=== PATIENT | male | born 1940 | race American Indian/Alaskan Native ===

== ENCOUNTER 2019-08-22 10:10 | Emergency (ER) | payer MEDICARE ==
[2019-08-22 11:03] LABS: Basophils % (Auto) 0.9 % (0.0-1.8); Eosinophils % (Auto) 0.7 % (0.0-4.3); Hematocrit 33.2 % (35.5-45.6); Hemoglobin 10.9 gm/dl (11.8-15.2); Lymphocytes # (Auto) 1.5 K/mm3 (1.2-5.4); Lymphocytes % (Auto) 39.7 % (13.4-35.0); Mean Corpuscular HGB Conc 33 % (32-34); Mean Corpuscular Volume 100 fl (84-94); Monocytes # (Auto) 0.3 K/mm3 (0.0-0.8); Monocytes % (Auto) 7.9 % (0.0-7.3); Platelet Count 137 K/mm3 (140-440); Red Blood Count 3.33 M/mm3 (3.65-5.03); Red Cell Distribution Width 15.2 % (13.2-15.2)
[2019-08-22 11:25] LABS: Albumin 3.9 g/dL (3.9-5); Calcium 9.2 mg/dL (8.4-10.2)
--- NOTE | 2019-08-22 12:39 | Emergency Department Report ---
HPI - General Chief Complaint: Fall Time Seen by Provider: 08/22/19 12:24 - HPI HPI: Room 7 The patient is an 79-year-old male presenting with a chief complaint of falls. Family brings the patient in stating that he has fallen twice in the past 6 days. Family states the patient first fell after becoming agitated 5 days ago. This morning at 06:00 she heard the patient fall and when she went in the bathroom she saw the patient lying on the floor on his right side with his head up against the toilet. Patient did not appear to have lost consciousness. The patient has a history of dementia and family states that he is behaving like his normal self as she is supposed to make sure there is no major damage done to his head from the fall. Patient denies complaints Location: [See above] Duration: [See above] Quality: [See above] Severity: [See above] Timing: [See above] Context: [See above] Modifying factors: [See above] Associated signs and symptoms: [see above] ED Past Medical Hx - Past Medical History Previous Medical History?: Yes Hx Hypertension: Yes Hx Renal Disease: Yes (stage 3) Hx Dementia: Yes Additional medical history: enlarged prostate - Surgical History Past Surgical History?: Yes Additional Surgical History: cataracts - Family History Family history: no significant - Social History Smoking Status: Never Smoker Substance Use Type: Alcohol (rarely) - Medications Home Medications: Home Medications Medication Instructions Recorded Confirmed Last Taken Type traMADoL [Ultram] 50 mg PO Q6HR PRN #10 tablet 08/22/19 Unknown Rx ED Review of Systems ROS: Stated complaint: FALL Other details as noted in HPI Constitutional: no symptoms reported Eyes: denies: eye pain ENT: denies: throat pain Respiratory: no symptoms reported Cardiovascular: denies: chest pain Endocrine: no symptoms reported Gastrointestinal: denies: abdominal pain Genitourinary: denies: dysuria Musculoskeletal: denies: back pain Neurological: denies: headache Physical Exam - Physical Exam Vital Signs: Vital Signs 08/22/19 10:27 Temperature 97.4 F L Pulse Rate 52 L Respiratory 17 Rate Blood Pressure 135/81 O2 Sat by Pulse 100 Oximetry Physical Exam: GENERAL: The patient is well-developed well-nourished male lying on stretcher not appearing to be in acute distress. [] HEENT: Normocephalic. Subacute healing abrasion to the forehead. Extraocular m otions are intact. Patient has moist mucous membranes. NECK: Supple. There is no anorexia. All CHEST/LUNGS: Clear to auscultation. There is no respiratory distress noted. HEART/CARDIOVASCULAR: Regular. There is no tachycardia. There is no gallop rub or murmur. ABDOMEN: Abdomen is soft, nontender. Patient has normal bowel sounds. There is no abdominal distention. SKIN: There is no rash. There is no edema. There is no diaphoresis. NEURO: The patient is awake, alert, and pleasantly demented. The patient is cooperative. The patient has no focal neurologic deficits. The patient has nor mal speech. Cranial nerves II through XII grossly intact MUSCULOSKELETAL: We'll get her salicylate level: There is no evidence of acute injury. ED Course Vital Signs 08/22/19 10:27 Temperature 97.4 F L Pulse Rate 52 L Respiratory 17 Rate Blood Pressure 135/81 O2 Sat by Pulse 100 Oximetry ED Medical Decision Making - Lab Data Result diagrams: 08/22/19 10:51 08/22/19 10:51 - Radiology Data Radiology results: report reviewed (CT cervical spine), image reviewed (CT head, CT cervical spine) [place] [address] Cat Scan Report Signed Patient: JOHNNIE NEGRON MR#: [id number] : 1940 Acct:[id number] Age/Sex: 79 / M ADM Date: 08/22/19 Loc: ED Attending Dr: Ordering Physician: DINO HENRIQUEZ MD Date of Service: 08/22/19 Procedure(s): CT cervical spine wo con Accession Number(s): [id number] cc: DINO HENRIQUEZ MD CT CERVICAL SPINE SPINE WITHOUT CONTRAST INDICATION: Injury after fall. TECHNIQUE: Axial imaging performed through the cervical spine without the use of contrast. Sagittal and coronal reconstructed images were also reviewed. All CT scans at this location are performed using CT dose reduction for ALARA by means of automated exposure control. COMPARISON: None FINDINGS: Alignment: Spinal alignment is normal. Bones: There is no acute osseous abnormality. Mild to moderate degenerative disc disease is identified at C5-6. The remaining levels are within normal limits. Soft tissues: No acute or significant incidental soft tissue abnormality. IMPRESSION: Degenerative changes at C5-6. No evidence for acute injury. Signer Name: Jonah Keith Jr, MD Signed: 08/22/2019 2:58 PM Workstation Name: [id number] Transcribed By: TTR Dictated By: JONAH KEITH JR, MD Electronically Authenticated By: JONAH KEITH JR, MD Signed Date/Time: 08/22/191457 DD/ 56 TD/TT: - Differential Diagnosis closed head injury, ICH, cervical strain, cervical fracture Critical care attestation.: If time is entered above; I have spent that time in minutes in the direct care of this critically ill patient, excluding procedure time. ED Disposition Clinical Impression: Closed head injury, Pancytopenia Disposition: - TO HOME OR SELFCARE Is pt being admited?: No Does the pt Need Aspirin: No Condition: Stable Instructions: Minor Head Injury (ED) Additional Instructions: Return to the emergency department should you develop worsening symptoms, inability to tolerate food or liquids, high fever or any other concerns Prescriptions: traMADoL [Ultram] 50 mg PO Q6HR PRN #10 tablet PRN Reason: Pain Referrals: PRIMARY CARE, [Primary Care Provider] - 3-5 Days
[2019-08-22 14:15] VITALS: BP 143/70
--- NOTE | 2019-08-22 15:03 | Cat Scan Report ---
CT CERVICAL SPINE SPINE WITHOUT CONTRAST INDICATION: Injury after fall. TECHNIQUE: Axial imaging performed through the cervical spine without the use of contrast. Sagittal and coronal reconstructed images were also reviewed. All CT scans at this location are performed us ing CT dose reduction for ALARA by means of automated exposure control. COMPARISON: None FINDINGS: Alignment: Spinal alignment is normal. Bones: There is no acute osseous abnormality. Mild to moderate degenerative disc disease is identif ied at C5-6. The remaining levels are within normal limits. Soft tissues: No acute or significant incidental soft tissue abnormality. IMPRESSION: Degenerative changes at C5-6. No evidence for acute injury. Signer Name: Jonah Keith Jr, MD Signed: 08/22/2019 2:58 PM Workstation Name: [id number]
[2019-08-22 15:41] LABS: Bilirubin,Urine NEG (Negative); Blood,Urine NEG (Negative); Color,Urine Yellow (Yellow); Protein,Urine <15 mg/dL mg/dL (Negative); RBC,Urine < 1.0 /HPF (0.0-6.0); Urobilinogen,Urine < 2.0 mg/dL (<2.0); WBC,Urine < 1.0 /HPF (0.0-6.0)
--- NOTE | 2019-08-25 19:07 | Cat Scan Report ---
CT HEAD WITHOUT CONTRAST INDICATION / CLINICAL INFORMATION: head injury after fall. TECHNIQUE: Axial imaging performed from the skull apex through the skull base without the use of cont rast. Sagittal and coronal reformatted images. All CT scans at this location are performed using CT dose reduction for ALARA by means of automated exposure control. COMPARISON: None available. 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 The remaining brain parenchyma demonstrates normal density for this patient's age. Mild volume loss and c hronic white matter changes are noted. HEMORRHAGE: None. EXTRA-AXIAL SPACES: Normal in size and morphology for the patient's age. VENTRICULAR SYSTEM: Normal in size and morphology for the patient's age. MIDLINE SHIFT OR HERNIATION: None. CEREBELLUM / BRAINSTEM: No significant abnormality. CALVARIUM: No significant abnormality. ORBITS: Normal as visualized. PARANASAL SINUSES / MASTOID AIR CELLS: There appear to be retained secretions or possibly a polyp in the right sphenoid sinus. The remaining sinuses are clear. SOFT TISSUES of HEAD: No significant abnormality. ADDITIONAL FINDINGS: None. IMPRESSION: No acute intracranial abnormality. Signer Name: Jonah Keith Jr, MD Signed: 08/22/2019 2:32 PM Workstation Name: [id number]
== END 2019-08-22 16:07 | disposition home or self-care (01) ==
LOC: ED 10:10
DX: S00.81XA Abrasion of other part of head, initial encounter (principal); R51 Headache; I12.9 Hypertensive chronic kidney disease with stage 1 through stage 4 chronic kidney disease, or unspecified chronic kidney disease; N18.3 Chronic kidney disease, stage 3 (moderate); Z79.899 Other long term (current) drug therapy; W18.12XA Fall from or off toilet with subsequent striking against object, initial encounter; Y93.89 Activity, other specified; Y92.091 Bathroom in other non-institutional residence as the place of occurrence of the external cause; Y99.8 Other external cause status
CPT/HCPCS: 36415; 70450; 72125; 80053; 81001; 85025; 99284

== ENCOUNTER 2019-11-04 08:45 | Inpatient (IN) | payer MEDICARE ==
[2019-11-04] MEDS ORDERED: SODIUM CHLORIDE 0.9% 1000 ML 1,000 ML ONE ×2 (09:19→20:04)
[2019-11-04] MEDS ORDERED: SODIUM CHLORIDE 0.9% 1000 ML 1,000 ML IV ONE (09:40)
[2019-11-04 09:42] LABS: Hematocrit 32.2 % (35.5-45.6); Hemoglobin 10.2 gm/dl (11.8-15.2); Mean Corpuscular HGB Conc 32 % (32-34); Mean Corpuscular Volume 100 fl (84-94); Platelet Count 187 K/mm3 (140-440); Red Blood Count 3.22 M/mm3 (3.65-5.03); Red Cell Distribution Width 17.5 % (13.2-15.2)
[2019-11-04 09:56] LABS: INR 1.25 (0.87-1.13); Partial Thromboplastin Time 27.7 Sec. (24.2-36.6)
[2019-11-04 09:59] LABS: Creatine Kinase MB 14.7 ng/mL (0.0-4.0)
[2019-11-04 10:01] LABS: Alanine Aminotransferase 71 units/L (7-56); Albumin 2.9 g/dL (3.9-5); BUN/Creatinine Ratio 26; Blood Urea Nitrogen 78 mg/dL (9-20); Calcium 9.7 mg/dL (8.4-10.2); Hemolysis Index 10
--- NOTE | 2019-11-04 10:02 | XRay Report ---
CHEST 1 VIEW 11/04/2019 9:36 AM INDICATION / CLINICAL INFORMATION: YANNA. COMPARISON: Chest x-ray 09/14/2019 FINDINGS: SUPPORT DEVICES: None. HEART / MEDIASTINUM: No significant abnormality. LUNGS / PLEURA: Mild right-sided parenchymal disease has improved characteristic for resolving pneumo andrew. Previously noted left-sided pneumonia has nearly resolved with minimal residual parenchymal dise ase left lower lobe. No pneumothorax. ADDITIONAL FINDINGS: No significant additional findings. IMPRESSION: 1. Resolving bilateral bronchopneumonia. Signer Name: Carlos Du MD Signed: 11/04/2019 9:58 AM Workstation Name: [id number]
[2019-11-04 10:03] LABS: Bilirubin,Direct < 0.2 mg/dL (0-0.2)
--- NOTE | 2019-11-04 10:06 | Emergency Department Report ---
ED General Adult HPI - General Chief complaint: Altered Mental Status Stated complaint: ALTERED MENTAL STATUS Time Seen by Provider: 11/04/19 09:21 Source: EMS Mode of arrival: Stretcher Limitations: Altered Mental Status, Physical Limitation - History of Present Illness Initial comments: This is 79-year-old gentleman from [facility]. Medics states that they were summoned for altered mental status. They state that they were not informed of the patient's low blood pressure or if he had any recent history of fever. He arrived at this facility with respiratory difficulty. He was not able to provide any historical information. His blood pressure was 60 systolic. He was given fluid resuscitation and a central line was immediately placed. He was able to protect his airway and his pulse oximetry was adequately preserved (95%). He is noted to have a G-tube. Severity scale (0 -10): 0 - Related Data Home Medications Medication Instructions Recorded Confirmed Last Taken AtorvaSTATin [Lipitor] 40 mg PO QHS 09/09/19 11/04/19 Unknown Cyanocobalamin [Vitamin B-12] 1,000 mcg IM QMONTH 09/09/19 11/04/19 Unknown Finasteride [Proscar] 5 mg PO QHS 09/09/19 11/04/19 Unknown Folic Acid 1 mg PO DAILY 09/09/19 11/04/19 Unknown Vit-Fe Fumar-FA [ 1 tab PO DAILY 09/09/19 11/04/19 Unknown Vitamin] allopurinoL [Zyloprim] 300 mg PO QDAY 09/09/19 11/04/19 Unknown Previous Rx's Medication Instructions Recorded Last Taken Type Lansoprazole Solutab [Prevacid 30 mg FEEDTUBE QDAY 30 Days 10/09/19 Unknown Rx Solutab] tab.rapdis Metoprolol Xl [Metoprolol 25 mg PO QDAY #30 tablet 10/09/19 Unknown Rx SUCCINATE ER TAB] Tamsulosin [Flomax] 0.4 mg PO QDAY #30 capsule 10/09/19 Unknown Rx Allergies Allergy/AdvReac Type Severity Reaction Status Date / Time No Known Allergies Allergy Unverified 07/23/13 13:35 ED Review of Systems ROS: Stated complaint: ALTERED MENTAL STATUS Other details as noted in HPI Comment: Unobtainable due to pts medical conditions ED Past Medical Hx - Past Medical History Hx Hypertension: Yes Hx Renal Disease: Yes (stage 3. ARF) Hx Dementia: Yes Additional medical history: enlarged prostate - Surgical History Additional Surgical History: cataracts - Social History Smoking Status: Unknown if ever smoked Other Social History: [facility] resident - Medications Home Medications: Home Medications Medication Instructions Recorded Confirmed Last Taken Type AtorvaSTATin [Lipitor] 40 mg PO QHS 09/09/19 11/04/19 Unknown History Cyanocobalamin [Vitamin B-12] 1,000 mcg IM QMONTH 09/09/19 11/04/19 Unknown History Finasteride [Proscar] 5 mg PO QHS 09/09/19 11/04/19 Unknown History Folic Acid 1 mg PO DAILY 09/09/19 11/04/19 Unknown History Vit-Fe Fumar-FA [ 1 tab PO DAILY 09/09/19 11/04/19 Unknown History Vitamin] allopurinoL [Zyloprim] 300 mg PO QDAY 09/09/19 11/04/19 Unknown History Lansoprazole Solutab [Prevacid 30 mg FEEDTUBE QDAY 30 Days 10/09/19 11/04/19 Unknown Rx Solutab] tab.rapdis Metoprolol Xl [Metoprolol 25 mg PO QDAY #30 tablet 10/09/19 11/04/19 Unknown Rx SUCCINATE ER TAB] Tamsulosin [Flomax] 0.4 mg PO QDAY #30 capsule 10/09/19 11/04/19 Unknown Rx ED Physical Exam - General Limitations: Altered Mental Status, Physical Limitation General appearance: lethargic - Head Head exam: Present: atraumatic - Eye Eye exam: Present: PERRL. Absent: scleral icterus - ENT ENT exam: Present: mucous membranes dry - Neck Neck exam: Present: normal inspection - Respiratory Respiratory exam: Present: rhonchi, accessory muscle use, decreased breath sounds - Cardiovascular Cardiovascular Exam: Present: regular rate, normal rhythm. Absent: systolic murmur, diastolic murmur, rubs, gallop - GI/Abdominal GI/Abdominal exam: Present: soft, other (G tube site is clean with good hygiene). Absent: distended, tenderness, guarding, rebound, rigid - Extremities Exam Extremities exam: Present: normal inspection - Neurological Exam Neurological exam: Present: CN II-XII intact (as testable). Absent: motor sensory deficit - Psychiatric Psychiatric exam: Present: flat affect - Skin Skin exam: Present: warm, dry, intact, normal color. Absent: rash ED Course Vital Signs 11/04/19 11/04/19 11/04/19 08:53 09:00 09:16 Temperature Pulse Rate Respiratory 51 H 46 H Rate Blood Pressure 145/94 156/137 169/151 Blood Pressure [Left] O2 Sat by Pulse Oximetry 11/04/19 11/04/19 11/04/19 09:30 09:35 09:37 Temperature 95.6 F L 95.6 F L Pulse Rate 104 H 104 H Respiratory 54 H 40 H Rate Blood Pressure 58/33 Blood Pressure 58/33 [Left] O2 Sat by Pulse 96 Oximetry 11/04/19 11/04/19 11/04/19 09:45 10:00 10:16 Temperature Pulse Rate 102 H 99 H 93 H Respiratory 35 H 42 H 22 Rate Blood Pressure 67/32 61/37 63/24 Blood Pressure [Left] O2 Sat by Pulse 95 97 78 L Oximetry 11/04/19 11/04/19 11/04/19 10:30 10:45 11:00 Temperature Pulse Rate 99 H 94 H 95 H Respiratory 37 H 38 H 52 H Rate Blood Pressure 91/47 65/37 60/30 Blood Pressure [Left] O2 Sat by Pulse 99 98 97 Oximetry 11/04/19 11/04/19 11:15 11:16 Temperature Pulse Rate 95 H Respiratory 38 H 30 H Rate Blood Pressure Blood Pressure 60/30 [Left] O2 Sat by Pulse 97 97 Oximetry - Reevaluation(s) Reevaluation #1: Patient was given IV fluids. He was cultured. He was given antibiotics. His chest x-ray to me was suggested an infiltrate. Thus far no other focus of in fection was noted. Sepsis is presumed. He was found to be severely hyponatremic and hyperchloremic. His first liter with normal saline. I followed that by lactated Ringer's. Further fluid resuscitation will be per Dr. Dunaway. 11/04/19 13:34 11/04/19 13:40 I discussed with the family the patient's resuscitation status and how aggressive they would like us to be with his care RE mechanical ventilation if necessary or CPR. The or daughter informed me that she wanted everything done. She did admit that the patient is aphasic with obviously poor quality of life in the [facility]. She states that he was septic here in September. I informed her that he was likely suffering from septic shock again and that his prognosis may be poor. Dr. Dunaway also discussed resuscitation status with the family and received the same request. The patient does not require mechanical ventilator at this time. His pulse oximetry is fine and he is maintaining his airway. He is admitted to the ICU. - Central Line Placement Right Femoral Consent Obtained: emergent situation Time Out Performed: Yes Patient Placed on Monitor/Pulse Ox: Yes MD Prep: mask, gown, gloves, other Central Line Prep: Chlorhexidine scrub Local Anesthesia Used: Lidocaine 1% Amount of Anesthesia Used (mls): 5 (cc) Ultrasound Used for Placement: No Central Line Lumen Inserted: triple Bloods Obtained for Lab: Yes Central Line Position: good blood return (venous, nonpulsatile), all ports aspirated, flus, sutured in place with nyl Dressing Applied: Tegaderm Patient Tolerated Procedure: well Complications: none ED Medical Decision Making - Lab Data Result diagrams: 11/04/19 09:10 11/04/19 09:10 Laboratory Results - last 24 hr 11/04/19 11/04/19 11/04/19 09:10 09:10 09:10 WBC 7.4 RBC 3.22 L Hgb 10.2 L Hct 32.2 L MCV 100 H MCH 32 MCHC 32 RDW 17.5 H Plt Count 187 PT 15.9 H INR 1.25 H APTT 27.7 Sodium Potassium Chloride Carbon Dioxide Anion Gap BUN Creatinine Estimated GFR BUN/Creatinine Ratio Glucose Lactic Acid Calcium Magnesium Total Bilirubin Direct Bilirubin Indirect Bilirubin AST ALT Alkaline Phosphatase Total Creatine Kinase CK-MB (CK-2) CK-MB (CK-2) Rel Index Troponin T 0.193 H* NT-Pro-B Natriuret Pep Total Protein Albumin Albumin/Globulin Ratio 11/04/19 11/04/19 09:10 09:10 WBC RBC Hgb Hct MCV MCH MCHC RDW Plt Count PT INR APTT Sodium 160 H Potassium 4.3 Chloride 116.1 H Carbon Dioxide 16 L Anion Gap 32 BUN 78 H Creatinine 3.0 H Estimated GFR 24 BUN/Creatinine Ratio 26 Glucose 127 H Lactic Acid 10.90 H* Calcium 9.7 Magnesium 2.30 Total Bilirubin 0.40 Direct Bilirubin < 0.2 Indirect Bilirubin 0.2 AST 67 H ALT 71 H Alkaline Phosphatase 90 Total Creatine Kinase 815 H CK-MB (CK-2) 14.7 H CK-MB (CK-2) Rel Index 1.8 Troponin T NT-Pro-B Natriuret Pep 554.4 Total Protein 7.6 Albumin 2.9 L Albumin/Globulin Ratio 0.6 Laboratory Results - last 24 hr 11/04/19 11/04/19 11/04/19 09:10 09:10 09:10 WBC 7.4 RBC 3.22 L Hgb 10.2 L Hct 32.2 L MCV 100 H MCH 32 MCHC 32 RDW 17.5 H Plt Count 187 Add Manual Diff Complete Total Counted 100 Seg Neuts % (Manual) 77.0 H Band Neutrophils % 9.0 Lymphocytes % (Manual) 8.0 L Reactive Lymphs % (Man) 0 Monocytes % (Manual) 3.0 Eosinophils % (Manual) 2.0 Basophils % (Manual) 0 Metamyelocytes % 1.0 Myelocytes % 0 Promyelocytes % 0 Blast Cells % 0 Nucleated RBC % Not Reportable Seg Neutrophils # Man 5.7 Band Neutrophils # 0.7 Lymphocytes # (Manual) 0.6 L Abs React Lymphs (Man) 0.0 Monocytes # (Manual) 0.2 Eosinophils # (Manual) 0.1 Basophils # (Manual) 0.0 Metamyelocytes # 0.1 Myelocytes # 0.0 Promyelocytes # 0.0 Blast Cells # 0.0 WBC Morphology Not Reportable Hypersegmented Neuts Not Reportable Hyposegmented Neuts Not Reportable Hypogranular Neuts Not Reportable Smudge Cells Not Reportable Toxic Granulation Not Reportable Toxic Vacuolation Not Reportable Dohle Bodies Not Reportable Pelger-Huet Anomaly Not Reportable Kp Rods Not Reportable Platelet Estimate Consistent w auto Clumped Platelets Not Reportable Plt Clumps, EDTA Not Reportable Large Platelets Not Reportable Giant Platelets Not Reportable Platelet Satelliting Not Reportable Plt Morphology Comment Not Reportable RBC Morphology Not Reportable Dimorphic RBCs Not Reportable Polychromasia Not Reportable Hypochromasia Not Reportable Poikilocytosis Not Reportable Anisocytosis Few Microcytosis Not Reportable Macrocytosis Not Reportable Spherocytes Not Reportable Pappenheimer Bodies Not Reportable Sickle Cells Not Reportable Target Cells Not Reportable Tear Drop Cells Not Reportable Ovalocytes Not Reportable Helmet Cells Not Reportable [employer] Bodies Not Reportable [place] Rings Not Reportable [place] Cells Not Reportable Bite Cells Not Reportable Crenated Cell Not Reportable Elliptocytes Not Reportable Acanthocytes (Spur) Not Reportable Rouleaux Not Reportable Hemoglobin C Crystals Not Reportable Schistocytes Not Reportable Malaria parasites Not Reportable Warren Bodies Not Reportable Hem Pathologist Commnt No PT 15.9 H INR 1.25 H APTT 27.7 ABG pH ABG pCO2 ABG pO2 ABG HCO3 ABG O2 Saturation ABG O2 Content ABG Base Excess ABG Hemoglobin ABG Carboxyhemoglobin ABG Methemoglobin Oxyhemoglobin FiO2 Sodium Potassium Chloride Carbon Dioxide Anion Gap BUN Creatinine Estimated GFR BUN/Creatinine Ratio Glucose Lactic Acid Calcium Magnesium Total Bilirubin Direct Bilirubin Indirect Bilirubin AST ALT Alkaline Phosphatase Total Creatine Kinase CK-MB (CK-2) CK-MB (CK-2) Rel Index Troponin T 0.193 H* NT-Pro-B Natriuret Pep Total Protein Albumin Albumin/Globulin Ratio Triglycerides 56 Cholesterol 96 LDL Cholesterol Direct 59 HDL Cholesterol 38 L Cholesterol/HDL Ratio 2.52 11/04/19 11/04/19 11/04/19 09:10 09:10 10:20 WBC RBC Hgb Hct MCV MCH MCHC RDW Plt Count Add Manual Diff Total Counted Seg Neuts % (Manual) Band Neutrophils % Lymphocytes % (Manual) Reactive Lymphs % (Man) Monocytes % (Manual) Eosinophils % (Manual) Basophils % (Manual) Metamyelocytes % Myelocytes % Promyelocytes % Blast Cells % Nucleated RBC % Seg Neutrophils # Man Band Neutrophils # Lymphocytes # (Manual) Abs React Lymphs (Man) Monocytes # (Manual) Eosinophils # (Manual) Basophils # (Manual) Metamyelocytes # Myelocytes # Promyelocytes # Blast Cells # WBC Morphology Hypersegmented Neuts Hyposegmented Neuts Hypogranular Neuts Smudge Cells Toxic Granulation Toxic Vacuolation Dohle Bodies Pelger-Huet Anomaly Kp Rods Platelet Estimate Clumped Platelets Plt Clumps, EDTA Large Platelets Giant Platelets Platelet Satelliting Plt Morphology Comment RBC Morphology Dimorphic RBCs Polychromasia Hypochromasia Poikilocytosis Anisocytosis Microcytosis Macrocytosis Spherocytes Pappenheimer Bodies Sickle Cells Target Cells Tear Drop Cells Ovalocytes Helmet Cells [employer] Bodies [place] Rings Saman Cells Bite Cells Crenated Cell Elliptocytes Acanthocytes (Spur) Rouleaux Hemoglobin C Crystals Schistocytes Malaria parasites Warren Bodies Hem Pathologist Commnt PT INR APTT ABG pH 7.351 ABG pCO2 31.4 ABG pO2 77.6 L ABG HCO3 17.0 L ABG O2 Saturation 95.1 ABG O2 Content 12.7 ABG Base Excess -7.6 L ABG Hemoglobin 9.7 L ABG Carboxyhemoglobin 1.7 ABG Methemoglobin 0.6 Oxyhemoglobin 92.9 L FiO2 10 Sodium 160 H Potassium 4.3 Chloride 116.1 H Carbon Dioxide 16 L Anion Gap 32 BUN 78 H Creatinine 3.0 H Estimated GFR 24 BUN/Creatinine Ratio 26 Glucose 127 H Lactic Acid 10.90 H* Calcium 9.7 Magnesium 2.30 Total Bilirubin 0.40 Direct Bilirubin < 0.2 Indirect Bilirubin 0.2 AST 67 H ALT 71 H Alkaline Phosphatase 90 Total Creatine Kinase 815 H CK-MB (CK-2) 14.7 H CK-MB (CK-2) Rel Index 1.8 Troponin T NT-Pro-B Natriuret Pep 554.4 Total Protein 7.6 Albumin 2.9 L Albumin/Globulin Ratio 0.6 Triglycerides Cholesterol LDL Cholesterol Direct HDL Cholesterol Cholesterol/HDL Ratio - EKG Data -: EKG Interpreted by Me EKG shows normal: sinus rhythm - EKG Data Interpretation: no acute changes, nonspecific ST-T wave xochitl - Radiology Data Radiology results: report reviewed (resolving bilateral pneumonia per the radiologist), image reviewed Critical Care Time: Yes Critical care time in (mins) excluding proc time.: 60 Critical care attestation.: If time is entered above; I have spent that time in minutes in the direct care of this critically ill patient, excluding procedure time. ED Disposition Clinical Impression: Septic shock Bilateral pneumonia Qualifiers: Pneumonia type: due to unspecified organism Lung location: unspecified part of lung Qualified Code(s): J18.9 - Pneumonia, unspecified organism Disposition: OP ADMIT IP TO THIS HOSP Is pt being admited?: Yes Does the pt Need Aspirin: Yes Condition: Stable Instructions: Bacterial Pneumonia (ED) Referrals: PRIMARY CARE, [Primary Care Provider] - 3-5 Days Time of Disposition: 13:45
[2019-11-04 10:16] LABS: Chol/HDL Ratio 2.52 %
[2019-11-04 10:29] LABS: ABG Base Excess -7.6 mmol/L (-2.0-3.0); ABG Methemoglobin 0.6 % (0.0-1.5); ABG Oxygen Saturation 95.1 % (95.0-99.0); ABG PCO2 31.4 mm Hg; ABG PH 7.351 pH Units (7.350-7.450); ABG PO2 77.6 mm Hg (80.0-90.0)
[2019-11-04] MEDS: NORepinephrine/NS 4 MG-250 ML 4 MG/250 ML BAG IV SCH ×2 (10:35→19:36)
[2019-11-04 10:36] LABS: Band Neutrophils # (Manual) 0.7 K/mm3; Basophils % (Manual) 0 % (0.0-1.8); Total Cells Counted 100
[2019-11-04 10:38] LABS: Anisocytosis Few; Platelet Estimate Consistent w Auto
[2019-11-04] MEDS ORDERED: LACTATED RINGERS 1,000 ML IV ONE (10:46)
[2019-11-04] MEDS ORDERED: ASPIRIN 300 MG RECT SUPP PR ONE (13:45)
--- NOTE | 2019-11-04 15:38 | Cat Scan Report ---
CT BRAIN: 11/04/2019 INDICATION / CLINICAL INFORMATION: altered mental status. COMPARISON: 09/09/2019 FINDINGS: BRAIN/INTRACRANIAL STRUCTURES: Unenhanced CT images of the brain were obtained and compared to the pr ior exam from 09/09/2019. There is been no change. Again seen is extensive encephalomalacia in the left hemisphere, consistent with prior ischemic injur y. Underlying diffuse cerebral atrophy is again noted. There is no evidence of acute superimposed ischemic injury, hemorrhage, or mass. There are no abnorma l extra-axial fluid collections. EXTRACRANIAL STRUCTURES: Unremarkable. IMPRESSION: No acute abnormality. Extensive chronic ischemic changes and cerebral atrophy. All CT scans at this location are performed using dose reduction to ALARA by means of automated expos ure control. Signer Name: Fam Diop MD Signed: 11/04/2019 3:33 PM Workstation Name: [id number]
--- NOTE | 2019-11-04 17:45 | History and Physical Report ---
History of Present Illness Date of examination: 11/04/19 Date of admission: 11/04/19 13:48 Chief complaint: AMS History of present illness: Patient is a 79 yo man from [facility] with a history of hypertension, CKD 3, Dementia, thrombocytopenia, hypernatremia, BPH, dyslipidemia, CVA with aphasia, who presented with acute onset of AMS They state that they were not informed of the patient's low blood pressure or if he had any recent history of fever. He arrived at this facility with respiratory difficulty. He was not able to provide any historical information. His blood pressure was 60 systolic. He was given fluid resuscitation and a central line was immediately placed. He was able to protect his airway and his pulse oximetry was adequately preserved (95%). He is noted to have a G-tube. He gives no history. Daughter Katharina gives history. PMH: as hpi PSH: unable to kearns due to AMS SH: unable to kearns due to AMS FH: unable to kearns due to AMS ROS: unable to kearns due to AMS Medications and Allergies Allergies Allergy/AdvReac Type Severity Reaction Status Date / Time No Known Allergies Allergy Unverified 07/23/13 13:35 Home Medications Medication Instructions Recorded Confirmed Last Taken Type AtorvaSTATin [Lipitor] 40 mg PO QHS 09/09/19 11/04/19 Unknown History Cyanocobalamin [Vitamin B-12] 1,000 mcg IM QMONTH 09/09/19 11/04/19 Unknown History Finasteride [Proscar] 5 mg PO QHS 09/09/19 11/04/19 Unknown History Folic Acid 1 mg PO DAILY 09/09/19 11/04/19 Unknown History Vit-Fe Fumar-FA [ 1 tab PO DAILY 09/09/19 11/04/19 Unknown History Vitamin] allopurinoL [Zyloprim] 300 mg PO QDAY 09/09/19 11/04/19 Unknown History Lansoprazole Solutab [Prevacid 30 mg FEEDTUBE QDAY 30 Days 10/09/19 11/04/19 Unknown Rx Solutab] tab.rapdis Metoprolol Xl [Metoprolol 25 mg PO QDAY #30 tablet 10/09/19 11/04/19 Unknown Rx SUCCINATE ER TAB] Tamsulosin [Flomax] 0.4 mg PO QDAY #30 capsule 10/09/19 11/04/19 Unknown Rx Active Meds: Active Medications Norepinephrine (Levophed Drip 4 Mg/Ns 250 Ml) 4 mg in 250 mls @ 7.5 mls/hr IV TITR [facility]; Protocol Last Titration: 11/04/19 12:35 Dose: 6 mcg/min, 22.5 mls/hr Documented by: Exam - Physical Exam Narrative exam: Gen: cachetic, chronic disable, moderate increase accessory muscles, moaning, NRB 100% o2 mask applied HEENT: muslim muscle wasting, NCAT,> resist eyes being examined, OP dry Neck: supple, no adenopathy, no thyromegaly, no JVD CVS/Heart: RRR, normal S1S2, pulses present bilaterally Chest/Lungs: diminished and coarse bs bilaterally, Symmetrical chest expansion, reduced air entry bilaterally GI/Abdomen: soft, NTND, good bowel sounds, no guarding or rebound /Bladder: no suprapubic tenderness, no CVA or paraspinal tenderness Extermity/Skin: atrophy tenar and hypotenar muscles, poor skin intergrity MSK: FROM x 3 Neuro: CN 2-12 grossly intact except speech, doesnt follow commands Psych: anxious - Constitutional Vitals: Temp Pulse Resp BP Pulse Ox 95.6 F L 102 H 29 H 94/58 96 11/04/19 09:37 11/04/19 17:16 11/04/19 17:16 11/04/19 17:16 11/04/19 17:16 Results - Labs CBC & Chem 7: 11/04/19 09:10 11/04/19 09:10 Labs: Laboratory Last Values WBC 7.4 K/mm3 (4.5-11.0) 11/04/19 09:10 RBC 3.22 M/mm3 (3.65-5.03) L 11/04/19 09:10 Hgb 10.2 gm/dl (11.8-15.2) L 11/04/19 09:10 Hct 32.2 % (35.5-45.6) L 11/04/19 09:10 MCV 100 fl (84-94) H 11/04/19 09:10 MCH 32 pg (28-32) 11/04/19 09:10 MCHC 32 % (32-34) 11/04/19 09:10 RDW 17.5 % (13.2-15.2) H 11/04/19 09:10 Plt Count 187 K/mm3 (140-440) 11/04/19 09:10 Add Manual Diff Complete 11/04/19 09:10 Total Counted 100 11/04/19 09:10 Seg Neuts % (Manual) 77.0 % (40.0-70.0) H 11/04/19 09:10 Band Neutrophils % 9.0 % 11/04/19 09:10 Lymphocytes % (Manual) 8.0 % (13.4-35.0) L 11/04/19 09:10 Reactive Lymphs % (Man) 0 % 11/04/19 09:10 Monocytes % (Manual) 3.0 % (0.0-7.3) 11/04/19 09:10 Eosinophils % (Manual) 2.0 % (0.0-4.3) 11/04/19 09:10 Basophils % (Manual) 0 % (0.0-1.8) 11/04/19 09:10 Metamyelocytes % 1.0 % 11/04/19 09:10 Myelocytes % 0 % 11/04/19 09:10 Promyelocytes % 0 % 11/04/19 09:10 Blast Cells % 0 % 11/04/19 09:10 Nucleated RBC % Not Reportable 11/04/19 09:10 Seg Neutrophils # Man 5.7 K/mm3 (1.8-7.7) 11/04/19 09:10 Band Neutrophils # 0.7 K/mm3 11/04/19 09:10 Lymphocytes # (Manual) 0.6 K/mm3 (1.2-5.4) L 11/04/19 09:10 Abs React Lymphs (Man) 0.0 K/mm3 11/04/19 09:10 Monocytes # (Manual) 0.2 K/mm3 (0.0-0.8) 11/04/19 09:10 Eosinophils # (Manual) 0.1 K/mm3 (0.0-0.4) 11/04/19 09:10 Basophils # (Manual) 0.0 K/mm3 (0.0-0.1) 11/04/19 09:10 Metamyelocytes # 0.1 K/mm3 11/04/19 09:10 Myelocytes # 0.0 K/mm3 11/04/19 09:10 Promyelocytes # 0.0 K/mm3 11/04/19 09:10 Blast Cells # 0.0 K/mm3 11/04/19 09:10 WBC Morphology Not Reportable 11/04/19 09:10 Hypersegmented Neuts Not Reportable 11/04/19 09:10 Hyposegmented Neuts Not Reportable 11/04/19 09:10 Hypogranular Neuts Not Reportable 11/04/19 09:10 Smudge Cells Not Reportable 11/04/19 09:10 Toxic Granulation Not Reportable 11/04/19 09:10 Toxic Vacuolation Not Reportable 11/04/19 09:10 Dohle Bodies Not Reportable 11/04/19 09:10 Pelger-Huet Anomaly Not Reportable 11/04/19 09:10 Kp Rods Not Reportable 11/04/19 09:10 Platelet Estimate Consistent w auto 11/04/19 09:10 Clumped Platelets Not Reportable 11/04/19 09:10 Plt Clumps, EDTA Not Reportable 11/04/19 09:10 Large Platelets Not Reportable 11/04/19 09:10 Giant Platelets Not Reportable 11/04/19 09:10 Platelet Satelliting Not Reportable 11/04/19 09:10 Plt Morphology Comment Not Reportable 11/04/19 09:10 RBC Morphology Not Reportable 11/04/19 09:10 Dimorphic RBCs Not Reportable 11/04/19 09:10 Polychromasia Not Reportable 11/04/19 09:10 Hypochromasia Not Reportable 11/04/19 09:10 Poikilocytosis Not Reportable 11/04/19 09:10 Anisocytosis Few 11/04/19 09:10 Microcytosis Not Reportable 11/04/19 09:10 Macrocytosis Not Reportable 11/04/19 09:10 Spherocytes Not Reportable 11/04/19 09:10 Pappenheimer Bodies Not Reportable 11/04/19 09:10 Sickle Cells Not Reportable 11/04/19 09:10 Target Cells Not Reportable 11/04/19 09:10 Tear Drop Cells Not Reportable 11/04/19 09:10 Ovalocytes Not Reportable 11/04/19 09:10 Helmet Cells Not Reportable 11/04/19 09:10 [place] Bodies Not Reportable 11/04/19 09:10 [place] Rings Not Reportable 11/04/19 09:10 Varney Cells Not Reportable 11/04/19 09:10 Bite Cells Not Reportable 11/04/19 09:10 Crenated Cell Not Reportable 11/04/19 09:10 Elliptocytes Not Reportable 11/04/19 09:10 Acanthocytes (Spur) Not Reportable 11/04/19 09:10 Rouleaux Not Reportable 11/04/19 09:10 Hemoglobin C Crystals Not Reportable 11/04/19 09:10 Schistocytes Not Reportable 11/04/19 09:10 Malaria parasites Not Reportable 11/04/19 09:10 Warren Bodies Not Reportable 11/04/19 09:10 Hem Pathologist Commnt No 11/04/19 09:10 PT 15.9 Sec. (12.2-14.9) H 11/04/19 09:10 INR 1.25 (0.87-1.13) H 11/04/19 09:10 APTT 27.7 Sec. (24.2-36.6) 11/04/19 09:10 ABG pH 7.351 pH Units (7.350-7.450) 11/04/19 10:20 ABG pCO2 31.4 mm Hg 11/04/19 10:20 ABG pO2 77.6 mm Hg (80.0-90.0) L 11/04/19 10:20 ABG HCO3 17.0 mmol/L (20.0-26.0) L 11/04/19 10:20 ABG O2 Saturation 95.1 % (95.0-99.0) 11/04/19 10:20 ABG O2 Content 12.7 (0.0-44) 11/04/19 10:20 ABG Base Excess -7.6 mmol/L (-2.0-3.0) L 11/04/19 10:20 ABG Hemoglobin 9.7 gm/dl (14.0-18.0) L 11/04/19 10:20 ABG Carboxyhemoglobin 1.7 % (0.0-5.0) 11/04/19 10:20 ABG Methemoglobin 0.6 % (0.0-1.5) 11/04/19 10:20 Oxyhemoglobin 92.9 % (95.0-99.0) L 11/04/19 10:20 FiO2 10 % 11/04/19 10:20 Sodium 160 mmol/L (137-145) H 11/04/19 09:10 Potassium 4.3 mmol/L (3.6-5.0) 11/04/19 09:10 Chloride 116.1 mmol/L (98-107) H 11/04/19 09:10 Carbon Dioxide 16 mmol/L (22-30) L 11/04/19 09:10 Anion Gap 32 mmol/L 11/04/19 09:10 BUN 78 mg/dL (9-20) H 11/04/19 09:10 Creatinine 3.0 mg/dL (0.8-1.5) H 11/04/19 09:10 Estimated GFR 24 ml/min 11/04/19 09:10 BUN/Creatinine Ratio 26 % 11/04/19 09:10 Glucose 127 mg/dL (75-100) H 11/04/19 09:10 Lactic Acid 9.20 mmol/L (0.7-2.0) H* 11/04/19 16:18 Calcium 9.7 mg/dL (8.4-10.2) 11/04/19 09:10 Magnesium 2.30 mg/dL (1.7-2.3) 11/04/19 09:10 Total Bilirubin 0.40 mg/dL (0.1-1.2) 11/04/19 09:10 Direct Bilirubin < 0.2 mg/dL (0-0.2) 11/04/19 09:10 Indirect Bilirubin 0.2 mg/dL 11/04/19 09:10 AST 67 units/L (5-40) H 11/04/19 09:10 ALT 71 units/L (7-56) H 11/04/19 09:10 Alkaline Phosphatase 90 units/L (35-129) 11/04/19 09:10 Total Creatine Kinase 815 units/L (55-170) H 11/04/19 09:10 CK-MB (CK-2) 14.7 ng/mL (0.0-4.0) H 11/04/19 09:10 CK-MB (CK-2) Rel Index 1.8 (0-4) 11/04/19 09:10 Troponin T 0.193 ng/mL (0.00-0.029) H* 11/04/19 09:10 NT-Pro-B Natriuret Pep 554.4 pg/mL (0-900) 11/04/19 09:10 Total Protein 7.6 g/dL (6.3-8.2) 11/04/19 09:10 Albumin 2.9 g/dL (3.9-5) L 11/04/19 09:10 Albumin/Globulin Ratio 0.6 % 11/04/19 09:10 Triglycerides 56 mg/dL (2-149) 11/04/19 09:10 Cholesterol 96 mg/dL (50-199) 11/04/19 09:10 LDL Cholesterol Direct 59 mg/dL (50-130) 11/04/19 09:10 HDL Cholesterol 38 mg/dL (40-59) L 11/04/19 09:10 Cholesterol/HDL Ratio 2.52 % 11/04/19 09:10 Assessment and Plan Assessment and plan: Patient is a 79 yo man from [facility] with a history of hype rtension, CKD 3, Dementia, thrombocytopenia, hypernatremia, BPH, dyslipidemia, CVA with aphasia, who presented with acute onset of AMS They state that they were not informed of the patient's low blood pressure or if he had any recent history of fever. He arrived at this facility with respiratory difficulty. His blood pressure was 60 systolic. He was given fluid resuscitation and a central line was immediately placed. He was able to protect his airway and his pulse oximetry was adequately preserved (95%). He is noted to have a G-tube. He gives no history. Daughter Lynn, who is stated POA gives a history of having history of CVA with aphasia but was able to walk up until 09/10/2019 when [place] [facility] [place] [facility] [place] this hospital from 09/10/19 until 10/09/2019 and was discharged to [facility]. During that hospitalization, he had PNA, GIB/coffee ground emesis s/p EGD that showed antral gastritis and moderate distal esophagitis, PEG placement on 10/03/19. * pCXR Impression: Resolving bilateral bronchopneumonia * CT head without contrast: No acute abnormality, extensive chronic ischemic changes and cerebral atrophy Acute Metabolic Encephalopathy with sodium level of 160, needing inpatient admission to address Severe hyponatremia: more free water needed, monitor bmp daily, consulted Nephro logy Hypovolemic shock s/p right TLC femoral line: Currently on Levophed 6 mcg, hold metoprolol and flomax, continue proscar ARF/CKD 3 due to ATN: consulted Renal, treated NSS but sodium level high. 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
[2019-11-04] MEDS ORDERED: cefTRIAXone/NS 1 GM/50 ML 1 GM/50 ML BAG IV ONE (18:15)
[2019-11-04] MEDS: cefTRIAXone/NS 1 GM/50 ML 1 GM/50 ML BAG IV SCH (18:30)
[2019-11-04] MEDS ORDERED: CYANOCOBALAMIN (VIT B-12) 1000 MCG/1 ML INJ IM SCH (19:00)
[2019-11-04] MEDS ORDERED: NORepinephrine/NS 4 MG-250 ML 4 MG/250 ML BAG IV ONE (19:35)
[2019-11-04] MEDS: AZITHROMYCIN 500 MG in SODIUM CHLORIDE 0.9% 250ML 250 ML IV SCH (19:36)
[2019-11-04] MEDS ORDERED: METOCLOPRAMIDE 10 MG/2 ML INJ IV PRN (19:58)
[2019-11-04] MEDS ORDERED: SODIUM CHLORIDE 0.9% 1000 ML 1,000 ML IV SCH (20:00)
[2019-11-04] MEDS ORDERED: ONDANSETRON 4 MG/2 ML INJ ONE (20:04)
[2019-11-04] MEDS: ONDANSETRON 4 MG/2 ML INJ IV PRN (20:09)
[2019-11-04] MEDS: FINASTERIDE 5 MG TAB PO SCH (22:44)
[2019-11-05] MEDS: NORepinephrine/NS 4 MG-250 ML 4 MG/250 ML BAG IV SCH ×2 (01:08→08:09)
[2019-11-05 05:00] LABS: Hematocrit 30.6 % (35.5-45.6); Hemoglobin 10.1 gm/dl (11.8-15.2); Mean Corpuscular HGB Conc 33 % (32-34); Mean Corpuscular Volume 99 fl (84-94); Platelet Count 150 K/mm3 (140-440); Red Cell Distribution Width 17.4 % (13.2-15.2)
[2019-11-05 05:18] LABS: Calcium 9.4 mg/dL (8.4-10.2)
[2019-11-05] MEDS: LANSOPRAZOLE 30 MG SOLUTAB FEEDTUBE SCH (10:23)
[2019-11-05] MEDS: FOLIC ACID 1 MG TAB PO SCH (10:23)
[2019-11-05] MEDS: cefTRIAXone/NS 1 GM/50 ML 1 GM/50 ML BAG IV SCH (10:23)
[2019-11-05] MEDS: allopurinoL 300 MG TAB PO SCH (10:23)
[2019-11-05] MEDS: AZITHROMYCIN 500 MG in SODIUM CHLORIDE 0.9% 250ML 250 ML IV SCH (10:23)
--- NOTE | 2019-11-05 10:42 | Consultation ---
History of Present Illness - Reason for Consult Consult date: 11/05/19 acute renal failure, chronic renal failure, hyperkalemia Requesting physician: YORDAN DOWNING - History of Present Illness This is 79-year-old gentleman from [facility]. Medics states that they were summoned for altered mental status. They state that they were not informed of the patient's low blood pressure or if he had any recent history of fever. He arrived at this facility with respiratory difficulty. He was not able to provide any historical information. His blood pressure was 60 systolic. He was given fluid resuscitation and a central line was immediately placed. He was able to protect his airway and his pulse oximetry was adequately preserved (95%). He is noted to have a G-tube. ROS: Stated complaint: ALTERED MENTAL STATUS Other details as noted in HPI Comment: Unobtainable due to pts medical conditions - Past Medical History Hx Hypertension: Yes Hx Renal Disease: Yes (stage 3. ARF) Hx Dementia: Yes Additional medical history: enlarged prostate - Surgical History Additional Surgical History: cataracts - Social History Smoking Status: Unknown if ever smoked Other Social History: prison resident Medications and Allergies Allergies Allergy/AdvReac Type Severity Reaction Status Date / Time No Known Allergies Allergy Unverified 07/23/13 13:35 Home Medications Medication Instructions Recorded Confirmed Last Taken Type AtorvaSTATin [Lipitor] 40 mg PO QHS 09/09/19 11/04/19 Unknown History Cyanocobalamin [Vitamin B-12] 1,000 mcg IM QMONTH 09/09/19 11/04/19 Unknown History Finasteride [Proscar] 5 mg PO QHS 09/09/19 11/04/19 Unknown History Folic Acid 1 mg PO DAILY 09/09/19 11/04/19 Unknown History Vit-Fe Fumar-FA [ 1 tab PO DAILY 09/09/19 11/04/19 Unknown History Vitamin] allopurinoL [Zyloprim] 300 mg PO QDAY 09/09/19 11/04/19 Unknown History Lansoprazole Solutab [Prevacid 30 mg FEEDTUBE QDAY 30 Days 10/09/19 11/04/19 Unknown Rx Solutab] tab.rapdis Metoprolol Xl [Metoprolol 25 mg PO QDAY #30 tablet 10/09/19 11/04/19 Unknown Rx SUCCINATE ER TAB] Tamsulosin [Flomax] 0.4 mg PO QDAY #30 capsule 10/09/19 11/04/19 Unknown Rx Active Meds: Active Medications Allopurinol (Zyloprim) 300 mg PO QDAY [facility] Last Admin: 11/05/19 10:23 Dose: 300 mg Documented by: Atorvastatin Calcium (Lipitor) 40 mg PO QHS [facility] Last Admin: 11/04/19 22:45 Dose: Not Given Documented by: Cyanocobalamin (Vitamin B-12) 1,000 mcg IM QMONTH [facility] Last Admin: 11/04/19 23:10 Dose: 1,000 mcg Documented by: Finasteride (Proscar) 5 mg PO QHS [facility] Last Admin: 11/04/19 22:44 Dose: Not Given Documented by: Folic Acid (Folvite) 1 mg PO DAILY [facility] Last Admin: 11/05/19 10:23 Dose: 1 mg Documented by: Norepinephrine (Levophed Drip 4 Mg/Ns 250 Ml) 4 mg in 250 mls @ 7.5 mls/hr IV TITR [facility]; Protocol Last Titration: 11/05/19 10:31 Dose: 0 mcg/min, 0 mls/hr Documented by: Azithromycin 500 mg/ Sodium (Chloride) 250 mls @ 250 mls/hr IV Q24HR [facility]; Protocol Last Admin: 11/05/19 10:23 Dose: 250 mls/hr Documented by: Ceftriaxone Sodium (Rocephin/Ns 1 Gm/50 Ml) 1 gm in 50 mls @ 100 mls/hr IV Q24HR [facility]; Protocol Last Admin: 11/05/19 10:23 Dose: 100 mls/hr Documented by: Sodium Chloride (Nacl 0.9% 1000 Ml) 1,000 mls @ 75 mls/hr IV DIRECT [facility] Last Admin: 11/04/19 20:09 Dose: 75 mls/hr Documented by: Lansoprazole (Prevacid Solutab) 30 mg FEEDTUBE QDAY [facility] Last Admin: 11/05/19 10:23 Dose: 30 mg Documented by: Metoclopramide HCl (Reglan) 10 mg IV Q6H PRN PRN Reason: Nausea And Vomiting Ondansetron HCl (Zofran) 4 mg IV Q3HR PRN PRN Reason: Nausea And Vomiting Last Admin: 11/04/19 20:09 Dose: 4 mg Documented by: Exam - Vital Signs Vital signs: Vital Signs BP 145/94 11/04/19 08:53 - Physical Exam Narrative exam: - General Limitations: Altered Mental Status, Physical Limitation General appearance: lethargic - Head Head exam: Present: atraumatic - Eye Eye exam: Present: PERRL. Absent: scleral icterus - ENT ENT exam: Present: mucous membranes dry - Neck Neck exam: Present: normal inspection - Respiratory Respiratory exam: Present: rhonchi, accessory muscle use, decreased breath sounds - Cardiovascular Cardiovascular Exam: Present: regular rate, normal rhythm. Absent: systolic murmur, diastolic murmur, rubs, gallop - GI/Abdominal GI/Abdominal exam: Present: soft, other (G tube site is clean with good hygiene). Absent: distended, tenderness, guarding, rebound, rigid - Extremities Exam Extremities exam: Present: normal inspection - Neurological Exam Neurological exam: Present: CN II-XII intact (as testable). Absent: motor sensory deficit - Psychiatric Psychiatric exam: Present: flat affect - Skin Skin exam: Present: warm, dry, intact, normal color. Absent: rash Results - Lab Results 11/05/19 04:30 11/05/19 04:30 Most recent lab results ABG pH 7.351 pH Units (7.350-7.450) 11/04/19 10:20 ABG pCO2 31.4 mm Hg 11/04/19 10:20 ABG pO2 77.6 mm Hg (80.0-90.0) L 11/04/19 10:20 ABG HCO3 17.0 mmol/L (20.0-26.0) L 11/04/19 10:20 ABG O2 Saturation 95.1 % (95.0-99.0) 11/04/19 10:20 Calcium 9.4 mg/dL (8.4-10.2) 11/05/19 04:30 Magnesium 2.30 mg/dL (1.7-2.3) 11/04/19 09:10 Assessment and Plan Impression: * Acute kidney injury secondary to prerenal azotemia due to dehydration on stage III CKD * hyperkalemia * sepsis * Hypernatremia, severe * Dehydration * Acute encephalopathy * Bacteruria r/o UTI Plan: * add D5W with 75meq on NaHCO3, will treat the hyperkalemia * Serial Na and daily lytes * 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
[2019-11-05] MEDS ORDERED: SODIUM BICARBONATE 150 MEQ in DEXTROSE 5% IN WATER 1,000 ML IV SCH (11:00)
[2019-11-05] MEDS ORDERED: LACTATED RINGERS 1,000 ML IV SCH (11:00)
--- NOTE | 2019-11-05 11:24 | Consultation ---
History of Present Illness - Reason for Consult Consult date: 11/05/19 Hypotension, concerned for sepsis Requesting physician: FROILAN MOHAN - History of Present Illness 79 y/o male, [facility] resident admitted with altered mental status. Patient has known dementia and old CVA with aphasia. 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 and cannot provide history. Past History Past Medical History: hypertension, other (dementia, CVA aphasia) Past Surgical History: No surgical history Social history: no significant social history Medications and Allergies Allergies Allergy/AdvReac Type Severity Reaction Status Date / Time No Known Allergies Allergy Unverified 07/23/13 13:35 Home Medications Medication Instructions Recorded Confirmed Last Taken Type AtorvaSTATin [Lipitor] 40 mg PO QHS 09/09/19 11/04/19 Unknown History Cyanocobalamin [Vitamin B-12] 1,000 mcg IM QMONTH 09/09/19 11/04/19 Unknown H istory Finasteride [Proscar] 5 mg PO QHS 09/09/19 11/04/19 Unknown History Folic Acid 1 mg PO DAILY 09/09/19 11/04/19 Unknown History Vit-Fe Fumar-FA [ 1 tab PO DAILY 09/09/19 11/04/19 Unknown History Vitamin] allopurinoL [Zyloprim] 300 mg PO QDAY 09/09/19 11/04/19 Unknown History Lansoprazole Solutab [Prevacid 30 mg FEEDTUBE QDAY 30 Days 10/09/19 11/04/19 Unknown Rx Solutab] tab.rapdis Metoprolol Xl [Metoprolol 25 mg PO QDAY #30 tablet 10/09/19 11/04/19 Unknown Rx SUCCINATE ER TAB] Tamsulosin [Flomax] 0.4 mg PO QDAY #30 capsule 10/09/19 11/04/19 Unknown Rx Active Meds: Active Medications Allopurinol (Zyloprim) 300 mg PO QDAY [facility] Last Admin: 11/05/19 10:23 Dose: 300 mg Documented by: Atorvastatin Calcium (Lipitor) 40 mg PO QHS [facility] Last Admin: 11/04/19 22:45 Dose: Not Given Documented by: Cyanocobalamin (Vitamin B-12) 1,000 mcg IM QMONTH [facility] Last Admin: 11/04/19 23:10 Dose: 1,000 mcg Documented by: Finasteride (Proscar) 5 mg PO QHS [facility] Last Admin: 11/04/19 22:44 Dose: Not Given Documented by: Folic Acid (Folvite) 1 mg PO DAILY [facility] Last Admin: 11/05/19 10:23 Dose: 1 mg Documented by: Norepinephrine (Levophed Drip 4 Mg/Ns 250 Ml) 4 mg in 250 mls @ 7.5 mls/hr IV TITR [facility]; Protocol Last Titration: 11/05/19 10:31 Dose: 0 mcg/min, 0 mls/hr Documented by: Azithromycin 500 mg/ Sodium (Chloride) 250 mls @ 250 mls/hr IV Q24HR [facility]; Protocol Last Admin: 11/05/19 10:23 Dose: 250 mls/hr Documented by: Ceftriaxone Sodium (Rocephin/Ns 1 Gm/50 Ml) 1 gm in 50 mls @ 100 mls/hr IV Q 24HR [facility]; Protocol Last Admin: 11/05/19 10:23 Dose: 100 mls/hr Documented by: Lactated Ringer's (Lactated Ringers) 1,000 mls @ 999 mls/hr IV DIRECT [facility] Stop: 11/05/19 12:01 Last Admin: 11/05/19 10:55 Dose: 999 mls/hr Documented by: Sodium Bicarbonate 75 meq/ (Dextrose) 1,075 mls @ 125 mls/hr IV DIRECT [facility] Lansoprazole (Prevacid Solutab) 30 mg FEEDTUBE QDAY [facility] Last Admin: 11/05/19 10:23 Dose: 30 mg Documented by: Metoclopramide HCl (Reglan) 10 mg IV Q6H PRN PRN Reason: Nausea And Vomiting Ondansetron HCl (Zofran) 4 mg IV Q3HR PRN PRN Reason: Nausea And Vomiting Last Admin: 11/04/19 20:09 Dose: 4 mg Documented by: Review of Systems All systems: negative Exam - Constitutional Vitals: Temp Pulse Resp BP Pulse Ox 98.0 F 105 H 18 119/61 98 11/05/19 04:00 11/05/19 10:00 11/05/19 10:00 11/05/19 10:00 11/05/19 10:00 General appearance: Present: no acute distress - EENT Eyes: Present: PERRL, EOM intact - Neck Neck: Present: supple, normal ROM - Respiratory Respiratory effort: normal Respiratory: bilateral: CTA Results - Labs CBC & Chem 7: 11/05/19 04:30 11/05/19 04:30 Labs: Abnormal lab results 11/04/19 11/04/19 11/04/19 Range/Units 10:22 12:33 14:21 RBC (3.65-5.03) M/mm3 Hgb (11.8-15.2) gm/dl Hct (35.5-45.6) % MCV (84-94) fl RDW (13.2-15.2) % Sodium (137-145) mmol/L Potassium (3.6-5.0) mmol/L Chloride (98-107) mmol/L BUN (9-20) mg/dL Creatinine (0.8-1.5) mg/dL Glucose (75-100) mg/dL Lactic Acid 10.60 H* 10.00 H* 8.30 H* (0.7-2.0) mmol/L 11/04/19 11/04/19 11/04/19 Range/Units 16:18 19:44 21:21 RBC (3.65-5.03) M/mm3 Hgb (11.8-15.2) gm/dl Hct (35.5-45.6) % MCV (84-94) fl RDW (13.2-15.2) % Sodium (137-145) mmol/L Potassium (3.6-5.0) mmol/L Chloride (98-107) mmol/L BUN (9-20) mg/dL Creatinine (0.8-1.5) mg/dL Glucose (75-100) mg/dL Lactic Acid 9.20 H* 6.40 H* 6.80 H* (0.7-2.0) mmol/L 11/05/19 11/05/19 11/05/19 Range/Units 04:30 04:30 04:30 RBC 3.10 L (3.65-5.03) M/mm3 Hgb 10.1 L (11.8-15.2) gm/dl Hct 30.6 L (35.5-45.6) % MCV 99 H (84-94) fl RDW 17.4 H (13.2-15.2) % Sodium 156 H (137-145) mmol/L Potassium 5.7 H D (3.6-5.0) mmol/L Chloride 118.6 H (98-107) mmol/L BUN 95 H (9-20) mg/dL Creatinine 3.2 H (0.8-1.5) mg/dL Glucose 67 L (75-100) mg/dL Lactic Acid 3.60 H* (0.7-2.0) mmol/L 11/05/19 Range/Units 07:45 RBC (3.65-5.03) M/mm3 Hgb (11.8-15.2) gm/dl Hct (35.5-45.6) % MCV (84-94) fl RDW (13.2-15.2) % Sodium (137-145) mmol/L Potassium (3.6-5.0) mmol/L Chloride (98-107) mmol/L BUN (9-20) mg/dL Creatinine (0.8-1.5) mg/dL Glucose (75-100) mg/dL Lactic Acid 2.70 H* (0.7-2.0) mmol/L Assessment and Plan 79 y/o male with hypotension, likely related to volume depletion given elevated sodium and other comorbid diseases 1. Will given an additional fluid boluses now 2. Renal has started bicarb drip 3. Wean FiO2 to off 4. Levophed off now, if able to stay off for the next 3-4 hours, can move to floor, likely tele. CCT 31 minutes.
[2019-11-05] MEDS ORDERED: SODIUM BICARBONATE 325 MG TAB FEEDTUBE PRN (12:00)
[2019-11-05] MEDS ORDERED: LIPASE 10,500/PROTEASE 25,000/AMYLASE 43,750 (UNITS) DR CAP FEEDTUBE PRN (12:00)
[2019-11-05] MEDS ORDERED: SIMPLE SYRUP 15 ML FEEDTUBE PRN ×2 (12:00)
[2019-11-05] MEDS ORDERED: ALBUTEROL 2.5 MG/3 ML NEBU IH PRN (12:08)
[2019-11-05] MEDS ORDERED: ALBUTEROL 2.5 MG/3 ML NEBU IH ONE (12:20)
[2019-11-05] MEDS: SODIUM BICARBONATE 75 MEQ in DEXTROSE 5% IN WATER 1,000 ML IV SCH ×2 (12:39→22:36)
[2019-11-05] MEDS ORDERED: DEXTROSE 50% IN WATER (25GM) 50 ML SYRINGE IV ONE (12:56)
[2019-11-05 12:58] LABS: Bacteria,Urine 1+ /HPF (Negative); Bilirubin,Urine NEG (Negative); Blood,Urine LG (Negative); Color,Urine Yellow (Yellow); Protein,Urine <15 mg/dL mg/dL (Negative); RBC,Urine < 1.0 /HPF (0.0-6.0); Urobilinogen,Urine < 2.0 mg/dL (<2.0)
--- NOTE | 2019-11-05 13:44 | Consultation ---
History of Present Illness Consult date: 11/05/19 Requesting physician: FROILAN MOHAN Consult reason: elevated troponin History of present illness: The patient is an 79-year-old male from [facility] with a past medical history of HTN, CVA, CKD, dementia, PEG tube in situ. Pt is nonverbal due to advanced dementia and thus HPI is obtained per the chart. Per the chart, pt's daughter Lynn reported that pt has h/o history of CVA with aphasia but was able to walk up until 09/10/2019 when he fell at [facility] assisted living [facility]. Patient stayed in this hospital from 09/10/19 until 10/09/2019 and was discharged to [facility]. During that hospitalization, he had PNA, GIB/coffee ground emesis s/p EGD that showed antral gastritis and moderate dist al esophagitis, PEG placement on 10/03/19. Medics state that they were summoned to care home yesterday for altered mental status. Pt arrived to ED with respiratory difficulty. His blood pressure was 60 systolic. He was given fluid resuscitation and a central line was immediately placed and he was initiated on vasopressors which have since been weaned off. Since admission, pt found to have encephalopathy, hypernatremia, hyperkalemia, dehydration, suspected shock, A/CKD, suspected sepsis secondary to recent pneumonia, severe malnutrition. Pt was noted to have elevated troponin and thus cardiology has been consulted. Past History Past Medical History: hypertension, other (dementia, CVA aphasia) Past Surgical History: No surgical history Social history: no significant social history Medications and Allergies Allergies Allergy/AdvReac Type Severity Reaction Status Date / Time No Known Allergies Allergy Unverified 07/23/13 13:35 Home Medications Medication Instructions Recorded Confirmed Last Taken Type AtorvaSTATin [Lipitor] 40 mg PO QHS 09/09/19 11/04/19 Unknown History Cyanocobalamin [Vitamin B-12] 1,000 mcg IM QMONTH 09/09/19 11/04/19 Unknown History Finasteride [Proscar] 5 mg PO QHS 09/09/19 11/04/19 Unknown History Folic Acid 1 mg PO DAILY 09/09/19 11/04/19 Unknown History Vit-Fe Fumar-FA [ 1 tab PO DAILY 09/09/19 11/04/19 Unknown History Vitamin] allopurinoL [Zyloprim] 300 mg PO QDAY 09/09/19 11/04/19 Unknown History Lansoprazole Solutab [Prevacid 30 mg FEEDTUBE QDAY 30 Days 10/09/19 11/04/19 Unknown Rx Solutab] tab.rapdis Metoprolol Xl [Metoprolol 25 mg PO QDAY #30 tablet 10/09/19 11/04/19 Unknown Rx SUCCINATE ER TAB] Tamsulosin [Flomax] 0.4 mg PO QDAY #30 capsule 10/09/19 11/04/19 Unknown Rx Active Meds: Active Medications Albuterol (Proventil) 2.5 mg IH Q4HRT PRN PRN Reason: Shortness Of Breath Last Admin: 11/05/19 12:21 Dose: 2.5 mg Documented by: Allopurinol (Zyloprim) 300 mg PO QDAY [facility] Last Admin: 11/05/19 10:23 Dose: 300 mg Documented by: Lipase/Protease/Amylase (Pancrejenn Dr 10,500 Unit) 1 each FEEDTUBE PRN PRN PRN Reason: For Clogged Feeding Tube Atorvastatin Calcium (Lipitor) 40 mg PO QHS [facility] Last Admin: 11/04/19 22:45 Dose: Not Given Documented by: Cyanocobalamin (Vitamin B-12) 1,000 mcg IM QMONTH [facility] Last Admin: 11/04/19 23:10 Dose: 1,000 mcg Documented by: Finasteride (Proscar) 5 mg PO QHS [facility] Last Admin: 11/04/19 22:44 Dose: Not Given Documented by: Folic Acid (Folvite) 1 mg PO DAILY [facility] Last Admin: 11/05/19 10:23 Dose: 1 mg Documented by: Norepinephrine (Levophed Drip 4 Mg/Ns 250 Ml) 4 mg in 250 mls @ 7.5 mls/hr IV TITR AYUSH; Protocol Last Titration: 11/05/19 10:31 Dose: 0 mcg/min, 0 mls/hr Documented by: Azithromycin 500 mg/ Sodium (Chloride) 250 mls @ 250 mls/hr IV Q24HR [facility]; Protocol Last Admin: 11/05/19 10:23 Dose: 250 mls/hr Documented by: Ceftriaxone Sodium (Rocephin/Ns 1 Gm/50 Ml) 1 gm in 50 mls @ 100 mls/hr IV Q24HR AYUSH; Protocol Last Admin: 11/05/19 10:23 Dose: 100 mls/hr Documented by: Sodium Bicarbonate 75 meq/ (Dextrose) 1,075 mls @ 125 mls/hr IV DIRECT AYUSH Last Admin: 11/05/19 12:39 Dose: 125 mls/hr Documented by: Lansoprazole (Prevacid Solutab) 30 mg FEEDTUBE QDAY AYUSH Last Admin: 11/05/19 10:23 Dose: 30 mg Documented by: Metoclopramide HCl (Reglan) 10 mg IV Q6H PRN PRN Reason: Nausea And Vomiting Ondansetron HCl (Zofran) 4 mg IV Q3HR PRN PRN Reason: Nausea And Vomiting Last Admin: 11/04/19 20:09 Dose: 4 mg Documented by: Simple Syrup (Simple Syrup) 15 ml FEEDTUBE PRN PRN PRN Reason: Hypoglycemia Simple Syrup (Simple Syrup) 30 ml FEEDTUBE PRN PRN PRN Reason: Hypoglycemia Sodium Bicarbonate (Sodium Bicarbonate) 325 mg FEEDTUBE PRN PRN PRN Reason: For Clogged Feeding Tube Review of Systems ROS unobtainable: due to mental status Physical Examination Vital Signs BP 145/94 11/04/19 08:53 General appearance: no acute distress, cachectic HEENT: Positive: PERRL Cardiac: Positive: Reg Rate and Rhythm, S1/S2 Lungs: Positive: Decreased Breath Sounds Neuro: Positive: Other (nonverbal, moves all extremities and withdraws from pain) Skin: Negative: Rash Extremities: Absent: edema Results 11/05/19 04:30 11/05/19 04:30 CBC 11/05/19 Range/Units 04:30 WBC 5.9 (4.5-11.0) K/mm3 RBC 3.10 L (3.65-5.03) M/mm3 Hgb 10.1 L (11.8-15.2) gm/dl Hct 30.6 L (35.5-45.6) % Plt Count 150 (140-440) K/mm3 Comprehensive Metabolic Panel 11/05/19 Range/Units 04:30 Sodium 156 H (137-145) mmol/L Potassium 5.7 H D (3.6-5.0) mmol/L Chloride 118.6 H (98-107) mmol/L Carbon Dioxide 23 D (22-30) mmol/L BUN 95 H (9-20) mg/dL Creatinine 3.2 H (0.8-1.5) mg/dL Glucose 67 L (75-100) mg/dL Calcium 9.4 (8.4-10.2) mg/dL - Imaging and Cardiology Echo: pending EKG: report reviewed, image reviewed EKG interpretations - Telemetry EKG Rhythm: Sinus Rhythm - EKG Sinus rhythms and dysrhythmias: sinus rhythm Assessment and Plan AMS Acute Metabolic Encephalopathy per primary. Head CT with NAF. Recent PNA / ? sepsis with septic shock / lactic acidosis Blood cultures negative to date. Pt afebrile. WBC WNL. Currently weaned off vasopressors. IVF per primary and critical care. Abx per primary. Acute on chronic renal insufficiency Nephrology following. Hypernatremia Improving. IVF and free water per primary. Hyperkalemia Bicarb gtt initiated per nephrology. NSTEMI Suspect type II. ECG with no acute ischemic changes. Cont to trend Alo and f/u ECG in AM. Obtain echo. H/o CVA Dementia Malnutrition PEG tube in situ. The patient has been seen in conjunction with Dr. Serrano who agrees with the assessment and plan of care.
[2019-11-05] MEDS: FINASTERIDE 5 MG TAB PO SCH (22:39)
[2019-11-06] MEDS: ONDANSETRON 4 MG/2 ML INJ IV PRN (01:10)
[2019-11-06 05:27] LABS: Hematocrit 22.6 % (35.5-45.6); Hemoglobin 7.4 gm/dl (11.8-15.2); Mean Corpuscular HGB Conc 33 % (32-34); Mean Corpuscular Volume 98 fl (84-94); Platelet Count 105 K/mm3 (140-440); Red Blood Count 2.32 M/mm3 (3.65-5.03); Red Cell Distribution Width 17.1 % (13.2-15.2)
[2019-11-06] MEDS: SODIUM BICARBONATE 75 MEQ in DEXTROSE 5% IN WATER 1,000 ML IV SCH (08:24)
--- NOTE | 2019-11-06 08:44 | Progress Note ---
Assessment and Plan Assessment and plan: Patient is a 79 yo man from [facility] with a history of hypertension, CKD 3, Dementia, thrombocytopenia, hypernatremia, BPH, dyslipidemia, CVA with aphasia, who presented with acute onset of AMS They state that they were not informed of the patient's low blood pressure or if he had any recent history of fever. He arrived at this facility with respiratory difficulty. His blood pressure was 60 systolic. He was given fluid resuscitation and a central line was immediately placed. He was able to protect his airway and his pulse oximetry was adequately preserved (95%). He is noted to have a G-tube. He gives no history. Daughter Lynn, who is stated POA gives a history of having history of CVA with aphasia but was able to walk up until 09/10/2019 when he fell at [facility] assisted living [facility]. Patient stayed in this hospital from 09/10/19 until 10/09/2019 and was discharged to [facility]. During that hospitalization, he had PNA, GIB/coffee ground emesis s/p EGD that showed antral gastritis and moderate distal esophagitis, PEG placement on 10/03/19. * pCXR Impression: Resolving bilateral bronchopneumonia * CT head without contrast: No acute abnormality, extensive chronic ischemic changes and cerebral atrophy Acute Metabolic Encephalopathy with sodium level of 160, needing inpatient admission to address Severe hyponatremia: more free water needed, monitor bmp daily, consulted Nephrology Hypovolemic shock s/p right TLC femoral line: off Vasopressor, continue IVF, shock resolved ARF/CKD 3 due to ATN: consulted Renal, treated NSS but sodium level high. Acute hypoxic respiratory failure from prior pneumonia: continue iv abx Sepsis pneumonia bilateral: additional abx Daughter Katharina adamant about full code per patient's advance directive Suspected Malnutrition, severe: consulted Pet Sitting Hypoglycemia: treat with dextrose poor prognosis, transfer out of ICU Disposition: continue inpatient care, still with severe electrolyte imbalance, Nephrology is following, treat the hypoglycemia also. History Interval history: Patient seen and examained, follow up hypotenison, off vasopressor. 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 Physical - Physical exam Narrative exam: Gen: cachetic, chronic disable, moderate increase accessory muscles, moaning, NRB 100% o2 mask applied HEENT: pentecostal muscle wasting, NCAT,> resist eyes being examined, OP dry Neck: supple, no adenopathy, no thyromegaly, no JVD CVS/Heart: RRR, normal S1S2, pulses present bilaterally Chest/Lungs: diminished and coarse bs bilaterally, Symmetrical chest expansion, reduced air entry bilaterally GI/Abdomen: soft, NTND, good bowel sounds, no guarding or rebound /Bladder: no suprapubic tenderness, no CVA or paraspinal tenderness Extermity/Skin: atrophy tenar and hypotenar muscles, poor skin intergrity MSK: FROM x 3 Neuro: CN 2-12 grossly intact except speech, doesnt follow commands Psych: anxious - Constitutional Vitals: Temp Pulse Resp BP Pulse Ox 98.0 F 117 H 18 109/54 89 11/06/19 04:55 11/06/19 04:30 11/06/19 04:55 11/06/19 04:55 11/06/19 00:29 General appearance: Present: no acute distress, cachectic Results - Labs CBC & Chem 7: 11/06/19 04:55 11/06/19 04:55 Labs: Laboratory Last Values WBC 5.3 K/mm3 (4.5-11.0) 11/06/19 04:55 RBC 2.32 M/mm3 (3.65-5.03) L 11/06/19 04:55 Hgb 7.4 gm/dl (11.8-15.2) L 11/06/19 04:55 Hct 22.6 % (35.5-45.6) L D 11/06/19 04:55 MCV 98 fl (84-94) H 11/06/19 04:55 MCH 32 pg (28-32) 11/06/19 04:55 MCHC 33 % (32-34) 11/06/19 04:55 RDW 17.1 % (13.2-15.2) H 11/06/19 04:55 Plt Count 105 K/mm3 (140-440) L 11/06/19 04:55 Add Manual Diff Complete 11/04/19 09:10 Total Counted 100 11/04/19 09:10 Seg Neuts % (Manual) 77.0 % (40.0-70.0) H 11/04/19 09:10 Band Neutrophils % 9.0 % 11/04/19 09:10 Lymphocytes % (Manual) 8.0 % (13.4-35.0) L 11/04/19 09:10 Reactive Lymphs % (Man) 0 % 11/04/19 09:10 Monocytes % (Manual) 3.0 % (0.0-7.3) 11/04/19 09:10 Eosinophils % (Manual) 2.0 % (0.0-4.3) 11/04/19 09:10 Basophils % (Manual) 0 % (0.0-1.8) 11/04/19 09:10 Metamyelocytes % 1.0 % 11/04/19 09:10 Myelocytes % 0 % 11/04/19 09:10 Promyelocytes % 0 % 11/04/19 09:10 Blast Cells % 0 % 11/04/19 09:10 Nucleated RBC % Not Reportable 11/04/19 09:10 Seg Neutrophils # Man 5.7 K/mm3 (1.8-7.7) 11/04/19 09:10 Band Neutrophils # 0.7 K/mm3 11/04/19 09:10 Lymphocytes # (Manual) 0.6 K/mm3 (1.2-5.4) L 11/04/19 09:10 Abs React Lymphs (Man) 0.0 K/mm3 11/04/19 09:10 Monocytes # (Manual) 0.2 K/mm3 (0.0-0.8) 11/04/19 09:10 Eosinophils # (Manual) 0.1 K/mm3 (0.0-0.4) 11/04/19 09:10 Basophils # (Manual) 0.0 K/mm3 (0.0-0.1) 11/04/19 09:10 Metamyelocytes # 0.1 K/mm3 11/04/19 09:10 Myelocytes # 0.0 K/mm3 11/04/19 09:10 Promyelocytes # 0.0 K/mm3 11/04/19 09:10 Blast Cells # 0.0 K/mm3 11/04/19 09:10 WBC Morphology Not Reportable 11/04/19 09:10 Hypersegmented Neuts Not Reportable 11/04/19 09:10 Hyposegmented Neuts Not Reportable 11/04/19 09:10 Hypogranular Neuts Not Reportable 11/04/19 09:10 Smudge Cells Not Reportable 11/04/19 09:10 Toxic Granulation Not Reportable 11/04/19 09:10 Toxic Vacuolation Not Reportable 11/04/19 09:10 Dohle Bodies Not Reportable 11/04/19 09:10 Pelger-Huet Anomaly Not Reportable 11/04/19 09:10 Kp Rods Not Reportable 11/04/19 09:10 Platelet Estimate Consistent w auto 11/04/19 09:10 Clumped Platelets Not Reportable 11/04/19 09:10 Plt Clumps, EDTA Not Reportable 11/04/19 09:10 Large Platelets Not Reportable 11/04/19 09:10 Giant Platelets Not Reportable 11/04/19 09:10 Platelet Satelliting Not Reportable 11/04/19 09:10 Plt Morphology Comment Not Reportable 11/04/19 09:10 RBC Morphology Not Reportable 11/04/19 09:10 Dimorphic RBCs Not Reportable 11/04/19 09:10 Polychromasia Not Reportable 11/04/19 09:10 Hypochromasia Not Reportable 11/04/19 09:10 Poikilocytosis Not Reportable 11/04/19 09:10 Anisocytosis Few 11/04/19 09:10 Microcytosis Not Reportable 11/04/19 09:10 Macrocytosis Not Reportable 11/04/19 09:10 Spherocytes Not Reportable 11/04/19 09:10 Pappenheimer Bodies Not Reportable 11/04/19 09:10 Sickle Cells Not Reportable 11/04/19 09:10 Target Cells Not Reportable 11/04/19 09:10 Tear Drop Cells Not Reportable 11/04/19 09:10 Ovalocytes Not Reportable 11/04/19 09:10 Helmet Cells Not Reportable 11/04/19 09:10 [place] Bodies Not Reportable 11/04/19 09:10 [place] Rings Not Reportable 11/04/19 09:10 [place] Cells Not Reportable 11/04/19 09:10 Bite Cells Not Reportable 11/04/19 09:10 Crenated Cell Not Reportable 11/04/19 09:10 Elliptocytes Not Reportable 11/04/19 09:10 Acanthocytes (Spur) Not Reportable 11/04/19 09:10 Rouleaux Not Reportable 11/04/19 09:10 Hemoglobin C Crystals Not Reportable 11/04/19 09:10 Schistocytes Not Reportable 11/04/19 09:10 Malaria parasites Not Reportable 11/04/19 09:10 Warren Bodies Not Reportable 11/04/19 09:10 Hem Pathologist Commnt No 11/04/19 09:10 PT 15.9 Sec. (12.2-14.9) H 11/04/19 09:10 INR 1.25 (0.87-1.13) H 11/04/19 09:10 APTT 27.7 Sec. (24.2-36.6) 11/04/19 09:10 ABG pH 7.351 pH Units (7.350-7.450) 11/04/19 10:20 ABG pCO2 31.4 mm Hg 11/04/19 10:20 ABG pO2 77.6 mm Hg (80.0-90.0) L 11/04/19 10:20 ABG HCO3 17.0 mmol/L (20.0-26.0) L 11/04/19 10:20 ABG O2 Saturation 95.1 % (95.0-99.0) 11/04/19 10:20 ABG O2 Content 12.7 (0.0-44) 11/04/19 10:20 ABG Base Excess -7.6 mmol/L (-2.0-3.0) L 11/04/19 10:20 ABG Hemoglobin 9.7 gm/dl (14.0-18.0) L 11/04/19 10:20 ABG Carboxyhemoglobin 1.7 % (0.0-5.0) 11/04/19 10:20 ABG Methemoglobin 0.6 % (0.0-1.5) 11/04/19 10:20 Oxyhemoglobin 92.9 % (95.0-99.0) L 11/04/19 10:20 FiO2 10 % 11/04/19 10:20 Sodium 153 mmol/L (137-145) H 11/06/19 04:55 Potassium 4.0 mmol/L (3.6-5.0) D 11/06/19 04:55 Chloride 114.5 mmol/L (98-107) H 11/06/19 04:55 Carbon Dioxide 25 mmol/L (22-30) 11/06/19 04:55 Anion Gap 18 mmol/L 11/06/19 04:55 BUN 82 mg/dL (9-20) H 11/06/19 04:55 Creatinine 2.8 mg/dL (0.8-1.5) H 11/06/19 04:55 Estimated GFR 27 ml/min 11/06/19 04:55 BUN/Creatinine Ratio 29 % 11/06/19 04:55 Glucose 126 mg/dL (75-100) H 11/06/19 04:55 Lactic Acid 2.70 mmol/L (0.7-2.0) H* 11/05/19 07:45 Calcium 9.0 mg/dL (8.4-10.2) 11/06/19 04:55 Magnesium 2.30 mg/dL (1.7-2.3) 11/04/19 09:10 Total Bilirubin 0.40 mg/dL (0.1-1.2) 11/04/19 09:10 Direct Bilirubin < 0.2 mg/dL (0-0.2) 11/04/19 09:10 Indirect Bilirubin 0.2 mg/dL 11/04/19 09:10 AST 67 units/L (5-40) H 11/04/19 09:10 ALT 71 units/L (7-56) H 11/04/19 09:10 Alkaline Phosphatase 90 units/L (35-129) 11/04/19 09:10 Total Creatine Kinase 815 units/L (55-170) H 11/04/19 09:10 CK-MB (CK-2) 14.7 ng/mL (0.0-4.0) H 11/04/19 09:10 CK-MB (CK-2) Rel Index 1.8 (0-4) 11/04/19 09:10 Troponin T 0.198 ng/mL (0.00-0.029) H* 11/06/19 00:52 NT-Pro-B Natriuret Pep 554.4 pg/mL (0-900) 11/04/19 09:10 Total Protein 7.6 g/dL (6.3-8.2) 11/04/19 09:10 Albumin 2.9 g/dL (3.9-5) L 11/04/19 09:10 Albumin/Globulin Ratio 0.6 % 11/04/19 09:10 Triglycerides 56 mg/dL (2-149) 11/04/19 09:10 Cholesterol 96 mg/dL (50-199) 11/04/19 09:10 LDL Cholesterol Direct 59 mg/dL (50-130) 11/04/19 09:10 HDL Cholesterol 38 mg/dL (40-59) L 11/04/19 09:10 Cholesterol/HDL Ratio 2.52 % 11/04/19 09:10 Urine Color Yellow (Yellow) 11/05/19 09:26 Urine Turbidity Clear (Clear) 11/05/19 09:26 Urine pH 8.0 (5.0-7.0) H 11/05/19 09:26 Ur Specific Mcbee 1.011 (1.003-1.030) 11/05/19 09:26 Urine Protein <15 mg/dl mg/dL (Negative) 11/05/19 09:26 Urine Glucose (UA) Neg mg/dL (Negative) 11/05/19 09:26 Urine Ketones Neg mg/dL (Negative) 11/05/19 09:26 Urine Blood Lg (Negative) 11/05/19 09:26 Urine Nitrite Neg (Negative) 11/05/19 09:26 Urine Bilirubin Neg (Negative) 11/05/19 09:26 Urine Urobilinogen < 2.0 mg/dL (<2.0) 11/05/19 09:26 Ur Leukocyte Esterase Neg (Negative) 11/05/19 09:26 Urine WBC (Auto) 1.0 /HPF (0.0-6.0) 11/05/19 09:26 Urine RBC (Auto) < 1.0 /HPF (0.0-6.0) 11/05/19 09:26 U Epithel Cells (Auto) < 1.0 /HPF (0-13.0) 11/05/19 09:26 Urine Bacteria (Auto) 1+ /HPF (Negative) 11/05/19 09:26 Active Medications - Current Medications Current Medications: Generic Name Dose Route Start Last Admin Trade Name Freq PRN Reason Stop Dose Admin Albuterol 2.5 mg 11/05/19 12:08 11/05/19 12:21 Proventil IH 2.5 mg Q4HRT PRN Administration Shortness Of Breath Allopurinol 300 mg 11/05/19 10:00 11/05/19 10:23 Zyloprim PO 300 mg QDAY AYUSH Administration Lipase/Protease/Amylase 1 each 11/05/19 12:[address] 10,500 Unit FEEDTUBE PRN PRN For Clogged Feeding Tube Atorvastatin Calcium 40 mg 11/04/19 22:00 11/05/19 22:39 Lipitor PO 40 mg QHS AYUSH Administration Cyanocobalamin 1,000 mcg 11/04/19 19:00 11/04/19 23:10 Vitamin B-12 IM 1,000 mcg QMONTH AYUSH Administration Finasteride 5 mg 11/04/19 22:00 11/05/19 22:39 Proscar PO 5 mg QHS AYUSH Administration Folic Acid 1 mg 11/05/19 10:00 11/05/19 10:23 Folvite PO 1 mg DAILY AYUSH Administration Norepinephrine 4 mg in 250 mls @ 7.5 mls/hr 11/04/19 11:00 11/05/19 10:31 Levophed Drip 4 Mg/Ns 250 Ml IV 0 mcg/min TITR AYUSH 0 mls/hr Titration Protocol 2 MCG/MIN Azithromycin 500 mg/ Sodium 250 mls @ 250 mls/hr 11/04/19 19:00 11/05/19 10:23 Chloride IV 250 mls/hr Q24HR AYUSH Administration Protocol Ceftriaxone Sodium 1 gm in 50 mls @ 100 mls/hr 11/04/19 19:00 11/05/19 10:23 Rocephin/Ns 1 Gm/50 Ml IV 100 mls/hr Q24HR AYUSH Administration Protocol Sodium Bicarbonate 75 meq/ 1,075 mls @ 125 mls/hr 11/05/19 11:00 11/06/19 08:24 Dextrose IV 125 mls/hr DIRECT AYUSH Administration Lansoprazole 30 mg 11/05/19 10:00 11/05/19 10:23 Prevacid Solutab FEEDTUBE 30 mg QDAY AYUSH Administration Metoclopramide HCl 10 mg 11/04/19 19:58 Reglan IV Q6H PRN Nausea And Vomiting Ondansetron HCl 4 mg 11/04/19 19:59 11/06/19 01:10 Zofran IV 4 mg Q3HR PRN Administration Nausea And Vomiting Simple Syrup 15 ml 11/05/19 12:00 Simple Syrup FEEDTUBE PRN PRN Hypoglycemia Simple Syrup 30 ml 11/05/19 12:00 Simple Syrup FEEDTUBE PRN PRN Hypoglycemia Sodium Bicarbonate 325 mg 11/05/19 12:00 Sodium Bicarbonate FEEDTUBE PRN PRN For Clogged Feeding Tube Nutrition/Malnutrition Assess - Dietary Evaluation Nutrition/Malnutrition Findings: Nutrition Notes Start: 11/05/19 08:23 Freq: Status: Active Protocol: Document 11/05/19 08:23 (Rec: 11/05/19 09:02 [id number]) Co-Sign 11/05/19 08:23 LP Nutrition Notes Need for Assessment generated from: MD Order Initial or Follow up Assessment Current Diagnosis CKD(stage I-IV),Hypertension, Stroke Other Pertinent Diagnosis AMS, pneu, acute encephalopathy, dyslipidemia, septic shock, hypernatremia Current Diet No diet Labs/Tests Na 156 K 5.7 BUN 95 Cr 3.2 BG 67 Pertinent Medications Pressors Nacl at 75 ml/hr Height 5 ft 7 in Weight 96.434 kg Athena Body Weight (kg) 67.27 BMI 33.3 Weight Status Obese Subjective/Other Information MD consult for TF and malnutrition. RN reports pt has not vomited since ED. Pt has PEG placed. TF order placed. Initiate Nepro 1.8 at 35 ml/hr. Burn Absent Trauma Absent GI Symptoms None Difficulty In Swallowing Current % PO Negligible Minimum of two criteria No Reduced Family Practitioner Strength Measurably Reduced (severe) #1 Nutrition Diagnosis Inadequate oral intake Etiology Stroke, chronic disease As Evidenced by Signs and Symptoms Failed swallow eval Is patient on ventilator? No Is Patient Ambulatory and/or Out of Bed No REE-([facility]-confined to bed) 1966.080 Kcal/Kg value to use for calculation 15 Approximate Energy Requirements Using 1447 kcal/Kg Calculation Used for Recommendations Kcal/kg Additional Notes Pro: 49-65 g (0.6-0.8 g/kg AdjBW 82 kg) Fluid 1ml/kcal or per MD Nutrition Intervention Change Diet Order: TF Nutrition Support: Nepro 1.8 at 35 ml/hr with 250 ml water flush q4h until hypernatremia resolves. Once hypernatremia resolved 150 ml water flush q4h. Kcal 1,512 Protein (gm) 68 Fluid (mL) 610 Goal #1 Initiate TF Goal #2 Meet 75% of protein and energy needs via TF Anticipated Discharge Needs: cannot determine at this time Follow-Up By: 11/07/19 Additional Comments FU for TF initiation and TF tolerance
--- NOTE | 2019-11-06 10:36 | Progress Note ---
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 Absent: scleral icterus - ENT ENT exam: Present: mucous membranes dry - Neck Neck exam: Present: normal inspection - Respiratory Respiratory exam: Present: rhonchi, accessory muscle use, decreased breath sounds - Cardiovascular Cardiovascular Exam: Present: regular rate, normal rhythm. Absent: systolic murmur, diastolic murmur, rubs, gallop - GI/Abdominal GI/Abdominal exam: Present: soft, other (G tube site is clean with good hygiene). Absent: distended, tenderness, guarding, rebound, rigid - Extremities Exam Extremities exam: Present: normal inspection - Neurological Exam Neurological exam: Present: CN II-XII intact (as testable). Absent: motor sensory deficit - Psychiatric Psychiatric exam: Present: flat affect - Skin Skin exam: Present: warm, dry, intact, normal color. Absent: rash - Vital Signs Vital signs: Vital Signs - 12hr 11/05/19 11/06/19 11/06/19 23:52 00:29 04:30 Temperature 98.4 F Pulse Rate 123 H 120 H 117 H Respiratory 18 Rate Blood Pressure 132/70 O2 Sat by Pulse 89 Oximetry 11/06/19 11/06/19 04:55 08:55 Temperature 98.0 F 99.4 F Pulse Rate 112 H Respiratory 18 18 Rate Blood Pressure 109/54 97/53 O2 Sat by Pulse 99 Oximetry - Lab 11/06/19 04:55 11/06/19 04:55 Most recent lab results ABG pH 7.351 pH Units (7.350-7.450) 11/04/19 10:20 ABG pCO2 31.4 mm Hg 11/04/19 10:20 ABG pO2 77.6 mm Hg (80.0-90.0) L 11/04/19 10:20 ABG HCO3 17.0 mmol/L (20.0-26.0) L 11/04/19 10:20 ABG O2 Saturation 95.1 % (95.0-99.0) 11/04/19 10:20 Calcium 9.0 mg/dL (8.4-10.2) 11/06/19 04:55 Magnesium 2.30 mg/dL (1.7-2.3) 11/04/19 09:10 Medications & Allergies - Medications Allergies/Adverse Reactions: Allergies No Known Allergies Allergy (Unverified 07/23/13 13:35) Home Medications: Home Medications Medication Instructions Recorded Confirmed Last Taken Type AtorvaSTATin [Lipitor] 40 mg PO QHS 09/09/19 11/04/19 Unknown History Cyanocobalamin [Vitamin B-12] 1,000 mcg IM QMONTH 09/09/19 11/04/19 Unknown History Finasteride [Proscar] 5 mg PO QHS 09/09/19 11/04/19 Unknown History Folic Acid 1 mg PO DAILY 09/09/19 11/04/19 Unknown History Vit-Fe Fumar-FA [ 1 tab PO DAILY 09/09/19 11/04/19 Unknown History Vitamin] allopurinoL [Zyloprim] 300 mg PO QDAY 09/09/19 11/04/19 Unknown History Lansoprazole Solutab [Prevacid 30 mg FEEDTUBE QDAY 30 Days 10/09/19 11/04/19 Unknown Rx Solutab] tab.rapdis Metoprolol Xl [Metoprolol 25 mg PO QDAY #30 tablet 10/09/19 11/04/19 Unknown Rx SUCCINATE ER TAB] Tamsulosin [Flomax] 0.4 mg PO QDAY #30 capsule 10/09/19 11/04/19 Unknown Rx Active Medications: Generic Name Dose Route Start Last Admin Trade Name Freq PRN Reason Stop Dose Admin Albuterol 2.5 mg 11/05/19 12:08 11/05/19 12:21 Proventil IH 2.5 mg Q4HRT PRN Administration Shortness Of Breath Allopurinol 300 mg 11/05/19 10:00 11/05/19 10:23 Zyloprim PO 300 mg QDAY AYUSH Administration Lipase/Protease/Amylase 1 each 11/05/19 12:[address] 10,500 Unit FEEDTUBE PRN PRN For Clogged Feeding Tube Atorvastatin Calcium 40 mg 11/04/19 22:00 11/05/19 22:39 Lipitor PO 40 mg QHS AYUSH Administration Cyanocobalamin 1,000 mcg 11/04/19 19:00 11/04/19 23:10 Vitamin B-12 IM 1,000 mcg QMONTH AYUSH Administration Finasteride 5 mg 11/04/19 22:00 11/05/19 22:39 Proscar PO 5 mg QHS AYUSH Administration Folic Acid 1 mg 11/05/19 10:00 11/05/19 10:23 Folvite PO 1 mg DAILY AYUSH Administration Norepinephrine 4 mg in 250 mls @ 7.5 mls/hr 11/04/19 11:00 11/05/19 10:31 Levophed Drip 4 Mg/Ns 250 Ml IV 0 mcg/min TITR AYUSH 0 mls/hr Titration Protocol 2 MCG/MIN Azithromycin 500 mg/ Sodium 250 mls @ 250 mls/hr 11/04/19 19:00 11/05/19 10:23 Chloride IV 250 mls/hr Q24HR AYUSH Administration Protocol Ceftriaxone Sodium 1 gm in 50 mls @ 100 mls/hr 11/04/19 19:00 11/05/19 10:23 Rocephin/Ns 1 Gm/50 Ml IV 100 mls/hr Q24HR AYUSH Administration Protocol Sodium Bicarbonate 75 meq/ 1,075 mls @ 125 mls/hr 11/05/19 11:00 11/06/19 08:24 Dextrose IV 125 mls/hr DIRECT AYUSH Administration Lansoprazole 30 mg 11/05/19 10:00 11/05/19 10:23 Prevacid Solutab FEEDTUBE 30 mg QDAY AYUSH Administration Metoclopramide HCl 10 mg 11/04/19 19:58 Reglan IV Q6H PRN Nausea And Vomiting Ondansetron HCl 4 mg 11/04/19 19:59 11/06/19 01:10 Zofran IV 4 mg Q3HR PRN Administration Nausea And Vomiting Simple Syrup 15 ml 11/05/19 12:00 Simple Syrup FEEDTUBE PRN PRN Hypoglycemia Simple Syrup 30 ml 11/05/19 12:00 Simple Syrup FEEDTUBE PRN PRN Hypoglycemia Sodium Bicarbonate 325 mg 11/05/19 12:00 Sodium Bicarbonate FEEDTUBE PRN PRN For Clogged Feeding Tube
[2019-11-06] MEDS: cefTRIAXone/NS 1 GM/50 ML 1 GM/50 ML BAG IV SCH (10:42)
[2019-11-06] MEDS: allopurinoL 300 MG TAB PO SCH (10:42)
[2019-11-06] MEDS: FOLIC ACID 1 MG TAB PO SCH (10:42)
[2019-11-06] MEDS: AZITHROMYCIN 500 MG in SODIUM CHLORIDE 0.9% 250ML 250 ML IV SCH (10:42)
[2019-11-06] MEDS: LANSOPRAZOLE 30 MG SOLUTAB FEEDTUBE SCH (10:42)
[2019-11-06] MEDS ORDERED: D5W/0.45% NACL 1,000 ML IV SCH (11:00)
[2019-11-06] MEDS ORDERED: DEXTROSE 5% IN WATER 1,000 ML IV SCH (11:00)
--- NOTE | 2019-11-06 11:37 | Event Note ---
Date: 11/06/19 Successful transfer out of the unit with no pulmonary complications. BP is stable. At this time from a critical care standpoint, stable, will sign off.
--- NOTE | 2019-11-06 11:54 | Progress Note ---
Assessment and Plan AMS Acute Metabolic Encephalopathy per primary. Head CT with NAF. Recent PNA / ? sepsis with septic shock / lactic acidosis Blood cultures negative to date. Pt afebrile. WBC WNL. Currently weaned off vasopressors. IVF per primary and critical care. Abx per primary. Acute on chronic renal insufficiency Nephrology following. Hypernatremia Improving. IVF and free water per primary. Hyperkalemia Bicarb gtt initiated per nephrology. NSTEMI Suspect type II. ECG with no acute ischemic changes. Await echo. H/o CVA Dementia Malnutrition PEG tube in situ. The patient has been seen in conjunction with Dr. Serrano who agrees with the assessment and plan of care. Subjective Date of service: 11/06/19 Principal diagnosis: chris on ckd Interval history: pt resting in bed, nonverbal, no apparent distress. daughter at bedside. in ST on tele HR 110s - 115. Objective Last Vital Signs Temp 99.4 F 11/06/19 08:55 Pulse 112 H 11/06/19 08:55 Resp 18 11/06/19 08:55 BP 97/53 11/06/19 08:55 Pulse Ox 99 11/06/19 08:55 - Physical Examination General: No Apparent Distress, Other (withdrawn, nonverbal) HEENT: Positive: PERRL Cardiac: Positive: Regular Rhythm, S1/S2 Lungs: Positive: Decreased Breath Sounds Neuro: Positive: Other (nonverbal, moves all extremities and withdraws from pain) Skin: Negative: Rash Extremities: Absent: edema - Labs and Meds CBC 11/06/19 Range/Units 04:55 WBC 5.3 (4.5-11.0) K/mm3 RBC 2.32 L (3.65-5.03) M/mm3 Hgb 7.4 L (11.8-15.2) gm/dl Hct 22.6 L D (35.5-45.6) % Plt Count 105 L (140-440) K/mm3 Comprehensive Metabolic Panel 11/06/19 Range/Units 04:55 Sodium 153 H (137-145) mmol/L Potassium 4.0 D (3.6-5.0) mmol/L Chloride 114.5 H (98-107) mmol/L Carbon Dioxide 25 (22-30) mmol/L BUN 82 H (9-20) mg/dL Creatinine 2.8 H (0.8-1.5) mg/dL Glucose 126 H (75-100) mg/dL Calcium 9.0 (8.4-10.2) mg/dL - Imaging and Cardiology EKG: report reviewed, image reviewed Echo: pending - Telemetry EKG Rhythm: Sinus Rhythm - EKG Sinus rhythms and dysrhythmias: sinus rhythm
[2019-11-06 14:21] LABS: Hematocrit 21.2 % (35.5-45.6); Hemoglobin 7.1 gm/dl (11.8-15.2); Mean Corpuscular HGB Conc 33 % (32-34); Mean Corpuscular Volume 97 fl (84-94); Red Blood Count 2.18 M/mm3 (3.65-5.03); Red Cell Distribution Width 17.2 % (13.2-15.2)
[2019-11-06 14:22] LABS: Platelet Count 93 K/mm3 (140-440)
[2019-11-06] MEDS ORDERED: SODIUM CHLORIDE 0.9% 500 ML 500 ML IV ONE (20:31)
--- NOTE | 2019-11-06 20:37 | Progress Note ---
Assessment and Plan Assessment and plan: Patient is a 79 yo man from [facility] with a history of hypertension, CKD 3, Dementia, thrombocytopenia, hypernatremia, BPH, dyslipidemia, CVA with aphasia, who presented with acute onset of AMS They state that they were not informed of the patient's low blood pressure or if he had any recent history of fever. He arrived at this facility with respiratory difficulty. His blood pressure was 60 systolic. He was given fluid resuscitation and a central line was immediately placed. He was able to protect his airway and his pulse oximetry was adequately preserved (95%). He is noted to have a G-tube. He gives no history. Daughter Lynn, who is stated POA gives a history of having history of CVA with aphasia but was able to walk up until 09/10/2019 when [facility]. Patient stayed in this hospital from 09/10/19 until 10/09/2019 and was discharged to [facility]. During that hospitalization, he had PNA, GIB/coffee ground emesis s/p EGD that showed antral gastritis and moderate distal esophagitis, PEG placement on 10/03/19. * pCXR Impression: Resolving bilateral bronchopneumonia * CT head without contrast: No acute abnormality, extensive chronic ischemic changes and cerebral atrophy Acute anemia with precipitous drop in H/H, tachycardia and borderline hypotension throughout day: get FOBT, hu CT abd/pelvis/chest, consult GI, transfuse 1 unit Acute Metabolic Encephalopathy with sodium level of 160, needing inpatient admission to address Severe hyponatremia: more free water needed, monitor bmp daily, consulted Nephrology Hypovolemic shock s/p right TLC femoral line: off Vasopressor, continue IVF, shock resolved ARF/CKD 3 due to ATN: consulted Renal, treated NSS but sodium level high. Acute hypoxic respiratory failure from prior pneumonia: continue iv abx Sepsis pneumonia bilateral: additional abx Daughter Katharina adamant about full code per patient's advance directive Suspected Malnutrition, severe: consulted Planting Supervisor Hypoglycemia: treated with dextrose, now resolved poor prognosis, transferred out of ICU 11/05/19 Disposition: continue inpatient care, now borderline hypotensive with precipitous drop in H/H will transfuse and get CT scan, FOBT transfuse 1 unit of PRBC, then remove right TLC femoral line in AM CT abd/pelvis/chest without contrast due to ARF CCT 34 min History Interval history: Patient seen and examained, follow up hypotenison, off vasopressor. 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 Physical - Physical exam Narrative exam: Gen: cachetic, chronic disable, moderate increase accessory muscles, moaning, NRB 100% o2 mask applied HEENT: sabianism muscle wasting, NCAT,> resist eyes being examined, OP dry Neck: supple, no adenopathy, no thyromegaly, no JVD CVS/Heart: RRR, normal S1S2, pulses present bilaterally Chest/Lungs: diminished and coarse bs bilaterally, Symmetrical chest expansion, reduced air entry bilaterally GI/Abdomen: soft, NTND, good bowel sounds, no guarding or rebound /Bladder: no suprapubic tenderness, no CVA or paraspinal tenderness Extermity/Skin: atrophy tenar and hypotenar muscles, poor skin intergrity MSK: FROM x 3 Neuro: CN 2-12 grossly intact except speech, doesnt follow commands Psych: anxious - Constitutional Vitals: Temp Pulse Resp BP Pulse Ox 98.2 F 78 94 H 100/68 97 11/06/19 20:27 11/06/19 20:27 11/06/19 20:27 11/06/19 20:27 11/06/19 17:59 General appearance: Present: no acute distress, cachectic Results - Labs CBC & Chem 7: 11/06/19 13:32 11/06/19 04:55 Labs: Laboratory Last Values WBC 6.2 K/mm3 (4.5-11.0) 11/06/19 13:32 RBC 2.18 M/mm3 (3.65-5.03) L 11/06/19 13:32 Hgb 7.1 gm/dl (11.8-15.2) L 11/06/19 13:32 Hct 21.2 % (35.5-45.6) L 11/06/19 13:32 MCV 97 fl (84-94) H 11/06/19 13:32 MCH 32 pg (28-32) 11/06/19 13:32 MCHC 33 % (32-34) 11/06/19 13:32 RDW 17.2 % (13.2-15.2) H 11/06/19 13:32 Plt Count 93 K/mm3 (140-440) L 11/06/19 13:32 Add Manual Diff Complete 11/04/19 09:10 Total Counted 100 11/04/19 09:10 Seg Neuts % (Manual) 77.0 % (40.0-70.0) H 11/04/19 09:10 Band Neutrophils % 9.0 % 11/04/19 09:10 Lymphocytes % (Manual) 8.0 % (13.4-35.0) L 11/04/19 09:10 Reactive Lymphs % (Man) 0 % 11/04/19 09:10 Monocytes % (Manual) 3.0 % (0.0-7.3) 11/04/19 09:10 Eosinophils % (Manual) 2.0 % (0.0-4.3) 11/04/19 09:10 Basophils % (Manual) 0 % (0.0-1.8) 11/04/19 09:10 Metamyelocytes % 1.0 % 11/04/19 09:10 Myelocytes % 0 % 11/04/19 09:10 Promyelocytes % 0 % 11/04/19 09:10 Blast Cells % 0 % 11/04/19 09:10 Nucleated RBC % Not Reportable 11/04/19 09:10 Seg Neutrophils # Man 5.7 K/mm3 (1.8-7.7) 11/04/19 09:10 Band Neutrophils # 0.7 K/mm3 11/04/19 09:10 Lymphocytes # (Manual) 0.6 K/mm3 (1.2-5.4) L 11/04/19 09:10 Abs React Lymphs (Man) 0.0 K/mm3 11/04/19 09:10 Monocytes # (Manual) 0.2 K/mm3 (0.0-0.8) 11/04/19 09:10 Eosinophils # (Manual) 0.1 K/mm3 (0.0-0.4) 11/04/19 09:10 Basophils # (Manual) 0.0 K/mm3 (0.0-0.1) 11/04/19 09:10 Metamyelocytes # 0.1 K/mm3 11/04/19 09:10 Myelocytes # 0.0 K/mm3 11/04/19 09:10 Promyelocytes # 0.0 K/mm3 11/04/19 09:10 Blast Cells # 0.0 K/mm3 11/04/19 09:10 WBC Morphology Not Reportable 11/04/19 09:10 Hypersegmented Neuts Not Reportable 11/04/19 09:10 Hyposegmented Neuts Not Reportable 11/04/19 09:10 Hypogranular Neuts Not Reportable 11/04/19 09:10 Smudge Cells Not Reportable 11/04/19 09:10 Toxic Granulation Not Reportable 11/04/19 09:10 Toxic Vacuolation Not Reportable 11/04/19 09:10 Dohle Bodies Not Reportable 11/04/19 09:10 Pelger-Huet Anomaly Not Reportable 11/04/19 09:10 Kp Rods Not Reportable 11/04/19 09:10 Platelet Estimate Consistent w auto 11/04/19 09:10 Clumped Platelets Not Reportable 11/04/19 09:10 Plt Clumps, EDTA Not Reportable 11/04/19 09:10 Large Platelets Not Reportable 11/04/19 09:10 Giant Platelets Not Reportable 11/04/19 09:10 Platelet Satelliting Not Reportable 11/04/19 09:10 Plt Morphology Comment Not Reportable 11/04/19 09:10 RBC Morphology Not Reportable 11/04/19 09:10 Dimorphic RBCs Not Reportable 11/04/19 09:10 Polychromasia Not Reportable 11/04/19 09:10 Hypochromasia Not Reportable 11/04/19 09:10 Poikilocytosis Not Reportable 11/04/19 09:10 Anisocytosis Few 11/04/19 09:10 Microcytosis Not Reportable 11/04/19 09:10 Macrocytosis Not Reportable 11/04/19 09:10 Spherocytes Not Reportable 11/04/19 09:10 Pappenheimer Bodies Not Reportable 11/04/19 09:10 Sickle Cells Not Reportable 11/04/19 09:10 Target Cells Not Reportable 11/04/19 09:10 Tear Drop Cells Not Reportable 11/04/19 09:10 Ovalocytes Not Reportable 11/04/19 09:10 Helmet Cells Not Reportable 11/04/19 09:10 [place] Bodies Not Reportable 11/04/19 09:10 [place] Rings Not Reportable 11/04/19 09:10 Saman Cells Not Reportable 11/04/19 09:10 Bite Cells Not Reportable 11/04/19 09:10 Crenated Cell Not Reportable 11/04/19 09:10 Elliptocytes Not Reportable 11/04/19 09:10 Acanthocytes (Spur) Not Reportable 11/04/19 09:10 Rouleaux Not Reportable 11/04/19 09:10 Hemoglobin C Crystals Not Reportable 11/04/19 09:10 Schistocytes Not Reportable 11/04/19 09:10 Malaria parasites Not Reportable 11/04/19 09:10 [place] Bodies Not Reportable 11/04/19 09:10 Hem Pathologist Commnt No 11/04/19 09:10 PT 15.9 Sec. (12.2-14.9) H 11/04/19 09:10 INR 1.25 (0.87-1.13) H 11/04/19 09:10 APTT 27.7 Sec. (24.2-36.6) 11/04/19 09:10 ABG pH 7.351 pH Units (7.350-7.450) 11/04/19 10:20 ABG pCO2 31.4 mm Hg 11/04/19 10:20 ABG pO2 77.6 mm Hg (80.0-90.0) L 11/04/19 10:20 ABG HCO3 17.0 mmol/L (20.0-26.0) L 11/04/19 10:20 ABG O2 Saturation 95.1 % (95.0-99.0) 11/04/19 10:20 ABG O2 Content 12.7 (0.0-44) 11/04/19 10:20 ABG Base Excess -7.6 mmol/L (-2.0-3.0) L 11/04/19 10:20 ABG Hemoglobin 9.7 gm/dl (14.0-18.0) L 11/04/19 10:20 ABG Carboxyhemoglobin 1.7 % (0.0-5.0) 11/04/19 10:20 ABG Methemoglobin 0.6 % (0.0-1.5) 11/04/19 10:20 Oxyhemoglobin 92.9 % (95.0-99.0) L 11/04/19 10:20 FiO2 10 % 11/04/19 10:20 Sodium 153 mmol/L (137-145) H 11/06/19 04:55 Potassium 4.0 mmol/L (3.6-5.0) D 11/06/19 04:55 Chloride 114.5 mmol/L (98-107) H 11/06/19 04:55 Carbon Dioxide 25 mmol/L (22-30) 11/06/19 04:55 Anion Gap 18 mmol/L 11/06/19 04:55 BUN 82 mg/dL (9-20) H 11/06/19 04:55 Creatinine 2.8 mg/dL (0.8-1.5) H 11/06/19 04:55 Estimated GFR 27 ml/min 11/06/19 04:55 BUN/Creatinine Ratio 29 % 11/06/19 04:55 Glucose 126 mg/dL (75-100) H 11/06/19 04:55 Lactic Acid 2.70 mmol/L (0.7-2.0) H* 11/05/19 07:45 Calcium 9.0 mg/dL (8.4-10.2) 11/06/19 04:55 Magnesium 2.30 mg/dL (1.7-2.3) 11/04/19 09:10 Total Bilirubin 0.40 mg/dL (0.1-1.2) 11/04/19 09:10 Direct Bilirubin < 0.2 mg/dL (0-0.2) 11/04/19 09:10 Indirect Bilirubin 0.2 mg/dL 11/04/19 09:10 AST 67 units/L (5-40) H 11/04/19 09:10 ALT 71 units/L (7-56) H 11/04/19 09:10 Alkaline Phosphatase 90 units/L (35-129) 11/04/19 09:10 Total Creatine Kinase 815 units/L (55-170) H 11/04/19 09:10 CK-MB (CK-2) 14.7 ng/mL (0.0-4.0) H 11/04/19 09:10 CK-MB (CK-2) Rel Index 1.8 (0-4) 11/04/19 09:10 Troponin T 0.198 ng/mL (0.00-0.029) H* 11/06/19 00:52 NT-Pro-B Natriuret Pep 554.4 pg/mL (0-900) 11/04/19 09:10 Total Protein 7.6 g/dL (6.3-8.2) 11/04/19 09:10 Albumin 2.9 g/dL (3.9-5) L 11/04/19 09:10 Albumin/Globulin Ratio 0.6 % 11/04/19 09:10 Triglycerides 56 mg/dL (2-149) 11/04/19 09:10 Cholesterol 96 mg/dL (50-199) 11/04/19 09:10 LDL Cholesterol Direct 59 mg/dL (50-130) 11/04/19 09:10 HDL Cholesterol 38 mg/dL (40-59) L 11/04/19 09:10 Cholesterol/HDL Ratio 2.52 % 11/04/19 09:10 Urine Color Yellow (Yellow) 11/05/19 09:26 Urine Turbidity Clear (Clear) 11/05/19 09:26 Urine pH 8.0 (5.0-7.0) H 11/05/19 09:26 Ur Specific Baker 1.011 (1.003-1.030) 11/05/19 09:26 Urine Protein <15 mg/dl mg/dL (Negative) 11/05/19 09:26 Urine Glucose (UA) Neg mg/dL (Negative) 11/05/19 09:26 Urine Ketones Neg mg/dL (Negative) 11/05/19 09:26 Urine Blood Lg (Negative) 11/05/19 09:26 Urine Nitrite Neg (Negative) 11/05/19 09:26 Urine Bilirubin Neg (Negative) 11/05/19 09:26 Urine Urobilinogen < 2.0 mg/dL (<2.0) 11/05/19 09:26 Ur Leukocyte Esterase Neg (Negative) 11/05/19 09:26 Urine WBC (Auto) 1.0 /HPF (0.0-6.0) 11/05/19 09:26 Urine RBC (Auto) < 1.0 /HPF (0.0-6.0) 11/05/19 09:26 U Epithel Cells (Auto) < 1.0 /HPF (0-13.0) 11/05/19 09:26 Urine Bacteria (Auto) 1+ /HPF (Negative) 11/05/19 09:26 Active Medications - Current Medications Current Medications: Generic Name Dose Route Start Last Admin Trade Name Freq PRN Reason Stop Dose Admin Albuterol 2.5 mg 11/05/19 12:08 11/05/19 12:21 Proventil IH 2.5 mg Q4HRT PRN Administration Shortness Of Breath Allopurinol 300 mg 11/05/19 10:00 11/06/19 10:42 Zyloprim PO 300 mg QDAY AYUSH Administration Lipase/Protease/Amylase 1 each 11/05/19 12:[address] 10,500 Unit FEEDTUBE PRN PRN For Clogged Feeding Tube Atorvastatin Calcium 40 mg 11/04/19 22:00 11/05/19 22:39 Lipitor PO 40 mg QHS AYUSH Administration Cyanocobalamin 1,000 mcg 11/04/19 19:00 11/04/19 23:10 Vitamin B-12 IM 1,000 mcg QMONTH AYUSH Administration Finasteride 5 mg 11/04/19 22:00 11/05/19 22:39 Proscar PO 5 mg QHS AYUSH Administration Folic Acid 1 mg 11/05/19 10:00 11/06/19 10:42 Folvite PO 1 mg DAILY AYUSH Administration Azithromycin 500 mg/ Sodium 250 mls @ 250 mls/hr 11/04/19 19:00 11/06/19 10:42 Chloride IV 250 mls/hr Q24HR AYUSH Administration Protocol Ceftriaxone Sodium 1 gm in 50 mls @ 100 mls/hr 11/04/19 19:00 11/06/19 10:42 Rocephin/Ns 1 Gm/50 Ml IV 100 mls/hr Q24HR AYUSH Administration Protocol Dextrose/Sodium Chloride 1,000 mls @ 125 mls/hr 11/06/19 11:00 D5/0.45ns IV DIRECT AYUSH Sodium Chloride 500 mls @ 0 mls/hr 11/06/19 20:31 Nacl 0.9% 500 Ml IV 11/06/19 20:32 ONCE ONE As Directed Lansoprazole 30 mg 11/05/19 10:00 11/06/19 10:42 Prevacid Solutab FEEDTUBE 30 mg QDAY AYUSH Administration Metoclopramide HCl 10 mg 11/04/19 19:58 Reglan IV Q6H PRN Nausea And Vomiting Ondansetron HCl 4 mg 11/04/19 19:59 11/06/19 01:10 Zofran IV 4 mg Q3HR PRN Administration Nausea And Vomiting Simple Syrup 15 ml 11/05/19 12:00 Simple Syrup FEEDTUBE PRN PRN Hypoglycemia Simple Syrup 30 ml 11/05/19 12:00 Simple Syrup FEEDTUBE PRN PRN Hypoglycemia Sodium Bicarbonate 325 mg 11/05/19 12:00 Sodium Bicarbonate FEEDTUBE PRN PRN For Clogged Feeding Tube Nutrition/Malnutrition Assess - Dietary Evaluation Nutrition/Malnutrition Findings: Nutrition Notes Start: 11/05/19 08:23 Freq: Status: Active Protocol: Document 11/05/19 08:23 (Rec: 11/05/19 09:02 [id number]) Co-Sign 11/05/19 08:23 LP Nutrition Notes Need for Assessment generated from: MD Order Initial or Follow up Assessment Current Diagnosis CKD(stage I-IV),Hypertension, Stroke Other Pertinent Diagnosis AMS, pneu, acute encephalopathy, dyslipidemia, septic shock, hypernatremia Current Diet No diet Labs/Tests Na 156 K 5.7 BUN 95 Cr 3.2 BG 67 Pertinent Medications Pressors Nacl at 75 ml/hr Height 5 ft 7 in Weight 96.434 kg [place] Body Weight (kg) 67.27 BMI 33.3 Weight Status Obese Subjective/Other Information MD consult for TF and malnutrition. RN reports pt has not vomited since ED. Pt has PEG placed. TF order placed. Initiate Nepro 1.8 at 35 ml/hr. Burn Absent Trauma Absent GI Symptoms None Difficulty In Swallowing Current % PO Negligible Minimum of two criteria No Reduced Elevator Examiner Strength Measurably Reduced (severe) #1 Nutrition Diagnosis Inadequate oral intake Etiology Stroke, chronic disease As Evidenced by Signs and Symptoms Failed swallow eval Is patient on ventilator? No Is Patient Ambulatory and/or Out of Bed No REE-([facility]-confined to bed) 1966.080 Kcal/Kg value to use for calculation 15 Approximate Energy Requirements Using 1447 kcal/Kg Calculation Used for Recommendations Kcal/kg Additional Notes Pro: 49-65 g (0.6-0.8 g/kg AdjBW 82 kg) Fluid 1ml/kcal or per MD Nutrition Intervention Change Diet Order: TF Nutrition Support: Nepro 1.8 at 35 ml/hr with 250 ml water flush q4h until hypernatremia resolves. Once hypernatremia resolved 150 ml water flush q4h. Kcal 1,512 Protein (gm) 68 Fluid (mL) 610 Goal #1 Initiate TF Goal #2 Meet 75% of protein and energy needs via TF Anticipated Discharge Needs: cannot determine at this time Follow-Up By: 11/07/19 Additional Comments FU for TF initiation and TF tolerance
--- NOTE | 2019-11-06 23:43 | Cat Scan Report ---
CT scan of the chest, abdomen, and pelvis. No contrast is administered. INDICATION: abd pains, chest pains. TECHNIQUE: All CT scans at this location are performed using the following dose modulation technique: Automated exposure control. Helical slices were obtained through the chest, abdomen, and pelvis. No contrast is administered. COMPARISON: CT scan dated 09/07/2016 FINDINGS: Chest: There are bilateral airspace opacities in the lungs airspace opacities in the right upper and right lower lobe with consolidation posteriorly dependently on the right. There is some consolidation with air bronchograms high density material in the left lower lobe patchy airspace opacity in the le ft upper lobe. The appearance is most characteristic of pneumonia. Possibility of aspiration is inclu ded in the differential diagnosis. There are small mediastinal nodes. These are not pathologically en larged. Thoracic aorta is ectatic. ABDOMEN: There is a PEG tube in the stomach. The liver, spleen, pancreas, adrenal glands, and small b owel show no acute abnormality. There is severe right hydronephrosis versus multiple cysts occupying the entire right kidney. This is unchanged from 2016. There is a small cyst in the upper pole the left kidney appears unchanged. There is no obstruction. T here is no free air. Pelvis: Multiple phleboliths are noted. The venous catheter enters from the right groin. There is no adenopathy. There is no inflammatory change. On review of bone windows, no acute osseous abnormalities are seen. IMPRESSION: 1. There is relatively extensive airspace disease in the lungs for pneumonia. Possibility of aspirati on is included in the differential. Signer Name: Trevor Alberto MD Signed: 11/06/2019 11:39 PM Workstation Name: [id number]
[2019-11-06] MEDS: FINASTERIDE 5 MG TAB PO SCH (23:46)
[2019-11-07 05:34] LABS: Hematocrit 27.3 % (35.5-45.6); Hemoglobin 9.2 gm/dl (11.8-15.2); Mean Corpuscular HGB Conc 34 % (32-34); Mean Corpuscular Volume 94 fl (84-94); Red Blood Count 2.89 M/mm3 (3.65-5.03); Red Cell Distribution Width 17.3 % (13.2-15.2)
[2019-11-07 05:44] LABS: Platelet Count 99 K/mm3 (140-440)
[2019-11-07 06:00] LABS: Calcium 9.4 mg/dL (8.4-10.2)
[2019-11-07] MEDS: allopurinoL 300 MG TAB PO SCH (10:26)
[2019-11-07] MEDS: cefTRIAXone/NS 1 GM/50 ML 1 GM/50 ML BAG IV SCH (10:26)
[2019-11-07] MEDS: FOLIC ACID 1 MG TAB PO SCH (10:26)
[2019-11-07] MEDS: LANSOPRAZOLE 30 MG SOLUTAB FEEDTUBE SCH (10:26)
[2019-11-07] MEDS: AZITHROMYCIN 500 MG in SODIUM CHLORIDE 0.9% 250ML 250 ML IV SCH (10:26)
--- NOTE | 2019-11-07 11:08 | Progress Note ---
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 Absent: scleral icterus - ENT ENT exam: Present: mucous membranes dry - Neck Neck exam: Present: normal inspection - Respiratory Respiratory exam: Present: rhonchi, accessory muscle use, decreased breath sounds - Cardiovascular Cardiovascular Exam: Present: regular rate, normal rhythm. Absent: systolic murmur, diastolic murmur, rubs, gallop - GI/Abdominal GI/Abdominal exam: Present: soft, other (G tube site is clean with good hygiene). Absent: distended, tenderness, guarding, rebound, rigid - Extremities Exam Extremities exam: Present: normal inspection - Neurological Exam Neurological exam: Present: CN II-XII intact (as testable). Absent: motor sensory deficit - Psychiatric Psychiatric exam: Present: flat affect - Skin Skin exam: Present: warm, dry, intact, normal color. Absent: rash - Vital Signs Vital signs: Vital Signs - 12hr 11/06/19 11/07/19 11/07/19 23:11 00:00 00:59 Temperature 98.0 F 98.8 F Pulse Rate 116 H Respiratory 18 20 Rate Blood Pressure 144/84 135/80 O2 Sat by Pulse Oximetry 11/07/19 11/07/19 11/07/19 01:35 01:50 02:20 Temperature 98.8 F 98.9 F 99.4 F Pulse Rate 128 H 128 H 121 H Respiratory 20 20 20 Rate Blood Pressure 135/80 105/53 123/72 O2 Sat by Pulse Oximetry 11/07/19 11/07/19 11/07/19 02:50 03:20 03:36 Temperature 99.6 F 99.9 F H 99.9 F H Pulse Rate 116 H 118 H 116 H Respiratory 20 20 20 Rate Blood Pressure 129/64 152/86 153/85 O2 Sat by Pulse Oximetry 11/07/19 11/07/19 11/07/19 04:00 04:33 08:58 Temperature 98.0 F 99.4 F Pulse Rate 116 H 126 H Respiratory 18 18 Rate Blood Pressure 136/82 115/56 O2 Sat by Pulse 95 Oximetry - Lab 11/07/19 04:53 11/07/19 04:53 Most recent lab results ABG pH 7.351 pH Units (7.350-7.450) 11/04/19 10:20 ABG pCO2 31.4 mm Hg 11/04/19 10:20 ABG pO2 77.6 mm Hg (80.0-90.0) L 11/04/19 10:20 ABG HCO3 17.0 mmol/L (20.0-26.0) L 11/04/19 10:20 ABG O2 Saturation 95.1 % (95.0-99.0) 11/04/19 10:20 Calcium 9.4 mg/dL (8.4-10.2) 11/07/19 04:53 Magnesium 2.30 mg/dL (1.7-2.3) 11/04/19 09:10 Medications & Allergies - Medications Allergies/Adverse Reactions: Allergies No Known Allergies Allergy (Unverified 07/23/13 13:35) Home Medications: Home Medications Medication Instructions Recorded Confirmed Last Taken Type AtorvaSTATin [Lipitor] 40 mg PO QHS 09/09/19 11/04/19 Unknown History Cyanocobalamin [Vitamin B-12] 1,000 mcg IM QMONTH 09/09/19 11/04/19 Unknown History Finasteride [Proscar] 5 mg PO QHS 09/09/19 11/04/19 Unknown History Folic Acid 1 mg PO DAILY 09/09/19 11/04/19 Unknown History Vit-Fe Fumar-FA [ 1 tab PO DAILY 09/09/19 11/04/19 Unknown History Vitamin] allopurinoL [Zyloprim] 300 mg PO QDAY 09/09/19 11/04/19 Unknown History Lansoprazole Solutab [Prevacid 30 mg FEEDTUBE QDAY 30 Days 10/09/19 11/04/19 Unknown Rx Solutab] tab.rapdis Metoprolol Xl [Metoprolol 25 mg PO QDAY #30 tablet 10/09/19 11/04/19 Unknown Rx SUCCINATE ER TAB] Tamsulosin [Flomax] 0.4 mg PO QDAY #30 capsule 10/09/19 11/04/19 Unknown Rx Active Medications: Generic Name Dose Route Start Last Admin Trade Name Freq PRN Reason Stop Dose Admin Albuterol 2.5 mg 11/05/19 12:08 11/05/19 12:21 Proventil IH 2.5 mg Q4HRT PRN Administration Shortness Of Breath Allopurinol 300 mg 11/05/19 10:00 11/07/19 10:26 Zyloprim PO 300 mg QDAY AYUSH Administration Lipase/Protease/Amylase 1 each 11/05/19 12:00 Pancreaze 10,500 Unit FEEDTUBE PRN PRN For Clogged Feeding Tube Atorvastatin Calcium 40 mg 11/04/19 22:00 11/06/19 23:46 Lipitor PO 40 mg QHS AYUSH Administration Cyanocobalamin 1,000 mcg 11/04/19 19:00 11/04/19 23:10 Vitamin B-12 IM 1,000 mcg QMONTH AYUSH Administration Finasteride 5 mg 11/04/19 22:00 11/06/19 23:46 Proscar PO 5 mg QHS AYUSH Administration Folic Acid 1 mg 11/05/19 10:00 11/07/19 10:26 Folvite PO 1 mg DAILY AYUSH Administration Azithromycin 500 mg/ Sodium 250 mls @ 250 mls/hr 11/04/19 19:00 11/07/19 10:26 Chloride IV 250 mls/hr Q24HR AYUSH Administration Protocol Ceftriaxone Sodium 1 gm in 50 mls @ 100 mls/hr 11/04/19 19:00 11/07/19 10:26 Rocephin/Ns 1 Gm/50 Ml IV 100 mls/hr Q24HR AYUSH Administration Protocol Dextrose/Sodium Chloride 1,000 mls @ 125 mls/hr 11/06/19 11:00 D5/0.45ns IV DIRECT AYUSH Lansoprazole 30 mg 11/05/19 10:00 11/07/19 10:26 Prevacid Solutab FEEDTUBE 30 mg QDAY AYUSH Administration Metoclopramide HCl 10 mg 11/04/19 19:58 Reglan IV Q6H PRN Nausea And Vomiting Ondansetron HCl 4 mg 11/04/19 19:59 11/06/19 01:10 Zofran IV 4 mg Q3HR PRN Administration Nausea And Vomiting Simple Syrup 15 ml 11/05/19 12:00 Simple Syrup FEEDTUBE PRN PRN Hypoglycemia Simple Syrup 30 ml 11/05/19 12:00 Simple Syrup FEEDTUBE PRN PRN Hypoglycemia Sodium Bicarbonate 325 mg 11/05/19 12:00 Sodium Bicarbonate FEEDTUBE PRN PRN For Clogged Feeding Tube
--- NOTE | 2019-11-07 11:11 | Progress Note ---
Assessment and Plan AMS Acute Metabolic Encephalopathy per primary. Head CT with NAF. Recent PNA / ? sepsis with septic shock / lactic acidosis Blood cultures negative to date. Pt afebrile. WBC WNL. Currently weaned off vasopressors. IVF per primary and critical care. Abx per primary. Acute on chronic renal insufficiency Nephrology following. Hypernatremia Improving. Hyperkalemia Improving. NSTEMI Echo reviewed - EF 45-50%, cannot r/o bicuspid aortic valve. Suspect type II. ECG with no acute ischemic changes. No plans for ischemic evaluation at this time. H/o CVA Dementia Malnutrition PEG tube in situ. Currently stable cardiac status. No plans for additional cardiac w/u at this time. Will sign off. Recommend pt follow up in our office with Dr. Serrano with in 1-2 weeks of discharge ([phone]). The patient has been seen in conjunction with Dr. Andrade who agrees with the assessment and plan of care. Subjective Date of service: 11/07/19 Principal diagnosis: chris on ckd Interval history: pt resting in bed, nonverbal, no apparent distress. in SR on tele. Objective Last Vital Signs Temp 99.4 F 11/07/19 08:58 Pulse 126 H 11/07/19 08:58 Resp 18 11/07/19 08:58 BP 115/56 11/07/19 08:58 Pulse Ox 95 11/07/19 08:58 - Physical Examination General: No Apparent Distress, Other (withdrawn, nonverbal) HEENT: Positive: PERRL Cardiac: Positive: Reg Rate and Rhythm, S1/S2 Lungs: Positive: Decreased Breath Sounds Neuro: Positive: Other (nonverbal, moves all extremities and withdraws from pain) Skin: Negative: Rash Extremities: Absent: edema - Labs and Meds CBC 11/06/19 11/07/19 Range/Units 13:32 04:53 WBC 6.2 6.4 (4.5-11.0) K/mm3 RBC 2.18 L 2.89 L (3.65-5.03) M/mm3 Hgb 7.1 L 9.2 L (11.8-15.2) gm/dl Hct 21.2 L 27.3 L D (35.5-45.6) % Plt Count 93 L 99 L (140-440) K/mm3 Comprehensive Metabolic Panel 11/07/19 Range/Units 04:53 Sodium 155 H (137-145) mmol/L Potassium 3.9 (3.6-5.0) mmol/L Chloride 114.2 H (98-107) mmol/L Carbon Dioxide 25 (22-30) mmol/L BUN 74 H (9-20) mg/dL Creatinine 2.5 H (0.8-1.5) mg/dL Glucose 112 H (75-100) mg/dL Calcium 9.4 (8.4-10.2) mg/dL - Imaging and Cardiology EKG: report reviewed, image reviewed Echo: report reviewed - Telemetry EKG Rhythm: Sinus Rhythm - EKG Sinus rhythms and dysrhythmias: sinus rhythm
--- NOTE | 2019-11-07 20:02 | Progress Note ---
Assessment and Plan Assessment and plan: Patient is a 79 yo man from [facility] with a history of hypertension, CKD 3, Dementia, thrombocytopenia, hypernatremia, BPH, dyslipidemia, CVA with aphasia, who presented with acute onset of AMS They state that they were not informed of the patient's low blood pressure or if he had any recent history of fever. He arrived at this facility with respiratory difficulty. His blood pressure was 60 systolic. He was given fluid resuscitation and a central line was immediately placed. He was able to protect his airway and his pulse oximetry was adequately preserved (95%). He is noted to have a G-tube. He gives no history. Daughter Lynn, who is stated POA gives a history of having history of CVA with aphasia but was able to walk up until 09/10/2019 when he fell at [facility] assisted [facility]. Patient stayed in this hospital from 09/10/19 until 10/09/2019 and was discharged to [facility]. During that hospitalization, he had PNA, GIB/coffee ground emesis s/p EGD that showed antral gastritis and moderate distal esophagitis, PEG placement on 10/03/19. * pCXR Impression: Resolving bilateral bronchopneumonia * CT head without contrast: No acute abnormality, extensive chronic ischemic changes and cerebral atrophy Acute anemia with precipitous drop in H/H, tachycardia and borderline hypotension throughout day: get FOBT, hu CT abd/pelvis/chest, consult GI, transfuse 1 unit Acute Metabolic Encephalopathy with sodium level of 160, needing inpatient admission to address Severe hyponatremia: more free water needed, monitor bmp daily, consulted Nephrology Hypovolemic shock s/p right TLC femoral line: off Vasopressor, continue IVF, shock resolved ARF/CKD 3 due to ATN: consulted Renal, treated NSS but sodium level high. 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 Physical - Physical exam Narrative exam: Gen: cachetic, chronic disable, moderate increase accessory muscles, moaning, NRB 100% o2 mask applied HEENT: baptism muscle wasting, NCAT,> resist eyes being examined, OP dry Neck: supple, no adenopathy, no thyromegaly, no JVD CVS/Heart: RRR, normal S1S2, pulses present bilaterally Chest/Lungs: diminished and coarse bs bilaterally, Symmetrical chest expansion, reduced air entry bilaterally GI/Abdomen: soft, NTND, good bowel sounds, no guarding or rebound /Bladder: no suprapubic tenderness, no CVA or paraspinal tenderness Extermity/Skin: atrophy tenar and hypotenar muscles, poor skin intergrity MSK: FROM x 3 Neuro: CN 2-12 grossly intact except speech, doesnt follow commands Psych: anxious - Constitutional Vitals: Temp Pulse Resp BP Pulse Ox 98.2 F 104 H 18 138/79 100 11/07/19 17:19 11/07/19 17:19 11/07/19 17:19 11/07/19 17:19 11/07/19 17:19 General appearance: Present: no acute distress, cachectic Results - Labs CBC & Chem 7: 11/07/19 04:53 11/07/19 04:53 Labs: Laboratory Last Values WBC 6.4 K/mm3 (4.5-11.0) 11/07/19 04:53 RBC 2.89 M/mm3 (3.65-5.03) L 11/07/19 04:53 Hgb 9.2 gm/dl (11.8-15.2) L 11/07/19 04:53 Hct 27.3 % (35.5-45.6) L D 11/07/19 04:53 MCV 94 fl (84-94) 11/07/19 04:53 MCH 32 pg (28-32) 11/07/19 04:53 MCHC 34 % (32-34) 11/07/19 04:53 RDW 17.3 % (13.2-15.2) H 11/07/19 04:53 Plt Count 99 K/mm3 (140-440) L 11/07/19 04:53 Add Manual Diff Complete 11/04/19 09:10 Total Counted 100 11/04/19 09:10 Seg Neuts % (Manual) 77.0 % (40.0-70.0) H 11/04/19 09:10 Band Neutrophils % 9.0 % 11/04/19 09:10 Lymphocytes % (Manual) 8.0 % (13.4-35.0) L 11/04/19 09:10 Reactive Lymphs % (Man) 0 % 11/04/19 09:10 Monocytes % (Manual) 3.0 % (0.0-7.3) 11/04/19 09:10 Eosinophils % (Manual) 2.0 % (0.0-4.3) 11/04/19 09:10 Basophils % (Manual) 0 % (0.0-1.8) 11/04/19 09:10 Metamyelocytes % 1.0 % 11/04/19 09:10 Myelocytes % 0 % 11/04/19 09:10 Promyelocytes % 0 % 11/04/19 09:10 Blast Cells % 0 % 11/04/19 09:10 Nucleated RBC % Not Reportable 11/04/19 09:10 Seg Neutrophils # Man 5.7 K/mm3 (1.8-7.7) 11/04/19 09:10 Band Neutrophils # 0.7 K/mm3 11/04/19 09:10 Lymphocytes # (Manual) 0.6 K/mm3 (1.2-5.4) L 11/04/19 09:10 Abs React Lymphs (Man) 0.0 K/mm3 11/04/19 09:10 Monocytes # (Manual) 0.2 K/mm3 (0.0-0.8) 11/04/19 09:10 Eosinophils # (Manual) 0.1 K/mm3 (0.0-0.4) 11/04/19 09:10 Basophils # (Manual) 0.0 K/mm3 (0.0-0.1) 11/04/19 09:10 Metamyelocytes # 0.1 K/mm3 11/04/19 09:10 Myelocytes # 0.0 K/mm3 11/04/19 09:10 Promyelocytes # 0.0 K/mm3 11/04/19 09:10 Blast Cells # 0.0 K/mm3 11/04/19 09:10 WBC Morphology Not Reportable 11/04/19 09:10 Hypersegmented Neuts Not Reportable 11/04/19 09:10 Hyposegmented Neuts Not Reportable 11/04/19 09:10 Hypogranular Neuts Not Reportable 11/04/19 09:10 Smudge Cells Not Reportable 11/04/19 09:10 Toxic Granulation Not Reportable 11/04/19 09:10 Toxic Vacuolation Not Reportable 11/04/19 09:10 Dohle Bodies Not Reportable 11/04/19 09:10 Pelger-Huet Anomaly Not Reportable 11/04/19 09:10 Kp Rods Not Reportable 11/04/19 09:10 Platelet Estimate Consistent w auto 11/04/19 09:10 Clumped Platelets Not Reportable 11/04/19 09:10 Plt Clumps, EDTA Not Reportable 11/04/19 09:10 Large Platelets Not Reportable 11/04/19 09:10 Giant Platelets Not Reportable 11/04/19 09:10 Platelet Satelliting Not Reportable 11/04/19 09:10 Plt Morphology Comment Not Reportable 11/04/19 09:10 RBC Morphology Not Reportable 11/04/19 09:10 Dimorphic RBCs Not Reportable 11/04/19 09:10 Polychromasia Not Reportable 11/04/19 09:10 Hypochromasia Not Reportable 11/04/19 09:10 Poikilocytosis Not Reportable 11/04/19 09:10 Anisocytosis Few 11/04/19 09:10 Microcytosis Not Reportable 11/04/19 09:10 Macrocytosis Not Reportable 11/04/19 09:10 Spherocytes Not Reportable 11/04/19 09:10 Pappenheimer Bodies Not Reportable 11/04/19 09:10 Sickle Cells Not Reportable 11/04/19 09:10 Target Cells Not Reportable 11/04/19 09:10 Tear Drop Cells Not Reportable 11/04/19 09:10 Ovalocytes Not Reportable 11/04/19 09:10 Helmet Cells Not Reportable 11/04/19 09:10 [place] Bodies Not Reportable 11/04/19 09:10 [place] Rings Not Reportable 11/04/19 09:10 Gaston Cells Not Reportable 11/04/19 09:10 Bite Cells Not Reportable 11/04/19 09:10 Crenated Cell Not Reportable 11/04/19 09:10 Elliptocytes Not Reportable 11/04/19 09:10 Acanthocytes (Spur) Not Reportable 11/04/19 09:10 Rouleaux Not Reportable 11/04/19 09:10 Hemoglobin C Crystals Not Reportable 11/04/19 09:10 Schistocytes Not Reportable 11/04/19 09:10 Malaria parasites Not Reportable 11/04/19 09:10 Warren Bodies Not Reportable 11/04/19 09:10 Hem Pathologist Commnt No 11/04/19 09:10 PT 15.9 Sec. (12.2-14.9) H 11/04/19 09:10 INR 1.25 (0.87-1.13) H 11/04/19 09:10 APTT 27.7 Sec. (24.2-36.6) 11/04/19 09:10 ABG pH 7.351 pH Units (7.350-7.450) 11/04/19 10:20 ABG pCO2 31.4 mm Hg 11/04/19 10:20 ABG pO2 77.6 mm Hg (80.0-90.0) L 11/04/19 10:20 ABG HCO3 17.0 mmol/L (20.0-26.0) L 11/04/19 10:20 ABG O2 Saturation 95.1 % (95.0-99.0) 11/04/19 10:20 ABG O2 Content 12.7 (0.0-44) 11/04/19 10:20 ABG Base Excess -7.6 mmol/L (-2.0-3.0) L 11/04/19 10:20 ABG Hemoglobin 9.7 gm/dl (14.0-18.0) L 11/04/19 10:20 ABG Carboxyhemoglobin 1.7 % (0.0-5.0) 11/04/19 10:20 ABG Methemoglobin 0.6 % (0.0-1.5) 11/04/19 10:20 Oxyhemoglobin 92.9 % (95.0-99.0) L 11/04/19 10:20 FiO2 10 % 11/04/19 10:20 Sodium 155 mmol/L (137-145) H 11/07/19 04:53 Potassium 3.9 mmol/L (3.6-5.0) 11/07/19 04:53 Chloride 114.2 mmol/L (98-107) H 11/07/19 04:53 Carbon Dioxide 25 mmol/L (22-30) 11/07/19 04:53 Anion Gap 20 mmol/L 11/07/19 04:53 BUN 74 mg/dL (9-20) H 11/07/19 04:53 Creatinine 2.5 mg/dL (0.8-1.5) H 11/07/19 04:53 Estimated GFR 30 ml/min 11/07/19 04:53 BUN/Creatinine Ratio 30 % 11/07/19 04:53 Glucose 112 mg/dL (75-100) H 11/07/19 04:53 POC Glucose 121 (70-105) H 11/07/19 12:14 Lactic Acid 2.70 mmol/L (0.7-2.0) H* 11/05/19 07:45 Calcium 9.4 mg/dL (8.4-10.2) 11/07/19 04:53 Magnesium 2.30 mg/dL (1.7-2.3) 11/04/19 09:10 Total Bilirubin 0.40 mg/dL (0.1-1.2) 11/04/19 09:10 Direct Bilirubin < 0.2 mg/dL (0-0.2) 11/04/19 09:10 Indirect Bilirubin 0.2 mg/dL 11/04/19 09:10 AST 67 units/L (5-40) H 11/04/19 09:10 ALT 71 units/L (7-56) H 11/04/19 09:10 Alkaline Phosphatase 90 units/L (35-129) 11/04/19 09:10 Total Creatine Kinase 815 units/L (55-170) H 11/04/19 09:10 CK-MB (CK-2) 14.7 ng/mL (0.0-4.0) H 11/04/19 09:10 CK-MB (CK-2) Rel Index 1.8 (0-4) 11/04/19 09:10 Troponin T 0.198 ng/mL (0.00-0.029) H* 11/06/19 00:52 NT-Pro-B Natriuret Pep 554.4 pg/mL (0-900) 11/04/19 09:10 Total Protein 7.6 g/dL (6.3-8.2) 11/04/19 09:10 Albumin 2.9 g/dL (3.9-5) L 11/04/19 09:10 Albumin/Globulin Ratio 0.6 % 11/04/19 09:10 Triglycerides 56 mg/dL (2-149) 11/04/19 09:10 Cholesterol 96 mg/dL (50-199) 11/04/19 09:10 LDL Cholesterol Direct 59 mg/dL (50-130) 11/04/19 09:10 HDL Cholesterol 38 mg/dL (40-59) L 11/04/19 09:10 Cholesterol/HDL Ratio 2.52 % 11/04/19 09:10 Urine Color Yellow (Yellow) 11/05/19 09:26 Urine Turbidity Clear (Clear) 11/05/19 09:26 Urine pH 8.0 (5.0-7.0) H 11/05/19 09:26 Ur Specific [place] 1.011 (1.003-1.030) 11/05/19 09:26 Urine Protein <15 mg/dl mg/dL (Negative) 11/05/19 09:26 Urine Glucose (UA) Neg mg/dL (Negative) 11/05/19 09:26 Urine Ketones Neg mg/dL (Negative) 11/05/19 09:26 Urine Blood Lg (Negative) 11/05/19 09:26 Urine Nitrite Neg (Negative) 11/05/19 09:26 Urine Bilirubin Neg (Negative) 11/05/19 09:26 Urine Urobilinogen < 2.0 mg/dL (<2.0) 11/05/19 09:26 Ur Leukocyte Esterase Neg (Negative) 11/05/19 09:26 Urine WBC (Auto) 1.0 /HPF (0.0-6.0) 11/05/19 09:26 Urine RBC (Auto) < 1.0 /HPF (0.0-6.0) 11/05/19 09:26 U Epithel Cells (Auto) < 1.0 /HPF (0-13.0) 11/05/19 09:26 Urine Bacteria (Auto) 1+ /HPF (Negative) 11/05/19 09:26 Blood Type A POSITIVE 11/06/19 20:34 Antibody Screen Negative 11/06/19 20:34 Crossmatch See Detail 11/06/19 20:34 Active Medications - Current Medications Current Medications: Generic Name Dose Route Start Last Admin Trade Name Freq PRN Reason Stop Dose Admin Albuterol 2.5 mg 11/05/19 12:08 11/05/19 12:21 Proventil IH 2.5 mg Q4HRT PRN Administration Shortness Of Breath Allopurinol 300 mg 11/05/19 10:00 11/07/19 10:26 Zyloprim PO 300 mg QDAY AYUSH Administration Lipase/Protease/Amylase 1 each 11/05/19 12:00 Pancreazmar Stacy 10,500 Unit FEEDTUBE PRN PRN For Clogged Feeding Tube Aspirin 81 mg 11/08/19 10:00 Baby Aspirin PO QDAY AYUSH Atorvastatin Calcium 40 mg 11/04/19 22:00 11/06/19 23:46 Lipitor PO 40 mg QHS AYUSH Administration Cyanocobalamin 1,000 mcg 11/04/19 19:00 11/04/19 23:10 Vitamin B-12 IM 1,000 mcg QMONTH AYUSH Administration Finasteride 5 mg 11/04/19 22:00 11/06/19 23:46 Proscar PO 5 mg QHS AYUSH Administration Folic Acid 1 mg 11/05/19 10:00 11/07/19 10:26 Folvite PO 1 mg DAILY AYUSH Administration Azithromycin 500 mg/ Sodium 250 mls @ 250 mls/hr 11/04/19 19:00 11/07/19 10:26 Chloride IV 250 mls/hr Q24HR AYUSH Administration Protocol Ceftriaxone Sodium 1 gm in 50 mls @ 100 mls/hr 11/04/19 19:00 11/07/19 10:26 Rocephin/Ns 1 Gm/50 Ml IV 100 mls/hr Q24HR AYUSH Administration Protocol Dextrose 1,000 mls @ 100 mls/hr 11/07/19 12:00 D5w IV DIRECT AYUSH Lansoprazole 30 mg 11/05/19 10:00 11/07/19 10:26 Prevacid Solutab FEEDTUBE 30 mg QDAY AYUSH Administration Metoclopramide HCl 10 mg 11/04/19 19:58 Reglan IV Q6H PRN Nausea And Vomiting Ondansetron HCl 4 mg 11/04/19 19:59 11/06/19 01:10 Zofran IV 4 mg Q3HR PRN Administration Nausea And Vomiting Simple Syrup 15 ml 11/05/19 12:00 Simple Syrup FEEDTUBE PRN PRN Hypoglycemia Simple Syrup 30 ml 11/05/19 12:00 Simple Syrup FEEDTUBE PRN PRN Hypoglycemia Sodium Bicarbonate 325 mg 11/05/19 12:00 Sodium Bicarbonate FEEDTUBE PRN PRN For Clogged Feeding Tube Nutrition/Malnutrition Assess - Dietary Evaluation Nutrition/Malnutrition Findings: Nutrition Notes Start: 11/05/19 08:23 Freq: Status: Active Protocol: Document 11/07/19 10:57 AP (Rec: 11/07/19 11:05 AP [id number]) Co-Sign 11/07/19 10:57 LP Nutrition Notes Initial or Follow up Reassessment Other Pertinent Diagnosis AMS, pneu, acute encephalopathy, dyslipidemia, septic shock, hypernatremia Current Diet Nepro 1.8 at 35ml/hr Labs/Tests BG 112 Cr 2.5 Na 155 BUN 74 Pertinent Medications Reviewed Height 5 ft 7 in Weight 96.434 kg [place] Body Weight (kg) 67.27 BMI 33.3 Subjective/Other Information F/U for TF intiation. Pt RNMary stated Nepro is running at goal (35ml/hr) with no residuals, pt tolerating. Continuing free flush at 250ml q 4 until hypernatremia is resolved. Percent of energy/protein needs met: 110%/105% Burn Absent Trauma Absent GI Symptoms None Difficulty In Swallowing Current % PO Fair (50-74%) Minimum of two criteria No Reduced Solution Advisor Strength Measurably Reduced (severe) #1 Nutrition Diagnosis Inadequate oral intake Diagnosis Progress(for reassessment Continues documentation) Is patient on ventilator? No Is Patient Ambulatory and/or Out of Bed No REE-([facility]-confined to bed) 1966.080 Kcal/Kg value to use for calculation 15 Approximate Energy Requirements Using 1447 kcal/Kg Calculation Used for Recommendations Kcal/kg Additional Notes Pro: 49-65 g (0.6-0.8 g/kg AdjBW 82 kg) Fluid 1ml/kcal or per MD Nutrition Intervention Change Diet Order: Continue Nepro 1.8 at 35ml/hr Nutrition Support: Nepro 1.8 at 35 ml/hr with 250 ml water flush q4h until hypernatremia resolves. Once hypernatremia resolved 150 ml water flush q4h. Kcal 1,512 Protein (gm) 68 Fluid (mL) 610 Goal #1 Pt continue to meet >80% kcal/ PRO needs via TF. Anticipated Discharge Needs: cannot determine at this time Follow-Up By: 11/13/19 Additional Comments FU for TF tolerance
[2019-11-07] MEDS: FINASTERIDE 5 MG TAB PO SCH (22:17)
[2019-11-07] MEDS: DEXTROSE 5% IN WATER 1,000 ML IV SCH (22:18)
[2019-11-08 06:01] LABS: Hematocrit 25.2 % (35.5-45.6); Hemoglobin 8.5 gm/dl (11.8-15.2); Mean Corpuscular HGB Conc 34 % (32-34); Mean Corpuscular Volume 95 fl (84-94); Red Blood Count 2.66 M/mm3 (3.65-5.03); Red Cell Distribution Width 17.3 % (13.2-15.2)
[2019-11-08 06:12] LABS: Platelet Count 78 K/mm3 (140-440)
[2019-11-08 06:51] LABS: Calcium 9.2 mg/dL (8.4-10.2)
[2019-11-08] MEDS: DEXTROSE 5% IN WATER 1,000 ML IV SCH (09:27)
[2019-11-08] MEDS: AZITHROMYCIN 500 MG in SODIUM CHLORIDE 0.9% 250ML 250 ML IV SCH (09:28)
[2019-11-08] MEDS: allopurinoL 300 MG TAB PO SCH (09:29)
[2019-11-08] MEDS: ASPIRIN 81 MG TAB CHEW PO SCH (09:29)
[2019-11-08] MEDS: FOLIC ACID 1 MG TAB PO SCH (09:29)
[2019-11-08] MEDS: LANSOPRAZOLE 30 MG SOLUTAB FEEDTUBE SCH (09:29)
[2019-11-08] MEDS: cefTRIAXone/NS 1 GM/50 ML 1 GM/50 ML BAG IV SCH (10:37)
--- NOTE | 2019-11-08 12:59 | Progress Note ---
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 Absent: scleral icterus - ENT ENT exam: Present: mucous membranes dry - Neck Neck exam: Present: normal inspection - Respiratory Respiratory exam: Present: rhonchi, accessory muscle use, decreased breath sounds - Cardiovascular Cardiovascular Exam: Present: regular rate, normal rhythm. Absent: systolic murmur, diastolic murmur, rubs, gallop - GI/Abdominal GI/Abdominal exam: Present: soft, other (G tube site is clean with good hygiene). Absent: distended, tenderness, guarding, rebound, rigid - Extremities Exam Extremities exam: Present: normal inspection - Neurological Exam Neurological exam: Present: CN II-XII intact (as testable). Absent: motor sensory deficit - Psychiatric Psychiatric exam: Present: flat affect - Skin Skin exam: Present: warm, dry, intact, normal color. Absent: rash - Vital Signs Vital signs: Vital Signs - 12hr 11/08/19 11/08/19 11/08/19 05:09 07:54 08:01 Temperature 98.0 F 98.1 F Pulse Rate 110 H 74 Respiratory 18 18 Rate Blood Pressure 134/76 138/85 O2 Sat by Pulse 98 Oximetry - Lab 11/08/19 05:45 11/08/19 05:45 Most recent lab results ABG pH 7.351 pH Units (7.350-7.450) 11/04/19 10:20 ABG pCO2 31.4 mm Hg 11/04/19 10:20 ABG pO2 77.6 mm Hg (80.0-90.0) L 11/04/19 10:20 ABG HCO3 17.0 mmol/L (20.0-26.0) L 11/04/19 10:20 ABG O2 Saturation 95.1 % (95.0-99.0) 11/04/19 10:20 Calcium 9.2 mg/dL (8.4-10.2) 11/08/19 05:45 Magnesium 2.30 mg/dL (1.7-2.3) 11/04/19 09:10 Medications & Allergies - Medications Allergies/Adverse Reactions: Allergies No Known Allergies Allergy (Unverified 07/23/13 13:35) Home Medications: Home Medications Medication Instructions Recorded Confirmed Last Taken Type AtorvaSTATin [Lipitor] 40 mg PO QHS 09/09/19 11/04/19 Unknown History Cyanocobalamin [Vitamin B-12] 1,000 mcg IM QMONTH 09/09/19 11/04/19 Unknown History Finasteride [Proscar] 5 mg PO QHS 09/09/19 11/04/19 Unknown History Folic Acid 1 mg PO DAILY 09/09/19 11/04/19 Unknown History Vit-Fe Fumar-FA [ 1 tab PO DAILY 09/09/19 11/04/19 Unknown History Vitamin] allopurinoL [Zyloprim] 300 mg PO QDAY 09/09/19 11/04/19 Unknown History Lansoprazole Solutab [Prevacid 30 mg FEEDTUBE QDAY 30 Days 10/09/19 11/04/19 Unknown Rx Solutab] tab.rapdis Metoprolol Xl [Metoprolol 25 mg PO QDAY #30 tablet 10/09/19 11/04/19 Unknown Rx SUCCINATE ER TAB] Tamsulosin [Flomax] 0.4 mg PO QDAY #30 capsule 10/09/19 11/04/19 Unknown Rx Active Medications: Generic Name Dose Route Start Last Admin Trade Name Freq PRN Reason Stop Dose Admin Albuterol 2.5 mg 11/05/19 12:08 11/05/19 12:21 Proventil IH 2.5 mg Q4HRT PRN Administration Shortness Of Breath Allopurinol 300 mg 11/05/19 10:00 11/08/19 09:29 Zyloprim PO 300 mg QDAY AYUSH Administration Lipase/Protease/Amylase 1 each 11/05/19 12:00 Mayra Stacy 10,500 Unit FEEDTUBE PRN PRN For Clogged Feeding Tube Aspirin 81 mg 11/08/19 10:00 11/08/19 09:29 Baby Aspirin PO 81 mg QDAY AYUSH Administration Atorvastatin Calcium 40 mg 11/04/19 22:00 11/07/19 22:17 Lipitor PO 40 mg QHS AYUSH Administration Cyanocobalamin 1,000 mcg 11/04/19 19:00 11/04/19 23:10 Vitamin B-12 IM 1,000 mcg QMONTH AYUSH Administration Finasteride 5 mg 11/04/19 22:00 11/07/19 22:17 Proscar PO Not Given QHS [facility] Folic Acid 1 mg 11/05/19 10:00 11/08/19 09:29 Folvite PO 1 mg DAILY AYUSH Administration Azithromycin 500 mg/ Sodium 250 mls @ 250 mls/hr 11/04/19 19:00 11/08/19 09:28 Chloride IV 250 mls/hr Q24HR AYUSH Administration Protocol Ceftriaxone Sodium 1 gm in 50 mls @ 100 mls/hr 11/04/19 19:00 11/08/19 10:37 Rocephin/Ns 1 Gm/50 Ml IV 100 mls/hr Q24HR AYUSH Administration Protocol Potassium Chloride 20 meq/ 1,010 mls @ 100 mls/hr 11/08/19 12:58 Dextrose IV DIRECT AYUSH Lansoprazole 30 mg 11/05/19 10:00 11/08/19 09:29 Prevacid Solutab FEEDTUBE 30 mg QDAY AYUSH Administration Metoclopramide HCl 10 mg 11/04/19 19:58 Reglan IV Q6H PRN Nausea And Vomiting Ondansetron HCl 4 mg 11/04/19 19:59 11/06/19 01:10 Zofran IV 4 mg Q3HR PRN Administration Nausea And Vomiting Simple Syrup 15 ml 11/05/19 12:00 Simple Syrup FEEDTUBE PRN PRN Hypoglycemia Simple Syrup 30 ml 11/05/19 12:00 Simple Syrup FEEDTUBE PRN PRN Hypoglycemia Sodium Bicarbonate 325 mg 11/05/19 12:00 Sodium Bicarbonate FEEDTUBE PRN PRN For Clogged Feeding Tube
[2019-11-08] MEDS: DEXTROSE 5% IN WATER 1,000 ML with POTASSIUM CHLORIDE 20 MEQ IV SCH (15:54)
--- NOTE | 2019-11-08 17:51 | Progress Note ---
Assessment and Plan Assessment and plan: Patient is a 79 yo man from [facility] with a history of hypertension, CKD 3, Dementia, thrombocytopenia, hypernatremia, BPH, dyslipidemia, CVA with aphasia, who presented with acute onset of AMS They state that they were not informed of the patient's low blood pressure or if he had any recent history of fever. He arrived at this facility with respiratory difficulty. His blood pressure was 60 systolic. He was given fluid resuscitation and a central line was immediately placed. He was able to protect his airway and his pulse oximetry was adequately preserved (95%). He is noted to have a G-tube. He gives no history. Daughter Lynn, who is stated POA gives a history of having history of CVA with aphasia but was able to walk up until 09/10/2019 when he fell at [facility] assisted [facility]. Patient stayed in this hospital from 09/10/19 until 10/09/2019 and was discharged to [facility]. During that hospitalization, he had PNA, GIB/coffee ground emesis s/p EGD that showed antral gastritis and moderate distal esophagitis, PEG placement on 10/03/19. * pCXR Impression: Resolving bilateral bronchopneumonia * CT head without contrast: No acute abnormality, extensive chronic ischemic changes and cerebral atrophy Acute anemia with precipitous drop in H/H, tachycardia and borderline hypotension throughout day: get FOBT, hu CT abd/pelvis/chest, consult GI, transfuse 1 unit Acute Metabolic Encephalopathy with sodium level of 160, needing inpatient admission to address Severe hyponatremia: more free water needed, monitor bmp daily, consulted Nephrology Hypovolemic shock s/p right TLC femoral line: off Vasopressor, continue IVF, shock resolved ARF/CKD 3 due to ATN: consulted Renal, treated NSS but sodium level high. 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 Physical - Physical exam Narrative exam: Gen: cachetic, chronic disable, moderate increase accessory muscles, moaning, NRB 100% o2 mask applied HEENT: orthodoxy muscle wasting, NCAT,> resist eyes being examined, OP dry Neck: supple, no adenopathy, no thyromegaly, no JVD CVS/Heart: RRR, normal S1S2, pulses present bilaterally Chest/Lungs: diminished and coarse bs bilaterally, Symmetrical chest expansion, reduced air entry bilaterally GI/Abdomen: soft, NTND, good bowel sounds, no guarding or rebound /Bladder: no suprapubic tenderness, no CVA or paraspinal tenderness Extermity/Skin: atrophy tenar and hypotenar muscles, poor skin intergrity MSK: FROM x 3 Neuro: CN 2-12 grossly intact except speech, doesnt follow commands Psych: anxious - Constitutional Vitals: Temp Pulse Resp BP Pulse Ox 98.2 F 74 18 141/80 98 11/08/19 12:16 11/08/19 08:01 11/08/19 12:16 11/08/19 12:16 11/08/19 08:01 General appearance: Present: no acute distress, cachectic Results - Labs CBC & Chem 7: 11/08/19 05:45 11/08/19 05:45 Labs: Laboratory Last Values WBC 6.7 K/mm3 (4.5-11.0) 11/08/19 05:45 RBC 2.66 M/mm3 (3.65-5.03) L 11/08/19 05:45 Hgb 8.5 gm/dl (11.8-15.2) L 11/08/19 05:45 Hct 25.2 % (35.5-45.6) L 11/08/19 05:45 MCV 95 fl (84-94) H 11/08/19 05:45 MCH 32 pg (28-32) 11/08/19 05:45 MCHC 34 % (32-34) 11/08/19 05:45 RDW 17.3 % (13.2-15.2) H 11/08/19 05:45 Plt Count 78 K/mm3 (140-440) L 11/08/19 05:45 Add Manual Diff Complete 11/04/19 09:10 Total Counted 100 11/04/19 09:10 Seg Neuts % (Manual) 77.0 % (40.0-70.0) H 11/04/19 09:10 Band Neutrophils % 9.0 % 11/04/19 09:10 Lymphocytes % (Manual) 8.0 % (13.4-35.0) L 11/04/19 09:10 Reactive Lymphs % (Man) 0 % 11/04/19 09:10 Monocytes % (Manual) 3.0 % (0.0-7.3) 11/04/19 09:10 Eosinophils % (Manual) 2.0 % (0.0-4.3) 11/04/19 09:10 Basophils % (Manual) 0 % (0.0-1.8) 11/04/19 09:10 Metamyelocytes % 1.0 % 11/04/19 09:10 Myelocytes % 0 % 11/04/19 09:10 Promyelocytes % 0 % 11/04/19 09:10 Blast Cells % 0 % 11/04/19 09:10 Nucleated RBC % Not Reportable 11/04/19 09:10 Seg Neutrophils # Man 5.7 K/mm3 (1.8-7.7) 11/04/19 09:10 Band Neutrophils # 0.7 K/mm3 11/04/19 09:10 Lymphocytes # (Manual) 0.6 K/mm3 (1.2-5.4) L 11/04/19 09:10 Abs React Lymphs (Man) 0.0 K/mm3 11/04/19 09:10 Monocytes # (Manual) 0.2 K/mm3 (0.0-0.8) 11/04/19 09:10 Eosinophils # (Manual) 0.1 K/mm3 (0.0-0.4) 11/04/19 09:10 Basophils # (Manual) 0.0 K/mm3 (0.0-0.1) 11/04/19 09:10 Metamyelocytes # 0.1 K/mm3 11/04/19 09:10 Myelocytes # 0.0 K/mm3 11/04/19 09:10 Promyelocytes # 0.0 K/mm3 11/04/19 09:10 Blast Cells # 0.0 K/mm3 11/04/19 09:10 WBC Morphology Not Reportable 11/04/19 09:10 Hypersegmented Neuts Not Reportable 11/04/19 09:10 Hyposegmented Neuts Not Reportable 11/04/19 09:10 Hypogranular Neuts Not Reportable 11/04/19 09:10 Smudge Cells Not Reportable 11/04/19 09:10 Toxic Granulation Not Reportable 11/04/19 09:10 Toxic Vacuolation Not Reportable 11/04/19 09:10 Dohle Bodies Not Reportable 11/04/19 09:10 Pelger-Huet Anomaly Not Reportable 11/04/19 09:10 Kp Rods Not Reportable 11/04/19 09:10 Platelet Estimate Consistent w auto 11/04/19 09:10 Clumped Platelets Not Reportable 11/04/19 09:10 Plt Clumps, EDTA Not Reportable 11/04/19 09:10 Large Platelets Not Reportable 11/04/19 09:10 Giant Platelets Not Reportable 11/04/19 09:10 Platelet Satelliting Not Reportable 11/04/19 09:10 Plt Morphology Comment Not Reportable 11/04/19 09:10 RBC Morphology Not Reportable 11/04/19 09:10 Dimorphic RBCs Not Reportable 11/04/19 09:10 Polychromasia Not Reportable 11/04/19 09:10 Hypochromasia Not Reportable 11/04/19 09:10 Poikilocytosis Not Reportable 11/04/19 09:10 Anisocytosis Few 11/04/19 09:10 Microcytosis Not Reportable 11/04/19 09:10 Macrocytosis Not Reportable 11/04/19 09:10 Spherocytes Not Reportable 11/04/19 09:10 Pappenheimer Bodies Not Reportable 11/04/19 09:10 Sickle Cells Not Reportable 11/04/19 09:10 Target Cells Not Reportable 11/04/19 09:10 Tear Drop Cells Not Reportable 11/04/19 09:10 Ovalocytes Not Reportable 11/04/19 09:10 Helmet Cells Not Reportable 11/04/19 09:10 [place] Bodies Not Reportable 11/04/19 09:10 [place] Rings Not Reportable 11/04/19 09:10 [place] Cells Not Reportable 11/04/19 09:10 Bite Cells Not Reportable 11/04/19 09:10 Crenated Cell Not Reportable 11/04/19 09:10 Elliptocytes Not Reportable 11/04/19 09:10 Acanthocytes (Spur) Not Reportable 11/04/19 09:10 Rouleaux Not Reportable 11/04/19 09:10 Hemoglobin C Crystals Not Reportable 11/04/19 09:10 Schistocytes Not Reportable 11/04/19 09:10 Malaria parasites Not Reportable 11/04/19 09:10 [place] Bodies Not Reportable 11/04/19 09:10 Hem Pathologist Commnt No 11/04/19 09:10 PT 15.9 Sec. (12.2-14.9) H 11/04/19 09:10 INR 1.25 (0.87-1.13) H 11/04/19 09:10 APTT 27.7 Sec. (24.2-36.6) 11/04/19 09:10 ABG pH 7.351 pH Units (7.350-7.450) 11/04/19 10:20 ABG pCO2 31.4 mm Hg 11/04/19 10:20 ABG pO2 77.6 mm Hg (80.0-90.0) L 11/04/19 10:20 ABG HCO3 17.0 mmol/L (20.0-26.0) L 11/04/19 10:20 ABG O2 Saturation 95.1 % (95.0-99.0) 11/04/19 10:20 ABG O2 Content 12.7 (0.0-44) 11/04/19 10:20 ABG Base Excess -7.6 mmol/L (-2.0-3.0) L 11/04/19 10:20 ABG Hemoglobin 9.7 gm/dl (14.0-18.0) L 11/04/19 10:20 ABG Carboxyhemoglobin 1.7 % (0.0-5.0) 11/04/19 10:20 ABG Methemoglobin 0.6 % (0.0-1.5) 11/04/19 10:20 Oxyhemoglobin 92.9 % (95.0-99.0) L 11/04/19 10:20 FiO2 10 % 11/04/19 10:20 Sodium 147 mmol/L (137-145) H D 11/08/19 05:45 Potassium 3.5 mmol/L (3.6-5.0) L 11/08/19 05:45 Chloride 110.9 mmol/L (98-107) H 11/08/19 05:45 Carbon Dioxide 23 mmol/L (22-30) 11/08/19 05:45 Anion Gap 17 mmol/L 11/08/19 05:45 BUN 73 mg/dL (9-20) H 11/08/19 05:45 Creatinine 2.3 mg/dL (0.8-1.5) H 11/08/19 05:45 Estimated GFR 33 ml/min 11/08/19 05:45 BUN/Creatinine Ratio 32 % 11/08/19 05:45 Glucose 149 mg/dL (75-100) H 11/08/19 05:45 POC Glucose 121 (70-105) H 11/07/19 12:14 Lactic Acid 2.70 mmol/L (0.7-2.0) H* 11/05/19 07:45 Calcium 9.2 mg/dL (8.4-10.2) 11/08/19 05:45 Magnesium 2.30 mg/dL (1.7-2.3) 11/04/19 09:10 Total Bilirubin 0.40 mg/dL (0.1-1.2) 11/04/19 09:10 Direct Bilirubin < 0.2 mg/dL (0-0.2) 11/04/19 09:10 Indirect Bilirubin 0.2 mg/dL 11/04/19 09:10 AST 67 units/L (5-40) H 11/04/19 09:10 ALT 71 units/L (7-56) H 11/04/19 09:10 Alkaline Phosphatase 90 units/L (35-129) 11/04/19 09:10 Total Creatine Kinase 815 units/L (55-170) H 11/04/19 09:10 CK-MB (CK-2) 14.7 ng/mL (0.0-4.0) H 11/04/19 09:10 CK-MB (CK-2) Rel Index 1.8 (0-4) 11/04/19 09:10 Troponin T 0.198 ng/mL (0.00-0.029) H* 11/06/19 00:52 NT-Pro-B Natriuret Pep 554.4 pg/mL (0-900) 11/04/19 09:10 Total Protein 7.6 g/dL (6.3-8.2) 11/04/19 09:10 Albumin 2.9 g/dL (3.9-5) L 11/04/19 09:10 Albumin/Globulin Ratio 0.6 % 11/04/19 09:10 Triglycerides 56 mg/dL (2-149) 11/04/19 09:10 Cholesterol 96 mg/dL (50-199) 11/04/19 09:10 LDL Cholesterol Direct 59 mg/dL (50-130) 11/04/19 09:10 HDL Cholesterol 38 mg/dL (40-59) L 11/04/19 09:10 Cholesterol/HDL Ratio 2.52 % 11/04/19 09:10 Urine Color Yellow (Yellow) 11/05/19 09:26 Urine Turbidity Clear (Clear) 11/05/19 09:26 Urine pH 8.0 (5.0-7.0) H 11/05/19 09:26 Ur Specific [place] 1.011 (1.003-1.030) 11/05/19 09:26 Urine Protein <15 mg/dl mg/dL (Negative) 11/05/19 09:26 Urine Glucose (UA) Neg mg/dL (Negative) 11/05/19 09:26 Urine Ketones Neg mg/dL (Negative) 11/05/19 09:26 Urine Blood Lg (Negative) 11/05/19 09:26 Urine Nitrite Neg (Negative) 11/05/19 09:26 Urine Bilirubin Neg (Negative) 11/05/19 09:26 Urine Urobilinogen < 2.0 mg/dL (<2.0) 11/05/19 09:26 Ur Leukocyte Esterase Neg (Negative) 11/05/19 09:26 Urine WBC (Auto) 1.0 /HPF (0.0-6.0) 11/05/19 09:26 Urine RBC (Auto) < 1.0 /HPF (0.0-6.0) 11/05/19 09:26 U Epithel Cells (Auto) < 1.0 /HPF (0-13.0) 11/05/19 09:26 Urine Bacteria (Auto) 1+ /HPF (Negative) 11/05/19 09:26 Blood Type A POSITIVE 11/06/19 20:34 Antibody Screen Negative 11/06/19 20:34 Crossmatch See Detail 11/06/19 20:34 Active Medications - Current Medications Current Medications: Generic Name Dose Route Start Last Admin Trade Name Freq PRN Reason Stop Dose Admin Albuterol 2.5 mg 11/05/19 12:08 11/05/19 12:21 Proventil IH 2.5 mg Q4HRT PRN Administration Shortness Of Breath Allopurinol 300 mg 11/05/19 10:00 11/08/19 09:29 Zyloprim PO 300 mg QDAY AYUSH Administration Lipase/Protease/Amylase 1 each 11/05/19 12:00 Pancreaze 10,500 Unit FEEDTUBE PRN PRN For Clogged Feeding Tube Aspirin 81 mg 11/08/19 10:00 11/08/19 09:29 Baby Aspirin PO 81 mg QDAY AYUSH Administration Atorvastatin Calcium 40 mg 11/04/19 22:00 11/07/19 22:17 Lipitor PO 40 mg QHS AYUSH Administration Cyanocobalamin 1,000 mcg 11/04/19 19:00 11/04/19 23:10 Vitamin B-12 IM 1,000 mcg QMONTH AYUSH Administration Finasteride 5 mg 11/04/19 22:00 11/07/19 22:17 Proscar PO Not Given QHS AYUSH Folic Acid 1 mg 11/05/19 10:00 11/08/19 09:29 Folvite PO 1 mg DAILY AYUSH Administration Azithromycin 500 mg/ Sodium 250 mls @ 250 mls/hr 11/04/19 19:00 11/08/19 09:28 Chloride IV 250 mls/hr Q24HR AYUSH Administration Protocol Ceftriaxone Sodium 1 gm in 50 mls @ 100 mls/hr 11/04/19 19:00 11/08/19 10:37 Rocephin/Ns 1 Gm/50 Ml IV 100 mls/hr Q24HR AYUSH Administration Protocol Potassium Chloride 20 meq/ 1,010 mls @ 100 mls/hr 11/08/19 12:58 11/08/19 15:54 Dextrose IV 100 mls/hr DIRECT AYUSH Administration Lansoprazole 30 mg 11/05/19 10:00 11/08/19 09:29 Prevacid Solutab FEEDTUBE 30 mg QDAY AYUSH Administration Metoclopramide HCl 10 mg 11/04/19 19:58 Reglan IV Q6H PRN Nausea And Vomiting Ondansetron HCl 4 mg 11/04/19 19:59 11/06/19 01:10 Zofran IV 4 mg Q3HR PRN Administration Nausea And Vomiting Simple Syrup 15 ml 11/05/19 12:00 Simple Syrup FEEDTUBE PRN PRN Hypoglycemia Simple Syrup 30 ml 11/05/19 12:00 Simple Syrup FEEDTUBE PRN PRN Hypoglycemia Sodium Bicarbonate 325 mg 11/05/19 12:00 Sodium Bicarbonate FEEDTUBE PRN PRN For Clogged Feeding Tube Nutrition/Malnutrition Assess - Dietary Evaluation Nutrition/Malnutrition Findings: Nutrition Notes Start: 11/05/19 08:23 Freq: Status: Active Protocol: Document 11/07/19 10:57 AP (Rec: 11/07/19 11:05 AP [id number]) Co-Sign 11/07/19 10:57 LP Nutrition Notes Initial or Follow up Reassessment Other Pertinent Diagnosis AMS, pneu, acute encephalopathy, dyslipidemia, septic shock, hypernatremia Current Diet Nepro 1.8 at 35ml/hr Labs/Tests BG 112 Cr 2.5 Na 155 BUN 74 Pertinent Medications Reviewed Height 5 ft 7 in Weight 96.434 kg [place] Body Weight (kg) 67.27 BMI 33.3 Subjective/Other Information F/U for TF intiation. Pt RNMary stated Nepro is running at goal (35ml/hr) with no residuals, pt tolerating. Continuing free flush at 250ml q 4 until hypernatremia is resolved. 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 No Is Patient Ambulatory and/or Out of Bed No REE-([facility]-confined to bed) 1966.080 Kcal/Kg value to use for calculation 15 Approximate Energy Requirements Using 1447 kcal/Kg Calculation Used for Recommendations Kcal/kg Additional Notes Pro: 49-65 g (0.6-0.8 g/kg AdjBW 82 kg) Fluid 1ml/kcal or per MD Nutrition Intervention Change Diet Order: Continue Nepro 1.8 at 35ml/hr Nutrition Support: Nepro 1.8 at 35 ml/hr with 250 ml water flush q4h until hypernatremia resolves. Once hypernatremia resolved 150 ml water flush q4h. Kcal 1,512 Protein (gm) 68 Fluid (mL) 610 Goal #1 Pt continue to meet >80% kcal/ PRO needs via TF. Anticipated Discharge Needs: cannot determine at this time Follow-Up By: 11/13/19 Additional Comments FU for TF tolerance
[2019-11-08] MEDS: FINASTERIDE 5 MG TAB PO SCH (21:25)
[2019-11-09] MEDS: DEXTROSE 5% IN WATER 1,000 ML with POTASSIUM CHLORIDE 20 MEQ IV SCH (04:01)
[2019-11-09] MEDS: LANSOPRAZOLE 30 MG SOLUTAB FEEDTUBE SCH (10:02)
[2019-11-09] MEDS: FOLIC ACID 1 MG TAB PO SCH (10:02)
[2019-11-09] MEDS: cefTRIAXone/NS 1 GM/50 ML 1 GM/50 ML BAG IV SCH (10:02)
[2019-11-09] MEDS: ASPIRIN 81 MG TAB CHEW PO SCH (10:02)
[2019-11-09] MEDS: allopurinoL 300 MG TAB PO SCH (10:02)
--- NOTE | 2019-11-09 10:53 | Progress Note ---
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 Absent: scleral icterus - ENT ENT exam: Present: mucous membranes dry - Neck Neck exam: Present: normal inspection - Respiratory Respiratory exam: Present: rhonchi, accessory muscle use, decreased breath sounds - Cardiovascular Cardiovascular Exam: Present: regular rate, normal rhythm. Absent: systolic murmur, diastolic murmur, rubs, gallop - GI/Abdominal GI/Abdominal exam: Present: soft, other (G tube site is clean with good hygiene). Absent: distended, tenderness, guarding, rebound, rigid - Extremities Exam Extremities exam: Present: normal inspection - Neurological Exam Neurological exam: Present: CN II-XII intact (as testable). Absent: motor sensory deficit - Psychiatric Psychiatric exam: Present: flat affect - Skin Skin exam: Present: warm, dry, intact, normal color. Absent: rash - Vital Signs Vital signs: Vital Signs - 12hr 11/09/19 11/09/19 11/09/19 00:00 00:09 04:34 Temperature 98.4 F 98.4 F Pulse Rate 102 H Respiratory 24 20 Rate Blood Pressure 159/86 140/76 11/09/19 08:53 Temperature Pulse Rate 96 H Respiratory Rate Blood Pressure - Lab 11/08/19 05:45 11/08/19 05:45 Most recent lab results ABG pH 7.351 pH Units (7.350-7.450) 11/04/19 10:20 ABG pCO2 31.4 mm Hg 11/04/19 10:20 ABG pO2 77.6 mm Hg (80.0-90.0) L 11/04/19 10:20 ABG HCO3 17.0 mmol/L (20.0-26.0) L 11/04/19 10:20 ABG O2 Saturation 95.1 % (95.0-99.0) 11/04/19 10:20 Calcium 9.2 mg/dL (8.4-10.2) 11/08/19 05:45 Magnesium 2.30 mg/dL (1.7-2.3) 11/04/19 09:10 Medications & Allergies - Medications Allergies/Adverse Reactions: Allergies No Known Allergies Allergy (Unverified 07/23/13 13:35) Home Medications: Home Medications Medication Instructions Recorded Confirmed Last Taken Type AtorvaSTATin [Lipitor] 40 mg PO QHS 09/09/19 11/04/19 Unknown History Cyanocobalamin [Vitamin B-12] 1,000 mcg IM QMONTH 09/09/19 11/04/19 Unknown History Finasteride [Proscar] 5 mg PO QHS 09/09/19 11/04/19 Unknown History Folic Acid 1 mg PO DAILY 09/09/19 11/04/19 Unknown History Vit-Fe Fumar-FA [ 1 tab PO DAILY 09/09/19 11/04/19 Unknown History Vitamin] allopurinoL [Zyloprim] 300 mg PO QDAY 09/09/19 11/04/19 Unknown History Lansoprazole Solutab [Prevacid 30 mg FEEDTUBE QDAY 30 Days 10/09/19 11/04/19 Unknown Rx Solutab] tab.rapdis Metoprolol Xl [Metoprolol 25 mg PO QDAY #30 tablet 10/09/19 11/04/19 Unknown Rx SUCCINATE ER TAB] Tamsulosin [Flomax] 0.4 mg PO QDAY #30 capsule 10/09/19 11/04/19 Unknown Rx Active Medications: Generic Name Dose Route Start Last Admin Trade Name Freq PRN Reason Stop Dose Admin Albuterol 2.5 mg 11/05/19 12:08 11/05/19 12:21 Proventil IH 2.5 mg Q4HRT PRN Administration Shortness Of Breath Allopurinol 300 mg 11/05/19 10:00 11/09/19 10:02 Zyloprim PO 300 mg QDAY AYUSH Administration Lipase/Protease/Amylase 1 each 11/05/19 12:00 Mayra Stacy 10,500 Unit FEEDTUBE PRN PRN For Clogged Feeding Tube Aspirin 81 mg 11/08/19 10:00 11/09/19 10:02 Baby Aspirin PO 81 mg QDAY AYUSH Administration Atorvastatin Calcium 40 mg 11/04/19 22:00 11/08/19 21:25 Lipitor PO 40 mg QHS AYUSH Administration Cyanocobalamin 1,000 mcg 11/04/19 19:00 11/04/19 23:10 Vitamin B-12 IM 1,000 mcg QMONTH AYUSH Administration Finasteride 5 mg 11/04/19 22:00 11/08/19 21:25 Proscar PO Not Given QHS AYUSH Folic Acid 1 mg 11/05/19 10:00 11/09/19 10:02 Folvite PO 1 mg DAILY AYUSH Administration Azithromycin 500 mg/ Sodium 250 mls @ 250 mls/hr 11/04/19 19:00 11/08/19 09:28 Chloride IV 11/10/19 10:59 250 mls/hr Q24HR AYUSH Administration Protocol Ceftriaxone Sodium 1 gm in 50 mls @ 100 mls/hr 11/04/19 19:00 11/09/19 10:02 Rocephin/Ns 1 Gm/50 Ml IV 11/10/19 10:29 100 mls/hr Q24HR AYUSH Administration Protocol Potassium Chloride 20 meq/ 1,010 mls @ 100 mls/hr 11/08/19 12:58 11/09/19 04:01 Dextrose IV 100 mls/hr DIRECT AYUSH Administration Lansoprazole 30 mg 11/05/19 10:00 11/09/19 10:02 Prevacid Solutab FEEDTUBE 30 mg QDAY AYUSH Administration Metoclopramide HCl 10 mg 11/04/19 19:58 Reglan IV Q6H PRN Nausea And Vomiting Ondansetron HCl 4 mg 11/04/19 19:59 11/06/19 01:10 Zofran IV 4 mg Q3HR PRN Administration Nausea And Vomiting Simple Syrup 15 ml 11/05/19 12:00 Simple Syrup FEEDTUBE PRN PRN Hypoglycemia Simple Syrup 30 ml 11/05/19 12:00 Simple Syrup FEEDTUBE PRN PRN Hypoglycemia Sodium Bicarbonate 325 mg 11/05/19 12:00 Sodium Bicarbonate FEEDTUBE PRN PRN For Clogged Feeding Tube
[2019-11-09] MEDS: AZITHROMYCIN 500 MG in SODIUM CHLORIDE 0.9% 250ML 250 ML IV SCH (11:01)
[2019-11-09 11:34] LABS: Calcium 9.6 mg/dL (8.4-10.2)
[2019-11-09] MEDS ORDERED: POTASSIUM CHLORIDE 20 MEQ PACKET FEEDTUBE ONE (14:02)
--- NOTE | 2019-11-09 14:10 | Progress Note ---
Assessment and Plan Assessment and plan: Patient is a 79 yo man from [facility] with a history of hypertension, CKD 3, Dementia, thrombocytopenia, hypernatremia, BPH, dyslipidemia, CVA with aphasia, who presented with acute onset of AMS They state that they were not informed of the patient's low blood pressure or if he had any recent history of fever. He arrived at this facility with respiratory difficulty. His blood pressure was 60 systolic. He was given fluid resuscitation and a central line was immediately placed. He was able to protect his airway and his pulse oximetry was adequate. He is noted to have a G-tube. He gives no history. He was transferred out of ICU 11/05/19. He was transfused 1 unit of PRBC on 10/10/19, then right TLC femoral line removed. Daughter Lynn, who is stated POA gives a history of having history of CVA with aphasia but was able to walk up until 09/10/2019 when he fell at [facility]. Patient stayed in this hospital from 09/10/19 until 10/09/2019 and was discharged to [facility]. During that hospitalization, he had PNA, GIB/coffee ground emesis s/p EGD that showed antral gastritis and moderate distal esophagitis, PEG placement on 10/03/19. * pCXR Impression: Resolving bilateral bronchopneumonia * CT head without contrast: No acute abnormality, extensive chronic ischemic changes and cerebral atrophy * CT abd/pelvis/chest without contrast due to ARF: pneumonia RUL/RLL/WIL/LLL Acute anemia with precipitous drop in H/H, tachycardia and borderline hypotension throughout day: get FOBT, hu CT abd/pelvis/chest, consult GI, transfuse 1 unit Acute Metabolic Encephalopathy with sodium level of 160, needing inpatient admission to address Severe hyponatremia: more free water needed, monitor bmp daily, consulted Nephrology Hypovolemic shock s/p right TLC femoral line: off Vasopressor, continue IVF, shock resolved ARF/CKD 3 due to ATN: consulted Renal, treated NSS but sodium level high. Acute hypoxic respiratory failure from prior pneumonia: continue iv abx Sepsis Multilobar pneumonia bilateral: additional abx Daughter Katharina adamant about full code per patient's advance directive Suspected Malnutrition, severe: consulted Health Plan Advisor Hypoglycemia: treated with dextrose, now resolved poor prognosis full code Disposition: d/c back to [place], but may need prior authorization to return to [place]. I called daughters Katharina [phone] with [place] speakerphone. They would like [facility] placement instead of returning to [facility] History Interval history: Patient seen and examained, follow up hypotenison, off vasopressor. 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 Physical - Physical exam Narrative exam: Gen: cachetic, chronic disable, moderate increase accessory muscles, moaning, NRB 100% o2 mask applied HEENT: anglican muscle wasting, NCAT,> resist eyes being examined, OP dry Neck: supple, no adenopathy, no thyromegaly, no JVD CVS/Heart: RRR, normal S1S2, pulses present bilaterally Chest/Lungs: diminished and coarse bs bilaterally, Symmetrical chest expansion, reduced air entry bilaterally GI/Abdomen: soft, NTND, good bowel sounds, no guarding or rebound /Bladder: no suprapubic tenderness, no CVA or paraspinal tenderness Extermity/Skin: atrophy tenar and hypotenar muscles, poor skin intergrity MSK: FROM x 3 Neuro: CN 2-12 grossly intact except speech, doesnt follow commands Psych: anxious - Constitutional Vitals: Temp Pulse Resp BP Pulse Ox 98.4 F 96 H 20 140/76 66 L 11/09/19 04:34 11/09/19 08:53 11/09/19 04:34 11/09/19 04:34 11/08/19 17:12 General appearance: Present: no acute distress, cachectic Results - Labs CBC & Chem 7: 11/08/19 05:45 11/09/19 10:55 Labs: Laboratory Last Values WBC 6.7 K/mm3 (4.5-11.0) 11/08/19 05:45 RBC 2.66 M/mm3 (3.65-5.03) L 11/08/19 05:45 Hgb 8.5 gm/dl (11.8-15.2) L 11/08/19 05:45 Hct 25.2 % (35.5-45.6) L 11/08/19 05:45 MCV 95 fl (84-94) H 11/08/19 05:45 MCH 32 pg (28-32) 11/08/19 05:45 MCHC 34 % (32-34) 11/08/19 05:45 RDW 17.3 % (13.2-15.2) H 11/08/19 05:45 Plt Count 78 K/mm3 (140-440) L 11/08/19 05:45 Add Manual Diff Complete 11/04/19 09:10 Total Counted 100 11/04/19 09:10 Seg Neuts % (Manual) 77.0 % (40.0-70.0) H 11/04/19 09:10 Band Neutrophils % 9.0 % 11/04/19 09:10 Lymphocytes % (Manual) 8.0 % (13.4-35.0) L 11/04/19 09:10 Reactive Lymphs % (Man) 0 % 11/04/19 09:10 Monocytes % (Manual) 3.0 % (0.0-7.3) 11/04/19 09:10 Eosinophils % (Manual) 2.0 % (0.0-4.3) 11/04/19 09:10 Basophils % (Manual) 0 % (0.0-1.8) 11/04/19 09:10 Metamyelocytes % 1.0 % 11/04/19 09:10 Myelocytes % 0 % 11/04/19 09:10 Promyelocytes % 0 % 11/04/19 09:10 Blast Cells % 0 % 11/04/19 09:10 Nucleated RBC % Not Reportable 11/04/19 09:10 Seg Neutrophils # Man 5.7 K/mm3 (1.8-7.7) 11/04/19 09:10 Band Neutrophils # 0.7 K/mm3 11/04/19 09:10 Lymphocytes # (Manual) 0.6 K/mm3 (1.2-5.4) L 11/04/19 09:10 Abs React Lymphs (Man) 0.0 K/mm3 11/04/19 09:10 Monocytes # (Manual) 0.2 K/mm3 (0.0-0.8) 11/04/19 09:10 Eosinophils # (Manual) 0.1 K/mm3 (0.0-0.4) 11/04/19 09:10 Basophils # (Manual) 0.0 K/mm3 (0.0-0.1) 11/04/19 09:10 Metamyelocytes # 0.1 K/mm3 11/04/19 09:10 Myelocytes # 0.0 K/mm3 11/04/19 09:10 Promyelocytes # 0.0 K/mm3 11/04/19 09:10 Blast Cells # 0.0 K/mm3 11/04/19 09:10 WBC Morphology Not Reportable 11/04/19 09:10 Hypersegmented Neuts Not Reportable 11/04/19 09:10 Hyposegmented Neuts Not Reportable 11/04/19 09:10 Hypogranular Neuts Not Reportable 11/04/19 09:10 Smudge Cells Not Reportable 11/04/19 09:10 Toxic Granulation Not Reportable 11/04/19 09:10 Toxic Vacuolation Not Reportable 11/04/19 09:10 Dohle Bodies Not Reportable 11/04/19 09:10 Pelger-Huet Anomaly Not Reportable 11/04/19 09:10 Kp Rods Not Reportable 11/04/19 09:10 Platelet Estimate Consistent w auto 11/04/19 09:10 Clumped Platelets Not Reportable 11/04/19 09:10 Plt Clumps, EDTA Not Reportable 11/04/19 09:10 Large Platelets Not Reportable 11/04/19 09:10 Giant Platelets Not Reportable 11/04/19 09:10 Platelet Satelliting Not Reportable 11/04/19 09:10 Plt Morphology Comment Not Reportable 11/04/19 09:10 RBC Morphology Not Reportable 11/04/19 09:10 Dimorphic RBCs Not Reportable 11/04/19 09:10 Polychromasia Not Reportable 11/04/19 09:10 Hypochromasia Not Reportable 11/04/19 09:10 Poikilocytosis Not Reportable 11/04/19 09:10 Anisocytosis Few 11/04/19 09:10 Microcytosis Not Reportable 11/04/19 09:10 Macrocytosis Not Reportable 11/04/19 09:10 Spherocytes Not Reportable 11/04/19 09:10 Pappenheimer Bodies Not Reportable 11/04/19 09:10 Sickle Cells Not Reportable 11/04/19 09:10 Target Cells Not Reportable 11/04/19 09:10 Tear Drop Cells Not Reportable 11/04/19 09:10 Ovalocytes Not Reportable 11/04/19 09:10 Helmet Cells Not Reportable 11/04/19 09:10 [place] Bodies Not Reportable 11/04/19 09:10 [place] Rings Not Reportable 11/04/19 09:10 Saman Cells Not Reportable 11/04/19 09:10 Bite Cells Not Reportable 11/04/19 09:10 Crenated Cell Not Reportable 11/04/19 09:10 Elliptocytes Not Reportable 11/04/19 09:10 Acanthocytes (Spur) Not Reportable 11/04/19 09:10 Rouleaux Not Reportable 11/04/19 09:10 Hemoglobin C Crystals Not Reportable 11/04/19 09:10 Schistocytes Not Reportable 11/04/19 09:10 Malaria parasites Not Reportable 11/04/19 09:10 Warren Bodies Not Reportable 11/04/19 09:10 Hem Pathologist Commnt No 11/04/19 09:10 PT 15.9 Sec. (12.2-14.9) H 11/04/19 09:10 INR 1.25 (0.87-1.13) H 11/04/19 09:10 APTT 27.7 Sec. (24.2-36.6) 11/04/19 09:10 ABG pH 7.351 pH Units (7.350-7.450) 11/04/19 10:20 ABG pCO2 31.4 mm Hg 11/04/19 10:20 ABG pO2 77.6 mm Hg (80.0-90.0) L 11/04/19 10:20 ABG HCO3 17.0 mmol/L (20.0-26.0) L 11/04/19 10:20 ABG O2 Saturation 95.1 % (95.0-99.0) 11/04/19 10:20 ABG O2 Content 12.7 (0.0-44) 11/04/19 10:20 ABG Base Excess -7.6 mmol/L (-2.0-3.0) L 11/04/19 10:20 ABG Hemoglobin 9.7 gm/dl (14.0-18.0) L 11/04/19 10:20 ABG Carboxyhemoglobin 1.7 % (0.0-5.0) 11/04/19 10:20 ABG Methemoglobin 0.6 % (0.0-1.5) 11/04/19 10:20 Oxyhemoglobin 92.9 % (95.0-99.0) L 11/04/19 10:20 FiO2 10 % 11/04/19 10:20 Sodium 145 mmol/L (137-145) 11/09/19 10:55 Potassium 3.5 mmol/L (3.6-5.0) L 11/09/19 10:55 Chloride 106.7 mmol/L (98-107) 11/09/19 10:55 Carbon Dioxide 23 mmol/L (22-30) 11/09/19 10:55 Anion Gap 19 mmol/L 11/09/19 10:55 BUN 54 mg/dL (9-20) H 11/09/19 10:55 Creatinine 1.7 mg/dL (0.8-1.5) H 11/09/19 10:55 Estimated GFR 47 ml/min 11/09/19 10:55 BUN/Creatinine Ratio 32 % 11/09/19 10:55 Glucose 144 mg/dL (75-100) H 11/09/19 10:55 POC Glucose 121 (70-105) H 11/07/19 12:14 Lactic Acid 2.70 mmol/L (0.7-2.0) H* 11/05/19 07:45 Calcium 9.6 mg/dL (8.4-10.2) 11/09/19 10:55 Magnesium 2.30 mg/dL (1.7-2.3) 11/04/19 09:10 Total Bilirubin 0.40 mg/dL (0.1-1.2) 11/04/19 09:10 Direct Bilirubin < 0.2 mg/dL (0-0.2) 11/04/19 09:10 Indirect Bilirubin 0.2 mg/dL 11/04/19 09:10 AST 67 units/L (5-40) H 11/04/19 09:10 ALT 71 units/L (7-56) H 11/04/19 09:10 Alkaline Phosphatase 90 units/L (35-129) 11/04/19 09:10 Total Creatine Kinase 815 units/L (55-170) H 11/04/19 09:10 CK-MB (CK-2) 14.7 ng/mL (0.0-4.0) H 11/04/19 09:10 CK-MB (CK-2) Rel Index 1.8 (0-4) 11/04/19 09:10 Troponin T 0.198 ng/mL (0.00-0.029) H* 11/06/19 00:52 NT-Pro-B Natriuret Pep 554.4 pg/mL (0-900) 11/04/19 09:10 Total Protein 7.6 g/dL (6.3-8.2) 11/04/19 09:10 Albumin 2.9 g/dL (3.9-5) L 11/04/19 09:10 Albumin/Globulin Ratio 0.6 % 11/04/19 09:10 Triglycerides 56 mg/dL (2-149) 11/04/19 09:10 Cholesterol 96 mg/dL (50-199) 11/04/19 09:10 LDL Cholesterol Direct 59 mg/dL (50-130) 11/04/19 09:10 HDL Cholesterol 38 mg/dL (40-59) L 11/04/19 09:10 Cholesterol/HDL Ratio 2.52 % 11/04/19 09:10 Urine Color Yellow (Yellow) 11/05/19 09:26 Urine Turbidity Clear (Clear) 11/05/19 09:26 Urine pH 8.0 (5.0-7.0) H 11/05/19 09:26 Ur Specific [place] 1.011 (1.003-1.030) 11/05/19 09:26 Urine Protein <15 mg/dl mg/dL (Negative) 11/05/19 09:26 Urine Glucose (UA) Neg mg/dL (Negative) 11/05/19 09:26 Urine Ketones Neg mg/dL (Negative) 11/05/19 09:26 Urine Blood Lg (Negative) 11/05/19 09:26 Urine Nitrite Neg (Negative) 11/05/19 09:26 Urine Bilirubin Neg (Negative) 11/05/19 09:26 Urine Urobilinogen < 2.0 mg/dL (<2.0) 11/05/19 09:26 Ur Leukocyte Esterase Neg (Negative) 11/05/19 09:26 Urine WBC (Auto) 1.0 /HPF (0.0-6.0) 11/05/19 09:26 Urine RBC (Auto) < 1.0 /HPF (0.0-6.0) 11/05/19 09:26 U Epithel Cells (Auto) < 1.0 /HPF (0-13.0) 11/05/19 09:26 Urine Bacteria (Auto) 1+ /HPF (Negative) 11/05/19 09:26 Blood Type A POSITIVE 11/06/19 20:34 Antibody Screen Negative 11/06/19 20:34 Crossmatch See Detail 11/06/19 20:34 Active Medications - Current Medications Current Medications: Generic Name Dose Route Start Last Admin Trade Name Freq PRN Reason Stop Dose Admin Albuterol 2.5 mg 11/05/19 12:08 11/05/19 12:21 Proventil IH 2.5 mg Q4HRT PRN Administration Shortness Of Breath Allopurinol 300 mg 11/05/19 10:00 11/09/19 10:02 Zyloprim PO 300 mg QDAY AYUSH Administration Lipase/Protease/Amylase 1 each 11/05/19 12:00 Pancreaze 10,500 Unit FEEDTUBE PRN PRN For Clogged Feeding Tube Aspirin 81 mg 11/08/19 10:00 11/09/19 10:02 Baby Aspirin PO 81 mg QDAY AYUSH Administration Atorvastatin Calcium 40 mg 11/04/19 22:00 11/08/19 21:25 Lipitor PO 40 mg QHS AYUSH Administration Cyanocobalamin 1,000 mcg 11/04/19 19:00 11/04/19 23:10 Vitamin B-12 IM 1,000 mcg QMONTH AYUSH Administration Finasteride 5 mg 11/04/19 22:00 11/08/19 21:25 Proscar PO Not Given QHS AYUSH Folic Acid 1 mg 11/05/19 10:00 11/09/19 10:02 Folvite PO 1 mg DAILY AYUSH Administration Azithromycin 500 mg/ Sodium 250 mls @ 250 mls/hr 11/04/19 19:00 11/09/19 11:01 Chloride IV 11/10/19 10:59 250 mls/hr Q24HR AYUSH Administration Protocol Ceftriaxone Sodium 1 gm in 50 mls @ 100 mls/hr 11/04/19 19:00 11/09/19 10:02 Rocephin/Ns 1 Gm/50 Ml IV 11/10/19 10:29 100 mls/hr Q24HR AYUSH Administration Protocol Potassium Chloride 20 meq/ 1,010 mls @ 100 mls/hr 11/08/19 12:58 11/09/19 04:01 Dextrose IV 100 mls/hr DIRECT AYUSH Administration Lansoprazole 30 mg 11/05/19 10:00 11/09/19 10:02 Prevacid Solutab FEEDTUBE 30 mg QDAY AYUSH Administration Metoclopramide HCl 10 mg 11/04/19 19:58 Reglan IV Q6H PRN Nausea And Vomiting Ondansetron HCl 4 mg 11/04/19 19:59 11/06/19 01:10 Zofran IV 4 mg Q3HR PRN Administration Nausea And Vomiting Simple Syrup 15 ml 11/05/19 12:00 Simple Syrup FEEDTUBE PRN PRN Hypoglycemia Simple Syrup 30 ml 11/05/19 12:00 Simple Syrup FEEDTUBE PRN PRN Hypoglycemia Sodium Bicarbonate 325 mg 11/05/19 12:00 Sodium Bicarbonate FEEDTUBE PRN PRN For Clogged Feeding Tube Nutrition/Malnutrition Assess - Dietary Evaluation Nutrition/Malnutrition Findings: Nutrition Notes Start: 11/05/19 08:23 Freq: Status: Active Protocol: Document 11/07/19 10:57 AP (Rec: 11/07/19 11:05 AP [id number]) Co-Sign 11/07/19 10:57 LP Nutrition Notes Initial or Follow up Reassessment Other Pertinent Diagnosis AMS, pneu, acute encephalopathy, dyslipidemia, septic shock, hypernatremia Current Diet Nepro 1.8 at 35ml/hr Labs/Tests BG 112 Cr 2.5 Na 155 BUN 74 Pertinent Medications Reviewed Height 5 ft 7 in Weight 96.434 kg [place] Body Weight (kg) 67.27 BMI 33.3 Subjective/Other Information F/U for TF intiation. Pt RNMary stated Nepro is running at goal (35ml/hr) with no residuals, pt tolerating. Continuing free flush at 250ml q 4 until hypernatremia is resolved. Percent of energy/protein needs met: 110%/105% Burn Absent Trauma Absent GI Symptoms None Difficulty In Swallowing Current % PO Fair (50-74%) Minimum of two criteria No Reduced [place]ger Strength Measurably Reduced (severe) #1 Nutrition Diagnosis Inadequate oral intake Diagnosis Progress(for reassessment Continues documentation) Is patient on ventilator? No Is Patient Ambulatory and/or Out of Bed No REE-([place]-St. Jeor-confined to bed) 1966.080 Kcal/Kg value to use for calculation 15 Approximate Energy Requirements Using 1447 kcal/Kg Calculation Used for Recommendations Kcal/kg Additional Notes Pro: 49-65 g (0.6-0.8 g/kg AdjBW 82 kg) Fluid 1ml/kcal or per MD Nutrition Intervention Change Diet Order: Continue Nepro 1.8 at 35ml/hr Nutrition Support: Nepro 1.8 at 35 ml/hr with 250 ml water flush q4h until hypernatremia resolves. Once hypernatremia resolved 150 ml water flush q4h. Kcal 1,512 Protein (gm) 68 Fluid (mL) 610 Goal #1 Pt continue to meet >80% kcal/ PRO needs via TF. Anticipated Discharge Needs: cannot determine at this time Follow-Up By: 11/13/19 Additional Comments FU for TF tolerance
[2019-11-09] MEDS: FINASTERIDE 5 MG TAB PO SCH (22:34)
[2019-11-10 06:57] LABS: Calcium 9.4 mg/dL (8.4-10.2)
[2019-11-10] MEDS: SODIUM CHLORIDE 0.45% 1000 ML 1,000 ML IV SCH ×2 (09:35→19:35)
[2019-11-10] MEDS: allopurinoL 300 MG TAB PO SCH (09:42)
[2019-11-10] MEDS: ASPIRIN 81 MG TAB CHEW PO SCH (09:42)
[2019-11-10] MEDS: FOLIC ACID 1 MG TAB PO SCH (09:42)
[2019-11-10] MEDS: LANSOPRAZOLE 30 MG SOLUTAB FEEDTUBE SCH (09:42)
[2019-11-10] MEDS: cefTRIAXone/NS 1 GM/50 ML 1 GM/50 ML BAG IV SCH (09:43)
[2019-11-10] MEDS: AZITHROMYCIN 500 MG in SODIUM CHLORIDE 0.9% 250ML 250 ML IV SCH (10:40)
--- NOTE | 2019-11-10 14:29 | Progress Note ---
Assessment and Plan Assessment and plan: Patient is a 79 yo man from [facility] with a history of hypertension, CKD 3, Dementia, thrombocytopenia, hypernatremia, BPH, dyslipidemia, CVA with aphasia, who presented with acute onset of AMS They state that they were not informed of the patient's low blood pressure or if he had any recent history of fever. He arrived at this facility with respiratory difficulty. His blood pressure was 60 systolic. He was given fluid resuscitation and a central line was immediately placed. He was able to protect his airway and his pulse oximetry was adequate. He is noted to have a G-tube. He gives no history. He was transferred out of ICU 11/05/19. He was transfused 1 unit of PRBC on 10/10/19, then right TLC femoral line removed. Daughter Lynn, who is stated POA gives a history of having history of CVA with aphasia but was able to walk up until 09/10/2019 when he fell at [facility]. Patient stayed in this hospital from 09/10/19 until 10/09/2019 and was discharged to [facility]. During that hospitalization, he had PNA, GIB/coffee ground emesis s/p EGD that showed antral gastritis and moderate distal esophagitis, PEG placement on 10/03/19. * pCXR Impression: Resolving bilateral bronchopneumonia * CT head without contrast: No acute abnormality, extensive chronic ischemic changes and cerebral atrophy * CT abd/pelvis/chest without contrast due to ARF: pneumonia RUL/RLL/WIL/LLL Acute anemia with precipitous drop in H/H, transfused 1 unit PRBC on resolvd: FOBT Acute Metabolic Encephalopathy with sodium level of 160, needing inpatient admission to address Severe hyponatremia: more free water needed, monitor bmp daily, consulted Nephrology Hypovolemic shock s/p right TLC femoral line: off Vasopressor, continue IVF, shock resolved ARF/CKD 3 due to ATN: consulted Renal, treated NSS but sodium level high. Acute hypoxic respiratory failure from prior pneumonia: continue iv abx Sepsis Multilobar pneumonia bilateral: additional abx Daughter Katharina adamant about full code per patient's advance directive Suspected Malnutrition, severe: consulted Bun Icer Hypoglycemia: treated with dextrose, now resolved poor prognosis full code Disposition: d/c back to [place], either [facility] (?pre-auth needed) vs [facility] (even better). Case management will let me know what family decides History Interval history: Patient seen and examained, follow up hypotenison, off vasopressor. 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 Physical - Physical exam Narrative exam: Gen: cachetic, chronic disable, moderate increase accessory muscles, moaning, NRB 100% o2 mask applied HEENT: lutheran muscle wasting, NCAT,> resist eyes being examined, OP dry Neck: supple, no adenopathy, no thyromegaly, no JVD CVS/Heart: RRR, normal S1S2, pulses present bilaterally Chest/Lungs: diminished and coarse bs bilaterally, Symmetrical chest expansion, reduced air entry bilaterally GI/Abdomen: soft, NTND, good bowel sounds, no guarding or rebound /Bladder: no suprapubic tenderness, no CVA or paraspinal tenderness Extermity/Skin: atrophy tenar and hypotenar muscles, poor skin intergrity MSK: FROM x 3 Neuro: CN 2-12 grossly intact except speech, doesnt follow commands Psych: anxious - Constitutional Vitals: Temp Pulse Resp BP Pulse Ox 98.6 F 109 H 18 128/73 97 11/10/19 12:41 11/10/19 12:41 11/10/19 12:41 11/10/19 12:41 11/10/19 12:41 General appearance: Present: no acute distress, cachectic Results - Labs CBC & Chem 7: 11/08/19 05:45 11/10/19 05:47 Labs: Laboratory Last Values WBC 6.7 K/mm3 (4.5-11.0) 11/08/19 05:45 RBC 2.66 M/mm3 (3.65-5.03) L 11/08/19 05:45 Hgb 8.5 gm/dl (11.8-15.2) L 11/08/19 05:45 Hct 25.2 % (35.5-45.6) L 11/08/19 05:45 MCV 95 fl (84-94) H 11/08/19 05:45 MCH 32 pg (28-32) 11/08/19 05:45 MCHC 34 % (32-34) 11/08/19 05:45 RDW 17.3 % (13.2-15.2) H 11/08/19 05:45 Plt Count 78 K/mm3 (140-440) L 11/08/19 05:45 Add Manual Diff Complete 11/04/19 09:10 Total Counted 100 11/04/19 09:10 Seg Neuts % (Manual) 77.0 % (40.0-70.0) H 11/04/19 09:10 Band Neutrophils % 9.0 % 11/04/19 09:10 Lymphocytes % (Manual) 8.0 % (13.4-35.0) L 11/04/19 09:10 Reactive Lymphs % (Man) 0 % 11/04/19 09:10 Monocytes % (Manual) 3.0 % (0.0-7.3) 11/04/19 09:10 Eosinophils % (Manual) 2.0 % (0.0-4.3) 11/04/19 09:10 Basophils % (Manual) 0 % (0.0-1.8) 11/04/19 09:10 Metamyelocytes % 1.0 % 11/04/19 09:10 Myelocytes % 0 % 11/04/19 09:10 Promyelocytes % 0 % 11/04/19 09:10 Blast Cells % 0 % 11/04/19 09:10 Nucleated RBC % Not Reportable 11/04/19 09:10 Seg Neutrophils # Man 5.7 K/mm3 (1.8-7.7) 11/04/19 09:10 Band Neutrophils # 0.7 K/mm3 11/04/19 09:10 Lymphocytes # (Manual) 0.6 K/mm3 (1.2-5.4) L 11/04/19 09:10 Abs React Lymphs (Man) 0.0 K/mm3 11/04/19 09:10 Monocytes # (Manual) 0.2 K/mm3 (0.0-0.8) 11/04/19 09:10 Eosinophils # (Manual) 0.1 K/mm3 (0.0-0.4) 11/04/19 09:10 Basophils # (Manual) 0.0 K/mm3 (0.0-0.1) 11/04/19 09:10 Metamyelocytes # 0.1 K/mm3 11/04/19 09:10 Myelocytes # 0.0 K/mm3 11/04/19 09:10 Promyelocytes # 0.0 K/mm3 11/04/19 09:10 Blast Cells # 0.0 K/mm3 11/04/19 09:10 WBC Morphology Not Reportable 11/04/19 09:10 Hypersegmented Neuts Not Reportable 11/04/19 09:10 Hyposegmented Neuts Not Reportable 11/04/19 09:10 Hypogranular Neuts Not Reportable 11/04/19 09:10 Smudge Cells Not Reportable 11/04/19 09:10 Toxic Granulation Not Reportable 11/04/19 09:10 Toxic Vacuolation Not Reportable 11/04/19 09:10 Dohle Bodies Not Reportable 11/04/19 09:10 Pelger-Huet Anomaly Not Reportable 11/04/19 09:10 Kp Rods Not Reportable 11/04/19 09:10 Platelet Estimate Consistent w auto 11/04/19 09:10 Clumped Platelets Not Reportable 11/04/19 09:10 Plt Clumps, EDTA Not Reportable 11/04/19 09:10 Large Platelets Not Reportable 11/04/19 09:10 Giant Platelets Not Reportable 11/04/19 09:10 Platelet Satelliting Not Reportable 11/04/19 09:10 Plt Morphology Comment Not Reportable 11/04/19 09:10 RBC Morphology Not Reportable 11/04/19 09:10 Dimorphic RBCs Not Reportable 11/04/19 09:10 Polychromasia Not Reportable 11/04/19 09:10 Hypochromasia Not Reportable 11/04/19 09:10 Poikilocytosis Not Reportable 11/04/19 09:10 Anisocytosis Few 11/04/19 09:10 Microcytosis Not Reportable 11/04/19 09:10 Macrocytosis Not Reportable 11/04/19 09:10 Spherocytes Not Reportable 11/04/19 09:10 Pappenheimer Bodies Not Reportable 11/04/19 09:10 Sickle Cells Not Reportable 11/04/19 09:10 Target Cells Not Reportable 11/04/19 09:10 Tear Drop Cells Not Reportable 11/04/19 09:10 Ovalocytes Not Reportable 11/04/19 09:10 Helmet Cells Not Reportable 11/04/19 09:10 [place] Bodies Not Reportable 11/04/19 09:10 Nelson Rings Not Reportable 11/04/19 09:10 Saman Cells Not Reportable 11/04/19 09:10 Bite Cells Not Reportable 11/04/19 09:10 Crenated Cell Not Reportable 11/04/19 09:10 Elliptocytes Not Reportable 11/04/19 09:10 Acanthocytes (Spur) Not Reportable 11/04/19 09:10 Rouleaux Not Reportable 11/04/19 09:10 Hemoglobin C Crystals Not Reportable 11/04/19 09:10 Schistocytes Not Reportable 11/04/19 09:10 Malaria parasites Not Reportable 11/04/19 09:10 Warren Bodies Not Reportable 11/04/19 09:10 Hem Pathologist Commnt No 11/04/19 09:10 PT 15.9 Sec. (12.2-14.9) H 11/04/19 09:10 INR 1.25 (0.87-1.13) H 11/04/19 09:10 APTT 27.7 Sec. (24.2-36.6) 11/04/19 09:10 ABG pH 7.351 pH Units (7.350-7.450) 11/04/19 10:20 ABG pCO2 31.4 mm Hg 11/04/19 10:20 ABG pO2 77.6 mm Hg (80.0-90.0) L 11/04/19 10:20 ABG HCO3 17.0 mmol/L (20.0-26.0) L 11/04/19 10:20 ABG O2 Saturation 95.1 % (95.0-99.0) 11/04/19 10:20 ABG O2 Content 12.7 (0.0-44) 11/04/19 10:20 ABG Base Excess -7.6 mmol/L (-2.0-3.0) L 11/04/19 10:20 ABG Hemoglobin 9.7 gm/dl (14.0-18.0) L 11/04/19 10:20 ABG Carboxyhemoglobin 1.7 % (0.0-5.0) 11/04/19 10:20 ABG Methemoglobin 0.6 % (0.0-1.5) 11/04/19 10:20 Oxyhemoglobin 92.9 % (95.0-99.0) L 11/04/19 10:20 FiO2 10 % 11/04/19 10:20 Sodium 146 mmol/L (137-145) H 11/10/19 05:47 Potassium 3.7 mmol/L (3.6-5.0) 11/10/19 05:47 Chloride 107.5 mmol/L (98-107) H 11/10/19 05:47 Carbon Dioxide 24 mmol/L (22-30) 11/10/19 05:47 Anion Gap 18 mmol/L 11/10/19 05:47 BUN 48 mg/dL (9-20) H 11/10/19 05:47 Creatinine 1.8 mg/dL (0.8-1.5) H 11/10/19 05:47 Estimated GFR 44 ml/min 11/10/19 05:47 BUN/Creatinine Ratio 27 % 11/10/19 05:47 Glucose 139 mg/dL (75-100) H 11/10/19 05:47 POC Glucose 121 (70-105) H 11/07/19 12:14 Lactic Acid 2.70 mmol/L (0.7-2.0) H* 11/05/19 07:45 Calcium 9.4 mg/dL (8.4-10.2) 11/10/19 05:47 Magnesium 2.30 mg/dL (1.7-2.3) 11/04/19 09:10 Total Bilirubin 0.40 mg/dL (0.1-1.2) 11/04/19 09:10 Direct Bilirubin < 0.2 mg/dL (0-0.2) 11/04/19 09:10 Indirect Bilirubin 0.2 mg/dL 11/04/19 09:10 AST 67 units/L (5-40) H 11/04/19 09:10 ALT 71 units/L (7-56) H 11/04/19 09:10 Alkaline Phosphatase 90 units/L (35-129) 11/04/19 09:10 Total Creatine Kinase 815 units/L (55-170) H 11/04/19 09:10 CK-MB (CK-2) 14.7 ng/mL (0.0-4.0) H 11/04/19 09:10 CK-MB (CK-2) Rel Index 1.8 (0-4) 11/04/19 09:10 Troponin T 0.198 ng/mL (0.00-0.029) H* 11/06/19 00:52 NT-Pro-B Natriuret Pep 554.4 pg/mL (0-900) 11/04/19 09:10 Total Protein 7.6 g/dL (6.3-8.2) 11/04/19 09:10 Albumin 2.9 g/dL (3.9-5) L 11/04/19 09:10 Albumin/Globulin Ratio 0.6 % 11/04/19 09:10 Triglycerides 56 mg/dL (2-149) 11/04/19 09:10 Cholesterol 96 mg/dL (50-199) 11/04/19 09:10 LDL Cholesterol Direct 59 mg/dL (50-130) 11/04/19 09:10 HDL Cholesterol 38 mg/dL (40-59) L 11/04/19 09:10 Cholesterol/HDL Ratio 2.52 % 11/04/19 09:10 Urine Color Yellow (Yellow) 11/05/19 09:26 Urine Turbidity Clear (Clear) 11/05/19 09:26 Urine pH 8.0 (5.0-7.0) H 11/05/19 09:26 Ur Specific [place] 1.011 (1.003-1.030) 11/05/19 09:26 Urine Protein <15 mg/dl mg/dL (Negative) 11/05/19 09:26 Urine Glucose (UA) Neg mg/dL (Negative) 11/05/19 09:26 Urine Ketones Neg mg/dL (Negative) 11/05/19 09:26 Urine Blood Lg (Negative) 11/05/19 09:26 Urine Nitrite Neg (Negative) 11/05/19 09:26 Urine Bilirubin Neg (Negative) 11/05/19 09:26 Urine Urobilinogen < 2.0 mg/dL (<2.0) 11/05/19 09:26 Ur Leukocyte Esterase Neg (Negative) 11/05/19 09:26 Urine WBC (Auto) 1.0 /HPF (0.0-6.0) 11/05/19 09:26 Urine RBC (Auto) < 1.0 /HPF (0.0-6.0) 11/05/19 09:26 U Epithel Cells (Auto) < 1.0 /HPF (0-13.0) 11/05/19 09:26 Urine Bacteria (Auto) 1+ /HPF (Negative) 11/05/19 09:26 Blood Type A POSITIVE 11/06/19 20:34 Antibody Screen Negative 11/06/19 20:34 Crossmatch See Detail 11/06/19 20:34 Active Medications - Current Medications Current Medications: Generic Name Dose Route Start Last Admin Trade Name Freq PRN Reason Stop Dose Admin Albuterol 2.5 mg 11/05/19 12:08 11/05/19 12:21 Proventil IH 2.5 mg Q4HRT PRN Administration Shortness Of Breath Allopurinol 300 mg 11/05/19 10:00 11/10/19 09:42 Zyloprim PO 300 mg QDAY AYUSH Administration Lipase/Protease/Amylase 1 each 11/05/19 12:00 Pancrejenn Stacy 10,500 Unit FEEDTUBE PRN PRN For Clogged Feeding Tube Aspirin 81 mg 11/08/19 10:00 11/10/19 09:42 Baby Aspirin PO 81 mg QDAY AYUSH Administration Atorvastatin Calcium 40 mg 11/04/19 22:00 11/09/19 22:34 Lipitor PO 40 mg QHS AYUSH Administration Cyanocobalamin 1,000 mcg 11/04/19 19:00 11/04/19 23:10 Vitamin B-12 IM 1,000 mcg QMONTH AYUSH Administration Finasteride 5 mg 11/04/19 22:00 11/09/19 22:34 Proscar PO 5 mg QHS AYUSH Administration Folic Acid 1 mg 11/05/19 10:00 11/10/19 09:42 Folvite PO 1 mg DAILY AYUSH Administration Sodium Chloride 1,000 mls @ 150 mls/hr 11/10/19 09:00 11/10/19 09:35 Nacl 0.45% 1000 Ml IV 150 mls/hr DIRECT AYUSH Administration Lansoprazole 30 mg 11/05/19 10:00 11/10/19 09:42 Prevacid Solutab FEEDTUBE 30 mg QDAY AYUSH Administration Metoclopramide HCl 10 mg 11/04/19 19:58 Reglan IV Q6H PRN Nausea And Vomiting Ondansetron HCl 4 mg 11/04/19 19:59 11/06/19 01:10 Zofran IV 4 mg Q3HR PRN Administration Nausea And Vomiting Simple Syrup 15 ml 11/05/19 12:00 Simple Syrup FEEDTUBE PRN PRN Hypoglycemia Simple Syrup 30 ml 11/05/19 12:00 Simple Syrup FEEDTUBE PRN PRN Hypoglycemia Sodium Bicarbonate 325 mg 11/05/19 12:00 Sodium Bicarbonate FEEDTUBE PRN PRN For Clogged Feeding Tube Nutrition/Malnutrition Assess - Dietary Evaluation Nutrition/Malnutrition Findings: Nutrition Notes Start: 11/05/19 08:23 Freq: Status: Active Protocol: Document 11/07/19 10:57 AP (Rec: 11/07/19 11:05 AP [id number]) Co-Sign 11/07/19 10:57 LP Nutrition Notes Initial or Follow up Reassessment Other Pertinent Diagnosis AMS, pneu, acute encephalopathy, dyslipidemia, septic shock, hypernatremia Current Diet Nepro 1.8 at 35ml/hr Labs/Tests BG 112 Cr 2.5 Na 155 BUN 74 Pertinent Medications Reviewed Height 5 ft 7 in Weight 96.434 kg [place] Body Weight (kg) 67.27 BMI 33.3 Subjective/Other Information F/U for TF intiation. Pt RNMary stated Nepro is running at goal (35ml/hr) with no residuals, pt tolerating. Continuing free flush at 250ml q 4 until hypernatremia is resolved. Percent of energy/protein needs met: 110%/105% Burn Absent Trauma Absent GI Symptoms None Difficulty In Swallowing Current % PO Fair (50-74%) Minimum of two criteria No Reduced Renewable Energy Engineer Strength Measurably Reduced (severe) #1 Nutrition Diagnosis Inadequate oral intake Diagnosis Progress(for reassessment Continues documentation) Is patient on ventilator? No Is Patient Ambulatory and/or Out of Bed No REE-([facility]-confined to bed) 1966.080 Kcal/Kg value to use for calculation 15 Approximate Energy Requirements Using 1447 kcal/Kg Calculation Used for Recommendations Kcal/kg Additional Notes Pro: 49-65 g (0.6-0.8 g/kg AdjBW 82 kg) Fluid 1ml/kcal or per MD Nutrition Intervention Change Diet Order: Continue Nepro 1.8 at 35ml/hr Nutrition Support: Nepro 1.8 at 35 ml/hr with 250 ml water flush q4h until hypernatremia resolves. Once hypernatremia resolved 150 ml water flush q4h. Kcal 1,512 Protein (gm) 68 Fluid (mL) 610 Goal #1 Pt continue to meet >80% kcal/ PRO needs via TF. Anticipated Discharge Needs: cannot determine at this time Follow-Up By: 11/13/19 Additional Comments FU for TF tolerance
--- NOTE | 2019-11-10 20:02 | Progress Note ---
Assessment and Plan - Patient Problems (1) JULIA (acute kidney injury) Current Visit: No Status: Acute Plan to address problem: acute kidney injury current creatinine 1.8mg/dl baseline 1.3 etiology 2/2 volume depletion continue IVf. (2) Dementia Current Visit: No Status: Acute Plan to address problem: Dementia -continue fall precautions. (3) Hypernatremia Current Visit: No Status: Acute Plan to address problem: Hypernatremia Change to 0.45% saline improve access to free water. (4) HTN (hypertension) Current Visit: Yes Status: Acute Qualifiers: Hypertension type: essential hypertension Qualified Code(s): I10 - Essential (primary) hypertension Plan to address problem: Htn : controlled. continue current medicatons. Subjective Principal diagnosis: julia on ckd Interval history: 79 year old with medical history signficant for Dementia , AMS admitted with JULIA Patient seen today has impaired access to free water no shortness of breath. Objective - Vital Signs Vital signs: Vital Signs - 12hr 11/10/19 11/10/19 11/10/19 08:46 10:00 12:41 Temperature 98.8 F 98.6 F Pulse Rate 107 H 104 H 109 H Pulse Rate [ 104 H From Monitor] Respiratory 18 18 18 Rate Blood Pressure Blood Pressure 138/73 128/73 [Left] O2 Sat by Pulse 98 97 Oximetry 11/10/19 17:03 Temperature 97.9 F Pulse Rate 106 H Pulse Rate [ From Monitor] Respiratory 18 Rate Blood Pressure 142/74 Blood Pressure [Left] O2 Sat by Pulse 100 Oximetry - General Appearance General appearance: chronically ill, frail EENT: ATNC, PERRL Neck: no JVD Respiratory: Present: Clear to Ascultation Cardiology: regular, S1S2 Gastrointestinal: normal, normoactive bowel sounds Integumentary: no rash Neurologic: disoriented, CN 3-12 intact Psychiatric: mood/affect appropriate - Lab 11/08/19 05:45 11/10/19 05:47 Most recent lab results ABG pH 7.351 pH Units (7.350-7.450) 11/04/19 10:20 ABG pCO2 31.4 mm Hg 11/04/19 10:20 ABG pO2 77.6 mm Hg (80.0-90.0) L 11/04/19 10:20 ABG HCO3 17.0 mmol/L (20.0-26.0) L 11/04/19 10:20 ABG O2 Saturation 95.1 % (95.0-99.0) 11/04/19 10:20 Calcium 9.4 mg/dL (8.4-10.2) 11/10/19 05:47 Magnesium 2.30 mg/dL (1.7-2.3) 11/04/19 09:10 - Imaging Chest x-ray: image reviewed (cxr reviewed no edema) Medications & Allergies - Medications Allergies/Adverse Reactions: Allergies No Known Allergies Allergy (Unverified 07/23/13 13:35) Home Medications: Home Medications Medication Instructions Recorded Confirmed Last Taken Type AtorvaSTATin [Lipitor] 40 mg PO QHS 09/09/19 11/04/19 Unknown History Cyanocobalamin [Vitamin B-12] 1,000 mcg IM QMONTH 09/09/19 11/04/19 Unknown History Finasteride [Proscar] 5 mg PO QHS 09/09/19 11/04/19 Unknown History Folic Acid 1 mg PO DAILY 09/09/19 11/04/19 Unknown History Vit-Fe Fumar-FA [ 1 tab PO DAILY 09/09/19 11/04/19 Unknown History Vitamin] allopurinoL [Zyloprim] 300 mg PO QDAY 09/09/19 11/04/19 Unknown History Lansoprazole Solutab [Prevacid 30 mg FEEDTUBE QDAY 30 Days 10/09/19 11/04/19 Unknown Rx Solutab] tab.rapdis Metoprolol Xl [Metoprolol 25 mg PO QDAY #30 tablet 10/09/19 11/04/19 Unknown Rx SUCCINATE ER TAB] Tamsulosin [Flomax] 0.4 mg PO QDAY #30 capsule 10/09/19 11/04/19 Unknown Rx Active Medications: Generic Name Dose Route Start Last Admin Trade Name Freq PRN Reason Stop Dose Admin Albuterol 2.5 mg 11/05/19 12:08 11/05/19 12:21 Proventil IH 2.5 mg Q4HRT PRN Administration Shortness Of Breath Allopurinol 300 mg 11/05/19 10:00 11/10/19 09:42 Zyloprim PO 300 mg QDAY AYUSH Administration Lipase/Protease/Amylase 1 each 11/05/19 12:00 Mayra Stacy 10,500 Unit FEEDTUBE PRN PRN For Clogged Feeding Tube Aspirin 81 mg 11/08/19 10:00 11/10/19 09:42 Baby Aspirin PO 81 mg QDAY AYUSH Administration Atorvastatin Calcium 40 mg 11/04/19 22:00 11/09/19 22:34 Lipitor PO 40 mg QHS AYUSH Administration Bisacodyl 10 mg 11/10/19 14:24 Dulcolax AL QDAY PRN Constipation Cyanocobalamin 1,000 mcg 11/04/19 19:00 11/04/19 23:10 Vitamin B-12 IM 1,000 mcg QMONTH AYUSH Administration Finasteride 5 mg 11/04/19 22:00 11/09/19 22:34 Proscar PO 5 mg QHS AYUSH Administration Folic Acid 1 mg 11/05/19 10:00 11/10/19 09:42 Folvite PO 1 mg DAILY AYUSH Administration Sodium Chloride 1,000 mls @ 150 mls/hr 11/10/19 09:00 11/10/19 19:35 Nacl 0.45% 1000 Ml IV 150 mls/hr DIRECT AYUSH Administration Lansoprazole 30 mg 11/05/19 10:00 11/10/19 09:42 Prevacid Solutab FEEDTUBE 30 mg QDAY AYUSH Administration Metoclopramide HCl 10 mg 11/04/19 19:58 Reglan IV Q6H PRN Nausea And Vomiting Ondansetron HCl 4 mg 11/04/19 19:59 11/06/19 01:10 Zofran IV 4 mg Q3HR PRN Administration Nausea And Vomiting Simple Syrup 15 ml 11/05/19 12:00 Simple Syrup FEEDTUBE PRN PRN Hypoglycemia Simple Syrup 30 ml 11/05/19 12:00 Simple Syrup FEEDTUBE PRN PRN Hypoglycemia Sodium Bicarbonate 325 mg 11/05/19 12:00 Sodium Bicarbonate FEEDTUBE PRN PRN For Clogged Feeding Tube
[2019-11-10] MEDS: FINASTERIDE 5 MG TAB PO SCH (22:38)
[2019-11-11] MEDS: SODIUM CHLORIDE 0.45% 1000 ML 1,000 ML IV SCH ×2 (02:02→10:10)
[2019-11-11 06:34] LABS: Calcium 9.2 mg/dL (8.4-10.2)
[2019-11-11 09:52] VITALS: BP 155/80
[2019-11-11] MEDS: LANSOPRAZOLE 30 MG SOLUTAB FEEDTUBE SCH (09:56)
[2019-11-11] MEDS: allopurinoL 300 MG TAB PO SCH (09:56)
[2019-11-11] MEDS: ASPIRIN 81 MG TAB CHEW PO SCH (09:56)
[2019-11-11] MEDS: FOLIC ACID 1 MG TAB PO SCH (09:56)
--- NOTE | 2019-11-11 11:57 | Discharge Summary ---
Providers - Providers Date of Admission: 11/04/19 13:48 Attending physician: ITZ MCKEON MD 11/04/19 17:57 Consult to Physician [CONS] Routine Comment: Consulting Provider: LALITA ROSENTHAL Physician Instructions: Reason For Exam: hypernatremia, ARF 11/04/19 18:05 Consult to Dietitian/Nutrition [CONS] Routine Physician Instructions: and malnutrition Reason For Exam: Reason for Consult: Write/Manage Tube Feeding 11/07/19 10:19 Occupational Therapy Evaluate and Treat [CONS] Routine Comment: Reason For Exam: Eval/treat, pt. from subacute Physical Therapy Evaluation and Treat [CONS] Routine Comment: Reason For Exam: Eval/treat, patient from subacute Primary care physician: PROCESS LABORATORY SPECIALIST Hospitalization Condition: Stable Hospital course: 79 yo man from [facility] with a history of hypertension, CKD 3, Dementia, thrombocytopenia, hypernatremia, BPH, dyslipidemia, CVA with aphasia, who presented with acute onset of AMS They state that they were not informed of the patient's low blood pressure or if he had any recent history of fever. He arrived at this facility with respiratory difficulty. His blood pressure was 60 systolic. He was given fluid resuscitation and a central line was immediately placed. He was able to protect his airway and his pulse oximetry was adequate. He is noted to have a G-tube. He gives no history. He was transferred out of ICU 11/05/19. He was transfused 1 unit of PRBC on 10/10/19, then right TLC femoral line removed. Daughter Lynn, who is stated POA gives a history of having history of CVA with aphasia but was able to walk up until 09/10/2019 when he fell [facility]. Patient stayed in this hospital from 09/10/19 until 10/09/2019 and [facility]. During that hospitalization, he had PNA, GIB/coffee ground emesis s/p EGD that showed antral gastritis and moderate distal esophagitis, PEG placement on 10/03/19. * pCXR Impression: Resolving bilateral bronchopneumonia * CT head without contrast: No acute abnormality, extensive chronic ischemic changes and cerebral atrophy * CT abd/pelvis/chest without contrast due to ARF: pneumonia RUL/RLL/WIL/LLL Acute anemia with precipitous drop in H/H, transfused 1 unit PRBC on resolvd: Outpatient follow-up Acute Metabolic Encephalopathy Severe hypernatremia: Received hypotonic IV fluid and free water replacement Hypovolemic shock s/p right TLC femoral line: off Vasopressor, continue IVF, shock resolved ARF/CKD 3 due to ATN: consulted Renal, improved with IV fluids Acute hypoxic respiratory failure from prior pneumonia: Received antibiotics Sepsis Multilobar pneumonia bilateral: Status post antibiotics Daughter Katharina expressed that patient is full code per the patient's wishes when he was able to make his own decisions Suspected Malnutrition, severe: Zigzag Stitcher consulted on pt Hypoglycemia: treated with dextrose, now resolved poor prognosis full code Disposition: [id number]/[place]-[id number] SNF [facility] Time spent for discharge: 33 mins Core Measure Documentation - Palliative Care Palliative Care/ Comfort Measures: Not Applicable - Core Measures Any of the following diagnoses?: none Exam - Constitutional Vitals: Temp Pulse Resp BP Pulse Ox 97.3 F L 107 H 18 155/80 94 11/11/19 08:04 11/11/19 05:37 11/11/19 08:04 11/11/19 08:04 11/11/19 03:44 General appearance: Present: no acute distress, well-nourished - EENT Eyes: Present: PERRL ENT: hearing intact, clear oral mucosa - Neck Neck: Present: supple, normal ROM - Respiratory Respiratory effort: normal Respiratory: bilateral: CTA - Cardiovascular Heart Sounds: Present: S1 & S2. Absent: rub, click - Extremities Extremities: pulses symmetrical, No edema Peripheral Pulses: within normal limits - Abdominal General gastrointestinal: Present: soft, non-tender, non-distended, normal bowel sounds Male genitourinary: Present: normal - Integumentary Integumentary: Present: clear, warm, dry - Musculoskeletal Musculoskeletal: gait normal, strength equal bilaterally - Psychiatric Psychiatric: no intact judgment & insight, no agitated - Neurologic Neurologic: CNII-XII intact, moves all extremities Plan Follow up with: PRIMARY CARE, [Primary Care Provider] - 3-5 Days
--- NOTE | 2019-11-11 18:01 | Progress Note ---
Assessment and Plan - Patient Problems (1) JULIA (acute kidney injury) Current Visit: No Status: Acute Plan to address problem: acute kidney injury :improving. current creatinine 1.6mg/dl baseline 1.3 etiology 2/2 volume depletion continue IVf. (2) Dementia Current Visit: No Status: Acute Plan to address problem: Dementia -continue fall precautions. (3) Hypernatremia Current Visit: No Status: Acute Plan to address problem: Hypernatremia Change to 0.45% saline improve access to free water. (4) HTN (hypertension) Current Visit: Yes Status: Acute Qualifiers: Hypertension type: essential hypertension Qualified Code(s): I10 - Essential (primary) hypertension Plan to address problem: Htn : controlled. continue current medicatons. Subjective Principal diagnosis: julia on ckd Interval history: 79 year old with medical history signficant for Dementia , AMS admitted with JULIA Patient seen today has impaired access to free water no shortness of breath. remains confused has hiccups. Objective - Vital Signs Vital signs: Vital Signs - 12hr 11/11/19 11/11/19 08:04 10:00 Temperature 97.3 F L Pulse Rate 97 H Respiratory 18 18 Rate Blood Pressure 155/80 - General Appearance General appearance: chronically ill, frail EENT: ATNC, PERRL Neck: no JVD Respiratory: Present: Clear to Ascultation Cardiology: regular, S1S2 Gastrointestinal: normal, normoactive bowel sounds Integumentary: no rash Neurologic: confused, CN 3-12 intact Musculoskeletal: other (no edema. ) Psychiatric: mood/affect appropriate, depressed - Lab 11/08/19 05:45 11/11/19 05:38 Most recent lab results ABG pH 7.351 pH Units (7.350-7.450) 11/04/19 10:20 ABG pCO2 31.4 mm Hg 11/04/19 10:20 ABG pO2 77.6 mm Hg (80.0-90.0) L 11/04/19 10:20 ABG HCO3 17.0 mmol/L (20.0-26.0) L 11/04/19 10:20 ABG O2 Saturation 95.1 % (95.0-99.0) 11/04/19 10:20 Calcium 9.2 mg/dL (8.4-10.2) 11/11/19 05:38 Magnesium 2.30 mg/dL (1.7-2.3) 11/04/19 09:10 - Imaging Chest x-ray: image reviewed (cxr reviewed no edema. ) Medications & Allergies - Medications Allergies/Adverse Reactions: Allergies No Known Allergies Allergy (Unverified 07/23/13 13:35) Home Medications: Home Medications Medication Instructions Recorded Confirmed Last Taken Type AtorvaSTATin [Lipitor] 40 mg PO QHS 09/09/19 11/04/19 Unknown History Cyanocobalamin [Vitamin B-12] 1,000 mcg IM QMONTH 09/09/19 11/04/19 Unknown History Finasteride [Proscar] 5 mg PO QHS 09/09/19 11/04/19 Unknown History Folic Acid 1 mg PO DAILY 09/09/19 11/04/19 Unknown History Vit-Fe Fumar-FA [ 1 tab PO DAILY 09/09/19 11/04/19 Unknown History Vitamin] allopurinoL [Zyloprim] 300 mg PO QDAY 09/09/19 11/04/19 Unknown History Lansoprazole Solutab [Prevacid 30 mg FEEDTUBE QDAY 30 Days 10/09/19 11/04/19 Unknown Rx Solutab] tab.rapdis Metoprolol Xl [Metoprolol 25 mg PO QDAY #30 tablet 10/09/19 11/04/19 Unknown Rx SUCCINATE ER TAB] Tamsulosin [Flomax] 0.4 mg PO QDAY #30 capsule 10/09/19 11/04/19 Unknown Rx Active Medications: Generic Name Dose Route Start Last Admin Trade Name Freq PRN Reason Stop Dose Admin Albuterol 2.5 mg 11/05/19 12:08 11/05/19 12:21 Proventil IH 2.5 mg Q4HRT PRN Administration Shortness Of Breath Allopurinol 300 mg 11/05/19 10:00 11/11/19 09:56 Zyloprim PO 300 mg QDAY AYUSH Administration Lipase/Protease/Amylase 1 each 11/05/19 12:00 Mayra Stacy 10,500 Unit FEEDTUBE PRN PRN For Clogged Feeding Tube Aspirin 81 mg 11/08/19 10:00 11/11/19 09:56 Baby Aspirin PO 81 mg QDAY AYUSH Administration Atorvastatin Calcium 40 mg 11/04/19 22:00 11/10/19 22:38 Lipitor PO 40 mg QHS AYUSH Administration Bisacodyl 10 mg 11/10/19 14:[address] QDAY PRN Constipation Cyanocobalamin 1,000 mcg 11/04/19 19:00 11/04/19 23:10 Vitamin B-12 IM 1,000 mcg QMONTH AYUSH Administration Finasteride 5 mg 11/04/19 22:00 11/10/19 22:38 Proscar PO 5 mg QHS AYUSH Administration Folic Acid 1 mg 11/05/19 10:00 11/11/19 09:56 Folvite PO 1 mg DAILY AYUSH Administration Sodium Chloride 1,000 mls @ 150 mls/hr 11/10/19 09:00 11/11/19 10:10 Nacl 0.45% 1000 Ml IV 150 mls/hr DIRECT AYUSH Administration Lansoprazole 30 mg 11/05/19 10:00 11/11/19 09:56 Prevacid Solutab FEEDTUBE 30 mg QDAY AYUSH Administration Metoclopramide HCl 10 mg 11/04/19 19:58 Reglan IV Q6H PRN Nausea And Vomiting Ondansetron HCl 4 mg 11/04/19 19:59 11/06/19 01:10 Zofran IV 4 mg Q3HR PRN Administration Nausea And Vomiting Simple Syrup 15 ml 11/05/19 12:00 Simple Syrup FEEDTUBE PRN PRN Hypoglycemia Simple Syrup 30 ml 11/05/19 12:00 Simple Syrup FEEDTUBE PRN PRN Hypoglycemia Sodium Bicarbonate 325 mg 11/05/19 12:00 Sodium Bicarbonate FEEDTUBE PRN PRN For Clogged Feeding Tube
== END 2019-11-11 18:21 | DRG 871 ==
LOC: ED 08:45 → CC1 13:48 → 4A 11-05 16:25
PROVIDERS: ADMIT Internal Medicine; ATTEND Internal Medicine
PROC: 4A033R1 Measurement of Arterial Saturation, Peripheral, Percutaneous Approach (ICD-10-PCS; 2019-11-04)
PROC: 06HY33Z Insertion of Infusion Device into Lower Vein, Percutaneous Approach (ICD-10-PCS; 2019-11-04)
PROC: 30233N1 Transfusion of Nonautologous Red Blood Cells into Peripheral Vein, Percutaneous Approach (ICD-10-PCS; principal; 2019-11-07)
DX: A41.9 Sepsis, unspecified organism (principal); R65.21 Severe sepsis with septic shock; G93.41 Metabolic encephalopathy; R57.1 Hypovolemic shock; N17.0 Acute kidney failure with tubular necrosis; J96.01 Acute respiratory failure with hypoxia; E43 Unspecified severe protein-calorie malnutrition; J18.1 Lobar pneumonia, unspecified organism; I21.4 Non-ST elevation (NSTEMI) myocardial infarction; E87.0 Hyperosmolality and hypernatremia; F03.90 Unspecified dementia, unspecified severity, without behavioral disturbance, psychotic disturbance, mood disturbance, and anxiety; I12.9 Hypertensive chronic kidney disease with stage 1 through stage 4 chronic kidney disease, or unspecified chronic kidney disease; N18.3 Chronic kidney disease, stage 3 (moderate); N40.0 Benign prostatic hyperplasia without lower urinary tract symptoms; E78.5 Hyperlipidemia, unspecified; D64.9 Anemia, unspecified; E16.2 Hypoglycemia, unspecified; E87.5 Hyperkalemia; Z68.22 Body mass index [BMI] 22.0-22.9, adult; Z71.3 Dietary counseling and surveillance; Z79.899 Other long term (current) drug therapy; I69.320 Aphasia following cerebral infarction; Z93.1 Gastrostomy status
CPT/HCPCS: 36415; 70450; 71045; 71250; 74176; 80048; 80061; 80076; 81001; 82140; 82550; 82553; 82803; 82962; 83735; 83880; 84484; 85007; 85025; 85027; 85610; 85730; 86850; 86900; 86901; 86920; 87040; 93005; 93010; 93306; 94640; G0378; A9270-GY; J0456; J0696; J2405; J3420; J3480; J7030; J7040; J7050; J7070; J7120; P9016

== ENCOUNTER 2019-12-12 04:17 | Inpatient (IN) | payer MEDICARE ==
[2019-12-12] MEDS ORDERED: SODIUM CHLORIDE 0.9% 1000 ML 1,000 ML IV ONE ×3 (04:25→05:29)
[2019-12-12] MEDS ORDERED: LIP THERAPY VASELINE TP PRN (05:18)
[2019-12-12] MEDS ORDERED: MINERAL OIL/PETROLATUM, WHITE OPHTH OINT 3.5 GM OU PRN (05:18)
[2019-12-12 05:24] LABS: Basophils % (Auto) 0.2 % (0.0-1.8); Eosinophils % (Auto) 0.1 % (0.0-4.3); Hematocrit 23.1 % (35.5-45.6); Hemoglobin 7.7 gm/dl (11.8-15.2); Lymphocytes # (Auto) 0.5 K/mm3 (1.2-5.4); Lymphocytes % (Auto) 9.9 % (13.4-35.0); Mean Corpuscular HGB Conc 34 % (32-34); Mean Corpuscular Volume 97 fl (84-94); Monocytes # (Auto) 0.2 K/mm3 (0.0-0.8); Monocytes % (Auto) 3.3 % (0.0-7.3); Platelet Count 174 K/mm3 (140-440); Red Blood Count 2.39 M/mm3 (3.65-5.03); Red Cell Distribution Width 18.8 % (13.2-15.2)
[2019-12-12] MEDS ORDERED: VANCOMYCIN 1,500 MG in SODIUM CHLORIDE 0.9% 500 ML 500 ML IV ONE (05:27)
[2019-12-12 05:32] LABS: ABG Methemoglobin 0.6 % (0.0-1.5); ABG Oxygen Saturation 99.5 % (95.0-99.0)
[2019-12-12 05:35] LABS: INR 1.17 (0.87-1.13)
[2019-12-12 05:36] LABS: ABG Base Excess -7.2 mmol/L (-2.0-3.0); ABG HCO3 18.2 mmol/L (20.0-26.0); ABG PCO2 36.1 mm Hg; ABG PH 7.32 pH Units (7.350-7.450); ABG PO2 95.6 mm Hg (80.0-90.0); VEN PH 7.32 (7.320-7.420)
--- NOTE | 2019-12-12 05:37 | XRay Report ---
CHEST 1 VIEW INDICATION / CLINICAL INFORMATION: sob. COMPARISON: 11/04/2019 FINDINGS: SUPPORT DEVICES: Endotracheal tube is now in place as well as right central line. HEART / MEDIASTINUM: No significant abnormality. LUNGS / PLEURA: Bilateral lung consolidation shows slight worsening with patchy areas of density now present with underlying interstitial consolidation seen as well.. No pneumothorax. ADDITIONAL FINDINGS: No significant additional findings. IMPRESSION: 1 Endotracheal tube and central line placements. Signer Name: Pool Nicole MD Signed: 12/12/2019 5:33 AM Workstation Name: [employer]
[2019-12-12 05:43] LABS: Albumin 2.2 g/dL (3.9-5); Calcium 9.4 mg/dL (8.4-10.2)
--- NOTE | 2019-12-12 05:50 | Emergency Department Report ---
ED Altered Mental Status HPI - General Chief Complaint: Altered Mental Status Stated Complaint: SEPSIS Time Seen by Provider: 12/12/19 04:22 Source: patient Mode of arrival: Stretcher Limitations: Altered Mental Status - History of Present Illness Initial Comments: 79-year-old male with a past medical history of hypertension, dementia, chronic kidney disease, thrombocytopenia, dyslipidemia, CVA with aphasia and PEG placement, and recent admission here for bilateral pneumonia presents from [facility] with alteration in mental status, respiratory distress, and hypoxia. As per EMS at his baseline patient is responsive but confused however, now he is having respiratory distress and responding only to painful stimuli. Patient is tachypneic with a saturation of 89 to 90% on nonrebreather. Initial systolic pressure in the 60s. Patient also having intermittent coughing with accessory muscle use. Decision made to intubate and place a central line for resuscitation and stabilization. correction paperwork was not provided. Previous medical record reviewed and patient had a similar presentation and was admitted here November 04 until November 11 with a diagnosis of bilateral pneumonia and sepsis. He also required blood transfusion and central line placement however, he was not intubated at that time. As per medical record patient's power of commercial attorney is his daughter Katharina and patient is last documented to be full code during previous admission - Related Data Home Medications Medication Instructions Recorded Confirmed Last Taken AtorvaSTATin [Lipitor] 40 mg PO QHS 09/09/19 12/12/19 Unknown Cyanocobalamin [Vitamin B-12] 1,000 mcg IM QMONTH 09/09/19 12/12/19 Unknown Finasteride [Proscar] 5 mg PO QHS 09/09/19 12/12/19 Unknown Folic Acid 1 mg PO DAILY 09/09/19 12/12/19 Unknown Vit-Fe Fumar-FA [ 1 tab PO DAILY 09/09/19 12/12/19 Unknown Vitamin] allopurinoL [Zyloprim] 300 mg PO QDAY 09/09/19 12/12/19 Unknown Previous Rx's Medication Instructions Recorded Last Taken Type Lansoprazole Solutab [Prevacid 30 mg FEEDTUBE QDAY 30 Days 10/09/19 Unknown Rx Solutab] tab.rapdis Metoprolol Xl [Metoprolol 25 mg PO QDAY #30 tablet 10/09/19 Unknown Rx SUCCINATE ER TAB] Tamsulosin [Flomax] 0.4 mg PO QDAY #30 capsule 10/09/19 Unknown Rx Allergies Allergy/AdvReac Type Severity Reaction Status Date / Time No Known Allergies Allergy Unverified 07/23/13 13:35 ED Review of Systems ROS: Stated complaint: SEPSIS Other details as noted in HPI Comment: Unobtainable due to pts medical conditions ED Past Medical Hx - Past Medical History Previous Medical History?: Yes Hx Hypertension: Yes Hx Renal Disease: Yes (stage 3. ARF) Hx Dementia: Yes Additional medical history: enlarged prostate, aspiration Pnemonia, Sepsis(December 2019) - Surgical History Additional Surgical History: cataracts - Social History Smoking Status: Unknown if ever smoked - Medications Home Medications: Home Medications Medication Instructions Recorded Confirmed Last Taken Type AtorvaSTATin [Lipitor] 40 mg PO QHS 09/09/19 12/12/19 Unknown History Cyanocobalamin [Vitamin B-12] 1,000 mcg IM QMONTH 09/09/19 12/12/19 Unknown History Finasteride [Proscar] 5 mg PO QHS 09/09/19 12/12/19 Unknown History Folic Acid 1 mg PO DAILY 09/09/19 12/12/19 Unknown History Vit-Fe Fumar-FA [ 1 tab PO DAILY 09/09/19 12/12/19 Unknown History Vitamin] allopurinoL [Zyloprim] 300 mg PO QDAY 09/09/19 12/12/19 Unknown History Lansoprazole Solutab [Prevacid 30 mg FEEDTUBE QDAY 30 Days 10/09/19 12/12/19 Unknown Rx Solutab] tab.rapdis Metoprolol Xl [Metoprolol 25 mg PO QDAY #30 tablet 10/09/19 12/12/19 Unknown Rx SUCCINATE ER TAB] Tamsulosin [Flomax] 0.4 mg PO QDAY #30 capsule 10/09/19 12/12/19 Unknown Rx ED Physical Exam - General Limitations: Altered Mental Status - Other Other exam information: General: Acute distress Head: Atraumatic Eyes: normal appearance ENT: Dry mucous membrane Neck: Normal appearance, no midline tenderness Chest: Bilateral rhonchi and crackle CV: R tachycardic regular Abdomen: Soft, nondistended positive PEG Back: Normal inspection Extremity: Normal inspection, right upper extremity stitch likely an area of previous central line placement 1 month ago. Nurse informed to remove stitch Neuro: Altered oriented x0, will not speak or follow command commands, some spontaneous movement of extremities Skin: No rash ED Course Vital Signs 12/12/19 12/12/19 12/12/19 04:21 04:51 06:30 Temperature 95.5 F L Pulse Rate 128 H 106 H 103 H Respiratory 16 24 Rate Blood Pressure 65/39 52/28 120/65 Blood Pressure [Left] O2 Sat by Pulse 89 100 100 Oximetry 12/12/19 12/12/19 12/12/19 06:45 07:00 07:15 Temperature Pulse Rate 108 H 111 H 107 H Respiratory 17 20 25 H Rate Blood Pressure 117/75 122/104 123/67 Blood Pressure [Left] O2 Sat by Pulse 100 100 100 Oximetry 12/12/19 12/12/19 12/12/19 08:16 08:48 08:52 Temperature 93.6 F L Pulse Rate 77 96 H 95 H Respiratory 16 20 Rate Blood Pressure 97/60 Blood Pressure 75/42 95/57 [Left] O2 Sat by Pulse 100 100 100 Oximetry 12/12/19 10:00 Temperature 97.7 F Pulse Rate 101 H Respiratory Rate Blood Pressure Blood Pressure [Left] O2 Sat by Pulse Oximetry - Central Line Placement Right IJ Consent Obtained: emergent situation Time Out Performed: Yes Patient Placed on Monitor/Pulse Ox: Yes Prep: mask, gown, gloves Central Line Prep: Chlorhexidine scrub Local Anesthesia Used: Lidocaine 1% Amount of Anesthesia Used (mls): 5 Ultrasound Used for Placement: Yes Bloods Obtained for Lab: Yes Central Line Position: good blood return, all ports aspirated, flus, sutured in place with 3-0 Dressing Applied: Tegaderm Post Procedure X-Ray: tip of catheter in good p Patient Tolerated Procedure: well Complications: none - Intubation Time Out Performed: Yes Sedative: Etomidate Mg Given: 20 Paralytic: Succinylcholine Mg Given: 100 Laryngoscope: Zaid ET Tube Size: 7.5 Tube Secured Depth (cm): 22 Tube Secured Location: lips Tube Placement Confirmation: visualized tube passing t, equal breath sounds bilat, no breath sounds over epi, confirmation by capnometr Patient Tolerated Procedure: well Intubation Complications: none - Lab Data Result diagrams: 12/15/19 05:30 12/15/19 05:30 Lab Results 0312/12/19 12/12/19 Range/Units 04:35 05:00 05:00 WBC 5.2 (4.5-11.0) K/mm3 RBC 2.39 L (3.65-5.03) M/mm3 Hgb 7.7 L (11.8-15.2) gm/dl Hct 23.1 L (35.5-45.6) % MCV 97 H (84-94) fl MCH 32 (28-32) pg MCHC 34 (32-34) % RDW 18.8 H (13.2-15.2) % Plt Count 174 (140-440) K/mm3 Lymph % (Auto) 9.9 L (13.4-35.0) % [place] % (Auto) 3.3 (0.0-7.3) % Eos % (Auto) 0.1 (0.0-4.3) % Baso % (Auto) 0.2 (0.0-1.8) % Lymph # 0.5 L (1.2-5.4) K/mm3 [place] # 0.2 (0.0-0.8) K/mm3 Eos # 0.0 (0.0-0.4) K/mm3 Baso # 0.0 (0.0-0.1) K/mm3 Seg Neutrophils % 86.5 H (40.0-70.0) % Seg Neutrophils # 4.5 (1.8-7.7) K/mm3 PT (12.2-14.9) Sec. INR (0.87-1.13) APTT (24.2-36.6) Sec. ABG pH (7.350-7.450) pH Units ABG pCO2 mm Hg ABG pO2 (80.0-90.0) mm Hg ABG HCO3 (20.0-26.0) mmol/L ABG O2 Saturation (95.0-99.0) % ABG O2 Content (0.0-44) ABG Base Excess (-2.0-3.0) mmol/L ABG Hemoglobin (14.0-18.0) gm/dl ABG Carboxyhemoglobin (0.0-5.0) % ABG Methemoglobin (0.0-1.5) % VBG pH (7.320-7.420) Oxyhemoglobin (95.0-99.0) % FiO2 % Sodium 139 (137-145) mmol/L Potassium 4.2 (3.6-5.0) mmol/L Chloride 100.3 (98-107) mmol/L Carbon Dioxide 19 L (22-30) mmol/L Anion Gap 24 mmol/L BUN 51 H (9-20) mg/dL Creatinine 1.9 H (0.8-1.5) mg/dL Estimated GFR 41 ml/min BUN/Creatinine Ratio 27 % Glucose 117 H (75-100) mg/dL POC Glucose 129 H (70-105) Lactic Acid (0.7-2.0) mmol/L Calcium 9.4 (8.4-10.2) mg/dL Total Bilirubin 0.30 (0.1-1.2) mg/dL AST 46 H (5-40) units/L ALT 72 H (7-56) units/L Alkaline Phosphatase 84 (35-129) units/L Troponin T 0.080 H (0.00-0.029) ng/mL Total Protein 6.4 (6.3-8.2) g/dL Albumin 2.2 L (3.9-5) g/dL Albumin/Globulin Ratio 0.5 % Triglycerides 30 (2-149) mg/dL Cholesterol 82 (50-199) mg/dL LDL Cholesterol Direct 38 L (50-130) mg/dL HDL Cholesterol 45 (40-59) mg/dL Cholesterol/HDL Ratio 1.82 % Blood Type Antibody Screen Crossmatch 12/12/19 12/12/19 12/12/19 Range/Units 05:00 05:00 05:00 WBC (4.5-11.0) K/mm3 RBC (3.65-5.03) M/mm3 Hgb (11.8-15.2) gm/dl Hct (35.5-45.6) % MCV (84-94) fl MCH (28-32) pg MCHC (32-34) % RDW (13.2-15.2) % Plt Count (140-440) K/mm3 Lymph % (Auto) (13.4-35.0) % [place] % (Auto) (0.0-7.3) % Eos % (Auto) (0.0-4.3) % Baso % (Auto) (0.0-1.8) % Lymph # (1.2-5.4) K/mm3 [place] # (0.0-0.8) K/mm3 Eos # (0.0-0.4) K/mm3 Baso # (0.0-0.1) K/mm3 Seg Neutrophils % (40.0-70.0) % Seg Neutrophils # (1.8-7.7) K/mm3 PT 15.1 H (12.2-14.9) Sec. INR 1.17 H (0.87-1.13) APTT 28.0 (24.2-36.6) Sec. ABG pH 7.320 L (7.350-7.450) pH Units ABG pCO2 36.1 mm Hg ABG pO2 95.6 H (80.0-90.0) mm Hg ABG HCO3 18.2 L (20.0-26.0) mmol/L ABG O2 Saturation 99.5 H (95.0-99.0) % ABG O2 Content 9.9 (0.0-44) ABG Base Excess -7.2 L (-2.0-3.0) mmol/L ABG Hemoglobin 7.3 L (14.0-18.0) gm/dl ABG Carboxyhemoglobin 4.1 (0.0-5.0) % ABG Methemoglobin 0.6 (0.0-1.5) % VBG pH 7.320 (7.320-7.420) Oxyhemoglobin 94.9 L (95.0-99.0) % FiO2 21 % Sodium (137-145) mmol/L Potassium (3.6-5.0) mmol/L Chloride (98-107) mmol/L Carbon Dioxide (22-30) mmol/L Anion Gap mmol/L BUN (9-20) mg/dL Creatinine (0.8-1.5) mg/dL Estimated GFR ml/min BUN/Creatinine Ratio % Glucose (75-100) mg/dL POC Glucose (70-105) Lactic Acid 7.90 H* (0.7-2.0) mmol/L Calcium (8.4-10.2) mg/dL Total Bilirubin (0.1-1.2) mg/dL AST (5-40) units/L ALT (7-56) units/L Alkaline Phosphatase (35-129) units/L Troponin T (0.00-0.029) ng/mL Total Protein (6.3-8.2) g/dL Albumin (3.9-5) g/dL Albumin/Globulin Ratio % Triglycerides (2-149) mg/dL Cholesterol (50-199) mg/dL LDL Cholesterol Direct (50-130) mg/dL HDL Cholesterol (40-59) mg/dL Cholesterol/HDL Ratio % Blood Type Antibody Screen Crossmatch 12/12/19 12/12/19 Range/Units 05:00 07:04 WBC (4.5-11.0) K/mm3 RBC (3.65-5.03) M/mm3 Hgb (11.8-15.2) gm/dl Hct (35.5-45.6) % MCV (84-94) fl MCH (28-32) pg MCHC (32-34) % RDW (13.2-15.2) % Plt Count (140-440) K/mm3 Lymph % (Auto) (13.4-35.0) % [place] % (Auto) (0.0-7.3) % Eos % (Auto) (0.0-4.3) % Baso % (Auto) (0.0-1.8) % Lymph # (1.2-5.4) K/mm3 [place] # (0.0-0.8) K/mm3 Eos # (0.0-0.4) K/mm3 Baso # (0.0-0.1) K/mm3 Seg Neutrophils % (40.0-70.0) % Seg Neutrophils # (1.8-7.7) K/mm3 PT (12.2-14.9) Sec. INR (0.87-1.13) APTT (24.2-36.6) Sec. ABG pH (7.350-7.450) pH Units ABG pCO2 mm Hg ABG pO2 (80.0-90.0) mm Hg ABG HCO3 (20.0-26.0) mmol/L ABG O2 Saturation (95.0-99.0) % ABG O2 Content (0.0-44) ABG Base Excess (-2.0-3.0) mmol/L ABG Hemoglobin (14.0-18.0) gm/dl ABG Carboxyhemoglobin (0.0-5.0) % ABG Methemoglobin (0.0-1.5) % VBG pH (7.320-7.420) Oxyhemoglobin (95.0-99.0) % FiO2 % Sodium (137-145) mmol/L Potassium (3.6-5.0) mmol/L Chloride (98-107) mmol/L Carbon Dioxide (22-30) mmol/L Anion Gap mmol/L BUN (9-20) mg/dL Creatinine (0.8-1.5) mg/dL Estimated GFR ml/min BUN/Creatinine Ratio % Glucose (75-100) mg/dL POC Glucose (70-105) Lactic Acid 7.30 H* (0.7-2.0) mmol/L Calcium (8.4-10.2) mg/dL Total Bilirubin (0.1-1.2) mg/dL AST (5-40) units/L ALT (7-56) units/L Alkaline Phosphatase (35-129) units/L Troponin T (0.00-0.029) ng/mL Total Protein (6.3-8.2) g/dL Albumin (3.9-5) g/dL Albumin/Globulin Ratio % Triglycerides (2-149) mg/dL Cholesterol (50-199) mg/dL LDL Cholesterol Direct (50-130) mg/dL HDL Cholesterol (40-59) mg/dL Cholesterol/HDL Ratio % Blood Type A POSITIVE Antibody Screen Negative Crossmatch See Detail - EKG Data -: EKG Interpreted by [place] EKG shows normal: sinus rhythm, ST-T waves (no stemi) Rate: tachycardia (110) - Radiology Data Radiology results: report reviewed CHEST 1 VIEW INDICATION / CLINICAL INFORMATION: sob. COMPARISON: 11/04/2019 FINDINGS: SUPPORT DEVICES: Endotracheal tube is now in place as well as right central line. HEART / MEDIASTINUM: No significant abnormality. LUNGS / PLEURA: Bilateral lung consolidation shows slight worsening with patchy areas of density now present with underlying interstitial consolidation seen as well.. No pneumothorax. ADDITIONAL FINDINGS: No significant additional findings. IMPRESSION: 1 Endotracheal tube and central line placements. - Medical Decision Making Patient was intubated and received central line upon arrival due to respiratory distress and hypotension. Volume resuscitation initiated with normal saline greater. Patient received greater than 30 mL/kg normal saline bolus as indicated by sepsis protocol. Patient treated with cefepime and vancomycin for healthcare associated pneumonia given recent admissions and [facility] placement. Patient required Levophed drip due to persistent hypotension despite fluid boluses to maintain map greater than 65. Anemia noted. Patient's ABG revealed a mild metabolic acidosis. Disposition urine collection pending. Patient has has chronic troponin elevation and is improved compared to previous. - Differential Diagnosis Sepsis, pneumonia, UTI, anemia, encephalopathy Critical Care Time: Yes Critical care time in (mins) excluding proc time.: 35 Critical care attestation.: If time is entered above; I have spent that time in minutes in the direct care of this critically ill patient, excluding procedure time. ED Disposition Clinical Impression: Septic shock, Acute encephalopathy, Dementia, Bilateral pneumonia, Anemia, Acute respiratory failure, CRI (chronic renal insufficiency) Disposition: OP ADMIT IP TO THIS HOSP Is pt being admited?: Yes Condition: Stable Time of Disposition: 05:59 (Dr Wu/hosp)
[2019-12-12] MEDS ORDERED: CEFEPIME/NS 2 GM/100 ML 2 GM/100 ML BAG IV SCH ×2 (06:00→14:00)
[2019-12-12] MEDS: NORepinephrine/NS 4 MG-250 ML 4 MG/250 ML BAG IV SCH ×6 (06:00→21:59)
[2019-12-12] MEDS ORDERED: VANCOMYCIN PHARMACY TO DOSE IV SCH (06:00)
[2019-12-12 06:39] LABS: Chol/HDL Ratio 1.82 %
[2019-12-12] MEDS ORDERED: LORazepam 2 MG/ML VIAL IV ONE (07:03)
[2019-12-12] MEDS: LORazepam 2 MG/ML VIAL IV PRN (07:36)
--- NOTE | 2019-12-12 07:47 | History and Physical Report ---
History of Present Illness Date of examination: 12/12/19 Date of admission: 12/12/19 Chief complaint: AMS with SOB History of present illness: 79-year-old male with a past medical history of hypertension, dementia, chronic kidney disease, thrombocytopenia, dyslipidemia, CVA with aphasia s/p PEG placement, and recent admission here for bilateral pneumonia presents from residential with alteration in mental status, respiratory distress, and hypoxia. In the ER Patient was tachypneic with a saturation of 89 to 90% on nonrebreather, systolic pressure 160s. Patient also having intermittent coughing with accessory muscle use. He was intubate in the ER and place a central line for resuscitation and stabilization. He is being admitted to ICU for further evaluation and Mx. Past History Past Medical History: hypertension, other (dementia, CVA aphasia) Past Surgical History: No surgical history Social history: no significant social history ROS: unable to get due to AMS Medications and Allergies Allergies Allergy/AdvReac Type Severity Reaction Status Date / Time No Known Allergies Allergy Unverified 07/23/13 13:35 Home Medications Medication Instructions Recorded Confirmed Last Taken Type AtorvaSTATin [Lipitor] 40 mg PO QHS 09/09/19 12/12/19 Unknown History Cyanocobalamin [Vitamin B-12] 1,000 mcg IM QMONTH 09/09/19 12/12/19 Unknown History Finasteride [Proscar] 5 mg PO QHS 09/09/19 12/12/19 Unknown History Folic Acid 1 mg PO DAILY 09/09/19 12/12/19 Unknown History Vit-Fe Fumar-FA [ 1 tab PO DAILY 09/09/19 12/12/19 Unknown History Vitamin] allopurinoL [Zyloprim] 300 mg PO QDAY 09/09/19 12/12/19 Unknown History Lansoprazole Solutab [Prevacid 30 mg FEEDTUBE QDAY 30 Days 10/09/19 12/12/19 Unknown Rx Solutab] tab.rapdis Metoprolol Xl [Metoprolol 25 mg PO QDAY #30 tablet 10/09/19 12/12/19 Unknown Rx SUCCINATE ER TAB] Tamsulosin [Flomax] 0.4 mg PO QDAY #30 capsule 10/09/19 12/12/19 Unknown Rx Active Meds: Active Medications Hydrophilic Ointment (Vaseline Lip Therapy) 1 applic TP Q2HR PRN PRN Reason: Dry Lips Norepinephrine (Levophed Drip 4 Mg/Ns 250 Ml) 4 mg in 250 mls @ 7.5 mls/hr IV TITR AYUSH; Protocol Last Titration: 12/12/19 06:47 Dose: 8 mcg/min, 30 mls/hr Documented by: Vancomycin HCl 1,250 mg/ (Sodium Chloride) 275 mls @ 166.667 mls/hr IV Q24H [facility] Cefepime HCl (Cefepime/Ns 2 Gm/100 Ml) 2 gm in 100 mls @ 200 mls/hr IV Q12H [facility]; Protocol Lorazepam 100 mg/ Sodium Chloride/ Miscellaneous Information 100 mls @ 1 mls/hr IV TITR AYUSH; Protocol Last Admin: 12/12/19 07:36 Dose: 1 mg/hr, 1 mls/hr Documented by: Lorazepam (Ativan) 2 mg IV Q10MIN PRN PRN Reason: Agitation Last Admin: 12/12/19 07:36 Dose: 2 mg Documented by: Multi-Ingred Cream/Lotion/Oil/Oint (Artificial Tears Ophth Oint) 1 applic OU Q4HR PRN PRN Reason: Dry Eye(s) Exam - Constitutional Vitals: Temp Pulse Resp BP Pulse Ox 95.5 F L 107 H 25 H 123/67 100 12/12/19 04:21 12/12/19 07:15 12/12/19 07:15 12/12/19 07:15 12/12/19 07:15 General appearance: Present: other (intubated and sedated) - EENT Eyes: Absent: scleral icterus, conjunctival injection ENT: other (ET tube in place) - Neck Neck: Present: supple - Respiratory Respiratory: bilateral: rales (on mechanical ventilation) - Cardiovascular Heart Sounds: Present: S1 & S2. Absent: rub, click - Extremities Extremities: pulses symmetrical, No edema Peripheral Pulses: within normal limits - Abdominal General gastrointestinal: Present: soft, non-tender, non-distended, normal bowel sounds, other (PEG tube in place) - Integumentary Integumentary: Present: clear, warm, dry - Musculoskeletal Musculoskeletal: other (no joint swelling or pain ) - Psychiatric Psychiatric: other (unable to assess) - Neurologic Neurologic: other (unable to assess) Results - Labs CBC & Chem 7: 12/12/19 05:00 12/12/19 05:00 Labs: Abnormal lab results 12/12/19 12/12/19 12/12/19 Range/Units 04:35 05:00 05:00 RBC 2.39 L (3.65-5.03) M/mm3 Hgb 7.7 L (11.8-15.2) gm/dl Hct 23.1 L (35.5-45.6) % MCV 97 H (84-94) fl RDW 18.8 H (13.2-15.2) % Lymph % (Auto) 9.9 L (13.4-35.0) % Lymph # 0.5 L (1.2-5.4) K/mm3 Seg Neutrophils % 86.5 H (40.0-70.0) % PT (12.2-14.9) Sec. INR (0.87-1.13) ABG pH (7.350-7.450) pH Units ABG pO2 (80.0-90.0) mm Hg ABG HCO3 (20.0-26.0) mmol/L ABG O2 Saturation (95.0-99.0) % ABG Base Excess (-2.0-3.0) mmol/L ABG Hemoglobin (14.0-18.0) gm/dl Oxyhemoglobin (95.0-99.0) % Carbon Dioxide 19 L (22-30) mmol/L BUN 51 H (9-20) mg/dL Creatinine 1.9 H (0.8-1.5) mg/dL Glucose 117 H (75-100) mg/dL POC Glucose 129 H (70-105) Lactic Acid (0.7-2.0) mmol/L AST 46 H (5-40) units/L ALT 72 H (7-56) units/L Troponin T 0.080 H (0.00-0.029) ng/mL Albumin 2.2 L (3.9-5) g/dL LDL Cholesterol Direct 38 L (50-130) mg/dL 12/12/19 12/12/19 12/12/19 Range/Units 05:00 05:00 05:00 RBC (3.65-5.03) M/mm3 Hgb (11.8-15.2) gm/dl Hct (35.5-45.6) % MCV (84-94) fl RDW (13.2-15.2) % Lymph % (Auto) (13.4-35.0) % Lymph # (1.2-5.4) K/mm3 Seg Neutrophils % (40.0-70.0) % PT 15.1 H (12.2-14.9) Sec. INR 1.17 H (0.87-1.13) ABG pH 7.320 L (7.350-7.450) pH Units ABG pO2 95.6 H (80.0-90.0) mm Hg ABG HCO3 18.2 L (20.0-26.0) mmol/L ABG O2 Saturation 99.5 H (95.0-99.0) % ABG Base Excess -7.2 L (-2.0-3.0) mmol/L ABG Hemoglobin 7.3 L (14.0-18.0) gm/dl Oxyhemoglobin 94.9 L (95.0-99.0) % Carbon Dioxide (22-30) mmol/L BUN (9-20) mg/dL Creatinine (0.8-1.5) mg/dL Glucose (75-100) mg/dL POC Glucose (70-105) Lactic Acid 7.90 H* (0.7-2.0) mmol/L AST (5-40) units/L ALT (7-56) units/L Troponin T (0.00-0.029) ng/mL Albumin (3.9-5) g/dL LDL Cholesterol Direct (50-130) mg/dL Assessment and Plan Sepsis with b/l PNA (HCAP) - Sepsis with PNA, tachycardia, tachypnea, and lactic acidosis - start on iv abx, follow cx Acute hypoxic respiratory failure - intubated, consulted pulmonary - placed on scheduled nebs Septic shock, - on levophed, also cont iv fluid dementia, h/o chronic kidney disease, - Cr at his baseline, cont to monitor, iv fluid thrombocytopenia with anemia - monitor CBC dyslipidemia, cont statin NSTEMI type 2 -chronically elevated, monitor for now - EF 45-50% on 10/27 CVA with aphasia s/p PEG placement - cont asp, statin, supportive care - start TF DVT, heparin The high probability of a clinically significant, sudden or life threatening deterioration of the [multiple] system(s) required my full and direct attention, intervention and personal management. The aggregate critical care time was [42] minutes. This time is in addition to time spent performing reported procedures but includes the following: [x] Data Review and interpretation [x] Patient assessment and monitoring of vital signs [x] Documentation [x] Medication orders and management
[2019-12-12] MEDS ORDERED: MORPHINE 2 MG/1 ML INJ IV PRN (07:52)
[2019-12-12] MEDS ORDERED: ACETAMINOPHEN 325 MG TAB PO PRN (07:52)
[2019-12-12] MEDS ORDERED: ONDANSETRON 4 MG/2 ML INJ IV PRN (07:52)
[2019-12-12] MEDS ORDERED: LORazepam 100 MG in SODIUM CHLORIDE 0.9% 50 ML, EMPTY BAG 0 ML IV SCH (08:00)
[2019-12-12 08:25] LABS: Bacteria,Urine 1+ /HPF (Negative); Bilirubin,Urine NEG (Negative); Blood,Urine NEG (Negative); Color,Urine Yellow (Yellow); Hyaline Casts,Urine 1 /LPF; Mucus,Urine FEW /HPF; Protein,Urine <15 mg/dL mg/dL (Negative); Urobilinogen,Urine < 2.0 mg/dL (<2.0)
[2019-12-12] MEDS ORDERED: SODIUM CHLORIDE 0.9% 1000 ML 1,000 ML ONE (08:52)
[2019-12-12] MEDS ORDERED: D5W/0.9% NACL 1,000 ML IV SCH (09:00)
--- NOTE | 2019-12-12 09:43 | Consultation ---
History of Present Illness Consult date: 12/12/19 Requesting physician: OG CISNEROS History of present illness: 79-year-old male with a past medical history of hypertension, dementia, chronic kidney disease, thrombocytopenia, dyslipidemia, CVA with aphasia S/P PEG and recent admission here for bilateral pneumonia presents from long-term with alteration in mental status, respiratory distress, and hypoxia. As per EMS at his baseline patient is responsive but confused however, now he is having respiratory distress and responding only to painful stimuli. Patient is tachypnic with a saturation of 89 to 90% on non-rebreather. Initial systolic pressure 160s. Patient also having intermittent coughing with accessory muscle use. Decision made to intubate and place a central line for resuscitation and stabilization. [facility] paperwork was not provided. Previous medical record reviewed and patient had a similar presentation and was admitted here November 04 until November 11 with a diagnosis of bilateral pneumonia and sepsis. He also required blood transfusion and central line placement however, he was not intubated at that time. As per medical record patient's power of commercial litigation attorney is his daughter Katharina and patient is last documented to be full code during previous admission I have been consulted for critical care management. History and documentation per medical records. Unable to obtain any information from the patient who is orally intubated at this time ROS: Stated complaint: SEPSIS Other details as noted in HPI Comment: Unobtainable due to patient's medical conditions - Past Medical History Previous Medical History?: Yes Hx Hypertension: Yes Hx Renal Disease: Yes (stage 3. ARF) Hx Dementia: Yes Additional medical history: enlarged prostate, aspiration Pneumonia, Sepsis(December 2019) - Surgical History Additional Surgical History: cataracts - Social History Smoking Status: Unknown if ever smoked Medications and Allergies Allergies Allergy/AdvReac Type Severity Reaction Status Date / Time No Known Allergies Allergy Unverified 07/23/13 13:35 Home Medications Medication Instructions Recorded Confirmed Last Taken Type AtorvaSTATin [Lipitor] 40 mg PO QHS 09/09/19 12/12/19 Unknown History Cyanocobalamin [Vitamin B-12] 1,000 mcg IM QMONTH 09/09/19 12/12/19 Unknown History Finasteride [Proscar] 5 mg PO QHS 09/09/19 12/12/19 Unknown History Folic Acid 1 mg PO DAILY 09/09/19 12/12/19 Unknown History Vit-Fe Fumar-FA [ 1 tab PO DAILY 09/09/19 12/12/19 Unknown History Vitamin] allopurinoL [Zyloprim] 300 mg PO QDAY 09/09/19 12/12/19 Unknown History Lansoprazole Solutab [Prevacid 30 mg FEEDTUBE QDAY 30 Days 10/09/19 12/12/19 Unknown Rx Solutab] tab.rapdis Metoprolol Xl [Metoprolol 25 mg PO QDAY #30 tablet 10/09/19 12/12/19 Unknown Rx SUCCINATE ER TAB] Tamsulosin [Flomax] 0.4 mg PO QDAY #30 capsule 10/09/19 12/12/19 Unknown Rx Active Meds: Active Medications Acetaminophen (Tylenol) 650 mg PO Q4H PRN PRN Reason: Pain MILD(1-3)/Fever >100.5/BRUSH Albuterol/Ipratropium (Duoneb *Not For Prn Use*) 1 ampul IH Q6HRT [facility] Allopurinol (Zyloprim) 300 mg PO QDAY [facility] Atorvastatin Calcium (Lipitor) 40 mg PO QHS [facility] Cyanocobalamin (Vitamin B-12) 1,000 mcg IM QMONTH [facility] Famotidine (Pepcid) 20 mg IV DAILY [facility] Folic Acid (Folvite) 1 mg PO DAILY [facility] Heparin Sodium (Porcine) (Heparin) 5,000 unit SUB-Q Q8HR [facility] Hydrophilic Ointment (Vaseline Lip Therapy) 1 applic TP Q2HR PRN PRN Reason: Dry Lips Norepinephrine (Levophed Drip 4 Mg/Ns 250 Ml) 4 mg in 250 mls @ 7.5 mls/hr IV TITR [facility]; Protocol Last Titration: 12/12/19 08:46 Dose: 22 mcg/min, 82.5 mls/hr Documented by: Vancomycin HCl 1,250 mg/ (Sodium Chloride) 275 mls @ 166.667 mls/hr IV Q24H [facility] Cefepime HCl (Cefepime/Ns 2 Gm/100 Ml) 2 gm in 100 mls @ 200 mls/hr IV Q12H [facility]; Protocol Lorazepam 100 mg/ Sodium Chloride/ Miscellaneous Information 100 mls @ 1 mls/hr IV TITR [facility]; Protocol Last Admin: 12/12/19 07:36 Dose: 1 mg/hr, 1 mls/hr Documented by: Dextrose/Sodium Chloride (D5ns) 1,000 mls @ 75 mls/hr IV DIRECT [facility] Lorazepam (Ativan) 2 mg IV Q10MIN PRN PRN Reason: Agitation Last Admin: 12/12/19 07:36 Dose: 2 mg Documented by: Morphine Sulfate (Morphine) 2 mg IV Q4H PRN PRN Reason: Pain, Moderate (4-6) Multi-Ingred Cream/Lotion/Oil/Oint (Artificial Tears Ophth Oint) 1 applic OU Q4HR PRN PRN Reason: Dry Eye(s) Ondansetron HCl (Zofran) 4 mg IV Q8H PRN PRN Reason: Nausea And Vomiting Sodium Chloride (Sodium Chloride Flush Syringe 10 Ml) 10 ml IV BID AY[facility] Sodium Chloride (Sodium Chloride Flush Syringe 10 Ml) 10 ml IV PRN PRN PRN Reason: LINE FLUSH Review of Systems ROS unobtainable: due to endotracheal tube, due to mental status Physical Examination Vital signs: Vital Signs Temp Pulse Resp BP Pulse Ox 95.5 F L 128 H 16 65/39 89 12/12/19 04:21 12/12/19 04:21 12/12/19 04:21 12/12/19 04:21 12/12/19 04:21 Reviewed General appearance: no acute distress, other (chronically ill looking, atraumatic, normocephalic) Eyes: other (orally intubated ETT at 23cm, no patient-ventilator dys-synchrony) ENT: oropharynx moist Neck: supple, no JVD Effort: normal Ascultation: Bilateral: diminished breath sounds, rhonchi Cardiovascular: regular rate and rhythm, other (S1,S2, no murmurs) Gastrointestinal: normoactive bowel sounds, soft, non-tender, other (PEG in place) Integumentary: normal Extremities: no cyanosis, no edema unable to assess other (unable to assess) Results - Laboratory Findings CBC and BMP: 12/15/19 05:30 12/15/19 05:30 ABG ABG pH 7.320 pH Units (7.350-7.450) L 12/12/19 05:00 ABG pCO2 36.1 mm Hg 12/12/19 05:00 ABG pO2 95.6 mm Hg (80.0-90.0) H 12/12/19 05:00 ABG O2 Saturation 99.5 % (95.0-99.0) H 12/12/19 05:00 PT/INR, D-dimer PT 15.1 Sec. (12.2-14.9) H 12/12/19 05:00 INR 1.17 (0.87-1.13) H 12/12/19 05:00 Abnormal lab findings: Abnormal Labs 12/12/19 12/12/19 12/12/19 04:35 05:00 05:00 RBC 2.39 L Hgb 7.7 L Hct 23.1 L MCV 97 H RDW 18.8 H Lymph % (Auto) 9.9 L Lymph # 0.5 L Seg Neutrophils % 86.5 H PT INR ABG pH ABG pO2 ABG HCO3 ABG O2 Saturation ABG Base Excess ABG Hemoglobin Oxyhemoglobin Carbon Dioxide 19 L BUN 51 H Creatinine 1.9 H Glucose 117 H POC Glucose 129 H Lactic Acid AST 46 H ALT 72 H Troponin T 0.080 H Albumin 2.2 L LDL Cholesterol Direct 38 L 12/12/19 12/12/19 12/12/19 05:00 05:00 05:00 RBC Hgb Hct MCV RDW Lymph % (Auto) Lymph # Seg Neutrophils % PT 15.1 H INR 1.17 H ABG pH 7.320 L ABG pO2 95.6 H ABG HCO3 18.2 L ABG O2 Saturation 99.5 H ABG Base Excess -7.2 L ABG Hemoglobin 7.3 L Oxyhemoglobin 94.9 L Carbon Dioxide BUN Creatinine Glucose POC Glucose Lactic Acid 7.90 H* AST ALT Troponin T Albumin LDL Cholesterol Direct 12/12/19 12/12/19 07:04 08:10 RBC Hgb Hct MCV RDW Lymph % (Auto) Lymph # Seg Neutrophils % PT INR ABG pH ABG pO2 ABG HCO3 ABG O2 Saturation ABG Base Excess ABG Hemoglobin Oxyhemoglobin Carbon Dioxide BUN Creatinine Glucose POC Glucose Lactic Acid 7.30 H* 6.40 H* AST ALT Troponin T Albumin LDL Cholesterol Direct - Diagnostic Findings Chest x-ray: image reviewed Assessment and Plan Severe Sepsis with b/l PNA (HCAP)-septic shock - Sepsis with PNA, tachycardia, tachypnea, and lactic acidosis Acute hypoxic respiratory failure on MVS Chronic kidney disease Anemia Thrombocytopenia - EF 45-50% on 10/2019 CVA with aphasia on background of dementia Oropharyngeal dysphagia s/p PEG -Wean vasopressor support for MAP>65 -Continue with MVS, Lung protective strategies, monitor airway pressures -VAP bundle addressed -Aspiration precautions, HOB>40 -Daily assessment for readiness for SBT -Titrate sedation for RAAS -1 to -2 -VTE prophylaxis -Stress ulcer prophylaxis - Initiate enteric nutrition Monitor glycemic control, with target blood glucose 140-180 mg/dL while critically ill. Avoid hypoglycemia -RD consult placed - Wean supplemental oxygen for target O2 sat's > 90% -Adjust minute ventilation for better gas exchange -ABG and CXR in am -Follow cultures and adjust antibiotic therapy for SAMMIE and culture results -Avoid nephrotoxins, adjust all medications for GFR and CrCL - continue bronchodilators with pulmonary hygiene per RT - continue to avoid benzodiazepines to reduce the possibility of delirium - prn analgesia per CPOT score - Maintenance of sleep-wake cycle, avoid delirium - PT/OT/ROM exercises - continue mobility protocol and skin assessment per protocol for pressure ulcer prevention - Monitor hemodynamics closely - continue other care per attending / other consultants CONDITION: CRITICAL PROGNOSIS: GUARDED CODE STATUS: FULL CODE The high probability of a clinically significant, sudden or life-threatening deterioration of the [respiratory, cardiovascular] system(s) required my full and direct attention, intervention and personal management. The aggregate critical care time was [35] minutes without overlap. Time includes spent on; [x] Data Review and interpretation [x] Patient assessment and monitoring of vital signs [x] Documentation [x] Medication orders and management
[2019-12-12] MEDS: allopurinoL 300 MG TAB PO SCH (10:00)
[2019-12-12] MEDS: FAMOTIDINE 20 MG/2 ML INJ IV SCH (10:00)
[2019-12-12] MEDS: FOLIC ACID 1 MG TAB PO SCH (10:00)
[2019-12-12] MEDS ORDERED: CYANOCOBALAMIN (VIT B-12) 1000 MCG/1 ML INJ IM SCH (10:00)
[2019-12-12] MEDS ORDERED: SODIUM CHLORIDE 0.9% 1000 ML 1,000 ML IV SCH (10:30)
[2019-12-12] MEDS ORDERED: SODIUM BICARBONATE 325 MG TAB FEEDTUBE PRN (12:32)
[2019-12-12] MEDS ORDERED: SIMPLE SYRUP 15 ML FEEDTUBE PRN (12:32)
[2019-12-12] MEDS ORDERED: LIPASE 10,500/PROTEASE 25,000/AMYLASE 43,750 (UNITS) DR CAP FEEDTUBE PRN (12:32)
[2019-12-12] MEDS: SODIUM CHLORIDE 0.9% 1000 ML 1,000 ML IV SCH (12:40)
[2019-12-12] MEDS: IPRATROPIUM/ALBUTEROL SULFATE 3 ML AMPUL.NEB IH SCH ×3 (12:44→21:26)
[2019-12-12] MEDS: HEPARIN 5,000 UNIT/1 ML VIAL SUB-Q SCH ×2 (13:23→21:38)
[2019-12-12] MEDS: SIMPLE SYRUP 15 ML FEEDTUBE PRN (18:40)
[2019-12-12] MEDS: CEFEPIME/NS 2 GM/100 ML 2 GM/100 ML BAG IV SCH (18:40)
[2019-12-12] MEDS: VASOPRESSIN 20 UNIT in SODIUM CHLORIDE 0.9% 100 ML IV SCH (19:20)
[2019-12-13] MEDS: SODIUM CHLORIDE 0.9% 1000 ML 1,000 ML IV SCH ×2 (02:28→17:36)
[2019-12-13] MEDS: NORepinephrine/NS 4 MG-250 ML 4 MG/250 ML BAG IV SCH (02:46)
[2019-12-13] MEDS: VASOPRESSIN 20 UNIT in SODIUM CHLORIDE 0.9% 100 ML IV SCH ×2 (03:08→18:24)
--- NOTE | 2019-12-13 03:21 | XRay Report ---
CHEST 1 VIEW INDICATION / CLINICAL INFORMATION: follow up respiratory failure. COMPARISON: 12/12/2019 FINDINGS: SUPPORT DEVICES: Stable, satisfactory device positioning. HEART / MEDIASTINUM: No significant abnormality. LUNGS / PLEURA: Previously noted diffuse bilateral pulmonary opacities persist but do appear to be mi nimally improved. Trace bilateral pleural effusions persist. No pneumothorax. ADDITIONAL FINDINGS: No significant additional findings. IMPRESSION: 1. Persistent diffuse bilateral pulmonary opacities, minimally improved. Signer Name: Meaghan Hernandes MD Signed: 12/13/2019 3:17 AM Workstation Name: [id number]
[2019-12-13 05:07] LABS: Basophils # (Auto) 0.1 K/mm3 (0.0-0.1); Basophils % (Auto) 0.5 % (0.0-1.8); Eosinophils # (Auto) 0.3 K/mm3 (0.0-0.4); Eosinophils % (Auto) 3.2 % (0.0-4.3); Hematocrit 21.6 % (35.5-45.6); Hemoglobin 7.1 gm/dl (11.8-15.2); Lymphocytes # (Auto) 1.1 K/mm3 (1.2-5.4); Lymphocytes % (Auto) 11.6 % (13.4-35.0); Mean Corpuscular HGB Conc 33 % (32-34); Mean Corpuscular Volume 96 fl (84-94); Monocytes # (Auto) 0.5 K/mm3 (0.0-0.8); Monocytes % (Auto) 5.5 % (0.0-7.3); Platelet Count 135 K/mm3 (140-440); Red Blood Count 2.24 M/mm3 (3.65-5.03); Red Cell Distribution Width 19.9 % (13.2-15.2)
[2019-12-13] MEDS: VANCOMYCIN 1,250 MG in SODIUM CHLORIDE 0.9% 250ML 250 ML IV SCH (05:22)
[2019-12-13] MEDS: CEFEPIME/NS 2 GM/100 ML 2 GM/100 ML BAG IV SCH ×2 (05:22→18:44)
[2019-12-13] MEDS: HEPARIN 5,000 UNIT/1 ML VIAL SUB-Q SCH ×3 (06:16→22:03)
[2019-12-13 06:21] LABS: ABG Base Excess -7.2 mmol/L (-2.0-3.0); ABG HCO3 17.3 mmol/L (20.0-26.0); ABG Methemoglobin 0.6 % (0.0-1.5); ABG Oxygen Saturation 97.1 % (95.0-99.0); ABG PCO2 30.6 mm Hg; ABG PH 7.37 pH Units (7.350-7.450); ABG PO2 88.1 mm Hg (80.0-90.0)
[2019-12-13] MEDS: IPRATROPIUM/ALBUTEROL SULFATE 3 ML AMPUL.NEB IH SCH ×4 (06:26→21:02)
[2019-12-13] MEDS: allopurinoL 300 MG TAB PO SCH (10:18)
[2019-12-13] MEDS: FAMOTIDINE 20 MG/2 ML INJ IV SCH (10:18)
[2019-12-13] MEDS: FOLIC ACID 1 MG TAB PO SCH (10:18)
[2019-12-13] MEDS: ASPIRIN 81 MG TAB CHEW PO SCH (10:19)
--- NOTE | 2019-12-13 12:59 | Progress Note ---
Subjective Date of service: 12/13/19 Objective Vital Signs - 12hr 12/13/19 12/13/19 12/13/19 01:00 01:11 01:21 Temperature Pulse Rate 119 H 115 H 114 H Pulse Rate [ Bilateral] Pulse Rate [ From Monitor] Respiratory 32 H 32 H 30 H Rate Respiratory Rate [Bilateral ] Blood Pressure 104/62 104/62 102/52 O2 Sat by Pulse 94 94 93 Oximetry 12/13/19 12/13/19 12/13/19 01:30 01:41 01:51 Temperature Pulse Rate 115 H 113 H 114 H Pulse Rate [ Bilateral] Pulse Rate [ From Monitor] Respiratory 32 H 29 H 32 H Rate Respiratory Rate [Bilateral ] Blood Pressure 93/52 93/52 98/51 O2 Sat by Pulse 95 95 Oximetry 12/13/19 12/13/19 12/13/19 02:00 02:11 02:21 Temperature Pulse Rate 109 H 108 H 108 H Pulse Rate [ Bilateral] Pulse Rate [ 108 H From Monitor] Respiratory 30 H 26 H 25 H Rate Respiratory Rate [Bilateral ] Blood Pressure 89/49 92/49 92/53 O2 Sat by Pulse 96 96 97 Oximetry 12/13/19 12/13/19 12/13/19 02:30 02:41 02:51 Temperature Pulse Rate 108 H 107 H 110 H Pulse Rate [ Bilateral] Pulse Rate [ From Monitor] Respiratory 29 H 29 H 29 H Rate Respiratory Rate [Bilateral ] Blood Pressure 94/53 94/53 92/49 O2 Sat by Pulse 97 97 Oximetry 12/13/19 12/13/19 12/13/19 03:00 03:11 03:21 Temperature Pulse Rate 108 H 105 H 105 H Pulse Rate [ Bilateral] Pulse Rate [ From Monitor] Respiratory 32 H 29 H 25 H Rate Respiratory Rate [Bilateral ] Blood Pressure 100/61 100/61 103/59 O2 Sat by Pulse 97 97 98 Oximetry 12/13/19 12/13/19 12/13/19 03:30 03:41 03:51 Temperature Pulse Rate 106 H 107 H 104 H Pulse Rate [ Bilateral] Pulse Rate [ From Monitor] Respiratory 22 24 28 H Rate Respiratory Rate [Bilateral ] Blood Pressure 112/68 112/68 114/69 O2 Sat by Pulse 99 98 99 Oximetry 12/13/19 12/13/19 12/13/19 04:00 04:11 04:21 Temperature 98.4 F Pulse Rate 102 H 108 H 106 H Pulse Rate [ Bilateral] Pulse Rate [ 104 H From Monitor] Respiratory 26 H 32 H 24 Rate Respiratory Rate [Bilateral ] Blood Pressure 108/60 108/60 108/60 O2 Sat by Pulse 98 99 99 Oximetry 12/13/19 12/13/19 12/13/19 04:30 04:41 04:51 Temperature Pulse Rate 107 H 114 H 110 H Pulse Rate [ Bilateral] Pulse Rate [ From Monitor] Respiratory 34 H 23 26 H Rate Respiratory Rate [Bilateral ] Blood Pressure 121/69 121/69 131/66 O2 Sat by Pulse 98 98 98 Oximetry 12/13/19 12/13/19 12/13/19 05:00 05:11 05:21 Temperature Pulse Rate 106 H 106 H 104 H Pulse Rate [ Bilateral] Pulse Rate [ From Monitor] Respiratory 28 H 32 H 32 H Rate Respiratory Rate [Bilateral ] Blood Pressure 107/53 115/60 131/66 O2 Sat by Pulse 98 97 98 Oximetry 12/13/19 12/13/19 12/13/19 05:30 05:41 05:50 Temperature Pulse Rate 104 H 103 H 104 H Pulse Rate [ Bilateral] Pulse Rate [ From Monitor] Respiratory 25 H 22 29 H Rate Respiratory Rate [Bilateral ] Blood Pressure 119/79 114/59 118/69 O2 Sat by Pulse 99 98 97 Oximetry 12/13/19 12/13/19 12/13/19 06:00 06:11 06:21 Temperature Pulse Rate 106 H 108 H 107 H Pulse Rate [ Bilateral] Pulse Rate [ 107 H From Monitor] Respiratory 31 H 31 H 28 H Rate Respiratory Rate [Bilateral ] Blood Pressure 106/54 107/51 109/54 O2 Sat by Pulse 98 97 97 Oximetry 12/13/19 12/13/19 12/13/19 06:30 06:41 06:51 Temperature Pulse Rate 106 H 104 H 101 H Pulse Rate [ Bilateral] Pulse Rate [ From Monitor] Respiratory 31 H 29 H 25 H Rate Respiratory Rate [Bilateral ] Blood Pressure 116/63 116/63 113/68 O2 Sat by Pulse 97 98 99 Oximetry 12/13/19 12/13/19 12/13/19 07:00 07:11 07:21 Temperature Pulse Rate 99 H 101 H 103 H Pulse Rate [ Bilateral] Pulse Rate [ From Monitor] Respiratory 24 25 H 27 H Rate Respiratory Rate [Bilateral ] Blood Pressure 123/63 123/63 114/67 O2 Sat by Pulse 98 99 99 Oximetry 12/13/19 12/13/19 12/13/19 07:30 07:41 07:51 Temperature Pulse Rate 103 H 103 H 102 H Pulse Rate [ Bilateral] Pulse Rate [ From Monitor] Respiratory 18 25 H 26 H Rate Respiratory Rate [Bilateral ] Blood Pressure 128/65 128/65 118/66 O2 Sat by Pulse 97 98 98 Oximetry 12/13/19 12/13/19 12/13/19 08:00 08:11 08:21 Temperature 97.5 F L Pulse Rate 102 H 105 H 106 H Pulse Rate [ Bilateral] Pulse Rate [ From Monitor] Respiratory 26 H 24 29 H Rate Respiratory Rate [Bilateral ] Blood Pressure 104/52 104/52 90/51 O2 Sat by Pulse 98 98 97 Oximetry 12/13/19 12/13/19 12/13/19 08:30 08:41 08:42 Temperature Pulse Rate 105 H 106 H 102 H Pulse Rate [ Bilateral] Pulse Rate [ From Monitor] Respiratory 29 H 22 Rate Respiratory Rate [Bilateral ] Blood Pressure 90/55 90/55 88/61 O2 Sat by Pulse 98 100 Oximetry 12/13/19 12/13/19 12/13/19 08:51 09:00 09:02 Temperature Pulse Rate 102 H 103 H Pulse Rate [ 104 H Bilateral] Pulse Rate [ From Monitor] Respiratory 18 26 H Rate Respiratory 24 Rate [Bilateral ] Blood Pressure 88/61 99/57 O2 Sat by Pulse 99 98 Oximetry 12/13/19 12/13/19 12/13/19 09:11 09:21 09:30 Temperature Pulse Rate 103 H 102 H 102 H Pulse Rate [ Bilateral] Pulse Rate [ From Monitor] Respiratory 18 25 H 20 Rate Respiratory Rate [Bilateral ] Blood Pressure 99/57 90/57 92/62 O2 Sat by Pulse 99 99 Oximetry 12/13/19 12/13/19 12/13/19 09:41 10:00 10:30 Temperature Pulse Rate 96 H 93 H 91 H Pulse Rate [ Bilateral] Pulse Rate [ From Monitor] Respiratory 25 H 27 H 22 Rate Respiratory Rate [Bilateral ] Blood Pressure 92/62 95/58 105/64 O2 Sat by Pulse 99 Oximetry 12/13/19 12/13/19 11:00 12:11 Temperature Pulse Rate 90 87 Pulse Rate [ Bilateral] Pulse Rate [ From Monitor] Respiratory 21 Rate Respiratory Rate [Bilateral ] Blood Pressure 114/74 103/71 O2 Sat by Pulse 99 100 Oximetry CBC and BMP: 12/13/19 04:56 12/13/19 04:56 ABG, PT/INR, D-dimer: ABG ABG pH 7.370 pH Units (7.350-7.450) 12/13/19 05:40 ABG pCO2 30.6 mm Hg 12/13/19 05:40 ABG pO2 88.1 mm Hg (80.0-90.0) 12/13/19 05:40 ABG O2 Saturation 97.1 % (95.0-99.0) 12/13/19 05:40 PT/INR, D-dimer PT 15.1 Sec. (12.2-14.9) H 12/12/19 05:00 INR 1.17 (0.87-1.13) H 12/12/19 05:00 Abnormal lab findings: Abnormal Labs 12/12/19 12/12/19 12/12/19 04:35 05:00 05:00 RBC 2.39 L Hgb 7.7 L Hct 23.1 L MCV 97 H RDW 18.8 H Plt Count Lymph % (Auto) 9.9 L Lymph # 0.5 L Seg Neutrophils % 86.5 H Seg Neutrophils # PT INR ABG pH ABG pO2 ABG HCO3 ABG O2 Saturation ABG Base Excess ABG Hemoglobin Oxyhemoglobin Chloride Carbon Dioxide 19 L BUN 51 H Creatinine 1.9 H Glucose 117 H POC Glucose 129 H Lactic Acid AST 46 H ALT 72 H Troponin T 0.080 H Albumin 2.2 L LDL Cholesterol Direct 38 L 12/12/19 12/12/19 12/12/19 05:00 05:00 05:00 RBC Hgb Hct MCV RDW Plt Count Lymph % (Auto) Lymph # Seg Neutrophils % Seg Neutrophils # PT 15.1 H INR 1.17 H ABG pH 7.320 L ABG pO2 95.6 H ABG HCO3 18.2 L ABG O2 Saturation 99.5 H ABG Base Excess -7.2 L ABG Hemoglobin 7.3 L Oxyhemoglobin 94.9 L Chloride Carbon Dioxide BUN Creatinine Glucose POC Glucose Lactic Acid 7.90 H* AST ALT Troponin T Albumin LDL Cholesterol Direct 12/12/19 12/12/19 12/12/19 07:04 08:10 15:01 RBC Hgb Hct MCV RDW Plt Count Lymph % (Auto) Lymph # Seg Neutrophils % Seg Neutrophils # PT INR ABG pH ABG pO2 ABG HCO3 ABG O2 Saturation ABG Base Excess ABG Hemoglobin Oxyhemoglobin Chloride Carbon Dioxide BUN Creatinine Glucose POC Glucose Lactic Acid 7.30 H* 6.40 H* 2.90 H* AST ALT Troponin T Albumin LDL Cholesterol Direct 12/12/19 12/12/19 12/13/19 18:48 Unknown 04:56 RBC 2.24 L Hgb 7.1 L Hct 21.6 L MCV 96 H RDW 19.9 H Plt Count 135 L Lymph % (Auto) 11.6 L Lymph # 1.1 L Seg Neutrophils % 79.2 H Seg Neutrophils # 7.8 H PT INR ABG pH ABG pO2 ABG HCO3 ABG O2 Saturation ABG Base Excess ABG Hemoglobin Oxyhemoglobin Chloride Carbon Dioxide BUN Creatinine Glucose POC Glucose 62 L Lactic Acid 4.30 H* AST ALT Troponin T Albumin LDL Cholesterol Direct 12/13/19 12/13/19 04:56 05:40 RBC Hgb Hct MCV RDW Plt Count Lymph % (Auto) Lymph # Seg Neutrophils % Seg Neutrophils # PT INR ABG pH ABG pO2 ABG HCO3 17.3 L ABG O2 Saturation ABG Base Excess -7.2 L ABG Hemoglobin 7.8 L Oxyhemoglobin Chloride 111.8 H Carbon Dioxide 16 L BUN 39 H Creatinine 1.6 H Glucose 101 H POC Glucose Lactic Acid AST ALT Troponin T Albumin LDL Cholesterol Direct
--- NOTE | 2019-12-13 13:15 | Progress Note ---
Assessment and Plan Assessment and plan: Sepsis with b/l PNA (HCAP) - Sepsis with PNA, tachycardia, tachypnea, and lactic acidosis - start on iv abx -Blood cultures are negative so far Acute hypoxic respiratory failure - intubated, consulted pulmonary - placed on scheduled nebs Septic shock, - on levophed, also cont iv fluid dementia, h/o chronic kidney disease, - Cr at his baseline, cont to monitor, iv fluid thrombocytopenia with anemia - monitor CBC -We will do fecal occult blood test -His daughter said he has history of gastritis -If fecal occult blood test is positive will consult GI dyslipidemia, cont statin NSTEMI type 2 -chronically elevated, monitor for now - EF 45-50% on 10/27 CVA with aphasia s/p PEG placement - cont asp, statin, supportive care - start TF DVT, heparin The high probability of a clinically significant, sudden or life threatening deterioration of the [cardiovascular, respiratory] system(s) required my full and direct attention, intervention and personal management. The aggregate critical care time was [32] minutes. This time is in addition to time spent performing reported procedures but includes the following: [x] Data Review and interpretation [x] Patient assessment and monitoring of vital signs [x] Documentation [x] Medication orders and management History Interval history: Patient was seen and evaluated this morning, patient is intubated and on mechanical ventilation. Patient is still on pressors. Hospitalist Physical - Physical exam Narrative exam: Patient is intubated and on mechanical ventilation. The patient appeared well nourished and normally developed. Vital signs as documented. Head exam is unremarkable. No scleral icterus . Neck is without jugular venous distension, thyromegaly, or carotid bruits. Lungs are clear to auscultation. Cardiac exam reveals regular rate and Rhythm. Abdominal exam reveals normal bowel sounds, nontender, no organomegaly. Extremities are nonedematous and both femoral and pedal pulses are normal. 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 - Constitutional Vitals: Temp Pulse Resp BP Pulse Ox 97.5 F L 87 21 103/71 100 12/13/19 08:00 12/13/19 12:11 12/13/19 11:00 12/13/19 12:11 12/13/19 12:11 General appearance: Present: other (intubated and sedated) Results - Labs CBC & Chem 7: 12/13/19 04:56 12/13/19 04:56 Labs: Laboratory Last Values WBC 9.9 K/mm3 (4.5-11.0) 12/13/19 04:56 RBC 2.24 M/mm3 (3.65-5.03) L 12/13/19 04:56 Hgb 7.1 gm/dl (11.8-15.2) L 12/13/19 04:56 Hct 21.6 % (35.5-45.6) L 12/13/19 04:56 MCV 96 fl (84-94) H 12/13/19 04:56 MCH 32 pg (28-32) 12/13/19 04:56 MCHC 33 % (32-34) 12/13/19 04:56 RDW 19.9 % (13.2-15.2) H 12/13/19 04:56 Plt Count 135 K/mm3 (140-440) L 12/13/19 04:56 Lymph % (Auto) 11.6 % (13.4-35.0) L 12/13/19 04:56 [place] % (Auto) 5.5 % (0.0-7.3) 12/13/19 04:56 Eos % (Auto) 3.2 % (0.0-4.3) 12/13/19 04:56 Baso % (Auto) 0.5 % (0.0-1.8) 12/13/19 04:56 Lymph # 1.1 K/mm3 (1.2-5.4) L 12/13/19 04:56 [place] # 0.5 K/mm3 (0.0-0.8) 12/13/19 04:56 Eos # 0.3 K/mm3 (0.0-0.4) 12/13/19 04:56 Baso # 0.1 K/mm3 (0.0-0.1) 12/13/19 04:56 Seg Neutrophils % 79.2 % (40.0-70.0) H 12/13/19 04:56 Seg Neutrophils # 7.8 K/mm3 (1.8-7.7) H 12/13/19 04:56 PT 15.1 Sec. (12.2-14.9) H 12/12/19 05:00 INR 1.17 (0.87-1.13) H 12/12/19 05:00 APTT 28.0 Sec. (24.2-36.6) 12/12/19 05:00 ABG pH 7.370 pH Units (7.350-7.450) 12/13/19 05:40 ABG pCO2 30.6 mm Hg 12/13/19 05:40 ABG pO2 88.1 mm Hg (80.0-90.0) 12/13/19 05:40 ABG HCO3 17.3 mmol/L (20.0-26.0) L 12/13/19 05:40 ABG O2 Saturation 97.1 % (95.0-99.0) 12/13/19 05:40 ABG O2 Content 10.6 (0.0-44) 12/13/19 05:40 ABG Base Excess -7.2 mmol/L (-2.0-3.0) L 12/13/19 05:40 ABG Hemoglobin 7.8 gm/dl (14.0-18.0) L 12/13/19 05:40 ABG Carboxyhemoglobin 1.5 % (0.0-5.0) 12/13/19 05:40 ABG Methemoglobin 0.6 % (0.0-1.5) 12/13/19 05:40 VBG pH 7.320 (7.320-7.420) 12/12/19 05:00 Oxyhemoglobin 95.1 % (95.0-99.0) 12/13/19 05:40 FiO2 30 % 12/13/19 05:40 Sodium 140 mmol/L (137-145) 12/13/19 04:56 Potassium 4.4 mmol/L (3.6-5.0) 12/13/19 04:56 Chloride 111.8 mmol/L (98-107) H 12/13/19 04:56 Carbon Dioxide 16 mmol/L (22-30) L 12/13/19 04:56 Anion Gap 17 mmol/L 12/13/19 04:56 BUN 39 mg/dL (9-20) H 12/13/19 04:56 Creatinine 1.6 mg/dL (0.8-1.5) H 12/13/19 04:56 Estimated GFR 51 ml/min 12/13/19 04:56 BUN/Creatinine Ratio 24 % 12/13/19 04:56 Glucose 101 mg/dL (75-100) H 12/13/19 04:56 POC Glucose 94 (70-105) 12/13/19 06:04 Lactic Acid 1.60 mmol/L (0.7-2.0) 12/13/19 04:56 Calcium 9.0 mg/dL (8.4-10.2) 12/13/19 04:56 Total Bilirubin 0.30 mg/dL (0.1-1.2) 12/12/19 05:00 AST 46 units/L (5-40) H 12/12/19 05:00 ALT 72 units/L (7-56) H 12/12/19 05:00 Alkaline Phosphatase 84 units/L (35-129) 12/12/19 05:00 Troponin T 0.080 ng/mL (0.00-0.029) H 12/12/19 05:00 Total Protein 6.4 g/dL (6.3-8.2) 12/12/19 05:00 Albumin 2.2 g/dL (3.9-5) L 12/12/19 05:00 Albumin/Globulin Ratio 0.5 % 12/12/19 05:00 Triglycerides 30 mg/dL (2-149) 12/12/19 05:00 Cholesterol 82 mg/dL (50-199) 12/12/19 05:00 LDL Cholesterol Direct 38 mg/dL (50-130) L 12/12/19 05:00 HDL Cholesterol 45 mg/dL (40-59) 12/12/19 05:00 Cholesterol/HDL Ratio 1.82 % 12/12/19 05:00 Urine Color Yellow (Yellow) 12/12/19 Unknown Urine Turbidity Cloudy (Clear) 12/12/19 Unknown Urine pH 5.0 (5.0-7.0) 12/12/19 Unknown Ur Specific [place] 1.014 (1.003-1.030) 12/12/19 Unknown Urine Protein <15 mg/dl mg/dL (Negative) 12/12/19 Unknown Urine Glucose (UA) Neg mg/dL (Negative) 12/12/19 Unknown Urine Ketones Neg mg/dL (Negative) 12/12/19 Unknown Urine Blood Neg (Negative) 12/12/19 Unknown Urine Nitrite Neg (Negative) 12/12/19 Unknown Urine Bilirubin Neg (Negative) 12/12/19 Unknown Urine Urobilinogen < 2.0 mg/dL (<2.0) 12/12/19 Unknown Ur Leukocyte Esterase Neg (Negative) 12/12/19 Unknown Urine WBC (Auto) 2.0 /HPF (0.0-6.0) 12/12/19 Unknown Urine RBC (Auto) 3.0 /HPF (0.0-6.0) 12/12/19 Unknown U Epithel Cells (Auto) 1.0 /HPF (0-13.0) 12/12/19 Unknown Urine Bacteria (Auto) 1+ /HPF (Negative) 12/12/19 Unknown Hyaline Casts 1 /LPF 12/12/19 Unknown Urine Mucus Few /HPF 12/12/19 Unknown Blood Type A POSITIVE 12/12/19 05:00 Antibody Screen Negative 12/12/19 05:00 Active Medications - Current Medications Current Medications: Generic Name Dose Route Start Last Admin Trade Name Freq PRN Reason Stop Dose Admin Acetaminophen 650 mg 12/12/19 07:52 Tylenol PO Q4H PRN Pain MILD(1-3)/Fever >100.5/BRUSH Albuterol/Ipratropium 1 ampul 12/12/19 08:00 12/13/19 08:47 Duoneb *Not For Prn Use* IH 1 ampul Q6HRT AYUSH Administration Allopurinol 300 mg 12/12/19 10:00 12/13/19 10:18 Zyloprim PO 300 mg QDAY AYUSH Administration Lipase/Protease/Amylase 1 each 12/12/19 12:32 Pancreaze 10,500 Unit FEEDTUBE PRN PRN For Clogged Feeding Tube Aspirin 81 mg 12/13/19 10:00 12/13/19 10:19 Baby Aspirin PO 81 mg QDAY AYUSH Administration Atorvastatin Calcium 40 mg 12/12/19 22:00 12/12/19 21:37 Lipitor PO 40 mg QHS AYUSH Administration Cyanocobalamin 1,000 mcg 12/12/19 10:00 12/12/19 10:00 Vitamin B-12 IM 1,000 mcg QMONTH AYUSH Administration Famotidine 20 mg 12/12/19 10:00 12/13/19 10:18 Pepcid IV 20 mg DAILY AYUSH Administration Folic Acid 1 mg 12/12/19 10:00 12/13/19 10:18 Folvite PO 1 mg DAILY AYUSH Administration Heparin Sodium (Porcine) 5,000 unit 12/12/19 14:00 12/13/19 06:16 Heparin SUB-Q 5,000 unit Q8HR AYUSH Administration Hydrophilic Ointment 1 applic 12/12/19 05:18 Vaseline Lip Therapy TP Q2HR PRN Dry Lips Norepinephrine 4 mg in 250 mls @ 7.5 mls/hr 12/12/19 06:00 12/13/19 12:20 Levophed Drip 4 Mg/Ns 250 Ml IV 0 mcg/min TITR AYUSH 0 mls/hr Titration Protocol 2 MCG/MIN Vancomycin HCl 1,250 mg/ 275 mls @ 166.667 mls/hr 12/13/19 06:00 12/13/19 05:22 Sodium Chloride IV 166.667 mls/hr Q24H AYUSH Administration Cefepime HCl 2 gm in 100 mls @ 200 mls/hr 12/12/19 18:00 12/13/19 06:44 Cefepime/Ns 2 Gm/100 Ml IV Infused Q12H AYUSH Infusion Protocol Sodium Chloride 1,000 mls @ 75 mls/hr 12/12/19 10:30 12/13/19 02:28 Nacl 0.9% 1000 Ml IV 75 mls/hr DIRECT AYUSH Administration Vasopressin 20 unit/ Sodium 101 mls @ 9.09 mls/hr 12/12/19 19:00 12/13/19 03:08 Chloride IV 0.03 units/min TITR AYUSH 9.09 mls/hr Administration Protocol 0.03 UNITS/MIN Lorazepam 2 mg 12/12/19 07:03 12/12/19 07:36 Ativan IV 2 mg Q10MIN PRN Administration Agitation Morphine Sulfate 2 mg 12/12/19 07:52 Morphine IV Q4H PRN Pain, Moderate (4-6) Multi-Ingred Cream/Lotion/Oil/Oint 1 applic 12/12/19 05:18 Artificial Tears Ophth Oint OU Q4HR PRN Dry Eye(s) Ondansetron HCl 4 mg 12/12/19 07:52 Zofran IV Q8H PRN Nausea And Vomiting Simple Syrup 15 ml 12/12/19 12:32 12/12/19 18:40 Simple Syrup FEEDTUBE 15 ml PRN PRN Administration Hypoglycemia Simple Syrup 30 ml 12/12/19 12:32 Simple Syrup FEEDTUBE PRN PRN Hypoglycemia Sodium Bicarbonate 325 mg 12/12/19 12:32 Sodium Bicarbonate FEEDTUBE PRN PRN For Clogged Feeding Tube Sodium Chloride 10 ml 12/12/19 10:00 12/13/19 10:20 Sodium Chloride Flush Syringe 10 Ml IV 10 ml BID AYUSH Administration Sodium Chloride 10 ml 12/12/19 07:52 12/12/19 21:38 Sodium Chloride Flush Syringe 10 Ml IV 10 ml PRN PRN Administration LINE FLUSH Nutrition/Malnutrition Assess - Dietary Evaluation Nutrition/Malnutrition Findings: Nutrition Notes Start: 12/12/19 12:10 Freq: Status: Active Protocol: Document 12/13/19 10:48 (Rec: 12/13/19 10:51 [id number]) Co-Sign 12/13/19 10:48 Nutrition Notes Initial or Follow up Brief Note Current Diagnosis Acute Kidney Injury,CKD(stage I-IV),Sepsis,Hypertension, Respiratory Failure Other Pertinent Diagnosis hx CVA with dysphasia, PEG, dementia Current Diet Osmolite 1.5 at 50 ml/hr Subjective/Other Information MD consult to evaluate nutritional intake. TF initated 12/11. Nutrition Intervention Follow-Up By: 12/15/19 Additional Comments F/U for TF tolerance
[2019-12-13] MEDS: LORazepam 2 MG/ML VIAL IV PRN (22:03)
[2019-12-13] MEDS ORDERED: fentaNYL DRIP Premix 2,000 MCG/100 ML BAG IV SCH (23:45)
[2019-12-14] MEDS ORDERED: fentaNYL 100 MCG/2 ML INJ IV PRN (00:10)
[2019-12-14 05:10] LABS: ABG Base Excess -7.6 mmol/L (-2.0-3.0); ABG HCO3 17.3 mmol/L (20.0-26.0); ABG Methemoglobin 0.6 % (0.0-1.5); ABG Oxygen Saturation 98.9 % (95.0-99.0); ABG PCO2 31.8 mm Hg; ABG PH 7.353 pH Units (7.350-7.450); ABG PO2 156.5 mm Hg (80.0-90.0)
[2019-12-14] MEDS: HEPARIN 5,000 UNIT/1 ML VIAL SUB-Q SCH ×3 (05:36→21:32)
[2019-12-14] MEDS: CEFEPIME/NS 2 GM/100 ML 2 GM/100 ML BAG IV SCH (05:36)
[2019-12-14] MEDS: IPRATROPIUM/ALBUTEROL SULFATE 3 ML AMPUL.NEB IH SCH ×4 (05:38→20:26)
[2019-12-14] MEDS: VANCOMYCIN 1,250 MG in SODIUM CHLORIDE 0.9% 250ML 250 ML IV SCH (06:25)
[2019-12-14] MEDS: VASOPRESSIN 20 UNIT in SODIUM CHLORIDE 0.9% 100 ML IV SCH (06:25)
--- NOTE | 2019-12-14 06:33 | XRay Report ---
CHEST 1 VIEW INDICATION / CLINICAL INFORMATION: follow up respiratory failure. COMPARISON: 12/13/2019 FINDINGS: SUPPORT DEVICES: Stable, satisfactory device positioning. HEART / MEDIASTINUM: No significant abnormality. LUNGS / PLEURA: There continues to be bilateral pulmonary opacities. Pulmonary opacities appear sligh tly worse in the left lung base, but appear slightly improved throughout the right lung. I suspect th ere are very small bilateral pleural effusions. No pneumothorax. ADDITIONAL FINDINGS: No significant additional findings. IMPRESSION: 1. Persistent bilateral pulmonary opacities-right lung appears slightly improved with left lung base appearing slightly worse.. Signer Name: Meaghan Hernaneds MD Signed: 12/14/2019 6:29 AM Workstation Name: [id number]
[2019-12-14 07:04] LABS: Basophils % (Auto) 0.4 % (0.0-1.8); Eosinophils # (Auto) 0.2 K/mm3 (0.0-0.4); Eosinophils % (Auto) 2.1 % (0.0-4.3); Hemoglobin 6.3 gm/dl (11.8-15.2); Lymphocytes # (Auto) 0.9 K/mm3 (1.2-5.4); Lymphocytes % (Auto) 9.7 % (13.4-35.0); Mean Corpuscular HGB Conc 33 % (32-34); Mean Corpuscular Volume 98 fl (84-94); Monocytes # (Auto) 0.6 K/mm3 (0.0-0.8); Monocytes % (Auto) 6.4 % (0.0-7.3); Platelet Count 103 K/mm3 (140-440); Red Blood Count 1.98 M/mm3 (3.65-5.03)
[2019-12-14 07:19] LABS: Calcium 9.6 mg/dL (8.4-10.2)
[2019-12-14 07:20] LABS: Red Cell Distribution Width 20.3 % (13.2-15.2)
[2019-12-14 07:22] LABS: Hematocrit 19.4 % (35.5-45.6)
[2019-12-14] MEDS ORDERED: SODIUM CHLORIDE 0.9% 500 ML 500 ML IV ONE (08:00)
[2019-12-14] MEDS: NORepinephrine/NS 4 MG-250 ML 4 MG/250 ML BAG IV SCH (09:07)
[2019-12-14] MEDS: SODIUM CHLORIDE 0.9% 1000 ML 1,000 ML IV SCH (09:07)
[2019-12-14] MEDS: FOLIC ACID 1 MG TAB PO SCH (09:09)
[2019-12-14] MEDS: ASPIRIN 81 MG TAB CHEW PO SCH ×2 (09:09→10:42)
[2019-12-14] MEDS: FAMOTIDINE 20 MG/2 ML INJ IV SCH (09:09)
[2019-12-14] MEDS: allopurinoL 300 MG TAB PO SCH (09:10)
--- NOTE | 2019-12-14 12:03 | Consultation ---
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 He was sent to the emergency room from the [place] on 12/12/2019 with worsening mental status, respiratory distress and hypoxia. Patient was intubated, had a central line placed and was started on empiric antibiotics. Due to sepsis and fevers, infectious diseases was consulted. Patient is currently on pressors. Last fever was yesterday night, 101.1 F. CXR with bilateral pneumonia. Review of Systems: Unable to obtain due to mechanical ventilation, sedation Medications and Allergies Allergies Allergy/AdvReac Type Severity Reaction Status Date / Time No Known Allergies Allergy Unverified 07/23/13 13:35 Home Medications Medication Instructions Recorded Confirmed Last Taken Type AtorvaSTATin [Lipitor] 40 mg PO QHS 09/09/19 12/12/19 Unknown History Cyanocobalamin [Vitamin B-12] 1,000 mcg IM QMONTH 09/09/19 12/12/19 Unknown History Finasteride [Proscar] 5 mg PO QHS 09/09/19 12/12/19 Unknown History Folic Acid 1 mg PO DAILY 09/09/19 12/12/19 Unknown History Vit-Fe Fumar-FA [ 1 tab PO DAILY 09/09/19 12/12/19 Unknown History Vitamin] allopurinoL [Zyloprim] 300 mg PO QDAY 09/09/19 12/12/19 Unknown History Lansoprazole Solutab [Prevacid 30 mg FEEDTUBE QDAY 30 Days 10/09/19 12/12/19 Unknown Rx Solutab] tab.rapdis Metoprolol Xl [Metoprolol 25 mg PO QDAY #30 tablet 10/09/19 12/12/19 Unknown Rx SUCCINATE ER TAB] Tamsulosin [Flomax] 0.4 mg PO QDAY #30 capsule 10/09/19 12/12/19 Unknown Rx Active Meds: Active Medications Acetaminophen (Tylenol) 650 mg PO Q4H PRN PRN Reason: Pain MILD(1-3)/Fever >100.5/BRUSH Albuterol/Ipratropium (Duoneb *Not For Prn Use*) 1 ampul IH Q6HRT [facility] Last Admin: 12/14/19 08:12 Dose: 1 ampul Documented by: Allopurinol (Zyloprim) 300 mg PO QDAY [facility] Last Admin: 12/14/19 09:10 Dose: 300 mg Documented by: Lipase/Protease/Amylase (Pancrejenn Stacy 10,500 Unit) 1 each FEEDTUBE PRN PRN PRN Reason: For Clogged Feeding Tube Aspirin (Baby Aspirin) 81 mg PO QDAY [facility] Last Admin: 12/13/19 10:19 Dose: 81 mg Documented by: Atorvastatin Calcium (Lipitor) 40 mg PO QHS [facility] Last Admin: 12/13/19 22:03 Dose: 40 mg Documented by: Cyanocobalamin (Vitamin B-12) 1,000 mcg IM QMONTH [facility] Last Admin: 12/12/19 10:00 Dose: 1,000 mcg Documented by: Famotidine (Pepcid) 20 mg IV DAILY [facility] Last Admin: 12/14/19 09:09 Dose: 20 mg Documented by: Fentanyl (Sublimaze) 50 mcg IV Q10M PRN PRN Reason: Pain, Mild (1-3) Folic Acid (Folvite) 1 mg PO DAILY [facility] Last Admin: 12/14/19 09:09 Dose: 1 mg Documented by: Heparin Sodium (Porcine) (Heparin) 5,000 unit SUB-Q Q8HR [facility] Last Admin: 12/14/19 05:36 Dose: 5,000 unit Documented by: Hydrophilic Ointment (Vaseline Lip Therapy) 1 applic TP Q2HR PRN PRN Reason: Dry Lips Norepinephrine (Levophed Drip 4 Mg/Ns 250 Ml) 4 mg in 250 mls @ 7.5 mls/hr IV TITR [facility]; Protocol Last Admin: 12/14/19 09:07 Dose: 2 mcg/min, 7.5 mls/hr Documented by: Vancomycin HCl 1,250 mg/ (Sodium Chloride) 275 mls @ 166.667 mls/hr IV Q24H [facility] Last Admin: 12/14/19 06:25 Dose: 166.667 mls/hr Documented by: Cefepime HCl (Cefepime/Ns 2 Gm/100 Ml) 2 gm in 100 mls @ 200 mls/hr IV Q12H [facility]; Protocol Last Admin: 12/14/19 05:36 Dose: 200 mls/hr Documented by: Sodium Chloride (Nacl 0.9% 1000 Ml) 1,000 mls @ 75 mls/hr IV DIRECT [facility] Last Admin: 12/14/19 09:07 Dose: 75 mls/hr Documented by: Vasopressin 20 unit/ Sodium (Chloride) 101 mls @ 9.09 mls/hr IV TITR [facility]; Protocol Last Admin: 12/14/19 06:25 Dose: 0.03 units/min, 9.09 mls/hr Documented by: Fentanyl Citrate (Fentanyl Drip Premix) 2,000 mcg in 100 mls @ 7.62 mls/hr IV TITR [facility]; Protocol Last Titration: 12/14/19 01:37 Dose: 1 mcg/kg/hr, 3.81 mls/hr Documented by: Propofol (Diprivan 10 Mg/Ml) 1,000 mg in 100 mls @ 9.144 mls/hr IV TITR [facility]; Protocol Last Titration: 12/14/19 03:01 Dose: 5 mcg/kg/min, 2.286 mls/hr Documented by: Lorazepam (Ativan) 2 mg IV Q10MIN PRN PRN Reason: Agitation Last Admin: 12/13/19 22:03 Dose: 2 mg Documented by: Morphine Sulfate (Morphine) 2 mg IV Q4H PRN PRN Reason: Pain, Moderate (4-6) Multi-Ingred Cream/Lotion/Oil/Oint (Artificial Tears Ophth Oint) 1 applic OU Q4HR PRN PRN Reason: Dry Eye(s) Ondansetron HCl (Zofran) 4 mg IV Q8H PRN PRN Reason: Nausea And Vomiting Simple Syrup (Simple Syrup) 15 ml FEEDTUBE PRN PRN PRN Reason: Hypoglycemia Last Admin: 12/12/19 18:40 Dose: 15 ml Documented by: Simple Syrup (Simple Syrup) 30 ml FEEDTUBE PRN PRN PRN Reason: Hypoglycemia Sodium Bicarbonate (Sodium Bicarbonate) 325 mg FEEDTUBE PRN PRN PRN Reason: For Clogged Feeding Tube Sodium Chloride (Sodium Chloride Flush Syringe 10 Ml) 10 ml IV BID [facility] Last Admin: 03/08/20 09:10 Dose: 10 ml Documented by: Sodium Chloride (Sodium Chloride Flush Syringe 10 Ml) 10 ml IV PRN PRN PRN Reason: LINE FLUSH Last Admin: 12/12/19 21:38 Dose: 10 ml Documented by: Physical Examination - Physical Exam Narrative exam: Physical Exam: Constitutional: sedated, intubated Head, Ears, Nose: Normocephalic, atraumatic. External ears, nose normal Eyes: Conjunctivae/corneas clear. No icterus. No ptosis. Neck: Intubated Oral: intubated Cardiovascular: S1, S2 normal. Respiratory: few rhonchi b/l GI: Soft, non-tender; bowel sounds +, PEG tube present Musculoskeletal: No pedal edema, no cyanosis. Skin: No rash or abscess Hem/Lymphatic: No palpable cervical or supraclavicular nodes. No lymphangitis Psych: no agitation Neurological: sedated, intubated, on vent - Constitutional Vitals: Vital Signs Temp Pulse Resp BP Pulse Ox 97.2 F L 67 18 105/71 98 12/14/19 11:47 12/14/19 11:45 12/14/19 11:45 12/14/19 11:45 12/14/19 11:45 Temperature -Last 24 Hours Temperature 97.2 F Temperature 97.6 F Temperature 97.9 F Temperature 98.7 F Temperature 101.1 F Temperature 98 F Temperature 96.4 F Results - Labs CBC & Chem 7: 12/14/19 06:45 12/14/19 06:45 Labs: Abnormal lab results 12/12/19 12/13/19 12/13/19 Range/Units 05:00 18:05 23:24 RBC (3.65-5.03) M/mm3 Hgb (11.8-15.2) gm/dl Hct (35.5-45.6) % MCV (84-94) fl RDW (13.2-15.2) % Plt Count (140-440) K/mm3 Lymph % (Auto) (13.4-35.0) % Lymph # (1.2-5.4) K/mm3 Seg Neutrophils % (40.0-70.0) % Seg Neutrophils # (1.8-7.7) K/mm3 ABG pO2 (80.0-90.0) mm Hg ABG HCO3 (20.0-26.0) mmol/L ABG Base Excess (-2.0-3.0) mmol/L ABG Hemoglobin (14.0-18.0) gm/dl Chloride (98-107) mmol/L Carbon Dioxide (22-30) mmol/L BUN (9-20) mg/dL Creatinine (0.8-1.5) mg/dL Glucose (75-100) mg/dL POC Glucose 165 H 110 H (70-105) Crossmatch See Detail 12/14/19 12/14/19 12/14/19 Range/Units 04:22 06:18 06:45 RBC 1.98 L (3.65-5.03) M/mm3 Hgb 6.3 L (11.8-15.2) gm/dl Hct 19.4 L* (35.5-45.6) % MCV 98 H (84-94) fl RDW 20.3 H (13.2-15.2) % Plt Count 103 L (140-440) K/mm3 Lymph % (Auto) 9.7 L (13.4-35.0) % Lymph # 0.9 L (1.2-5.4) K/mm3 Seg Neutrophils % 81.4 H (40.0-70.0) % Seg Neutrophils # 7.8 H (1.8-7.7) K/mm3 ABG pO2 156.5 H (80.0-90.0) mm Hg ABG HCO3 17.3 L (20.0-26.0) mmol/L ABG Base Excess -7.6 L (-2.0-3.0) mmol/L ABG Hemoglobin 5.5 L (14.0-18.0) gm/dl Chloride (98-107) mmol/L Carbon Dioxide (22-30) mmol/L BUN (9-20) mg/dL Creatinine (0.8-1.5) mg/dL Glucose (75-100) mg/dL POC Glucose 138 H (70-105) Crossmatch 12/14/19 Range/Units 06:45 RBC (3.65-5.03) M/mm3 Hgb (11.8-15.2) gm/dl Hct (35.5-45.6) % MCV (84-94) fl RDW (13.2-15.2) % Plt Count (140-440) K/mm3 Lymph % (Auto) (13.4-35.0) % Lymph # (1.2-5.4) K/mm3 Seg Neutrophils % (40.0-70.0) % Seg Neutrophils # (1.8-7.7) K/mm3 ABG pO2 (80.0-90.0) mm Hg ABG HCO3 (20.0-26.0) mmol/L ABG Base Excess (-2.0-3.0) mmol/L ABG Hemoglobin (14.0-18.0) gm/dl Chloride 115.3 H (98-107) mmol/L Carbon Dioxide 17 L (22-30) mmol/L BUN 38 H (9-20) mg/dL Creatinine 1.7 H (0.8-1.5) mg/dL Glucose 117 H (75-100) mg/dL POC Glucose (70-105) Crossmatch - Imaging and Cardiology Chest x-ray: report reviewed, image reviewed (Chest x-ray shows diffuse bilateral opacities) Assessment and Plan Cultures: 12/12/2019 sputum culture: MRSA 12/12/2019 blood culture: No growth in 48 hours A/P: 79-year-old male with hypertension, dementia, CKD, 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 He was sent to the emergency room from the [place] [facility] on 12/12/2019 with worsening mental status, respiratory distress and hypoxia: #Septic shock, likely secondary to bilateral pneumonia: Sputum culture growing MRSA, vancomycin SAMMIE of 2.0. Patient with multiple recent hospitalizations and [facility] resident and multiple exposures to vancomycin. UA not suggestive of infection #Acute respiratory failure: Secondary to above. On mechanical ventilation. #JULIA on CKD: renally dose abx. #Acute anemia: Receiving blood transfusions. #Mild transaminitis: Likely secondary to septic shock. #Mild thrombocytopenia: Could be related to sepsis. Monitor. Recs: Vancomycin switched to linezolid. Monitor platelets closely. Continue cefepime, dose decreased to 1 g every 12 hours Monitor CBC Overall prognosis appears guarded Chana Mandujano MD, FACP [facility] ([facility] C: [phone] O: [phone] F: [phone]
--- NOTE | 2019-12-14 12:06 | Progress Note ---
Assessment and Plan Assessment and plan: Sepsis with b/l PNA (HCAP) - Sepsis with PNA, tachycardia, tachypnea, and lactic acidosis -Patient is on IV Vanco and cefepime, ID is following the patient -Blood cultures are negative so far -Sputum culture grew MRSA Acute hypoxic respiratory failure - intubated, consulted pulmonary - placed on scheduled nebs Septic shock, - on levophed, also cont iv fluid dementia, h/o chronic kidney disease, - Cr at his baseline, cont to monitor, iv fluid thrombocytopenia with anemia -Hemoglobin this morning dropped below 7 and 2 units of PRBC ordered -FOBT pending -GI consulted dyslipidemia, cont statin NSTEMI type 2 -chronically elevated, monitor for now - EF 45-50% on 10/27 CVA with aphasia s/p PEG placement - cont asp, statin, supportive care - start TF DVT; SCD. DC heparin for severe anemia and thrombocytopenia The high probability of a clinically significant, sudden or life threatening deterioration of the [cardiovascular, respiratory] system(s) required my full and direct attention, intervention and personal management. The aggregate critical care time was [32] minutes. This time is in addition to time spent performing reported procedures but includes the following: [x] Data Review and interpretation [x] Patient assessment and monitoring of vital signs [x] Documentation [x] Medication orders and management History Interval history: Patient was seen and evaluated this morning, patient is intubated and on mechanical ventilation. Patient is still on pressors. patient had episodes of fever. Hospitalist Physical - Physical exam Narrative exam: Patient is intubated and on mechanical ventilation. The patient appeared well nourished and normally developed. Vital signs as documented. Head exam is unremarkable. No scleral icterus . Neck is without jugular venous distension, thyromegaly, or carotid bruits. Lungs are clear to auscultation. Cardiac exam reveals regular rate and Rhythm. Abdominal exam reveals normal bowel sounds, nontender, no organomegaly. Extremities are nonedematous and both femoral and pedal pulses are normal. DIRECTOR VOICE: Sedated. - Constitutional Vitals: Temp Pulse Resp BP Pulse Ox 97.2 F L 67 18 105/71 98 12/14/19 11:47 12/14/19 11:45 12/14/19 11:45 12/14/19 11:45 12/14/19 11:45 General appearance: Present: other (intubated and sedated) Results - Labs CBC & Chem 7: 12/14/19 06:45 12/14/19 06:45 Labs: Laboratory Last Values WBC 9.6 K/mm3 (4.5-11.0) 12/14/19 06:45 RBC 1.98 M/mm3 (3.65-5.03) L 12/14/19 06:45 Hgb 6.3 gm/dl (11.8-15.2) L 12/14/19 06:45 Hct 19.4 % (35.5-45.6) L* 12/14/19 06:45 MCV 98 fl (84-94) H 12/14/19 06:45 MCH 32 pg (28-32) 12/14/19 06:45 MCHC 33 % (32-34) 12/14/19 06:45 RDW 20.3 % (13.2-15.2) H 12/14/19 06:45 Plt Count 103 K/mm3 (140-440) L 12/14/19 06:45 Lymph % (Auto) 9.7 % (13.4-35.0) L 12/14/19 06:45 [place] % (Auto) 6.4 % (0.0-7.3) 12/14/19 06:45 Eos % (Auto) 2.1 % (0.0-4.3) 12/14/19 06:45 Baso % (Auto) 0.4 % (0.0-1.8) 12/14/19 06:45 Lymph # 0.9 K/mm3 (1.2-5.4) L 12/14/19 06:45 [place] # 0.6 K/mm3 (0.0-0.8) 12/14/19 06:45 Eos # 0.2 K/mm3 (0.0-0.4) 12/14/19 06:45 Baso # 0.0 K/mm3 (0.0-0.1) 12/14/19 06:45 Seg Neutrophils % 81.4 % (40.0-70.0) H 12/14/19 06:45 Seg Neutrophils # 7.8 K/mm3 (1.8-7.7) H 12/14/19 06:45 PT 15.1 Sec. (12.2-14.9) H 12/12/19 05:00 INR 1.17 (0.87-1.13) H 12/12/19 05:00 APTT 28.0 Sec. (24.2-36.6) 12/12/19 05:00 ABG pH 7.353 pH Units (7.350-7.450) 12/14/19 04:22 ABG pCO2 31.8 mm Hg 12/14/19 04:22 ABG pO2 156.5 mm Hg (80.0-90.0) H 12/14/19 04:22 ABG HCO3 17.3 mmol/L (20.0-26.0) L 12/14/19 04:22 ABG O2 Saturation 98.9 % (95.0-99.0) 12/14/19 04:22 ABG O2 Content 7.9 (0.0-44) 12/14/19 04:22 ABG Base Excess -7.6 mmol/L (-2.0-3.0) L 12/14/19 04:22 ABG Hemoglobin 5.5 gm/dl (14.0-18.0) L 12/14/19 04:22 ABG Carboxyhemoglobin 1.6 % (0.0-5.0) 12/14/19 04:22 ABG Methemoglobin 0.6 % (0.0-1.5) 12/14/19 04:22 VBG pH 7.320 (7.320-7.420) 12/12/19 05:00 Oxyhemoglobin 96.7 % (95.0-99.0) 12/14/19 04:22 FiO2 25 % 12/14/19 04:22 Sodium 143 mmol/L (137-145) 12/14/19 06:45 Potassium 4.0 mmol/L (3.6-5.0) 12/14/19 06:45 Chloride 115.3 mmol/L (98-107) H 12/14/19 06:45 Carbon Dioxide 17 mmol/L (22-30) L 12/14/19 06:45 Anion Gap 15 mmol/L 12/14/19 06:45 BUN 38 mg/dL (9-20) H 12/14/19 06:45 Creatinine 1.7 mg/dL (0.8-1.5) H 12/14/19 06:45 Estimated GFR 47 ml/min 12/14/19 06:45 BUN/Creatinine Ratio 22 % 12/14/19 06:45 Glucose 117 mg/dL (75-100) H 12/14/19 06:45 POC Glucose 138 (70-105) H 12/14/19 06:18 Lactic Acid 1.60 mmol/L (0.7-2.0) 12/13/19 04:56 Calcium 9.6 mg/dL (8.4-10.2) 12/14/19 06:45 Total Bilirubin 0.30 mg/dL (0.1-1.2) 12/12/19 05:00 AST 46 units/L (5-40) H 12/12/19 05:00 ALT 72 units/L (7-56) H 12/12/19 05:00 Alkaline Phosphatase 84 units/L (35-129) 12/12/19 05:00 Troponin T 0.080 ng/mL (0.00-0.029) H 12/12/19 05:00 Total Protein 6.4 g/dL (6.3-8.2) 12/12/19 05:00 Albumin 2.2 g/dL (3.9-5) L 12/12/19 05:00 Albumin/Globulin Ratio 0.5 % 12/12/19 05:00 Triglycerides 30 mg/dL (2-149) 12/12/19 05:00 Cholesterol 82 mg/dL (50-199) 12/12/19 05:00 LDL Cholesterol Direct 38 mg/dL (50-130) L 12/12/19 05:00 HDL Cholesterol 45 mg/dL (40-59) 12/12/19 05:00 Cholesterol/HDL Ratio 1.82 % 12/12/19 05:00 Urine Color Yellow (Yellow) 12/12/19 Unknown Urine Turbidity Cloudy (Clear) 12/12/19 Unknown Urine pH 5.0 (5.0-7.0) 12/12/19 Unknown Ur Specific [place] 1.014 (1.003-1.030) 12/12/19 Unknown Urine Protein <15 mg/dl mg/dL (Negative) 12/12/19 Unknown Urine Glucose (UA) Neg mg/dL (Negative) 12/12/19 Unknown Urine Ketones Neg mg/dL (Negative) 12/12/19 Unknown Urine Blood Neg (Negative) 12/12/19 Unknown Urine Nitrite Neg (Negative) 12/12/19 Unknown Urine Bilirubin Neg (Negative) 12/12/19 Unknown Urine Urobilinogen < 2.0 mg/dL (<2.0) 12/12/19 Unknown Ur Leukocyte Esterase Neg (Negative) 12/12/19 Unknown Urine WBC (Auto) 2.0 /HPF (0.0-6.0) 12/12/19 Unknown Urine RBC (Auto) 3.0 /HPF (0.0-6.0) 12/12/19 Unknown U Epithel Cells (Auto) 1.0 /HPF (0-13.0) 12/12/19 Unknown Urine Bacteria (Auto) 1+ /HPF (Negative) 12/12/19 Unknown Hyaline Casts 1 /LPF 12/12/19 Unknown Urine Mucus Few /HPF 12/12/19 Unknown Blood Type A POSITIVE 12/12/19 05:00 Antibody Screen Negative 12/12/19 05:00 Crossmatch See Detail 12/12/19 05:00 Active Medications - Current Medications Current Medications: Generic Name Dose Route Start Last Admin Trade Name Freq PRN Reason Stop Dose Admin Acetaminophen 650 mg 12/12/19 07:52 Tylenol PO Q4H PRN Pain MILD(1-3)/Fever >100.5/BRUSH Albuterol/Ipratropium 1 ampul 12/12/19 08:00 12/14/19 08:12 Duoneb *Not For Prn Use* IH 1 ampul Q6HRT [facility] Administration Allopurinol 300 mg 12/12/19 10:00 12/14/19 09:10 Zyloprim PO 300 mg QDAY [facility] Administration Lipase/Protease/Amylase 1 each 12/12/19 12:[address] 10,500 Unit FEEDTUBE PRN PRN For Clogged Feeding Tube Aspirin 81 mg 12/13/19 10:00 12/13/19 10:19 Baby Aspirin PO 81 mg QDAY [facility] Administration Atorvastatin Calcium 40 mg 12/12/19 22:00 12/13/19 22:03 Lipitor PO 40 mg QHS [facility] Administration Cyanocobalamin 1,000 mcg 12/12/19 10:00 12/12/19 10:00 Vitamin B-12 IM 1,000 mcg QMONTH [facility] Administration Famotidine 20 mg 12/12/19 10:00 12/14/19 09:09 Pepcid IV 20 mg DAILY [facility] Administration Fentanyl 50 mcg 12/14/19 00:10 Sublimaze IV Q10M PRN Pain, Mild (1-3) Folic Acid 1 mg 12/12/19 10:00 12/14/19 09:09 Folvite PO 1 mg DAILY [facility] Administration Heparin Sodium (Porcine) 5,000 unit 12/12/19 14:00 12/14/19 05:36 Heparin SUB-Q 5,000 unit Q8HR [facility] Administration Hydrophilic Ointment 1 applic 12/12/19 05:18 Vaseline Lip Therapy TP Q2HR PRN Dry Lips Norepinephrine 4 mg in 250 mls @ 7.5 mls/hr 12/12/19 06:00 12/14/19 09:07 Levophed Drip 4 Mg/Ns 250 Ml IV 2 mcg/min TITR [facility] 7.5 mls/hr Administration Protocol 2 MCG/MIN Vancomycin HCl 1,250 mg/ 275 mls @ 166.667 mls/hr 12/13/19 06:00 12/14/19 06:25 Sodium Chloride IV 166.667 mls/hr Q24H [facility] Administration Cefepime HCl 2 gm in 100 mls @ 200 mls/hr 12/12/19 18:00 12/14/19 05:36 Cefepime/Ns 2 Gm/100 Ml IV 200 mls/hr Q12H [facility] Administration Protocol Sodium Chloride 1,000 mls @ 75 mls/hr 12/12/19 10:30 12/14/19 09:07 Nacl 0.9% 1000 Ml IV 75 mls/hr DIRECT [facility] Administration Vasopressin 20 unit/ Sodium 101 mls @ 9.09 mls/hr 12/12/19 19:00 12/14/19 06:25 Chloride IV 0.03 units/min TITR [facility] 9.09 mls/hr Administration Protocol 0.03 UNITS/MIN Fentanyl Citrate 2,000 mcg in 100 mls @ 7.62 mls/hr 12/13/19 23:45 12/14/19 01:37 Fentanyl Drip Premix IV 1 mcg/kg/hr TITR [facility] 3.81 mls/hr Titration Protocol 2 MCG/KG/HR Propofol 1,000 mg in 100 mls @ 9.144 mls/hr 12/13/19 23:45 12/14/19 03:01 Diprivan 10 Mg/Ml IV 5 mcg/kg/min TITR [facility] 2.286 mls/hr Titration Protocol 20 MCG/KG/MIN Lorazepam 2 mg 12/12/19 07:03 12/13/19 22:03 Ativan IV 2 mg Q10MIN PRN Administration Agitation Morphine Sulfate 2 mg 12/12/19 07:52 Morphine IV Q4H PRN Pain, Moderate (4-6) Multi-Ingred Cream/Lotion/Oil/Oint 1 applic 12/12/19 05:18 Artificial Tears Ophth Oint OU Q4HR PRN Dry Eye(s) Ondansetron HCl 4 mg 12/12/19 07:52 Zofran IV Q8H PRN Nausea And Vomiting Simple Syrup 15 ml 12/12/19 12:32 12/12/19 18:40 Simple Syrup FEEDTUBE 15 ml PRN PRN Administration Hypoglycemia Simple Syrup 30 ml 12/12/19 12:32 Simple Syrup FEEDTUBE PRN PRN Hypoglycemia Sodium Bicarbonate 325 mg 12/12/19 12:32 Sodium Bicarbonate FEEDTUBE PRN PRN For Clogged Feeding Tube Sodium Chloride 10 ml 12/12/19 10:00 12/14/19 09:10 Sodium Chloride Flush Syringe 10 Ml IV 10 ml BID [facility] Administration Sodium Chloride 10 ml 12/12/19 07:52 12/12/19 21:38 Sodium Chloride Flush Syringe 10 Ml IV 10 ml PRN PRN Administration LINE FLUSH Nutrition/Malnutrition Assess - Dietary Evaluation Nutrition/Malnutrition Findings: Nutrition Notes Start: 12/12/19 12:10 Freq: Status: Active Protocol: Document 12/13/19 10:48 (Rec: 12/13/19 10:51 [id number]) Co-Sign 12/13/19 10:48 Nutrition Notes Initial or Follow up Brief Note Current Diagnosis Acute Kidney Injury,CKD(stage I-IV),Sepsis,Hypertension, Respiratory Failure Other Pertinent Diagnosis hx CVA with dysphasia, PEG, dementia Current Diet Osmolite 1.5 at 50 ml/hr Subjective/Other Information MD consult to evaluate nutritional intake. TF initated 12/11. Nutrition Intervention Follow-Up By: 12/15/19 Additional Comments F/U for TF tolerance
[2019-12-14] MEDS ORDERED: ACETAMINOPHEN 325 MG TAB PO PRN (14:25)
--- NOTE | 2019-12-14 14:27 | Gastroenterology Consultation ---
History of Present Illness - Reason for Consult Consult date: 12/14/19 Symptomatic Anemia Past History Past Medical History: hypertension, hyperlipidemia, stroke, other (CKD, rojelio ia) Past Surgical History: Other (PEG) Social history: other (Lives in [place]). denies: smoking, prescription drug abuse Family history: no significant family history Medications and Allergies Allergies Allergy/AdvReac Type Severity Reaction Status Date / Time No Known Allergies Allergy Unverified 07/23/13 13:35 Home Medications Medication Instructions Recorded Confirmed Last Taken Type AtorvaSTATin [Lipitor] 40 mg PO QHS 09/09/19 12/12/19 Unknown History Cyanocobalamin [Vitamin B-12] 1,000 mcg IM QMONTH 09/09/19 12/12/19 Unknown Hi story Finasteride [Proscar] 5 mg PO QHS 09/09/19 12/12/19 Unknown History Folic Acid 1 mg PO DAILY 09/09/19 12/12/19 Unknown History Vit-Fe Fumar-FA [ 1 tab PO DAILY 09/09/19 12/12/19 Unknown History Vitamin] allopurinoL [Zyloprim] 300 mg PO QDAY 09/09/19 12/12/19 Unknown History Lansoprazole Solutab [Prevacid 30 mg FEEDTUBE QDAY 30 Days 10/09/19 12/12/19 Unknown Rx Solutab] tab.rapdis Metoprolol Xl [Metoprolol 25 mg PO QDAY #30 tablet 10/09/19 12/12/19 Unknown Rx SUCCINATE ER TAB] Tamsulosin [Flomax] 0.4 mg PO QDAY #30 capsule 10/09/19 12/12/19 Unknown Rx Active Meds: Active Medications Acetaminophen (Tylenol) 650 mg PO Q6H PRN PRN Reason: Pain MILD(1-3)/Fever >100.5/BRUSH Albuterol/Ipratropium (Duoneb *Not For Prn Use*) 1 ampul IH Q6HRT [facility] Last Admin: 12/14/19 08:12 Dose: 1 ampul Documented by: Allopurinol (Zyloprim) 300 mg PO QDAY [facility] Last Admin: 12/14/19 09:10 Dose: 300 mg Documented by: Lipase/Protease/Amylase (Mayra Stacy 10,500 Unit) 1 each FEEDTUBE PRN PRN PRN Reason: For Clogged Feeding Tube Aspirin (Baby Aspirin) 81 mg PO QDAY [facility] Last Admin: 12/13/19 10:19 Dose: 81 mg Documented by: Atorvastatin Calcium (Lipitor) 40 mg PO QHS [facility] Last Admin: 12/13/19 22:03 Dose: 40 mg Documented by: Cyanocobalamin (Vitamin B-12) 1,000 mcg IM QMONTH [facility] Last Admin: 12/12/19 10:00 Dose: 1,000 mcg Documented by: Fentanyl (Sublimaze) 50 mcg IV Q10M PRN PRN Reason: Pain, Mild (1-3) Folic Acid (Folvite) 1 mg PO DAILY [facility] Last Admin: 12/14/19 09:09 Dose: 1 mg Documented by: Heparin Sodium (Porcine) (Heparin) 5,000 unit SUB-Q Q8HR [facility] Last Admin: 12/14/19 14:01 Dose: Not Given Documented by: Hydrophilic Ointment (Vaseline Lip Therapy) 1 applic TP Q2HR PRN PRN Reason: Dry Lips Norepinephrine (Levophed Drip 4 Mg/Ns 250 Ml) 4 mg in 250 mls @ 7.5 mls/hr IV TITR [facility]; Protocol Last Admin: 12/14/19 09:07 Dose: 2 mcg/min, 7.5 mls/hr Documented by: Sodium Chloride (Nacl 0.9% 1000 Ml) 1,000 mls @ 75 mls/hr IV DIRECT [facility] Last Admin: 12/14/19 09:07 Dose: 75 mls/hr Documented by: Vasopressin 20 unit/ Sodium (Chloride) 101 mls @ 9.09 mls/hr IV TITR [facility]; Prot ocol Last Admin: 12/14/19 06:25 Dose: 0.03 units/min, 9.09 mls/hr Documented by: Fentanyl Citrate (Fentanyl Drip Premix) 2,000 mcg in 100 mls @ 7.62 mls/hr IV TITR [facility]; Protocol Last Titration: 12/14/19 01:37 Dose: 1 mcg/kg/hr, 3.81 mls/hr Documented by: Propofol (Diprivan 10 Mg/Ml) 1,000 mg in 100 mls @ 9.144 mls/hr IV TITR [facility]; Protocol Last Titration: 12/14/19 03:01 Dose: 5 mcg/kg/min, 2.286 mls/hr Documented by: Linezolid (Zyvox 600mg/300ml) 600 mg in 300 mls @ 300 mls/hr IV Q12H [facility]; Protocol Cefepime HCl (Cefepime/Ns 1 Gm/100 Ml) 1 gm in 100 mls @ 200 mls/hr IV Q12H [facility]; Protocol Lansoprazole (Prevacid Solutab) 30 mg FEEDTUBE QDAY [facility] Lorazepam (Ativan) 2 mg IV Q10MIN PRN PRN Reason: Agitation Last Admin: 12/13/19 22:03 Dose: 2 mg Documented by: Morphine Sulfate (Morphine) 2 mg IV Q4H PRN PRN Reason: Pain, Moderate (4-6) Multi-Ingred Cream/Lotion/Oil/Oint (Artificial Tears Ophth Oint) 1 applic OU Q4HR PRN PRN Reason: Dry Eye(s) Multivitamins (Centrum Liq) 5 ml PO QDAY [facility] Ondansetron HCl (Zofran) 4 mg IV Q8H PRN PRN Reason: Nausea And Vomiting Simple Syrup (Simple Syrup) 15 ml FEEDTUBE PRN PRN PRN Reason: Hypoglycemia Last Admin: 12/12/19 18:40 Dose: 15 ml Documented by: Simple Syrup (Simple Syrup) 30 ml FEEDTUBE PRN PRN PRN Reason: Hypoglycemia Sodium Bicarbonate (Sodium Bicarbonate) 325 mg FEEDTUBE PRN PRN PRN Reason: For Clogged Feeding Tube Sodium Chloride (Sodium Chloride Flush Syringe 10 Ml) 10 ml IV BID [facility] Last Admin: 12/14/19 09:10 Dose: 10 ml Documented by: Sodium Chloride (Sodium Chloride Flush Syringe 10 Ml) 10 ml IV PRN PRN PRN Reason: LINE FLUSH Last Admin: 12/12/19 21:38 Dose: 10 ml Documented by: I HAVE REVIEWED AND RECONCILED MEDICATIONS Review of Systems - Review of Systems ROS unobtainable: due to endotracheal tube, due to mental status Exam - Constitutional Vital Signs: Temp Pulse Resp BP Pulse Ox 96.5 F L 69 17 132/80 99 12/14/19 14:08 12/14/19 14:00 12/14/19 14:00 12/14/19 14:00 12/14/19 14:00 General appearance: no acute distress, other (On Vent) - EENT Eyes: PERRL, EOM intact ENT: poor dentition, no thrush, other (ET tube present) - Neck Neck: supple, normal ROM - Respiratory Respiratory effort: normal Respiratory: bilateral: CTA (Vent) - Cardiovascular Rhythm: regular Heart Sounds: Present: S1 & S2 Extremities: no ischemia, No edema - Gastrointestinal General gastrointestinal: Present: soft, non-tender, non-distended, other (PEG at 4.5cm, loosened to 5; not tight; no blood aspirated) Rectal Exam: stool brown - Integumentary Integumentary: Present: clear, warm - Neurologic Neurological: other (Unable to assess; sedated on vent; some voluntary movement) - Labs CBC & Chem 7: 12/14/19 06:45 12/14/19 06:45 Lab Results: Laboratory Results - last 24 hr 12/12/19 12/13/19 12/13/19 05:00 18:05 23:24 WBC RBC Hgb Hct MCV MCH MCHC RDW Plt Count Lymph % (Auto) [place] % (Auto) Eos % (Auto) Baso % (Auto) Lymph # [place] # Eos # Baso # Seg Neutrophils % Seg Neutrophils # ABG pH ABG pCO2 ABG pO2 ABG HCO3 ABG O2 Saturation ABG O2 Content ABG Base Excess ABG Hemoglobin ABG Carboxyhemoglobin ABG Methemoglobin Oxyhemoglobin FiO2 Sodium Potassium Chloride Carbon Dioxide Anion Gap BUN Creatinine Estimated GFR BUN/Creatinine Ratio Glucose POC Glucose 165 H 110 H Calcium Blood Type A POSITIVE Antibody Screen Negative Crossmatch See Detail 12/14/19 12/14/19 12/14/19 04:22 06:18 06:45 WBC 9.6 RBC 1.98 L Hgb 6.3 L Hct 19.4 L* MCV 98 H MCH 32 MCHC 33 RDW 20.3 H Plt Count 103 L Lymph % (Auto) 9.7 L [place] % (Auto) 6.4 Eos % (Auto) 2.1 Baso % (Auto) 0.4 Lymph # 0.9 L [place] # 0.6 Eos # 0.2 Baso # 0.0 Seg Neutrophils % 81.4 H Seg Neutrophils # 7.8 H ABG pH 7.353 ABG pCO2 31.8 ABG pO2 156.5 H ABG HCO3 17.3 L ABG O2 Saturation 98.9 ABG O2 Content 7.9 ABG Base Excess -7.6 L ABG Hemoglobin 5.5 L ABG Carboxyhemoglobin 1.6 ABG Methemoglobin 0.6 Oxyhemoglobin 96.7 FiO2 25 Sodium Potassium Chloride Carbon Dioxide Anion Gap BUN Creatinine Estimated GFR BUN/Creatinine Ratio Glucose POC Glucose 138 H Calcium Blood Type Antibody Screen Crossmatch 12/14/19 12/14/19 06:45 12:54 WBC RBC Hgb Hct MCV MCH MCHC RDW Plt Count Lymph % (Auto) [place] % (Auto) Eos % (Auto) Baso % (Auto) Lymph # [place] # Eos # Baso # Seg Neutrophils % Seg Neutrophils # ABG pH ABG pCO2 ABG pO2 ABG HCO3 ABG O2 Saturation ABG O2 Content ABG Base Excess ABG Hemoglobin ABG Carboxyhemoglobin ABG Methemoglobin Oxyhemoglobin FiO2 Sodium 143 Potassium 4.0 Chloride 115.3 H Carbon Dioxide 17 L Anion Gap 15 BUN 38 H Creatinine 1.7 H Estimated GFR 47 BUN/Creatinine Ratio 22 Glucose 117 H POC Glucose 127 H Calcium 9.6 Blood Type Antibody Screen Crossmatch Assessment and Plan - Patient Problems (1) Symptomatic anemia Current Visit: Yes Status: Acute Plan to address problem: - Brown stool without melena, and no blood in stomach. - Will place on protonix. - Patient has had anemia > 1 year (on labs) as well as thrombocytopenia (in the absence of known liver disease). Suggest Heme W/U. - Will follow and monitor response to transfusion. - OK to continue tube feeds.
[2019-12-14] MEDS: CEFEPIME/NS 1 GM/100 ML 1 GM/100 ML BAG IV SCH (14:28)
[2019-12-14] MEDS: LINEZOLID 600 MG/300 ML BAG IV SCH (14:29)
--- NOTE | 2019-12-14 15:28 | Progress Note ---
Subjective Date of service: 12/14/19 Objective Vital Signs - 12hr 12/14/19 12/14/19 12/14/19 03:30 03:45 04:00 Temperature 98.7 F Pulse Rate 99 H 96 H 95 H Pulse Rate [ Bilateral] Pulse Rate [ From Monitor] Respiratory 24 23 22 Rate Respiratory Rate [Bilateral ] Blood Pressure 100/54 104/57 107/60 O2 Sat by Pulse Oximetry 12/14/19 12/14/19 12/14/19 04:15 04:23 04:30 Temperature Pulse Rate 95 H 86 92 H Pulse Rate [ Bilateral] Pulse Rate [ From Monitor] Respiratory 26 H 26 H Rate Respiratory Rate [Bilateral ] Blood Pressure 109/64 123/75 110/66 O2 Sat by Pulse 97 Oximetry 12/14/19 12/14/19 12/14/19 04:45 05:00 05:15 Temperature Pulse Rate 90 90 87 Pulse Rate [ Bilateral] Pulse Rate [ From Monitor] Respiratory 22 23 23 Rate Respiratory Rate [Bilateral ] Blood Pressure 114/66 117/71 112/66 O2 Sat by Pulse Oximetry 12/14/19 12/14/19 12/14/19 05:30 05:45 06:00 Temperature Pulse Rate 88 84 82 Pulse Rate [ Bilateral] Pulse Rate [ From Monitor] Respiratory 21 23 21 Rate Respiratory Rate [Bilateral ] Blood Pressure 123/75 114/66 108/66 O2 Sat by Pulse 97 98 Oximetry 12/14/19 12/14/19 12/14/19 06:15 06:30 06:45 Temperature Pulse Rate 82 79 77 Pulse Rate [ Bilateral] Pulse Rate [ From Monitor] Respiratory 21 21 19 Rate Respiratory Rate [Bilateral ] Blood Pressure 112/70 114/70 111/69 O2 Sat by Pulse 97 Oximetry 12/14/19 12/14/19 12/14/19 07:00 07:15 07:30 Temperature Pulse Rate 77 76 75 Pulse Rate [ Bilateral] Pulse Rate [ 74 From Monitor] Respiratory 20 19 20 Rate Respiratory Rate [Bilateral ] Blood Pressure 117/73 121/72 126/76 O2 Sat by Pulse 100 97 97 Oximetry 12/14/19 12/14/19 12/14/19 07:45 08:00 08:15 Temperature 97.9 F Pulse Rate 79 77 73 Pulse Rate [ 74 Bilateral] Pulse Rate [ From Monitor] Respiratory 18 Rate Respiratory 18 Rate [Bilateral ] Blood Pressure 131/75 102/54 98/60 O2 Sat by Pulse 98 96 Oximetry 12/14/19 12/14/19 12/14/19 08:30 08:45 09:00 Temperature Pulse Rate 77 78 82 Pulse Rate [ Bilateral] Pulse Rate [ 70 From Monitor] Respiratory 25 H Rate Respiratory Rate [Bilateral ] Blood Pressure 96/58 93/54 78/46 O2 Sat by Pulse 99 100 Oximetry 12/14/19 12/14/19 12/14/19 09:15 09:30 09:45 Temperature Pulse Rate 71 69 69 Pulse Rate [ Bilateral] Pulse Rate [ From Monitor] Respiratory 18 18 18 Rate Respiratory Rate [Bilateral ] Blood Pressure 100/63 109/70 117/74 O2 Sat by Pulse 98 98 98 Oximetry 12/14/19 12/14/19 12/14/19 10:00 10:15 10:30 Temperature Pulse Rate 65 63 65 Pulse Rate [ Bilateral] Pulse Rate [ From Monitor] Respiratory 18 18 18 Rate Respiratory Rate [Bilateral ] Blood Pressure 119/70 131/75 129/73 O2 Sat by Pulse 100 99 99 Oximetry 12/14/19 12/14/19 12/14/19 10:32 10:45 11:00 Temperature 97.6 F Pulse Rate 65 71 Pulse Rate [ Bilateral] Pulse Rate [ 64 From Monitor] Respiratory 18 18 Rate Respiratory Rate [Bilateral ] Blood Pressure 119/69 99/59 O2 Sat by Pulse 99 100 Oximetry 12/14/19 12/14/19 12/14/19 11:15 11:30 11:45 Temperature Pulse Rate 67 65 67 Pulse Rate [ Bilateral] Pulse Rate [ From Monitor] Respiratory 18 18 18 Rate Respiratory Rate [Bilateral ] Blood Pressure 93/57 98/65 105/71 O2 Sat by Pulse 98 98 Oximetry 12/14/19 12/14/19 12/14/19 11:47 12:00 12:15 Temperature 97.2 F L 96.4 F L Pulse Rate 66 67 Pulse Rate [ Bilateral] Pulse Rate [ From Monitor] Respiratory 18 18 Rate Respiratory Rate [Bilateral ] Blood Pressure 106/70 107/72 O2 Sat by Pulse 99 98 Oximetry 12/14/19 12/14/19 12/14/19 12:17 12:23 12:30 Temperature 97.4 F L 94.6 F L Pulse Rate 65 Pulse Rate [ Bilateral] Pulse Rate [ From Monitor] Respiratory 18 Rate Respiratory Rate [Bilateral ] Blood Pressure 99/65 O2 Sat by Pulse 98 Oximetry 12/14/19 12/14/19 12/14/19 12:45 13:00 13:15 Temperature Pulse Rate 68 65 64 Pulse Rate [ Bilateral] Pulse Rate [ 70 From Monitor] Respiratory 18 18 18 Rate Respiratory Rate [Bilateral ] Blood Pressure 92/59 85/55 94/56 O2 Sat by Pulse 100 Oximetry 12/14/19 12/14/19 12/14/19 13:30 13:45 14:00 Temperature Pulse Rate 69 68 69 Pulse Rate [ Bilateral] Pulse Rate [ From Monitor] Respiratory 18 18 17 Rate Respiratory Rate [Bilateral ] Blood Pressure 124/75 123/74 132/80 O2 Sat by Pulse 98 97 99 Oximetry 12/14/19 12/14/19 12/14/19 14:08 14:15 14:30 Temperature 96.5 F L Pulse Rate 69 70 Pulse Rate [ Bilateral] Pulse Rate [ From Monitor] Respiratory 18 17 Rate Respiratory Rate [Bilateral ] Blood Pressure 101/62 108/66 O2 Sat by Pulse 97 97 Oximetry 12/14/19 12/14/19 14:31 14:45 Temperature 96.4 F L Pulse Rate 71 Pulse Rate [ Bilateral] Pulse Rate [ From Monitor] Respiratory 22 Rate Respiratory Rate [Bilateral ] Blood Pressure 90/56 O2 Sat by Pulse 97 Oximetry CBC and BMP: 12/14/19 06:45 12/14/19 06:45 ABG, PT/INR, D-dimer: ABG ABG pH 7.353 pH Units (7.350-7.450) 12/14/19 04:22 ABG pCO2 31.8 mm Hg 12/14/19 04:22 ABG pO2 156.5 mm Hg (80.0-90.0) H 12/14/19 04:22 ABG O2 Saturation 98.9 % (95.0-99.0) 12/14/19 04:22 PT/INR, D-dimer PT 15.1 Sec. (12.2-14.9) H 12/12/19 05:00 INR 1.17 (0.87-1.13) H 12/12/19 05:00 Abnormal lab findings: Abnormal Labs 12/12/19 12/12/19 12/12/19 04:35 05:00 05:00 RBC 2.39 L Hgb 7.7 L Hct 23.1 L MCV 97 H RDW 18.8 H Plt Count Lymph % (Auto) 9.9 L Lymph # 0.5 L Seg Neutrophils % 86.5 H Seg Neutrophils # PT INR ABG pH ABG pO2 ABG HCO3 ABG O2 Saturation ABG Base Excess ABG Hemoglobin Oxyhemoglobin Chloride Carbon Dioxide 19 L BUN 51 H Creatinine 1.9 H Glucose 117 H POC Glucose 129 H Lactic Acid AST 46 H ALT 72 H Troponin T 0.080 H Albumin 2.2 L LDL Cholesterol Direct 38 L Crossmatch 12/12/19 12/12/19 12/12/19 05:00 05:00 05:00 RBC Hgb Hct MCV RDW Plt Count Lymph % (Auto) Lymph # Seg Neutrophils % Seg Neutrophils # PT 15.1 H INR 1.17 H ABG pH 7.320 L ABG pO2 95.6 H ABG HCO3 18.2 L ABG O2 Saturation 99.5 H ABG Base Excess -7.2 L ABG Hemoglobin 7.3 L Oxyhemoglobin 94.9 L Chloride Carbon Dioxide BUN Creatinine Glucose POC Glucose Lactic Acid 7.90 H* AST ALT Troponin T Albumin LDL Cholesterol Direct Crossmatch 12/12/19 12/12/19 12/12/19 05:00 07:04 08:10 RBC Hgb Hct MCV RDW Plt Count Lymph % (Auto) Lymph # Seg Neutrophils % Seg Neutrophils # PT INR ABG pH ABG pO2 ABG HCO3 ABG O2 Saturation ABG Base Excess ABG Hemoglobin Oxyhemoglobin Chloride Carbon Dioxide BUN Creatinine Glucose POC Glucose Lactic Acid 7.30 H* 6.40 H* AST ALT Troponin T Albumin LDL Cholesterol Direct Crossmatch See Detail 12/12/19 12/12/19 12/12/19 15:01 18:48 Unknown RBC Hgb Hct MCV RDW Plt Count Lymph % (Auto) Lymph # Seg Neutrophils % Seg Neutrophils # PT INR ABG pH ABG pO2 ABG HCO3 ABG O2 Saturation ABG Base Excess ABG Hemoglobin Oxyhemoglobin Chloride Carbon Dioxide BUN Creatinine Glucose POC Glucose 62 L Lactic Acid 2.90 H* 4.30 H* AST ALT Troponin T Albumin LDL Cholesterol Direct Crossmatch 12/13/19 12/13/19 12/13/19 04:56 04:56 05:40 RBC 2.24 L Hgb 7.1 L Hct 21.6 L MCV 96 H RDW 19.9 H Plt Count 135 L Lymph % (Auto) 11.6 L Lymph # 1.1 L Seg Neutrophils % 79.2 H Seg Neutrophils # 7.8 H PT INR ABG pH ABG pO2 ABG HCO3 17.3 L ABG O2 Saturation ABG Base Excess -7.2 L ABG Hemoglobin 7.8 L Oxyhemoglobin Chloride 111.8 H Carbon Dioxide 16 L BUN 39 H Creatinine 1.6 H Glucose 101 H POC Glucose Lactic Acid AST ALT Troponin T Albumin LDL Cholesterol Direct Crossmatch 12/13/19 12/13/19 12/14/19 18:05 23:24 04:22 RBC Hgb Hct MCV RDW Plt Count Lymph % (Auto) Lymph # Seg Neutrophils % Seg Neutrophils # PT INR ABG pH ABG pO2 156.5 H ABG HCO3 17.3 L ABG O2 Saturation ABG Base Excess -7.6 L ABG Hemoglobin 5.5 L Oxyhemoglobin Chloride Carbon Dioxide BUN Creatinine Glucose POC Glucose 165 H 110 H Lactic Acid AST ALT Troponin T Albumin LDL Cholesterol Direct Crossmatch 12/14/19 12/14/19 12/14/19 06:18 06:45 06:45 RBC 1.98 L Hgb 6.3 L Hct 19.4 L* MCV 98 H RDW 20.3 H Plt Count 103 L Lymph % (Auto) 9.7 L Lymph # 0.9 L Seg Neutrophils % 81.4 H Seg Neutrophils # 7.8 H PT INR ABG pH ABG pO2 ABG HCO3 ABG O2 Saturation ABG Base Excess ABG Hemoglobin Oxyhemoglobin Chloride 115.3 H Carbon Dioxide 17 L BUN 38 H Creatinine 1.7 H Glucose 117 H POC Glucose 138 H Lactic Acid AST ALT Troponin T Albumin LDL Cholesterol Direct Crossmatch 12/14/19 12:54 RBC Hgb Hct MCV RDW Plt Count Lymph % (Auto) Lymph # Seg Neutrophils % Seg Neutrophils # PT INR ABG pH ABG pO2 ABG HCO3 ABG O2 Saturation ABG Base Excess ABG Hemoglobin Oxyhemoglobin Chloride Carbon Dioxide BUN Creatinine Glucose POC Glucose 127 H Lactic Acid AST ALT Troponin T Albumin LDL Cholesterol Direct Crossmatch
[2019-12-14] MEDS: LANSOPRAZOLE 30 MG SOLUTAB FEEDTUBE SCH (15:37)
[2019-12-15] MEDS: CEFEPIME/NS 1 GM/100 ML 1 GM/100 ML BAG IV SCH (01:04)
[2019-12-15] MEDS: IPRATROPIUM/ALBUTEROL SULFATE 3 ML AMPUL.NEB IH SCH ×4 (01:36→20:44)
[2019-12-15] MEDS: LINEZOLID 600 MG/300 ML BAG IV SCH ×2 (02:02→13:44)
[2019-12-15 04:19] LABS: ABG Base Excess -7.9 mmol/L (-2.0-3.0); ABG HCO3 16.5 mmol/L (20.0-26.0); ABG Methemoglobin 0.7 % (0.0-1.5); ABG Oxygen Saturation 95.6 % (95.0-99.0); ABG PCO2 30.5 mm Hg; ABG PH 7.352 pH Units (7.350-7.450); ABG PO2 71.3 mm Hg (80.0-90.0)
[2019-12-15] MEDS: SODIUM CHLORIDE 0.9% 1000 ML 1,000 ML IV SCH (04:36)
[2019-12-15] MEDS: HEPARIN 5,000 UNIT/1 ML VIAL SUB-Q SCH ×3 (05:41→21:31)
[2019-12-15 05:48] LABS: Basophils % (Auto) 0.2 % (0.0-1.8); Eosinophils # (Auto) 0.2 K/mm3 (0.0-0.4); Eosinophils % (Auto) 2.4 % (0.0-4.3); Hematocrit 28.3 % (35.5-45.6); Hemoglobin 9.4 gm/dl (11.8-15.2); Lymphocytes # (Auto) 0.5 K/mm3 (1.2-5.4); Lymphocytes % (Auto) 5.2 % (13.4-35.0); Mean Corpuscular HGB Conc 33 % (32-34); Mean Corpuscular Volume 95 fl (84-94); Monocytes # (Auto) 0.4 K/mm3 (0.0-0.8); Monocytes % (Auto) 4.7 % (0.0-7.3); Platelet Count 101 K/mm3 (140-440); Red Blood Count 2.97 M/mm3 (3.65-5.03); Red Cell Distribution Width 17.8 % (13.2-15.2)
--- NOTE | 2019-12-15 06:00 | XRay Report ---
CHEST 1 VIEW INDICATION / CLINICAL INFORMATION: follow up respiratory failure. COMPARISON: 12/14/2019 FINDINGS: SUPPORT DEVICES: Stable, satisfactory device positioning. HEART / MEDIASTINUM: No significant abnormality. LUNGS / PLEURA: Continued interval worsening of pleural-parenchymal disease in the left lung base. Pa tchy pulmonary opacities throughout the remainder of both lungs remain stable. No pneumothorax. ADDITIONAL FINDINGS: No significant additional findings. IMPRESSION: 1. Interval worsening of left basilar pleural-parenchymal disease. Signer Name: Meaghan Hernandes MD Signed: 12/15/2019 5:56 AM Workstation Name: [id number]
[2019-12-15 06:31] LABS: BUN/Creatinine Ratio 27; Blood Urea Nitrogen 35 mg/dL (9-20); Calcium 10.3 mg/dL (8.4-10.2); Hemolysis Index 7
[2019-12-15] MEDS: allopurinoL 300 MG TAB PO SCH (10:03)
[2019-12-15] MEDS: LANSOPRAZOLE 30 MG SOLUTAB FEEDTUBE SCH (10:03)
[2019-12-15] MEDS: ASPIRIN 81 MG TAB CHEW PO SCH (10:03)
[2019-12-15] MEDS: MULTIVITAMINS 5 ML ORAL LIQUID PO SCH (10:03)
[2019-12-15] MEDS: FOLIC ACID 1 MG TAB PO SCH (10:03)
--- NOTE | 2019-12-15 10:46 | Progress Note ---
Assessment and Plan Cultures: 12/12/2019 sputum culture: MRSA 12/12/2019 blood culture: No growth in 72 hours A/P: 79-year-old male with hypertension, dementia, CKD, CVA with a aphasia and status post PEG tube placement, resident of [facility], multiple recent hospitalizations, most recently in November 2019 with bilateral pneumonia, acute anemia requiring antibiotics as well as blood transfusion. He was sent to the emergency room from the [facility] on 12/12/2019 with worsening mental status, respiratory distress and hypoxia: #Septic shock, likely secondary to bilateral pneumonia: Sputum culture growing MRSA, vancomycin SAMMIE of 2.0. Patient with multiple recent hospitalizations and [facility]f resident and multiple exposures to vancomycin. UA not suggestive of infection #Acute respiratory failure: Secondary to above. On mechanical ventilation. #JULIA on CKD: renally dose abx. #Acute anemia: Receiving blood transfusions. #Mild transaminitis: Likely secondary to septic shock. #Mild thrombocytopenia: Could be related to sepsis. Monitor. Recs: Doing better, continue IV linezolid. Monitor platelets closely. Cefepime discontinued Monitor CBC Chana Mandujano MD, FACP [facility] C: [phone] O: [phone] F: [phone] Subjective Date of service: 12/15/19 Interval history: Hypothermic. Remains intubated on the vent. Pressors weaned off. Objective - Exam Narrative Exam: Physical Exam: Constitutional: sedated, intubated Head, Ears, Nose: Normocephalic, atraumatic. External ears, nose normal Eyes: Conjunctivae/corneas clear. No icterus. No ptosis. Neck: Intubated Oral: intubated Cardiovascular: S1, S2 normal. Respiratory: clear b/l GI: Soft, non-tender; bowel sounds +, PEG tube present Musculoskeletal: No pedal edema, no cyanosis. Skin: No rash or abscess Hem/Lymphatic: No palpable cervical or supraclavicular nodes. No lymphangitis Psych: no agitation Neurological: sedated, intubated, on vent - Constitutional Vitals: Vital Signs Temp Pulse Resp BP Pulse Ox 100.0 F H 124 H 34 H 113/50 94 12/15/19 08:00 12/15/19 09:00 12/15/19 09:00 12/15/19 09:00 12/15/19 09:00 Temperature -Last 24 Hours Temperature 100.0 F Temperature 97.7 F Temperature 97.7 F Temperature 97.3 F Temperature 97.3 F Temperature 91.5 F Temperature 96.4 F Temperature 96.5 F Temperature 94.6 F Temperature 97.4 F Temperature 96.4 F Temperature 97.2 F - Labs CBC & Chem 7: 12/15/19 05:30 12/15/19 05:30 Labs: Abnormal lab results 12/12/19 12/14/19 12/14/19 Range/Units 05:00 12:54 17:35 RBC (3.65-5.03) M/mm3 Hgb (11.8-15.2) gm/dl Hct (35.5-45.6) % MCV (84-94) fl RDW (13.2-15.2) % Plt Count (140-440) K/mm3 Lymph % (Auto) (13.4-35.0) % Lymph # (1.2-5.4) K/mm3 Seg Neutrophils % (40.0-70.0) % Seg Neutrophils # (1.8-7.7) K/mm3 ABG pO2 (80.0-90.0) mm Hg ABG HCO3 (20.0-26.0) mmol/L ABG Base Excess (-2.0-3.0) mmol/L ABG Hemoglobin (14.0-18.0) gm/dl Oxyhemoglobin (95.0-99.0) % Chloride (98-107) mmol/L Carbon Dioxide (22-30) mmol/L BUN (9-20) mg/dL POC Glucose 127 H 163 H (70-105) Calcium (8.4-10.2) mg/dL Vancomycin Trough (5.0-20.0) ug/mL Crossmatch See Detail 12/14/19 12/15/19 12/15/19 Range/Units 23:35 04:10 05:30 RBC (3.65-5.03) M/mm3 Hgb (11.8-15.2) gm/dl Hct (35.5-45.6) % MCV (84-94) fl RDW (13.2-15.2) % Plt Count (140-440) K/mm3 Lymph % (Auto) (13.4-35.0) % Lymph # (1.2-5.4) K/mm3 Seg Neutrophils % (40.0-70.0) % Seg Neutrophils # (1.8-7.7) K/mm3 ABG pO2 71.3 L (80.0-90.0) mm Hg ABG HCO3 16.5 L (20.0-26.0) mmol/L ABG Base Excess -7.9 L (-2.0-3.0) mmol/L ABG Hemoglobin 10.9 L (14.0-18.0) gm/dl Oxyhemoglobin 93.4 L (95.0-99.0) % Chloride (98-107) mmol/L Carbon Dioxide (22-30) mmol/L BUN (9-20) mg/dL POC Glucose 116 H (70-105) Calcium (8.4-10.2) mg/dL Vancomycin Trough 23.6 H (5.0-20.0) ug/mL Crossmatch 12/15/19 12/15/19 Range/Units 05:30 05:30 RBC 2.97 L (3.65-5.03) M/mm3 Hgb 9.4 L D (11.8-15.2) gm/dl Hct 28.3 L D (35.5-45.6) % MCV 95 H (84-94) fl RDW 17.8 H (13.2-15.2) % Plt Count 101 L (140-440) K/mm3 Lymph % (Auto) 5.2 L (13.4-35.0) % Lymph # 0.5 L (1.2-5.4) K/mm3 Seg Neutrophils % 87.5 H (40.0-70.0) % Seg Neutrophils # 8.2 H (1.8-7.7) K/mm3 ABG pO2 (80.0-90.0) mm Hg ABG HCO3 (20.0-26.0) mmol/L ABG Base Excess (-2.0-3.0) mmol/L ABG Hemoglobin (14.0-18.0) gm/dl Oxyhemoglobin (95.0-99.0) % Chloride 117.0 H (98-107) mmol/L Carbon Dioxide 14 L (22-30) mmol/L BUN 35 H (9-20) mg/dL POC Glucose (70-105) Calcium 10.3 H (8.4-10.2) mg/dL Vancomycin Trough (5.0-20.0) ug/mL Crossmatch - Imaging and cardiology Chest x-ray: report reviewed, image reviewed (diffuse bilateral infiltrates)
--- NOTE | 2019-12-15 11:10 | Progress Note ---
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 Avoid hypoglycemia -RD consult placed - Wean supplemental oxygen for target O2 sat's > 90% -Adjust minute ventilation for better gas exchange -ABG and CXR in am -Follow cultures and adjust antibiotic therapy for SAMMIE and culture results -Avoid nephrotoxins, adjust all medications for GFR and CrCL - continue bronchodilators with pulmonary hygiene per RT - continue to avoid benzodiazepines to reduce the possibility of delirium - prn analgesia per CPOT score - Maintenance of sleep-wake cycle, avoid delirium - PT/OT/ROM exercises - continue mobility protocol and skin assessment per protocol for pressure ulcer prevention - Monitor hemodynamics closely - continue other care per attending / other consultants CONDITION: CRITICAL PROGNOSIS: GUARDED CODE STATUS: FULL CODE The high probability of a clinically significant, sudden or life-threatening deterioration of the [respiratory, cardiovascular] system(s) required my full and direct attention, intervention and personal management. The aggregate critical care time was [35] minutes without overlap. Time includes spent on; [x] Data Review and interpretation [x] Patient assessment and monitoring of vital signs [x] Documentation [x] Medication orders and management Subjective Date of service: 12/15/19 Objective Vital Signs - 12hr 12/14/19 12/14/19 12/14/19 23:15 23:30 23:45 Temperature Pulse Rate 74 81 80 Pulse Rate [ Anterior Bilateral Throughout] Pulse Rate [ Bilateral] Pulse Rate [ From Monitor] Respiratory 30 H 16 28 H Rate Respiratory Rate [Anterior Bilateral Throughout] Respiratory Rate [Bilateral ] Blood Pressure 130/79 130/79 108/63 O2 Sat by Pulse 97 100 97 Oximetry 12/15/19 12/15/19 12/15/19 00:00 00:15 00:20 Temperature Pulse Rate 81 83 81 Pulse Rate [ Anterior Bilateral Throughout] Pulse Rate [ Bilateral] Pulse Rate [ From Monitor] Respiratory 25 H 30 H Rate Respiratory Rate [Anterior Bilateral Throughout] Respiratory Rate [Bilateral ] Blood Pressure 110/68 120/73 110/68 O2 Sat by Pulse 99 Oximetry 12/15/19 12/15/19 12/15/19 00:30 00:45 01:00 Temperature Pulse Rate 82 84 81 Pulse Rate [ Anterior Bilateral Throughout] Pulse Rate [ Bilateral] Pulse Rate [ From Monitor] Respiratory 31 H 35 H 31 H Rate Respiratory Rate [Anterior Bilateral Throughout] Respiratory Rate [Bilateral ] Blood Pressure 114/67 123/77 123/72 O2 Sat by Pulse Oximetry 12/15/19 12/15/19 12/15/19 01:15 01:30 01:37 Temperature Pulse Rate 86 88 Pulse Rate [ Anterior Bilateral Throughout] Pulse Rate [ 89 Bilateral] Pulse Rate [ From Monitor] Respiratory 32 H 35 H Rate Respiratory Rate [Anterior Bilateral Throughout] Respiratory 36 H Rate [Bilateral ] Blood Pressure 107/60 108/62 O2 Sat by Pulse 96 Oximetry 12/15/19 12/15/19 12/15/19 01:45 02:00 02:15 Temperature Pulse Rate 90 87 93 H Pulse Rate [ Anterior Bilateral Throughout] Pulse Rate [ Bilateral] Pulse Rate [ From Monitor] Respiratory 22 26 H 36 H Rate Respiratory Rate [Anterior Bilateral Throughout] Respiratory Rate [Bilateral ] Blood Pressure 121/66 109/59 127/71 O2 Sat by Pulse 96 96 95 Oximetry 12/15/19 12/15/19 12/15/19 02:30 02:45 03:00 Temperature Pulse Rate 90 91 H 93 H Pulse Rate [ Anterior Bilateral Throughout] Pulse Rate [ Bilateral] Pulse Rate [ From Monitor] Respiratory 32 H 34 H 34 H Rate Respiratory Rate [Anterior Bilateral Throughout] Respiratory Rate [Bilateral ] Blood Pressure 107/61 109/64 118/65 O2 Sat by Pulse 96 Oximetry 12/15/19 12/15/19 12/15/19 03:15 03:30 03:45 Temperature Pulse Rate 94 H 96 H 99 H Pulse Rate [ Anterior Bilateral Throughout] Pulse Rate [ Bilateral] Pulse Rate [ From Monitor] Respiratory 35 H 36 H 36 H Rate Respiratory Rate [Anterior Bilateral Throughout] Respiratory Rate [Bilateral ] Blood Pressure 119/67 119/65 117/64 O2 Sat by Pulse Oximetry 12/15/19 12/15/19 12/15/19 04:00 04:15 04:30 Temperature 97.7 F Pulse Rate 102 H 105 H 108 H Pulse Rate [ Anterior Bilateral Throughout] Pulse Rate [ Bilateral] Pulse Rate [ From Monitor] Respiratory 38 H 37 H 21 Rate Respiratory Rate [Anterior Bilateral Throughout] Respiratory Rate [Bilateral ] Blood Pressure 117/66 129/66 120/69 O2 Sat by Pulse 97 Oximetry 12/15/19 12/15/19 12/15/19 04:45 05:00 05:15 Temperature Pulse Rate 113 H 107 H 107 H Pulse Rate [ Anterior Bilateral Throughout] Pulse Rate [ Bilateral] Pulse Rate [ From Monitor] Respiratory 32 H 34 H 34 H Rate Respiratory Rate [Anterior Bilateral Throughout] Respiratory Rate [Bilateral ] Blood Pressure 131/62 115/55 107/57 O2 Sat by Pulse 95 95 Oximetry 12/15/19 12/15/19 12/15/19 05:20 05:30 05:45 Temperature Pulse Rate 109 H 109 H 108 H Pulse Rate [ Anterior Bilateral Throughout] Pulse Rate [ Bilateral] Pulse Rate [ From Monitor] Respiratory 38 H 33 H Rate Respiratory Rate [Anterior Bilateral Throughout] Respiratory Rate [Bilateral ] Blood Pressure 109/57 112/60 113/58 O2 Sat by Pulse 97 Oximetry 12/15/19 12/15/19 12/15/19 06:00 06:15 06:30 Temperature Pulse Rate 110 H 110 H 111 H Pulse Rate [ Anterior Bilateral Throughout] Pulse Rate [ Bilateral] Pulse Rate [ From Monitor] Respiratory 33 H 33 H 31 H Rate Respiratory Rate [Anterior Bilateral Throughout] Respiratory Rate [Bilateral ] Blood Pressure 118/58 119/58 117/56 O2 Sat by Pulse Oximetry 12/15/19 12/15/19 12/15/19 06:45 07:00 07:15 Temperature Pulse Rate 114 H 114 H 114 H Pulse Rate [ Anterior Bilateral Throughout] Pulse Rate [ Bilateral] Pulse Rate [ From Monitor] Respiratory 33 H 33 H 33 H Rate Respiratory Rate [Anterior Bilateral Throughout] Respiratory Rate [Bilateral ] Blood Pressure 115/57 116/56 113/56 O2 Sat by Pulse Oximetry 12/15/19 12/15/19 12/15/19 07:30 07:45 07:53 Temperature Pulse Rate 117 H 116 H 119 H Pulse Rate [ 117 H Anterior Bilateral Throughout] Pulse Rate [ Bilateral] Pulse Rate [ From Monitor] Respiratory 33 H 33 H Rate Respiratory 33 H Rate [Anterior Bilateral Throughout] Respiratory Rate [Bilateral ] Blood Pressure 123/56 112/54 114/56 O2 Sat by Pulse 96 Oximetry 12/15/19 12/15/19 12/15/19 08:00 08:15 08:30 Temperature 100.0 F H Pulse Rate 117 H 119 H 123 H Pulse Rate [ Anterior Bilateral Throughout] Pulse Rate [ Bilateral] Pulse Rate [ 126 H From Monitor] Respiratory 34 H 25 H 24 Rate Respiratory Rate [Anterior Bilateral Throughout] Respiratory Rate [Bilateral ] Blood Pressure 114/56 113/49 120/56 O2 Sat by Pulse 95 93 Oximetry 12/15/19 12/15/19 08:45 09:00 Temperature Pulse Rate 126 H 124 H Pulse Rate [ Anterior Bilateral Throughout] Pulse Rate [ Bilateral] Pulse Rate [ From Monitor] Respiratory 34 H 34 H Rate Respiratory Rate [Anterior Bilateral Throughout] Respiratory Rate [Bilateral ] Blood Pressure 112/51 113/50 O2 Sat by Pulse 93 94 Oximetry CBC and BMP: 12/15/19 05:30 12/15/19 05:30 ABG, PT/INR, D-dimer: ABG ABG pH 7.352 pH Units (7.350-7.450) 12/15/19 04:10 ABG pCO2 30.5 mm Hg 12/15/19 04:10 ABG pO2 71.3 mm Hg (80.0-90.0) L 12/15/19 04:10 ABG O2 Saturation 95.6 % (95.0-99.0) 12/15/19 04:10 PT/INR, D-dimer PT 15.1 Sec. (12.2-14.9) H 12/12/19 05:00 INR 1.17 (0.87-1.13) H 12/12/19 05:00 Abnormal lab findings: Abnormal Labs 12/12/19 12/12/19 12/12/19 04:35 05:00 05:00 RBC 2.39 L Hgb 7.7 L Hct 23.1 L MCV 97 H RDW 18.8 H Plt Count Lymph % (Auto) 9.9 L Lymph # 0.5 L Seg Neutrophils % 86.5 H Seg Neutrophils # PT INR ABG pH ABG pO2 ABG HCO3 ABG O2 Saturation ABG Base Excess ABG Hemoglobin Oxyhemoglobin Chloride Carbon Dioxide 19 L BUN 51 H Creatinine 1.9 H Glucose 117 H POC Glucose 129 H Lactic Acid Calcium AST 46 H ALT 72 H Troponin T 0.080 H Albumin 2.2 L LDL Cholesterol Direct 38 L Vancomycin Trough Crossmatch 12/12/19 12/12/19 12/12/19 05:00 05:00 05:00 RBC Hgb Hct MCV RDW Plt Count Lymph % (Auto) Lymph # Seg Neutrophils % Seg Neutrophils # PT 15.1 H INR 1.17 H ABG pH 7.320 L ABG pO2 95.6 H ABG HCO3 18.2 L ABG O2 Saturation 99.5 H ABG Base Excess -7.2 L ABG Hemoglobin 7.3 L Oxyhemoglobin 94.9 L Chloride Carbon Dioxide BUN Creatinine Glucose POC Glucose Lactic Acid 7.90 H* Calcium AST ALT Troponin T Albumin LDL Cholesterol Direct Vancomycin Trough Crossmatch 12/12/19 12/12/19 12/12/19 05:00 07:04 08:10 RBC Hgb Hct MCV RDW Plt Count Lymph % (Auto) Lymph # Seg Neutrophils % Seg Neutrophils # PT INR ABG pH ABG pO2 ABG HCO3 ABG O2 Saturation ABG Base Excess ABG Hemoglobin Oxyhemoglobin Chloride Carbon Dioxide BUN Creatinine Glucose POC Glucose Lactic Acid 7.30 H* 6.40 H* Calcium AST ALT Troponin T Albumin LDL Cholesterol Direct Vancomycin Trough Crossmatch See Detail 12/12/19 12/12/19 12/12/19 15:01 18:48 Unknown RBC Hgb Hct MCV RDW Plt Count Lymph % (Auto) Lymph # Seg Neutrophils % Seg Neutrophils # PT INR ABG pH ABG pO2 ABG HCO3 ABG O2 Saturation ABG Base Excess ABG Hemoglobin Oxyhemoglobin Chloride Carbon Dioxide BUN Creatinine Glucose POC Glucose 62 L Lactic Acid 2.90 H* 4.30 H* Calcium AST ALT Troponin T Albumin LDL Cholesterol Direct Vancomycin Trough Crossmatch 12/13/19 12/13/19 12/13/19 04:56 04:56 05:40 RBC 2.24 L Hgb 7.1 L Hct 21.6 L MCV 96 H RDW 19.9 H Plt Count 135 L Lymph % (Auto) 11.6 L Lymph # 1.1 L Seg Neutrophils % 79.2 H Seg Neutrophils # 7.8 H PT INR ABG pH ABG pO2 ABG HCO3 17.3 L ABG O2 Saturation ABG Base Excess -7.2 L ABG Hemoglobin 7.8 L Oxyhemoglobin Chloride 111.8 H Carbon Dioxide 16 L BUN 39 H Creatinine 1.6 H Glucose 101 H POC Glucose Lactic Acid Calcium AST ALT Troponin T Albumin LDL Cholesterol Direct Vancomycin Trough Crossmatch 12/13/19 12/13/19 12/14/19 18:05 23:24 04:22 RBC Hgb Hct MCV RDW Plt Count Lymph % (Auto) Lymph # Seg Neutrophils % Seg Neutrophils # PT INR ABG pH ABG pO2 156.5 H ABG HCO3 17.3 L ABG O2 Saturation ABG Base Excess -7.6 L ABG Hemoglobin 5.5 L Oxyhemoglobin Chloride Carbon Dioxide BUN Creatinine Glucose POC Glucose 165 H 110 H Lactic Acid Calcium AST ALT Troponin T Albumin LDL Cholesterol Direct Vancomycin Trough Crossmatch 12/14/19 12/14/19 12/14/19 06:18 06:45 06:45 RBC 1.98 L Hgb 6.3 L Hct 19.4 L* MCV 98 H RDW 20.3 H Plt Count 103 L Lymph % (Auto) 9.7 L Lymph # 0.9 L Seg Neutrophils % 81.4 H Seg Neutrophils # 7.8 H PT INR ABG pH ABG pO2 ABG HCO3 ABG O2 Saturation ABG Base Excess ABG Hemoglobin Oxyhemoglobin Chloride 115.3 H Carbon Dioxide 17 L BUN 38 H Creatinine 1.7 H Glucose 117 H POC Glucose 138 H Lactic Acid Calcium AST ALT Troponin T Albumin LDL Cholesterol Direct Vancomycin Trough Crossmatch 12/14/19 12/14/19 12/14/19 12:54 17:35 23:35 RBC Hgb Hct MCV RDW Plt Count Lymph % (Auto) Lymph # Seg Neutrophils % Seg Neutrophils # PT INR ABG pH ABG pO2 ABG HCO3 ABG O2 Saturation ABG Base Excess ABG Hemoglobin Oxyhemoglobin Chloride Carbon Dioxide BUN Creatinine Glucose POC Glucose 127 H 163 H 116 H Lactic Acid Calcium AST ALT Troponin T Albumin LDL Cholesterol Direct Vancomycin Trough Crossmatch 12/15/19 12/15/19 12/15/19 04:10 05:30 05:30 RBC 2.97 L Hgb 9.4 L D Hct 28.3 L D MCV 95 H RDW 17.8 H Plt Count 101 L Lymph % (Auto) 5.2 L Lymph # 0.5 L Seg Neutrophils % 87.5 H Seg Neutrophils # 8.2 H PT INR ABG pH ABG pO2 71.3 L ABG HCO3 16.5 L ABG O2 Saturation ABG Base Excess -7.9 L ABG Hemoglobin 10.9 L Oxyhemoglobin 93.4 L Chloride Carbon Dioxide BUN Creatinine Glucose POC Glucose Lactic Acid Calcium AST ALT Troponin T Albumin LDL Cholesterol Direct Vancomycin Trough 23.6 H Crossmatch 12/15/19 05:30 RBC Hgb Hct MCV RDW Plt Count Lymph % (Auto) Lymph # Seg Neutrophils % Seg Neutrophils # PT INR ABG pH ABG pO2 ABG HCO3 ABG O2 Saturation ABG Base Excess ABG Hemoglobin Oxyhemoglobin Chloride 117.0 H Carbon Dioxide 14 L BUN 35 H Creatinine Glucose POC Glucose Lactic Acid Calcium 10.3 H AST ALT Troponin T Albumin LDL Cholesterol Direct Vancomycin Trough Crossmatch
--- NOTE | 2019-12-15 12:03 | Gastroenterology Progress Note ---
Assessment and Plan (1) Symptomatic anemia Current Visit: Yes Status: Acute Plan to address problem: - H/H 9.4/28.3-s/p blood transfusion - continue to monitor H/H and transfuse as needed - s/p EGD 09/17/19 for CGE that showed antral gastritis and moderate distal e sophagitis - s/p EGD/PEG 10/03/19 that showed minimal atrophic gastritis and 2cm hiatal hernia - no active signs of bleeding (stool brown) - no plan for scope at this time, unless overt bleeding develops (patient currently critically ill on vent and pressor support) - continue protonix - consider heme consult - OK to continue tube feeds - continue supportive care - no further GI recommendations at this time, will sign off. Please call back if needed 2.severe sepsis 2/2 bilaternal pneumonia 3.acute respiratory failure 4.JULIA on CKD 5.CVA with asphasia on background of dementia 6.oropharyngeal dysphagia s/p PEG Subjective Date of service: 12/15/19 Principal diagnosis: anemia Interval history: Patient remains in critical condition in ICU on vent and pressor supportive. No active signs of bleeding overnight or this am per nursing. Objective - Constitutional Vitals: Temp Pulse Resp BP Pulse Ox 100.0 F H 109 H 34 H 111/50 96 12/15/19 08:00 12/15/19 11:42 12/15/19 09:00 12/15/19 11:42 12/15/19 11:42 General appearance: other (in ICU on vent and pressor support) - Respiratory Respiratory effort: other (vent) Respiratory: bilateral: diminished - Cardiovascular Rhythm: other (tachycardia) - Gastrointestinal General gastrointestinal: Present: soft, non-distended - Neurologic Neurological: other (unable to assess) - Labs CBC & Chem 7: 12/15/19 05:30 12/15/19 05:30 Labs: Laboratory Results - last 24 hr 12/12/19 12/14/19 12/14/19 05:00 12:54 17:35 WBC RBC Hgb Hct MCV MCH MCHC RDW Plt Count Lymph % (Auto) Sharp % (Auto) Eos % (Auto) Baso % (Auto) Lymph # Sharp # Eos # Baso # Seg Neutrophils % Seg Neutrophils # ABG pH ABG pCO2 ABG pO2 ABG HCO3 ABG O2 Saturation ABG O2 Content ABG Base Excess ABG Hemoglobin ABG Carboxyhemoglobin ABG Methemoglobin Oxyhemoglobin FiO2 Sodium Potassium Chloride Carbon Dioxide Anion Gap BUN Creatinine Estimated GFR BUN/Creatinine Ratio Glucose POC Glucose 127 H 163 H Calcium Vancomycin Trough Blood Type A POSITIVE Antibody Screen Negative Crossmatch See Detail 12/14/19 12/15/19 12/15/19 23:35 04:10 05:30 WBC RBC Hgb Hct MCV MCH MCHC RDW Plt Count Lymph % (Auto) Sharp % (Auto) Eos % (Auto) Baso % (Auto) Lymph # Sharp # Eos # Baso # Seg Neutrophils % Seg Neutrophils # ABG pH 7.352 ABG pCO2 30.5 ABG pO2 71.3 L ABG HCO3 16.5 L ABG O2 Saturation 95.6 ABG O2 Content 14.4 ABG Base Excess -7.9 L ABG Hemoglobin 10.9 L ABG Carboxyhemoglobin 1.6 ABG Methemoglobin 0.7 Oxyhemoglobin 93.4 L FiO2 25 Sodium Potassium Chloride Carbon Dioxide Anion Gap BUN Creatinine Estimated GFR BUN/Creatinine Ratio Glucose POC Glucose 116 H Calcium Vancomycin Trough 23.6 H Blood Type Antibody Screen Crossmatch 12/15/19 12/15/19 12/15/19 05:30 05:30 05:51 WBC 9.4 RBC 2.97 L Hgb 9.4 L D Hct 28.3 L D MCV 95 H MCH 32 MCHC 33 RDW 17.8 H Plt Count 101 L Lymph % (Auto) 5.2 L Sharp % (Auto) 4.7 Eos % (Auto) 2.4 Baso % (Auto) 0.2 Lymph # 0.5 L Sharp # 0.4 Eos # 0.2 Baso # 0.0 Seg Neutrophils % 87.5 H Seg Neutrophils # 8.2 H ABG pH ABG pCO2 ABG pO2 ABG HCO3 ABG O2 Saturation ABG O2 Content ABG Base Excess ABG Hemoglobin ABG Carboxyhemoglobin ABG Methemoglobin Oxyhemoglobin FiO2 Sodium 144 Potassium 3.8 Chloride 117.0 H Carbon Dioxide 14 L Anion Gap 17 BUN 35 H Creatinine 1.3 Estimated GFR > 60 BUN/Creatinine Ratio 27 Glucose 92 POC Glucose 85 Calcium 10.3 H Vancomycin Trough Blood Type Antibody Screen Crossmatch
--- NOTE | 2019-12-15 15:47 | Progress Note ---
Assessment and Plan Sepsis with b/l PNA (HCAP) - Sepsis with PNA, tachycardia, tachypnea, and lactic acidosis -Patient is on IV Vanco and cefepime, ID is following the patient -Blood cultures are negative so far -Sputum culture grew MRSA Acute hypoxic respiratory failure - intubated, consulted pulmonary - placed on scheduled nebs Septic shock, - on levophed, also cont iv fluid dementia, h/o - now intubated, family wants full code Dash chronic kidney disease, due to sepsis - cont to monitor, iv fluid thrombocytopenia with anemia -Hemoglobin dropped below 7 and s/p 2 units of PRBC transfused -GI consulted - no plan for endoscopy dyslipidemia, cont statin NSTEMI type 2 -chronically elevated, monitor for now - EF 45-50% on 10/27 CVA with aphasia s/p PEG placement - cont asp, statin, supportive care - started TF DVT; SCD. off heparin for severe anemia and thrombocytopenia Poor prognosis. The high probability of a clinically significant, sudden or life threatening deterioration of the [cardiovascular, respiratory] system(s) required my full and direct attention, intervention and personal management. The aggregate critical care time was [32] minutes. This time is in addition to time spent performing reported procedures but includes the following: [x] Data Review and interpretation [x] Patient assessment and monitoring of vital signs [x] Documentation [x] Medication orders and management Subjective Date of service: 12/15/19 Principal diagnosis: anemia Interval history: Patient was seen and evaluated this morning, patient is intubated and on mechanical ventilation. No family at bedside, discussed with RN Objective - Exam Narrative Exam: General appearance: Present: other (intubated and sedated) - EENT Eyes: Absent: scleral icterus, conjunctival injection ENT: other (ET tube in place) - Neck Neck: Present: supple - Respiratory Respiratory: bilateral: rales (on mechanical ventilation) - Cardiovascular Heart Sounds: Present: S1 & S2. Absent: rub, click - Extremities Extremities: pulses symmetrical, No edema Peripheral Pulses: within normal limits - Abdominal General gastrointestinal: Present: soft, non-tender, non-distended, normal bowel sounds, other (PEG tube in place) - Integumentary Integumentary: Present: clear, warm, dry - Musculoskeletal Musculoskeletal: other (no joint swelling or pain ) - Psychiatric Psychiatric: other (unable to assess) - Neurologic Neurologic: other (unable to assess) - Constitutional Vitals: Vital Signs - 12hr 12/15/19 12/15/19 12/15/19 04:00 04:15 04:30 Temperature 97.7 F Pulse Rate 102 H 105 H 108 H Pulse Rate [ Anterior Bilateral Throughout] Pulse Rate [ From Monitor] Respiratory 38 H 37 H 21 Rate Respiratory Rate [Anterior Bilateral Throughout] Blood Pressure 117/66 129/66 120/69 O2 Sat by Pulse 97 Oximetry 12/15/19 12/15/19 12/15/19 04:45 05:00 05:15 Temperature Pulse Rate 113 H 107 H 107 H Pulse Rate [ Anterior Bilateral Throughout] Pulse Rate [ From Monitor] Respiratory 32 H 34 H 34 H Rate Respiratory Rate [Anterior Bilateral Throughout] Blood Pressure 131/62 115/55 107/57 O2 Sat by Pulse 95 95 Oximetry 12/15/19 12/15/19 12/15/19 05:20 05:30 05:45 Temperature Pulse Rate 109 H 109 H 108 H Pulse Rate [ Anterior Bilateral Throughout] Pulse Rate [ From Monitor] Respiratory 38 H 33 H Rate Respiratory Rate [Anterior Bilateral Throughout] Blood Pressure 109/57 112/60 113/58 O2 Sat by Pulse 97 Oximetry 12/15/19 12/15/19 12/15/19 06:00 06:15 06:30 Temperature Pulse Rate 110 H 110 H 111 H Pulse Rate [ Anterior Bilateral Throughout] Pulse Rate [ From Monitor] Respiratory 33 H 33 H 31 H Rate Respiratory Rate [Anterior Bilateral Throughout] Blood Pressure 118/58 119/58 117/56 O2 Sat by Pulse Oximetry 12/15/19 12/15/19 12/15/19 06:45 07:00 07:15 Temperature Pulse Rate 114 H 114 H 114 H Pulse Rate [ Anterior Bilateral Throughout] Pulse Rate [ From Monitor] Respiratory 33 H 33 H 33 H Rate Respiratory Rate [Anterior Bilateral Throughout] Blood Pressure 115/57 116/56 113/56 O2 Sat by Pulse Oximetry 12/15/19 12/15/19 12/15/19 07:30 07:45 07:53 Temperature Pulse Rate 117 H 116 H 119 H Pulse Rate [ 117 H Anterior Bilateral Throughout] Pulse Rate [ From Monitor] Respiratory 33 H 33 H Rate Respiratory 33 H Rate [Anterior Bilateral Throughout] Blood Pressure 123/56 112/54 114/56 O2 Sat by Pulse 96 Oximetry 12/15/19 12/15/19 12/15/19 08:00 08:15 08:30 Temperature 100.0 F H Pulse Rate 117 H 119 H 123 H Pulse Rate [ Anterior Bilateral Throughout] Pulse Rate [ 126 H From Monitor] Respiratory 34 H 25 H 24 Rate Respiratory Rate [Anterior Bilateral Throughout] Blood Pressure 114/56 113/49 120/56 O2 Sat by Pulse 95 93 Oximetry 12/15/19 12/15/19 12/15/19 08:45 09:00 09:15 Temperature Pulse Rate 126 H 124 H 122 H Pulse Rate [ Anterior Bilateral Throughout] Pulse Rate [ From Monitor] Respiratory 34 H 34 H 32 H Rate Respiratory Rate [Anterior Bilateral Throughout] Blood Pressure 112/51 113/50 111/52 O2 Sat by Pulse 93 94 95 Oximetry 12/15/19 12/15/19 12/15/19 09:30 09:45 10:00 Temperature Pulse Rate 120 H 117 H 116 H Pulse Rate [ Anterior Bilateral Throughout] Pulse Rate [ From Monitor] Respiratory 34 H 31 H 31 H Rate Respiratory Rate [Anterior Bilateral Throughout] Blood Pressure 113/50 110/52 109/50 O2 Sat by Pulse Oximetry 12/15/19 12/15/19 12/15/19 10:15 10:30 10:45 Temperature Pulse Rate 115 H 113 H 112 H Pulse Rate [ Anterior Bilateral Throughout] Pulse Rate [ From Monitor] Respiratory 33 H 30 H 30 H Rate Respiratory Rate [Anterior Bilateral Throughout] Blood Pressure 115/54 120/52 109/52 O2 Sat by Pulse 95 96 Oximetry 12/15/19 12/15/19 12/15/19 11:00 11:15 11:30 Temperature Pulse Rate 113 H 113 H 112 H Pulse Rate [ Anterior Bilateral Throughout] Pulse Rate [ From Monitor] Respiratory 30 H 32 H 32 H Rate Respiratory Rate [Anterior Bilateral Throughout] Blood Pressure 113/51 109/50 112/48 O2 Sat by Pulse 94 Oximetry 12/15/19 12/15/19 12/15/19 11:42 11:45 12:00 Temperature 99.5 F Pulse Rate 109 H 109 H 108 H Pulse Rate [ Anterior Bilateral Throughout] Pulse Rate [ 108 H From Monitor] Respiratory 27 H 28 H Rate Respiratory Rate [Anterior Bilateral Throughout] Blood Pressure 111/50 111/50 104/49 O2 Sat by Pulse 96 97 Oximetry 12/15/19 12/15/19 12/15/19 12:15 12:30 12:45 Temperature Pulse Rate 107 H 110 H 108 H Pulse Rate [ Anterior Bilateral Throughout] Pulse Rate [ From Monitor] Respiratory 30 H 32 H 31 H Rate Respiratory Rate [Anterior Bilateral Throughout] Blood Pressure 111/53 109/51 110/52 O2 Sat by Pulse 95 95 Oximetry 12/15/19 12/15/19 12/15/19 13:00 13:15 13:30 Temperature Pulse Rate 108 H 106 H 106 H Pulse Rate [ Anterior Bilateral Throughout] Pulse Rate [ From Monitor] Respiratory 31 H 30 H 29 H Rate Respiratory Rate [Anterior Bilateral Throughout] Blood Pressure 112/56 112/52 111/58 O2 Sat by Pulse Oximetry 12/15/19 12/15/19 12/15/19 13:45 14:00 14:18 Temperature Pulse Rate 105 H 109 H Pulse Rate [ 106 H Anterior Bilateral Throughout] Pulse Rate [ From Monitor] Respiratory 31 H 34 H Rate Respiratory 30 H Rate [Anterior Bilateral Throughout] Blood Pressure 112/55 125/60 O2 Sat by Pulse 96 Oximetry - Labs CBC & Chem 7: 12/18/19 04:23 12/15/19 05:30 Labs: Abnormal lab results 12/14/19 12/14/19 12/15/19 Range/Units 17:35 23:35 04:10 RBC (3.65-5.03) M/mm3 Hgb (11.8-15.2) gm/dl Hct (35.5-45.6) % MCV (84-94) fl RDW (13.2-15.2) % Plt Count (140-440) K/mm3 Lymph % (Auto) (13.4-35.0) % Lymph # (1.2-5.4) K/mm3 Seg Neutrophils % (40.0-70.0) % Seg Neutrophils # (1.8-7.7) K/mm3 ABG pO2 71.3 L (80.0-90.0) mm Hg ABG HCO3 16.5 L (20.0-26.0) mmol/L ABG Base Excess -7.9 L (-2.0-3.0) mmol/L ABG Hemoglobin 10.9 L (14.0-18.0) gm/dl Oxyhemoglobin 93.4 L (95.0-99.0) % Chloride (98-107) mmol/L Carbon Dioxide (22-30) mmol/L BUN (9-20) mg/dL POC Glucose 163 H 116 H (70-105) Calcium (8.4-10.2) mg/dL Vancomycin Trough (5.0-20.0) ug/mL 12/15/19 12/15/19 12/15/19 Range/Units 05:30 05:30 05:30 RBC 2.97 L (3.65-5.03) M/mm3 Hgb 9.4 L D (11.8-15.2) gm/dl Hct 28.3 L D (35.5-45.6) % MCV 95 H (84-94) fl RDW 17.8 H (13.2-15.2) % Plt Count 101 L (140-440) K/mm3 Lymph % (Auto) 5.2 L (13.4-35.0) % Lymph # 0.5 L (1.2-5.4) K/mm3 Seg Neutrophils % 87.5 H (40.0-70.0) % Seg Neutrophils # 8.2 H (1.8-7.7) K/mm3 ABG pO2 (80.0-90.0) mm Hg ABG HCO3 (20.0-26.0) mmol/L ABG Base Excess (-2.0-3.0) mmol/L ABG Hemoglobin (14.0-18.0) gm/dl Oxyhemoglobin (95.0-99.0) % Chloride 117.0 H (98-107) mmol/L Carbon Dioxide 14 L (22-30) mmol/L BUN 35 H (9-20) mg/dL POC Glucose (70-105) Calcium 10.3 H (8.4-10.2) mg/dL Vancomycin Trough 23.6 H (5.0-20.0) ug/mL
[2019-12-15] MEDS: fentaNYL 100 MCG/2 ML INJ IV PRN (21:30)
[2019-12-15] MEDS: SENNOSIDES ORAL LIQD 8.8 MG/5 ML ORAL LIQD FEEDTUBE SCH (21:31)
[2019-12-16] MEDS: IPRATROPIUM/ALBUTEROL SULFATE 3 ML AMPUL.NEB IH SCH ×4 (02:18→20:44)
--- NOTE | 2019-12-16 02:26 | XRay Report ---
CHEST 1 VIEW INDICATION / CLINICAL INFORMATION: follow up respiratory failure. COMPARISON: 12/15/2019 FINDINGS: SUPPORT DEVICES: Stable, satisfactory device positioning. HEART / MEDIASTINUM: No significant abnormality. LUNGS / PLEURA: Diffuse bilateral patchy parenchymal disease is noted unchanged. Very small bilateral pleural effusions are stable. No pneumothorax. ADDITIONAL FINDINGS: No significant additional findings. IMPRESSION: 1. Stable appearance of bilateral patchy parenchymal disease. Signer Name: Meaghan Hernandes MD Signed: 12/16/2019 2:21 AM Workstation Name: [id number]
[2019-12-16] MEDS: LINEZOLID 600 MG/300 ML BAG IV SCH ×2 (04:14→14:10)
[2019-12-16 04:51] LABS: ABG Base Excess -6.5 mmol/L (-2.0-3.0); ABG Methemoglobin 0.6 % (0.0-1.5); ABG Oxygen Saturation 98.8 % (95.0-99.0); ABG PCO2 31.9 mm Hg; ABG PH 7.369 pH Units (7.350-7.450); ABG PO2 146.9 mm Hg (80.0-90.0)
[2019-12-16 06:52] LABS: Hematocrit 29.1 % (35.5-45.6); Hemoglobin 9.6 gm/dl (11.8-15.2); Mean Corpuscular HGB Conc 33 % (32-34); Mean Corpuscular Volume 96 fl (84-94); Platelet Count 105 K/mm3 (140-440); Red Blood Count 3.04 M/mm3 (3.65-5.03); Red Cell Distribution Width 17.5 % (13.2-15.2)
--- NOTE | 2019-12-16 08:55 | Progress Note ---
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 Avoid hypoglycemia -RD consult placed - Wean supplemental oxygen for target O2 sat's > 90% -Adjust minute ventilation for better gas exchange -ABG and CXR in am -Follow cultures and adjust antibiotic therapy for SAMMIE and culture results -Avoid nephrotoxins, adjust all medications for GFR and CrCL - continue bronchodilators with pulmonary hygiene per RT - continue to avoid benzodiazepines to reduce the possibility of delirium - prn analgesia per CPOT score - Maintenance of sleep-wake cycle, avoid delirium - PT/OT/ROM exercises - continue mobility protocol and skin assessment per protocol for pressure ulcer prevention - Monitor hemodynamics closely - continue other care per attending / other consultants CONDITION: CRITICAL PROGNOSIS: GUARDED CODE STATUS: FULL CODE The high probability of a clinically significant, sudden or life-threatening deterioration of the [respiratory, cardiovascular] system(s) required my full and direct attention, intervention and personal management. The aggregate critical care time was [35] minutes without overlap. Time includes spent on; [x] Data Review and interpretation [x] Patient assessment and monitoring of vital signs [x] Documentation [x] Medication orders and management Subjective Date of service: 12/16/19 Principal diagnosis: anemia Objective Vital Signs - 12hr 12/15/19 12/15/19 12/15/19 21:00 21:15 21:30 Temperature Pulse Rate 115 H 117 H 114 H Pulse Rate [ Anterior Bilateral Throughout] Respiratory 27 H 26 H 35 H Rate Respiratory Rate [Anterior Bilateral Throughout] Blood Pressure 108/55 117/58 120/63 O2 Sat by Pulse 95 96 96 Oximetry 12/15/19 12/15/19 12/15/19 21:45 22:00 22:04 Temperature Pulse Rate 110 H 111 H 115 H Pulse Rate [ Anterior Bilateral Throughout] Respiratory 29 H 30 H 29 H Rate Respiratory Rate [Anterior Bilateral Throughout] Blood Pressure 115/60 117/56 117/56 O2 Sat by Pulse 98 Oximetry 12/15/19 12/15/19 12/15/19 22:15 22:30 22:45 Temperature Pulse Rate 111 H 106 H 112 H Pulse Rate [ Anterior Bilateral Throughout] Respiratory 30 H 29 H 33 H Rate Respiratory Rate [Anterior Bilateral Throughout] Blood Pressure 119/61 116/57 125/66 O2 Sat by Pulse 98 Oximetry 12/15/19 12/15/19 12/15/19 23:00 23:15 23:30 Temperature Pulse Rate 110 H 110 H 110 H Pulse Rate [ Anterior Bilateral Throughout] Respiratory 31 H 29 H 33 H Rate Respiratory Rate [Anterior Bilateral Throughout] Blood Pressure 125/62 118/63 126/64 O2 Sat by Pulse 100 Oximetry 12/15/19 12/15/19 12/16/19 23:35 23:45 00:00 Temperature 99.4 F Pulse Rate 110 H 113 H Pulse Rate [ Anterior Bilateral Throughout] Respiratory 31 H 33 H Rate Respiratory Rate [Anterior Bilateral Throughout] Blood Pressure 128/64 132/74 O2 Sat by Pulse Oximetry 12/16/19 12/16/19 12/16/19 00:15 00:27 00:30 Temperature Pulse Rate 110 H 109 H 109 H Pulse Rate [ Anterior Bilateral Throughout] Respiratory 33 H 33 H Rate Respiratory Rate [Anterior Bilateral Throughout] Blood Pressure 130/73 130/73 130/73 O2 Sat by Pulse 98 Oximetry 12/16/19 12/16/19 12/16/19 00:45 01:00 01:15 Temperature Pulse Rate 107 H 103 H 106 H Pulse Rate [ Anterior Bilateral Throughout] Respiratory 31 H 30 H 30 H Rate Respiratory Rate [Anterior Bilateral Throughout] Blood Pressure 126/70 122/64 129/68 O2 Sat by Pulse Oximetry 12/16/19 12/16/19 12/16/19 01:30 01:45 02:00 Temperature Pulse Rate 106 H 105 H 109 H Pulse Rate [ Anterior Bilateral Throughout] Respiratory 31 H 30 H 30 H Rate Respiratory Rate [Anterior Bilateral Throughout] Blood Pressure 133/69 123/66 131/67 O2 Sat by Pulse 97 Oximetry 12/16/19 12/16/19 12/16/19 02:15 02:18 02:30 Temperature Pulse Rate 111 H 106 H Pulse Rate [ 110 H Anterior Bilateral Throughout] Respiratory 30 H 19 Rate Respiratory 25 H Rate [Anterior Bilateral Throughout] Blood Pressure 136/69 129/68 O2 Sat by Pulse 95 95 Oximetry 12/16/19 12/16/19 12/16/19 02:45 03:00 03:15 Temperature Pulse Rate 114 H 113 H 111 H Pulse Rate [ Anterior Bilateral Throughout] Respiratory 31 H 33 H 33 H Rate Respiratory Rate [Anterior Bilateral Throughout] Blood Pressure 142/76 142/76 140/75 O2 Sat by Pulse 96 96 96 Oximetry 12/16/19 12/16/19 12/16/19 03:30 03:31 03:45 Temperature 99.2 F Pulse Rate 113 H 112 H Pulse Rate [ Anterior Bilateral Throughout] Respiratory 20 33 H Rate Respiratory Rate [Anterior Bilateral Throughout] Blood Pressure 143/71 138/71 O2 Sat by Pulse 95 96 Oximetry 12/16/19 12/16/19 12/16/19 03:50 04:00 04:15 Temperature Pulse Rate 112 H 111 H 114 H Pulse Rate [ Anterior Bilateral Throughout] Respiratory 30 H 33 H Rate Respiratory Rate [Anterior Bilateral Throughout] Blood Pressure 138/71 141/76 140/77 O2 Sat by Pulse 98 97 94 Oximetry 12/16/19 12/16/19 12/16/19 04:30 04:45 05:00 Temperature Pulse Rate 114 H 111 H 110 H Pulse Rate [ Anterior Bilateral Throughout] Respiratory 33 H 26 H 20 Rate Respiratory Rate [Anterior Bilateral Throughout] Blood Pressure 142/72 134/73 136/75 O2 Sat by Pulse 95 Oximetry 12/16/19 12/16/19 12/16/19 05:15 05:30 05:45 Temperature Pulse Rate 109 H 110 H 111 H Pulse Rate [ Anterior Bilateral Throughout] Respiratory 26 H 29 H 31 H Rate Respiratory Rate [Anterior Bilateral Throughout] Blood Pressure 140/77 130/79 147/80 O2 Sat by Pulse Oximetry 12/16/19 12/16/19 12/16/19 06:00 06:15 06:30 Temperature Pulse Rate 107 H 111 H 108 H Pulse Rate [ Anterior Bilateral Throughout] Respiratory 18 24 25 H Rate Respiratory Rate [Anterior Bilateral Throughout] Blood Pressure 138/80 150/83 141/78 O2 Sat by Pulse Oximetry 12/16/19 12/16/19 12/16/19 06:45 07:00 07:15 Temperature Pulse Rate 103 H 103 H 113 H Pulse Rate [ Anterior Bilateral Throughout] Respiratory 38 H 25 H 37 H Rate Respiratory Rate [Anterior Bilateral Throughout] Blood Pressure 136/74 132/75 136/88 O2 Sat by Pulse 100 100 Oximetry 12/16/19 12/16/19 12/16/19 07:30 07:45 08:00 Temperature Pulse Rate 101 H 99 H 100 H Pulse Rate [ Anterior Bilateral Throughout] Respiratory 20 26 H 24 Rate Respiratory Rate [Anterior Bilateral Throughout] Blood Pressure 132/74 134/76 140/81 O2 Sat by Pulse Oximetry 12/16/19 12/16/19 12/16/19 08:15 08:30 08:45 Temperature Pulse Rate 98 H 98 H 95 H Pulse Rate [ Anterior Bilateral Throughout] Respiratory 24 30 H 22 Rate Respiratory Rate [Anterior Bilateral Throughout] Blood Pressure 136/78 133/82 138/79 O2 Sat by Pulse Oximetry 12/16/19 08:51 Temperature Pulse Rate Pulse Rate [ 96 H Anterior Bilateral Throughout] Respiratory Rate Respiratory 20 Rate [Anterior Bilateral Throughout] Blood Pressure O2 Sat by Pulse Oximetry Constitutional: no acute distress, other (chronically ill looking, atraumatic, normocephalic) Eyes: other (orally intubated ETT at 23cm, no patient-ventilator dys-synchrony) ENT: oropharynx moist Neck: supple, no JVD Effort: normal Ascultation: Bilateral: diminished breath sounds, rhonchi Cardiovascular: regular rate and rhythm, other (S1,S2, no murmurs) Gastrointestinal: normoactive bowel sounds, soft, non-tender, other (PEG in pl radha) Integumentary: normal Extremities: no cyanosis, no edema Neurologic: unable to assess Psychiatric: other (unable to assess) CBC and BMP: 12/16/19 06:30 12/15/19 05:30 ABG, PT/INR, D-dimer: ABG ABG pH 7.369 pH Units (7.350-7.450) 12/16/19 04:30 ABG pCO2 31.9 mm Hg 12/16/19 04:30 ABG pO2 146.9 mm Hg (80.0-90.0) H 12/16/19 04:30 ABG O2 Saturation 98.8 % (95.0-99.0) 12/16/19 04:30 PT/INR, D-dimer PT 15.1 Sec. (12.2-14.9) H 12/12/19 05:00 INR 1.17 (0.87-1.13) H 12/12/19 05:00 Abnormal lab findings: Abnormal Labs 12/12/19 12/12/19 12/12/19 04:35 05:00 05:00 RBC 2.39 L Hgb 7.7 L Hct 23.1 L MCV 97 H RDW 18.8 H Plt Count Lymph % (Auto) 9.9 L Lymph # 0.5 L Seg Neutrophils % 86.5 H Seg Neutrophils # PT INR ABG pH ABG pO2 ABG HCO3 ABG O2 Saturation ABG Base Excess ABG Hemoglobin Oxyhemoglobin Chloride Carbon Dioxide 19 L BUN 51 H Creatinine 1.9 H Glucose 117 H POC Glucose 129 H Lactic Acid Calcium AST 46 H ALT 72 H Troponin T 0.080 H Albumin 2.2 L LDL Cholesterol Direct 38 L Vancomycin Trough Crossmatch 12/12/19 12/12/19 12/12/19 05:00 05:00 05:00 RBC Hgb Hct MCV RDW Plt Count Lymph % (Auto) Lymph # Seg Neutrophils % Seg Neutrophils # PT 15.1 H INR 1.17 H ABG pH 7.320 L ABG pO2 95.6 H ABG HCO3 18.2 L ABG O2 Saturation 99.5 H ABG Base Excess -7.2 L ABG Hemoglobin 7.3 L Oxyhemoglobin 94.9 L Chloride Carbon Dioxide BUN Creatinine Glucose POC Glucose Lactic Acid 7.90 H* Calcium AST ALT Troponin T Albumin LDL Cholesterol Direct Vancomycin Trough Crossmatch 12/12/19 12/12/19 12/12/19 05:00 07:04 08:10 RBC Hgb Hct MCV RDW Plt Count Lymph % (Auto) Lymph # Seg Neutrophils % Seg Neutrophils # PT INR ABG pH ABG pO2 ABG HCO3 ABG O2 Saturation ABG Base Excess ABG Hemoglobin Oxyhemoglobin Chloride Carbon Dioxide BUN Creatinine Glucose POC Glucose Lactic Acid 7.30 H* 6.40 H* Calcium AST ALT Troponin T Albumin LDL Cholesterol Direct Vancomycin Trough Crossmatch See Detail 12/12/19 12/12/19 12/12/19 15:01 18:48 Unknown RBC Hgb Hct MCV RDW Plt Count Lymph % (Auto) Lymph # Seg Neutrophils % Seg Neutrophils # PT INR ABG pH ABG pO2 ABG HCO3 ABG O2 Saturation ABG Base Excess ABG Hemoglobin Oxyhemoglobin Chloride Carbon Dioxide BUN Creatinine Glucose POC Glucose 62 L Lactic Acid 2.90 H* 4.30 H* Calcium AST ALT Troponin T Albumin LDL Cholesterol Direct Vancomycin Trough Crossmatch 12/13/19 12/13/19 12/13/19 04:56 04:56 05:40 RBC 2.24 L Hgb 7.1 L Hct 21.6 L MCV 96 H RDW 19.9 H Plt Count 135 L Lymph % (Auto) 11.6 L Lymph # 1.1 L Seg Neutrophils % 79.2 H Seg Neutrophils # 7.8 H PT INR ABG pH ABG pO2 ABG HCO3 17.3 L ABG O2 Saturation ABG Base Excess -7.2 L ABG Hemoglobin 7.8 L Oxyhemoglobin Chloride 111.8 H Carbon Dioxide 16 L BUN 39 H Creatinine 1.6 H Glucose 101 H POC Glucose Lactic Acid Calcium AST ALT Troponin T Albumin LDL Cholesterol Direct Vancomycin Trough Crossmatch 12/13/19 12/13/19 12/14/19 18:05 23:24 04:22 RBC Hgb Hct MCV RDW Plt Count Lymph % (Auto) Lymph # Seg Neutrophils % Seg Neutrophils # PT INR ABG pH ABG pO2 156.5 H ABG HCO3 17.3 L ABG O2 Saturation ABG Base Excess -7.6 L ABG Hemoglobin 5.5 L Oxyhemoglobin Chloride Carbon Dioxide BUN Creatinine Glucose POC Glucose 165 H 110 H Lactic Acid Calcium AST ALT Troponin T Albumin LDL Cholesterol Direct Vancomycin Trough Crossmatch 12/14/19 12/14/19 12/14/19 06:18 06:45 06:45 RBC 1.98 L Hgb 6.3 L Hct 19.4 L* MCV 98 H RDW 20.3 H Plt Count 103 L Lymph % (Auto) 9.7 L Lymph # 0.9 L Seg Neutrophils % 81.4 H Seg Neutrophils # 7.8 H PT INR ABG pH ABG pO2 ABG HCO3 ABG O2 Saturation ABG Base Excess ABG Hemoglobin Oxyhemoglobin Chloride 115.3 H Carbon Dioxide 17 L BUN 38 H Creatinine 1.7 H Glucose 117 H POC Glucose 138 H Lactic Acid Calcium AST ALT Troponin T Albumin LDL Cholesterol Direct Vancomycin Trough Crossmatch 12/14/19 12/14/19 12/14/19 12:54 17:35 23:35 RBC Hgb Hct MCV RDW Plt Count Lymph % (Auto) Lymph # Seg Neutrophils % Seg Neutrophils # PT INR ABG pH ABG pO2 ABG HCO3 ABG O2 Saturation ABG Base Excess ABG Hemoglobin Oxyhemoglobin Chloride Carbon Dioxide BUN Creatinine Glucose POC Glucose 127 H 163 H 116 H Lactic Acid Calcium AST ALT Troponin T Albumin LDL Cholesterol Direct Vancomycin Trough Crossmatch 12/15/19 12/15/19 12/15/19 04:10 05:30 05:30 RBC 2.97 L Hgb 9.4 L D Hct 28.3 L D MCV 95 H RDW 17.8 H Plt Count 101 L Lymph % (Auto) 5.2 L Lymph # 0.5 L Seg Neutrophils % 87.5 H Seg Neutrophils # 8.2 H PT INR ABG pH ABG pO2 71.3 L ABG HCO3 16.5 L ABG O2 Saturation ABG Base Excess -7.9 L ABG Hemoglobin 10.9 L Oxyhemoglobin 93.4 L Chloride Carbon Dioxide BUN Creatinine Glucose POC Glucose Lactic Acid Calcium AST ALT Troponin T Albumin LDL Cholesterol Direct Vancomycin Trough 23.6 H Crossmatch 12/15/19 12/15/19 12/15/19 05:30 12:35 17:24 RBC Hgb Hct MCV RDW Plt Count Lymph % (Auto) Lymph # Seg Neutrophils % Seg Neutrophils # PT INR ABG pH ABG pO2 ABG HCO3 ABG O2 Saturation ABG Base Excess ABG Hemoglobin Oxyhemoglobin Chloride 117.0 H Carbon Dioxide 14 L BUN 35 H Creatinine Glucose POC Glucose 120 H 155 H Lactic Acid Calcium 10.3 H AST ALT Troponin T Albumin LDL Cholesterol Direct Vancomycin Trough Crossmatch 12/16/19 12/16/19 12/16/19 04:30 05:38 06:30 RBC 3.04 L Hgb 9.6 L Hct 29.1 L MCV 96 H RDW 17.5 H Plt Count 105 L Lymph % (Auto) Lymph # Seg Neutrophils % Seg Neutrophils # PT INR ABG pH ABG pO2 146.9 H ABG HCO3 18.0 L ABG O2 Saturation ABG Base Excess -6.5 L ABG Hemoglobin 8.9 L Oxyhemoglobin Chloride Carbon Dioxide BUN Creatinine Glucose POC Glucose 128 H Lactic Acid Calcium AST ALT Troponin T Albumin LDL Cholesterol Direct Vancomycin Trough Crossmatch
[2019-12-16] MEDS ORDERED: MAGNESIUM CITRATE 300 ML ORAL LIQD PO ONE (10:00)
--- NOTE | 2019-12-16 10:54 | XRay Report ---
ABDOMEN 1 VIEW INDICATION: distention, vomiting. COMPARISON: 10/01/2019 FINDINGS: Moderate air distention of the stomach with a gastrostomy tube. Gas in the splenic flexure of the col on and minimal additional gas in the abdomen. No free air. IMPRESSION: 1. No evidence of bowel obstruction or perforation.. Signer Name: Jay Rubin MD Signed: 12/16/2019 10:50 AM Workstation Name: [id number]
[2019-12-16] MEDS: allopurinoL 300 MG TAB PO SCH (12:02)
[2019-12-16] MEDS: FOLIC ACID 1 MG TAB PO SCH (12:02)
[2019-12-16] MEDS: SENNOSIDES ORAL LIQD 8.8 MG/5 ML ORAL LIQD FEEDTUBE SCH ×2 (12:02→22:09)
[2019-12-16] MEDS: LANSOPRAZOLE 30 MG SOLUTAB FEEDTUBE SCH (12:02)
[2019-12-16] MEDS: ASPIRIN 81 MG TAB CHEW PO SCH (12:02)
[2019-12-16] MEDS: MULTIVITAMINS 5 ML ORAL LIQUID PO SCH (12:03)
--- NOTE | 2019-12-16 13:55 | Progress Note ---
Assessment and Plan Acute hypoxic respiratory failure - due to b/l PNA - intubated, consulted pulmonary - placed on scheduled nebs, unable to wean off - cont to monitor Sepsis with b/l PNA (HCAP) - Sepsis with PNA, tachycardia, tachypnea, and lactic acidosis -Patient is on IV linezolid, ID is following the patient -Blood cultures are negative so far -Sputum culture grew MRSA Septic shock, - on levophed, also cont iv fluid - wean off pressor dementia, h/o - now intubated, family wants full code Dash chronic kidney disease, due to sepsis - cont to monitor, iv fluid - resolved thrombocytopenia with anemia -Hemoglobin dropped below 7 and s/p 2 units of PRBC transfused -GI consulted - no plan for endoscopy dyslipidemia, cont statin NSTEMI type 2 -chronically elevated, monitor for now - EF 45-50% on 10/27 CVA with aphasia s/p PEG placement - cont asp, statin, supportive care - started TF DVT; SCD. off heparin for severe anemia and thrombocytopenia Poor prognosis. offered hospice to daughter but she declined The high probability of a clinically significant, sudden or life threatening deterioration of the [cardiovascular, respiratory] system(s) required my full and direct attention, intervention and personal management. The aggregate critical care time was [32] minutes. This time is in addition to time spent performing reported procedures but includes the following: [x] Data Review and interpretation [x] Patient assessment and monitoring of vital signs [x] Documentation [x] Medication orders and management Brief History: 79-year-old male with hypertension, dementia, CKD, 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 He was sent to the emergency room from the [facility] on 12/12/2019 with worsening mental status, respiratory distress and hypoxia: Now being treated for b/l PNA, respiratory failure. Subjective Date of service: 12/16/19 Principal diagnosis: anemia Interval history: Patient was seen and evaluated this morning, patient is intubated and on mechanical ventilation. discussed with Daughter at bedside, discussed with RN Objective - Exam Narrative Exam: General appearance: Present: other (intubated and sedated) - EENT Eyes: Absent: scleral icterus, conjunctival injection ENT: other (ET tube in place) - Neck Neck: Present: supple - Respiratory Respiratory: bilateral: rales (on mechanical ventilation) - Cardiovascular Heart Sounds: Present: S1 & S2. Absent: rub, click - Extremities Extremities: pulses symmetrical, No edema Peripheral Pulses: within normal limits - Abdominal General gastrointestinal: Present: soft, non-tender, non-distended, normal bowel sounds, other (PEG tube in place) - Integumentary Integumentary: Present: clear, warm, dry - Musculoskeletal Musculoskeletal: other (no joint swelling or pain ) - Psychiatric Psychiatric: other (unable to assess) - Neurologic Neurologic: other (unable to assess) - Constitutional Vitals: Vital Signs - 12hr 12/16/19 12/16/19 12/16/19 02:00 02:15 02:18 Temperature Pulse Rate 109 H 111 H Pulse Rate [ 110 H Anterior Bilateral Throughout] Respiratory 30 H 30 H Rate Respiratory 25 H Rate [Anterior Bilateral Throughout] Blood Pressure 131/67 136/69 O2 Sat by Pulse 97 95 Oximetry 12/16/19 12/16/19 12/16/19 02:30 02:45 03:00 Temperature Pulse Rate 106 H 114 H 113 H Pulse Rate [ Anterior Bilateral Throughout] Respiratory 19 31 H 33 H Rate Respiratory Rate [Anterior Bilateral Throughout] Blood Pressure 129/68 142/76 142/76 O2 Sat by Pulse 95 96 96 Oximetry 12/16/19 12/16/19 12/16/19 03:15 03:30 03:31 Temperature 99.2 F Pulse Rate 111 H 113 H Pulse Rate [ Anterior Bilateral Throughout] Respiratory 33 H 20 Rate Respiratory Rate [Anterior Bilateral Throughout] Blood Pressure 140/75 143/71 O2 Sat by Pulse 96 95 Oximetry 12/16/19 12/16/19 12/16/19 03:45 03:50 04:00 Temperature Pulse Rate 112 H 112 H 111 H Pulse Rate [ Anterior Bilateral Throughout] Respiratory 33 H 30 H Rate Respiratory Rate [Anterior Bilateral Throughout] Blood Pressure 138/71 138/71 141/76 O2 Sat by Pulse 96 98 97 Oximetry 12/16/19 12/16/19 12/16/19 04:15 04:30 04:45 Temperature Pulse Rate 114 H 114 H 111 H Pulse Rate [ Anterior Bilateral Throughout] Respiratory 33 H 33 H 26 H Rate Respiratory Rate [Anterior Bilateral Throughout] Blood Pressure 140/77 142/72 134/73 O2 Sat by Pulse 94 95 Oximetry 12/16/19 12/16/19 12/16/19 05:00 05:15 05:30 Temperature Pulse Rate 110 H 109 H 110 H Pulse Rate [ Anterior Bilateral Throughout] Respiratory 20 26 H 29 H Rate Respiratory Rate [Anterior Bilateral Throughout] Blood Pressure 136/75 140/77 130/79 O2 Sat by Pulse Oximetry 12/16/19 12/16/19 12/16/19 05:45 06:00 06:15 Temperature Pulse Rate 111 H 107 H 111 H Pulse Rate [ Anterior Bilateral Throughout] Respiratory 31 H 18 24 Rate Respiratory Rate [Anterior Bilateral Throughout] Blood Pressure 147/80 138/80 150/83 O2 Sat by Pulse Oximetry 12/16/19 12/16/19 12/16/19 06:30 06:45 07:00 Temperature Pulse Rate 108 H 103 H 103 H Pulse Rate [ Anterior Bilateral Throughout] Respiratory 25 H 38 H 25 H Rate Respiratory Rate [Anterior Bilateral Throughout] Blood Pressure 141/78 136/74 132/75 O2 Sat by Pulse 100 Oximetry 12/16/19 12/16/19 12/16/19 07:15 07:30 07:45 Temperature Pulse Rate 113 H 101 H 99 H Pulse Rate [ Anterior Bilateral Throughout] Respiratory 37 H 20 26 H Rate Respiratory Rate [Anterior Bilateral Throughout] Blood Pressure 136/88 132/74 134/76 O2 Sat by Pulse 100 Oximetry 12/16/19 12/16/19 12/16/19 08:00 08:15 08:30 Temperature 98.9 F Pulse Rate 100 H 98 H 98 H Pulse Rate [ Anterior Bilateral Throughout] Respiratory 24 24 30 H Rate Respiratory Rate [Anterior Bilateral Throughout] Blood Pressure 140/81 136/78 133/82 O2 Sat by Pulse Oximetry 12/16/19 12/16/19 12/16/19 08:45 08:51 08:53 Temperature Pulse Rate 95 H 95 H Pulse Rate [ 96 H Anterior Bilateral Throughout] Respiratory 22 Rate Respiratory 20 Rate [Anterior Bilateral Throughout] Blood Pressure 138/79 138/79 O2 Sat by Pulse 97 Oximetry 12/16/19 12/16/19 12/16/19 09:00 09:15 09:30 Temperature Pulse Rate 99 H 112 H 113 H Pulse Rate [ Anterior Bilateral Throughout] Respiratory 33 H 34 H 33 H Rate Respiratory Rate [Anterior Bilateral Throughout] Blood Pressure 145/79 139/79 148/78 O2 Sat by Pulse Oximetry 12/16/19 12/16/19 12/16/19 09:45 10:00 10:15 Temperature Pulse Rate 116 H 121 H 117 H Pulse Rate [ Anterior Bilateral Throughout] Respiratory 32 H 29 H 18 Rate Respiratory Rate [Anterior Bilateral Throughout] Blood Pressure 142/75 149/81 136/84 O2 Sat by Pulse 100 100 Oximetry 12/16/19 12/16/19 12/16/19 10:30 10:46 11:00 Temperature Pulse Rate 109 H 98 H Pulse Rate [ Anterior Bilateral Throughout] Respiratory 32 H 26 H Rate Respiratory Rate [Anterior Bilateral Throughout] Blood Pressure 125/64 125/64 142/78 O2 Sat by Pulse 100 100 100 Oximetry 12/16/19 12/16/19 12/16/19 11:16 11:30 11:46 Temperature Pulse Rate 100 H 94 H Pulse Rate [ Anterior Bilateral Throughout] Respiratory 25 H 24 Rate Respiratory Rate [Anterior Bilateral Throughout] Blood Pressure 142/78 142/78 142/78 O2 Sat by Pulse 100 100 100 Oximetry 12/16/19 12/16/19 12/16/19 12:00 12:16 12:30 Temperature 98.7 F Pulse Rate 95 H 91 H 91 H Pulse Rate [ Anterior Bilateral Throughout] Respiratory 26 H 24 24 Rate Respiratory Rate [Anterior Bilateral Throughout] Blood Pressure 134/78 142/78 142/78 O2 Sat by Pulse 100 100 100 Oximetry 12/16/19 12/16/19 12/16/19 12:46 13:00 13:21 Temperature Pulse Rate 92 H 89 Pulse Rate [ 89 Anterior Bilateral Throughout] Respiratory 22 23 Rate Respiratory 20 Rate [Anterior Bilateral Throughout] Blood Pressure 142/78 134/76 O2 Sat by Pulse 100 100 Oximetry 12/16/19 13:22 Temperature Pulse Rate 86 Pulse Rate [ Anterior Bilateral Throughout] Respiratory Rate Respiratory Rate [Anterior Bilateral Throughout] Blood Pressure 134/76 O2 Sat by Pulse 100 Oximetry - Labs CBC & Chem 7: 12/18/19 04:23 12/15/19 05:30 Labs: Abnormal lab results 12/15/19 12/15/19 12/16/19 Range/Units 12:35 17:24 04:30 RBC (3.65-5.03) M/mm3 Hgb (11.8-15.2) gm/dl Hct (35.5-45.6) % MCV (84-94) fl RDW (13.2-15.2) % Plt Count (140-440) K/mm3 ABG pO2 146.9 H (80.0-90.0) mm Hg ABG HCO3 18.0 L (20.0-26.0) mmol/L ABG Base Excess -6.5 L (-2.0-3.0) mmol/L ABG Hemoglobin 8.9 L (14.0-18.0) gm/dl POC Glucose 120 H 155 H (70-105) 12/16/19 12/16/19 12/16/19 Range/Units 05:38 06:30 12:10 RBC 3.04 L (3.65-5.03) M/mm3 Hgb 9.6 L (11.8-15.2) gm/dl Hct 29.1 L (35.5-45.6) % MCV 96 H (84-94) fl RDW 17.5 H (13.2-15.2) % Plt Count 105 L (140-440) K/mm3 ABG pO2 (80.0-90.0) mm Hg ABG HCO3 (20.0-26.0) mmol/L ABG Base Excess (-2.0-3.0) mmol/L ABG Hemoglobin (14.0-18.0) gm/dl POC Glucose 128 H 124 H (70-105)
--- NOTE | 2019-12-16 14:02 | Progress Note ---
Assessment and Plan Cultures: 12/12/2019 sputum culture: MRSA 12/12/2019 blood culture: No growth in 72 hours A/P: 79-year-old male with hypertension, dementia, CKD, CVA with a aphasia and status post PEG tube placement, resident of group home, multiple recent hospitalizations, most recently in November 2019 with bilateral pneumonia, acute anemia requiring antibiotics as well as blood transfusion. He was sent to the emergency room from the group home on 12/12/2019 with worsening mental status, respiratory distress and hypoxia: #Septic shock, likely secondary to bilateral pneumonia: Sputum culture growing MRSA, vancomycin SAMMIE of 2.0. Patient with multiple recent hospitalizations and group home resident and multiple exposures to vancomycin. UA not suggestive of infection. #Acute respiratory failure: Secondary to above. On mechanical ventilation. #JULIA on CKD: renally dose abx. #Acute anemia: Receiving blood transfusions. #Mild transaminitis: Likely secondary to septic shock. #Mild thrombocytopenia: Could be related to sepsis. Monitor. Recs: Doing better, continue IV linezolid. Monitor platelets closely. Monitor CBC Chana Mandujano MD, FACP [facility] ([facility] C: [phone] O: [phone] F: [phone] Subjective Date of service: 12/16/19 Principal diagnosis: anemia Interval history: Afebrile. Remains off pressors. Intubated, on the vent. No concerns per RN. Objective - Exam Narrative Exam: Physical Exam: Constitutional: opening eyes, intubated Head, Ears, Nose: Normocephalic, atraumatic. External ears, nose normal Eyes: Conjunctivae/corneas clear. No icterus. No ptosis. Neck: Intubated Oral: Intubated Cardiovascular: S1, S2 normal Respiratory: clear b/l GI: Soft, non-tender; bowel sounds +, PEG tube present Musculoskeletal: No pedal edema, no cyanosis. Skin: No rash or abscess Hem/Lymphatic: No palpable cervical or supraclavicular nodes. No lymphangitis Psych: no agitation Neurological: opening eyes, intubated, on vent - Constitutional Vitals: Vital Signs Temp Pulse Resp BP Pulse Ox 98.7 F 86 20 134/76 100 12/16/19 12:00 12/16/19 13:22 12/16/19 13:21 12/16/19 13:22 12/16/19 13:22 Temperature -Last 24 Hours Temperature 98.7 F Temperature 98.9 F Temperature 99.2 F Temperature 99.4 F Temperature 98.4 F Temperature 97.5 F Temperature 97.5 F - Labs CBC & Chem 7: 12/16/19 06:30 12/15/19 05:30 Labs: Abnormal lab results 12/15/19 12/15/19 12/16/19 Range/Units 12:35 17:24 04:30 RBC (3.65-5.03) M/mm3 Hgb (11.8-15.2) gm/dl Hct (35.5-45.6) % MCV (84-94) fl RDW (13.2-15.2) % Plt Count (140-440) K/mm3 ABG pO2 146.9 H (80.0-90.0) mm Hg ABG HCO3 18.0 L (20.0-26.0) mmol/L ABG Base Excess -6.5 L (-2.0-3.0) mmol/L ABG Hemoglobin 8.9 L (14.0-18.0) gm/dl POC Glucose 120 H 155 H (70-105) 12/16/19 12/16/19 12/16/19 Range/Units 05:38 06:30 12:10 RBC 3.04 L (3.65-5.03) M/mm3 Hgb 9.6 L (11.8-15.2) gm/dl Hct 29.1 L (35.5-45.6) % MCV 96 H (84-94) fl RDW 17.5 H (13.2-15.2) % Plt Count 105 L (140-440) K/mm3 ABG pO2 (80.0-90.0) mm Hg ABG HCO3 (20.0-26.0) mmol/L ABG Base Excess (-2.0-3.0) mmol/L ABG Hemoglobin (14.0-18.0) gm/dl POC Glucose 128 H 124 H (70-105)
[2019-12-16] MEDS: HEPARIN 5,000 UNIT/1 ML VIAL SUB-Q SCH ×2 (14:12→22:10)
[2019-12-17] MEDS: IPRATROPIUM/ALBUTEROL SULFATE 3 ML AMPUL.NEB IH SCH ×4 (01:22→20:53)
[2019-12-17] MEDS: LINEZOLID 600 MG/300 ML BAG IV SCH ×2 (03:03→15:22)
--- NOTE | 2019-12-17 03:52 | XRay Report ---
CHEST 1 VIEW INDICATION / CLINICAL INFORMATION: follow up respiratory failure. COMPARISON: 12/16/2019 FINDINGS: SUPPORT DEVICES: Stable, satisfactory device positioning. HEART / MEDIASTINUM: No significant abnormality. LUNGS / PLEURA: Patchy pulmonary opacities bilaterally appear minimally improved. No pneumothorax. ADDITIONAL FINDINGS: No significant additional findings. IMPRESSION: 1. Minimal improvement in previously described bilateral patchy parenchymal disease. Signer Name: Meaghan Hernandes MD Signed: 12/17/2019 3:47 AM Workstation Name: [id number]
[2019-12-17 05:08] LABS: ABG Base Excess -4.6 mmol/L (-2.0-3.0); ABG HCO3 20.3 mmol/L (20.0-26.0); ABG Methemoglobin 0.7 % (0.0-1.5); ABG Oxygen Saturation 97.9 % (95.0-99.0); ABG PCO2 36.9 mm Hg; ABG PH 7.359 pH Units (7.350-7.450); ABG PO2 109.1 mm Hg (80.0-90.0)
[2019-12-17] MEDS: HEPARIN 5,000 UNIT/1 ML VIAL SUB-Q SCH ×3 (05:51→22:00)
[2019-12-17] MEDS: fentaNYL 100 MCG/2 ML INJ IV PRN (05:51)
--- NOTE | 2019-12-17 09:21 | Progress Note ---
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 Avoid hypoglycemia -RD consult placed - Wean supplemental oxygen for target O2 sat's > 90% -Adjust minute ventilation for better gas exchange -ABG and CXR in am -Follow cultures and adjust antibiotic therapy for SAMMIE and culture results -Avoid nephrotoxins, adjust all medications for GFR and CrCL - continue bronchodilators with pulmonary hygiene per RT - continue to avoid benzodiazepines to reduce the possibility of delirium - prn analgesia per CPOT score - Maintenance of sleep-wake cycle, avoid delirium - PT/OT/ROM exercises - continue mobility protocol and skin assessment per protocol for pressure ulcer prevention - Monitor hemodynamics closely - continue other care per attending / other consultants CONDITION: CRITICAL PROGNOSIS: GUARDED CODE STATUS: FULL CODE The high probability of a clinically significant, sudden or life-threatening deterioration of the [respiratory, cardiovascular] system(s) required my full and direct attention, intervention and personal management. The aggregate critical care time was [35] minutes without overlap. Time includes spent on; [x] Data Review and interpretation [x] Patient assessment and monitoring of vital signs [x] Documentation [x] Medication orders and management Subjective Date of service: 12/17/19 Principal diagnosis: anemia Objective Vital Signs - 12hr 12/16/19 12/16/19 12/16/19 21:30 21:46 22:00 Temperature Pulse Rate 88 85 85 Pulse Rate [ Anterior Bilateral Throughout] Respiratory 28 H 27 H 24 Rate Respiratory Rate [Anterior Bilateral Throughout] Blood Pressure 163/88 163/88 147/85 O2 Sat by Pulse 100 100 100 Oximetry 12/16/19 12/16/19 12/16/19 22:16 22:30 22:46 Temperature Pulse Rate 89 92 H 86 Pulse Rate [ Anterior Bilateral Throughout] Respiratory 28 H 32 H 28 H Rate Respiratory Rate [Anterior Bilateral Throughout] Blood Pressure 147/85 147/85 147/85 O2 Sat by Pulse 99 100 100 Oximetry 12/16/19 12/16/19 12/16/19 23:00 23:16 23:28 Temperature Pulse Rate 90 94 H 93 H Pulse Rate [ Anterior Bilateral Throughout] Respiratory 21 14 31 H Rate Respiratory Rate [Anterior Bilateral Throughout] Blood Pressure 161/93 161/93 161/93 O2 Sat by Pulse 100 100 99 Oximetry 12/16/19 12/16/19 12/17/19 23:30 23:46 00:00 Temperature 98.1 F Pulse Rate 89 88 86 Pulse Rate [ Anterior Bilateral Throughout] Respiratory 28 H 30 H 28 H Rate Respiratory Rate [Anterior Bilateral Throughout] Blood Pressure 161/93 161/93 159/87 O2 Sat by Pulse 99 99 100 Oximetry 12/17/19 12/17/19 12/17/19 00:15 00:30 00:46 Temperature Pulse Rate 91 H 95 H 90 Pulse Rate [ Anterior Bilateral Throughout] Respiratory 30 H 32 H 25 H Rate Respiratory Rate [Anterior Bilateral Throughout] Blood Pressure 159/87 159/87 159/87 O2 Sat by Pulse 99 99 100 Oximetry 12/17/19 12/17/19 12/17/19 00:58 01:00 01:16 Temperature Pulse Rate 89 89 85 Pulse Rate [ Anterior Bilateral Throughout] Respiratory 23 20 Rate Respiratory Rate [Anterior Bilateral Throughout] Blood Pressure 159/87 159/87 143/82 O2 Sat by Pulse 99 100 100 Oximetry 12/17/19 12/17/19 12/17/19 01:30 01:46 01:53 Temperature Pulse Rate 88 85 Pulse Rate [ 83 Anterior Bilateral Throughout] Respiratory 19 28 H Rate Respiratory 20 Rate [Anterior Bilateral Throughout] Blood Pressure 143/82 143/82 O2 Sat by Pulse 98 99 Oximetry 12/17/19 12/17/19 12/17/19 02:00 02:16 02:30 Temperature Pulse Rate 82 89 81 Pulse Rate [ Anterior Bilateral Throughout] Respiratory 27 H 22 29 H Rate Respiratory Rate [Anterior Bilateral Throughout] Blood Pressure 152/80 152/80 152/80 O2 Sat by Pulse 99 99 100 Oximetry 12/17/19 12/17/19 12/17/19 02:46 03:00 03:16 Temperature Pulse Rate 106 H 98 H 86 Pulse Rate [ Anterior Bilateral Throughout] Respiratory 20 27 H Rate Respiratory Rate [Anterior Bilateral Throughout] Blood Pressure 152/80 162/87 162/87 O2 Sat by Pulse 99 99 98 Oximetry 12/17/19 12/17/19 12/17/19 03:30 03:42 03:46 Temperature 98.7 F Pulse Rate 81 83 Pulse Rate [ Anterior Bilateral Throughout] Respiratory 20 24 Rate Respiratory Rate [Anterior Bilateral Throughout] Blood Pressure 162/87 162/87 O2 Sat by Pulse 98 99 Oximetry 12/17/19 12/17/19 12/17/19 03:56 04:00 04:16 Temperature Pulse Rate 79 77 79 Pulse Rate [ Anterior Bilateral Throughout] Respiratory 17 17 Rate Respiratory Rate [Anterior Bilateral Throughout] Blood Pressure 162/87 162/87 162/87 O2 Sat by Pulse 99 100 100 Oximetry 12/17/19 12/17/19 12/17/19 04:30 04:46 05:00 Temperature Pulse Rate 85 76 83 Pulse Rate [ Anterior Bilateral Throughout] Respiratory 29 H 26 H 14 Rate Respiratory Rate [Anterior Bilateral Throughout] Blood Pressure 162/87 162/87 153/79 O2 Sat by Pulse 99 100 99 Oximetry 12/17/19 12/17/19 12/17/19 05:16 05:30 05:46 Temperature Pulse Rate 71 79 71 Pulse Rate [ Anterior Bilateral Throughout] Respiratory 9 L 20 23 Rate Respiratory Rate [Anterior Bilateral Throughout] Blood Pressure 153/79 153/79 153/79 O2 Sat by Pulse 99 99 99 Oximetry 12/17/19 12/17/19 12/17/19 06:00 06:16 06:30 Temperature Pulse Rate 71 74 74 Pulse Rate [ Anterior Bilateral Throughout] Respiratory 24 21 21 Rate Respiratory Rate [Anterior Bilateral Throughout] Blood Pressure 148/80 148/80 148/80 O2 Sat by Pulse 99 98 99 Oximetry 12/17/19 12/17/19 12/17/19 06:46 07:00 07:16 Temperature Pulse Rate 72 86 83 Pulse Rate [ Anterior Bilateral Throughout] Respiratory 20 22 20 Rate Respiratory Rate [Anterior Bilateral Throughout] Blood Pressure 148/80 142/113 142/113 O2 Sat by Pulse 99 98 99 Oximetry 12/17/19 12/17/19 07:46 08:00 Temperature 97.9 F Pulse Rate 79 Pulse Rate [ 79 Anterior Bilateral Throughout] Respiratory Rate Respiratory 18 Rate [Anterior Bilateral Throughout] Blood Pressure 157/84 O2 Sat by Pulse 98 Oximetry Constitutional: no acute distress, other (chronically ill looking, atraumatic, normocephalic) Eyes: other (orally intubated ETT at 23cm, no patient-ventilator dys-synchrony) ENT: oropharynx moist Neck: supple, no JVD Effort: normal Ascultation: Bilateral: diminished breath sounds, rhonchi Cardiovascular: regular rate and rhythm, other (S1,S2, no murmurs) Gastrointestinal: normoactive bowel sounds, soft, non-tender, other (PEG in place) Integumentary: normal Extremities: no cyanosis, no edema Neurologic: unable to assess Psychiatric: other (unable to assess) CBC and BMP: 12/16/19 06:30 12/15/19 05:30 ABG, PT/INR, D-dimer: ABG ABG pH 7.359 pH Units (7.350-7.450) 12/17/19 04:40 ABG pCO2 36.9 mm Hg 12/17/19 04:40 ABG pO2 109.1 mm Hg (80.0-90.0) H 12/17/19 04:40 ABG O2 Saturation 97.9 % (95.0-99.0) 12/17/19 04:40 PT/INR, D-dimer PT 15.1 Sec. (12.2-14.9) H 12/12/19 05:00 INR 1.17 (0.87-1.13) H 12/12/19 05:00 Abnormal lab findings: Abnormal Labs 12/12/19 12/12/19 12/12/19 04:35 05:00 05:00 RBC 2.39 L Hgb 7.7 L Hct 23.1 L MCV 97 H RDW 18.8 H Plt Count Lymph % (Auto) 9.9 L Lymph # 0.5 L Seg Neutrophils % 86.5 H Seg Neutrophils # PT INR ABG pH ABG pO2 ABG HCO3 ABG O2 Saturation ABG Base Excess ABG Hemoglobin Oxyhemoglobin Chloride Carbon Dioxide 19 L BUN 51 H Creatinine 1.9 H Glucose 117 H POC Glucose 129 H Lactic Acid Calcium AST 46 H ALT 72 H Troponin T 0.080 H Albumin 2.2 L LDL Cholesterol Direct 38 L Vancomycin Trough Crossmatch 12/12/19 12/12/19 12/12/19 05:00 05:00 05:00 RBC Hgb Hct MCV RDW Plt Count Lymph % (Auto) Lymph # Seg Neutrophils % Seg Neutrophils # PT 15.1 H INR 1.17 H ABG pH 7.320 L ABG pO2 95.6 H ABG HCO3 18.2 L ABG O2 Saturation 99.5 H ABG Base Excess -7.2 L ABG Hemoglobin 7.3 L Oxyhemoglobin 94.9 L Chloride Carbon Dioxide BUN Creatinine Glucose POC Glucose Lactic Acid 7.90 H* Calcium AST ALT Troponin T Albumin LDL Cholesterol Direct Vancomycin Trough Crossmatch 12/12/19 12/12/19 12/12/19 05:00 07:04 08:10 RBC Hgb Hct MCV RDW Plt Count Lymph % (Auto) Lymph # Seg Neutrophils % Seg Neutrophils # PT INR ABG pH ABG pO2 ABG HCO3 ABG O2 Saturation ABG Base Excess ABG Hemoglobin Oxyhemoglobin Chloride Carbon Dioxide BUN Creatinine Glucose POC Glucose Lactic Acid 7.30 H* 6.40 H* Calcium AST ALT Troponin T Albumin LDL Cholesterol Direct Vancomycin Trough Crossmatch See Detail 12/12/19 12/12/19 12/12/19 15:01 18:48 Unknown RBC Hgb Hct MCV RDW Plt Count Lymph % (Auto) Lymph # Seg Neutrophils % Seg Neutrophils # PT INR ABG pH ABG pO2 ABG HCO3 ABG O2 Saturation ABG Base Excess ABG Hemoglobin Oxyhemoglobin Chloride Carbon Dioxide BUN Creatinine Glucose POC Glucose 62 L Lactic Acid 2.90 H* 4.30 H* Calcium AST ALT Troponin T Albumin LDL Cholesterol Direct Vancomycin Trough Crossmatch 12/13/19 12/13/19 12/13/19 04:56 04:56 05:40 RBC 2.24 L Hgb 7.1 L Hct 21.6 L MCV 96 H RDW 19.9 H Plt Count 135 L Lymph % (Auto) 11.6 L Lymph # 1.1 L Seg Neutrophils % 79.2 H Seg Neutrophils # 7.8 H PT INR ABG pH ABG pO2 ABG HCO3 17.3 L ABG O2 Saturation ABG Base Excess -7.2 L ABG Hemoglobin 7.8 L Oxyhemoglobin Chloride 111.8 H Carbon Dioxide 16 L BUN 39 H Creatinine 1.6 H Glucose 101 H POC Glucose Lactic Acid Calcium AST ALT Troponin T Albumin LDL Cholesterol Direct Vancomycin Trough Crossmatch 12/13/19 12/13/19 12/14/19 18:05 23:24 04:22 RBC Hgb Hct MCV RDW Plt Count Lymph % (Auto) Lymph # Seg Neutrophils % Seg Neutrophils # PT INR ABG pH ABG pO2 156.5 H ABG HCO3 17.3 L ABG O2 Saturation ABG Base Excess -7.6 L ABG Hemoglobin 5.5 L Oxyhemoglobin Chloride Carbon Dioxide BUN Creatinine Glucose POC Glucose 165 H 110 H Lactic Acid Calcium AST ALT Troponin T Albumin LDL Cholesterol Direct Vancomycin Trough Crossmatch 12/14/19 12/14/19 12/14/19 06:18 06:45 06:45 RBC 1.98 L Hgb 6.3 L Hct 19.4 L* MCV 98 H RDW 20.3 H Plt Count 103 L Lymph % (Auto) 9.7 L Lymph # 0.9 L Seg Neutrophils % 81.4 H Seg Neutrophils # 7.8 H PT INR ABG pH ABG pO2 ABG HCO3 ABG O2 Saturation ABG Base Excess ABG Hemoglobin Oxyhemoglobin Chloride 115.3 H Carbon Dioxide 17 L BUN 38 H Creatinine 1.7 H Glucose 117 H POC Glucose 138 H Lactic Acid Calcium AST ALT Troponin T Albumin LDL Cholesterol Direct Vancomycin Trough Crossmatch 12/14/19 12/14/19 12/14/19 12:54 17:35 23:35 RBC Hgb Hct MCV RDW Plt Count Lymph % (Auto) Lymph # Seg Neutrophils % Seg Neutrophils # PT INR ABG pH ABG pO2 ABG HCO3 ABG O2 Saturation ABG Base Excess ABG Hemoglobin Oxyhemoglobin Chloride Carbon Dioxide BUN Creatinine Glucose POC Glucose 127 H 163 H 116 H Lactic Acid Calcium AST ALT Troponin T Albumin LDL Cholesterol Direct Vancomycin Trough Crossmatch 12/15/19 12/15/19 12/15/19 04:10 05:30 05:30 RBC 2.97 L Hgb 9.4 L D Hct 28.3 L D MCV 95 H RDW 17.8 H Plt Count 101 L Lymph % (Auto) 5.2 L Lymph # 0.5 L Seg Neutrophils % 87.5 H Seg Neutrophils # 8.2 H PT INR ABG pH ABG pO2 71.3 L ABG HCO3 16.5 L ABG O2 Saturation ABG Base Excess -7.9 L ABG Hemoglobin 10.9 L Oxyhemoglobin 93.4 L Chloride Carbon Dioxide BUN Creatinine Glucose POC Glucose Lactic Acid Calcium AST ALT Troponin T Albumin LDL Cholesterol Direct Vancomycin Trough 23.6 H Crossmatch 12/15/19 12/15/19 12/15/19 05:30 12:35 17:24 RBC Hgb Hct MCV RDW Plt Count Lymph % (Auto) Lymph # Seg Neutrophils % Seg Neutrophils # PT INR ABG pH ABG pO2 ABG HCO3 ABG O2 Saturation ABG Base Excess ABG Hemoglobin Oxyhemoglobin Chloride 117.0 H Carbon Dioxide 14 L BUN 35 H Creatinine Glucose POC Glucose 120 H 155 H Lactic Acid Calcium 10.3 H AST ALT Troponin T Albumin LDL Cholesterol Direct Vancomycin Trough Crossmatch 12/16/19 12/16/19 12/16/19 04:30 05:38 06:30 RBC 3.04 L Hgb 9.6 L Hct 29.1 L MCV 96 H RDW 17.5 H Plt Count 105 L Lymph % (Auto) Lymph # Seg Neutrophils % Seg Neutrophils # PT INR ABG pH ABG pO2 146.9 H ABG HCO3 18.0 L ABG O2 Saturation ABG Base Excess -6.5 L ABG Hemoglobin 8.9 L Oxyhemoglobin Chloride Carbon Dioxide BUN Creatinine Glucose POC Glucose 128 H Lactic Acid Calcium AST ALT Troponin T Albumin LDL Cholesterol Direct Vancomycin Trough Crossmatch 12/16/19 12/16/19 12/17/19 12:10 17:52 04:40 RBC Hgb Hct MCV RDW Plt Count Lymph % (Auto) Lymph # Seg Neutrophils % Seg Neutrophils # PT INR ABG pH ABG pO2 109.1 H ABG HCO3 ABG O2 Saturation ABG Base Excess -4.6 L ABG Hemoglobin 10.9 L Oxyhemoglobin Chloride Carbon Dioxide BUN Creatinine Glucose POC Glucose 124 H 136 H Lactic Acid Calcium AST ALT Troponin T Albumin LDL Cholesterol Direct Vancomycin Trough Crossmatch 12/17/19 05:18 RBC Hgb Hct MCV RDW Plt Count Lymph % (Auto) Lymph # Seg Neutrophils % Seg Neutrophils # PT INR ABG pH ABG pO2 ABG HCO3 ABG O2 Saturation ABG Base Excess ABG Hemoglobin Oxyhemoglobin Chloride Carbon Dioxide BUN Creatinine Glucose POC Glucose 140 H Lactic Acid Calcium AST ALT Troponin T Albumin LDL Cholesterol Direct Vancomycin Trough Crossmatch
[2019-12-17] MEDS: allopurinoL 300 MG TAB PO SCH (09:46)
[2019-12-17] MEDS: MULTIVITAMINS 5 ML ORAL LIQUID PO SCH (09:46)
[2019-12-17] MEDS: LANSOPRAZOLE 30 MG SOLUTAB FEEDTUBE SCH (09:46)
[2019-12-17] MEDS: ASPIRIN 81 MG TAB CHEW PO SCH (09:46)
[2019-12-17] MEDS: FOLIC ACID 1 MG TAB PO SCH (09:46)
[2019-12-17] MEDS: SENNOSIDES ORAL LIQD 8.8 MG/5 ML ORAL LIQD FEEDTUBE SCH ×2 (09:46→21:10)
--- NOTE | 2019-12-17 11:54 | Progress Note ---
Assessment and Plan Cultures: 12/12/2019 sputum culture: MRSA 12/12/2019 blood culture: No growth A/P: 79-year-old male with hypertension, dementia, CKD, CVA with a aphasia and status post PEG tube placement, resident of detention, multiple recent hospitalizations, most recently in November 2019 with bilateral pneumonia, acute anemia requiring antibiotics as well as blood transfusion. He was sent to the emergency room from the detention on 12/12/2019 with worsening mental status, respiratory distress and hypoxia: #Septic shock, likely secondary to bilateral pneumonia: Sputum culture growing MRSA, vancomycin SAMMIE of 2.0. Patient with multiple recent hospitalizations and detention resident and multiple exposures to vancomycin. UA not suggestive of infection. #Acute respiratory failure: Secondary to above. On mechanical ventilation. #JULIA on CKD: renally dose abx. #Acute anemia: Receiving blood transfusions. #Mild transaminitis: Likely secondary to septic shock. #Mild thrombocytopenia: Could be related to sepsis. Monitor. Recs: Continue IV linezolid 600 mg q12 hrs, plan for 7-10 days depending on clinical course CBC in AM Chana Mandujano MD, FACP [facility] C: [phone] O: [phone] F: [phone] Subjective Date of service: 12/17/19 Principal diagnosis: anemia Interval history: Afebrile. No hemodynamic instability. Intubated, on the vent. Objective - Exam Narrative Exam: Physical Exam: Constitutional: opening eyes, intubated Head, Ears, Nose: Normocephalic, atraumatic. External ears, nose normal Eyes: Conjunctivae/corneas clear. No icterus. No ptosis. Neck: Intubated Oral: Intubated Cardiovascular: S1, S2 normal Respiratory: clear b/l GI: Soft, non-tender; bowel sounds +, PEG tube present Musculoskeletal: No pedal edema, no cyanosis. Skin: No rash or abscess Hem/Lymphatic: No palpable cervical or supraclavicular nodes. No lymphangitis Psych: no agitation Neurological: opening eyes, intubated, on vent - Constitutional Vitals: Vital Signs Temp Pulse Resp BP Pulse Ox 97.9 F 78 32 H 169/88 95 12/17/19 07:46 12/17/19 11:43 12/17/19 11:43 12/17/19 11:43 12/17/19 11:43 Temperature -Last 24 Hours Temperature 97.9 F Temperature 98.7 F Temperature 98.1 F Temperature 97.7 F Temperature 97.3 F Temperature 98.7 F - Labs CBC & Chem 7: 12/16/19 06:30 12/15/19 05:30 Labs: Abnormal lab results 12/16/19 12/16/19 12/17/19 Range/Units 12:10 17:52 04:40 ABG pO2 109.1 H (80.0-90.0) mm Hg ABG Base Excess -4.6 L (-2.0-3.0) mmol/L ABG Hemoglobin 10.9 L (14.0-18.0) gm/dl POC Glucose 124 H 136 H (70-105) 12/17/19 12/17/19 Range/Units 05:18 11:45 ABG pO2 (80.0-90.0) mm Hg ABG Base Excess (-2.0-3.0) mmol/L ABG Hemoglobin (14.0-18.0) gm/dl POC Glucose 140 H 116 H (70-105) - Imaging and cardiology Chest x-ray: report reviewed, image reviewed (improving bilateral infiltrates)
--- NOTE | 2019-12-17 13:46 | Progress Note ---
Assessment and Plan Sepsis with b/l PNA (HCAP) - Sepsis with PNA, tachycardia, tachypnea, and lactic acidosis -Patient is on IV linezolid, ID is following the patient -Blood cultures are negative so far -Sputum culture grew MRSA Acute hypoxic respiratory failure - due to b/l PNA - intubated, consulted pulmonary - placed on scheduled nebs, unable to wean off - cont to monitor Septic shock, - on levophed, also cont iv fluid - wean off pressor dementia, h/o - now intubated, family wants full code Dash chronic kidney disease, due to sepsis - cont to monitor, iv fluid - resolved thrombocytopenia with anemia -Hemoglobin dropped below 7 and s/p 2 units of PRBC transfused -GI consulted - no plan for endoscopy dyslipidemia, cont statin NSTEMI type 2 -chronically elevated, monitor for now - EF 45-50% on 10/27 CVA with aphasia s/p PEG placement - cont asp, statin, supportive care - started TF DVT; SCD. off heparin for severe anemia and thrombocytopenia Poor prognosis. offered hospice to daughter but she declined The high probability of a clinically significant, sudden or life threatening deterioration of the [cardiovascular, respiratory] system(s) required my full and direct attention, intervention and personal management. The aggregate critical care time was [32] minutes. This time is in addition to time spent performing reported procedures but includes the following: [x] Data Review and interpretation [x] Patient assessment and monitoring of vital signs [x] Documentation [x] Medication orders and management Brief History: 79-year-old male with hypertension, dementia, CKD, CVA with a aphasia and status post PEG tube placement, resident of senior care, multiple recent hospitalizations, most recently in November 2019 with bilateral pneumonia, acute anemia requiring antibiotics as well as blood transfusion. He was sent to the emergency room from the senior care on 12/12/2019 with worsening mental status, respiratory distress and hypoxia: Now being treated for b/l PNA, respiratory failure. Subjective Date of service: 12/17/19 Principal diagnosis: anemia Interval history: Patient was seen and evaluated this morning, patient is intubated and on mechanical ventilation. discussed with RN Objective - Exam Narrative Exam: General appearance: Present: other (intubated and sedated) - EENT Eyes: Absent: scleral icterus, conjunctival injection ENT: other (ET tube in place) - Neck Neck: Present: supple - Respiratory Respiratory: bilateral: rales (on mechanical ventilation) - Cardiovascular Heart Sounds: Present: S1 & S2. Absent: rub, click - Extremities Extremities: pulses symmetrical, No edema Peripheral Pulses: within normal limits - Abdominal General gastrointestinal: Present: soft, non-tender, non-distended, normal bowel sounds, other (PEG tube in place) - Integumentary Integumentary: Present: clear, warm, dry - Musculoskeletal Musculoskeletal: other (no joint swelling or pain ) - Psychiatric Psychiatric: other (unable to assess) - Neurologic Neurologic: other (unable to assess) - Constitutional Vitals: Vital Signs - 12hr 12/17/19 12/17/19 12/17/19 01:53 02:00 02:16 Temperature Pulse Rate 82 89 Pulse Rate [ 83 Anterior Bilateral Throughout] Respiratory 27 H 22 Rate Respiratory 20 Rate [Anterior Bilateral Throughout] Blood Pressure 152/80 152/80 O2 Sat by Pulse 99 99 Oximetry 12/17/19 12/17/19 12/17/19 02:30 02:46 03:00 Temperature Pulse Rate 81 106 H 98 H Pulse Rate [ Anterior Bilateral Throughout] Respiratory 29 H 20 Rate Respiratory Rate [Anterior Bilateral Throughout] Blood Pressure 152/80 152/80 162/87 O2 Sat by Pulse 100 99 99 Oximetry 12/17/19 12/17/19 12/17/19 03:16 03:30 03:42 Temperature 98.7 F Pulse Rate 86 81 Pulse Rate [ Anterior Bilateral Throughout] Respiratory 27 H 20 Rate Respiratory Rate [Anterior Bilateral Throughout] Blood Pressure 162/87 162/87 O2 Sat by Pulse 98 98 Oximetry 12/17/19 12/17/19 12/17/19 03:46 03:56 04:00 Temperature Pulse Rate 83 79 77 Pulse Rate [ Anterior Bilateral Throughout] Respiratory 24 17 Rate Respiratory Rate [Anterior Bilateral Throughout] Blood Pressure 162/87 162/87 162/87 O2 Sat by Pulse 99 99 100 Oximetry 12/17/19 12/17/19 12/17/19 04:16 04:30 04:46 Temperature Pulse Rate 79 85 76 Pulse Rate [ Anterior Bilateral Throughout] Respiratory 17 29 H 26 H Rate Respiratory Rate [Anterior Bilateral Throughout] Blood Pressure 162/87 162/87 162/87 O2 Sat by Pulse 100 99 100 Oximetry 12/17/19 12/17/19 12/17/19 05:00 05:16 05:30 Temperature Pulse Rate 83 71 79 Pulse Rate [ Anterior Bilateral Throughout] Respiratory 14 9 L 20 Rate Respiratory Rate [Anterior Bilateral Throughout] Blood Pressure 153/79 153/79 153/79 O2 Sat by Pulse 99 99 99 Oximetry 12/17/19 12/17/19 12/17/19 05:46 06:00 06:16 Temperature Pulse Rate 71 71 74 Pulse Rate [ Anterior Bilateral Throughout] Respiratory 23 24 21 Rate Respiratory Rate [Anterior Bilateral Throughout] Blood Pressure 153/79 148/80 148/80 O2 Sat by Pulse 99 99 98 Oximetry 12/17/19 12/17/19 12/17/19 06:30 06:46 07:00 Temperature Pulse Rate 74 72 86 Pulse Rate [ Anterior Bilateral Throughout] Respiratory 21 20 22 Rate Respiratory Rate [Anterior Bilateral Throughout] Blood Pressure 148/80 148/80 142/113 O2 Sat by Pulse 99 99 98 Oximetry 12/17/19 12/17/19 12/17/19 07:16 07:30 07:46 Temperature 97.9 F Pulse Rate 83 78 70 Pulse Rate [ Anterior Bilateral Throughout] Respiratory 20 24 22 Rate Respiratory Rate [Anterior Bilateral Throughout] Blood Pressure 142/113 146/82 146/82 O2 Sat by Pulse 99 99 98 Oximetry 12/17/19 12/17/19 12/17/19 08:00 08:16 08:30 Temperature Pulse Rate 76 68 76 Pulse Rate [ 79 Anterior Bilateral Throughout] Respiratory 17 21 27 H Rate Respiratory 18 Rate [Anterior Bilateral Throughout] Blood Pressure 157/84 157/84 157/84 O2 Sat by Pulse 98 99 98 Oximetry 12/17/19 12/17/19 12/17/19 08:46 09:00 09:16 Temperature Pulse Rate 72 82 70 Pulse Rate [ Anterior Bilateral Throughout] Respiratory 18 15 15 Rate Respiratory Rate [Anterior Bilateral Throughout] Blood Pressure 157/84 157/84 157/84 O2 Sat by Pulse 98 98 100 Oximetry 12/17/19 12/17/19 12/17/19 09:30 09:46 10:00 Temperature Pulse Rate 85 81 79 Pulse Rate [ Anterior Bilateral Throughout] Respiratory 26 H 26 H 27 H Rate Respiratory Rate [Anterior Bilateral Throughout] Blood Pressure 157/84 157/84 157/83 O2 Sat by Pulse 99 98 98 Oximetry 12/17/19 12/17/19 11:43 12:00 Temperature 97.6 F Pulse Rate 78 Pulse Rate [ Anterior Bilateral Throughout] Respiratory 32 H Rate Respiratory Rate [Anterior Bilateral Throughout] Blood Pressure 169/88 O2 Sat by Pulse 95 Oximetry - Labs CBC & Chem 7: 12/18/19 04:23 12/15/19 05:30 Labs: Abnormal lab results 12/16/19 12/17/19 12/17/19 Range/Units 17:52 04:40 05:18 ABG pO2 109.1 H (80.0-90.0) mm Hg ABG Base Excess -4.6 L (-2.0-3.0) mmol/L ABG Hemoglobin 10.9 L (14.0-18.0) gm/dl POC Glucose 136 H 140 H (70-105) 12/17/19 Range/Units 11:45 ABG pO2 (80.0-90.0) mm Hg ABG Base Excess (-2.0-3.0) mmol/L ABG Hemoglobin (14.0-18.0) gm/dl POC Glucose 116 H (70-105)
[2019-12-17] MEDS: hydrALAZINE 20 MG/1 ML INJ IV PRN ×2 (17:42→19:50)
[2019-12-17] MEDS: carvediloL 3.125 MG TAB PO SCH (21:09)
[2019-12-18] MEDS: hydrALAZINE 20 MG/1 ML INJ IV PRN ×2 (00:07→16:42)
[2019-12-18] MEDS: LINEZOLID 600 MG/300 ML BAG IV SCH (01:32)
[2019-12-18] MEDS: IPRATROPIUM/ALBUTEROL SULFATE 3 ML AMPUL.NEB IH SCH ×4 (03:08→20:02)
--- NOTE | 2019-12-18 04:39 | XRay Report ---
CHEST 1 VIEW INDICATION / CLINICAL INFORMATION: follow up respiratory failure. COMPARISON: 12/17/2019 FINDINGS: SUPPORT DEVICES: Stable, satisfactory device positioning. Interval removal of right IJ central venous line. HEART / MEDIASTINUM: No significant abnormality. LUNGS / PLEURA: Bilateral pulmonary opacities are stable in appearance. No new finding. No pneumothor ax. ADDITIONAL FINDINGS: No significant additional findings. IMPRESSION: 1. Stable appearance of the chest radiograph. Signer Name: Meaghan Hernandes MD Signed: 12/18/2019 4:35 AM Workstation Name: [id number]
[2019-12-18 04:49] LABS: ABG Base Excess -1.6 mmol/L (-2.0-3.0); ABG HCO3 22.5 mmol/L (20.0-26.0); ABG Methemoglobin 0.7 % (0.0-1.5); ABG Oxygen Saturation 97.3 % (95.0-99.0); ABG PCO2 35.4 mm Hg; ABG PH 7.421 pH Units (7.350-7.450); ABG PO2 89.7 mm Hg (80.0-90.0)
[2019-12-18 05:01] LABS: Basophils % (Auto) 0.2 % (0.0-1.8); Eosinophils # (Auto) 0.4 K/mm3 (0.0-0.4); Eosinophils % (Auto) 4.8 % (0.0-4.3); Hematocrit 32.8 % (35.5-45.6); Hemoglobin 10.8 gm/dl (11.8-15.2); Lymphocytes % (Auto) 13.6 % (13.4-35.0); Mean Corpuscular HGB Conc 33 % (32-34); Mean Corpuscular Volume 94 fl (84-94); Monocytes # (Auto) 0.6 K/mm3 (0.0-0.8); Monocytes % (Auto) 8.4 % (0.0-7.3); Platelet Count 103 K/mm3 (140-440); Red Blood Count 3.49 M/mm3 (3.65-5.03); Red Cell Distribution Width 17.9 % (13.2-15.2)
[2019-12-18] MEDS: HEPARIN 5,000 UNIT/1 ML VIAL SUB-Q SCH ×4 (05:11→22:21)
[2019-12-18] MEDS: LINEZOLID 600 MG TAB PO SCH ×2 (06:00→22:00)
[2019-12-18] MEDS: FOLIC ACID 1 MG TAB PO SCH (09:29)
[2019-12-18] MEDS: ASPIRIN 81 MG TAB CHEW PO SCH (09:29)
[2019-12-18] MEDS: LANSOPRAZOLE 30 MG SOLUTAB FEEDTUBE SCH (09:29)
[2019-12-18] MEDS: allopurinoL 300 MG TAB PO SCH (09:29)
[2019-12-18] MEDS: MULTIVITAMINS 5 ML ORAL LIQUID PO SCH (09:30)
[2019-12-18] MEDS: carvediloL 3.125 MG TAB PO SCH ×2 (09:30→22:22)
[2019-12-18] MEDS: SENNOSIDES ORAL LIQD 8.8 MG/5 ML ORAL LIQD FEEDTUBE SCH ×2 (09:31→22:21)
--- NOTE | 2019-12-18 11:35 | Progress Note ---
Assessment and Plan Severe Sepsis with Shock Pneumonia Acute hypoxic respiratory failure on MVS Chronic kidney disease Anemia Thrombocytopenia CHF (EF 45-50% on 10/2019) CVA with aphasia Dementia Oropharyngeal dysphagia s/p PEG - reduce set rate to 12/min - replace potassium (KCL 40 meq po X 3 doses - get Magnesium level in am - prn vasopressor support for target MAP > 65 mmHg - Continue with MVS, Lung protective strategies, monitor airway pressures - VAP bundle addressed (continue aspiration precautions, HOB>40) - Daily SAT's and assessment for readiness for SBT - Titrate sedation for RAAS 0 to -1 - VTE prophylaxis - Stress ulcer prophylaxis - continue enteric nutrition - continue glycemic control, with target blood glucose 140-180 mg/dL while critically ill. Avoid hypoglycemia - Wean supplemental oxygen for target O2 sat's > 90% - Adjust minute ventilation for better gas exchange - ABG and CXR prn - Follow cultures and adjust antibiotic therapy for SAMMIE and culture results - Avoid nephrotoxins, adjust all medications for GFR and CrCL - continue bronchodilators with pulmonary hygiene per RT - continue to avoid benzodiazepines to reduce the possibility of delirium - prn analgesia per CPOT score - Maintenance of sleep-wake cycle, avoid delirium - PT/OT/ROM exercises - continue mobility protocol and skin assessment per protocol for pressure ulcer prevention - Monitor hemodynamics closely - continue other care per attending / other consultants CONDITION: CRITICAL PROGNOSIS: GUARDED CODE STATUS: FULL CODE The high probability of a clinically significant, sudden or life-threatening deterioration of the [respiratory, cardiovascular] system(s) required my full and direct attention, intervention and personal management. The aggregate critical care time was [35] minutes without overlap. Time includes spent on; [x] Data Review and interpretation [x] Patient assessment and monitoring of vital signs [x] Documentation [x] Medication orders and management Subjective Date of service: 12/18/19 Principal diagnosis: Severe Sepsis with Shock; Pneumonia; Ac hypoxemic respfailure; CKD Interval history: Patient is seen today for: Severe Sepsis with Shock; Pneumonia; Acute hypoxic respiratory failure on MVS; Chronic kidney disease; Anemia; Thrombocytopenia; CHF (EF 45-50% on 10/2019); CVA with aphasia; Dementia; Oropharyngeal dysphagia s/p PEG Seen and examined at bedside; 24hour events reviewed; nursing and respiratory care staff consulted; no adverse overnight events reported to me; resting peacefully in bed; remains on MVS; responds appropriately; denies acute chest pains; No N/V/F/C Objective Vital Signs - 12hr 12/17/19 12/17/19 12/18/19 23:45 23:52 00:00 Temperature 94 F L Pulse Rate 114 H 112 H 110 H Pulse Rate [ Anterior Bilateral Throughout] Pulse Rate [ 125 H From Monitor] Respiratory 30 H 28 H Rate Respiratory Rate [Anterior Bilateral Throughout] Blood Pressure 158/85 158/82 166/90 O2 Sat by Pulse 98 98 98 Oximetry 12/18/19 12/18/19 12/18/19 00:07 00:16 00:20 Temperature 99.1 F Pulse Rate 98 H 115 H Pulse Rate [ Anterior Bilateral Throughout] Pulse Rate [ From Monitor] Respiratory 16 Rate Respiratory Rate [Anterior Bilateral Throughout] Blood Pressure 180/90 145/78 O2 Sat by Pulse 96 Oximetry 12/18/19 12/18/19 12/18/19 00:21 00:30 00:45 Temperature 99.1 F Pulse Rate 116 H 122 H Pulse Rate [ Anterior Bilateral Throughout] Pulse Rate [ From Monitor] Respiratory 26 H 35 H Rate Respiratory Rate [Anterior Bilateral Throughout] Blood Pressure 148/75 146/78 O2 Sat by Pulse 96 96 Oximetry 12/18/19 12/18/19 12/18/19 01:00 01:15 01:30 Temperature Pulse Rate 122 H 123 H 117 H Pulse Rate [ Anterior Bilateral Throughout] Pulse Rate [ From Monitor] Respiratory 35 H 35 H 32 H Rate Respiratory Rate [Anterior Bilateral Throughout] Blood Pressure 156/88 156/83 169/99 O2 Sat by Pulse 96 96 98 Oximetry 12/18/19 12/18/19 12/18/19 01:45 02:00 02:15 Temperature Pulse Rate 120 H 116 H 113 H Pulse Rate [ 97 H Anterior Bilateral Throughout] Pulse Rate [ From Monitor] Respiratory 35 H 33 H 32 H Rate Respiratory 30 H Rate [Anterior Bilateral Throughout] Blood Pressure 163/91 166/90 167/100 O2 Sat by Pulse 98 97 97 Oximetry 12/18/19 12/18/19 12/18/19 02:30 02:45 03:00 Temperature Pulse Rate 110 H 110 H 102 H Pulse Rate [ Anterior Bilateral Throughout] Pulse Rate [ From Monitor] Respiratory 29 H 31 H 24 Rate Respiratory Rate [Anterior Bilateral Throughout] Blood Pressure 156/91 168/93 167/100 O2 Sat by Pulse 97 98 98 Oximetry 12/18/19 12/18/19 12/18/19 03:05 03:16 03:30 Temperature Pulse Rate 108 H 109 H 106 H Pulse Rate [ Anterior Bilateral Throughout] Pulse Rate [ From Monitor] Respiratory 23 18 Rate Respiratory Rate [Anterior Bilateral Throughout] Blood Pressure 164/97 157/90 151/92 O2 Sat by Pulse 97 97 98 Oximetry 12/18/19 12/18/19 12/18/19 03:46 04:00 04:15 Temperature 98.3 F Pulse Rate 101 H 98 H 102 H Pulse Rate [ Anterior Bilateral Throughout] Pulse Rate [ 100 H From Monitor] Respiratory 17 17 17 Rate Respiratory Rate [Anterior Bilateral Throughout] Blood Pressure 157/95 158/92 156/91 O2 Sat by Pulse 97 97 96 Oximetry 12/18/19 12/18/19 12/18/19 04:30 04:45 05:00 Temperature Pulse Rate 101 H 107 H 109 H Pulse Rate [ Anterior Bilateral Throughout] Pulse Rate [ From Monitor] Respiratory 22 28 H 18 Rate Respiratory Rate [Anterior Bilateral Throughout] Blood Pressure 161/99 163/107 163/107 O2 Sat by Pulse 96 98 100 Oximetry 12/18/19 12/18/19 12/18/19 05:15 05:30 05:45 Temperature Pulse Rate 102 H 104 H 102 H Pulse Rate [ Anterior Bilateral Throughout] Pulse Rate [ From Monitor] Respiratory 31 H 30 H 31 H Rate Respiratory Rate [Anterior Bilateral Throughout] Blood Pressure 172/96 162/90 162/90 O2 Sat by Pulse 98 97 98 Oximetry 12/18/19 12/18/19 12/18/19 06:00 06:15 06:30 Temperature Pulse Rate 101 H 104 H 99 H Pulse Rate [ Anterior Bilateral Throughout] Pulse Rate [ From Monitor] Respiratory 28 H 31 H 28 H Rate Respiratory Rate [Anterior Bilateral Throughout] Blood Pressure 155/84 155/88 151/85 O2 Sat by Pulse 98 98 98 Oximetry 12/18/19 12/18/19 12/18/19 06:45 07:00 07:15 Temperature Pulse Rate 100 H 101 H 97 H Pulse Rate [ Anterior Bilateral Throughout] Pulse Rate [ From Monitor] Respiratory 27 H 30 H 29 H Rate Respiratory Rate [Anterior Bilateral Throughout] Blood Pressure 157/85 156/88 156/86 O2 Sat by Pulse 97 98 98 Oximetry 12/18/19 12/18/19 12/18/19 07:30 07:45 08:00 Temperature 97.9 F Pulse Rate 99 H 99 H 100 H Pulse Rate [ Anterior Bilateral Throughout] Pulse Rate [ 100 H From Monitor] Respiratory 26 H 29 H 27 H Rate Respiratory Rate [Anterior Bilateral Throughout] Blood Pressure 161/88 151/85 154/87 O2 Sat by Pulse 98 99 98 Oximetry 12/18/19 12/18/19 12/18/19 08:15 08:29 08:30 Temperature Pulse Rate 97 H 97 H Pulse Rate [ 96 H Anterior Bilateral Throughout] Pulse Rate [ From Monitor] Respiratory 27 H 28 H Rate Respiratory 24 Rate [Anterior Bilateral Throughout] Blood Pressure 153/91 151/91 O2 Sat by Pulse 98 99 Oximetry 12/18/19 12/18/19 12/18/19 08:45 09:00 09:15 Temperature Pulse Rate 104 H 98 H 96 H Pulse Rate [ Anterior Bilateral Throughout] Pulse Rate [ From Monitor] Respiratory 35 H 27 H 23 Rate Respiratory Rate [Anterior Bilateral Throughout] Blood Pressure 168/88 188/92 171/90 O2 Sat by Pulse 96 97 98 Oximetry 12/18/19 12/18/19 09:30 09:45 Temperature Pulse Rate 98 H 95 H Pulse Rate [ Anterior Bilateral Throughout] Pulse Rate [ From Monitor] Respiratory 29 H 27 H Rate Respiratory Rate [Anterior Bilateral Throughout] Blood Pressure 158/95 163/94 O2 Sat by Pulse 99 98 Oximetry Constitutional: no acute distress, other (elderly and chronically ill looking, atraumatic, normocephalic) Eyes: non-icteric, other (orally intubated ETT at 23cm, no patient-ventilator dys-synchrony) ENT: oropharynx moist, other (ETT 23 cm ELISEO) Neck: supple, no JVD Effort: mildly labored Ascultation: Bilateral: diminished breath sounds, rhonchi Percussion: Bilateral: not dull Cardiovascular: regular rate and rhythm, other (S1,S2, no murmurs) Gastrointestinal: normoactive bowel sounds, soft, non-tender, non-distended, other (PEG in place) Integumentary: normal Extremities: no cyanosis, no edema, pulses normal, no ischemia or petechiae Neurologic: non-focal exam (grossly), pupils equal and round, unable to assess Psychiatric: other (unable to assess) CBC and BMP: 12/18/19 04:23 12/19/19 05:51 ABG, PT/INR, D-dimer: ABG ABG pH 7.421 pH Units (7.350-7.450) 12/18/19 04:30 ABG pCO2 35.4 mm Hg 12/18/19 04:30 ABG pO2 89.7 mm Hg (80.0-90.0) 12/18/19 04:30 ABG O2 Saturation 97.3 % (95.0-99.0) 12/18/19 04:30 PT/INR, D-dimer PT 15.1 Sec. (12.2-14.9) H 12/12/19 05:00 INR 1.17 (0.87-1.13) H 12/12/19 05:00 Abnormal lab findings: Abnormal Labs 12/12/19 12/12/19 12/12/19 04:35 05:00 05:00 RBC 2.39 L Hgb 7.7 L Hct 23.1 L MCV 97 H RDW 18.8 H Plt Count Lymph % (Auto) 9.9 L [place] % (Auto) Eos % (Auto) Lymph # 0.5 L Seg Neutrophils % 86.5 H Seg Neutrophils # PT INR ABG pH ABG pO2 ABG HCO3 ABG O2 Saturation ABG Base Excess ABG Hemoglobin Oxyhemoglobin Chloride Carbon Dioxide 19 L BUN 51 H Creatinine 1.9 H Glucose 117 H POC Glucose 129 H Lactic Acid Calcium AST 46 H ALT 72 H Troponin T 0.080 H Albumin 2.2 L LDL Cholesterol Direct 38 L Vancomycin Trough Crossmatch 12/12/19 12/12/19 12/12/19 05:00 05:00 05:00 RBC Hgb Hct MCV RDW Plt Count Lymph % (Auto) [place] % (Auto) Eos % (Auto) Lymph # Seg Neutrophils % Seg Neutrophils # PT 15.1 H INR 1.17 H ABG pH 7.320 L ABG pO2 95.6 H ABG HCO3 18.2 L ABG O2 Saturation 99.5 H ABG Base Excess -7.2 L ABG Hemoglobin 7.3 L Oxyhemoglobin 94.9 L Chloride Carbon Dioxide BUN Creatinine Glucose POC Glucose Lactic Acid 7.90 H* Calcium AST ALT Troponin T Albumin LDL Cholesterol Direct Vancomycin Trough Crossmatch 12/12/19 12/12/19 12/12/19 05:00 07:04 08:10 RBC Hgb Hct MCV RDW Plt Count Lymph % (Auto) [place] % (Auto) Eos % (Auto) Lymph # Seg Neutrophils % Seg Neutrophils # PT INR ABG pH ABG pO2 ABG HCO3 ABG O2 Saturation ABG Base Excess ABG Hemoglobin Oxyhemoglobin Chloride Carbon Dioxide BUN Creatinine Glucose POC Glucose Lactic Acid 7.30 H* 6.40 H* Calcium AST ALT Troponin T Albumin LDL Cholesterol Direct Vancomycin Trough Crossmatch See Detail 12/12/19 12/12/19 12/12/19 15:01 18:48 Unknown RBC Hgb Hct MCV RDW Plt Count Lymph % (Auto) [place] % (Auto) Eos % (Auto) Lymph # Seg Neutrophils % Seg Neutrophils # PT INR ABG pH ABG pO2 ABG HCO3 ABG O2 Saturation ABG Base Excess ABG Hemoglobin Oxyhemoglobin Chloride Carbon Dioxide BUN Creatinine Glucose POC Glucose 62 L Lactic Acid 2.90 H* 4.30 H* Calcium AST ALT Troponin T Albumin LDL Cholesterol Direct Vancomycin Trough Crossmatch 12/13/19 12/13/19 12/13/19 04:56 04:56 05:40 RBC 2.24 L Hgb 7.1 L Hct 21.6 L MCV 96 H RDW 19.9 H Plt Count 135 L Lymph % (Auto) 11.6 L [place] % (Auto) Eos % (Auto) Lymph # 1.1 L Seg Neutrophils % 79.2 H Seg Neutrophils # 7.8 H PT INR ABG pH ABG pO2 ABG HCO3 17.3 L ABG O2 Saturation ABG Base Excess -7.2 L ABG Hemoglobin 7.8 L Oxyhemoglobin Chloride 111.8 H Carbon Dioxide 16 L BUN 39 H Creatinine 1.6 H Glucose 101 H POC Glucose Lactic Acid Calcium AST ALT Troponin T Albumin LDL Cholesterol Direct Vancomycin Trough Crossmatch 12/13/19 12/13/19 12/14/19 18:05 23:24 04:22 RBC Hgb Hct MCV RDW Plt Count Lymph % (Auto) [place] % (Auto) Eos % (Auto) Lymph # Seg Neutrophils % Seg Neutrophils # PT INR ABG pH ABG pO2 156.5 H ABG HCO3 17.3 L ABG O2 Saturation ABG Base Excess -7.6 L ABG Hemoglobin 5.5 L Oxyhemoglobin Chloride Carbon Dioxide BUN Creatinine Glucose POC Glucose 165 H 110 H Lactic Acid Calcium AST ALT Troponin T Albumin LDL Cholesterol Direct Vancomycin Trough Crossmatch 12/14/19 12/14/19 12/14/19 06:18 06:45 06:45 RBC 1.98 L Hgb 6.3 L Hct 19.4 L* MCV 98 H RDW 20.3 H Plt Count 103 L Lymph % (Auto) 9.7 L [place] % (Auto) Eos % (Auto) Lymph # 0.9 L Seg Neutrophils % 81.4 H Seg Neutrophils # 7.8 H PT INR ABG pH ABG pO2 ABG HCO3 ABG O2 Saturation ABG Base Excess ABG Hemoglobin Oxyhemoglobin Chloride 115.3 H Carbon Dioxide 17 L BUN 38 H Creatinine 1.7 H Glucose 117 H POC Glucose 138 H Lactic Acid Calcium AST ALT Troponin T Albumin LDL Cholesterol Direct Vancomycin Trough Crossmatch 12/14/19 12/14/19 12/14/19 12:54 17:35 23:35 RBC Hgb Hct MCV RDW Plt Count Lymph % (Auto) [place] % (Auto) Eos % (Auto) Lymph # Seg Neutrophils % Seg Neutrophils # PT INR ABG pH ABG pO2 ABG HCO3 ABG O2 Saturation ABG Base Excess ABG Hemoglobin Oxyhemoglobin Chloride Carbon Dioxide BUN Creatinine Glucose POC Glucose 127 H 163 H 116 H Lactic Acid Calcium AST ALT Troponin T Albumin LDL Cholesterol Direct Vancomycin Trough Crossmatch 12/15/19 12/15/19 12/15/19 04:10 05:30 05:30 RBC 2.97 L Hgb 9.4 L D Hct 28.3 L D MCV 95 H RDW 17.8 H Plt Count 101 L Lymph % (Auto) 5.2 L [place] % (Auto) Eos % (Auto) Lymph # 0.5 L Seg Neutrophils % 87.5 H Seg Neutrophils # 8.2 H PT INR ABG pH ABG pO2 71.3 L ABG HCO3 16.5 L ABG O2 Saturation ABG Base Excess -7.9 L ABG Hemoglobin 10.9 L Oxyhemoglobin 93.4 L Chloride Carbon Dioxide BUN Creatinine Glucose POC Glucose Lactic Acid Calcium AST ALT Troponin T Albumin LDL Cholesterol Direct Vancomycin Trough 23.6 H Crossmatch 12/15/19 12/15/19 12/15/19 05:30 12:35 17:24 RBC Hgb Hct MCV RDW Plt Count Lymph % (Auto) [place] % (Auto) Eos % (Auto) Lymph # Seg Neutrophils % Seg Neutrophils # PT INR ABG pH ABG pO2 ABG HCO3 ABG O2 Saturation ABG Base Excess ABG Hemoglobin Oxyhemoglobin Chloride 117.0 H Carbon Dioxide 14 L BUN 35 H Creatinine Glucose POC Glucose 120 H 155 H Lactic Acid Calcium 10.3 H AST ALT Troponin T Albumin LDL Cholesterol Direct Vancomycin Trough Crossmatch 12/16/19 12/16/19 12/16/19 04:30 05:38 06:30 RBC 3.04 L Hgb 9.6 L Hct 29.1 L MCV 96 H RDW 17.5 H Plt Count 105 L Lymph % (Auto) [place] % (Auto) Eos % (Auto) Lymph # Seg Neutrophils % Seg Neutrophils # PT INR ABG pH ABG pO2 146.9 H ABG HCO3 18.0 L ABG O2 Saturation ABG Base Excess -6.5 L ABG Hemoglobin 8.9 L Oxyhemoglobin Chloride Carbon Dioxide BUN Creatinine Glucose POC Glucose 128 H Lactic Acid Calcium AST ALT Troponin T Albumin LDL Cholesterol Direct Vancomycin Trough Crossmatch 12/16/19 12/16/19 12/17/19 12:10 17:52 04:40 RBC Hgb Hct MCV RDW Plt Count Lymph % (Auto) [place] % (Auto) Eos % (Auto) Lymph # Seg Neutrophils % Seg Neutrophils # PT INR ABG pH ABG pO2 109.1 H ABG HCO3 ABG O2 Saturation ABG Base Excess -4.6 L ABG Hemoglobin 10.9 L Oxyhemoglobin Chloride Carbon Dioxide BUN Creatinine Glucose POC Glucose 124 H 136 H Lactic Acid Calcium AST ALT Troponin T Albumin LDL Cholesterol Direct Vancomycin Trough Crossmatch 12/17/19 12/17/19 12/17/19 05:18 11:45 17:27 RBC Hgb Hct MCV RDW Plt Count Lymph % (Auto) [place] % (Auto) Eos % (Auto) Lymph # Seg Neutrophils % Seg Neutrophils # PT INR ABG pH ABG pO2 ABG HCO3 ABG O2 Saturation ABG Base Excess ABG Hemoglobin Oxyhemoglobin Chloride Carbon Dioxide BUN Creatinine Glucose POC Glucose 140 H 116 H 110 H Lactic Acid Calcium AST ALT Troponin T Albumin LDL Cholesterol Direct Vancomycin Trough Crossmatch 12/18/19 12/18/19 12/18/19 00:48 04:23 04:30 RBC 3.49 L Hgb 10.8 L Hct 32.8 L MCV RDW 17.9 H Plt Count 103 L Lymph % (Auto) [place] % (Auto) 8.4 H Eos % (Auto) 4.8 H Lymph # 1.0 L Seg Neutrophils % 73.0 H Seg Neutrophils # PT INR ABG pH ABG pO2 ABG HCO3 ABG O2 Saturation ABG Base Excess ABG Hemoglobin 10.0 L Oxyhemoglobin Chloride Carbon Dioxide BUN Creatinine Glucose POC Glucose 128 H Lactic Acid Calcium AST ALT Troponin T Albumin LDL Cholesterol Direct Vancomycin Trough Crossmatch 12/18/19 06:37 RBC Hgb Hct MCV RDW Plt Count Lymph % (Auto) [place] % (Auto) Eos % (Auto) Lymph # Seg Neutrophils % Seg Neutrophils # PT INR ABG pH ABG pO2 ABG HCO3 ABG O2 Saturation ABG Base Excess ABG Hemoglobin Oxyhemoglobin Chloride Carbon Dioxide BUN Creatinine Glucose POC Glucose 132 H Lactic Acid Calcium AST ALT Troponin T Albumin LDL Cholesterol Direct Vancomycin Trough Crossmatch Chest x-ray: image reviewed (ETT in good position)
--- NOTE | 2019-12-18 12:35 | Progress Note ---
Assessment and Plan Cultures: 12/12/2019 sputum culture: MRSA 12/12/2019 blood culture: No growth A/P: 79-year-old male with hypertension, dementia, CKD, CVA with a aphasia and status post PEG tube placement, resident of long term, multiple recent hospitalizations, most recently in November 2019 with bilateral pneumonia, acute anemia requiring antibiotics as well as blood transfusion. He was sent to the emergency room from the long term on 12/12/2019 with worsening mental status, respiratory distress and hypoxia: #Septic shock, likely secondary to bilateral pneumonia: Sputum culture growing MRSA, vancomycin SAMMIE of 2.0. Patient with multiple recent hospitalizations and long term resident and multiple exposures to vancomycin and JULIA on admission. UA not suggestive of infection. #Acute respiratory failure: Secondary to above. On mechanical ventilation. #JULIA on CKD: renally dose abx. #Acute anemia: Receiving blood transfusions. #Mild transaminitis: Likely secondary to septic shock. #Mild thrombocytopenia: Could be related to sepsis. Monitor. Recs: Switched linezolid to PO 600 mg q12 hrs, today is overall day 6 of 10 day course Low platelets have remained stable Chana Mandujano MD, FACP [facility] ([facility] C: [phone] O: [phone] F: [phone] Subjective Date of service: 12/18/19 Principal diagnosis: anemia Interval history: Patient remains afebrile. No hemodynamic instability. Intubated, on the vent. No new issues per RN. Objective - Exam Narrative Exam: Physical Exam: Constitutional: opening eyes, intubated Head, Ears, Nose: Normocephalic, atraumatic. External ears, nose normal Eyes: Conjunctivae/corneas clear. No icterus. No ptosis. Neck: Intubated Oral: Intubated Cardiovascular: S1, S2 normal Respiratory: clear b/l GI: Soft, non-tender; bowel sounds +, PEG tube present Musculoskeletal: No pedal edema, no cyanosis. Skin: No rash or abscess Hem/Lymphatic: No palpable cervical or supraclavicular nodes. No lymphangitis Psych: no agitation Neurological: opening eyes, but not following commands, intubated, on vent - Constitutional Vitals: Vital Signs Temp Pulse Resp BP Pulse Ox 97.9 F 95 H 27 H 163/94 98 12/18/19 08:00 12/18/19 09:45 12/18/19 09:45 12/18/19 09:45 12/18/19 09:45 Temperature -Last 24 Hours Temperature 97.9 F Temperature 98.3 F Temperature 99.1 F Temperature 99.1 F Temperature 94 F Temperature 98.4 F Temperature 97.9 F - Labs CBC & Chem 7: 12/18/19 04:23 12/15/19 05:30 Labs: Abnormal lab results 12/17/19 12/18/19 12/18/19 Range/Units 17:27 00:48 04:23 RBC 3.49 L (3.65-5.03) M/mm3 Hgb 10.8 L (11.8-15.2) gm/dl Hct 32.8 L (35.5-45.6) % RDW 17.9 H (13.2-15.2) % Plt Count 103 L (140-440) K/mm3 [place] % (Auto) 8.4 H (0.0-7.3) % Eos % (Auto) 4.8 H (0.0-4.3) % Lymph # 1.0 L (1.2-5.4) K/mm3 Seg Neutrophils % 73.0 H (40.0-70.0) % ABG Hemoglobin (14.0-18.0) gm/dl POC Glucose 110 H 128 H (70-105) 12/18/19 12/18/19 Range/Units 04:30 06:37 RBC (3.65-5.03) M/mm3 Hgb (11.8-15.2) gm/dl Hct (35.5-45.6) % RDW (13.2-15.2) % Plt Count (140-440) K/mm3 [place] % (Auto) (0.0-7.3) % Eos % (Auto) (0.0-4.3) % Lymph # (1.2-5.4) K/mm3 Seg Neutrophils % (40.0-70.0) % ABG Hemoglobin 10.0 L (14.0-18.0) gm/dl POC Glucose 132 H (70-105) - Imaging and cardiology Chest x-ray: report reviewed, image reviewed (diffuse bilateral airspace opacities)
--- NOTE | 2019-12-18 13:50 | Progress Note ---
Assessment and Plan Sepsis with b/l PNA (HCAP) also cannot r/o aspiration - Sputum culture grew MRSA, Had recurrent PNA recently related to aspiration - Sepsis with PNA, tachycardia, tachypnea, and lactic acidosis -Patient is on IV linezolid, ID is following the patient, today is overall day 6 of 10 day course -Blood cultures are negative so far Acute hypoxic respiratory failure - due to b/l PNA - intubated, consulted pulmonary - placed on scheduled nebs, unable to wean off - cont to monitor Septic shock, resolved - s/p levophed, also cont iv fluid dementia, h/o - now intubated, family wants full code Dash chronic kidney disease, due to sepsis - cont to monitor, iv fluid - resolved thrombocytopenia with anemia -Hemoglobin dropped below 7 and s/p 2 units of PRBC transfused -GI consulted - no plan for endoscopy dyslipidemia, cont statin NSTEMI type 2 -chronically elevated, monitor for now - EF 45-50% on 10/27 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 off heparin for severe anemia and thrombocytopenia Poor prognosis. offered hospice to daughter due to underlying dementia, recurrent boots of PNA recently related aspiration and now with MRSA. Daughter taking time to decide. The high probability of a clinically significant, sudden or life threatening deterioration of the [cardiovascular, respiratory] system(s) required my full and direct attention, intervention and personal management. The aggregate critical care time was [32] minutes. This time is in addition to time spent performing reported procedures but includes the following: [x] Data Review and interpretation [x] Patient assessment and monitoring of vital signs [x] Documentation [x] Medication orders and management Brief History: 79-year-old male with hypertension, dementia, CKD, 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 He was sent to the emergency room from the [facility] on 12/12/2019 with worsening mental status, respiratory distress and hypoxia: Now being treated for b/l PNA, respiratory f ailure. Subjective Date of service: 12/18/19 Principal diagnosis: anemia Interval history: Patient was seen and evaluated this morning, patient is intubated and on mechanical ventilation. discussed with RN and updated daughter by phone Objective - Exam Narrative Exam: General appearance: Present: other (intubated and sedated) - EENT Eyes: Absent: scleral icterus, conjunctival injection ENT: other (ET tube in place) - Neck Neck: Present: supple - Respiratory Respiratory: bilateral: rales (on mechanical ventilation) - Cardiovascular Heart Sounds: Present: S1 & S2. Absent: rub, click - Extremities Extremities: pulses symmetrical, No edema Peripheral Pulses: within normal limits - Abdominal General gastrointestinal: Present: soft, non-tender, non-distended, normal bowel sounds, other (PEG tube in place) - Integumentary Integumentary: Present: clear, warm, dry - Musculoskeletal Musculoskeletal: other (no joint swelling or pain ) - Psychiatric Psychiatric: other (unable to assess) - Neurologic Neurologic: other (unable to assess) - Constitutional Vitals: Vital Signs - 12hr 12/18/19 12/18/19 12/18/19 02:00 02:15 02:30 Temperature Pulse Rate 116 H 113 H 110 H Pulse Rate [ 97 H Anterior Bilateral Throughout] Pulse Rate [ From Monitor] Respiratory 33 H 32 H 29 H Rate Respiratory 30 H Rate [Anterior Bilateral Throughout] Blood Pressure 166/90 167/100 156/91 O2 Sat by Pulse 97 97 97 Oximetry 12/18/19 12/18/19 12/18/19 02:45 03:00 03:05 Temperature Pulse Rate 110 H 102 H 108 H Pulse Rate [ Anterior Bilateral Throughout] Pulse Rate [ From Monitor] Respiratory 31 H 24 Rate Respiratory Rate [Anterior Bilateral Throughout] Blood Pressure 168/93 167/100 164/97 O2 Sat by Pulse 98 98 97 Oximetry 12/18/19 12/18/19 12/18/19 03:16 03:30 03:46 Temperature Pulse Rate 109 H 106 H 101 H Pulse Rate [ Anterior Bilateral Throughout] Pulse Rate [ From Monitor] Respiratory 23 18 17 Rate Respiratory Rate [Anterior Bilateral Throughout] Blood Pressure 157/90 151/92 157/95 O2 Sat by Pulse 97 98 97 Oximetry 12/18/19 12/18/19 12/18/19 04:00 04:15 04:30 Temperature 98.3 F Pulse Rate 98 H 102 H 101 H Pulse Rate [ Anterior Bilateral Throughout] Pulse Rate [ 100 H From Monitor] Respiratory 17 17 22 Rate Respiratory Rate [Anterior Bilateral Throughout] Blood Pressure 158/92 156/91 161/99 O2 Sat by Pulse 97 96 96 Oximetry 12/18/19 12/18/19 12/18/19 04:45 05:00 05:15 Temperature Pulse Rate 107 H 109 H 102 H Pulse Rate [ Anterior Bilateral Throughout] Pulse Rate [ From Monitor] Respiratory 28 H 18 31 H Rate Respiratory Rate [Anterior Bilateral Throughout] Blood Pressure 163/107 163/107 172/96 O2 Sat by Pulse 98 100 98 Oximetry 12/18/19 12/18/19 12/18/19 05:30 05:45 06:00 Temperature Pulse Rate 104 H 102 H 101 H Pulse Rate [ Anterior Bilateral Throughout] Pulse Rate [ From Monitor] Respiratory 30 H 31 H 28 H Rate Respiratory Rate [Anterior Bilateral Throughout] Blood Pressure 162/90 162/90 155/84 O2 Sat by Pulse 97 98 98 Oximetry 12/18/19 12/18/19 12/18/19 06:15 06:30 06:45 Temperature Pulse Rate 104 H 99 H 100 H Pulse Rate [ Anterior Bilateral Throughout] Pulse Rate [ From Monitor] Respiratory 31 H 28 H 27 H Rate Respiratory Rate [Anterior Bilateral Throughout] Blood Pressure 155/88 151/85 157/85 O2 Sat by Pulse 98 98 97 Oximetry 12/18/19 12/18/19 12/18/19 07:00 07:15 07:30 Temperature Pulse Rate 101 H 97 H 99 H Pulse Rate [ Anterior Bilateral Throughout] Pulse Rate [ From Monitor] Respiratory 30 H 29 H 26 H Rate Respiratory Rate [Anterior Bilateral Throughout] Blood Pressure 156/88 156/86 161/88 O2 Sat by Pulse 98 98 98 Oximetry 12/18/19 12/18/19 12/18/19 07:45 08:00 08:15 Temperature 97.9 F Pulse Rate 99 H 100 H 97 H Pulse Rate [ Anterior Bilateral Throughout] Pulse Rate [ 100 H From Monitor] Respiratory 29 H 27 H 27 H Rate Respiratory Rate [Anterior Bilateral Throughout] Blood Pressure 151/85 154/87 153/91 O2 Sat by Pulse 99 98 98 Oximetry 12/18/19 12/18/19 12/18/19 08:29 08:30 08:45 Temperature Pulse Rate 97 H 104 H Pulse Rate [ 96 H Anterior Bilateral Throughout] Pulse Rate [ From Monitor] Respiratory 28 H 35 H Rate Respiratory 24 Rate [Anterior Bilateral Throughout] Blood Pressure 151/91 168/88 O2 Sat by Pulse 99 96 Oximetry 12/18/19 12/18/19 12/18/19 09:00 09:15 09:30 Temperature Pulse Rate 98 H 96 H 98 H Pulse Rate [ Anterior Bilateral Throughout] Pulse Rate [ From Monitor] Respiratory 27 H 23 29 H Rate Respiratory Rate [Anterior Bilateral Throughout] Blood Pressure 188/92 171/90 158/95 O2 Sat by Pulse 97 98 99 Oximetry 12/18/19 12/18/19 12/18/19 09:45 10:00 10:15 Temperature Pulse Rate 95 H 96 H 100 H Pulse Rate [ Anterior Bilateral Throughout] Pulse Rate [ 96 H From Monitor] Respiratory 27 H 30 H 28 H Rate Respiratory Rate [Anterior Bilateral Throughout] Blood Pressure 163/94 167/89 148/98 O2 Sat by Pulse 98 99 98 Oximetry 12/18/19 12/18/19 12/18/19 10:30 10:45 11:00 Temperature Pulse Rate 94 H 92 H 90 Pulse Rate [ Anterior Bilateral Throughout] Pulse Rate [ From Monitor] Respiratory 25 H 25 H 26 H Rate Respiratory Rate [Anterior Bilateral Throughout] Blood Pressure 158/97 169/88 178/85 O2 Sat by Pulse 99 98 99 Oximetry 12/18/19 12/18/19 12/18/19 11:15 11:30 11:45 Temperature Pulse Rate 91 H 91 H 91 H Pulse Rate [ Anterior Bilateral Throughout] Pulse Rate [ From Monitor] Respiratory 27 H 27 H 29 H Rate Respiratory Rate [Anterior Bilateral Throughout] Blood Pressure 158/91 162/95 161/90 O2 Sat by Pulse 99 99 98 Oximetry 12/18/19 12/18/19 12/18/19 12:00 12:15 12:30 Temperature 97.6 F Pulse Rate 91 H 90 87 Pulse Rate [ Anterior Bilateral Throughout] Pulse Rate [ 91 H From Monitor] Respiratory 27 H 27 H 24 Rate Respiratory Rate [Anterior Bilateral Throughout] Blood Pressure 164/90 149/89 151/88 O2 Sat by Pulse 99 100 99 Oximetry - Labs CBC & Chem 7: 12/18/19 04:23 12/15/19 05:30 Labs: Abnormal lab results 12/17/19 12/18/19 12/18/19 Range/Units 17:27 00:48 04:23 RBC 3.49 L (3.65-5.03) M/mm3 Hgb 10.8 L (11.8-15.2) gm/dl Hct 32.8 L (35.5-45.6) % RDW 17.9 H (13.2-15.2) % Plt Count 103 L (140-440) K/mm3 Patrick % (Auto) 8.4 H (0.0-7.3) % Eos % (Auto) 4.8 H (0.0-4.3) % Lymph # 1.0 L (1.2-5.4) K/mm3 Seg Neutrophils % 73.0 H (40.0-70.0) % ABG Hemoglobin (14.0-18.0) gm/dl POC Glucose 110 H 128 H (70-105) 12/18/19 12/18/19 12/18/19 Range/Units 04:30 06:37 12:30 RBC (3.65-5.03) M/mm3 Hgb (11.8-15.2) gm/dl Hct (35.5-45.6) % RDW (13.2-15.2) % Plt Count (140-440) K/mm3 Patrick % (Auto) (0.0-7.3) % Eos % (Auto) (0.0-4.3) % Lymph # (1.2-5.4) K/mm3 Seg Neutrophils % (40.0-70.0) % ABG Hemoglobin 10.0 L (14.0-18.0) gm/dl POC Glucose 132 H 127 H (70-105)
[2019-12-19] MEDS: IPRATROPIUM/ALBUTEROL SULFATE 3 ML AMPUL.NEB IH SCH ×4 (01:02→21:07)
[2019-12-19] MEDS: HEPARIN 5,000 UNIT/1 ML VIAL SUB-Q SCH ×3 (05:51→22:31)
[2019-12-19 06:33] LABS: BUN/Creatinine Ratio 28; Blood Urea Nitrogen 37 mg/dL (9-20); Calcium 11.8 mg/dL (8.4-10.2); Hemolysis Index 1
--- NOTE | 2019-12-19 09:08 | XRay Report ---
CHEST - 1 VIEW 0819 hours INDICATION: follow up respiratory failure COMPARISON: Yesterday FINDINGS: Support devices: Stable and adequate positioning of the endotracheal tube. Heart: Stable cardiomediastinal silhouette. Lungs/pleura: Given differences in the level of inspiration, no significant change is appreciated in the bilateral pulmonary opacities. No large pleural effusion or pneumothorax has developed. Additional findings: None. IMPRESSION: Unchanged exam. Signer Name: Jonah Keith Jr, MD Signed: 12/19/2019 9:03 AM Workstation Name: [id number]
[2019-12-19] MEDS: MULTIVITAMINS 5 ML ORAL LIQUID PO SCH (10:05)
[2019-12-19] MEDS: LINEZOLID 600 MG TAB PO SCH ×2 (10:05→22:32)
[2019-12-19] MEDS: carvediloL 3.125 MG TAB PO SCH (10:06)
[2019-12-19] MEDS: allopurinoL 300 MG TAB PO SCH (10:06)
[2019-12-19] MEDS: ASPIRIN 81 MG TAB CHEW PO SCH (10:06)
[2019-12-19] MEDS: FOLIC ACID 1 MG TAB PO SCH (10:06)
[2019-12-19] MEDS: LANSOPRAZOLE 30 MG SOLUTAB FEEDTUBE SCH (10:06)
[2019-12-19] MEDS: SENNOSIDES ORAL LIQD 8.8 MG/5 ML ORAL LIQD FEEDTUBE SCH ×2 (10:08→22:30)
--- NOTE | 2019-12-19 11:31 | Progress Note ---
Assessment and Plan Severe Sepsis with Shock Pneumonia Acute hypoxic respiratory failure on MVS Chronic kidney disease Anemia Thrombocytopenia CHF (EF 45-50% on 10/2019) CVA with aphasia Dementia Oropharyngeal dysphagia s/p PEG - Percocet pren for moderate to severe pain - increased Coreg to 6.25 mg bid re: HTN - get ABG on SBT and address - Kcl 40 meq p.o. X 1 dose for hypokalemia - continue to rest on set rate of 12/min - follow Magnesium level - prn vasopressor support for target MAP > 65 mmHg - Continue with MVS, Lung protective strategies, monitor airway pressures - VAP bundle addressed (continue aspiration precautions, HOB>40) - Daily SAT's and assessment for readiness for SBT - Titrate sedation for RAAS 0 to -1 - VTE prophylaxis - Stress ulcer prophylaxis - continue enteric nutrition - continue glycemic control, with target blood glucose 140-180 mg/dL while critically ill. Avoid hypoglycemia - Wean supplemental oxygen for target O2 sat's > 90% - Adjust minute ventilation for better gas exchange - ABG and CXR prn - Follow cultures and adjust antibiotic therapy for SAMMIE and culture results - Avoid nephrotoxins, adjust all medications for GFR and CrCL - continue bronchodilators with pulmonary hygiene per RT - continue to avoid benzodiazepines to reduce the possibility of delirium - prn analgesia per CPOT score - Maintenance of sleep-wake cycle, avoid delirium - PT/OT/ROM exercises - continue mobility protocol and skin assessment per protocol for pressure ulcer prevention - Monitor hemodynamics closely - continue other care per attending / other consultants .... care plan discussed at length with daughter in room. CONDITION: CRITICAL PROGNOSIS: GUARDED CODE STATUS: FULL CODE The high probability of a clinically significant, sudden or life-threatening deterioration of the [respiratory, cardiovascular] system(s) required my full and direct attention, intervention and personal management. The aggregate critical care time was [32] minutes without overlap. Time includes spent on; [x] Data Review and interpretation [x] Patient assessment and monitoring of vital signs [x] Documentation [x] Medication orders and management Subjective Date of service: 12/19/19 Principal diagnosis: Severe Sepsis with Shock; Pneumonia; Ac hypoxemic respfailure; CKD Interval history: Patient is seen today for: Severe Sepsis with Shock; Pneumonia; Acute hypoxic respiratory failure on MVS; Chronic kidney disease; Anemia; Thrombocytopenia; CHF (EF 45-50% on 10/2019); CVA with aphasia; Dementia; Oropharyngeal dysphagia s/p PEG Seen and examined at bedside; 24hour events reviewed; nursing and respiratory care staff consulted; no adverse overnight events reported to me; resting peacefully in bed; his daughter is visiting; on PSV trial now but Psupp at 14; no N/V/F/C Objective Vital Signs - 12hr 12/18/19 12/18/19 12/18/19 23:31 23:33 23:45 Temperature Pulse Rate 101 H 102 H 101 H Pulse Rate [ Anterior Bilateral Throughout] Pulse Rate [ From Monitor] Pulse Rate [ Left Dorsalis Pedis] Respiratory 32 H 32 H 30 H Rate Respiratory Rate [Anterior Bilateral Throughout] Blood Pressure 179/102 179/102 179/102 O2 Sat by Pulse 97 96 97 Oximetry 12/18/19 12/19/19 12/19/19 23:46 00:00 00:07 Temperature Pulse Rate 101 H 101 H 102 H Pulse Rate [ Anterior Bilateral Throughout] Pulse Rate [ 103 H From Monitor] Pulse Rate [ 103 H Left Dorsalis Pedis] Respiratory 31 H 31 H 32 H Rate Respiratory Rate [Anterior Bilateral Throughout] Blood Pressure 179/102 179/98 179/98 O2 Sat by Pulse 97 98 97 Oximetry 12/19/19 12/19/19 12/19/19 00:15 00:31 00:45 Temperature Pulse Rate 100 H 101 H 106 H Pulse Rate [ Anterior Bilateral Throughout] Pulse Rate [ From Monitor] Pulse Rate [ Left Dorsalis Pedis] Respiratory 30 H 31 H 33 H Rate Respiratory Rate [Anterior Bilateral Throughout] Blood Pressure 179/102 179/102 179/98 O2 Sat by Pulse 97 97 98 Oximetry 12/19/19 12/19/19 12/19/19 00:55 01:00 01:05 Temperature Pulse Rate 103 H 104 H Pulse Rate [ 107 H Anterior Bilateral Throughout] Pulse Rate [ From Monitor] Pulse Rate [ Left Dorsalis Pedis] Respiratory 28 H Rate Respiratory 19 Rate [Anterior Bilateral Throughout] Blood Pressure 179/98 182/95 O2 Sat by Pulse 97 97 Oximetry 12/19/19 12/19/19 12/19/19 01:15 01:31 01:45 Temperature Pulse Rate 105 H 105 H 107 H Pulse Rate [ Anterior Bilateral Throughout] Pulse Rate [ From Monitor] Pulse Rate [ Left Dorsalis Pedis] Respiratory 26 H 30 H 28 H Rate Respiratory Rate [Anterior Bilateral Throughout] Blood Pressure 182/95 182/95 182/95 O2 Sat by Pulse 97 97 97 Oximetry 12/19/19 12/19/19 12/19/19 02:00 02:15 02:31 Temperature Pulse Rate 102 H 101 H 103 H Pulse Rate [ Anterior Bilateral Throughout] Pulse Rate [ From Monitor] Pulse Rate [ Left Dorsalis Pedis] Respiratory 24 28 H 24 Rate Respiratory Rate [Anterior Bilateral Throughout] Blood Pressure 182/94 182/94 182/94 O2 Sat by Pulse 97 97 97 Oximetry 12/19/19 12/19/19 12/19/19 02:45 03:00 03:15 Temperature Pulse Rate 104 H 103 H 102 H Pulse Rate [ Anterior Bilateral Throughout] Pulse Rate [ From Monitor] Pulse Rate [ Left Dorsalis Pedis] Respiratory 31 H 30 H 29 H Rate Respiratory Rate [Anterior Bilateral Throughout] Blood Pressure 182/94 163/89 163/89 O2 Sat by Pulse 97 96 97 Oximetry 12/19/19 12/19/19 12/19/19 03:29 03:31 03:45 Temperature 98.7 F Pulse Rate 108 H 102 H Pulse Rate [ Anterior Bilateral Throughout] Pulse Rate [ From Monitor] Pulse Rate [ Left Dorsalis Pedis] Respiratory 23 31 H Rate Respiratory Rate [Anterior Bilateral Throughout] Blood Pressure 163/89 163/89 O2 Sat by Pulse 99 99 Oximetry 12/19/19 12/19/19 12/19/19 04:00 04:15 04:31 Temperature Pulse Rate 103 H 99 H 99 H Pulse Rate [ Anterior Bilateral Throughout] Pulse Rate [ 93 H From Monitor] Pulse Rate [ 93 H Left Dorsalis Pedis] Respiratory 28 H 29 H 27 H Rate Respiratory Rate [Anterior Bilateral Throughout] Blood Pressure 170/92 170/92 170/92 O2 Sat by Pulse 98 99 99 Oximetry 12/19/19 12/19/19 12/19/19 04:45 05:00 05:11 Temperature Pulse Rate 99 H 99 H 97 H Pulse Rate [ Anterior Bilateral Throughout] Pulse Rate [ From Monitor] Pulse Rate [ Left Dorsalis Pedis] Respiratory 28 H 29 H Rate Respiratory Rate [Anterior Bilateral Throughout] Blood Pressure 170/92 171/91 171/91 O2 Sat by Pulse 99 98 99 Oximetry 12/19/19 12/19/19 12/19/19 05:15 05:31 05:45 Temperature Pulse Rate 96 H 100 H 98 H Pulse Rate [ Anterior Bilateral Throughout] Pulse Rate [ From Monitor] Pulse Rate [ Left Dorsalis Pedis] Respiratory 31 H 31 H 25 H Rate Respiratory Rate [Anterior Bilateral Throughout] Blood Pressure 171/91 171/91 171/91 O2 Sat by Pulse 99 99 99 Oximetry 12/19/19 12/19/19 12/19/19 06:00 06:15 06:31 Temperature Pulse Rate 95 H 95 H 93 H Pulse Rate [ Anterior Bilateral Throughout] Pulse Rate [ From Monitor] Pulse Rate [ Left Dorsalis Pedis] Respiratory 26 H 28 H 24 Rate Respiratory Rate [Anterior Bilateral Throughout] Blood Pressure 173/91 173/91 173/91 O2 Sat by Pulse 99 99 99 Oximetry 12/19/19 12/19/19 12/19/19 06:45 07:00 07:15 Temperature Pulse Rate 94 H 95 H 95 H Pulse Rate [ Anterior Bilateral Throughout] Pulse Rate [ From Monitor] Pulse Rate [ Left Dorsalis Pedis] Respiratory 21 21 30 H Rate Respiratory Rate [Anterior Bilateral Throughout] Blood Pressure 173/91 160/86 160/86 O2 Sat by Pulse 98 99 99 Oximetry 12/19/19 12/19/19 12/19/19 07:31 07:45 08:00 Temperature 97.5 F L Pulse Rate 95 H 96 H 99 H Pulse Rate [ Anterior Bilateral Throughout] Pulse Rate [ 95 H From Monitor] Pulse Rate [ Left Dorsalis Pedis] Respiratory 26 H 29 H 19 Rate Respiratory Rate [Anterior Bilateral Throughout] Blood Pressure 160/86 160/86 162/89 O2 Sat by Pulse 99 99 99 Oximetry 12/19/19 12/19/19 12/19/19 08:05 08:15 08:31 Temperature Pulse Rate 97 H 100 H 99 H Pulse Rate [ Anterior Bilateral Throughout] Pulse Rate [ From Monitor] Pulse Rate [ Left Dorsalis Pedis] Respiratory 33 H 34 H 36 H Rate Respiratory Rate [Anterior Bilateral Throughout] Blood Pressure 162/89 162/89 162/89 O2 Sat by Pulse 100 99 97 Oximetry 12/19/19 12/19/19 12/19/19 08:43 08:45 09:00 Temperature Pulse Rate 99 H 95 H Pulse Rate [ 99 H Anterior Bilateral Throughout] Pulse Rate [ From Monitor] Pulse Rate [ Left Dorsalis Pedis] Respiratory 29 H 35 H Rate Respiratory 25 H Rate [Anterior Bilateral Throughout] Blood Pressure 162/89 146/92 O2 Sat by Pulse 98 98 Oximetry 12/19/19 12/19/19 12/19/19 09:15 09:31 09:45 Temperature Pulse Rate 93 H 96 H 97 H Pulse Rate [ Anterior Bilateral Throughout] Pulse Rate [ From Monitor] Pulse Rate [ Left Dorsalis Pedis] Respiratory 36 H 32 H 21 Rate Respiratory Rate [Anterior Bilateral Throughout] Blood Pressure 146/92 146/92 146/92 O2 Sat by Pulse 98 98 98 Oximetry 12/19/19 12/19/19 12/19/19 10:00 10:06 10:15 Temperature Pulse Rate 97 H 95 H 96 H Pulse Rate [ Anterior Bilateral Throughout] Pulse Rate [ From Monitor] Pulse Rate [ Left Dorsalis Pedis] Respiratory 36 H 32 H Rate Respiratory Rate [Anterior Bilateral Throughout] Blood Pressure 156/99 156/99 156/99 O2 Sat by Pulse 98 98 Oximetry 12/19/19 12/19/19 12/19/19 10:31 10:45 11:00 Temperature Pulse Rate 95 H 95 H 95 H Pulse Rate [ Anterior Bilateral Throughout] Pulse Rate [ From Monitor] Pulse Rate [ Left Dorsalis Pedis] Respiratory 33 H 35 H 33 H Rate Respiratory Rate [Anterior Bilateral Throughout] Blood Pressure 156/99 156/99 164/88 O2 Sat by Pulse 100 99 98 Oximetry Constitutional: no acute distress, other (elderly and chronically ill looking, atraumatic, normocephalic) Eyes: non-icteric, other (orally intubated ETT at 23cm, no patient-ventilator dys-synchrony) ENT: oropharynx moist, other (ETT 23 cm ELISEO) Neck: supple, no JVD Effort: mildly labored Ascultation: Bilateral: diminished breath sounds, rhonchi Percussion: Bilateral: not dull Cardiovascular: regular rate and rhythm, other (S1,S2, no murmurs) Gastrointestinal: normoactive bowel sounds, soft, non-tender, non-distended, other (PEG in place) Integumentary: normal Extremities: no cyanosis, no edema, pulses normal, no ischemia or petechiae Neurologic: non-focal exam (grossly), pupils equal and round, other (somnolent; weak) Psychiatric: mood appropriate, affect normal CBC and BMP: 12/18/19 04:23 12/19/19 05:51 ABG, PT/INR, D-dimer: ABG ABG pH 7.421 pH Units (7.350-7.450) 12/18/19 04:30 ABG pCO2 35.4 mm Hg 12/18/19 04:30 ABG pO2 89.7 mm Hg (80.0-90.0) 12/18/19 04:30 ABG O2 Saturation 97.3 % (95.0-99.0) 12/18/19 04:30 PT/INR, D-dimer PT 15.1 Sec. (12.2-14.9) H 12/12/19 05:00 INR 1.17 (0.87-1.13) H 12/12/19 05:00 Abnormal lab findings: Abnormal Labs 12/12/19 12/12/19 12/12/19 04:35 05:00 05:00 RBC 2.39 L Hgb 7.7 L Hct 23.1 L MCV 97 H RDW 18.8 H Plt Count Lymph % (Auto) 9.9 L [place] % (Auto) Eos % (Auto) Lymph # 0.5 L Seg Neutrophils % 86.5 H Seg Neutrophils # PT INR ABG pH ABG pO2 ABG HCO3 ABG O2 Saturation ABG Base Excess ABG Hemoglobin Oxyhemoglobin Sodium Potassium Chloride Carbon Dioxide 19 L BUN 51 H Creatinine 1.9 H Glucose 117 H POC Glucose 129 H Lactic Acid Calcium AST 46 H ALT 72 H Troponin T 0.080 H Albumin 2.2 L LDL Cholesterol Direct 38 L Vancomycin Trough Crossmatch 12/12/19 12/12/19 12/12/19 05:00 05:00 05:00 RBC Hgb Hct MCV RDW Plt Count Lymph % (Auto) [place] % (Auto) Eos % (Auto) Lymph # Seg Neutrophils % Seg Neutrophils # PT 15.1 H INR 1.17 H ABG pH 7.320 L ABG pO2 95.6 H ABG HCO3 18.2 L ABG O2 Saturation 99.5 H ABG Base Excess -7.2 L ABG Hemoglobin 7.3 L Oxyhemoglobin 94.9 L Sodium Potassium Chloride Carbon Dioxide BUN Creatinine Glucose POC Glucose Lactic Acid 7.90 H* Calcium AST ALT Troponin T Albumin LDL Cholesterol Direct Vancomycin Trough Crossmatch 12/12/19 12/12/19 12/12/19 05:00 07:04 08:10 RBC Hgb Hct MCV RDW Plt Count Lymph % (Auto) [place] % (Auto) Eos % (Auto) Lymph # Seg Neutrophils % Seg Neutrophils # PT INR ABG pH ABG pO2 ABG HCO3 ABG O2 Saturation ABG Base Excess ABG Hemoglobin Oxyhemoglobin Sodium Potassium Chloride Carbon Dioxide BUN Creatinine Glucose POC Glucose Lactic Acid 7.30 H* 6.40 H* Calcium AST ALT Troponin T Albumin LDL Cholesterol Direct Vancomycin Trough Crossmatch See Detail 12/12/19 12/12/19 12/12/19 15:01 18:48 Unknown RBC Hgb Hct MCV RDW Plt Count Lymph % (Auto) [place] % (Auto) Eos % (Auto) Lymph # Seg Neutrophils % Seg Neutrophils # PT INR ABG pH ABG pO2 ABG HCO3 ABG O2 Saturation ABG Base Excess ABG Hemoglobin Oxyhemoglobin Sodium Potassium Chloride Carbon Dioxide BUN Creatinine Glucose POC Glucose 62 L Lactic Acid 2.90 H* 4.30 H* Calcium AST ALT Troponin T Albumin LDL Cholesterol Direct Vancomycin Trough Crossmatch 12/13/19 12/13/19 12/13/19 04:56 04:56 05:40 RBC 2.24 L Hgb 7.1 L Hct 21.6 L MCV 96 H RDW 19.9 H Plt Count 135 L Lymph % (Auto) 11.6 L [place] % (Auto) Eos % (Auto) Lymph # 1.1 L Seg Neutrophils % 79.2 H Seg Neutrophils # 7.8 H PT INR ABG pH ABG pO2 ABG HCO3 17.3 L ABG O2 Saturation ABG Base Excess -7.2 L ABG Hemoglobin 7.8 L Oxyhemoglobin Sodium Potassium Chloride 111.8 H Carbon Dioxide 16 L BUN 39 H Creatinine 1.6 H Glucose 101 H POC Glucose Lactic Acid Calcium AST ALT Troponin T Albumin LDL Cholesterol Direct Vancomycin Trough Crossmatch 12/13/19 12/13/19 12/14/19 18:05 23:24 04:22 RBC Hgb Hct MCV RDW Plt Count Lymph % (Auto) [place] % (Auto) Eos % (Auto) Lymph # Seg Neutrophils % Seg Neutrophils # PT INR ABG pH ABG pO2 156.5 H ABG HCO3 17.3 L ABG O2 Saturation ABG Base Excess -7.6 L ABG Hemoglobin 5.5 L Oxyhemoglobin Sodium Potassium Chloride Carbon Dioxide BUN Creatinine Glucose POC Glucose 165 H 110 H Lactic Acid Calcium AST ALT Troponin T Albumin LDL Cholesterol Direct Vancomycin Trough Crossmatch 12/14/19 12/14/19 12/14/19 06:18 06:45 06:45 RBC 1.98 L Hgb 6.3 L Hct 19.4 L* MCV 98 H RDW 20.3 H Plt Count 103 L Lymph % (Auto) 9.7 L [place] % (Auto) Eos % (Auto) Lymph # 0.9 L Seg Neutrophils % 81.4 H Seg Neutrophils # 7.8 H PT INR ABG pH ABG pO2 ABG HCO3 ABG O2 Saturation ABG Base Excess ABG Hemoglobin Oxyhemoglobin Sodium Potassium Chloride 115.3 H Carbon Dioxide 17 L BUN 38 H Creatinine 1.7 H Glucose 117 H POC Glucose 138 H Lactic Acid Calcium AST ALT Troponin T Albumin LDL Cholesterol Direct Vancomycin Trough Crossmatch 12/14/19 12/14/19 12/14/19 12:54 17:35 23:35 RBC Hgb Hct MCV RDW Plt Count Lymph % (Auto) [place] % (Auto) Eos % (Auto) Lymph # Seg Neutrophils % Seg Neutrophils # PT INR ABG pH ABG pO2 ABG HCO3 ABG O2 Saturation ABG Base Excess ABG Hemoglobin Oxyhemoglobin Sodium Potassium Chloride Carbon Dioxide BUN Creatinine Glucose POC Glucose 127 H 163 H 116 H Lactic Acid Calcium AST ALT Troponin T Albumin LDL Cholesterol Direct Vancomycin Trough Crossmatch 12/15/19 12/15/19 12/15/19 04:10 05:30 05:30 RBC 2.97 L Hgb 9.4 L D Hct 28.3 L D MCV 95 H RDW 17.8 H Plt Count 101 L Lymph % (Auto) 5.2 L [place] % (Auto) Eos % (Auto) Lymph # 0.5 L Seg Neutrophils % 87.5 H Seg Neutrophils # 8.2 H PT INR ABG pH ABG pO2 71.3 L ABG HCO3 16.5 L ABG O2 Saturation ABG Base Excess -7.9 L ABG Hemoglobin 10.9 L Oxyhemoglobin 93.4 L Sodium Potassium Chloride Carbon Dioxide BUN Creatinine Glucose POC Glucose Lactic Acid Calcium AST ALT Troponin T Albumin LDL Cholesterol Direct Vancomycin Trough 23.6 H Crossmatch 12/15/19 12/15/19 12/15/19 05:30 12:35 17:24 RBC Hgb Hct MCV RDW Plt Count Lymph % (Auto) [place] % (Auto) Eos % (Auto) Lymph # Seg Neutrophils % Seg Neutrophils # PT INR ABG pH ABG pO2 ABG HCO3 ABG O2 Saturation ABG Base Excess ABG Hemoglobin Oxyhemoglobin Sodium Potassium Chloride 117.0 H Carbon Dioxide 14 L BUN 35 H Creatinine Glucose POC Glucose 120 H 155 H Lactic Acid Calcium 10.3 H AST ALT Troponin T Albumin LDL Cholesterol Direct Vancomycin Trough Crossmatch 12/16/19 12/16/19 12/16/19 04:30 05:38 06:30 RBC 3.04 L Hgb 9.6 L Hct 29.1 L MCV 96 H RDW 17.5 H Plt Count 105 L Lymph % (Auto) [place] % (Auto) Eos % (Auto) Lymph # Seg Neutrophils % Seg Neutrophils # PT INR ABG pH ABG pO2 146.9 H ABG HCO3 18.0 L ABG O2 Saturation ABG Base Excess -6.5 L ABG Hemoglobin 8.9 L Oxyhemoglobin Sodium Potassium Chloride Carbon Dioxide BUN Creatinine Glucose POC Glucose 128 H Lactic Acid Calcium AST ALT Troponin T Albumin LDL Cholesterol Direct Vancomycin Trough Crossmatch 12/16/19 12/16/19 12/17/19 12:10 17:52 04:40 RBC Hgb Hct MCV RDW Plt Count Lymph % (Auto) [place] % (Auto) Eos % (Auto) Lymph # Seg Neutrophils % Seg Neutrophils # PT INR ABG pH ABG pO2 109.1 H ABG HCO3 ABG O2 Saturation ABG Base Excess -4.6 L ABG Hemoglobin 10.9 L Oxyhemoglobin Sodium Potassium Chloride Carbon Dioxide BUN Creatinine Glucose POC Glucose 124 H 136 H Lactic Acid Calcium AST ALT Troponin T Albumin LDL Cholesterol Direct Vancomycin Trough Crossmatch 12/17/19 12/17/19 12/17/19 05:18 11:45 17:27 RBC Hgb Hct MCV RDW Plt Count Lymph % (Auto) [place] % (Auto) Eos % (Auto) Lymph # Seg Neutrophils % Seg Neutrophils # PT INR ABG pH ABG pO2 ABG HCO3 ABG O2 Saturation ABG Base Excess ABG Hemoglobin Oxyhemoglobin Sodium Potassium Chloride Carbon Dioxide BUN Creatinine Glucose POC Glucose 140 H 116 H 110 H Lactic Acid Calcium AST ALT Troponin T Albumin LDL Cholesterol Direct Vancomycin Trough Crossmatch 12/18/19 12/18/19 12/18/19 00:48 04:23 04:30 RBC 3.49 L Hgb 10.8 L Hct 32.8 L MCV RDW 17.9 H Plt Count 103 L Lymph % (Auto) [place] % (Auto) 8.4 H Eos % (Auto) 4.8 H Lymph # 1.0 L Seg Neutrophils % 73.0 H Seg Neutrophils # PT INR ABG pH ABG pO2 ABG HCO3 ABG O2 Saturation ABG Base Excess ABG Hemoglobin 10.0 L Oxyhemoglobin Sodium Potassium Chloride Carbon Dioxide BUN Creatinine Glucose POC Glucose 128 H Lactic Acid Calcium AST ALT Troponin T Albumin LDL Cholesterol Direct Vancomycin Trough Crossmatch 12/18/19 12/18/19 12/18/19 06:37 12:30 19:00 RBC Hgb Hct MCV RDW Plt Count Lymph % (Auto) [place] % (Auto) Eos % (Auto) Lymph # Seg Neutrophils % Seg Neutrophils # PT INR ABG pH ABG pO2 ABG HCO3 ABG O2 Saturation ABG Base Excess ABG Hemoglobin Oxyhemoglobin Sodium Potassium Chloride Carbon Dioxide BUN Creatinine Glucose POC Glucose 132 H 127 H 130 H Lactic Acid Calcium AST ALT Troponin T Albumin LDL Cholesterol Direct Vancomycin Trough Crossmatch 12/19/19 05:51 RBC Hgb Hct MCV RDW Plt Count Lymph % (Auto) [place] % (Auto) Eos % (Auto) Lymph # Seg Neutrophils % Seg Neutrophils # PT INR ABG pH ABG pO2 ABG HCO3 ABG O2 Saturation ABG Base Excess ABG Hemoglobin Oxyhemoglobin Sodium 147 H Potassium 3.5 L Chloride 114.3 H Carbon Dioxide 21 L D BUN 37 H Creatinine Glucose 119 H POC Glucose Lactic Acid Calcium 11.8 H AST ALT Troponin T Albumin LDL Cholesterol Direct Vancomycin Trough Crossmatch Chest x-ray: image reviewed (persisitent bilateral patchy infiltrates) Allied health notes reviewed: nursing
--- NOTE | 2019-12-19 13:07 | Progress Note ---
Assessment and Plan Cultures: 12/12/2019 sputum culture: MRSA 12/12/2019 blood culture: No growth A/P: 79-year-old male with hypertension, dementia, CKD, CVA with a aphasia and status post PEG tube placement, resident of group home, multiple recent hospitalizations, most recently in November 2019 with bilateral pneumonia, acute anemia requiring antibiotics as well as blood transfusion. He was sent to the emergency room from the group home on 12/12/2019 with worsening mental status, respiratory distress and hypoxia: #Septic shock, likely secondary to bilateral pneumonia: Sputum culture growing MRSA, vancomycin SAMMIE of 2.0. Patient with multiple recent hospitalizations and group home resident and multiple exposures to vancomycin and JULIA on admission. UA not suggestive of infection. #Acute respiratory failure: Secondary to above. On mechanical ventilation. #JULIA on CKD: renally dose abx. #Acute anemia: Receiving blood transfusions. #Mild transaminitis: Likely secondary to septic shock. #Mild thrombocytopenia: Could be related to sepsis. Monitor. Recs: Continue linezolid PO 600 mg q12 hrs, today is overall day 7 of 10 day course Low platelets have remained stable Will sign off. Please call with questions or changes in status. Chana Mandujano MD, FACP [facility] C: [phone] O: [phone] F: [phone] Subjective Date of service: 12/19/19 Principal diagnosis: Severe Sepsis with Shock; Pneumonia; Ac hypoxemic respfailure; CKD Interval history: Patient afebrile. No hemodynamic instability. Intubated, on the vent. Objective - Exam Narrative Exam: Physical Exam: Constitutional: opening eyes, intubated Head, Ears, Nose: Normocephalic, atraumatic. External ears, nose normal Eyes: Conjunctivae/corneas clear. No icterus. No ptosis. Neck: Intubated Oral: Intubated Cardiovascular: S1, S2 normal Respiratory: clear b/l GI: Soft, non-tender; bowel sounds +, PEG tube present Musculoskeletal: No pedal edema, no cyanosis. Skin: No rash or abscess Hem/Lymphatic: No palpable cervical or supraclavicular nodes. No lymphangitis Psych: no agitation Neurological: opening eyes, but not following commands, intubated, on vent - Constitutional Vitals: Vital Signs Temp Pulse Resp BP Pulse Ox 97.5 F L 86 32 H 155/89 99 12/19/19 08:00 12/19/19 12:18 12/19/19 12:18 12/19/19 12:18 12/19/19 12:18 Temperature -Last 24 Hours Temperature 97.5 F Temperature 98.7 F Temperature 97.5 F Temperature 98.3 F Temperature 98.0 F - Labs CBC & Chem 7: 12/18/19 04:23 12/19/19 05:51 Labs: Abnormal lab results 12/18/19 12/19/19 12/19/19 Range/Units 19:00 05:51 12:41 Sodium 147 H (137-145) mmol/L Potassium 3.5 L (3.6-5.0) mmol/L Chloride 114.3 H (98-107) mmol/L Carbon Dioxide 21 L D (22-30) mmol/L BUN 37 H (9-20) mg/dL Glucose 119 H (75-100) mg/dL POC Glucose 130 H 123 H (70-105) Calcium 11.8 H (8.4-10.2) mg/dL
[2019-12-19] MEDS ORDERED: POTASSIUM CHLORIDE 20 MEQ PACKET FEEDTUBE ONE (14:00)
[2019-12-19 14:53] LABS: ABG Base Excess 1.7 mmol/L (-2.0-3.0); ABG HCO3 26.1 mmol/L (20.0-26.0); ABG Methemoglobin 0.6 % (0.0-1.5); ABG Oxygen Saturation 97.4 % (95.0-99.0); ABG PCO2 40.2 mm Hg; ABG PH 7.43 pH Units (7.350-7.450); ABG PO2 93.5 mm Hg (80.0-90.0)
--- NOTE | 2019-12-19 18:52 | Progress Note ---
Assessment and Plan Assessment and plan: The high probability of a clinically significant, sudden or life threatening deterioration of the [] system(s) required my full and direct attention, intervention and personal management. The aggregate critical care time was [] minutes. This time is in addition to time spent performing reported procedures but includes the following: [x]x Data Review and interpretation [x] Patient assessment and monitoring of vital signs [x] Documentation [x] Medication orders and management Total Time Spent with Patient (Minutes): 30 - Patient Problems (1) Acute encephalopathy Current Visit: Yes Status: Acute Plan to address problem: Multifactorial secondary to sepsis on underlying dementia. Attempt to treat underlying etiology. Overall prognosis poor. Dementia most likely has progressed significantly. (2) Acute respiratory failure Current Visit: Yes Status: Acute Plan to address problem: Patient at present remains intubated unable to wean. Recurrent aspiration guille ateral pneumonia. Will be very difficult to get patient off the vent. Becomes hypoxic with weaning. Will attempt to treat bilateral pneumonia which at this point has most likely come from aspiration. Would be difficult to stop all aspiration in this patient. Patient on day 7 out of 10 of [place] (3) Bilateral pneumonia Current Visit: Yes Status: Acute Plan to address problem: Most likely secondary to recurrent aspiration pneumonia. Will be difficult. Patient has had recurrent pneumonia multiple hospitalizations. Clearly hospice appropriate. Especially with advancing dementia. (4) Dementia Current Visit: Yes Status: Acute Plan to address problem: Patient with advanced dementia. Medications unlikely to prove any benefit at this particular time. Extremely poor functional status. Overall prognosis poor with attempt to treat underlying etiology and see how patient responds. (5) Septic shock Current Visit: Yes Status: Acute Plan to address problem: Resolving. Continue current antibiotics. Fever curve downtrending. (6) JULIA (acute kidney injury) Current Visit: No Status: Acute Plan to address problem: Patient with acute on most likely chronic renal insufficiency secondary to prerenal azotemia. (7) Aspiration pneumonia Current Visit: No Status: Acute Plan to address problem: Status post PEG tube placement was happening before and now after. Spoke with family about options. (8) Debility Current Visit: No Status: Acute History Interval history: Patient 79-year-old with a history of hypertension dementia chronic kidney disease status post PEG tube. Multiple episodes of aspiration pneumonia. Presented today with bilateral pneumonia hospital-acquired pneumonia patient [facility] resident. Sputum culture showed MRSA. Patient encephalopathic. At present remains unable to wean. Hospitalist Physical - Constitutional Vitals: Temp Pulse Resp BP Pulse Ox 97.0 F L 87 31 H 146/79 99 12/19/19 12:00 12/19/19 16:30 12/19/19 16:30 12/19/19 16:30 12/19/19 16:30 General appearance: Present: no acute distress, other (intubated and sedated) - Neck Neck: Present: supple. Absent: enlarged thyroid, masses or JVD - Respiratory Respiratory: bilateral: diminished - Cardiovascular Rhythm: regular - Extremities Extremities: pulses intact, pulses symmetrical, normal color Peripheral Pulses: abnormal - Abdominal General gastrointestinal: soft, non-tender, hypoactive bowel sounds - Integumentary Integumentary: Present: clear, warm, dry - Neurologic Neurologic: focal deficits Results - Labs CBC & Chem 7: 12/18/19 04:23 12/19/19 05:51 Labs: Laboratory Last Values WBC 7.3 K/mm3 (4.5-11.0) 12/18/19 04:23 RBC 3.49 M/mm3 (3.65-5.03) L 12/18/19 04:23 Hgb 10.8 gm/dl (11.8-15.2) L 12/18/19 04:23 Hct 32.8 % (35.5-45.6) L 12/18/19 04:23 MCV 94 fl (84-94) 12/18/19 04:23 MCH 31 pg (28-32) 12/18/19 04:23 MCHC 33 % (32-34) 12/18/19 04:23 RDW 17.9 % (13.2-15.2) H 12/18/19 04:23 Plt Count 103 K/mm3 (140-440) L 12/18/19 04:23 Lymph % (Auto) 13.6 % (13.4-35.0) 12/18/19 04:23 [place] % (Auto) 8.4 % (0.0-7.3) H 12/18/19 04:23 Eos % (Auto) 4.8 % (0.0-4.3) H 12/18/19 04:23 Baso % (Auto) 0.2 % (0.0-1.8) 12/18/19 04:23 Lymph # 1.0 K/mm3 (1.2-5.4) L 12/18/19 04:23 [place] # 0.6 K/mm3 (0.0-0.8) 12/18/19 04:23 Eos # 0.4 K/mm3 (0.0-0.4) 12/18/19 04:23 Baso # 0.0 K/mm3 (0.0-0.1) 12/18/19 04:23 Seg Neutrophils % 73.0 % (40.0-70.0) H 12/18/19 04:23 Seg Neutrophils # 5.3 K/mm3 (1.8-7.7) 12/18/19 04:23 PT 15.1 Sec. (12.2-14.9) H 12/12/19 05:00 INR 1.17 (0.87-1.13) H 12/12/19 05:00 APTT 28.0 Sec. (24.2-36.6) 12/12/19 05:00 ABG pH 7.430 pH Units (7.350-7.450) 12/19/19 14:43 ABG pCO2 40.2 mm Hg 12/19/19 14:43 ABG pO2 93.5 mm Hg (80.0-90.0) H 12/19/19 14:43 ABG HCO3 26.1 mmol/L (20.0-26.0) H 12/19/19 14:43 ABG O2 Saturation 97.4 % (95.0-99.0) 12/19/19 14:43 ABG O2 Content 13.4 (0.0-44) 12/19/19 14:43 ABG Base Excess 1.7 mmol/L (-2.0-3.0) 12/19/19 14:43 ABG Hemoglobin 9.9 gm/dl (14.0-18.0) L 12/19/19 14:43 ABG Carboxyhemoglobin 1.7 % (0.0-5.0) 12/19/19 14:43 ABG Methemoglobin 0.6 % (0.0-1.5) 12/19/19 14:43 VBG pH 7.320 (7.320-7.420) 12/12/19 05:00 Oxyhemoglobin 95.1 % (95.0-99.0) 12/19/19 14:43 FiO2 25 % 12/19/19 14:43 Sodium 147 mmol/L (137-145) H 12/19/19 05:51 Potassium 3.5 mmol/L (3.6-5.0) L 12/19/19 05:51 Chloride 114.3 mmol/L (98-107) H 12/19/19 05:51 Carbon Dioxide 21 mmol/L (22-30) L D 12/19/19 05:51 Anion Gap 15 mmol/L 12/19/19 05:51 BUN 37 mg/dL (9-20) H 12/19/19 05:51 Creatinine 1.3 mg/dL (0.8-1.5) 12/19/19 05:51 Estimated GFR > 60 ml/min 12/19/19 05:51 BUN/Creatinine Ratio 28 % 12/19/19 05:51 Glucose 119 mg/dL (75-100) H 12/19/19 05:51 POC Glucose 123 (70-105) H 12/19/19 12:41 Lactic Acid 1.60 mmol/L (0.7-2.0) 12/13/19 04:56 Calcium 11.8 mg/dL (8.4-10.2) H 12/19/19 05:51 Total Bilirubin 0.30 mg/dL (0.1-1.2) 12/12/19 05:00 AST 46 units/L (5-40) H 12/12/19 05:00 ALT 72 units/L (7-56) H 12/12/19 05:00 Alkaline Phosphatase 84 units/L (35-129) 12/12/19 05:00 Troponin T 0.080 ng/mL (0.00-0.029) H 12/12/19 05:00 Total Protein 6.4 g/dL (6.3-8.2) 12/12/19 05:00 Albumin 2.2 g/dL (3.9-5) L 12/12/19 05:00 Albumin/Globulin Ratio 0.5 % 12/12/19 05:00 Triglycerides 30 mg/dL (2-149) 12/12/19 05:00 Cholesterol 82 mg/dL (50-199) 12/12/19 05:00 LDL Cholesterol Direct 38 mg/dL (50-130) L 12/12/19 05:00 HDL Cholesterol 45 mg/dL (40-59) 12/12/19 05:00 Cholesterol/HDL Ratio 1.82 % 12/12/19 05:00 Urine Color Yellow (Yellow) 12/12/19 Unknown Urine Turbidity Cloudy (Clear) 12/12/19 Unknown Urine pH 5.0 (5.0-7.0) 12/12/19 Unknown Ur Specific Hope 1.014 (1.003-1.030) 12/12/19 Unknown Urine Protein <15 mg/dl mg/dL (Negative) 12/12/19 Unknown Urine Glucose (UA) Neg mg/dL (Negative) 12/12/19 Unknown Urine Ketones Neg mg/dL (Negative) 12/12/19 Unknown Urine Blood Neg (Negative) 12/12/19 Unknown Urine Nitrite Neg (Negative) 12/12/19 Unknown Urine Bilirubin Neg (Negative) 12/12/19 Unknown Urine Urobilinogen < 2.0 mg/dL (<2.0) 12/12/19 Unknown Ur Leukocyte Esterase Neg (Negative) 12/12/19 Unknown Urine WBC (Auto) 2.0 /HPF (0.0-6.0) 12/12/19 Unknown Urine RBC (Auto) 3.0 /HPF (0.0-6.0) 12/12/19 Unknown U Epithel Cells (Auto) 1.0 /HPF (0-13.0) 12/12/19 Unknown Urine Bacteria (Auto) 1+ /HPF (Negative) 12/12/19 Unknown Hyaline Casts 1 /LPF 12/12/19 Unknown Urine Mucus Few /HPF 12/12/19 Unknown Vancomycin Trough 23.6 ug/mL (5.0-20.0) H 12/15/19 05:30 Blood Type A POSITIVE 12/12/19 05:00 Antibody Screen Negative 12/12/19 05:00 Crossmatch See Detail 12/12/19 05:00 Power/IV: Voiding Method Condom Catheter IV Catheter Type [Right Hand] INT / Saline Lock IV Catheter Type [Right Chest] Triple Lumen Cath IV Catheter Type [Right Peripheral IV Antecubital] Active Medications - Current Medications Current Medications: Generic Name Dose Route Start Last Admin Trade Name Freq PRN Reason Stop Dose Admin Acetaminophen 650 mg 12/14/19 14:25 Tylenol PO Q6H PRN Pain MILD(1-3)/Fever >100.5/BRUSH Albuterol/Ipratropium 1 ampul 12/12/19 08:00 12/19/19 14:38 Duoneb *Not For Prn Use* IH 1 ampul Q6HRT AYUSH Administration Allopurinol 300 mg 12/12/19 10:00 12/19/19 10:06 Zyloprim PO 300 mg QDAY AYUSH Administration Lipase/Protease/Amylase 1 each 12/12/19 12:[address] 10,500 Unit FEEDTUBE PRN PRN For Clogged Feeding Tube Aspirin 81 mg 12/13/19 10:00 12/19/19 10:06 Baby Aspirin PO 81 mg QDAY AYUSH Administration Atorvastatin Calcium 40 mg 12/12/19 22:00 12/18/19 22:22 Lipitor PO 40 mg QHS AYUSH Administration Carvedilol 6.25 mg 12/19/19 22:00 Coreg PO BID [facility] Cyanocobalamin 1,000 mcg 12/12/19 10:00 12/12/19 10:00 Vitamin B-12 IM 1,000 mcg QMONTH AYUSH Administration Folic Acid 1 mg 12/12/19 10:00 12/19/19 10:06 Folvite PO 1 mg DAILY AYUSH Administration Heparin Sodium (Porcine) 5,000 unit 12/12/19 14:00 12/19/19 14:05 Heparin SUB-Q 5,000 unit Q8HR AYUSH Administration Hydralazine HCl 5 mg 12/17/19 17:06 12/18/19 16:42 Apresoline IV 5 mg Q30MIN PRN Administration Hypertension Hydrophilic Ointment 1 applic 12/12/19 05:18 Vaseline Lip Therapy TP Q2HR PRN Dry Lips Norepinephrine 4 mg in 250 mls @ 7.5 mls/hr 12/12/19 06:00 12/15/19 01:00 Levophed Drip 4 Mg/Ns 250 Ml IV 0 mcg/min TITR AYUSH 0 mls/hr Titration Protocol 2 MCG/MIN Vasopressin 20 unit/ Sodium 101 mls @ 9.09 mls/hr 12/12/19 19:00 12/14/19 14:42 Chloride IV 0 units/min TITR AYUSH 0 mls/hr Titration Protocol 0.03 UNITS/MIN Lansoprazole 30 mg 12/14/19 15:00 12/19/19 10:06 Prevacid Solutab FEEDTUBE 30 mg QDAY AYUSH Administration Linezolid 600 mg 12/18/19 13:00 12/19/19 10:05 Zyvox PO 12/22/19 12:59 600 mg Q12HR AYUSH Administration Protocol Multi-Ingred Cream/Lotion/Oil/Oint 1 applic 12/12/19 05:18 Artificial Tears Ophth Oint OU Q4HR PRN Dry Eye(s) Multivitamins 5 ml 12/15/19 10:00 12/19/19 10:05 Centrum Liq PO 5 ml QDAY AYUSH Administration Ondansetron HCl 4 mg 12/12/19 07:52 Zofran IV Q8H PRN Nausea And Vomiting Oxycodone/Acetaminophen 1 tab 12/19/19 13:45 Percocet 5/325 PO Q4H PRN Pain, Moderate (4-6) Senna 8.8 mg 12/15/19 22:00 12/19/19 10:08 Senokot FEEDTUBE 8.8 mg BID AYUSH Administration Simple Syrup 15 ml 12/12/19 12:32 12/12/19 18:40 Simple Syrup FEEDTUBE 15 ml PRN PRN Administration Hypoglycemia Simple Syrup 30 ml 12/12/19 12:32 Simple Syrup FEEDTUBE PRN PRN Hypoglycemia Sodium Bicarbonate 325 mg 12/12/19 12:32 Sodium Bicarbonate FEEDTUBE PRN PRN For Clogged Feeding Tube Sodium Chloride 10 ml 12/12/19 10:00 12/19/19 10:09 Sodium Chloride Flush Syringe 10 Ml IV 10 ml BID AYUSH Administration Sodium Chloride 10 ml 12/12/19 07:52 12/12/19 21:38 Sodium Chloride Flush Syringe 10 Ml IV 10 ml PRN PRN Administration LINE FLUSH Nutrition/Malnutrition Assess - Dietary Evaluation Nutrition/Malnutrition Findings: Nutrition Notes Start: 12/12/19 12:10 Freq: Status: Active Protocol: Document 12/19/19 15:26 LM (Rec: 12/19/19 15:28 LM [email or web address]) Nutrition Notes Initial or Follow up Reassessment Current Diagnosis Acute Kidney Injury,CKD(stage I-IV),Sepsis,Hypertension, Respiratory Failure Other Pertinent Diagnosis hx CVA with dysphasia, PEG, dementia Current Diet Osmolite 1.5 at 50 ml/hr Labs/Tests Na 147 K 3.5 BUN 37 Pertinent Medications Reviewed Height 5 ft 8 in Weight 76.204 kg [place] Body Weight (kg) 70.00 BMI 25.5 Subjective/Other Information Per RN pt is tolerating TF at 50 ml/hr. Increased flush for hypernatremia. Percent of energy/protein needs met: 100%/100% Burn Absent Trauma Absent GI Symptoms None Current % PO Negligible Minimum of two criteria No Muscle Mass Mild Depletion (non-severe) #1 Nutrition Diagnosis Inadequate oral intake Diagnosis Progress(for reassessment Continues documentation) Is patient on ventilator? Yes Is Patient Ambulatory and/or Out of Bed No REE-([facility]-confined to bed) [phone] Calculation Used for Recommendations [facility] Additional Notes Protein:61-152g (0.8-2g/kg) CKD, JULIA, and vent needs Fluid: 1 ml/kcal or per MD Nutrition Intervention Change Diet Order: TF Nutrition Support: Osmolite 1.5 at 50ml/hr Flush 250 ml q4h for hypernatremia Flush 170 ml q4h once hypernatremia resolves Kcal 1,800 Protein (gm) 75 Fluid (mL) 914 Goal #1 TF tolerance Goal #2 Meet at least 75% of energy and protein needs vi TF Anticipated Discharge Needs: TF Follow-Up By: 12/23/19 Additional Comments F/U for TF tolerance, Na
[2019-12-19] MEDS: carvediloL 6.25 MG TAB PO SCH (22:31)
--- NOTE | 2019-12-20 03:16 | XRay Report ---
CHEST 1 VIEW INDICATION: follow up respiratory failure COMPARISON: One day prior. FINDINGS: Support devices: Endotracheal tube position unchanged Heart: Normal and unchanged Lungs/Pleura: Interstitial lung disease has been present for at least 2 months and is mostly unchange d. However, more focal bibasilar disease has increased over the past several weeks, and is worrisome for superimposed pneumonia. IMPRESSION: 1. Persistent diffuse interstitial disease. More focal disease in the lung bases was not present brant ral weeks ago and is worrisome for pneumonia. Signer Name: Gigi Fuentes MD Signed: 12/20/2019 3:12 AM Workstation Name: [id number]
[2019-12-20] MEDS: IPRATROPIUM/ALBUTEROL SULFATE 3 ML AMPUL.NEB IH SCH ×4 (04:31→21:42)
[2019-12-20] MEDS: HEPARIN 5,000 UNIT/1 ML VIAL SUB-Q SCH ×3 (05:58→22:11)
[2019-12-20 05:59] LABS: ABG Base Excess 1.8 mmol/L (-2.0-3.0); ABG Methemoglobin 0.6 % (0.0-1.5); ABG Oxygen Saturation 96.4 % (95.0-99.0); ABG PCO2 43.6 mm Hg; ABG PO2 85.7 mm Hg (80.0-90.0)
[2019-12-20] MEDS: LANSOPRAZOLE 30 MG SOLUTAB FEEDTUBE SCH (10:13)
[2019-12-20] MEDS: carvediloL 6.25 MG TAB PO SCH ×2 (10:13→22:13)
[2019-12-20] MEDS: allopurinoL 300 MG TAB PO SCH (10:13)
[2019-12-20] MEDS: ASPIRIN 81 MG TAB CHEW PO SCH (10:13)
[2019-12-20] MEDS: hydrALAZINE 20 MG/1 ML INJ IV PRN (10:13)
[2019-12-20] MEDS: LINEZOLID 600 MG TAB PO SCH ×2 (10:14→22:12)
[2019-12-20] MEDS: MULTIVITAMINS 5 ML ORAL LIQUID PO SCH (10:14)
[2019-12-20] MEDS: FOLIC ACID 1 MG TAB PO SCH (10:14)
[2019-12-20] MEDS: SENNOSIDES ORAL LIQD 8.8 MG/5 ML ORAL LIQD FEEDTUBE SCH ×3 (10:14→22:12)
--- NOTE | 2019-12-20 16:48 | Progress Note ---
Assessment and Plan Severe Sepsis with Shock Pneumonia Acute hypoxic respiratory failure on MVS Chronic kidney disease Anemia Thrombocytopenia CHF (EF 45-50% on 10/2019) CVA with aphasia Dementia Oropharyngeal dysphagia s/p PEG - continue daytime SBT's - Percocet prn for moderate to severe pain - continue Coreg at 6.25 mg bid re: HTN - continue to rest on set rate of 12/min - Magnesium level WNL - prn vasopressor support for target MAP > 65 mmHg - Continue with MVS, Lung protective strategies, monitor airway pressures - VAP bundle addressed (continue aspiration precautions, HOB>40) - Daily SAT's and assessment for readiness for SBT - Titrate sedation for RAAS 0 to -1 - VTE prophylaxis - Stress ulcer prophylaxis - continue enteric nutrition - continue glycemic control, with target blood glucose 140-180 mg/dL while criti gabo ill. Avoid hypoglycemia - Wean supplemental oxygen for target O2 sat's > 90% - Adjust minute ventilation for better gas exchange - ABG and CXR prn - Follow cultures and adjust antibiotic therapy for SAMMIE and culture results - Avoid nephrotoxins, adjust all medications for GFR and CrCL - continue bronchodilators with pulmonary hygiene per RT - continue to avoid benzodiazepines to reduce the possibility of delirium - prn analgesia per CPOT score - Maintenance of sleep-wake cycle, avoid delirium - PT/OT/ROM exercises - continue mobility protocol and skin assessment per protocol for pressure ulcer prevention - Monitor hemodynamics closely - continue other care per attending / other consultants .... care plan discussed at length with daughter in room. CONDITION: CRITICAL PROGNOSIS: GUARDED CODE STATUS: FULL CODE The high probability of a clinically significant, sudden or life-threatening deterioration of the [respiratory, cardiovascular] system(s) required my full and direct attention, intervention and personal management. The aggregate critical care time was [33] minutes without overlap. Time includes spent on; [x] Data Review and interpretation [x] Patient assessment and monitoring of vital signs [x] Documentation [x] Medication orders and management Subjective Date of service: 12/20/19 Principal diagnosis: Severe Sepsis with Shock; Pneumonia; Ac hypoxemic respfailure; CKD Interval history: Patient is seen today for: Severe Sepsis with Shock; Pneumonia; Acute hypoxic respiratory failure on MVS; Chronic kidney disease; Anemia; Thrombocytopenia; CHF (EF 45-50% on 10/2019); CVA with aphasia; Dementia; Oropharyngeal dysphagia s/p PEG Seen and examined at bedside; 24hour events reviewed; nursing and respiratory care staff consulted; no adverse overnight events reported to me; resting peacefully in bed; tolerating SBT today but P-supp at 15 cm H2O; responds appropriately; no chest pains; No N/V/F/C Objective Vital Signs - 12hr 12/20/19 12/20/19 12/20/19 05:00 06:00 07:00 Temperature Pulse Rate 88 87 87 Pulse Rate [ Anterior Bilateral Throughout] Pulse Rate [ From Monitor] Respiratory 20 28 H 26 H Rate Respiratory Rate [Anterior Bilateral Throughout] Blood Pressure 160/91 169/93 178/99 O2 Sat by Pulse 99 97 99 Oximetry 12/20/19 12/20/19 12/20/19 07:23 07:51 08:00 Temperature 96.9 F L Pulse Rate 87 97 H Pulse Rate [ 89 Anterior Bilateral Throughout] Pulse Rate [ 97 H From Monitor] Respiratory 26 H 19 Rate Respiratory 33 H Rate [Anterior Bilateral Throughout] Blood Pressure 178/99 O2 Sat by Pulse 99 99 Oximetry 12/20/19 12/20/19 12/20/19 08:01 09:00 10:00 Temperature Pulse Rate 95 H 98 H 99 H Pulse Rate [ Anterior Bilateral Throughout] Pulse Rate [ From Monitor] Respiratory 26 H 31 H 31 H Rate Respiratory Rate [Anterior Bilateral Throughout] Blood Pressure 169/91 168/99 186/108 O2 Sat by Pulse 98 99 97 Oximetry 12/20/19 12/20/19 12/20/19 10:13 11:00 12:00 Temperature 98.4 F Pulse Rate 96 H 106 H 97 H Pulse Rate [ Anterior Bilateral Throughout] Pulse Rate [ 97 H From Monitor] Respiratory 35 H 35 H Rate Respiratory Rate [Anterior Bilateral Throughout] Blood Pressure 186/108 146/78 152/84 O2 Sat by Pulse 96 97 Oximetry 12/20/19 12/20/19 12/20/19 12:26 13:00 13:40 Temperature Pulse Rate 106 H 99 H Pulse Rate [ 102 H Anterior Bilateral Throughout] Pulse Rate [ From Monitor] Respiratory 34 H 34 H Rate Respiratory 30 H Rate [Anterior Bilateral Throughout] Blood Pressure 146/78 147/78 O2 Sat by Pulse 96 97 Oximetry 12/20/19 12/20/19 12/20/19 14:00 15:00 15:22 Temperature Pulse Rate 97 H 97 H 97 H Pulse Rate [ Anterior Bilateral Throughout] Pulse Rate [ From Monitor] Respiratory 37 H 35 H Rate Respiratory Rate [Anterior Bilateral Throughout] Blood Pressure 146/79 139/73 146/79 O2 Sat by Pulse 97 97 97 Oximetry 12/20/19 16:00 Temperature Pulse Rate 99 H Pulse Rate [ Anterior Bilateral Throughout] Pulse Rate [ 96 H From Monitor] Respiratory 32 H Rate Respiratory Rate [Anterior Bilateral Throughout] Blood Pressure 139/73 O2 Sat by Pulse 97 Oximetry Constitutional: no acute distress, other (elderly and chronically ill looking, atraumatic, normocephalic) Eyes: non-icteric, other (orally intubated ETT at 23cm, no patient-ventilator dys-synchrony) ENT: oropharynx moist, other (ETT 23 cm ELISEO) Neck: supple, no JVD Effort: mildly labored Ascultation: Bilateral: diminished breath sounds, rhonchi Percussion: Bilateral: not dull Cardiovascular: regular rate and rhythm, other (S1,S2, no murmurs) Gastrointestinal: normoactive bowel sounds, soft, non-tender, non-distended, other (PEG in place) Integumentary: normal Extremities: no cyanosis, no edema, pulses normal, no ischemia or petechiae Neurologic: non-focal exam (grossly), pupils equal and round, other (somnolent; weak) Psychiatric: mood appropriate, affect normal CBC and BMP: 12/18/19 04:23 12/19/19 05:51 ABG, PT/INR, D-dimer: ABG ABG pH 7.410 pH Units (7.350-7.450) 12/20/19 04:19 ABG pCO2 43.6 mm Hg 12/20/19 04:19 ABG pO2 85.7 mm Hg (80.0-90.0) 12/20/19 04:19 ABG O2 Saturation 96.4 % (95.0-99.0) 12/20/19 04:19 PT/INR, D-dimer PT 15.1 Sec. (12.2-14.9) H 12/12/19 05:00 INR 1.17 (0.87-1.13) H 12/12/19 05:00 Abnormal lab findings: Abnormal Labs 12/12/19 12/12/19 12/12/19 04:35 05:00 05:00 RBC 2.39 L Hgb 7.7 L Hct 23.1 L MCV 97 H RDW 18.8 H Plt Count Lymph % (Auto) 9.9 L [place] % (Auto) Eos % (Auto) Lymph # 0.5 L Seg Neutrophils % 86.5 H Seg Neutrophils # PT INR ABG pH ABG pO2 ABG HCO3 ABG O2 Saturation ABG Base Excess ABG Hemoglobin Oxyhemoglobin Sodium Potassium Chloride Carbon Dioxide 19 L BUN 51 H Creatinine 1.9 H Glucose 117 H POC Glucose 129 H Lactic Acid Calcium AST 46 H ALT 72 H Troponin T 0.080 H Albumin 2.2 L LDL Cholesterol Direct 38 L Vancomycin Trough Crossmatch 12/12/19 12/12/19 12/12/19 05:00 05:00 05:00 RBC Hgb Hct MCV RDW Plt Count Lymph % (Auto) [place] % (Auto) Eos % (Auto) Lymph # Seg Neutrophils % Seg Neutrophils # PT 15.1 H INR 1.17 H ABG pH 7.320 L ABG pO2 95.6 H ABG HCO3 18.2 L ABG O2 Saturation 99.5 H ABG Base Excess -7.2 L ABG Hemoglobin 7.3 L Oxyhemoglobin 94.9 L Sodium Potassium Chloride Carbon Dioxide BUN Creatinine Glucose POC Glucose Lactic Acid 7.90 H* Calcium AST ALT Troponin T Albumin LDL Cholesterol Direct Vancomycin Trough Crossmatch 12/12/19 12/12/19 12/12/19 05:00 07:04 08:10 RBC Hgb Hct MCV RDW Plt Count Lymph % (Auto) [place] % (Auto) Eos % (Auto) Lymph # Seg Neutrophils % Seg Neutrophils # PT INR ABG pH ABG pO2 ABG HCO3 ABG O2 Saturation ABG Base Excess ABG Hemoglobin Oxyhemoglobin Sodium Potassium Chloride Carbon Dioxide BUN Creatinine Glucose POC Glucose Lactic Acid 7.30 H* 6.40 H* Calcium AST ALT Troponin T Albumin LDL Cholesterol Direct Vancomycin Trough Crossmatch See Detail 12/12/19 12/12/19 12/12/19 15:01 18:48 Unknown RBC Hgb Hct MCV RDW Plt Count Lymph % (Auto) [place] % (Auto) Eos % (Auto) Lymph # Seg Neutrophils % Seg Neutrophils # PT INR ABG pH ABG pO2 ABG HCO3 ABG O2 Saturation ABG Base Excess ABG Hemoglobin Oxyhemoglobin Sodium Potassium Chloride Carbon Dioxide BUN Creatinine Glucose POC Glucose 62 L Lactic Acid 2.90 H* 4.30 H* Calcium AST ALT Troponin T Albumin LDL Cholesterol Direct Vancomycin Trough Crossmatch 12/13/19 12/13/19 12/13/19 04:56 04:56 05:40 RBC 2.24 L Hgb 7.1 L Hct 21.6 L MCV 96 H RDW 19.9 H Plt Count 135 L Lymph % (Auto) 11.6 L [place] % (Auto) Eos % (Auto) Lymph # 1.1 L Seg Neutrophils % 79.2 H Seg Neutrophils # 7.8 H PT INR ABG pH ABG pO2 ABG HCO3 17.3 L ABG O2 Saturation ABG Base Excess -7.2 L ABG Hemoglobin 7.8 L Oxyhemoglobin Sodium Potassium Chloride 111.8 H Carbon Dioxide 16 L BUN 39 H Creatinine 1.6 H Glucose 101 H POC Glucose Lactic Acid Calcium AST ALT Troponin T Albumin LDL Cholesterol Direct Vancomycin Trough Crossmatch 12/13/19 12/13/19 12/14/19 18:05 23:24 04:22 RBC Hgb Hct MCV RDW Plt Count Lymph % (Auto) [place] % (Auto) Eos % (Auto) Lymph # Seg Neutrophils % Seg Neutrophils # PT INR ABG pH ABG pO2 156.5 H ABG HCO3 17.3 L ABG O2 Saturation ABG Base Excess -7.6 L ABG Hemoglobin 5.5 L Oxyhemoglobin Sodium Potassium Chloride Carbon Dioxide BUN Creatinine Glucose POC Glucose 165 H 110 H Lactic Acid Calcium AST ALT Troponin T Albumin LDL Cholesterol Direct Vancomycin Trough Crossmatch 12/14/19 12/14/19 12/14/19 06:18 06:45 06:45 RBC 1.98 L Hgb 6.3 L Hct 19.4 L* MCV 98 H RDW 20.3 H Plt Count 103 L Lymph % (Auto) 9.7 L [place] % (Auto) Eos % (Auto) Lymph # 0.9 L Seg Neutrophils % 81.4 H Seg Neutrophils # 7.8 H PT INR ABG pH ABG pO2 ABG HCO3 ABG O2 Saturation ABG Base Excess ABG Hemoglobin Oxyhemoglobin Sodium Potassium Chloride 115.3 H Carbon Dioxide 17 L BUN 38 H Creatinine 1.7 H Glucose 117 H POC Glucose 138 H Lactic Acid Calcium AST ALT Troponin T Albumin LDL Cholesterol Direct Vancomycin Trough Crossmatch 12/14/19 12/14/19 12/14/19 12:54 17:35 23:35 RBC Hgb Hct MCV RDW Plt Count Lymph % (Auto) [place] % (Auto) Eos % (Auto) Lymph # Seg Neutrophils % Seg Neutrophils # PT INR ABG pH ABG pO2 ABG HCO3 ABG O2 Saturation ABG Base Excess ABG Hemoglobin Oxyhemoglobin Sodium Potassium Chloride Carbon Dioxide BUN Creatinine Glucose POC Glucose 127 H 163 H 116 H Lactic Acid Calcium AST ALT Troponin T Albumin LDL Cholesterol Direct Vancomycin Trough Crossmatch 12/15/19 12/15/19 12/15/19 04:10 05:30 05:30 RBC 2.97 L Hgb 9.4 L D Hct 28.3 L D MCV 95 H RDW 17.8 H Plt Count 101 L Lymph % (Auto) 5.2 L [place] % (Auto) Eos % (Auto) Lymph # 0.5 L Seg Neutrophils % 87.5 H Seg Neutrophils # 8.2 H PT INR ABG pH ABG pO2 71.3 L ABG HCO3 16.5 L ABG O2 Saturation ABG Base Excess -7.9 L ABG Hemoglobin 10.9 L Oxyhemoglobin 93.4 L Sodium Potassium Chloride Carbon Dioxide BUN Creatinine Glucose POC Glucose Lactic Acid Calcium AST ALT Troponin T Albumin LDL Cholesterol Direct Vancomycin Trough 23.6 H Crossmatch 12/15/19 12/15/19 12/15/19 05:30 12:35 17:24 RBC Hgb Hct MCV RDW Plt Count Lymph % (Auto) [place] % (Auto) Eos % (Auto) Lymph # Seg Neutrophils % Seg Neutrophils # PT INR ABG pH ABG pO2 ABG HCO3 ABG O2 Saturation ABG Base Excess ABG Hemoglobin Oxyhemoglobin Sodium Potassium Chloride 117.0 H Carbon Dioxide 14 L BUN 35 H Creatinine Glucose POC Glucose 120 H 155 H Lactic Acid Calcium 10.3 H AST ALT Troponin T Albumin LDL Cholesterol Direct Vancomycin Trough Crossmatch 12/16/19 12/16/19 12/16/19 04:30 05:38 06:30 RBC 3.04 L Hgb 9.6 L Hct 29.1 L MCV 96 H RDW 17.5 H Plt Count 105 L Lymph % (Auto) [place] % (Auto) Eos % (Auto) Lymph # Seg Neutrophils % Seg Neutrophils # PT INR ABG pH ABG pO2 146.9 H ABG HCO3 18.0 L ABG O2 Saturation ABG Base Excess -6.5 L ABG Hemoglobin 8.9 L Oxyhemoglobin Sodium Potassium Chloride Carbon Dioxide BUN Creatinine Glucose POC Glucose 128 H Lactic Acid Calcium AST ALT Troponin T Albumin LDL Cholesterol Direct Vancomycin Trough Crossmatch 12/16/19 12/16/19 12/17/19 12:10 17:52 04:40 RBC Hgb Hct MCV RDW Plt Count Lymph % (Auto) [place] % (Auto) Eos % (Auto) Lymph # Seg Neutrophils % Seg Neutrophils # PT INR ABG pH ABG pO2 109.1 H ABG HCO3 ABG O2 Saturation ABG Base Excess -4.6 L ABG Hemoglobin 10.9 L Oxyhemoglobin Sodium Potassium Chloride Carbon Dioxide BUN Creatinine Glucose POC Glucose 124 H 136 H Lactic Acid Calcium AST ALT Troponin T Albumin LDL Cholesterol Direct Vancomycin Trough Crossmatch 12/17/19 12/17/19 12/17/19 05:18 11:45 17:27 RBC Hgb Hct MCV RDW Plt Count Lymph % (Auto) [place] % (Auto) Eos % (Auto) Lymph # Seg Neutrophils % Seg Neutrophils # PT INR ABG pH ABG pO2 ABG HCO3 ABG O2 Saturation ABG Base Excess ABG Hemoglobin Oxyhemoglobin Sodium Potassium Chloride Carbon Dioxide BUN Creatinine Glucose POC Glucose 140 H 116 H 110 H Lactic Acid Calcium AST ALT Troponin T Albumin LDL Cholesterol Direct Vancomycin Trough Crossmatch 12/18/19 12/18/19 12/18/19 00:48 04:23 04:30 RBC 3.49 L Hgb 10.8 L Hct 32.8 L MCV RDW 17.9 H Plt Count 103 L Lymph % (Auto) [place] % (Auto) 8.4 H Eos % (Auto) 4.8 H Lymph # 1.0 L Seg Neutrophils % 73.0 H Seg Neutrophils # PT INR ABG pH ABG pO2 ABG HCO3 ABG O2 Saturation ABG Base Excess ABG Hemoglobin 10.0 L Oxyhemoglobin Sodium Potassium Chloride Carbon Dioxide BUN Creatinine Glucose POC Glucose 128 H Lactic Acid Calcium AST ALT Troponin T Albumin LDL Cholesterol Direct Vancomycin Trough Crossmatch 12/18/19 12/18/19 12/18/19 06:37 12:30 19:00 RBC Hgb Hct MCV RDW Plt Count Lymph % (Auto) [place] % (Auto) Eos % (Auto) Lymph # Seg Neutrophils % Seg Neutrophils # PT INR ABG pH ABG pO2 ABG HCO3 ABG O2 Saturation ABG Base Excess ABG Hemoglobin Oxyhemoglobin Sodium Potassium Chloride Carbon Dioxide BUN Creatinine Glucose POC Glucose 132 H 127 H 130 H Lactic Acid Calcium AST ALT Troponin T Albumin LDL Cholesterol Direct Vancomycin Trough Crossmatch 12/19/19 12/19/19 12/19/19 05:51 12:41 14:43 RBC Hgb Hct MCV RDW Plt Count Lymph % (Auto) [place] % (Auto) Eos % (Auto) Lymph # Seg Neutrophils % Seg Neutrophils # PT INR ABG pH ABG pO2 93.5 H ABG HCO3 26.1 H ABG O2 Saturation ABG Base Excess ABG Hemoglobin 9.9 L Oxyhemoglobin Sodium 147 H Potassium 3.5 L Chloride 114.3 H Carbon Dioxide 21 L D BUN 37 H Creatinine Glucose 119 H POC Glucose 123 H Lactic Acid Calcium 11.8 H AST ALT Troponin T Albumin LDL Cholesterol Direct Vancomycin Trough Crossmatch 12/20/19 12/20/19 04:19 12:58 RBC Hgb Hct MCV RDW Plt Count Lymph % (Auto) [place] % (Auto) Eos % (Auto) Lymph # Seg Neutrophils % Seg Neutrophils # PT INR ABG pH ABG pO2 ABG HCO3 27.0 H ABG O2 Saturation ABG Base Excess ABG Hemoglobin Oxyhemoglobin 94.2 L Sodium Potassium Chloride Carbon Dioxide BUN Creatinine Glucose POC Glucose 118 H Lactic Acid Calcium AST ALT Troponin T Albumin LDL Cholesterol Direct Vancomycin Trough Crossmatch Chest x-ray: image reviewed (stable to slightly improved bilateral infiltrates) Allied health notes reviewed: nursing
--- NOTE | 2019-12-20 17:35 | Progress Note ---
Assessment and Plan Assessment and plan: The high probability of a clinically significant, sudden or life threatening deterioration of the [] system(s) required my full and direct attention, intervention and personal management. The aggregate critical care time was [] minutes. This time is in addition to time spent performing reported procedures but includes the following: [x]x Data Review and interpretation [x] Patient assessment and monitoring of vital signs [x] Documentation [x] Medication orders and management - Patient Problems (1) Acute encephalopathy Current Visit: Yes Status: Acute Plan to address problem: Multifactorial secondary to sepsis on underlying dementia. Attempt to treat underlying etiology. Overall prognosis poor. Dementia has progressed. Overall global cognition unchanged. Remains poor poor global functioning remains intubated comfortable. (2) Acute respiratory failure Current Visit: Yes Status: Acute Plan to address problem: Patient at present remains intubated unable to wean. Recurrent aspiration bilateral pneumonia. Has been very difficult weaning process. Will attempt to treat bilateral pneumonia which at this point has most likely come from aspiration. Would be difficult to stop all aspiration in this patient. Patient on day 7 out of 10 of [place] (3) Bilateral pneumonia Current Visit: Yes Status: Acute Plan to address problem: Continue present antibiotic coverage. Follow-up culture and future culture data. Attempt to wean as tolerated. (4) Dementia Current Visit: Yes Status: Acute Plan to address problem: Patient with advanced dementia. Medications unlikely to prove any benefit at this particular time. Extremely poor functional status. Overall prognosis poor with attempt to treat underlying etiology and see how patient responds. (5) Septic shock Current Visit: Yes Status: Acute Plan to address problem: Resolving. Continue current antibiotics. Fever curve downtrending. (6) JULIA (acute kidney injury) Current Visit: No Status: Acute Plan to address problem: Patient with acute on most likely chronic renal insufficiency secondary to prerenal azotemia. (7) Aspiration pneumonia Current Visit: No Status: Acute Plan to address problem: Status post PEG tube placement was happening before and now after. Spoke with family about options. (8) Debility Current Visit: No Status: Acute Plan to address problem: Multifactorial sepsis bilateral pneumonia. History Interval history: No new events over p.m. severe sepsis. Patient intubated. Hospital course unremarkable over last night. No fever. Remains sedated comfortable. Hospitalist Physical - Constitutional Vitals: Temp Pulse Resp BP Pulse Ox 98.4 F 93 H 31 H 141/76 97 12/20/19 12:00 12/20/19 17:00 12/20/19 17:00 12/20/19 17:00 12/20/19 17:00 General appearance: Present: no acute distress, other (intubated and sedated) - Respiratory Respiratory: right: diminished - Cardiovascular Rhythm: regular - Extremities Extremities: no ischemia, pulses intact, pulses symmetrical Extremity abnormal: edema Peripheral Pulses: within normal limits - Abdominal General gastrointestinal: soft, distended, normal bowel sounds - Integumentary Integumentary: Present: clear, warm, dry Results - Labs CBC & Chem 7: 12/18/19 04:23 12/19/19 05:51 Labs: Laboratory Last Values WBC 7.3 K/mm3 (4.5-11.0) 12/18/19 04:23 RBC 3.49 M/mm3 (3.65-5.03) L 12/18/19 04:23 Hgb 10.8 gm/dl (11.8-15.2) L 12/18/19 04:23 Hct 32.8 % (35.5-45.6) L 12/18/19 04:23 MCV 94 fl (84-94) 12/18/19 04:23 MCH 31 pg (28-32) 12/18/19 04:23 MCHC 33 % (32-34) 12/18/19 04:23 RDW 17.9 % (13.2-15.2) H 12/18/19 04:23 Plt Count 103 K/mm3 (140-440) L 12/18/19 04:23 Lymph % (Auto) 13.6 % (13.4-35.0) 12/18/19 04:23 [place] % (Auto) 8.4 % (0.0-7.3) H 12/18/19 04:23 Eos % (Auto) 4.8 % (0.0-4.3) H 12/18/19 04:23 Baso % (Auto) 0.2 % (0.0-1.8) 12/18/19 04:23 Lymph # 1.0 K/mm3 (1.2-5.4) L 12/18/19 04:23 [place] # 0.6 K/mm3 (0.0-0.8) 12/18/19 04:23 Eos # 0.4 K/mm3 (0.0-0.4) 12/18/19 04:23 Baso # 0.0 K/mm3 (0.0-0.1) 12/18/19 04:23 Seg Neutrophils % 73.0 % (40.0-70.0) H 12/18/19 04:23 Seg Neutrophils # 5.3 K/mm3 (1.8-7.7) 12/18/19 04:23 PT 15.1 Sec. (12.2-14.9) H 12/12/19 05:00 INR 1.17 (0.87-1.13) H 12/12/19 05:00 APTT 28.0 Sec. (24.2-36.6) 12/12/19 05:00 ABG pH 7.410 pH Units (7.350-7.450) 12/20/19 04:19 ABG pCO2 43.6 mm Hg 12/20/19 04:19 ABG pO2 85.7 mm Hg (80.0-90.0) 12/20/19 04:19 ABG HCO3 27.0 mmol/L (20.0-26.0) H 12/20/19 04:19 ABG O2 Saturation 96.4 % (95.0-99.0) 12/20/19 04:19 ABG O2 Content 28.1 (0.0-44) 12/20/19 04:19 ABG Base Excess 1.8 mmol/L (-2.0-3.0) 12/20/19 04:19 ABG Hemoglobin TNR 12/20/19 04:19 ABG Carboxyhemoglobin 1.7 % (0.0-5.0) 12/20/19 04:19 ABG Methemoglobin 0.6 % (0.0-1.5) 12/20/19 04:19 VBG pH 7.320 (7.320-7.420) 12/12/19 05:00 Oxyhemoglobin 94.2 % (95.0-99.0) L 12/20/19 04:19 FiO2 25 % 12/20/19 04:19 Sodium 147 mmol/L (137-145) H 12/19/19 05:51 Potassium 3.5 mmol/L (3.6-5.0) L 12/19/19 05:51 Chloride 114.3 mmol/L (98-107) H 12/19/19 05:51 Carbon Dioxide 21 mmol/L (22-30) L D 12/19/19 05:51 Anion Gap 15 mmol/L 12/19/19 05:51 BUN 37 mg/dL (9-20) H 12/19/19 05:51 Creatinine 1.3 mg/dL (0.8-1.5) 12/19/19 05:51 Estimated GFR > 60 ml/min 12/19/19 05:51 BUN/Creatinine Ratio 28 % 12/19/19 05:51 Glucose 119 mg/dL (75-100) H 12/19/19 05:51 POC Glucose 118 (70-105) H 12/20/19 12:58 Lactic Acid 1.60 mmol/L (0.7-2.0) 12/13/19 04:56 Calcium 11.8 mg/dL (8.4-10.2) H 12/19/19 05:51 Magnesium 1.70 mg/dL (1.7-2.3) 12/20/19 16:54 Total Bilirubin 0.30 mg/dL (0.1-1.2) 12/12/19 05:00 AST 46 units/L (5-40) H 12/12/19 05:00 ALT 72 units/L (7-56) H 12/12/19 05:00 Alkaline Phosphatase 84 units/L (35-129) 12/12/19 05:00 Troponin T 0.080 ng/mL (0.00-0.029) H 12/12/19 05:00 Total Protein 6.4 g/dL (6.3-8.2) 12/12/19 05:00 Albumin 2.2 g/dL (3.9-5) L 12/12/19 05:00 Albumin/Globulin Ratio 0.5 % 12/12/19 05:00 Triglycerides 30 mg/dL (2-149) 12/12/19 05:00 Cholesterol 82 mg/dL (50-199) 12/12/19 05:00 LDL Cholesterol Direct 38 mg/dL (50-130) L 12/12/19 05:00 HDL Cholesterol 45 mg/dL (40-59) 12/12/19 05:00 Cholesterol/HDL Ratio 1.82 % 12/12/19 05:00 Urine Color Yellow (Yellow) 12/12/19 Unknown Urine Turbidity Cloudy (Clear) 12/12/19 Unknown Urine pH 5.0 (5.0-7.0) 12/12/19 Unknown Ur Specific [place] 1.014 (1.003-1.030) 12/12/19 Unknown Urine Protein <15 mg/dl mg/dL (Negative) 12/12/19 Unknown Urine Glucose (UA) Neg mg/dL (Negative) 12/12/19 Unknown Urine Ketones Neg mg/dL (Negative) 12/12/19 Unknown Urine Blood Neg (Negative) 12/12/19 Unknown Urine Nitrite Neg (Negative) 12/12/19 Unknown Urine Bilirubin Neg (Negative) 12/12/19 Unknown Urine Urobilinogen < 2.0 mg/dL (<2.0) 12/12/19 Unknown Ur Leukocyte Esterase Neg (Negative) 12/12/19 Unknown Urine WBC (Auto) 2.0 /HPF (0.0-6.0) 12/12/19 Unknown Urine RBC (Auto) 3.0 /HPF (0.0-6.0) 12/12/19 Unknown U Epithel Cells (Auto) 1.0 /HPF (0-13.0) 12/12/19 Unknown Urine Bacteria (Auto) 1+ /HPF (Negative) 12/12/19 Unknown Hyaline Casts 1 /LPF 12/12/19 Unknown Urine Mucus Few /HPF 12/12/19 Unknown Vancomycin Trough 23.6 ug/mL (5.0-20.0) H 12/15/19 05:30 Blood Type A POSITIVE 12/12/19 05:00 Antibody Screen Negative 12/12/19 05:00 Crossmatch See Detail 12/12/19 05:00 Power/IV: Voiding Method Condom Catheter IV Catheter Type [Left Upper Mid-line arm] IV Catheter Type [Right Hand] INT / Saline Lock IV Catheter Type [Right Chest] Triple Lumen Cath IV Catheter Type [Right Peripheral IV Antecubital] Active Medications - Current Medications Current Medications: Generic Name Dose Route Start Last Admin Trade Name Freq PRN Reason Stop Dose Admin Acetaminophen 650 mg 12/14/19 14:25 Tylenol PO Q6H PRN Pain MILD(1-3)/Fever >100.5/BRUSH Albuterol/Ipratropium 1 ampul 12/12/19 08:00 12/20/19 13:39 Duoneb *Not For Prn Use* IH 1 ampul Q6HRT AYUSH Administration Allopurinol 300 mg 12/12/19 10:00 12/20/19 10:13 Zyloprim PO 300 mg QDAY AYUSH Administration Lipase/Protease/Amylase 1 each 12/12/19 12:[address] 10,500 Unit FEEDTUBE PRN PRN For Clogged Feeding Tube Aspirin 81 mg 12/13/19 10:00 12/20/19 10:13 Baby Aspirin PO 81 mg QDAY AYUSH Administration Atorvastatin Calcium 40 mg 12/12/19 22:00 12/19/19 22:31 Lipitor PO 40 mg QHS AYUSH Administration Carvedilol 6.25 mg 12/19/19 22:00 12/20/19 10:13 Coreg PO 6.25 mg BID AYUSH Administration Cyanocobalamin 1,000 mcg 12/12/19 10:00 12/12/19 10:00 Vitamin B-12 IM 1,000 mcg QMONTH AYUSH Administration Folic Acid 1 mg 12/12/19 10:00 12/20/19 10:14 Folvite PO 1 mg DAILY AYUSH Administration Heparin Sodium (Porcine) 5,000 unit 12/12/19 14:00 12/20/19 13:34 Heparin SUB-Q 5,000 unit Q8HR AYUSH Administration Hydralazine HCl 5 mg 12/17/19 17:06 12/20/19 10:13 Apresoline IV 5 mg Q30MIN PRN Administration Hypertension Hydrophilic Ointment 1 applic 12/12/19 05:18 Vaseline Lip Therapy TP Q2HR PRN Dry Lips Norepinephrine 4 mg in 250 mls @ 7.5 mls/hr 12/12/19 06:00 12/15/19 01:00 Levophed Drip 4 Mg/Ns 250 Ml IV 0 mcg/min TITR AYUSH 0 mls/hr Titration Protocol 2 MCG/MIN Vasopressin 20 unit/ Sodium 101 mls @ 9.09 mls/hr 12/12/19 19:00 12/14/19 14:42 Chloride IV 0 units/min TITR AYUSH 0 mls/hr Titration Protocol 0.03 UNITS/MIN Lansoprazole 30 mg 12/14/19 15:00 12/20/19 10:13 Prevacid Solutab FEEDTUBE 30 mg QDAY AYUSH Administration Linezolid 600 mg 12/18/19 13:00 12/20/19 10:14 Zyvox PO 12/22/19 12:59 600 mg Q12HR AYUSH Administration Protocol Multi-Ingred Cream/Lotion/Oil/Oint 1 applic 12/12/19 05:18 Artificial Tears Ophth Oint OU Q4HR PRN Dry Eye(s) Multivitamins 5 ml 12/15/19 10:00 12/20/19 10:14 Centrum Liq PO 5 ml QDAY AYUSH Administration Ondansetron HCl 4 mg 12/12/19 07:52 Zofran IV Q8H PRN Nausea And Vomiting Oxycodone/Acetaminophen 1 tab 12/19/19 13:45 Percocet 5/325 PO Q4H PRN Pain, Moderate (4-6) Senna 8.8 mg 12/15/19 22:00 12/20/19 10:22 Senokot FEEDTUBE Not Given BID AYUSH Simple Syrup 15 ml 12/12/19 12:32 12/12/19 18:40 Simple Syrup FEEDTUBE 15 ml PRN PRN Administration Hypoglycemia Simple Syrup 30 ml 12/12/19 12:32 Simple Syrup FEEDTUBE PRN PRN Hypoglycemia Sodium Bicarbonate 325 mg 12/12/19 12:32 Sodium Bicarbonate FEEDTUBE PRN PRN For Clogged Feeding Tube Sodium Chloride 10 ml 12/12/19 10:00 12/20/19 10:15 Sodium Chloride Flush Syringe 10 Ml IV 10 ml BID AYUSH Administration Sodium Chloride 10 ml 12/12/19 07:52 12/12/19 21:38 Sodium Chloride Flush Syringe 10 Ml IV 10 ml PRN PRN Administration LINE FLUSH Nutrition/Malnutrition Assess - Dietary Evaluation Nutrition/Malnutrition Findings: Nutrition Notes Start: 12/12/19 12:10 Freq: Status: Active Protocol: Document 12/19/19 15:26 LM (Rec: 12/19/19 15:28 LM [email or web address]) Nutrition Notes Initial or Follow up Reassessment Current Diagnosis Acute Kidney Injury,CKD(stage I-IV),Sepsis,Hypertension, Respiratory Failure Other Pertinent Diagnosis hx CVA with dysphasia, PEG, dementia Current Diet Osmolite 1.5 at 50 ml/hr Labs/Tests Na 147 K 3.5 BUN 37 Pertinent Medications Reviewed Height 5 ft 8 in Weight 76.204 kg [place] Body Weight (kg) 70.00 BMI 25.5 Subjective/Other Information Per RN pt is tolerating TF at 50 ml/hr. Increased flush for hypernatremia. Percent of energy/protein needs met: 100%/100% Burn Absent Trauma Absent GI Symptoms None Current % PO Negligible Minimum of two criteria No Muscle Mass Mild Depletion (non-severe) #1 Nutrition Diagnosis Inadequate oral intake Diagnosis Progress(for reassessment Continues documentation) Is patient on ventilator? Yes Is Patient Ambulatory and/or Out of Bed No REE-([place]-confined to bed) 4471.653 Calculation Used for Recommendations [facility] Additional Notes Protein:61-152g (0.8-2g/kg) CKD, JULIA, and vent needs Fluid: 1 ml/kcal or per MD Nutrition Intervention Change Diet Order: TF Nutrition Support: Osmolite 1.5 at 50ml/hr Flush 250 ml q4h for hypernatremia Flush 170 ml q4h once hypernatremia resolves Kcal 1,800 Protein (gm) 75 Fluid (mL) 914 Goal #1 TF tolerance Goal #2 Meet at least 75% of energy and protein needs vi TF Anticipated Discharge Needs: TF Follow-Up By: 12/23/19 Additional Comments F/U for TF tolerance, Na
[2019-12-20] MEDS: SIMPLE SYRUP 15 ML FEEDTUBE PRN (18:36)
[2019-12-21] MEDS: oxyCODONE /ACETAMINOPHEN 5-325MG TAB PO PRN (01:08)
[2019-12-21] MEDS: IPRATROPIUM/ALBUTEROL SULFATE 3 ML AMPUL.NEB IH SCH ×4 (01:10→21:00)
--- NOTE | 2019-12-21 04:33 | XRay Report ---
CHEST 1 VIEW INDICATION: follow up respiratory failure. COMPARISON: 12/20/2019 FINDINGS: SUPPORT DEVICES: Endotracheal tube remains in good position HEART / MEDIASTINUM: No significant abnormality. LUNGS / PLEURA: Persistent diffuse interstitial pulmonary process with a small left pleural effusion No pneumothorax. ADDITIONAL FINDINGS: IMPRESSION: 1. Persistent diffuse pulmonary process with slight improvement aeration right midlung Signer Name: Hair Randall MD Signed: 12/21/2019 4:29 AM Workstation Name: [email or web address]
[2019-12-21] MEDS: HEPARIN 5,000 UNIT/1 ML VIAL SUB-Q SCH ×3 (06:44→22:04)
[2019-12-21] MEDS: LANSOPRAZOLE 30 MG SOLUTAB FEEDTUBE SCH (12:17)
[2019-12-21] MEDS: MULTIVITAMINS 5 ML ORAL LIQUID PO SCH (12:17)
[2019-12-21] MEDS: ASPIRIN 81 MG TAB CHEW PO SCH (12:17)
[2019-12-21] MEDS: FOLIC ACID 1 MG TAB PO SCH (12:17)
[2019-12-21] MEDS: carvediloL 6.25 MG TAB PO SCH ×2 (12:17→22:03)
[2019-12-21] MEDS: allopurinoL 300 MG TAB PO SCH (12:17)
[2019-12-21] MEDS: LINEZOLID 600 MG TAB PO SCH ×2 (12:18→22:03)
[2019-12-21] MEDS: SENNOSIDES ORAL LIQD 8.8 MG/5 ML ORAL LIQD FEEDTUBE SCH ×2 (12:18→22:04)
--- NOTE | 2019-12-21 13:30 | Progress Note ---
Assessment and Plan Assessment and plan: The high probability of a clinically significant, sudden or life threatening deterioration of the [] system(s) required my full and direct attention, intervention and personal management. The aggregate critical care time was [] minutes. This time is in addition to time spent performing reported procedures but includes the following: [x]x Data Review and interpretation [x] Patient assessment and monitoring of vital signs [x] Documentation [x] Medication orders and management - Patient Problems (1) Acute encephalopathy Current Visit: Yes Status: Acute Plan to address problem: Multifactorial secondary to sepsis on underlying dementia. Prognosis remains guarded. Dementia has progressed. Overall global cognition unchanged. Remains poor poor global functioning remains intubated comfortable. (2) Acute respiratory failure Current Visit: Yes Status: Acute Plan to address problem: Patient at present remains intubated unable to wean. Recurrent aspiration bilateral pneumonia. Has been very difficult weaning process. Very high risk for aspiration.. Would be difficult to stop all aspiration in this patient. Patient on day 8 out of 10 of Line[place] (3) Bilateral pneumonia Current Visit: Yes Status: Acute Plan to address problem: Continue present antibiotic coverage. Follow-up culture and future culture data. Attempt to wean as tolerated. No fever Zyvox. (4) Dementia Current Visit: Yes Status: Acute Plan to address problem: Most likely worsening advanced dementia. Prognosis remains guarded. (5) Septic shock Current Visit: Yes Status: Acute Plan to address problem: Resolving. Continue current antibiotics. Fever curve downtrending. (6) JULIA (acute kidney injury) Current Visit: No Status: Acute Plan to address problem: Patient with acute on most likely chronic renal insufficiency secondary to prerenal azotemia. (7) Aspiration pneumonia Current Visit: No Status: Acute Plan to address problem: Status post PEG tube placement was happening before and now after. Spoke with family about options. (8) Debility Current Visit: No Status: Acute Plan to address problem: Multifactorial sepsis bilateral pneumonia. History Interval history: Patient no changes over p.m. remains intubated nonverbal. No new concerns over p.m. Hospitalist Physical - Constitutional Vitals: Temp Pulse Resp BP Pulse Ox 97.8 F 82 27 H 161/86 96 12/21/19 03:59 12/21/19 12:17 12/21/19 12:00 12/21/19 12:17 12/21/19 12:00 General appearance: Present: no acute distress, other (intubated and sedated) - Respiratory Respiratory effort: normal Respiratory: bilateral: CTA - Cardiovascular Rhythm: regular - Extremities Extremities: no ischemia, pulses intact, pulses symmetrical, No edema, normal temperature, normal color Peripheral Pulses: within normal limits - Abdominal General gastrointestinal: soft, non-tender, non-distended, hypoactive bowel s ounds, no hepatomegaly, no splenomegaly, no mass - Integumentary Integumentary: Present: clear, warm, dry Results - Labs CBC & Chem 7: 12/18/19 04:23 12/19/19 05:51 Labs: Laboratory Last Values WBC 7.3 K/mm3 (4.5-11.0) 12/18/19 04:23 RBC 3.49 M/mm3 (3.65-5.03) L 12/18/19 04:23 Hgb 10.8 gm/dl (11.8-15.2) L 12/18/19 04:23 Hct 32.8 % (35.5-45.6) L 12/18/19 04:23 MCV 94 fl (84-94) 12/18/19 04:23 MCH 31 pg (28-32) 12/18/19 04:23 MCHC 33 % (32-34) 12/18/19 04:23 RDW 17.9 % (13.2-15.2) H 12/18/19 04:23 Plt Count 103 K/mm3 (140-440) L 12/18/19 04:23 Lymph % (Auto) 13.6 % (13.4-35.0) 12/18/19 04:23 [place] % (Auto) 8.4 % (0.0-7.3) H 12/18/19 04:23 Eos % (Auto) 4.8 % (0.0-4.3) H 12/18/19 04:23 Baso % (Auto) 0.2 % (0.0-1.8) 12/18/19 04:23 Lymph # 1.0 K/mm3 (1.2-5.4) L 12/18/19 04:23 [place] # 0.6 K/mm3 (0.0-0.8) 12/18/19 04:23 Eos # 0.4 K/mm3 (0.0-0.4) 12/18/19 04:23 Baso # 0.0 K/mm3 (0.0-0.1) 12/18/19 04:23 Seg Neutrophils % 73.0 % (40.0-70.0) H 12/18/19 04:23 Seg Neutrophils # 5.3 K/mm3 (1.8-7.7) 12/18/19 04:23 PT 15.1 Sec. (12.2-14.9) H 12/12/19 05:00 INR 1.17 (0.87-1.13) H 12/12/19 05:00 APTT 28.0 Sec. (24.2-36.6) 12/12/19 05:00 ABG pH 7.410 pH Units (7.350-7.450) 12/20/19 04:19 ABG pCO2 43.6 mm Hg 12/20/19 04:19 ABG pO2 85.7 mm Hg (80.0-90.0) 12/20/19 04:19 ABG HCO3 27.0 mmol/L (20.0-26.0) H 12/20/19 04:19 ABG O2 Saturation 96.4 % (95.0-99.0) 12/20/19 04:19 ABG O2 Content 28.1 (0.0-44) 12/20/19 04:19 ABG Base Excess 1.8 mmol/L (-2.0-3.0) 12/20/19 04:19 ABG Hemoglobin TNR 12/20/19 04:19 ABG Carboxyhemoglobin 1.7 % (0.0-5.0) 12/20/19 04:19 ABG Methemoglobin 0.6 % (0.0-1.5) 12/20/19 04:19 VBG pH 7.320 (7.320-7.420) 12/12/19 05:00 Oxyhemoglobin 94.2 % (95.0-99.0) L 12/20/19 04:19 FiO2 25 % 12/20/19 04:19 Sodium 147 mmol/L (137-145) H 12/19/19 05:51 Potassium 3.5 mmol/L (3.6-5.0) L 12/19/19 05:51 Chloride 114.3 mmol/L (98-107) H 12/19/19 05:51 Carbon Dioxide 21 mmol/L (22-30) L D 12/19/19 05:51 Anion Gap 15 mmol/L 12/19/19 05:51 BUN 37 mg/dL (9-20) H 12/19/19 05:51 Creatinine 1.3 mg/dL (0.8-1.5) 12/19/19 05:51 Estimated GFR > 60 ml/min 12/19/19 05:51 BUN/Creatinine Ratio 28 % 12/19/19 05:51 Glucose 119 mg/dL (75-100) H 12/19/19 05:51 POC Glucose 120 (70-105) H 12/21/19 05:22 Lactic Acid 1.60 mmol/L (0.7-2.0) 12/13/19 04:56 Calcium 11.8 mg/dL (8.4-10.2) H 12/19/19 05:51 Magnesium 1.70 mg/dL (1.7-2.3) 12/20/19 16:54 Total Bilirubin 0.30 mg/dL (0.1-1.2) 12/12/19 05:00 AST 46 units/L (5-40) H 12/12/19 05:00 ALT 72 units/L (7-56) H 12/12/19 05:00 Alkaline Phosphatase 84 units/L (35-129) 12/12/19 05:00 Troponin T 0.080 ng/mL (0.00-0.029) H 12/12/19 05:00 Total Protein 6.4 g/dL (6.3-8.2) 12/12/19 05:00 Albumin 2.2 g/dL (3.9-5) L 12/12/19 05:00 Albumin/Globulin Ratio 0.5 % 12/12/19 05:00 Triglycerides 30 mg/dL (2-149) 12/12/19 05:00 Cholesterol 82 mg/dL (50-199) 12/12/19 05:00 LDL Cholesterol Direct 38 mg/dL (50-130) L 12/12/19 05:00 HDL Cholesterol 45 mg/dL (40-59) 12/12/19 05:00 Cholesterol/HDL Ratio 1.82 % 12/12/19 05:00 Urine Color Yellow (Yellow) 12/12/19 Unknown Urine Turbidity Cloudy (Clear) 12/12/19 Unknown Urine pH 5.0 (5.0-7.0) 12/12/19 Unknown Ur Specific [place] 1.014 (1.003-1.030) 12/12/19 Unknown Urine Protein <15 mg/dl mg/dL (Negative) 12/12/19 Unknown Urine Glucose (UA) Neg mg/dL (Negative) 12/12/19 Unknown Urine Ketones Neg mg/dL (Negative) 12/12/19 Unknown Urine Blood Neg (Negative) 12/12/19 Unknown Urine Nitrite Neg (Negative) 12/12/19 Unknown Urine Bilirubin Neg (Negative) 12/12/19 Unknown Urine Urobilinogen < 2.0 mg/dL (<2.0) 12/12/19 Unknown Ur Leukocyte Esterase Neg (Negative) 12/12/19 Unknown Urine WBC (Auto) 2.0 /HPF (0.0-6.0) 12/12/19 Unknown Urine RBC (Auto) 3.0 /HPF (0.0-6.0) 12/12/19 Unknown U Epithel Cells (Auto) 1.0 /HPF (0-13.0) 12/12/19 Unknown Urine Bacteria (Auto) 1+ /HPF (Negative) 12/12/19 Unknown Hyaline Casts 1 /LPF 12/12/19 Unknown Urine Mucus Few /HPF 12/12/19 Unknown Vancomycin Trough 23.6 ug/mL (5.0-20.0) H 12/15/19 05:30 Blood Type A POSITIVE 12/12/19 05:00 Antibody Screen Negative 12/12/19 05:00 Crossmatch See Detail 12/12/19 05:00 Power/IV: Voiding Method Condom Catheter IV Catheter Type [Left Upper Mid-line arm] IV Catheter Type [Right Hand] INT / Saline Lock IV Catheter Type [Right Chest] Triple Lumen Cath IV Catheter Type [Right Peripheral IV Antecubital] Active Medications - Current Medications Current Medications: Generic Name Dose Route Start Last Admin Trade Name Freq PRN Reason Stop Dose Admin Acetaminophen 650 mg 12/14/19 14:25 Tylenol PO Q6H PRN Pain MILD(1-3)/Fever >100.5/BRUSH Albuterol/Ipratropium 1 ampul 12/12/19 08:00 12/21/19 08:17 Duoneb *Not For Prn Use* IH 1 ampul Q6HRT AYUSH Administration Allopurinol 300 mg 12/12/19 10:00 12/21/19 12:17 Zyloprim PO 300 mg QDAY AYUSH Administration Lipase/Protease/Amylase 1 each 12/12/19 12:32 Pancreaze 10,500 Unit FEEDTUBE PRN PRN For Clogged Feeding Tube Aspirin 81 mg 12/13/19 10:00 12/21/19 12:17 Baby Aspirin PO 81 mg QDAY AYUSH Administration Atorvastatin Calcium 40 mg 12/12/19 22:00 12/20/19 22:12 Lipitor PO 40 mg QHS AYUSH Administration Carvedilol 6.25 mg 12/19/19 22:00 12/21/19 12:17 Coreg PO 6.25 mg BID AYUSH Administration Cyanocobalamin 1,000 mcg 12/12/19 10:00 12/12/19 10:00 Vitamin B-12 IM 1,000 mcg QMONTH AYUSH Administration Folic Acid 1 mg 12/12/19 10:00 12/21/19 12:17 Folvite PO 1 mg DAILY AYUSH Administration Heparin Sodium (Porcine) 5,000 unit 12/12/19 14:00 12/21/19 06:44 Heparin SUB-Q 5,000 unit Q8HR AYUSH Administration Hydralazine HCl 5 mg 12/17/19 17:06 12/20/19 10:13 Apresoline IV 5 mg Q30MIN PRN Administration Hypertension Hydrophilic Ointment 1 applic 12/12/19 05:18 Vaseline Lip Therapy TP Q2HR PRN Dry Lips Norepinephrine 4 mg in 250 mls @ 7.5 mls/hr 12/12/19 06:00 12/15/19 01:00 Levophed Drip 4 Mg/Ns 250 Ml IV 0 mcg/min TITR AYUSH 0 mls/hr Titration Protocol 2 MCG/MIN Vasopressin 20 unit/ Sodium 101 mls @ 9.09 mls/hr 12/12/19 19:00 12/14/19 14:42 Chloride IV 0 units/min TITR AYUSH 0 mls/hr Titration Protocol 0.03 UNITS/MIN Lansoprazole 30 mg 12/14/19 15:00 12/21/19 12:17 Prevacid Solutab FEEDTUBE 30 mg QDAY AYUSH Administration Linezolid 600 mg 12/18/19 13:00 12/21/19 12:18 Zyvox PO 12/22/19 12:59 600 mg Q12HR AYUSH Administration Protocol Multi-Ingred Cream/Lotion/Oil/Oint 1 applic 12/12/19 05:18 Artificial Tears Ophth Oint OU Q4HR PRN Dry Eye(s) Multivitamins 5 ml 12/15/19 10:00 12/21/19 12:17 Centrum Liq PO 5 ml QDAY AYUSH Administration Ondansetron HCl 4 mg 12/12/19 07:52 Zofran IV Q8H PRN Nausea And Vomiting Oxycodone/Acetaminophen 1 tab 12/19/19 13:45 12/21/19 01:08 Percocet 5/325 PO 1 tab Q4H PRN Administration Pain, Moderate (4-6) Senna 8.8 mg 12/15/19 22:00 12/21/19 12:18 Senokot FEEDTUBE 8.8 mg BID AYUSH Administration Simple Syrup 15 ml 12/12/19 12:32 12/20/19 18:36 Simple Syrup FEEDTUBE 15 ml PRN PRN Administration Hypoglycemia Simple Syrup 30 ml 12/12/19 12:32 Simple Syrup FEEDTUBE PRN PRN Hypoglycemia Sodium Bicarbonate 325 mg 12/12/19 12:32 Sodium Bicarbonate FEEDTUBE PRN PRN For Clogged Feeding Tube Sodium Chloride 10 ml 12/12/19 10:00 12/21/19 12:17 Sodium Chloride Flush Syringe 10 Ml IV 10 ml BID AYUSH Administration Sodium Chloride 10 ml 12/12/19 07:52 12/12/19 21:38 Sodium Chloride Flush Syringe 10 Ml IV 10 ml PRN PRN Administration LINE FLUSH Nutrition/Malnutrition Assess - Dietary Evaluation Nutrition/Malnutrition Findings: Nutrition Notes Start: 12/12/19 12:10 Freq: Status: Active Protocol: Document 12/19/19 15:26 LM (Rec: 12/19/19 15:28 LM [email or web address]) Nutrition Notes Initial or Follow up Reassessment Current Diagnosis Acute Kidney Injury,CKD(stage I-IV),Sepsis,Hypertension, Respiratory Failure Other Pertinent Diagnosis hx CVA with dysphasia, PEG, dementia Current Diet Osmolite 1.5 at 50 ml/hr Labs/Tests Na 147 K 3.5 BUN 37 Pertinent Medications Reviewed Height 5 ft 8 in Weight 76.204 kg [place] Body Weight (kg) 70.00 BMI 25.5 Subjective/Other Information Per RN pt is tolerating TF at 50 ml/hr. Increased flush for hypernatremia. Percent of energy/protein needs met: 100%/100% Burn Absent Trauma Absent GI Symptoms None Current % PO Negligible Minimum of two criteria No Muscle Mass Mild Depletion (non-severe) #1 Nutrition Diagnosis Inadequate oral intake Diagnosis Progress(for reassessment Continues documentation) Is patient on ventilator? Yes Is Patient Ambulatory and/or Out of Bed No REE-([facility]-confined to bed) [phone] Calculation Used for Recommendations [facility] Additional Notes Protein:61-152g (0.8-2g/kg) CKD, JULIA, and vent needs Fluid: 1 ml/kcal or per MD Nutrition Intervention Change Diet Order: TF Nutrition Support: Osmolite 1.5 at 50ml/hr Flush 250 ml q4h for hypernatremia Flush 170 ml q4h once hypernatremia resolves Kcal 1,800 Protein (gm) 75 Fluid (mL) 914 Goal #1 TF tolerance Goal #2 Meet at least 75% of energy and protein needs vi TF Anticipated Discharge Needs: TF Follow-Up By: 12/23/19 Additional Comments F/U for TF tolerance, Na
--- NOTE | 2019-12-21 16:33 | Progress Note ---
Assessment and Plan Severe Sepsis with Shock Pneumonia Acute hypoxic respiratory failure on MVS Chronic kidney disease Anemia Thrombocytopenia CHF (EF 45-50% on 10/2019) CVA with aphasia Dementia Oropharyngeal dysphagia s/p PEG - continue daytime SBT's (Psupp still at 15 cm H2O - wean to 10 as tolerated) - continue Percocet prn for moderate to severe pain - continue Coreg at 6.25 mg bid re: HTN - continue to rest on set rate of 12/min - Magnesium level WNL - prn vasopressor support for target MAP > 65 mmHg - Continue with MVS, Lung protective strategies, monitor airway pressures - VAP bundle addressed (continue aspiration precautions, HOB>40) - Daily SAT's and assessment for readiness for SBT - Titrate sedation for RAAS 0 to -1 - VTE prophylaxis - Stress ulcer prophylaxis - continue enteric nutrition - continue glycemic control, with target blood glucose 140-180 mg/dL while critically ill. Avoid hypoglycemia - Wean supplemental oxygen for target O2 sat's > 90% - Adjust minute ventilation for better gas exchange - ABG and CXR prn - Follow cultures and adjust antibiotic therapy for SAMMIE and culture results - Avoid nephrotoxins, adjust all medications for GFR and CrCL - continue bronchodilators with pulmonary hygiene per RT - continue to avoid benzodiazepines to reduce the possibility of delirium - prn analgesia per CPOT score - Maintenance of sleep-wake cycle, avoid delirium - PT/OT/ROM exercises - continue mobility protocol and skin assessment per protocol for pressure ulcer prevention - Monitor hemodynamics closely - continue other care per attending / other consultants .... care plan discussed at length with daughter in room. CONDITION: CRITICAL PROGNOSIS: GUARDED CODE STATUS: FULL CODE The high probability of a clinically significant, sudden or life-threatening deterioration of the [respiratory, cardiovascular] system(s) required my full and direct attention, intervention and personal management. The aggregate critical care time was [33] minutes without overlap. Time includes spent on; [x] Data Review and interpretation [x] Patient assessment and monitoring of vital signs [x] Documentation [x] Medication orders and management Subjective Date of service: 12/21/19 Principal diagnosis: Severe Sepsis with Shock; Pneumonia; Ac hypoxemic respfailure; CKD Interval history: Patient is seen today for: Severe Sepsis with Shock; Pneumonia; Acute hypoxic r espiratory failure on MVS; Chronic kidney disease; Anemia; Thrombocytopenia; CHF (EF 45-50% on 10/2019); CVA with aphasia; Dementia; Oropharyngeal dysphagia s/p PEG Seen and examined at bedside; 24hour events reviewed; nursing and respiratory care staff consulted; no adverse overnight events reported to me; resting peacefully in bed; not weaned earlier; just placed on SABT and tolerating well so far; denies chest pain; No N/V/F/C Objective Vital Signs - 12hr 12/21/19 12/21/19 12/21/19 05:00 05:19 06:00 Temperature Pulse Rate 81 80 77 Pulse Rate [ Anterior Bilateral Throughout] Pulse Rate [ From Monitor] Respiratory 22 19 Rate Respiratory Rate [Anterior Bilateral Throughout] Blood Pressure 132/71 132/71 135/80 O2 Sat by Pulse 98 99 99 Oximetry 12/21/19 12/21/19 12/21/19 07:00 08:00 09:00 Temperature 95.9 F L Pulse Rate 71 76 74 Pulse Rate [ 73 Anterior Bilateral Throughout] Pulse Rate [ 70 From Monitor] Respiratory 15 26 H 17 Rate Respiratory 20 Rate [Anterior Bilateral Throughout] Blood Pressure 135/80 140/74 153/87 O2 Sat by Pulse 99 99 100 Oximetry 12/21/19 12/21/19 12/21/19 10:00 11:00 12:00 Temperature 96.8 F L Pulse Rate 74 79 77 Pulse Rate [ Anterior Bilateral Throughout] Pulse Rate [ 83 From Monitor] Respiratory 13 13 22 Rate Respiratory Rate [Anterior Bilateral Throughout] Blood Pressure 152/77 152/77 147/79 O2 Sat by Pulse 100 98 99 Oximetry 12/21/19 12/21/19 12/21/19 12:17 13:00 14:00 Temperature Pulse Rate 82 77 76 Pulse Rate [ Anterior Bilateral Throughout] Pulse Rate [ From Monitor] Respiratory 20 13 Rate Respiratory Rate [Anterior Bilateral Throughout] Blood Pressure 161/86 147/79 150/80 O2 Sat by Pulse 98 99 Oximetry 12/21/19 12/21/19 12/21/19 15:00 15:27 16:00 Temperature Pulse Rate 76 76 74 Pulse Rate [ Anterior Bilateral Throughout] Pulse Rate [ 78 From Monitor] Respiratory 20 20 Rate Respiratory Rate [Anterior Bilateral Throughout] Blood Pressure 145/78 155/73 O2 Sat by Pulse 98 99 Oximetry Constitutional: no acute distress, other (elderly and chronically ill looking, atraumatic, normocephalic) Eyes: non-icteric, other (orally intubated ETT at 23cm, no patient-ventilator dys-synchrony) ENT: oropharynx moist, other (ETT 23 cm ELISEO) Neck: supple, no JVD Effort: mildly labored Ascultation: Bilateral: diminished breath sounds, rhonchi Percussion: Bilateral: not dull Cardiovascular: regular rate and rhythm, other (S1,S2, no murmurs) Gastrointestinal: normoactive bowel sounds, soft, non-tender, non-distended, other (PEG in place) Integumentary: normal Extremities: no cyanosis, no edema, pulses normal, no ischemia or petechiae Neurologic: non-focal exam (grossly), pupils equal and round, other (somnolent; weak) Psychiatric: mood appropriate, affect normal CBC and BMP: 12/18/19 04:23 12/19/19 05:51 ABG, PT/INR, D-dimer: ABG ABG pH 7.410 pH Units (7.350-7.450) 12/20/19 04:19 ABG pCO2 43.6 mm Hg 12/20/19 04:19 ABG pO2 85.7 mm Hg (80.0-90.0) 12/20/19 04:19 ABG O2 Saturation 96.4 % (95.0-99.0) 12/20/19 04:19 PT/INR, D-dimer PT 15.1 Sec. (12.2-14.9) H 12/12/19 05:00 INR 1.17 (0.87-1.13) H 12/12/19 05:00 Abnormal lab findings: Abnormal Labs 12/12/19 12/12/19 12/12/19 04:35 05:00 05:00 RBC 2.39 L Hgb 7.7 L Hct 23.1 L MCV 97 H RDW 18.8 H Plt Count Lymph % (Auto) 9.9 L [place] % (Auto) Eos % (Auto) Lymph # 0.5 L Seg Neutrophils % 86.5 H Seg Neutrophils # PT INR ABG pH ABG pO2 ABG HCO3 ABG O2 Saturation ABG Base Excess ABG Hemoglobin Oxyhemoglobin Sodium Potassium Chloride Carbon Dioxide 19 L BUN 51 H Creatinine 1.9 H Glucose 117 H POC Glucose 129 H Lactic Acid Calcium AST 46 H ALT 72 H Troponin T 0.080 H Albumin 2.2 L LDL Cholesterol Direct 38 L Vancomycin Trough Crossmatch 12/12/19 12/12/19 12/12/19 05:00 05:00 05:00 RBC Hgb Hct MCV RDW Plt Count Lymph % (Auto) [place] % (Auto) Eos % (Auto) Lymph # Seg Neutrophils % Seg Neutrophils # PT 15.1 H INR 1.17 H ABG pH 7.320 L ABG pO2 95.6 H ABG HCO3 18.2 L ABG O2 Saturation 99.5 H ABG Base Excess -7.2 L ABG Hemoglobin 7.3 L Oxyhemoglobin 94.9 L Sodium Potassium Chloride Carbon Dioxide BUN Creatinine Glucose POC Glucose Lactic Acid 7.90 H* Calcium AST ALT Troponin T Albumin LDL Cholesterol Direct Vancomycin Trough Crossmatch 12/12/19 12/12/19 12/12/19 05:00 07:04 08:10 RBC Hgb Hct MCV RDW Plt Count Lymph % (Auto) [place] % (Auto) Eos % (Auto) Lymph # Seg Neutrophils % Seg Neutrophils # PT INR ABG pH ABG pO2 ABG HCO3 ABG O2 Saturation ABG Base Excess ABG Hemoglobin Oxyhemoglobin Sodium Potassium Chloride Carbon Dioxide BUN Creatinine Glucose POC Glucose Lactic Acid 7.30 H* 6.40 H* Calcium AST ALT Troponin T Albumin LDL Cholesterol Direct Vancomycin Trough Crossmatch See Detail 12/12/19 12/12/19 12/12/19 15:01 18:48 Unknown RBC Hgb Hct MCV RDW Plt Count Lymph % (Auto) [place] % (Auto) Eos % (Auto) Lymph # Seg Neutrophils % Seg Neutrophils # PT INR ABG pH ABG pO2 ABG HCO3 ABG O2 Saturation ABG Base Excess ABG Hemoglobin Oxyhemoglobin Sodium Potassium Chloride Carbon Dioxide BUN Creatinine Glucose POC Glucose 62 L Lactic Acid 2.90 H* 4.30 H* Calcium AST ALT Troponin T Albumin LDL Cholesterol Direct Vancomycin Trough Crossmatch 12/13/19 12/13/19 12/13/19 04:56 04:56 05:40 RBC 2.24 L Hgb 7.1 L Hct 21.6 L MCV 96 H RDW 19.9 H Plt Count 135 L Lymph % (Auto) 11.6 L [place] % (Auto) Eos % (Auto) Lymph # 1.1 L Seg Neutrophils % 79.2 H Seg Neutrophils # 7.8 H PT INR ABG pH ABG pO2 ABG HCO3 17.3 L ABG O2 Saturation ABG Base Excess -7.2 L ABG Hemoglobin 7.8 L Oxyhemoglobin Sodium Potassium Chloride 111.8 H Carbon Dioxide 16 L BUN 39 H Creatinine 1.6 H Glucose 101 H POC Glucose Lactic Acid Calcium AST ALT Troponin T Albumin LDL Cholesterol Direct Vancomycin Trough Crossmatch 12/13/19 12/13/19 12/14/19 18:05 23:24 04:22 RBC Hgb Hct MCV RDW Plt Count Lymph % (Auto) [place] % (Auto) Eos % (Auto) Lymph # Seg Neutrophils % Seg Neutrophils # PT INR ABG pH ABG pO2 156.5 H ABG HCO3 17.3 L ABG O2 Saturation ABG Base Excess -7.6 L ABG Hemoglobin 5.5 L Oxyhemoglobin Sodium Potassium Chloride Carbon Dioxide BUN Creatinine Glucose POC Glucose 165 H 110 H Lactic Acid Calcium AST ALT Troponin T Albumin LDL Cholesterol Direct Vancomycin Trough Crossmatch 12/14/19 12/14/19 12/14/19 06:18 06:45 06:45 RBC 1.98 L Hgb 6.3 L Hct 19.4 L* MCV 98 H RDW 20.3 H Plt Count 103 L Lymph % (Auto) 9.7 L [place] % (Auto) Eos % (Auto) Lymph # 0.9 L Seg Neutrophils % 81.4 H Seg Neutrophils # 7.8 H PT INR ABG pH ABG pO2 ABG HCO3 ABG O2 Saturation ABG Base Excess ABG Hemoglobin Oxyhemoglobin Sodium Potassium Chloride 115.3 H Carbon Dioxide 17 L BUN 38 H Creatinine 1.7 H Glucose 117 H POC Glucose 138 H Lactic Acid Calcium AST ALT Troponin T Albumin LDL Cholesterol Direct Vancomycin Trough Crossmatch 12/14/19 12/14/19 12/14/19 12:54 17:35 23:35 RBC Hgb Hct MCV RDW Plt Count Lymph % (Auto) [place] % (Auto) Eos % (Auto) Lymph # Seg Neutrophils % Seg Neutrophils # PT INR ABG pH ABG pO2 ABG HCO3 ABG O2 Saturation ABG Base Excess ABG Hemoglobin Oxyhemoglobin Sodium Potassium Chloride Carbon Dioxide BUN Creatinine Glucose POC Glucose 127 H 163 H 116 H Lactic Acid Calcium AST ALT Troponin T Albumin LDL Cholesterol Direct Vancomycin Trough Crossmatch 12/15/19 12/15/19 12/15/19 04:10 05:30 05:30 RBC 2.97 L Hgb 9.4 L D Hct 28.3 L D MCV 95 H RDW 17.8 H Plt Count 101 L Lymph % (Auto) 5.2 L [place] % (Auto) Eos % (Auto) Lymph # 0.5 L Seg Neutrophils % 87.5 H Seg Neutrophils # 8.2 H PT INR ABG pH ABG pO2 71.3 L ABG HCO3 16.5 L ABG O2 Saturation ABG Base Excess -7.9 L ABG Hemoglobin 10.9 L Oxyhemoglobin 93.4 L Sodium Potassium Chloride Carbon Dioxide BUN Creatinine Glucose POC Glucose Lactic Acid Calcium AST ALT Troponin T Albumin LDL Cholesterol Direct Vancomycin Trough 23.6 H Crossmatch 12/15/19 12/15/19 12/15/19 05:30 12:35 17:24 RBC Hgb Hct MCV RDW Plt Count Lymph % (Auto) [place] % (Auto) Eos % (Auto) Lymph # Seg Neutrophils % Seg Neutrophils # PT INR ABG pH ABG pO2 ABG HCO3 ABG O2 Saturation ABG Base Excess ABG Hemoglobin Oxyhemoglobin Sodium Potassium Chloride 117.0 H Carbon Dioxide 14 L BUN 35 H Creatinine Glucose POC Glucose 120 H 155 H Lactic Acid Calcium 10.3 H AST ALT Troponin T Albumin LDL Cholesterol Direct Vancomycin Trough Crossmatch 12/16/19 12/16/19 12/16/19 04:30 05:38 06:30 RBC 3.04 L Hgb 9.6 L Hct 29.1 L MCV 96 H RDW 17.5 H Plt Count 105 L Lymph % (Auto) [place] % (Auto) Eos % (Auto) Lymph # Seg Neutrophils % Seg Neutrophils # PT INR ABG pH ABG pO2 146.9 H ABG HCO3 18.0 L ABG O2 Saturation ABG Base Excess -6.5 L ABG Hemoglobin 8.9 L Oxyhemoglobin Sodium Potassium Chloride Carbon Dioxide BUN Creatinine Glucose POC Glucose 128 H Lactic Acid Calcium AST ALT Troponin T Albumin LDL Cholesterol Direct Vancomycin Trough Crossmatch 12/16/19 12/16/19 12/17/19 12:10 17:52 04:40 RBC Hgb Hct MCV RDW Plt Count Lymph % (Auto) [place] % (Auto) Eos % (Auto) Lymph # Seg Neutrophils % Seg Neutrophils # PT INR ABG pH ABG pO2 109.1 H ABG HCO3 ABG O2 Saturation ABG Base Excess -4.6 L ABG Hemoglobin 10.9 L Oxyhemoglobin Sodium Potassium Chloride Carbon Dioxide BUN Creatinine Glucose POC Glucose 124 H 136 H Lactic Acid Calcium AST ALT Troponin T Albumin LDL Cholesterol Direct Vancomycin Trough Crossmatch 12/17/19 12/17/19 12/17/19 05:18 11:45 17:27 RBC Hgb Hct MCV RDW Plt Count Lymph % (Auto) [place] % (Auto) Eos % (Auto) Lymph # Seg Neutrophils % Seg Neutrophils # PT INR ABG pH ABG pO2 ABG HCO3 ABG O2 Saturation ABG Base Excess ABG Hemoglobin Oxyhemoglobin Sodium Potassium Chloride Carbon Dioxide BUN Creatinine Glucose POC Glucose 140 H 116 H 110 H Lactic Acid Calcium AST ALT Troponin T Albumin LDL Cholesterol Direct Vancomycin Trough Crossmatch 12/18/19 12/18/19 12/18/19 00:48 04:23 04:30 RBC 3.49 L Hgb 10.8 L Hct 32.8 L MCV RDW 17.9 H Plt Count 103 L Lymph % (Auto) [place] % (Auto) 8.4 H Eos % (Auto) 4.8 H Lymph # 1.0 L Seg Neutrophils % 73.0 H Seg Neutrophils # PT INR ABG pH ABG pO2 ABG HCO3 ABG O2 Saturation ABG Base Excess ABG Hemoglobin 10.0 L Oxyhemoglobin Sodium Potassium Chloride Carbon Dioxide BUN Creatinine Glucose POC Glucose 128 H Lactic Acid Calcium AST ALT Troponin T Albumin LDL Cholesterol Direct Vancomycin Trough Crossmatch 12/18/19 12/18/19 12/18/19 06:37 12:30 19:00 RBC Hgb Hct MCV RDW Plt Count Lymph % (Auto) [place] % (Auto) Eos % (Auto) Lymph # Seg Neutrophils % Seg Neutrophils # PT INR ABG pH ABG pO2 ABG HCO3 ABG O2 Saturation ABG Base Excess ABG Hemoglobin Oxyhemoglobin Sodium Potassium Chloride Carbon Dioxide BUN Creatinine Glucose POC Glucose 132 H 127 H 130 H Lactic Acid Calcium AST ALT Troponin T Albumin LDL Cholesterol Direct Vancomycin Trough Crossmatch 12/19/19 12/19/19 12/19/19 05:51 12:41 14:43 RBC Hgb Hct MCV RDW Plt Count Lymph % (Auto) [place] % (Auto) Eos % (Auto) Lymph # Seg Neutrophils % Seg Neutrophils # PT INR ABG pH ABG pO2 93.5 H ABG HCO3 26.1 H ABG O2 Saturation ABG Base Excess ABG Hemoglobin 9.9 L Oxyhemoglobin Sodium 147 H Potassium 3.5 L Chloride 114.3 H Carbon Dioxide 21 L D BUN 37 H Creatinine Glucose 119 H POC Glucose 123 H Lactic Acid Calcium 11.8 H AST ALT Troponin T Albumin LDL Cholesterol Direct Vancomycin Trough Crossmatch 12/20/19 12/20/19 12/20/19 04:19 12:58 23:56 RBC Hgb Hct MCV RDW Plt Count Lymph % (Auto) [place] % (Auto) Eos % (Auto) Lymph # Seg Neutrophils % Seg Neutrophils # PT INR ABG pH ABG pO2 ABG HCO3 27.0 H ABG O2 Saturation ABG Base Excess ABG Hemoglobin Oxyhemoglobin 94.2 L Sodium Potassium Chloride Carbon Dioxide BUN Creatinine Glucose POC Glucose 118 H 67 L Lactic Acid Calcium AST ALT Troponin T Albumin LDL Cholesterol Direct Vancomycin Trough Crossmatch 12/21/19 05:22 RBC Hgb Hct MCV RDW Plt Count Lymph % (Auto) [place] % (Auto) Eos % (Auto) Lymph # Seg Neutrophils % Seg Neutrophils # PT INR ABG pH ABG pO2 ABG HCO3 ABG O2 Saturation ABG Base Excess ABG Hemoglobin Oxyhemoglobin Sodium Potassium Chloride Carbon Dioxide BUN Creatinine Glucose POC Glucose 120 H Lactic Acid Calcium AST ALT Troponin T Albumin LDL Cholesterol Direct Vancomycin Trough Crossmatch Chest x-ray: image reviewed (persistent bilateral infiltrates) Allied health notes reviewed: nursing
[2019-12-22] MEDS: IPRATROPIUM/ALBUTEROL SULFATE 3 ML AMPUL.NEB IH SCH ×4 (01:08→20:22)
[2019-12-22] MEDS: oxyCODONE /ACETAMINOPHEN 5-325MG TAB PO PRN (02:45)
[2019-12-22] MEDS: HEPARIN 5,000 UNIT/1 ML VIAL SUB-Q SCH ×3 (06:35→21:27)
[2019-12-22] MEDS: SENNOSIDES ORAL LIQD 8.8 MG/5 ML ORAL LIQD FEEDTUBE SCH ×2 (09:32→21:27)
[2019-12-22] MEDS: allopurinoL 300 MG TAB PO SCH (09:33)
[2019-12-22] MEDS: LINEZOLID 600 MG TAB PO SCH (09:33)
[2019-12-22] MEDS: MULTIVITAMINS 5 ML ORAL LIQUID PO SCH (09:33)
[2019-12-22] MEDS: ASPIRIN 81 MG TAB CHEW PO SCH (09:33)
[2019-12-22] MEDS: FOLIC ACID 1 MG TAB PO SCH (09:33)
[2019-12-22] MEDS: LANSOPRAZOLE 30 MG SOLUTAB FEEDTUBE SCH (09:33)
[2019-12-22] MEDS: carvediloL 6.25 MG TAB PO SCH ×2 (09:34→21:27)
--- NOTE | 2019-12-22 12:25 | Progress Note ---
Assessment and Plan Severe Sepsis with Shock Pneumonia Acute hypoxic respiratory failure on MVS Chronic kidney disease Anemia Thrombocytopenia CHF (EF 45-50% on 10/2019) CVA with aphasia Dementia Oropharyngeal dysphagia s/p PEG - continue daytime SBT - get ABG at 9 pm tonight before resting - tentative extubation in am - begin hydralazine 25 mg po bid for HTN - repeat BMP & CBC ion am - continue Percocet prn for moderate to severe pain - continue Coreg at 6.25 mg bid re: HTN - continue to rest on set rate of 12/min - Magnesium level WNL - prn vasopressor support for target MAP > 65 mmHg - Continue with MVS, Lung protective strategies, monitor airway pressures - VAP bundle addressed (continue aspiration precautions, HOB>40) - Daily SAT's and assessment for readiness for SBT - Titrate sedation for RAAS 0 to -1 - VTE prophylaxis - Stress ulcer prophylaxis - continue enteric nutrition - continue glycemic control, with target blood glucose 140-180 mg/dL while critically ill. Avoid hypoglycemia - Wean supplemental oxygen for target O2 sat's > 90% - Adjust minute ventilation for better gas exchange - ABG and CXR prn - Follow cultures and adjust antibiotic therapy for SAMMIE and culture results - Avoid nephrotoxins, adjust all medications for GFR and CrCL - continue bronchodilators with pulmonary hygiene per RT - continue to avoid benzodiazepines to reduce the possibility of delirium - prn analgesia per CPOT score - Maintenance of sleep-wake cycle, avoid delirium - PT/OT/ROM exercises - continue mobility protocol and skin assessment per protocol for pressure ulcer prevention - Monitor hemodynamics closely - continue other care per attending / other consultants .... care plan discussed at length with daughter in room. CONDITION: CRITICAL PROGNOSIS: GUARDED CODE STATUS: FULL CODE The high probability of a clinically significant, sudden or life-threatening deterioration of the [respiratory, cardiovascular] system(s) required my full and direct attention, intervention and personal management. The aggregate critical care time was [32] minutes without overlap. Time includes spent on; [x] Data Review and interpretation [x] Patient assessment and monitoring of vital signs [x] Documentation [x] Medication orders and management Subjective Date of service: 12/22/19 Principal diagnosis: Severe Sepsis with Shock; Pneumonia; Ac hypoxemic respfailure; CKD Interval history: Patient is seen today for: Severe Sepsis with Shock; Pneumonia; Acute hypoxic respiratory failure on MVS; Chronic kidney disease; Anemia; Thrombocytopenia; CHF (EF 45-50% on 10/2019); CVA with aphasia; Dementia; Oropharyngeal dysphagia s/p PEG Seen and examined at bedside; 24hour events reviewed; nursing and respiratory care staff consulted; no adverse overnight events reported to me; resting peacefully in bed; BP's running high; remains on SBT and now tolerating Psupp of 10 cm H2O; No N/V/F/C Objective Vital Signs - 12hr 12/22/19 12/22/19 12/22/19 01:00 01:08 02:00 Temperature Pulse Rate 85 82 80 Pulse Rate [ From Monitor] Respiratory 27 H 24 Rate Blood Pressure 173/99 173/99 162/93 O2 Sat by Pulse Oximetry 12/22/19 12/22/19 12/22/19 03:00 04:00 04:45 Temperature 97.5 F L 95.0 F L Pulse Rate 84 80 Pulse Rate [ 76 From Monitor] Respiratory 20 17 Rate Blood Pressure 171/97 171/97 O2 Sat by Pulse 96 Oximetry 12/22/19 12/22/19 12/22/19 05:00 05:32 06:00 Temperature Pulse Rate 74 73 74 Pulse Rate [ From Monitor] Respiratory 18 26 H Rate Blood Pressure 136/77 136/77 144/86 O2 Sat by Pulse 99 Oximetry 12/22/19 12/22/19 12/22/19 07:00 08:00 08:55 Temperature 98.3 F Pulse Rate 78 77 77 Pulse Rate [ 78 From Monitor] Respiratory 15 27 H Rate Blood Pressure 139/92 151/94 134/89 O2 Sat by Pulse 100 Oximetry 12/22/19 12/22/19 12/22/19 09:00 09:34 10:00 Temperature Pulse Rate 78 78 77 Pulse Rate [ From Monitor] Respiratory 25 H 17 Rate Blood Pressure 141/84 141/84 134/89 O2 Sat by Pulse 100 Oximetry 12/22/19 12/22/19 10:47 11:00 Temperature Pulse Rate 79 86 Pulse Rate [ From Monitor] Respiratory 23 27 H Rate Blood Pressure 134/99 160/94 O2 Sat by Pulse 100 98 Oximetry Constitutional: no acute distress, other (elderly and chronically ill looking, atraumatic, normocephalic) Eyes: non-icteric, other (orally intubated ETT at 23cm, no patient-ventilator dys-synchrony) ENT: oropharynx moist, other (ETT 23 cm ELISEO) Neck: supple, no JVD Effort: mildly labored Ascultation: Bilateral: diminished breath sounds, rhonchi Percussion: Bilateral: not dull Cardiovascular: regular rate and rhythm, other (S1,S2, no murmurs) Gastrointestinal: normoactive bowel sounds, soft, non-tender, non-distended, other (PEG in place) Integumentary: normal Extremities: no cyanosis, no edema, pulses normal, no ischemia or petechiae Neurologic: non-focal exam (grossly), pupils equal and round, other (somnolent; weak) Psychiatric: mood appropriate, affect normal CBC and BMP: 12/23/19 04:04 12/23/19 04:04 ABG, PT/INR, D-dimer: ABG ABG pH 7.410 pH Units (7.350-7.450) 12/20/19 04:19 ABG pCO2 43.6 mm Hg 12/20/19 04:19 ABG pO2 85.7 mm Hg (80.0-90.0) 12/20/19 04:19 ABG O2 Saturation 96.4 % (95.0-99.0) 12/20/19 04:19 PT/INR, D-dimer PT 15.1 Sec. (12.2-14.9) H 12/12/19 05:00 INR 1.17 (0.87-1.13) H 12/12/19 05:00 Abnormal lab findings: Abnormal Labs 12/12/19 12/12/19 12/12/19 04:35 05:00 05:00 RBC 2.39 L Hgb 7.7 L Hct 23.1 L MCV 97 H RDW 18.8 H Plt Count Lymph % (Auto) 9.9 L Ellis % (Auto) Eos % (Auto) Lymph # 0.5 L Seg Neutrophils % 86.5 H Seg Neutrophils # PT INR ABG pH ABG pO2 ABG HCO3 ABG O2 Saturation ABG Base Excess ABG Hemoglobin Oxyhemoglobin Sodium Potassium Chloride Carbon Dioxide 19 L BUN 51 H Creatinine 1.9 H Glucose 117 H POC Glucose 129 H Lactic Acid Calcium AST 46 H ALT 72 H Troponin T 0.080 H Albumin 2.2 L LDL Cholesterol Direct 38 L Vancomycin Trough Crossmatch 12/12/19 12/12/19 12/12/19 05:00 05:00 05:00 RBC Hgb Hct MCV RDW Plt Count Lymph % (Auto) Ellis % (Auto) Eos % (Auto) Lymph # Seg Neutrophils % Seg Neutrophils # PT 15.1 H INR 1.17 H ABG pH 7.320 L ABG pO2 95.6 H ABG HCO3 18.2 L ABG O2 Saturation 99.5 H ABG Base Excess -7.2 L ABG Hemoglobin 7.3 L Oxyhemoglobin 94.9 L Sodium Potassium Chloride Carbon Dioxide BUN Creatinine Glucose POC Glucose Lactic Acid 7.90 H* Calcium AST ALT Troponin T Albumin LDL Cholesterol Direct Vancomycin Trough Crossmatch 12/12/19 12/12/19 12/12/19 05:00 07:04 08:10 RBC Hgb Hct MCV RDW Plt Count Lymph % (Auto) Ellis % (Auto) Eos % (Auto) Lymph # Seg Neutrophils % Seg Neutrophils # PT INR ABG pH ABG pO2 ABG HCO3 ABG O2 Saturation ABG Base Excess ABG Hemoglobin Oxyhemoglobin Sodium Potassium Chloride Carbon Dioxide BUN Creatinine Glucose POC Glucose Lactic Acid 7.30 H* 6.40 H* Calcium AST ALT Troponin T Albumin LDL Cholesterol Direct Vancomycin Trough Crossmatch See Detail 12/12/19 12/12/19 12/12/19 15:01 18:48 Unknown RBC Hgb Hct MCV RDW Plt Count Lymph % (Auto) Ellis % (Auto) Eos % (Auto) Lymph # Seg Neutrophils % Seg Neutrophils # PT INR ABG pH ABG pO2 ABG HCO3 ABG O2 Saturation ABG Base Excess ABG Hemoglobin Oxyhemoglobin Sodium Potassium Chloride Carbon Dioxide BUN Creatinine Glucose POC Glucose 62 L Lactic Acid 2.90 H* 4.30 H* Calcium AST ALT Troponin T Albumin LDL Cholesterol Direct Vancomycin Trough Crossmatch 12/13/19 12/13/19 12/13/19 04:56 04:56 05:40 RBC 2.24 L Hgb 7.1 L Hct 21.6 L MCV 96 H RDW 19.9 H Plt Count 135 L Lymph % (Auto) 11.6 L Ellis % (Auto) Eos % (Auto) Lymph # 1.1 L Seg Neutrophils % 79.2 H Seg Neutrophils # 7.8 H PT INR ABG pH ABG pO2 ABG HCO3 17.3 L ABG O2 Saturation ABG Base Excess -7.2 L ABG Hemoglobin 7.8 L Oxyhemoglobin Sodium Potassium Chloride 111.8 H Carbon Dioxide 16 L BUN 39 H Creatinine 1.6 H Glucose 101 H POC Glucose Lactic Acid Calcium AST ALT Troponin T Albumin LDL Cholesterol Direct Vancomycin Trough Crossmatch 12/13/19 12/13/19 12/14/19 18:05 23:24 04:22 RBC Hgb Hct MCV RDW Plt Count Lymph % (Auto) Ellis % (Auto) Eos % (Auto) Lymph # Seg Neutrophils % Seg Neutrophils # PT INR ABG pH ABG pO2 156.5 H ABG HCO3 17.3 L ABG O2 Saturation ABG Base Excess -7.6 L ABG Hemoglobin 5.5 L Oxyhemoglobin Sodium Potassium Chloride Carbon Dioxide BUN Creatinine Glucose POC Glucose 165 H 110 H Lactic Acid Calcium AST ALT Troponin T Albumin LDL Cholesterol Direct Vancomycin Trough Crossmatch 12/14/19 12/14/19 12/14/19 06:18 06:45 06:45 RBC 1.98 L Hgb 6.3 L Hct 19.4 L* MCV 98 H RDW 20.3 H Plt Count 103 L Lymph % (Auto) 9.7 L Ellis % (Auto) Eos % (Auto) Lymph # 0.9 L Seg Neutrophils % 81.4 H Seg Neutrophils # 7.8 H PT INR ABG pH ABG pO2 ABG HCO3 ABG O2 Saturation ABG Base Excess ABG Hemoglobin Oxyhemoglobin Sodium Potassium Chloride 115.3 H Carbon Dioxide 17 L BUN 38 H Creatinine 1.7 H Glucose 117 H POC Glucose 138 H Lactic Acid Calcium AST ALT Troponin T Albumin LDL Cholesterol Direct Vancomycin Trough Crossmatch 12/14/19 12/14/19 12/14/19 12:54 17:35 23:35 RBC Hgb Hct MCV RDW Plt Count Lymph % (Auto) Ellis % (Auto) Eos % (Auto) Lymph # Seg Neutrophils % Seg Neutrophils # PT INR ABG pH ABG pO2 ABG HCO3 ABG O2 Saturation ABG Base Excess ABG Hemoglobin Oxyhemoglobin Sodium Potassium Chloride Carbon Dioxide BUN Creatinine Glucose POC Glucose 127 H 163 H 116 H Lactic Acid Calcium AST ALT Troponin T Albumin LDL Cholesterol Direct Vancomycin Trough Crossmatch 12/15/19 12/15/19 12/15/19 04:10 05:30 05:30 RBC 2.97 L Hgb 9.4 L D Hct 28.3 L D MCV 95 H RDW 17.8 H Plt Count 101 L Lymph % (Auto) 5.2 L Ellis % (Auto) Eos % (Auto) Lymph # 0.5 L Seg Neutrophils % 87.5 H Seg Neutrophils # 8.2 H PT INR ABG pH ABG pO2 71.3 L ABG HCO3 16.5 L ABG O2 Saturation ABG Base Excess -7.9 L ABG Hemoglobin 10.9 L Oxyhemoglobin 93.4 L Sodium Potassium Chloride Carbon Dioxide BUN Creatinine Glucose POC Glucose Lactic Acid Calcium AST ALT Troponin T Albumin LDL Cholesterol Direct Vancomycin Trough 23.6 H Crossmatch 12/15/19 12/15/19 12/15/19 05:30 12:35 17:24 RBC Hgb Hct MCV RDW Plt Count Lymph % (Auto) Ellis % (Auto) Eos % (Auto) Lymph # Seg Neutrophils % Seg Neutrophils # PT INR ABG pH ABG pO2 ABG HCO3 ABG O2 Saturation ABG Base Excess ABG Hemoglobin Oxyhemoglobin Sodium Potassium Chloride 117.0 H Carbon Dioxide 14 L BUN 35 H Creatinine Glucose POC Glucose 120 H 155 H Lactic Acid Calcium 10.3 H AST ALT Troponin T Albumin LDL Cholesterol Direct Vancomycin Trough Crossmatch 12/16/19 12/16/19 12/16/19 04:30 05:38 06:30 RBC 3.04 L Hgb 9.6 L Hct 29.1 L MCV 96 H RDW 17.5 H Plt Count 105 L Lymph % (Auto) Ellis % (Auto) Eos % (Auto) Lymph # Seg Neutrophils % Seg Neutrophils # PT INR ABG pH ABG pO2 146.9 H ABG HCO3 18.0 L ABG O2 Saturation ABG Base Excess -6.5 L ABG Hemoglobin 8.9 L Oxyhemoglobin Sodium Potassium Chloride Carbon Dioxide BUN Creatinine Glucose POC Glucose 128 H Lactic Acid Calcium AST ALT Troponin T Albumin LDL Cholesterol Direct Vancomycin Trough Crossmatch 12/16/19 12/16/19 12/17/19 12:10 17:52 04:40 RBC Hgb Hct MCV RDW Plt Count Lymph % (Auto) Ellis % (Auto) Eos % (Auto) Lymph # Seg Neutrophils % Seg Neutrophils # PT INR ABG pH ABG pO2 109.1 H ABG HCO3 ABG O2 Saturation ABG Base Excess -4.6 L ABG Hemoglobin 10.9 L Oxyhemoglobin Sodium Potassium Chloride Carbon Dioxide BUN Creatinine Glucose POC Glucose 124 H 136 H Lactic Acid Calcium AST ALT Troponin T Albumin LDL Cholesterol Direct Vancomycin Trough Crossmatch 12/17/19 12/17/19 12/17/19 05:18 11:45 17:27 RBC Hgb Hct MCV RDW Plt Count Lymph % (Auto) Ellis % (Auto) Eos % (Auto) Lymph # Seg Neutrophils % Seg Neutrophils # PT INR ABG pH ABG pO2 ABG HCO3 ABG O2 Saturation ABG Base Excess ABG Hemoglobin Oxyhemoglobin Sodium Potassium Chloride Carbon Dioxide BUN Creatinine Glucose POC Glucose 140 H 116 H 110 H Lactic Acid Calcium AST ALT Troponin T Albumin LDL Cholesterol Direct Vancomycin Trough Crossmatch 12/18/19 12/18/19 12/18/19 00:48 04:23 04:30 RBC 3.49 L Hgb 10.8 L Hct 32.8 L MCV RDW 17.9 H Plt Count 103 L Lymph % (Auto) Ellis % (Auto) 8.4 H Eos % (Auto) 4.8 H Lymph # 1.0 L Seg Neutrophils % 73.0 H Seg Neutrophils # PT INR ABG pH ABG pO2 ABG HCO3 ABG O2 Saturation ABG Base Excess ABG Hemoglobin 10.0 L Oxyhemoglobin Sodium Potassium Chloride Carbon Dioxide BUN Creatinine Glucose POC Glucose 128 H Lactic Acid Calcium AST ALT Troponin T Albumin LDL Cholesterol Direct Vancomycin Trough Crossmatch 12/18/19 12/18/19 12/18/19 06:37 12:30 19:00 RBC Hgb Hct MCV RDW Plt Count Lymph % (Auto) Ellis % (Auto) Eos % (Auto) Lymph # Seg Neutrophils % Seg Neutrophils # PT INR ABG pH ABG pO2 ABG HCO3 ABG O2 Saturation ABG Base Excess ABG Hemoglobin Oxyhemoglobin Sodium Potassium Chloride Carbon Dioxide BUN Creatinine Glucose POC Glucose 132 H 127 H 130 H Lactic Acid Calcium AST ALT Troponin T Albumin LDL Cholesterol Direct Vancomycin Trough Crossmatch 12/19/19 12/19/19 12/19/19 05:51 12:41 14:43 RBC Hgb Hct MCV RDW Plt Count Lymph % (Auto) Ellis % (Auto) Eos % (Auto) Lymph # Seg Neutrophils % Seg Neutrophils # PT INR ABG pH ABG pO2 93.5 H ABG HCO3 26.1 H ABG O2 Saturation ABG Base Excess ABG Hemoglobin 9.9 L Oxyhemoglobin Sodium 147 H Potassium 3.5 L Chloride 114.3 H Carbon Dioxide 21 L D BUN 37 H Creatinine Glucose 119 H POC Glucose 123 H Lactic Acid Calcium 11.8 H AST ALT Troponin T Albumin LDL Cholesterol Direct Vancomycin Trough Crossmatch 12/20/19 12/20/19 12/20/19 04:19 12:58 23:56 RBC Hgb Hct MCV RDW Plt Count Lymph % (Auto) Ellis % (Auto) Eos % (Auto) Lymph # Seg Neutrophils % Seg Neutrophils # PT INR ABG pH ABG pO2 ABG HCO3 27.0 H ABG O2 Saturation ABG Base Excess ABG Hemoglobin Oxyhemoglobin 94.2 L Sodium Potassium Chloride Carbon Dioxide BUN Creatinine Glucose POC Glucose 118 H 67 L Lactic Acid Calcium AST ALT Troponin T Albumin LDL Cholesterol Direct Vancomycin Trough Crossmatch 12/21/19 12/21/19 12/21/19 05:22 12:51 18:08 RBC Hgb Hct MCV RDW Plt Count Lymph % (Auto) Ellis % (Auto) Eos % (Auto) Lymph # Seg Neutrophils % Seg Neutrophils # PT INR ABG pH ABG pO2 ABG HCO3 ABG O2 Saturation ABG Base Excess ABG Hemoglobin Oxyhemoglobin Sodium Potassium Chloride Carbon Dioxide BUN Creatinine Glucose POC Glucose 120 H 115 H 118 H Lactic Acid Calcium AST ALT Troponin T Albumin LDL Cholesterol Direct Vancomycin Trough Crossmatch 12/21/19 12/22/19 23:42 05:53 RBC Hgb Hct MCV RDW Plt Count Lymph % (Auto) Ellis % (Auto) Eos % (Auto) Lymph # Seg Neutrophils % Seg Neutrophils # PT INR ABG pH ABG pO2 ABG HCO3 ABG O2 Saturation ABG Base Excess ABG Hemoglobin Oxyhemoglobin Sodium Potassium Chloride Carbon Dioxide BUN Creatinine Glucose POC Glucose 109 H 111 H Lactic Acid Calcium AST ALT Troponin T Albumin LDL Cholesterol Direct Vancomycin Trough Crossmatch Chest x-ray: pending Allied health notes reviewed: nursing
[2019-12-22] MEDS: hydrALAZINE 25 MG TAB PO SCH ×2 (13:43→21:26)
[2019-12-22] MEDS: hydrALAZINE 20 MG/1 ML INJ IV PRN (16:34)
--- NOTE | 2019-12-22 17:31 | Progress Note ---
Assessment and Plan Assessment and plan: 79-year-old male with a past medical history of hypertension, dementia, chronic kidney disease, thrombocytopenia, dyslipidemia, CVA with aphasia s/p PEG placement, and recent admission here for bilateral pneumonia presents from long term with alteration in mental status, respiratory distress, and hyp oxia. In the ER Patient was tachypneic with a saturation of 89 to 90% on nonrebreather, systolic pressure 160s. Patient also having intermittent coughing with accessory muscle use. He was intubate in the ER and place a central line for resuscitation and stabilization. He is being admitted to ICU for further evaluation and Mx. - Patient Problems (1) Acute encephalopathy Current Visit: Yes Status: Acute Plan to address problem: Multifactorial secondary to sepsis on underlying dementia. Prognosis remains guarded. Dementia has progressed. Overall global cognition unchanged. Remains poor poor global functioning remains intubated comfortable. (2) Acute respiratory failure Current Visit: Yes Status: Acute Plan to address problem: Patient at present remains intubated unable to wean. Recurrent aspiration bilateral pneumonia. Has been very difficult weaning process. Very high risk for aspiration.. Would be difficult to stop all aspiration in this patient. Patient on day 8 out of 10 of Line[place] (3) Bilateral pneumonia Current Visit: Yes Status: Acute Plan to address problem: Continue present antibiotic coverage. Follow-up culture and future culture data. Attempt to wean as tolerated. No fever Zyvox. (4) Dementia Current Visit: Yes Status: Acute Plan to address problem: Most likely worsening advanced dementia. Prognosis remains guarded. (5) Septic shock Current Visit: Yes Status: Acute Plan to address problem: Resolving. Continue current antibiotics. Fever curve downtrending. (6) JULIA (acute kidney injury) secondary to vasomotor nephropathy Current Visit: No Status: Acute Plan to address problem: Patient with acute on most likely chronic renal insufficiency secondary to prerenal azotemia. (7) Aspiration pneumonia Current Visit: No Status: Acute Plan to address problem: Status post PEG tube placement was happening before and now after. Spoke with family about options. (8) Debility Current Visit: No Status: Acute Plan to address problem: Multifactorial sepsis bilateral pneumonia. (9) Anemia (10) Thrombocytopenia (11) CHF (EF 45-50% on 10/2019) (12) CVA with aphasia (13) Dementia (14) Oropharyngeal dysphagia s/p PEG The high probability of a clinically significant, sudden or life threatening deterioration of the [] system(s) required my full and direct attention, intervention and personal management. The aggregate critical care time was [] minutes. This time is in addition to time spent performing reported procedures but includes the following: [x]x Data Review and interpretation [x] Patient assessment and monitoring of vital signs [x] Documentation [x] Medication orders and management History Interval history: Patient seen and examined remains, family had opted for hospice. Hospitalist Physical - Physical exam Narrative exam: General appearance: Present: no acute distress, other (intubated and sedated) - Respiratory Respiratory effort: normal Respiratory: bilateral: CTA - Cardiovascular Rhythm: regular - Extremities Extremities: no ischemia, pulses intact, pulses symmetrical, No edema, normal temperature, normal color Peripheral Pulses: within normal limits - Abdominal General gastrointestinal: soft, non-tender, non-distended, hypoactive bowel sounds, no hepatomegaly, no splenomegaly, no mass - Integumentary Integumentary: Present: clear, warm, dry - Constitutional Vitals: Temp Pulse Resp BP Pulse Ox 97.9 F 77 26 H 169/94 98 12/22/19 16:00 12/22/19 16:34 12/22/19 16:00 12/22/19 16:34 12/22/19 16:00 General appearance: Present: no acute distress, other (intubated and sedated) Results - Labs CBC & Chem 7: 12/23/19 04:04 12/23/19 04:04 Labs: Laboratory Last Values WBC 7.3 K/mm3 (4.5-11.0) 12/18/19 04:23 RBC 3.49 M/mm3 (3.65-5.03) L 12/18/19 04:23 Hgb 10.8 gm/dl (11.8-15.2) L 12/18/19 04:23 Hct 32.8 % (35.5-45.6) L 12/18/19 04:23 MCV 94 fl (84-94) 12/18/19 04:23 MCH 31 pg (28-32) 12/18/19 04:23 MCHC 33 % (32-34) 12/18/19 04:23 RDW 17.9 % (13.2-15.2) H 12/18/19 04:23 Plt Count 103 K/mm3 (140-440) L 12/18/19 04:23 Lymph % (Auto) 13.6 % (13.4-35.0) 12/18/19 04:23 [place] % (Auto) 8.4 % (0.0-7.3) H 12/18/19 04:23 Eos % (Auto) 4.8 % (0.0-4.3) H 12/18/19 04:23 Baso % (Auto) 0.2 % (0.0-1.8) 12/18/19 04:23 Lymph # 1.0 K/mm3 (1.2-5.4) L 12/18/19 04:23 Towner # 0.6 K/mm3 (0.0-0.8) 12/18/19 04:23 Eos # 0.4 K/mm3 (0.0-0.4) 12/18/19 04:23 Baso # 0.0 K/mm3 (0.0-0.1) 12/18/19 04:23 Seg Neutrophils % 73.0 % (40.0-70.0) H 12/18/19 04:23 Seg Neutrophils # 5.3 K/mm3 (1.8-7.7) 12/18/19 04:23 PT 15.1 Sec. (12.2-14.9) H 12/12/19 05:00 INR 1.17 (0.87-1.13) H 12/12/19 05:00 APTT 28.0 Sec. (24.2-36.6) 12/12/19 05:00 ABG pH 7.410 pH Units (7.350-7.450) 12/20/19 04:19 ABG pCO2 43.6 mm Hg 12/20/19 04:19 ABG pO2 85.7 mm Hg (80.0-90.0) 12/20/19 04:19 ABG HCO3 27.0 mmol/L (20.0-26.0) H 12/20/19 04:19 ABG O2 Saturation 96.4 % (95.0-99.0) 12/20/19 04:19 ABG O2 Content 28.1 (0.0-44) 12/20/19 04:19 ABG Base Excess 1.8 mmol/L (-2.0-3.0) 12/20/19 04:19 ABG Hemoglobin TNR 12/20/19 04:19 ABG Carboxyhemoglobin 1.7 % (0.0-5.0) 12/20/19 04:19 ABG Methemoglobin 0.6 % (0.0-1.5) 12/20/19 04:19 VBG pH 7.320 (7.320-7.420) 12/12/19 05:00 Oxyhemoglobin 94.2 % (95.0-99.0) L 12/20/19 04:19 FiO2 25 % 12/20/19 04:19 Sodium 147 mmol/L (137-145) H 12/19/19 05:51 Potassium 3.5 mmol/L (3.6-5.0) L 12/19/19 05:51 Chloride 114.3 mmol/L (98-107) H 12/19/19 05:51 Carbon Dioxide 21 mmol/L (22-30) L D 12/19/19 05:51 Anion Gap 15 mmol/L 12/19/19 05:51 BUN 37 mg/dL (9-20) H 12/19/19 05:51 Creatinine 1.3 mg/dL (0.8-1.5) 12/19/19 05:51 Estimated GFR > 60 ml/min 12/19/19 05:51 BUN/Creatinine Ratio 28 % 12/19/19 05:51 Glucose 119 mg/dL (75-100) H 12/19/19 05:51 POC Glucose 109 (70-105) H 12/22/19 12:40 Lactic Acid 1.60 mmol/L (0.7-2.0) 12/13/19 04:56 Calcium 11.8 mg/dL (8.4-10.2) H 12/19/19 05:51 Magnesium 1.70 mg/dL (1.7-2.3) 12/20/19 16:54 Total Bilirubin 0.30 mg/dL (0.1-1.2) 12/12/19 05:00 AST 46 units/L (5-40) H 12/12/19 05:00 ALT 72 units/L (7-56) H 12/12/19 05:00 Alkaline Phosphatase 84 units/L (35-129) 12/12/19 05:00 Troponin T 0.080 ng/mL (0.00-0.029) H 12/12/19 05:00 Total Protein 6.4 g/dL (6.3-8.2) 12/12/19 05:00 Albumin 2.2 g/dL (3.9-5) L 12/12/19 05:00 Albumin/Globulin Ratio 0.5 % 12/12/19 05:00 Triglycerides 30 mg/dL (2-149) 12/12/19 05:00 Cholesterol 82 mg/dL (50-199) 12/12/19 05:00 LDL Cholesterol Direct 38 mg/dL (50-130) L 12/12/19 05:00 HDL Cholesterol 45 mg/dL (40-59) 12/12/19 05:00 Cholesterol/HDL Ratio 1.82 % 12/12/19 05:00 Urine Color Yellow (Yellow) 12/12/19 Unknown Urine Turbidity Cloudy (Clear) 12/12/19 Unknown Urine pH 5.0 (5.0-7.0) 12/12/19 Unknown Ur Specific [place] 1.014 (1.003-1.030) 12/12/19 Unknown Urine Protein <15 mg/dl mg/dL (Negative) 12/12/19 Unknown Urine Glucose (UA) Neg mg/dL (Negative) 12/12/19 Unknown Urine Ketones Neg mg/dL (Negative) 12/12/19 Unknown Urine Blood Neg (Negative) 12/12/19 Unknown Urine Nitrite Neg (Negative) 12/12/19 Unknown Urine Bilirubin Neg (Negative) 12/12/19 Unknown Urine Urobilinogen < 2.0 mg/dL (<2.0) 12/12/19 Unknown Ur Leukocyte Esterase Neg (Negative) 12/12/19 Unknown Urine WBC (Auto) 2.0 /HPF (0.0-6.0) 12/12/19 Unknown Urine RBC (Auto) 3.0 /HPF (0.0-6.0) 12/12/19 Unknown U Epithel Cells (Auto) 1.0 /HPF (0-13.0) 12/12/19 Unknown Urine Bacteria (Auto) 1+ /HPF (Negative) 12/12/19 Unknown Hyaline Casts 1 /LPF 12/12/19 Unknown Urine Mucus Few /HPF 12/12/19 Unknown Vancomycin Trough 23.6 ug/mL (5.0-20.0) H 12/15/19 05:30 Blood Type A POSITIVE 12/12/19 05:00 Antibody Screen Negative 12/12/19 05:00 Crossmatch See Detail 12/12/19 05:00 Power/IV: Voiding Method Condom Catheter IV Catheter Type [Left Upper Mid-line arm] IV Catheter Type [Right Hand] INT / Saline Lock IV Catheter Type [Right Chest] Triple Lumen Cath IV Catheter Type [Right Peripheral IV Antecubital] Active Medications - Current Medications Current Medications: Generic Name Dose Route Start Last Admin Trade Name Freq PRN Reason Stop Dose Admin Acetaminophen 650 mg 12/14/19 14:25 Tylenol PO Q6H PRN Pain MILD(1-3)/Fever >100.5/BRUSH Albuterol/Ipratropium 1 ampul 12/12/19 08:00 12/22/19 13:49 Duoneb *Not For Prn Use* IH 1 ampul Q6HRT AYUSH Administration Allopurinol 300 mg 12/12/19 10:00 12/22/19 09:33 Zyloprim PO 300 mg QDAY AYUSH Administration Lipase/Protease/Amylase 1 each 12/12/19 12:[address] 10,500 Unit FEEDTUBE PRN PRN For Clogged Feeding Tube Aspirin 81 mg 12/13/19 10:00 12/22/19 09:33 Baby Aspirin PO 81 mg QDAY AYUSH Administration Atorvastatin Calcium 40 mg 12/12/19 22:00 12/21/19 22:04 Lipitor PO 40 mg QHS AYUSH Administration Carvedilol 6.25 mg 12/19/19 22:00 12/22/19 09:34 Coreg PO 6.25 mg BID AYUSH Administration Cyanocobalamin 1,000 mcg 12/12/19 10:00 12/12/19 10:00 Vitamin B-12 IM 1,000 mcg QMONTH AYUSH Administration Folic Acid 1 mg 12/12/19 10:00 12/22/19 09:33 Folvite PO 1 mg DAILY AYUSH Administration Heparin Sodium (Porcine) 5,000 unit 12/12/19 14:00 12/22/19 13:43 Heparin SUB-Q 5,000 unit Q8HR AYUSH Administration Hydralazine HCl 5 mg 12/17/19 17:06 12/22/19 16:34 Apresoline IV 5 mg Q30MIN PRN Administration Hypertension Hydralazine HCl 25 mg 12/22/19 14:00 12/22/19 13:43 Apresoline PO 25 mg BID AYUSH Administration Hydrophilic Ointment 1 applic 12/12/19 05:18 Vaseline Lip Therapy TP Q2HR PRN Dry Lips Norepinephrine 4 mg in 250 mls @ 7.5 mls/hr 12/12/19 06:00 12/15/19 01:00 Levophed Drip 4 Mg/Ns 250 Ml IV 0 mcg/min TITR AYUSH 0 mls/hr Titration Protocol 2 MCG/MIN Vasopressin 20 unit/ Sodium 101 mls @ 9.09 mls/hr 12/12/19 19:00 12/14/19 14:42 Chloride IV 0 units/min TITR AYUSH 0 mls/hr Titration Protocol 0.03 UNITS/MIN Lansoprazole 30 mg 12/14/19 15:00 12/22/19 09:33 Prevacid Solutab FEEDTUBE 30 mg QDAY AYUSH Administration Multi-Ingred Cream/Lotion/Oil/Oint 1 applic 12/12/19 05:18 Artificial Tears Ophth Oint OU Q4HR PRN Dry Eye(s) Multivitamins 5 ml 12/15/19 10:00 12/22/19 09:33 Centrum Liq PO 5 ml QDAY AYUSH Administration Ondansetron HCl 4 mg 12/12/19 07:52 Zofran IV Q8H PRN Nausea And Vomiting Oxycodone/Acetaminophen 1 tab 12/19/19 13:45 12/22/19 02:45 Percocet 5/325 PO 1 tab Q4H PRN Administration Pain, Moderate (4-6) Senna 8.8 mg 12/15/19 22:00 12/22/19 09:32 Senokot FEEDTUBE 8.8 mg BID AYUSH Administration Simple Syrup 15 ml 12/12/19 12:32 12/20/19 18:36 Simple Syrup FEEDTUBE 15 ml PRN PRN Administration Hypoglycemia Simple Syrup 30 ml 12/12/19 12:32 Simple Syrup FEEDTUBE PRN PRN Hypoglycemia Sodium Bicarbonate 325 mg 12/12/19 12:32 Sodium Bicarbonate FEEDTUBE PRN PRN For Clogged Feeding Tube Sodium Chloride 10 ml 12/12/19 10:00 12/22/19 09:34 Sodium Chloride Flush Syringe 10 Ml IV 10 ml BID AYUSH Administration Sodium Chloride 10 ml 12/12/19 07:52 12/12/19 21:38 Sodium Chloride Flush Syringe 10 Ml IV 10 ml PRN PRN Administration LINE FLUSH Nutrition/Malnutrition Assess - Dietary Evaluation Nutrition/Malnutrition Findings: Nutrition Notes Start: 12/12/19 12:10 Freq: Status: Active Protocol: Document 12/19/19 15:26 LM (Rec: 12/19/19 15:28 LM [email or web address]) Nutrition Notes Initial or Follow up Reassessment Current Diagnosis Acute Kidney Injury,CKD(stage I-IV),Sepsis,Hypertension, Respiratory Failure Other Pertinent Diagnosis hx CVA with dysphasia, PEG, dementia Current Diet Osmolite 1.5 at 50 ml/hr Labs/Tests Na 147 K 3.5 BUN 37 Pertinent Medications Reviewed Height 5 ft 8 in Weight 76.204 kg [place] Body Weight (kg) 70.00 BMI 25.5 Subjective/Other Information Per RN pt is tolerating TF at 50 ml/hr. Increased flush for hypernatremia. Percent of energy/protein needs met: 100%/100% Burn Absent Trauma Absent GI Symptoms None Current % PO Negligible Minimum of two criteria No Muscle Mass Mild Depletion (non-severe) #1 Nutrition Diagnosis Inadequate oral intake Diagnosis Progress(for reassessment Continues documentation) Is patient on ventilator? Yes Is Patient Ambulatory and/or Out of Bed No REE-([facility]-confined to bed) 2084.677 Calculation Used for Recommendations [facility] Additional Notes Protein:61-152g (0.8-2g/kg) CKD, JULIA, and vent needs Fluid: 1 ml/kcal or per MD Nutrition Intervention Change Diet Order: TF Nutrition Support: Osmolite 1.5 at 50ml/hr Flush 250 ml q4h for hypernatremia Flush 170 ml q4h once hypernatremia resolves Kcal 1,800 Protein (gm) 75 Fluid (mL) 914 Goal #1 TF tolerance Goal #2 Meet at least 75% of energy and protein needs vi TF Anticipated Discharge Needs: TF Follow-Up By: 12/23/19 Additional Comments F/U for TF tolerance, Na
[2019-12-22 20:31] LABS: ABG Base Excess 5.4 mmol/L (-2.0-3.0); ABG HCO3 29.9 mmol/L (20.0-26.0); ABG Methemoglobin 0.6 % (0.0-1.5); ABG Oxygen Saturation 97.2 % (95.0-99.0); ABG PCO2 43.8 mm Hg; ABG PH 7.452 pH Units (7.350-7.450); ABG PO2 89.2 mm Hg (80.0-90.0)
[2019-12-23] MEDS: IPRATROPIUM/ALBUTEROL SULFATE 3 ML AMPUL.NEB IH SCH ×4 (02:30→19:45)
[2019-12-23] MEDS: oxyCODONE /ACETAMINOPHEN 5-325MG TAB PO PRN (02:32)
[2019-12-23] MEDS: hydrALAZINE 20 MG/1 ML INJ IV PRN ×2 (02:32→18:07)
[2019-12-23 05:08] LABS: Hemoglobin 10.3 gm/dl (11.8-15.2); Mean Corpuscular HGB Conc 33 % (32-34); Mean Corpuscular Volume 94 fl (84-94); Platelet Count 102 K/mm3 (140-440); Red Cell Distribution Width 16.7 % (13.2-15.2)
[2019-12-23 05:25] LABS: BUN/Creatinine Ratio 35; Blood Urea Nitrogen 35 mg/dL (9-20); Calcium 11.2 mg/dL (8.4-10.2); Hemolysis Index 11
[2019-12-23] MEDS: HEPARIN 5,000 UNIT/1 ML VIAL SUB-Q SCH ×3 (06:05→21:17)
[2019-12-23] MEDS: LANSOPRAZOLE 30 MG SOLUTAB FEEDTUBE SCH (09:58)
[2019-12-23] MEDS: ASPIRIN 81 MG TAB CHEW PO SCH (09:58)
[2019-12-23] MEDS: allopurinoL 300 MG TAB PO SCH (09:58)
[2019-12-23] MEDS: FOLIC ACID 1 MG TAB PO SCH (09:59)
[2019-12-23] MEDS: SENNOSIDES ORAL LIQD 8.8 MG/5 ML ORAL LIQD FEEDTUBE SCH ×2 (09:59→21:16)
[2019-12-23] MEDS: MULTIVITAMINS 5 ML ORAL LIQUID PO SCH (09:59)
[2019-12-23] MEDS: carvediloL 6.25 MG TAB PO SCH ×2 (10:00→21:17)
[2019-12-23] MEDS: hydrALAZINE 25 MG TAB PO SCH ×2 (10:01→21:17)
[2019-12-23 14:15] LABS: ABG Base Excess 6.4 mmol/L (-2.0-3.0); ABG HCO3 31.3 mmol/L (20.0-26.0); ABG Methemoglobin 0.5 % (0.0-1.5); ABG Oxygen Saturation 96.8 % (95.0-99.0); ABG PH 7.442 pH Units (7.350-7.450)
--- NOTE | 2019-12-23 15:17 | Progress Note ---
Assessment and Plan Severe Sepsis with Shock Pneumonia Acute hypoxic respiratory failure on MVS Chronic kidney disease Anemia Thrombocytopenia CHF (EF 45-50% on 10/2019) CVA with aphasia Dementia Oropharyngeal dysphagia s/p PEG - trial of extubation - schedule BIPAP qhs with prn daytime use over next few days - continue hydralazine 25 mg po bid for HTN - BMP & CBC reviewed ansd addressed - continue Percocet prn for moderate to severe pain - continue Coreg at 6.25 mg bid re: HTN - continue to rest on set rate of 12/min - Magnesium level WNL - prn vasopressor support for target MAP > 65 mmHg - Continue with MVS, Lung protective strategies, monitor airway pressures - VAP bundle addressed (continue aspiration precautions, HOB>40) - Daily SAT's and assessment for readiness for SBT - Titrate sedation for RAAS 0 to -1 - VTE prophylaxis - Stress ulcer prophylaxis - continue enteric nutrition - continue glycemic control, with target blood glucose 140-180 mg/dL while critically ill. Avoid hypoglycemia - Wean supplemental oxygen for target O2 sat's > 90% - Adjust minute ventilation for better gas exchange - ABG and CXR prn - Follow cultures and adjust antibiotic therapy for SAMMIE and culture results - Avoid nephrotoxins, adjust all medications for GFR and CrCL - continue bronchodilators with pulmonary hygiene per RT - continue to avoid benzodiazepines to reduce the possibility of delirium - prn analgesia per CPOT score - Maintenance of sleep-wake cycle, avoid delirium - PT/OT/ROM exercises - continue mobility protocol and skin assessment per protocol for pressure ulcer prevention - Monitor hemodynamics closely - continue other care per attending / other consultants .... care plan discussed at length with daughter in room. CONDITION: CRITICAL PROGNOSIS: GUARDED CODE STATUS: FULL CODE The high probability of a clinically significant, sudden or life-threatening deterioration of the [respiratory, cardiovascular] system(s) required my full and direct attention, intervention and personal management. The aggregate critical care time was [35] minutes without overlap. Time includes spent on; [x] Data Review and interpretation [x] Patient assessment and monitoring of vital signs [x] Documentation [x] Medication orders and management Subjective Date of service: 12/23/19 Principal diagnosis: Severe Sepsis with Shock; Pneumonia; Ac hypoxemic respfailure; CKD Interval history: Patient is seen today for: Severe Sepsis with Shock; Pneumonia; Acute hypoxic respiratory failure on MVS; Chronic kidney disease; Anemia; Thrombocytopenia; CHF (EF 45-50% on 10/2019); CVA with aphasia; Dementia; Oropharyngeal dysphagia s/p PEG Seen and examined at bedside; 24hour events reviewed; nursing and respiratory care staff consulted; no adverse overnight events reported to me; resting peacefully in bed; on PSV (Psupp 10) and tolerating well; follows simple commands; No N/V/F/C Objective Vital Signs - 12hr 12/23/19 12/23/19 12/23/19 03: 03:37 04:00 Temperature 97.4 F L Pulse Rate 88 84 Pulse Rate [ Anterior Bilateral Throughout] Pulse Rate [ 80 From Monitor] Respiratory 14 Rate Respiratory Rate [Anterior Bilateral Throughout] Blood Pressure 166/70 166/70 O2 Sat by Pulse 100 99 Oximetry 12/23/19 12/23/19 12/23/19 05:00 06:00 07:00 Temperature Pulse Rate 80 76 79 Pulse Rate [ Anterior Bilateral Throughout] Pulse Rate [ From Monitor] Respiratory 15 12 14 Rate Respiratory Rate [Anterior Bilateral Throughout] Blood Pressure 103/49 108/49 108/49 O2 Sat by Pulse 99 Oximetry 12/23/19 12/23/19 12/23/19 08:00 09:00 09:42 Temperature Pulse Rate 76 74 75 Pulse Rate [ Anterior Bilateral Throughout] Pulse Rate [ 76 From Monitor] Respiratory 15 16 Rate Respiratory Rate [Anterior Bilateral Throughout] Blood Pressure 113/54 108/49 108/49 O2 Sat by Pulse 98 99 97 Oximetry 12/23/19 12/23/19 12/23/19 09:46 09:49 10:00 Temperature Pulse Rate 76 73 Pulse Rate [ 79 Anterior Bilateral Throughout] Pulse Rate [ From Monitor] Respiratory 30 H 23 Rate Respiratory 28 H Rate [Anterior Bilateral Throughout] Blood Pressure 108/49 135/59 O2 Sat by Pulse 96 98 Oximetry 12/23/19 12/23/19 12/23/19 10:01 11:00 12:00 Temperature 97.6 F Pulse Rate 73 73 74 Pulse Rate [ Anterior Bilateral Throughout] Pulse Rate [ 74 From Monitor] Respiratory 16 25 H Rate Respiratory Rate [Anterior Bilateral Throughout] Blood Pressure 135/59 118/58 112/64 O2 Sat by Pulse 99 98 Oximetry 12/23/19 12/23/19 12/23/19 13:00 14:00 14:05 Temperature Pulse Rate 79 84 80 Pulse Rate [ Anterior Bilateral Throughout] Pulse Rate [ From Monitor] Respiratory 29 H 26 H 25 H Rate Respiratory Rate [Anterior Bilateral Throughout] Blood Pressure 112/64 123/66 153/89 O2 Sat by Pulse 98 99 100 Oximetry 12/23/19 12/23/19 14:42 15:00 Temperature Pulse Rate 80 Pulse Rate [ 78 Anterior Bilateral Throughout] Pulse Rate [ From Monitor] Respiratory 30 H Rate Respiratory 25 H Rate [Anterior Bilateral Throughout] Blood Pressure 157/78 O2 Sat by Pulse 100 Oximetry Constitutional: no acute distress, other (elderly and chronically ill looking, atraumatic, normocephalic) Eyes: non-icteric, other (orally intubated ETT at 23cm, no patient-ventilator dys-synchrony) ENT: oropharynx moist, other (ETT 23 cm ELISEO) Neck: supple, no JVD Effort: mildly labored Ascultation: Bilateral: diminished breath sounds, rhonchi Percussion: Bilateral: not dull Cardiovascular: regular rate and rhythm, other (S1,S2, no murmurs) Gastrointestinal: normoactive bowel sounds, soft, non-tender, non-distended, other (PEG in place) Integumentary: normal Extremities: no cyanosis, no edema, pulses normal, no ischemia or petechiae Neurologic: non-focal exam (grossly), pupils equal and round, other (somnolent; weak) Psychiatric: mood appropriate, affect normal CBC and BMP: 12/23/19 04:04 12/23/19 04:04 ABG, PT/INR, D-dimer: ABG ABG pH 7.442 pH Units (7.350-7.450) 12/23/19 14:07 ABG pCO2 47.0 mm Hg 12/23/19 14:07 ABG pO2 78.0 mm Hg (80.0-90.0) L 12/23/19 14:07 ABG O2 Saturation 96.8 % (95.0-99.0) 12/23/19 14:07 PT/INR, D-dimer PT 15.1 Sec. (12.2-14.9) H 12/12/19 05:00 INR 1.17 (0.87-1.13) H 12/12/19 05:00 Abnormal lab findings: Abnormal Labs 12/12/19 12/12/19 12/12/19 04:35 05:00 05:00 RBC 2.39 L Hgb 7.7 L Hct 23.1 L MCV 97 H RDW 18.8 H Plt Count Lymph % (Auto) 9.9 L Island % (Auto) Eos % (Auto) Lymph # 0.5 L Seg Neutrophils % 86.5 H Seg Neutrophils # PT INR ABG pH ABG pO2 ABG HCO3 ABG O2 Saturation ABG Base Excess ABG Hemoglobin Oxyhemoglobin Sodium Potassium Chloride Carbon Dioxide 19 L BUN 51 H Creatinine 1.9 H Glucose 117 H POC Glucose 129 H Lactic Acid Calcium AST 46 H ALT 72 H Troponin T 0.080 H Albumin 2.2 L LDL Cholesterol Direct 38 L Vancomycin Trough Crossmatch 12/12/19 12/12/19 12/12/19 05:00 05:00 05:00 RBC Hgb Hct MCV RDW Plt Count Lymph % (Auto) Island % (Auto) Eos % (Auto) Lymph # Seg Neutrophils % Seg Neutrophils # PT 15.1 H INR 1.17 H ABG pH 7.320 L ABG pO2 95.6 H ABG HCO3 18.2 L ABG O2 Saturation 99.5 H ABG Base Excess -7.2 L ABG Hemoglobin 7.3 L Oxyhemoglobin 94.9 L Sodium Potassium Chloride Carbon Dioxide BUN Creatinine Glucose POC Glucose Lactic Acid 7.90 H* Calcium AST ALT Troponin T Albumin LDL Cholesterol Direct Vancomycin Trough Crossmatch 12/12/19 12/12/19 12/12/19 05:00 07:04 08:10 RBC Hgb Hct MCV RDW Plt Count Lymph % (Auto) Island % (Auto) Eos % (Auto) Lymph # Seg Neutrophils % Seg Neutrophils # PT INR ABG pH ABG pO2 ABG HCO3 ABG O2 Saturation ABG Base Excess ABG Hemoglobin Oxyhemoglobin Sodium Potassium Chloride Carbon Dioxide BUN Creatinine Glucose POC Glucose Lactic Acid 7.30 H* 6.40 H* Calcium AST ALT Troponin T Albumin LDL Cholesterol Direct Vancomycin Trough Crossmatch See Detail 12/12/19 12/12/19 12/12/19 15:01 18:48 Unknown RBC Hgb Hct MCV RDW Plt Count Lymph % (Auto) Island % (Auto) Eos % (Auto) Lymph # Seg Neutrophils % Seg Neutrophils # PT INR ABG pH ABG pO2 ABG HCO3 ABG O2 Saturation ABG Base Excess ABG Hemoglobin Oxyhemoglobin Sodium Potassium Chloride Carbon Dioxide BUN Creatinine Glucose POC Glucose 62 L Lactic Acid 2.90 H* 4.30 H* Calcium AST ALT Troponin T Albumin LDL Cholesterol Direct Vancomycin Trough Crossmatch 12/13/19 12/13/19 12/13/19 04:56 04:56 05:40 RBC 2.24 L Hgb 7.1 L Hct 21.6 L MCV 96 H RDW 19.9 H Plt Count 135 L Lymph % (Auto) 11.6 L Island % (Auto) Eos % (Auto) Lymph # 1.1 L Seg Neutrophils % 79.2 H Seg Neutrophils # 7.8 H PT INR ABG pH ABG pO2 ABG HCO3 17.3 L ABG O2 Saturation ABG Base Excess -7.2 L ABG Hemoglobin 7.8 L Oxyhemoglobin Sodium Potassium Chloride 111.8 H Carbon Dioxide 16 L BUN 39 H Creatinine 1.6 H Glucose 101 H POC Glucose Lactic Acid Calcium AST ALT Troponin T Albumin LDL Cholesterol Direct Vancomycin Trough Crossmatch 12/13/19 12/13/19 12/14/19 18:05 23:24 04:22 RBC Hgb Hct MCV RDW Plt Count Lymph % (Auto) Island % (Auto) Eos % (Auto) Lymph # Seg Neutrophils % Seg Neutrophils # PT INR ABG pH ABG pO2 156.5 H ABG HCO3 17.3 L ABG O2 Saturation ABG Base Excess -7.6 L ABG Hemoglobin 5.5 L Oxyhemoglobin Sodium Potassium Chloride Carbon Dioxide BUN Creatinine Glucose POC Glucose 165 H 110 H Lactic Acid Calcium AST ALT Troponin T Albumin LDL Cholesterol Direct Vancomycin Trough Crossmatch 12/14/19 12/14/19 12/14/19 06:18 06:45 06:45 RBC 1.98 L Hgb 6.3 L Hct 19.4 L* MCV 98 H RDW 20.3 H Plt Count 103 L Lymph % (Auto) 9.7 L Island % (Auto) Eos % (Auto) Lymph # 0.9 L Seg Neutrophils % 81.4 H Seg Neutrophils # 7.8 H PT INR ABG pH ABG pO2 ABG HCO3 ABG O2 Saturation ABG Base Excess ABG Hemoglobin Oxyhemoglobin Sodium Potassium Chloride 115.3 H Carbon Dioxide 17 L BUN 38 H Creatinine 1.7 H Glucose 117 H POC Glucose 138 H Lactic Acid Calcium AST ALT Troponin T Albumin LDL Cholesterol Direct Vancomycin Trough Crossmatch 12/14/19 12/14/19 12/14/19 12:54 17:35 23:35 RBC Hgb Hct MCV RDW Plt Count Lymph % (Auto) Island % (Auto) Eos % (Auto) Lymph # Seg Neutrophils % Seg Neutrophils # PT INR ABG pH ABG pO2 ABG HCO3 ABG O2 Saturation ABG Base Excess ABG Hemoglobin Oxyhemoglobin Sodium Potassium Chloride Carbon Dioxide BUN Creatinine Glucose POC Glucose 127 H 163 H 116 H Lactic Acid Calcium AST ALT Troponin T Albumin LDL Cholesterol Direct Vancomycin Trough Crossmatch 12/15/19 12/15/19 12/15/19 04:10 05:30 05:30 RBC 2.97 L Hgb 9.4 L D Hct 28.3 L D MCV 95 H RDW 17.8 H Plt Count 101 L Lymph % (Auto) 5.2 L Island % (Auto) Eos % (Auto) Lymph # 0.5 L Seg Neutrophils % 87.5 H Seg Neutrophils # 8.2 H PT INR ABG pH ABG pO2 71.3 L ABG HCO3 16.5 L ABG O2 Saturation ABG Base Excess -7.9 L ABG Hemoglobin 10.9 L Oxyhemoglobin 93.4 L Sodium Potassium Chloride Carbon Dioxide BUN Creatinine Glucose POC Glucose Lactic Acid Calcium AST ALT Troponin T Albumin LDL Cholesterol Direct Vancomycin Trough 23.6 H Crossmatch 12/15/19 12/15/19 12/15/19 05:30 12:35 17:24 RBC Hgb Hct MCV RDW Plt Count Lymph % (Auto) Island % (Auto) Eos % (Auto) Lymph # Seg Neutrophils % Seg Neutrophils # PT INR ABG pH ABG pO2 ABG HCO3 ABG O2 Saturation ABG Base Excess ABG Hemoglobin Oxyhemoglobin Sodium Potassium Chloride 117.0 H Carbon Dioxide 14 L BUN 35 H Creatinine Glucose POC Glucose 120 H 155 H Lactic Acid Calcium 10.3 H AST ALT Troponin T Albumin LDL Cholesterol Direct Vancomycin Trough Crossmatch 12/16/19 12/16/19 12/16/19 04:30 05:38 06:30 RBC 3.04 L Hgb 9.6 L Hct 29.1 L MCV 96 H RDW 17.5 H Plt Count 105 L Lymph % (Auto) Island % (Auto) Eos % (Auto) Lymph # Seg Neutrophils % Seg Neutrophils # PT INR ABG pH ABG pO2 146.9 H ABG HCO3 18.0 L ABG O2 Saturation ABG Base Excess -6.5 L ABG Hemoglobin 8.9 L Oxyhemoglobin Sodium Potassium Chloride Carbon Dioxide BUN Creatinine Glucose POC Glucose 128 H Lactic Acid Calcium AST ALT Troponin T Albumin LDL Cholesterol Direct Vancomycin Trough Crossmatch 12/16/19 12/16/19 12/17/19 12:10 17:52 04:40 RBC Hgb Hct MCV RDW Plt Count Lymph % (Auto) Island % (Auto) Eos % (Auto) Lymph # Seg Neutrophils % Seg Neutrophils # PT INR ABG pH ABG pO2 109.1 H ABG HCO3 ABG O2 Saturation ABG Base Excess -4.6 L ABG Hemoglobin 10.9 L Oxyhemoglobin Sodium Potassium Chloride Carbon Dioxide BUN Creatinine Glucose POC Glucose 124 H 136 H Lactic Acid Calcium AST ALT Troponin T Albumin LDL Cholesterol Direct Vancomycin Trough Crossmatch 12/17/19 12/17/19 12/17/19 05:18 11:45 17:27 RBC Hgb Hct MCV RDW Plt Count Lymph % (Auto) Island % (Auto) Eos % (Auto) Lymph # Seg Neutrophils % Seg Neutrophils # PT INR ABG pH ABG pO2 ABG HCO3 ABG O2 Saturation ABG Base Excess ABG Hemoglobin Oxyhemoglobin Sodium Potassium Chloride Carbon Dioxide BUN Creatinine Glucose POC Glucose 140 H 116 H 110 H Lactic Acid Calcium AST ALT Troponin T Albumin LDL Cholesterol Direct Vancomycin Trough Crossmatch 12/18/19 12/18/19 12/18/19 00:48 04:23 04:30 RBC 3.49 L Hgb 10.8 L Hct 32.8 L MCV RDW 17.9 H Plt Count 103 L Lymph % (Auto) Island % (Auto) 8.4 H Eos % (Auto) 4.8 H Lymph # 1.0 L Seg Neutrophils % 73.0 H Seg Neutrophils # PT INR ABG pH ABG pO2 ABG HCO3 ABG O2 Saturation ABG Base Excess ABG Hemoglobin 10.0 L Oxyhemoglobin Sodium Potassium Chloride Carbon Dioxide BUN Creatinine Glucose POC Glucose 128 H Lactic Acid Calcium AST ALT Troponin T Albumin LDL Cholesterol Direct Vancomycin Trough Crossmatch 12/18/19 12/18/19 12/18/19 06:37 12:30 19:00 RBC Hgb Hct MCV RDW Plt Count Lymph % (Auto) Island % (Auto) Eos % (Auto) Lymph # Seg Neutrophils % Seg Neutrophils # PT INR ABG pH ABG pO2 ABG HCO3 ABG O2 Saturation ABG Base Excess ABG Hemoglobin Oxyhemoglobin Sodium Potassium Chloride Carbon Dioxide BUN Creatinine Glucose POC Glucose 132 H 127 H 130 H Lactic Acid Calcium AST ALT Troponin T Albumin LDL Cholesterol Direct Vancomycin Trough Crossmatch 12/19/19 12/19/19 12/19/19 05:51 12:41 14:43 RBC Hgb Hct MCV RDW Plt Count Lymph % (Auto) Island % (Auto) Eos % (Auto) Lymph # Seg Neutrophils % Seg Neutrophils # PT INR ABG pH ABG pO2 93.5 H ABG HCO3 26.1 H ABG O2 Saturation ABG Base Excess ABG Hemoglobin 9.9 L Oxyhemoglobin Sodium 147 H Potassium 3.5 L Chloride 114.3 H Carbon Dioxide 21 L D BUN 37 H Creatinine Glucose 119 H POC Glucose 123 H Lactic Acid Calcium 11.8 H AST ALT Troponin T Albumin LDL Cholesterol Direct Vancomycin Trough Crossmatch 12/20/19 12/20/19 12/20/19 04:19 12:58 23:56 RBC Hgb Hct MCV RDW Plt Count Lymph % (Auto) Island % (Auto) Eos % (Auto) Lymph # Seg Neutrophils % Seg Neutrophils # PT INR ABG pH ABG pO2 ABG HCO3 27.0 H ABG O2 Saturation ABG Base Excess ABG Hemoglobin Oxyhemoglobin 94.2 L Sodium Potassium Chloride Carbon Dioxide BUN Creatinine Glucose POC Glucose 118 H 67 L Lactic Acid Calcium AST ALT Troponin T Albumin LDL Cholesterol Direct Vancomycin Trough Crossmatch 12/21/19 12/21/19 12/21/19 05:22 12:51 18:08 RBC Hgb Hct MCV RDW Plt Count Lymph % (Auto) Island % (Auto) Eos % (Auto) Lymph # Seg Neutrophils % Seg Neutrophils # PT INR ABG pH ABG pO2 ABG HCO3 ABG O2 Saturation ABG Base Excess ABG Hemoglobin Oxyhemoglobin Sodium Potassium Chloride Carbon Dioxide BUN Creatinine Glucose POC Glucose 120 H 115 H 118 H Lactic Acid Calcium AST ALT Troponin T Albumin LDL Cholesterol Direct Vancomycin Trough Crossmatch 12/21/19 12/22/19 12/22/19 23:42 05:53 12:40 RBC Hgb Hct MCV RDW Plt Count Lymph % (Auto) [place] % (Auto) Eos % (Auto) Lymph # Seg Neutrophils % Seg Neutrophils # PT INR ABG pH ABG pO2 ABG HCO3 ABG O2 Saturation ABG Base Excess ABG Hemoglobin Oxyhemoglobin Sodium Potassium Chloride Carbon Dioxide BUN Creatinine Glucose POC Glucose 109 H 111 H 109 H Lactic Acid Calcium AST ALT Troponin T Albumin LDL Cholesterol Direct Vancomycin Trough Crossmatch 12/22/19 12/22/19 12/23/19 17:59 20:20 04:04 RBC 3.30 L Hgb 10.3 L Hct 31.0 L MCV RDW 16.7 H Plt Count 102 L Lymph % (Auto) Island % (Auto) Eos % (Auto) Lymph # Seg Neutrophils % Seg Neutrophils # PT INR ABG pH 7.452 H ABG pO2 ABG HCO3 29.9 H ABG O2 Saturation ABG Base Excess 5.4 H ABG Hemoglobin 10.2 L Oxyhemoglobin Sodium Potassium Chloride Carbon Dioxide BUN Creatinine Glucose POC Glucose 109 H Lactic Acid Calcium AST ALT Troponin T Albumin LDL Cholesterol Direct Vancomycin Trough Crossmatch 12/23/19 12/23/19 04:04 14:07 RBC Hgb Hct MCV RDW Plt Count Lymph % (Auto) Island % (Auto) Eos % (Auto) Lymph # Seg Neutrophils % Seg Neutrophils # PT INR ABG pH ABG pO2 78.0 L ABG HCO3 31.3 H ABG O2 Saturation ABG Base Excess 6.4 H ABG Hemoglobin 10.2 L Oxyhemoglobin 94.7 L Sodium Potassium Chloride Carbon Dioxide BUN 35 H Creatinine Glucose POC Glucose Lactic Acid Calcium 11.2 H AST ALT Troponin T Albumin LDL Cholesterol Direct Vancomycin Trough Crossmatch Allied health notes reviewed: nursing
--- NOTE | 2019-12-23 17:24 | Progress Note ---
Assessment and Plan Acute hypoxic respiratory failure - due to b/l PNA - intubated, consulted pulmonary - placed on scheduled nebs, - cont to monitor, plan for extubation today Sepsis with b/l PNA (HCAP) also cannot r/o aspiration - Sputum culture grew MRSA, Had recurrent PNA recently related to aspiration - Sepsis with PNA, tachycardia, tachypnea, and lactic acidosis -Patient placed on IV linezolid, ID is following the patient, completed 10 day course -Blood cultures are negative so far Septic shock, resolved - s/p levophed, also cont iv fluid dementia, h/o - now intubated, family wants full code Dash chronic kidney disease, due to sepsis - cont to monitor, iv fluid - resolved thrombocytopenia with anemia -Hemoglobin dropped below 7 and s/p 2 units of PRBC transfused -GI consulted - no plan for endoscopy dyslipidemia, cont statin NSTEMI type 2 -chronically elevated, monitor for now - EF 45-50% on 10/27 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 off heparin for severe anemia and thrombocytopenia Poor prognosis. offered hospice to daughter due to underlying dementia, recurrent boots of PNA recently related aspiration and now with MRSA. Daughter taking time to decide. The high probability of a clinically significant, sudden or life threatening deterioration of the [cardiovascular, respiratory] system(s) required my full and direct attention, intervention and personal management. The aggregate critical care time was [32] minutes. This time is in addition to time spent performing reported procedures but includes the following: [x] Data Review and interpretation [x] Patient assessment and monitoring of vital signs [x] Documentation [x] Medication orders and management Brief History: 79-year-old male with hypertension, dementia, CKD, CVA with a aphasia and status post PEG tube placement, resident of [facility], multiple recent hospitalizations, most recently in November 2019 with bilateral pneumonia, acute anemia requiring antibiotics as well as blood transfusion. He was sent to the emergency room from the [facility] on 12/12/2019 with worsening mental status, respiratory distress and hypoxia: Now being treated for b/l PNA, respiratory failure. Subjective Date of service: 12/23/19 Principal diagnosis: Severe Sepsis with Shock; Pneumonia; Ac hypoxemic respfailure; CKD Interval history: Patient was seen and evaluated this morning, patient is intubated and on CPAP with vent discussed with RN and updated daughter at bedside plan for extubation today Objective - Exam Narrative Exam: General appearance: Present: other (intubated but alert) - EENT Eyes: Absent: scleral icterus, conjunctival injection ENT: other (ET tube in place) - Neck Neck: Present: supple - Respiratory Respiratory: bilateral: rales (on mechanical ventilation) - Cardiovascular Heart Sounds: Present: S1 & S2. Absent: rub, click - Extremities Extremities: pulses symmetrical, No edema Peripheral Pulses: within normal limits - Abdominal General gastrointestinal: Present: soft, non-tender, non-distended, normal bowel sounds, other (PEG tube in place) - Integumentary Integumentary: Present: clear, warm, dry - Musculoskeletal Musculoskeletal: other (no joint swelling or pain ) - Psychiatric Psychiatric: other (unable to assess) - Neurologic Neurologic: other (unable to assess) - Constitutional Vitals: Vital Signs - 12hr 12/23/19 12/23/19 12/23/19 06:00 07:00 08:00 Temperature Pulse Rate 76 79 76 Pulse Rate [ Anterior Bilateral Throughout] Pulse Rate [ 76 From Monitor] Respiratory 12 14 15 Rate Respiratory Rate [Anterior Bilateral Throughout] Blood Pressure 108/49 108/49 113/54 O2 Sat by Pulse 99 98 Oximetry 12/23/19 12/23/19 12/23/19 09:00 09:42 09:46 Temperature Pulse Rate 74 75 76 Pulse Rate [ Anterior Bilateral Throughout] Pulse Rate [ From Monitor] Respiratory 16 30 H Rate Respiratory Rate [Anterior Bilateral Throughout] Blood Pressure 108/49 108/49 108/49 O2 Sat by Pulse 99 97 96 Oximetry 12/23/19 12/23/19 12/23/19 09:49 10:00 10:01 Temperature Pulse Rate 73 73 Pulse Rate [ 79 Anterior Bilateral Throughout] Pulse Rate [ From Monitor] Respiratory 23 Rate Respiratory 28 H Rate [Anterior Bilateral Throughout] Blood Pressure 135/59 135/59 O2 Sat by Pulse 98 Oximetry 12/23/19 12/23/19 12/23/19 11:00 12:00 13:00 Temperature 97.6 F Pulse Rate 73 74 79 Pulse Rate [ Anterior Bilateral Throughout] Pulse Rate [ 74 From Monitor] Respiratory 16 25 H 29 H Rate Respiratory Rate [Anterior Bilateral Throughout] Blood Pressure 118/58 112/64 112/64 O2 Sat by Pulse 99 98 98 Oximetry 12/23/19 12/23/19 12/23/19 14:00 14:05 14:42 Temperature Pulse Rate 84 80 Pulse Rate [ 78 Anterior Bilateral Throughout] Pulse Rate [ From Monitor] Respiratory 26 H 25 H Rate Respiratory 25 H Rate [Anterior Bilateral Throughout] Blood Pressure 123/66 153/89 O2 Sat by Pulse 99 100 Oximetry 12/23/19 12/23/19 15:00 16:00 Temperature 96.4 F L Pulse Rate 80 80 Pulse Rate [ Anterior Bilateral Throughout] Pulse Rate [ 75 From Monitor] Respiratory 30 H 38 H Rate Respiratory Rate [Anterior Bilateral Throughout] Blood Pressure 157/78 177/81 O2 Sat by Pulse 100 97 Oximetry - Labs CBC & Chem 7: 12/24/19 04:59 12/24/19 04:59 Labs: Abnormal lab results 12/22/19 12/22/19 12/23/19 Range/Units 17:59 20:20 04:04 RBC 3.30 L (3.65-5.03) M/mm3 Hgb 10.3 L (11.8-15.2) gm/dl Hct 31.0 L (35.5-45.6) % RDW 16.7 H (13.2-15.2) % Plt Count 102 L (140-440) K/mm3 ABG pH 7.452 H (7.350-7.450) pH Units ABG pO2 (80.0-90.0) mm Hg ABG HCO3 29.9 H (20.0-26.0) mmol/L ABG Base Excess 5.4 H (-2.0-3.0) mmol/L ABG Hemoglobin 10.2 L (14.0-18.0) gm/dl Oxyhemoglobin (95.0-99.0) % BUN (9-20) mg/dL POC Glucose 109 H (70-105) Calcium (8.4-10.2) mg/dL 12/23/19 12/23/19 Range/Units 04:04 14:07 RBC (3.65-5.03) M/mm3 Hgb (11.8-15.2) gm/dl Hct (35.5-45.6) % RDW (13.2-15.2) % Plt Count (140-440) K/mm3 ABG pH (7.350-7.450) pH Units ABG pO2 78.0 L (80.0-90.0) mm Hg ABG HCO3 31.3 H (20.0-26.0) mmol/L ABG Base Excess 6.4 H (-2.0-3.0) mmol/L ABG Hemoglobin 10.2 L (14.0-18.0) gm/dl Oxyhemoglobin 94.7 L (95.0-99.0) % BUN 35 H (9-20) mg/dL POC Glucose (70-105) Calcium 11.2 H (8.4-10.2) mg/dL
--- NOTE | 2019-12-23 18:27 | Event Note ---
Date: 12/23/19 Patient was seen by my colleague. Today
[2019-12-24] MEDS: IPRATROPIUM/ALBUTEROL SULFATE 3 ML AMPUL.NEB IH SCH ×4 (01:27→19:51)
[2019-12-24 05:25] LABS: Hematocrit 29.2 % (35.5-45.6); Hemoglobin 9.8 gm/dl (11.8-15.2); Mean Corpuscular HGB Conc 34 % (32-34); Mean Corpuscular Volume 93 fl (84-94); Platelet Count 107 K/mm3 (140-440); Red Blood Count 3.12 M/mm3 (3.65-5.03); Red Cell Distribution Width 17.1 % (13.2-15.2)
[2019-12-24 05:48] LABS: BUN/Creatinine Ratio 33; Blood Urea Nitrogen 33 mg/dL (9-20); Calcium 11.2 mg/dL (8.4-10.2); Hemolysis Index 4
[2019-12-24] MEDS: HEPARIN 5,000 UNIT/1 ML VIAL SUB-Q SCH ×3 (06:25→22:04)
[2019-12-24] MEDS: FOLIC ACID 1 MG TAB PO SCH (09:07)
[2019-12-24] MEDS: allopurinoL 300 MG TAB PO SCH (09:07)
[2019-12-24] MEDS: hydrALAZINE 25 MG TAB PO SCH ×2 (09:07→22:03)
[2019-12-24] MEDS: ASPIRIN 81 MG TAB CHEW PO SCH (09:08)
[2019-12-24] MEDS: LANSOPRAZOLE 30 MG SOLUTAB FEEDTUBE SCH (09:08)
[2019-12-24] MEDS: carvediloL 6.25 MG TAB PO SCH ×2 (09:08→22:04)
[2019-12-24] MEDS: MULTIVITAMINS 5 ML ORAL LIQUID PO SCH (09:09)
[2019-12-24] MEDS: SENNOSIDES ORAL LIQD 8.8 MG/5 ML ORAL LIQD FEEDTUBE SCH ×2 (11:16→22:05)
--- NOTE | 2019-12-24 15:19 | Progress Note ---
Assessment and Plan Assessment and plan: 79-year-old male with a past medical history of hypertension, dementia, chronic kidney disease, thrombocytopenia, dyslipidemia, CVA with aphasia s/p PEG placement, and recent admission here for bilateral pneumonia [facility] with alteration in mental status, respiratory distress, and hyp oxia. In the ER Patient was tachypneic with a saturation of 89 to 90% on nonrebreather, systolic pressure 160s. Patient also having intermittent coughing with accessory muscle use. He was intubate in the ER and place a central line for resuscitation and stabilization. He is being admitted to ICU for further evaluation and Mx. - Patient Problems (1) Acute encephalopathy Current Visit: Yes Status: Acute Plan to address problem: Multifactorial secondary to sepsis on underlying dementia. Prognosis remains guarded. Dementia has progressed. Overall global cognition unchanged. Remains poor poor global functioning remains intubated comfortable. (2) Acute respiratory failure Current Visit: Yes Status: Acute Plan to address problem: Patient successfully extubated today (3) sepsis secondary to bilateral pneumonia Current Visit: Yes Status: Acute Plan to address problem: Continue present antibiotic coverage. Follow-up culture and future culture data. No fever now off Zyvox. Cultures have remained negative (4) Dementia Current Visit: Yes Status: Acute Plan to address problem: Most likely worsening advanced dementia. Prognosis remains guarded. (5) Septic shock Current Visit: Yes Status: Acute Plan to address problem: Resolved. Patient now off any pressor. (6) JULIA (acute kidney injury) secondary to vasomotor nephropathy Current Visit: No Status: Acute Plan to address problem: Patient with acute on most likely chronic renal insufficiency secondary to prerenal azotemia. Now resolved (7) Aspiration pneumonia Current Visit: No Status: Acute Plan to address problem: Status post PEG tube placement was happening before and now after. Spoke with family about options. (8) Debility Current Visit: No Status: Acute Plan to address problem: Multifactorial sepsis bilateral pneumonia. (9) Anemia: Was seen by GI no plan for endoscopy (10) Thrombocytopenia : Was seen by GI no plan for endoscopy (11) CHF (EF 45-50% on 10/2019), with type II FL (12) CVA with aphasia: Continue aspirin and statin supportive care (13) Oropharyngeal dysphagia s/p PEG We will transfer to [facility] continue monitoring. History Interval history: Patient seen and examined remains successfully extubated yesterday stable comfortable at this time.. Hospitalist Physical - Physical exam Narrative exam: VITAL SIGNS: Reviewed. GENERAL: The patient appears chronically ill, lethargic, Vital signs as documented. HEAD: No signs of head trauma. EYES: Pupils are equal. Extraocular motions intact. EARS: Hearing grossly intact. MOUTH: Oropharynx is normal. NECK: No adenopathy, no JVD. CHEST: Chest with diminished breath sounds bilaterally. No wheezes, rales, or rhonchi. CARDIAC: Regular rate and rhythm. S1 and S2, without murmurs, gallops, or rubs. VASCULAR: No Edema. Peripheral pulses normal and equal in all extremities. ABDOMEN: Soft, non tender and non distended. No rebound or guarding, and no masses palpated. Bowel Sounds normal. MUSCULOSKELETAL: Good range of motion of all major joints. Extremities without clubbing, cyanosis or edema. NEUROLOGIC EXAM: Alert and oriented x 1 No focal sensory or strength deficits. Not following commands PSYCHIATRIC: Mood normal. SKIN: detial exam as documented in skin assessment - Constitutional Vitals: Temp Pulse Resp BP Pulse Ox 98.9 F 87 14 124/69 96 12/24/19 12:00 12/24/19 15:10 12/24/19 15:10 12/24/19 15:01 12/24/19 15:01 General appearance: Present: no acute distress, other (intubated and sedated) Results - Labs CBC & Chem 7: 12/24/19 04:59 12/24/19 04:59 Labs: Laboratory Last Values WBC 6.2 K/mm3 (4.5-11.0) 12/24/19 04:59 RBC 3.12 M/mm3 (3.65-5.03) L 12/24/19 04:59 Hgb 9.8 gm/dl (11.8-15.2) L 12/24/19 04:59 Hct 29.2 % (35.5-45.6) L 12/24/19 04:59 MCV 93 fl (84-94) 12/24/19 04:59 MCH 32 pg (28-32) 12/24/19 04:59 MCHC 34 % (32-34) 12/24/19 04:59 RDW 17.1 % (13.2-15.2) H 12/24/19 04:59 Plt Count 107 K/mm3 (140-440) L 12/24/19 04:59 Lymph % (Auto) 13.6 % (13.4-35.0) 12/18/19 04:23 [place] % (Auto) 8.4 % (0.0-7.3) H 12/18/19 04:23 Eos % (Auto) 4.8 % (0.0-4.3) H 12/18/19 04:23 Baso % (Auto) 0.2 % (0.0-1.8) 12/18/19 04:23 Lymph # 1.0 K/mm3 (1.2-5.4) L 12/18/19 04:23 [place] # 0.6 K/mm3 (0.0-0.8) 12/18/19 04:23 Eos # 0.4 K/mm3 (0.0-0.4) 12/18/19 04:23 Baso # 0.0 K/mm3 (0.0-0.1) 12/18/19 04:23 Seg Neutrophils % 73.0 % (40.0-70.0) H 12/18/19 04:23 Seg Neutrophils # 5.3 K/mm3 (1.8-7.7) 12/18/19 04:23 PT 15.1 Sec. (12.2-14.9) H 12/12/19 05:00 INR 1.17 (0.87-1.13) H 12/12/19 05:00 APTT 28.0 Sec. (24.2-36.6) 12/12/19 05:00 ABG pH 7.442 pH Units (7.350-7.450) 12/23/19 14:07 ABG pCO2 47.0 mm Hg 12/23/19 14:07 ABG pO2 78.0 mm Hg (80.0-90.0) L 12/23/19 14:07 ABG HCO3 31.3 mmol/L (20.0-26.0) H 12/23/19 14:07 ABG O2 Saturation 96.8 % (95.0-99.0) 12/23/19 14:07 ABG O2 Content 13.6 (0.0-44) 12/23/19 14:07 ABG Base Excess 6.4 mmol/L (-2.0-3.0) H 12/23/19 14:07 ABG Hemoglobin 10.2 gm/dl (14.0-18.0) L 12/23/19 14:07 ABG Carboxyhemoglobin 1.7 % (0.0-5.0) 12/23/19 14:07 ABG Methemoglobin 0.5 % (0.0-1.5) 12/23/19 14:07 VBG pH 7.320 (7.320-7.420) 12/12/19 05:00 Oxyhemoglobin 94.7 % (95.0-99.0) L 12/23/19 14:07 FiO2 25 % 12/23/19 14:07 Sodium 141 mmol/L (137-145) 12/24/19 04:59 Potassium 4.3 mmol/L (3.6-5.0) 12/24/19 04:59 Chloride 103.2 mmol/L (98-107) 12/24/19 04:59 Carbon Dioxide 26 mmol/L (22-30) 12/24/19 04:59 Anion Gap 16 mmol/L 12/24/19 04:59 BUN 33 mg/dL (9-20) H 12/24/19 04:59 Creatinine 1.0 mg/dL (0.8-1.5) 12/24/19 04:59 Estimated GFR > 60 ml/min 12/24/19 04:59 BUN/Creatinine Ratio 33 % 12/24/19 04:59 Glucose 94 mg/dL (75-100) 12/24/19 04:59 POC Glucose 99 (70-105) 12/24/19 11:58 Lactic Acid 1.60 mmol/L (0.7-2.0) 12/13/19 04:56 Calcium 11.2 mg/dL (8.4-10.2) H 12/24/19 04:59 Phosphorus 2.80 mg/dL (2.5-4.5) 12/23/19 17:00 Magnesium 1.80 mg/dL (1.7-2.3) 12/23/19 17:00 Total Bilirubin 0.30 mg/dL (0.1-1.2) 12/12/19 05:00 AST 46 units/L (5-40) H 12/12/19 05:00 ALT 72 units/L (7-56) H 12/12/19 05:00 Alkaline Phosphatase 84 units/L (35-129) 12/12/19 05:00 Troponin T 0.080 ng/mL (0.00-0.029) H 12/12/19 05:00 Total Protein 6.4 g/dL (6.3-8.2) 12/12/19 05:00 Albumin 2.2 g/dL (3.9-5) L 12/12/19 05:00 Albumin/Globulin Ratio 0.5 % 12/12/19 05:00 Triglycerides 30 mg/dL (2-149) 12/12/19 05:00 Cholesterol 82 mg/dL (50-199) 12/12/19 05:00 LDL Cholesterol Direct 38 mg/dL (50-130) L 12/12/19 05:00 HDL Cholesterol 45 mg/dL (40-59) 12/12/19 05:00 Cholesterol/HDL Ratio 1.82 % 12/12/19 05:00 Urine Color Yellow (Yellow) 12/12/19 Unknown Urine Turbidity Cloudy (Clear) 12/12/19 Unknown Urine pH 5.0 (5.0-7.0) 12/12/19 Unknown Ur Specific [place] 1.014 (1.003-1.030) 12/12/19 Unknown Urine Protein <15 mg/dl mg/dL (Negative) 12/12/19 Unknown Urine Glucose (UA) Neg mg/dL (Negative) 12/12/19 Unknown Urine Ketones Neg mg/dL (Negative) 12/12/19 Unknown Urine Blood Neg (Negative) 12/12/19 Unknown Urine Nitrite Neg (Negative) 12/12/19 Unknown Urine Bilirubin Neg (Negative) 12/12/19 Unknown Urine Urobilinogen < 2.0 mg/dL (<2.0) 12/12/19 Unknown Ur Leukocyte Esterase Neg (Negative) 12/12/19 Unknown Urine WBC (Auto) 2.0 /HPF (0.0-6.0) 12/12/19 Unknown Urine RBC (Auto) 3.0 /HPF (0.0-6.0) 12/12/19 Unknown U Epithel Cells (Auto) 1.0 /HPF (0-13.0) 12/12/19 Unknown Urine Bacteria (Auto) 1+ /HPF (Negative) 12/12/19 Unknown Hyaline Casts 1 /LPF 12/12/19 Unknown Urine Mucus Few /HPF 12/12/19 Unknown Vancomycin Trough 23.6 ug/mL (5.0-20.0) H 12/15/19 05:30 Blood Type A POSITIVE 12/12/19 05:00 Antibody Screen Negative 12/12/19 05:00 Crossmatch See Detail 12/12/19 05:00 Power/IV: Voiding Method Condom Catheter IV Catheter Type [Left Upper Mid-line arm] IV Catheter Type [Right Hand] INT / Saline Lock IV Catheter Type [Right Chest] Triple Lumen Cath IV Catheter Type [Right Peripheral IV Antecubital] Active Medications - Current Medications Current Medications: Generic Name Dose Route Start Last Admin Trade Name Freq PRN Reason Stop Dose Admin Acetaminophen 650 mg 12/14/19 14:25 Tylenol PO Q6H PRN Pain MILD(1-3)/Fever >100.5/BRUSH Albuterol/Ipratropium 1 ampul 12/12/19 08:00 12/24/19 15:10 Duoneb *Not For Prn Use* IH 1 ampul Q6HRT AYUSH Administration Allopurinol 300 mg 12/12/19 10:00 12/24/19 09:07 Zyloprim PO 300 mg QDAY AYUSH Administration Lipase/Protease/Amylase 1 each 12/12/19 12:[address] 10,500 Unit FEEDTUBE PRN PRN For Clogged Feeding Tube Aspirin 81 mg 12/13/19 10:00 12/24/19 09:08 Baby Aspirin PO 81 mg QDAY AYUSH Administration Atorvastatin Calcium 40 mg 12/12/19 22:00 12/23/19 21:17 Lipitor PO 40 mg QHS AYUSH Administration Carvedilol 6.25 mg 12/19/19 22:00 12/24/19 09:08 Coreg PO 6.25 mg BID AYUSH Administration Cyanocobalamin 1,000 mcg 12/12/19 10:00 12/12/19 10:00 Vitamin B-12 IM 1,000 mcg QMONTH AYUSH Administration Folic Acid 1 mg 12/12/19 10:00 12/24/19 09:07 Folvite PO 1 mg DAILY AYUSH Administration Heparin Sodium (Porcine) 5,000 unit 12/12/19 14:00 12/24/19 06:25 Heparin SUB-Q 5,000 unit Q8HR AYUSH Administration Hydralazine HCl 5 mg 12/17/19 17:06 12/23/19 18:07 Apresoline IV 5 mg Q30MIN PRN Administration Hypertension Hydralazine HCl 25 mg 12/22/19 14:00 12/24/19 09:07 Apresoline PO 25 mg BID AYUSH Administration Hydrophilic Ointment 1 applic 12/12/19 05:18 Vaseline Lip Therapy TP Q2HR PRN Dry Lips Lansoprazole 30 mg 12/14/19 15:00 12/24/19 09:08 Prevacid Solutab FEEDTUBE 30 mg QDAY AYUSH Administration Multi-Ingred Cream/Lotion/Oil/Oint 1 applic 12/12/19 05:18 Artificial Tears Ophth Oint OU Q4HR PRN Dry Eye(s) Multivitamins 5 ml 12/15/19 10:00 12/24/19 09:09 Centrum Liq PO 5 ml QDAY AYUSH Administration Ondansetron HCl 4 mg 12/12/19 07:52 Zofran IV Q8H PRN Nausea And Vomiting Oxycodone/Acetaminophen 1 tab 12/19/19 13:45 12/23/19 02:32 Percocet 5/325 PO 1 tab Q4H PRN Administration Pain, Moderate (4-6) Senna 8.8 mg 12/15/19 22:00 12/24/19 11:16 Senokot FEEDTUBE Not Given BID AYUSH Simple Syrup 15 ml 12/12/19 12:32 12/20/19 18:36 Simple Syrup FEEDTUBE 15 ml PRN PRN Administration Hypoglycemia Simple Syrup 30 ml 12/12/19 12:32 12/23/19 18:07 Simple Syrup FEEDTUBE 30 ml PRN PRN Administration Hypoglycemia Sodium Bicarbonate 325 mg 12/12/19 12:32 Sodium Bicarbonate FEEDTUBE PRN PRN For Clogged Feeding Tube Sodium Chloride 10 ml 12/12/19 10:00 12/23/19 21:17 Sodium Chloride Flush Syringe 10 Ml IV 10 ml BID AYUSH Administration Sodium Chloride 10 ml 12/12/19 07:52 12/12/19 21:38 Sodium Chloride Flush Syringe 10 Ml IV 10 ml PRN PRN Administration LINE FLUSH Nutrition/Malnutrition Assess - Dietary Evaluation Nutrition/Malnutrition Findings: Nutrition Notes Start: 12/12/19 12:10 Freq: Status: Active Protocol: Document 12/23/19 11:35 LM (Rec: 12/23/19 11:40 LM [email or web address]) Nutrition Notes Initial or Follow up Reassessment Current Diagnosis Acute Kidney Injury,CKD(stage I-IV),Sepsis,Hypertension, Respiratory Failure Other Pertinent Diagnosis hx CVA with dysphasia, PEG, dementia Labs/Tests Na 142 K 4.0 Pertinent Medications Reviewed Height 5 ft 8 in Weight 76.204 kg [place] Body Weight (kg) 70.00 BMI 25.5 Subjective/Other Information Osmolite running at 50 ml/hr. Pt tolerating TF. Labs improved. Percent of energy/protein needs met: 100%/100% Burn Absent Trauma Absent GI Symptoms None Current % PO Negligible Minimum of two criteria No Muscle Mass Mild Depletion (non-severe) #1 Nutrition Diagnosis Inadequate oral intake Diagnosis Progress(for reassessment Continues documentation) Is patient on ventilator? Yes Is Patient Ambulatory and/or Out of Bed No REE-([facility]-confined to bed) 3792.616 Calculation Used for Recommendations [facility] Additional Notes Protein:61-152g (0.8-2g/kg) CKD, JLUIA, and vent needs Fluid: 1 ml/kcal or per MD Nutrition Intervention Change Diet Order: TF Nutrition Support: Osmolite 1.5 at 50ml/hr Flush 250 ml q4h for hypernatremia Flush 170 ml q4h once hypernatremia resolves Kcal 1,800 Protein (gm) 75 Fluid (mL) 914 Goal #1 TF tolerance Goal #2 Meet at least 75% of energy and protein needs via TF Anticipated Discharge Needs: TF Follow-Up By: 12/30/19 Additional Comments F/U for TF tolerance
--- NOTE | 2019-12-24 17:49 | Progress Note ---
Assessment and Plan Severe Sepsis with Shock Pneumonia Acute hypoxic respiratory failure on MVS Chronic kidney disease Anemia Thrombocytopenia CHF (EF 45-50% on 10/2019) CVA with aphasia Dementia Oropharyngeal dysphagia s/p PEG - trial of extubation - schedule BIPAP qhs with prn daytime use over next few days - continue hydralazine 25 mg po bid for HTN - BMP & CBC reviewed ansd addressed - continue Percocet prn for moderate to severe pain - continue Coreg at 6.25 mg bid re: HTN - continue to rest on set rate of 12/min - Magnesium level WNL - prn vasopressor support for target MAP > 65 mmHg - Continue with MVS, Lung protective strategies, monitor airway pressures - VAP bundle addressed (continue aspiration precautions, HOB>40) - Daily SAT's and assessment for readiness for SBT - Titrate sedation for RAAS 0 to -1 - VTE prophylaxis - Stress ulcer prophylaxis - continue enteric nutrition - continue glycemic control, with target blood glucose 140-180 mg/dL while critically ill. Avoid hypoglycemia - Wean supplemental oxygen for target O2 sat's > 90% - Adjust minute ventilation for better gas exchange - ABG and CXR prn - Follow cultures and adjust antibiotic therapy for SAMMIE and culture results - Avoid nephrotoxins, adjust all medications for GFR and CrCL - continue bronchodilators with pulmonary hygiene per RT - continue to avoid benzodiazepines to reduce the possibility of delirium - prn analgesia per CPOT score - Maintenance of sleep-wake cycle, avoid delirium - PT/OT/ROM exercises - continue mobility protocol and skin assessment per protocol for pressure ulcer prevention - Monitor hemodynamics closely - continue other care per attending / other consultants .... care plan discussed at length with daughter in room. CONDITION: IMPROVED PROGNOSIS: GUARDED CODE STATUS: FULL CODE Subjective Date of service: 12/24/19 Principal diagnosis: Severe Sepsis with Shock; Pneumonia; Ac hypoxemic respfailure; CKD Interval history: Patient is seen today for: Severe Sepsis with Shock; Pneumonia; Acute hypoxic respiratory failure on MVS; Chronic kidney disease; Anemia; Thrombocytopenia; CHF (EF 45-50% on 10/2019); CVA with aphasia; Dementia; Oropharyngeal dysphagia s/p PEG Seen and examined at bedside; 24hour events reviewed; nursing and respiratory care staff consulted; no adverse overnight events reported to me; resting peacefully in bed; Objective Vital Signs - 12hr 12/24/19 12/24/19 12/24/19 06:01 07:00 08:00 Temperature 97.9 F Pulse Rate 89 88 87 Pulse Rate [ Anterior Bilateral Throughout] Pulse Rate [ 87 From Monitor] Respiratory 13 20 28 H Rate Respiratory Rate [Anterior Bilateral Throughout] Blood Pressure 150/76 134/64 O2 Sat by Pulse 97 91 95 Oximetry 12/24/19 12/24/19 12/24/19 08:01 08:43 08:44 Temperature Pulse Rate 89 Pulse Rate [ 90 Anterior Bilateral Throughout] Pulse Rate [ From Monitor] Respiratory 13 Rate Respiratory 20 Rate [Anterior Bilateral Throughout] Blood Pressure 149/87 O2 Sat by Pulse 98 97 Oximetry 12/24/19 12/24/19 12/24/19 09:01 09:07 09:08 Temperature Pulse Rate 90 95 H 94 H Pulse Rate [ Anterior Bilateral Throughout] Pulse Rate [ From Monitor] Respiratory 28 H Rate Respiratory Rate [Anterior Bilateral Throughout] Blood Pressure 137/86 137/86 137/86 O2 Sat by Pulse 98 Oximetry 12/24/19 12/24/19 12/24/19 10:01 11:01 12:00 Temperature 98.9 F Pulse Rate 86 88 86 Pulse Rate [ Anterior Bilateral Throughout] Pulse Rate [ 86 From Monitor] Respiratory 17 11 L 20 Rate Respiratory Rate [Anterior Bilateral Throughout] Blood Pressure 139/67 141/78 O2 Sat by Pulse 99 97 95 Oximetry 12/24/19 12/24/19 12/24/19 12:01 13:00 14:00 Temperature Pulse Rate 87 86 86 Pulse Rate [ Anterior Bilateral Throughout] Pulse Rate [ From Monitor] Respiratory 25 H 21 26 H Rate Respiratory Rate [Anterior Bilateral Throughout] Blood Pressure 119/72 155/74 129/59 O2 Sat by Pulse 98 97 99 Oximetry 12/24/19 12/24/19 12/24/19 15:01 15:10 16:00 Temperature 96.6 F L Pulse Rate 85 91 H Pulse Rate [ 87 Anterior Bilateral Throughout] Pulse Rate [ 94 H From Monitor] Respiratory 29 H 20 Rate Respiratory 14 Rate [Anterior Bilateral Throughout] Blood Pressure 124/69 131/67 O2 Sat by Pulse 96 95 Oximetry 12/24/19 17:00 Temperature Pulse Rate 90 Pulse Rate [ Anterior Bilateral Throughout] Pulse Rate [ From Monitor] Respiratory 41 H Rate Respiratory Rate [Anterior Bilateral Throughout] Blood Pressure 130/76 O2 Sat by Pulse 96 Oximetry Constitutional: no acute distress, other (elderly and chronically ill looking, atraumatic, normocephalic) Eyes: non-icteric, other (orally intubated ETT at 23cm, no patient-ventilator dys-synchrony) ENT: oropharynx moist, other (ETT 23 cm ELISEO) Neck: supple, no JVD Effort: mildly labored Ascultation: Bilateral: diminished breath sounds, rhonchi Percussion: Bilateral: not dull Cardiovascular: regular rate and rhythm, other (S1,S2, no murmurs) Gastrointestinal: normoactive bowel sounds, soft, non-tender, non-distended, oth er (PEG in place) Integumentary: normal Extremities: no cyanosis, no edema, pulses normal, no ischemia or petechiae Neurologic: non-focal exam (grossly), pupils equal and round, other (somnolent; weak) Psychiatric: mood appropriate, affect normal CBC and BMP: 12/24/19 04:59 12/24/19 04:59 ABG, PT/INR, D-dimer: ABG ABG pH 7.442 pH Units (7.350-7.450) 12/23/19 14:07 ABG pCO2 47.0 mm Hg 12/23/19 14:07 ABG pO2 78.0 mm Hg (80.0-90.0) L 12/23/19 14:07 ABG O2 Saturation 96.8 % (95.0-99.0) 12/23/19 14:07 PT/INR, D-dimer PT 15.1 Sec. (12.2-14.9) H 12/12/19 05:00 INR 1.17 (0.87-1.13) H 12/12/19 05:00 Abnormal lab findings: Abnormal Labs 12/12/19 12/12/19 12/12/19 04:35 05:00 05:00 RBC 2.39 L Hgb 7.7 L Hct 23.1 L MCV 97 H RDW 18.8 H Plt Count Lymph % (Auto) 9.9 L [place] % (Auto) Eos % (Auto) Lymph # 0.5 L Seg Neutrophils % 86.5 H Seg Neutrophils # PT INR ABG pH ABG pO2 ABG HCO3 ABG O2 Saturation ABG Base Excess ABG Hemoglobin Oxyhemoglobin Sodium Potassium Chloride Carbon Dioxide 19 L BUN 51 H Creatinine 1.9 H Glucose 117 H POC Glucose 129 H Lactic Acid Calcium AST 46 H ALT 72 H Troponin T 0.080 H Albumin 2.2 L LDL Cholesterol Direct 38 L Vancomycin Trough Crossmatch 12/12/19 12/12/19 12/12/19 05:00 05:00 05:00 RBC Hgb Hct MCV RDW Plt Count Lymph % (Auto) [place] % (Auto) Eos % (Auto) Lymph # Seg Neutrophils % Seg Neutrophils # PT 15.1 H INR 1.17 H ABG pH 7.320 L ABG pO2 95.6 H ABG HCO3 18.2 L ABG O2 Saturation 99.5 H ABG Base Excess -7.2 L ABG Hemoglobin 7.3 L Oxyhemoglobin 94.9 L Sodium Potassium Chloride Carbon Dioxide BUN Creatinine Glucose POC Glucose Lactic Acid 7.90 H* Calcium AST ALT Troponin T Albumin LDL Cholesterol Direct Vancomycin Trough Crossmatch 12/12/19 12/12/19 12/12/19 05:00 07:04 08:10 RBC Hgb Hct MCV RDW Plt Count Lymph % (Auto) [place] % (Auto) Eos % (Auto) Lymph # Seg Neutrophils % Seg Neutrophils # PT INR ABG pH ABG pO2 ABG HCO3 ABG O2 Saturation ABG Base Excess ABG Hemoglobin Oxyhemoglobin Sodium Potassium Chloride Carbon Dioxide BUN Creatinine Glucose POC Glucose Lactic Acid 7.30 H* 6.40 H* Calcium AST ALT Troponin T Albumin LDL Cholesterol Direct Vancomycin Trough Crossmatch See Detail 12/12/19 12/12/19 12/12/19 15:01 18:48 Unknown RBC Hgb Hct MCV RDW Plt Count Lymph % (Auto) [place] % (Auto) Eos % (Auto) Lymph # Seg Neutrophils % Seg Neutrophils # PT INR ABG pH ABG pO2 ABG HCO3 ABG O2 Saturation ABG Base Excess ABG Hemoglobin Oxyhemoglobin Sodium Potassium Chloride Carbon Dioxide BUN Creatinine Glucose POC Glucose 62 L Lactic Acid 2.90 H* 4.30 H* Calcium AST ALT Troponin T Albumin LDL Cholesterol Direct Vancomycin Trough Crossmatch 12/13/19 12/13/19 12/13/19 04:56 04:56 05:40 RBC 2.24 L Hgb 7.1 L Hct 21.6 L MCV 96 H RDW 19.9 H Plt Count 135 L Lymph % (Auto) 11.6 L [place] % (Auto) Eos % (Auto) Lymph # 1.1 L Seg Neutrophils % 79.2 H Seg Neutrophils # 7.8 H PT INR ABG pH ABG pO2 ABG HCO3 17.3 L ABG O2 Saturation ABG Base Excess -7.2 L ABG Hemoglobin 7.8 L Oxyhemoglobin Sodium Potassium Chloride 111.8 H Carbon Dioxide 16 L BUN 39 H Creatinine 1.6 H Glucose 101 H POC Glucose Lactic Acid Calcium AST ALT Troponin T Albumin LDL Cholesterol Direct Vancomycin Trough Crossmatch 12/13/19 12/13/19 12/14/19 18:05 23:24 04:22 RBC Hgb Hct MCV RDW Plt Count Lymph % (Auto) [place] % (Auto) Eos % (Auto) Lymph # Seg Neutrophils % Seg Neutrophils # PT INR ABG pH ABG pO2 156.5 H ABG HCO3 17.3 L ABG O2 Saturation ABG Base Excess -7.6 L ABG Hemoglobin 5.5 L Oxyhemoglobin Sodium Potassium Chloride Carbon Dioxide BUN Creatinine Glucose POC Glucose 165 H 110 H Lactic Acid Calcium AST ALT Troponin T Albumin LDL Cholesterol Direct Vancomycin Trough Crossmatch 12/14/19 12/14/19 12/14/19 06:18 06:45 06:45 RBC 1.98 L Hgb 6.3 L Hct 19.4 L* MCV 98 H RDW 20.3 H Plt Count 103 L Lymph % (Auto) 9.7 L [place] % (Auto) Eos % (Auto) Lymph # 0.9 L Seg Neutrophils % 81.4 H Seg Neutrophils # 7.8 H PT INR ABG pH ABG pO2 ABG HCO3 ABG O2 Saturation ABG Base Excess ABG Hemoglobin Oxyhemoglobin Sodium Potassium Chloride 115.3 H Carbon Dioxide 17 L BUN 38 H Creatinine 1.7 H Glucose 117 H POC Glucose 138 H Lactic Acid Calcium AST ALT Troponin T Albumin LDL Cholesterol Direct Vancomycin Trough Crossmatch 12/14/19 12/14/19 12/14/19 12:54 17:35 23:35 RBC Hgb Hct MCV RDW Plt Count Lymph % (Auto) [place] % (Auto) Eos % (Auto) Lymph # Seg Neutrophils % Seg Neutrophils # PT INR ABG pH ABG pO2 ABG HCO3 ABG O2 Saturation ABG Base Excess ABG Hemoglobin Oxyhemoglobin Sodium Potassium Chloride Carbon Dioxide BUN Creatinine Glucose POC Glucose 127 H 163 H 116 H Lactic Acid Calcium AST ALT Troponin T Albumin LDL Cholesterol Direct Vancomycin Trough Crossmatch 12/15/19 12/15/1920 04:10 05:30 05:30 RBC 2.97 L Hgb 9.4 L D Hct 28.3 L D MCV 95 H RDW 17.8 H Plt Count 101 L Lymph % (Auto) 5.2 L [place] % (Auto) Eos % (Auto) Lymph # 0.5 L Seg Neutrophils % 87.5 H Seg Neutrophils # 8.2 H PT INR ABG pH ABG pO2 71.3 L ABG HCO3 16.5 L ABG O2 Saturation ABG Base Excess -7.9 L ABG Hemoglobin 10.9 L Oxyhemoglobin 93.4 L Sodium Potassium Chloride Carbon Dioxide BUN Creatinine Glucose POC Glucose Lactic Acid Calcium AST ALT Troponin T Albumin LDL Cholesterol Direct Vancomycin Trough 23.6 H Crossmatch 12/15/19 12/15/19 12/15/19 05:30 12:35 17:24 RBC Hgb Hct MCV RDW Plt Count Lymph % (Auto) [place] % (Auto) Eos % (Auto) Lymph # Seg Neutrophils % Seg Neutrophils # PT INR ABG pH ABG pO2 ABG HCO3 ABG O2 Saturation ABG Base Excess ABG Hemoglobin Oxyhemoglobin Sodium Potassium Chloride 117.0 H Carbon Dioxide 14 L BUN 35 H Creatinine Glucose POC Glucose 120 H 155 H Lactic Acid Calcium 10.3 H AST ALT Troponin T Albumin LDL Cholesterol Direct Vancomycin Trough Crossmatch 12/16/19 12/16/19 12/16/19 04:30 05:38 06:30 RBC 3.04 L Hgb 9.6 L Hct 29.1 L MCV 96 H RDW 17.5 H Plt Count 105 L Lymph % (Auto) [place] % (Auto) Eos % (Auto) Lymph # Seg Neutrophils % Seg Neutrophils # PT INR ABG pH ABG pO2 146.9 H ABG HCO3 18.0 L ABG O2 Saturation ABG Base Excess -6.5 L ABG Hemoglobin 8.9 L Oxyhemoglobin Sodium Potassium Chloride Carbon Dioxide BUN Creatinine Glucose POC Glucose 128 H Lactic Acid Calcium AST ALT Troponin T Albumin LDL Cholesterol Direct Vancomycin Trough Crossmatch 12/16/19 12/16/19 12/17/19 12:10 17:52 04:40 RBC Hgb Hct MCV RDW Plt Count Lymph % (Auto) [place] % (Auto) Eos % (Auto) Lymph # Seg Neutrophils % Seg Neutrophils # PT INR ABG pH ABG pO2 109.1 H ABG HCO3 ABG O2 Saturation ABG Base Excess -4.6 L ABG Hemoglobin 10.9 L Oxyhemoglobin Sodium Potassium Chloride Carbon Dioxide BUN Creatinine Glucose POC Glucose 124 H 136 H Lactic Acid Calcium AST ALT Troponin T Albumin LDL Cholesterol Direct Vancomycin Trough Crossmatch 12/17/19 12/17/19 12/17/19 05:18 11:45 17:27 RBC Hgb Hct MCV RDW Plt Count Lymph % (Auto) [place] % (Auto) Eos % (Auto) Lymph # Seg Neutrophils % Seg Neutrophils # PT INR ABG pH ABG pO2 ABG HCO3 ABG O2 Saturation ABG Base Excess ABG Hemoglobin Oxyhemoglobin Sodium Potassium Chloride Carbon Dioxide BUN Creatinine Glucose POC Glucose 140 H 116 H 110 H Lactic Acid Calcium AST ALT Troponin T Albumin LDL Cholesterol Direct Vancomycin Trough Crossmatch 12/18/19 12/18/19 12/18/19 00:48 04:23 04:30 RBC 3.49 L Hgb 10.8 L Hct 32.8 L MCV RDW 17.9 H Plt Count 103 L Lymph % (Auto) [place] % (Auto) 8.4 H Eos % (Auto) 4.8 H Lymph # 1.0 L Seg Neutrophils % 73.0 H Seg Neutrophils # PT INR ABG pH ABG pO2 ABG HCO3 ABG O2 Saturation ABG Base Excess ABG Hemoglobin 10.0 L Oxyhemoglobin Sodium Potassium Chloride Carbon Dioxide BUN Creatinine Glucose POC Glucose 128 H Lactic Acid Calcium AST ALT Troponin T Albumin LDL Cholesterol Direct Vancomycin Trough Crossmatch 12/18/19 12/18/19 12/18/19 06:37 12:30 19:00 RBC Hgb Hct MCV RDW Plt Count Lymph % (Auto) [place] % (Auto) Eos % (Auto) Lymph # Seg Neutrophils % Seg Neutrophils # PT INR ABG pH ABG pO2 ABG HCO3 ABG O2 Saturation ABG Base Excess ABG Hemoglobin Oxyhemoglobin Sodium Potassium Chloride Carbon Dioxide BUN Creatinine Glucose POC Glucose 132 H 127 H 130 H Lactic Acid Calcium AST ALT Troponin T Albumin LDL Cholesterol Direct Vancomycin Trough Crossmatch 12/19/19 12/19/19 12/19/19 05:51 12:41 14:43 RBC Hgb Hct MCV RDW Plt Count Lymph % (Auto) [place] % (Auto) Eos % (Auto) Lymph # Seg Neutrophils % Seg Neutrophils # PT INR ABG pH ABG pO2 93.5 H ABG HCO3 26.1 H ABG O2 Saturation ABG Base Excess ABG Hemoglobin 9.9 L Oxyhemoglobin Sodium 147 H Potassium 3.5 L Chloride 114.3 H Carbon Dioxide 21 L D BUN 37 H Creatinine Glucose 119 H POC Glucose 123 H Lactic Acid Calcium 11.8 H AST ALT Troponin T Albumin LDL Cholesterol Direct Vancomycin Trough Crossmatch 12/20/19 12/20/19 12/20/19 04:19 12:58 23:56 RBC Hgb Hct MCV RDW Plt Count Lymph % (Auto) [place] % (Auto) Eos % (Auto) Lymph # Seg Neutrophils % Seg Neutrophils # PT INR ABG pH ABG pO2 ABG HCO3 27.0 H ABG O2 Saturation ABG Base Excess ABG Hemoglobin Oxyhemoglobin 94.2 L Sodium Potassium Chloride Carbon Dioxide BUN Creatinine Glucose POC Glucose 118 H 67 L Lactic Acid Calcium AST ALT Troponin T Albumin LDL Cholesterol Direct Vancomycin Trough Crossmatch 12/21/19 12/21/19 12/21/19 05:22 12:51 18:08 RBC Hgb Hct MCV RDW Plt Count Lymph % (Auto) [place] % (Auto) Eos % (Auto) Lymph # Seg Neutrophils % Seg Neutrophils # PT INR ABG pH ABG pO2 ABG HCO3 ABG O2 Saturation ABG Base Excess ABG Hemoglobin Oxyhemoglobin Sodium Potassium Chloride Carbon Dioxide BUN Creatinine Glucose POC Glucose 120 H 115 H 118 H Lactic Acid Calcium AST ALT Troponin T Albumin LDL Cholesterol Direct Vancomycin Trough Crossmatch 12/21/19 12/22/19 12/22/19 23:42 05:53 12:40 RBC Hgb Hct MCV RDW Plt Count Lymph % (Auto) [place] % (Auto) Eos % (Auto) Lymph # Seg Neutrophils % Seg Neutrophils # PT INR ABG pH ABG pO2 ABG HCO3 ABG O2 Saturation ABG Base Excess ABG Hemoglobin Oxyhemoglobin Sodium Potassium Chloride Carbon Dioxide BUN Creatinine Glucose POC Glucose 109 H 111 H 109 H Lactic Acid Calcium AST ALT Troponin T Albumin LDL Cholesterol Direct Vancomycin Trough Crossmatch 12/22/19 12/22/19 12/23/19 17:59 20:20 04:04 RBC 3.30 L Hgb 10.3 L Hct 31.0 L MCV RDW 16.7 H Plt Count 102 L Lymph % (Auto) [place] % (Auto) Eos % (Auto) Lymph # Seg Neutrophils % Seg Neutrophils # PT INR ABG pH 7.452 H ABG pO2 ABG HCO3 29.9 H ABG O2 Saturation ABG Base Excess 5.4 H ABG Hemoglobin 10.2 L Oxyhemoglobin Sodium Potassium Chloride Carbon Dioxide BUN Creatinine Glucose POC Glucose 109 H Lactic Acid Calcium AST ALT Troponin T Albumin LDL Cholesterol Direct Vancomycin Trough Crossmatch 12/23/19 12/23/19 12/23/19 04:04 14:07 18:05 RBC Hgb Hct MCV RDW Plt Count Lymph % (Auto) [place] % (Auto) Eos % (Auto) Lymph # Seg Neutrophils % Seg Neutrophils # PT INR ABG pH ABG pO2 78.0 L ABG HCO3 31.3 H ABG O2 Saturation ABG Base Excess 6.4 H ABG Hemoglobin 10.2 L Oxyhemoglobin 94.7 L Sodium Potassium Chloride Carbon Dioxide BUN 35 H Creatinine Glucose POC Glucose 58 L Lactic Acid Calcium 11.2 H AST ALT Troponin T Albumin LDL Cholesterol Direct Vancomycin Trough Crossmatch 12/24/19 12/24/19 04:59 04:59 RBC 3.12 L Hgb 9.8 L Hct 29.2 L MCV RDW 17.1 H Plt Count 107 L Lymph % (Auto) [place] % (Auto) Eos % (Auto) Lymph # Seg Neutrophils % Seg Neutrophils # PT INR ABG pH ABG pO2 ABG HCO3 ABG O2 Saturation ABG Base Excess ABG Hemoglobin Oxyhemoglobin Sodium Potassium Chloride Carbon Dioxide BUN 33 H Creatinine Glucose POC Glucose Lactic Acid Calcium 11.2 H AST ALT Troponin T Albumin LDL Cholesterol Direct Vancomycin Trough Crossmatch Allied health notes reviewed: nursing
[2019-12-25] MEDS: IPRATROPIUM/ALBUTEROL SULFATE 3 ML AMPUL.NEB IH SCH ×4 (02:06→21:02)
[2019-12-25] MEDS: HEPARIN 5,000 UNIT/1 ML VIAL SUB-Q SCH ×3 (06:39→21:40)
--- NOTE | 2019-12-25 09:07 | Progress Note ---
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 Avoid hypoglycemia - Wean supplemental oxygen for target O2 sat's > 90% -ABG and CXR in am -Avoid nephrotoxins, adjust all medications for GFR and CrCL - continue bronchodilators with pulmonary hygiene per RT - continue to avoid benzodiazepines to reduce the possibility of delirium - prn analgesia per CPOT score - Maintenance of sleep-wake cycle, avoid delirium - PT/OT/ROM exercises - continue mobility protocol and skin assessment per protocol for pressure ulcer prevention - Monitor hemodynamics closely - continue other care per attending / other consultants CONDITION: FAIR PROGNOSIS: GUARDED CODE STATUS: FULL CODE Subjective Date of service: 12/25/19 Principal diagnosis: Severe Sepsis with Shock; Pneumonia; Ac hypoxemic respfail ure; CKD Objective Vital Signs - 12hr 12/24/19 12/24/19 12/24/19 22:00 22:03 22:04 Temperature Pulse Rate 95 H 93 H 94 H Pulse Rate [ Anterior Bilateral Throughout] Respiratory 33 H Rate Respiratory Rate [Anterior Bilateral Throughout] Blood Pressure 147/78 147/78 147/78 O2 Sat by Pulse 99 Oximetry 12/24/19 12/25/19 12/25/19 23:00 00:00 01:01 Temperature 98.2 F Pulse Rate 96 H 97 H 96 H Pulse Rate [ Anterior Bilateral Throughout] Respiratory 27 H 34 H 25 H Rate Respiratory Rate [Anterior Bilateral Throughout] Blood Pressure 143/82 150/83 162/93 O2 Sat by Pulse 96 96 95 Oximetry 12/25/19 12/25/19 12/25/19 02:00 03:00 04:00 Temperature 98.6 F Pulse Rate 90 88 86 Pulse Rate [ 90 Anterior Bilateral Throughout] Respiratory 21 35 H 34 H Rate Respiratory 28 H Rate [Anterior Bilateral Throughout] Blood Pressure 141/69 129/59 142/71 O2 Sat by Pulse 97 97 96 Oximetry 12/25/19 12/25/19 05:00 06:00 Temperature Pulse Rate 84 93 H Pulse Rate [ Anterior Bilateral Throughout] Respiratory 32 H 20 Rate Respiratory Rate [Anterior Bilateral Throughout] Blood Pressure 124/61 139/85 O2 Sat by Pulse 97 95 Oximetry Constitutional: no acute distress, other (elderly and chronically ill looking, atraumatic, normocephalic) Eyes: non-icteric, other (orally intubated ETT at 23cm, no patient-ventilator dys-synchrony) ENT: oropharynx moist, other (ETT 23 cm ELISEO) Neck: supple, no JVD Effort: mildly labored Ascultation: Bilateral: diminished breath sounds, rhonchi Percussion: Bilateral: not dull Cardiovascular: regular rate and rhythm, other (S1,S2, no murmurs) Gastrointestinal: normoactive bowel sounds, soft, non-tender, non-distended, other (PEG in place) Integumentary: normal Extremities: no cyanosis, no edema, pulses normal, no ischemia or petechiae Neurologic: non-focal exam (grossly), pupils equal and round, other (somnolent; weak) Psychiatric: mood appropriate, affect normal CBC and BMP: 12/24/19 04:59 12/24/19 04:59 ABG, PT/INR, D-dimer: ABG ABG pH 7.442 pH Units (7.350-7.450) 12/23/19 14:07 ABG pCO2 47.0 mm Hg 12/23/19 14:07 ABG pO2 78.0 mm Hg (80.0-90.0) L 12/23/19 14:07 ABG O2 Saturation 96.8 % (95.0-99.0) 12/23/19 14:07 PT/INR, D-dimer PT 15.1 Sec. (12.2-14.9) H 12/12/19 05:00 INR 1.17 (0.87-1.13) H 12/12/19 05:00 Abnormal lab findings: Abnormal Labs 12/12/19 12/12/19 12/12/19 04:35 05:00 05:00 RBC 2.39 L Hgb 7.7 L Hct 23.1 L MCV 97 H RDW 18.8 H Plt Count Lymph % (Auto) 9.9 L [place] % (Auto) Eos % (Auto) Lymph # 0.5 L Seg Neutrophils % 86.5 H Seg Neutrophils # PT INR ABG pH ABG pO2 ABG HCO3 ABG O2 Saturation ABG Base Excess ABG Hemoglobin Oxyhemoglobin Sodium Potassium Chloride Carbon Dioxide 19 L BUN 51 H Creatinine 1.9 H Glucose 117 H POC Glucose 129 H Lactic Acid Calcium AST 46 H ALT 72 H Troponin T 0.080 H Albumin 2.2 L LDL Cholesterol Direct 38 L Vancomycin Trough Crossmatch 12/12/19 12/12/19 12/12/19 05:00 05:00 05:00 RBC Hgb Hct MCV RDW Plt Count Lymph % (Auto) [place] % (Auto) Eos % (Auto) Lymph # Seg Neutrophils % Seg Neutrophils # PT 15.1 H INR 1.17 H ABG pH 7.320 L ABG pO2 95.6 H ABG HCO3 18.2 L ABG O2 Saturation 99.5 H ABG Base Excess -7.2 L ABG Hemoglobin 7.3 L Oxyhemoglobin 94.9 L Sodium Potassium Chloride Carbon Dioxide BUN Creatinine Glucose POC Glucose Lactic Acid 7.90 H* Calcium AST ALT Troponin T Albumin LDL Cholesterol Direct Vancomycin Trough Crossmatch 12/12/19 12/12/19 12/12/19 05:00 07:04 08:10 RBC Hgb Hct MCV RDW Plt Count Lymph % (Auto) [place] % (Auto) Eos % (Auto) Lymph # Seg Neutrophils % Seg Neutrophils # PT INR ABG pH ABG pO2 ABG HCO3 ABG O2 Saturation ABG Base Excess ABG Hemoglobin Oxyhemoglobin Sodium Potassium Chloride Carbon Dioxide BUN Creatinine Glucose POC Glucose Lactic Acid 7.30 H* 6.40 H* Calcium AST ALT Troponin T Albumin LDL Cholesterol Direct Vancomycin Trough Crossmatch See Detail 12/12/19 12/12/19 12/12/19 15:01 18:48 Unknown RBC Hgb Hct MCV RDW Plt Count Lymph % (Auto) [place] % (Auto) Eos % (Auto) Lymph # Seg Neutrophils % Seg Neutrophils # PT INR ABG pH ABG pO2 ABG HCO3 ABG O2 Saturation ABG Base Excess ABG Hemoglobin Oxyhemoglobin Sodium Potassium Chloride Carbon Dioxide BUN Creatinine Glucose POC Glucose 62 L Lactic Acid 2.90 H* 4.30 H* Calcium AST ALT Troponin T Albumin LDL Cholesterol Direct Vancomycin Trough Crossmatch 12/13/19 12/13/19 12/13/19 04:56 04:56 05:40 RBC 2.24 L Hgb 7.1 L Hct 21.6 L MCV 96 H RDW 19.9 H Plt Count 135 L Lymph % (Auto) 11.6 L [place] % (Auto) Eos % (Auto) Lymph # 1.1 L Seg Neutrophils % 79.2 H Seg Neutrophils # 7.8 H PT INR ABG pH ABG pO2 ABG HCO3 17.3 L ABG O2 Saturation ABG Base Excess -7.2 L ABG Hemoglobin 7.8 L Oxyhemoglobin Sodium Potassium Chloride 111.8 H Carbon Dioxide 16 L BUN 39 H Creatinine 1.6 H Glucose 101 H POC Glucose Lactic Acid Calcium AST ALT Troponin T Albumin LDL Cholesterol Direct Vancomycin Trough Crossmatch 12/13/19 12/13/19 12/14/19 18:05 23:24 04:22 RBC Hgb Hct MCV RDW Plt Count Lymph % (Auto) [place] % (Auto) Eos % (Auto) Lymph # Seg Neutrophils % Seg Neutrophils # PT INR ABG pH ABG pO2 156.5 H ABG HCO3 17.3 L ABG O2 Saturation ABG Base Excess -7.6 L ABG Hemoglobin 5.5 L Oxyhemoglobin Sodium Potassium Chloride Carbon Dioxide BUN Creatinine Glucose POC Glucose 165 H 110 H Lactic Acid Calcium AST ALT Troponin T Albumin LDL Cholesterol Direct Vancomycin Trough Crossmatch 12/14/19 12/14/19 12/14/19 06:18 06:45 06:45 RBC 1.98 L Hgb 6.3 L Hct 19.4 L* MCV 98 H RDW 20.3 H Plt Count 103 L Lymph % (Auto) 9.7 L [place] % (Auto) Eos % (Auto) Lymph # 0.9 L Seg Neutrophils % 81.4 H Seg Neutrophils # 7.8 H PT INR ABG pH ABG pO2 ABG HCO3 ABG O2 Saturation ABG Base Excess ABG Hemoglobin Oxyhemoglobin Sodium Potassium Chloride 115.3 H Carbon Dioxide 17 L BUN 38 H Creatinine 1.7 H Glucose 117 H POC Glucose 138 H Lactic Acid Calcium AST ALT Troponin T Albumin LDL Cholesterol Direct Vancomycin Trough Crossmatch 12/14/19 12/14/19 12/14/19 12:54 17:35 23:35 RBC Hgb Hct MCV RDW Plt Count Lymph % (Auto) [place] % (Auto) Eos % (Auto) Lymph # Seg Neutrophils % Seg Neutrophils # PT INR ABG pH ABG pO2 ABG HCO3 ABG O2 Saturation ABG Base Excess ABG Hemoglobin Oxyhemoglobin Sodium Potassium Chloride Carbon Dioxide BUN Creatinine Glucose POC Glucose 127 H 163 H 116 H Lactic Acid Calcium AST ALT Troponin T Albumin LDL Cholesterol Direct Vancomycin Trough Crossmatch 12/15/19 12/15/19 12/15/19 04:10 05:30 05:30 RBC 2.97 L Hgb 9.4 L D Hct 28.3 L D MCV 95 H RDW 17.8 H Plt Count 101 L Lymph % (Auto) 5.2 L [place] % (Auto) Eos % (Auto) Lymph # 0.5 L Seg Neutrophils % 87.5 H Seg Neutrophils # 8.2 H PT INR ABG pH ABG pO2 71.3 L ABG HCO3 16.5 L ABG O2 Saturation ABG Base Excess -7.9 L ABG Hemoglobin 10.9 L Oxyhemoglobin 93.4 L Sodium Potassium Chloride Carbon Dioxide BUN Creatinine Glucose POC Glucose Lactic Acid Calcium AST ALT Troponin T Albumin LDL Cholesterol Direct Vancomycin Trough 23.6 H Crossmatch 12/15/19 12/15/19 12/15/19 05:30 12:35 17:24 RBC Hgb Hct MCV RDW Plt Count Lymph % (Auto) [place] % (Auto) Eos % (Auto) Lymph # Seg Neutrophils % Seg Neutrophils # PT INR ABG pH ABG pO2 ABG HCO3 ABG O2 Saturation ABG Base Excess ABG Hemoglobin Oxyhemoglobin Sodium Potassium Chloride 117.0 H Carbon Dioxide 14 L BUN 35 H Creatinine Glucose POC Glucose 120 H 155 H Lactic Acid Calcium 10.3 H AST ALT Troponin T Albumin LDL Cholesterol Direct Vancomycin Trough Crossmatch 12/16/19 12/16/19 12/16/19 04:30 05:38 06:30 RBC 3.04 L Hgb 9.6 L Hct 29.1 L MCV 96 H RDW 17.5 H Plt Count 105 L Lymph % (Auto) [place] % (Auto) Eos % (Auto) Lymph # Seg Neutrophils % Seg Neutrophils # PT INR ABG pH ABG pO2 146.9 H ABG HCO3 18.0 L ABG O2 Saturation ABG Base Excess -6.5 L ABG Hemoglobin 8.9 L Oxyhemoglobin Sodium Potassium Chloride Carbon Dioxide BUN Creatinine Glucose POC Glucose 128 H Lactic Acid Calcium AST ALT Troponin T Albumin LDL Cholesterol Direct Vancomycin Trough Crossmatch 12/16/19 12/16/19 12/17/19 12:10 17:52 04:40 RBC Hgb Hct MCV RDW Plt Count Lymph % (Auto) [place] % (Auto) Eos % (Auto) Lymph # Seg Neutrophils % Seg Neutrophils # PT INR ABG pH ABG pO2 109.1 H ABG HCO3 ABG O2 Saturation ABG Base Excess -4.6 L ABG Hemoglobin 10.9 L Oxyhemoglobin Sodium Potassium Chloride Carbon Dioxide BUN Creatinine Glucose POC Glucose 124 H 136 H Lactic Acid Calcium AST ALT Troponin T Albumin LDL Cholesterol Direct Vancomycin Trough Crossmatch 12/17/19 12/17/19 12/17/19 05:18 11:45 17:27 RBC Hgb Hct MCV RDW Plt Count Lymph % (Auto) [place] % (Auto) Eos % (Auto) Lymph # Seg Neutrophils % Seg Neutrophils # PT INR ABG pH ABG pO2 ABG HCO3 ABG O2 Saturation ABG Base Excess ABG Hemoglobin Oxyhemoglobin Sodium Potassium Chloride Carbon Dioxide BUN Creatinine Glucose POC Glucose 140 H 116 H 110 H Lactic Acid Calcium AST ALT Troponin T Albumin LDL Cholesterol Direct Vancomycin Trough Crossmatch 12/18/19 12/18/19 12/18/19 00:48 04:23 04:30 RBC 3.49 L Hgb 10.8 L Hct 32.8 L MCV RDW 17.9 H Plt Count 103 L Lymph % (Auto) [place] % (Auto) 8.4 H Eos % (Auto) 4.8 H Lymph # 1.0 L Seg Neutrophils % 73.0 H Seg Neutrophils # PT INR ABG pH ABG pO2 ABG HCO3 ABG O2 Saturation ABG Base Excess ABG Hemoglobin 10.0 L Oxyhemoglobin Sodium Potassium Chloride Carbon Dioxide BUN Creatinine Glucose POC Glucose 128 H Lactic Acid Calcium AST ALT Troponin T Albumin LDL Cholesterol Direct Vancomycin Trough Crossmatch 12/18/19 12/18/19 12/18/19 06:37 12:30 19:00 RBC Hgb Hct MCV RDW Plt Count Lymph % (Auto) [place] % (Auto) Eos % (Auto) Lymph # Seg Neutrophils % Seg Neutrophils # PT INR ABG pH ABG pO2 ABG HCO3 ABG O2 Saturation ABG Base Excess ABG Hemoglobin Oxyhemoglobin Sodium Potassium Chloride Carbon Dioxide BUN Creatinine Glucose POC Glucose 132 H 127 H 130 H Lactic Acid Calcium AST ALT Troponin T Albumin LDL Cholesterol Direct Vancomycin Trough Crossmatch 12/19/19 12/19/19 12/19/19 05:51 12:41 14:43 RBC Hgb Hct MCV RDW Plt Count Lymph % (Auto) [place] % (Auto) Eos % (Auto) Lymph # Seg Neutrophils % Seg Neutrophils # PT INR ABG pH ABG pO2 93.5 H ABG HCO3 26.1 H ABG O2 Saturation ABG Base Excess ABG Hemoglobin 9.9 L Oxyhemoglobin Sodium 147 H Potassium 3.5 L Chloride 114.3 H Carbon Dioxide 21 L D BUN 37 H Creatinine Glucose 119 H POC Glucose 123 H Lactic Acid Calcium 11.8 H AST ALT Troponin T Albumin LDL Cholesterol Direct Vancomycin Trough Crossmatch 12/20/19 12/20/19 12/20/19 04:19 12:58 23:56 RBC Hgb Hct MCV RDW Plt Count Lymph % (Auto) [place] % (Auto) Eos % (Auto) Lymph # Seg Neutrophils % Seg Neutrophils # PT INR ABG pH ABG pO2 ABG HCO3 27.0 H ABG O2 Saturation ABG Base Excess ABG Hemoglobin Oxyhemoglobin 94.2 L Sodium Potassium Chloride Carbon Dioxide BUN Creatinine Glucose POC Glucose 118 H 67 L Lactic Acid Calcium AST ALT Troponin T Albumin LDL Cholesterol Direct Vancomycin Trough Crossmatch 12/21/19 12/21/19 12/21/19 05:22 12:51 18:08 RBC Hgb Hct MCV RDW Plt Count Lymph % (Auto) [place] % (Auto) Eos % (Auto) Lymph # Seg Neutrophils % Seg Neutrophils # PT INR ABG pH ABG pO2 ABG HCO3 ABG O2 Saturation ABG Base Excess ABG Hemoglobin Oxyhemoglobin Sodium Potassium Chloride Carbon Dioxide BUN Creatinine Glucose POC Glucose 120 H 115 H 118 H Lactic Acid Calcium AST ALT Troponin T Albumin LDL Cholesterol Direct Vancomycin Trough Crossmatch 12/21/19 12/22/19 12/22/19 23:42 05:53 12:40 RBC Hgb Hct MCV RDW Plt Count Lymph % (Auto) [place] % (Auto) Eos % (Auto) Lymph # Seg Neutrophils % Seg Neutrophils # PT INR ABG pH ABG pO2 ABG HCO3 ABG O2 Saturation ABG Base Excess ABG Hemoglobin Oxyhemoglobin Sodium Potassium Chloride Carbon Dioxide BUN Creatinine Glucose POC Glucose 109 H 111 H 109 H Lactic Acid Calcium AST ALT Troponin T Albumin LDL Cholesterol Direct Vancomycin Trough Crossmatch 12/22/19 12/22/19 12/23/19 17:59 20:20 04:04 RBC 3.30 L Hgb 10.3 L Hct 31.0 L MCV RDW 16.7 H Plt Count 102 L Lymph % (Auto) [place] % (Auto) Eos % (Auto) Lymph # Seg Neutrophils % Seg Neutrophils # PT INR ABG pH 7.452 H ABG pO2 ABG HCO3 29.9 H ABG O2 Saturation ABG Base Excess 5.4 H ABG Hemoglobin 10.2 L Oxyhemoglobin Sodium Potassium Chloride Carbon Dioxide BUN Creatinine Glucose POC Glucose 109 H Lactic Acid Calcium AST ALT Troponin T Albumin LDL Cholesterol Direct Vancomycin Trough Crossmatch 12/23/19 12/23/19 12/23/19 04:04 14:07 18:05 RBC Hgb Hct MCV RDW Plt Count Lymph % (Auto) [place] % (Auto) Eos % (Auto) Lymph # Seg Neutrophils % Seg Neutrophils # PT INR ABG pH ABG pO2 78.0 L ABG HCO3 31.3 H ABG O2 Saturation ABG Base Excess 6.4 H ABG Hemoglobin 10.2 L Oxyhemoglobin 94.7 L Sodium Potassium Chloride Carbon Dioxide BUN 35 H Creatinine Glucose POC Glucose 58 L Lactic Acid Calcium 11.2 H AST ALT Troponin T Albumin LDL Cholesterol Direct Vancomycin Trough Crossmatch 12/24/19 12/24/19 04:59 04:59 RBC 3.12 L Hgb 9.8 L Hct 29.2 L MCV RDW 17.1 H Plt Count 107 L Lymph % (Auto) [place] % (Auto) Eos % (Auto) Lymph # Seg Neutrophils % Seg Neutrophils # PT INR ABG pH ABG pO2 ABG HCO3 ABG O2 Saturation ABG Base Excess ABG Hemoglobin Oxyhemoglobin Sodium Potassium Chloride Carbon Dioxide BUN 33 H Creatinine Glucose POC Glucose Lactic Acid Calcium 11.2 H AST ALT Troponin T Albumin LDL Cholesterol Direct Vancomycin Trough Crossmatch Allied health notes reviewed: nursing
[2019-12-25] MEDS: MULTIVITAMINS 5 ML ORAL LIQUID PO SCH (10:46)
[2019-12-25] MEDS: carvediloL 6.25 MG TAB PO SCH ×2 (10:46→21:40)
[2019-12-25] MEDS: hydrALAZINE 25 MG TAB PO SCH ×2 (10:46→21:40)
[2019-12-25] MEDS: ASPIRIN 81 MG TAB CHEW PO SCH (10:47)
[2019-12-25] MEDS: allopurinoL 300 MG TAB PO SCH (10:47)
[2019-12-25] MEDS: LANSOPRAZOLE 30 MG SOLUTAB FEEDTUBE SCH (10:47)
[2019-12-25] MEDS: FOLIC ACID 1 MG TAB PO SCH (10:47)
[2019-12-25] MEDS: SENNOSIDES ORAL LIQD 8.8 MG/5 ML ORAL LIQD FEEDTUBE SCH ×2 (10:49→21:40)
--- NOTE | 2019-12-25 13:18 | Discharge Summary ---
Providers - Providers Date of Admission: 12/12/19 07:52 Attending physician: TREVOR RIVERA MD 12/12/19 05:18 Consult to Dietitian/Nutrition [CONS] Routine Physician Instructions: Reason For Exam: Reason for Consult: Evaluate nutritional intake 12/12/19 07:51 Consult to Physician [CONS] Routine Comment: Consulting Provider: LAINE GARSIA Physician Instructions: Reason For Exam: acute respiratory failure 12/13/19 13:00 Consult to Physician [CONS] Routine Comment: Consulting Provider: ENID GAMING Physician Instructions: Reason For Exam: sepsis, high grade fevers 12/14/19 08:22 Consult to Physician [CONS] Routine Comment: Consulting Provider: FERNANDO MARIANO Physician Instructions: Reason For Exam: Severe anemia, hx of gastritis 12/14/19 09:01 Consult to Dietitian/Nutrition [CONS] Routine Physician Instructions: Reason For Exam: Reason for Consult: Evaluate nutritional intake 12/15/19 16:24 Consult to Wound/ET Nurse [CONS] Routine Reason For Exam: wound eval sacrum 12/17/19 10:52 Consult to PICC Line RN [CONS] Routine Reason For Exam: poor venous access Type Line:: Midline Primary care physician: [employer]ER Hospitalization Condition: Stable Hospital course: 79-year-old male with a past medical history of hypertension, dementia, chronic kidney disease, thrombocytopenia, dyslipidemia, CVA with aphasia s/p PEG placement, and recent admission here for bilateral pneumonia presents from retirement with alteration in mental status, respiratory distress, and hypoxia. In the ER Patient was tachypneic with a saturation of 89 to 90% on nonrebreather, systolic pressure 160s. Patient also having intermittent coughing with accessory muscle use. He was intubate in the ER and place a central line for resuscitation and stabilization. He is being admitted to ICU for further evaluation and Mx. Family considered hospice but decided against it. (1) Acute encephalopathy Current Visit: Yes Status: Acute Plan to address problem: Multifactorial secondary to sepsis on underlying dementia. Prognosis remains guarded. Dementia has progressed. Overall global cognition unchanged. Remains poor poor global functioning remains (2) Acute respiratory failure Current Visit: Yes Status: Acute Plan to address problem: Patient successfully extubated (3) sepsis secondary to bilateral pneumonia Current Visit: Yes Status: Acute Plan to address problem: Continue present antibiotic coverage. Follow-up culture and future culture data. No fever now off Zyvox. Cultures have remained negative (4) Dementia Current Visit: Yes Status: Acute Plan to address problem: Most likely worsening advanced dementia. Prognosis remains guarded. (5) Septic shock Current Visit: Yes Status: Acute Plan to address problem: Resolved. Patient now off any pressor. (6) JULIA (acute kidney injury) secondary to vasomotor nephropathy Current Visit: No Status: Acute Plan to address problem: Patient with acute on most likely chronic renal insufficiency secondary to prerenal azotemia. Now resolved (7) Aspiration pneumonia Current Visit: No Status: Acute Plan to address problem: Status post PEG tube placement was happening before and now after. Spoke with family about options. (8) Debility Current Visit: No Status: Acute Plan to address problem: Multifactorial sepsis bilateral pneumonia. 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 GENERAL: The patient appears chronically ill, lethargic, Vital signs as documented. HEAD: No signs of head trauma. EYES: Pupils are equal. Extraocular motions intact. EARS: Hearing grossly intact. MOUTH: Oropharynx is normal. NECK: No adenopathy, no JVD. CHEST: Chest with diminished breath sounds bilaterally. No wheezes, rales, or rhonchi. CARDIAC: Regular rate and rhythm. S1 and S2, without murmurs, gallops, or rubs. VASCULAR: No Edema. Peripheral pulses normal and equal in all extremities. ABDOMEN: Soft, non tender and non distended. No rebound or guarding, and no masses palpated. Bowel Sounds normal. MUSCULOSKELETAL: Good range of motion of all major joints. Extremities without clubbing, cyanosis or edema. NEUROLOGIC EXAM: Alert and oriented x 1 No focal sensory or strength deficits. Not following commands PSYCHIATRIC: Mood normal. SKIN: detial exam as documented in skin assessment - Constitutional Vitals: Temp Pulse Resp BP Pulse Ox 98.6 F 87 20 145/72 95 12/25/19 04:00 12/25/19 10:46 12/25/19 06:00 12/25/19 10:46 12/25/19 06:00 Plan Activity: advance as tolerated, fall precautions Diet: low cholesterol, low salt Special Instructions: record daily weights, record daily BP diary Follow up with: PRIMARY CAREMD [Primary Care Provider] - 3-5 Days VIKAS PEREZ MD [Staff Physician] - 7 Days Prescriptions: hydrALAZINE [Apresoline TAB] 25 mg PO BID #60 tablet Aspirin [Aspirin BABY CHEW TAB] 81 mg PO QDAY #30 tab.chew Nebulizer and Compressor [Albin Choice Nebulizer] 1 each MC BID #1 each Ipratropium/Albuterol Sulfate [DUONEB *Not for PRN Use*] 1 ampul IH Q6HRT #90 ampul.neb
--- NOTE | 2019-12-25 20:35 | Progress Note ---
Assessment and Plan Assessment and plan: 79-year-old male with a past medical history of hypertension, dementia, chronic kidney disease, thrombocytopenia, dyslipidemia, CVA with aphasia s/p PEG placement, and recent admission here for bilateral pneumonia [facility] with alteration in mental status, respiratory distress, and hyp oxia. In the ER Patient was tachypneic with a saturation of 89 to 90% on nonrebreather, systolic pressure 160s. Patient also having intermittent coughing with accessory muscle use. He was intubate in the ER and place a central line for resuscitation and stabilization. He is being admitted to ICU for further evaluation and Mx. PENDING DISCHARGE, Weaned off oxygen Tori other clinical change - Patient Problems (1) Acute encephalopathy Current Visit: Yes Status: Acute Plan to address problem: Multifactorial secondary to sepsis on underlying dementia. Prognosis remains guarded. Dementia has progressed. Overall global cognition unchanged. Remains poor poor global functioning remains intubated comfortable. (2) Acute respiratory failure Current Visit: Yes Status: Acute Plan to address problem: Patient successfully extubated (3) sepsis secondary to bilateral pneumonia Current Visit: Yes Status: Acute Plan to address problem: Continue present antibiotic coverage. Follow-up culture and future culture data. No fever now off Zyvox. Cultures have remained negative (4) Dementia Current Visit: Yes Status: Acute Plan to address problem: Most likely worsening advanced dementia. Prognosis remains guarded. (5) Septic shock Current Visit: Yes Status: Acute Plan to address problem: Resolved. Patient now off any pressor. (6) JULIA (acute kidney injury) secondary to vasomotor nephropathy Current Visit: No Status: Acute Plan to address problem: Patient with acute on most likely chronic renal insufficiency secondary to prerenal azotemia. Now resolved (7) Aspiration pneumonia Current Visit: No Status: Acute Plan to address problem: Status post PEG tube placement was happening before and now after. Spoke with family about options. (8) Debility Current Visit: No Status: Acute Plan to address problem: Multifactorial sepsis bilateral pneumonia. 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 History Interval history: Patient seen and examined remains successfully extubated still on nc although takes it off and able to maintain saturation per respiratory team Hospitalist Physical - Physical exam Narrative exam: VITAL SIGNS: Reviewed. GENERAL: The patient appears chronically ill, lethargic, Vital signs as documented. HEAD: No signs of head trauma. EYES: Pupils are equal. Extraocular motions intact. EARS: Hearing grossly intact. MOUTH: Oropharynx is normal. NECK: No adenopathy, no JVD. CHEST: Chest with diminished breath sounds bilaterally. No wheezes, rales, or rhonchi. CARDIAC: Regular rate and rhythm. S1 and S2, without murmurs, gallops, or rubs. VASCULAR: No Edema. Peripheral pulses normal and equal in all extremities. ABDOMEN: Soft, non tender and non distended. No rebound or guarding, and no masses palpated. Bowel Sounds normal. MUSCULOSKELETAL: Good range of motion of all major joints. Extremities without clubbing, cyanosis or edema. NEUROLOGIC EXAM: Alert and oriented x 1 No focal sensory or strength deficits. Not following commands PSYCHIATRIC: Mood normal. SKIN: detial exam as documented in skin assessment - Constitutional Vitals: Temp Pulse Resp BP Pulse Ox 98.5 F 94 H 28 H 136/78 93 12/25/19 16:00 12/25/19 19:46 12/25/19 19:46 12/25/19 19:00 12/25/19 19:46 General appearance: Present: no acute distress, other (intubated and sedated) Results - Labs CBC & Chem 7: 12/24/19 04:59 12/24/19 04:59 Labs: Laboratory Last Values WBC 6.2 K/mm3 (4.5-11.0) 12/24/19 04:59 RBC 3.12 M/mm3 (3.65-5.03) L 12/24/19 04:59 Hgb 9.8 gm/dl (11.8-15.2) L 12/24/19 04:59 Hct 29.2 % (35.5-45.6) L 12/24/19 04:59 MCV 93 fl (84-94) 12/24/19 04:59 MCH 32 pg (28-32) 12/24/19 04:59 MCHC 34 % (32-34) 12/24/19 04:59 RDW 17.1 % (13.2-15.2) H 12/24/19 04:59 Plt Count 107 K/mm3 (140-440) L 12/24/19 04:59 Lymph % (Auto) 13.6 % (13.4-35.0) 12/18/19 04:23 [place] % (Auto) 8.4 % (0.0-7.3) H 12/18/19 04:23 Eos % (Auto) 4.8 % (0.0-4.3) H 12/18/19 04:23 Baso % (Auto) 0.2 % (0.0-1.8) 12/18/19 04:23 Lymph # 1.0 K/mm3 (1.2-5.4) L 12/18/19 04:23 [place] # 0.6 K/mm3 (0.0-0.8) 12/18/19 04:23 Eos # 0.4 K/mm3 (0.0-0.4) 12/18/19 04:23 Baso # 0.0 K/mm3 (0.0-0.1) 12/18/19 04:23 Seg Neutrophils % 73.0 % (40.0-70.0) H 12/18/19 04:23 Seg Neutrophils # 5.3 K/mm3 (1.8-7.7) 12/18/19 04:23 PT 15.1 Sec. (12.2-14.9) H 12/12/19 05:00 INR 1.17 (0.87-1.13) H 12/12/19 05:00 APTT 28.0 Sec. (24.2-36.6) 12/12/19 05:00 ABG pH 7.442 pH Units (7.350-7.450) 12/23/19 14:07 ABG pCO2 47.0 mm Hg 12/23/19 14:07 ABG pO2 78.0 mm Hg (80.0-90.0) L 12/23/19 14:07 ABG HCO3 31.3 mmol/L (20.0-26.0) H 12/23/19 14:07 ABG O2 Saturation 96.8 % (95.0-99.0) 12/23/19 14:07 ABG O2 Content 13.6 (0.0-44) 12/23/19 14:07 ABG Base Excess 6.4 mmol/L (-2.0-3.0) H 12/23/19 14:07 ABG Hemoglobin 10.2 gm/dl (14.0-18.0) L 12/23/19 14:07 ABG Carboxyhemoglobin 1.7 % (0.0-5.0) 12/23/19 14:07 ABG Methemoglobin 0.5 % (0.0-1.5) 12/23/19 14:07 VBG pH 7.320 (7.320-7.420) 12/12/19 05:00 Oxyhemoglobin 94.7 % (95.0-99.0) L 12/23/19 14:07 FiO2 25 % 12/23/19 14:07 Sodium 141 mmol/L (137-145) 12/24/19 04:59 Potassium 4.3 mmol/L (3.6-5.0) 12/24/19 04:59 Chloride 103.2 mmol/L (98-107) 12/24/19 04:59 Carbon Dioxide 26 mmol/L (22-30) 12/24/19 04:59 Anion Gap 16 mmol/L 12/24/19 04:59 BUN 33 mg/dL (9-20) H 12/24/19 04:59 Creatinine 1.0 mg/dL (0.8-1.5) 12/24/19 04:59 Estimated GFR > 60 ml/min 12/24/19 04:59 BUN/Creatinine Ratio 33 % 12/24/19 04:59 Glucose 94 mg/dL (75-100) 12/24/19 04:59 POC Glucose 90 (70-105) 12/25/19 17:22 Lactic Acid 1.60 mmol/L (0.7-2.0) 12/13/19 04:56 Calcium 11.2 mg/dL (8.4-10.2) H 12/24/19 04:59 Phosphorus 2.80 mg/dL (2.5-4.5) 12/23/19 17:00 Magnesium 1.80 mg/dL (1.7-2.3) 12/23/19 17:00 Total Bilirubin 0.30 mg/dL (0.1-1.2) 12/12/19 05:00 AST 46 units/L (5-40) H 12/12/19 05:00 ALT 72 units/L (7-56) H 12/12/19 05:00 Alkaline Phosphatase 84 units/L (35-129) 12/12/19 05:00 Troponin T 0.080 ng/mL (0.00-0.029) H 12/12/19 05:00 Total Protein 6.4 g/dL (6.3-8.2) 12/12/19 05:00 Albumin 2.2 g/dL (3.9-5) L 12/12/19 05:00 Albumin/Globulin Ratio 0.5 % 12/12/19 05:00 Triglycerides 30 mg/dL (2-149) 12/12/19 05:00 Cholesterol 82 mg/dL (50-199) 12/12/19 05:00 LDL Cholesterol Direct 38 mg/dL (50-130) L 12/12/19 05:00 HDL Cholesterol 45 mg/dL (40-59) 12/12/19 05:00 Cholesterol/HDL Ratio 1.82 % 12/12/19 05:00 Urine Color Yellow (Yellow) 12/12/19 Unknown Urine Turbidity Cloudy (Clear) 12/12/19 Unknown Urine pH 5.0 (5.0-7.0) 12/12/19 Unknown Ur Specific [place] 1.014 (1.003-1.030) 12/12/19 Unknown Urine Protein <15 mg/dl mg/dL (Negative) 12/12/19 Unknown Urine Glucose (UA) Neg mg/dL (Negative) 12/12/19 Unknown Urine Ketones Neg mg/dL (Negative) 12/12/19 Unknown Urine Blood Neg (Negative) 12/12/19 Unknown Urine Nitrite Neg (Negative) 12/12/19 Unknown Urine Bilirubin Neg (Negative) 12/12/19 Unknown Urine Urobilinogen < 2.0 mg/dL (<2.0) 12/12/19 Unknown Ur Leukocyte Esterase Neg (Negative) 12/12/19 Unknown Urine WBC (Auto) 2.0 /HPF (0.0-6.0) 12/12/19 Unknown Urine RBC (Auto) 3.0 /HPF (0.0-6.0) 12/12/19 Unknown U Epithel Cells (Auto) 1.0 /HPF (0-13.0) 12/12/19 Unknown Urine Bacteria (Auto) 1+ /HPF (Negative) 12/12/19 Unknown Hyaline Casts 1 /LPF 12/12/19 Unknown Urine Mucus Few /HPF 12/12/19 Unknown Vancomycin Trough 23.6 ug/mL (5.0-20.0) H 12/15/19 05:30 Blood Type A POSITIVE 12/12/19 05:00 Antibody Screen Negative 12/12/19 05:00 Crossmatch See Detail 12/12/19 05:00 Power/IV: Voiding Method Condom Catheter IV Catheter Type [Left Upper Mid-line arm] IV Catheter Type [Right Hand] INT / Saline Lock IV Catheter Type [Right Chest] Triple Lumen Cath IV Catheter Type [Right Peripheral IV Antecubital] Active Medications - Current Medications Current Medications: Generic Name Dose Route Start Last Admin Trade Name Freq PRN Reason Stop Dose Admin Acetaminophen 650 mg 12/14/19 14:25 Tylenol PO Q6H PRN Pain MILD(1-3)/Fever >100.5/BRUSH Albuterol/Ipratropium 1 ampul 12/12/19 08:00 12/25/19 13:23 Duoneb *Not For Prn Use* IH 1 ampul Q6HRT AYUSH Administration Allopurinol 300 mg 12/12/19 10:00 12/25/19 10:47 Zyloprim PO 300 mg QDAY AYUSH Administration Lipase/Protease/Amylase 1 each 12/12/19 12:[address] 10,500 Unit FEEDTUBE PRN PRN For Clogged Feeding Tube Aspirin 81 mg 12/13/19 10:00 12/25/19 10:47 Baby Aspirin PO 81 mg QDAY AYUSH Administration Atorvastatin Calcium 40 mg 12/12/19 22:00 12/24/19 22:03 Lipitor PO 40 mg QHS AYUSH Administration Carvedilol 6.25 mg 12/19/19 22:00 12/25/19 10:46 Coreg PO 6.25 mg BID AYUSH Administration Cyanocobalamin 1,000 mcg 12/12/19 10:00 12/12/19 10:00 Vitamin B-12 IM 1,000 mcg QMONTH AYUSH Administration Folic Acid 1 mg 12/12/19 10:00 12/25/19 10:47 Folvite PO 1 mg DAILY AYUSH Administration Heparin Sodium (Porcine) 5,000 unit 12/12/19 14:00 12/25/19 14:40 Heparin SUB-Q 5,000 unit Q8HR AYUSH Administration Hydralazine HCl 5 mg 12/17/19 17:06 12/23/19 18:07 Apresoline IV 5 mg Q30MIN PRN Administration Hypertension Hydralazine HCl 25 mg 12/22/19 14:00 12/25/19 10:46 Apresoline PO 25 mg BID AYUSH Administration Hydrophilic Ointment 1 applic 12/12/19 05:18 Vaseline Lip Therapy TP Q2HR PRN Dry Lips Lansoprazole 30 mg 12/14/19 15:00 12/25/19 10:47 Prevacid Solutab FEEDTUBE 30 mg QDAY AYUSH Administration Multi-Ingred Cream/Lotion/Oil/Oint 1 applic 12/12/19 05:18 Artificial Tears Ophth Oint OU Q4HR PRN Dry Eye(s) Multivitamins 5 ml 12/15/19 10:00 12/25/19 10:46 Centrum Liq PO 5 ml QDAY AYUSH Administration Ondansetron HCl 4 mg 12/12/19 07:52 Zofran IV Q8H PRN Nausea And Vomiting Oxycodone/Acetaminophen 1 tab 12/19/19 13:45 12/23/19 02:32 Percocet 5/325 PO 1 tab Q4H PRN Administration Pain, Moderate (4-6) Senna 8.8 mg 12/15/19 22:00 12/25/19 10:49 Senokot FEEDTUBE Not Given BID AYUSH Simple Syrup 15 ml 12/12/19 12:32 12/20/19 18:36 Simple Syrup FEEDTUBE 15 ml PRN PRN Administration Hypoglycemia Simple Syrup 30 ml 12/12/19 12:32 12/23/19 18:07 Simple Syrup FEEDTUBE 30 ml PRN PRN Administration Hypoglycemia Sodium Bicarbonate 325 mg 12/12/19 12:32 Sodium Bicarbonate FEEDTUBE PRN PRN For Clogged Feeding Tube Sodium Chloride 10 ml 12/12/19 10:00 12/25/19 10:47 Sodium Chloride Flush Syringe 10 Ml IV 10 ml BID AYUSH Administration Sodium Chloride 10 ml 12/12/19 07:52 12/12/19 21:38 Sodium Chloride Flush Syringe 10 Ml IV 10 ml PRN PRN Administration LINE FLUSH Nutrition/Malnutrition Assess - Dietary Evaluation Nutrition/Malnutrition Findings: Nutrition Notes Start: 12/12/19 12:10 Freq: Status: Active Protocol: Document 12/23/19 11:35 LM (Rec: 12/23/19 11:40 LM [email or web address]) Nutrition Notes Initial or Follow up Reassessment Current Diagnosis Acute Kidney Injury,CKD(stage I-IV),Sepsis,Hypertension, Respiratory Failure Other Pertinent Diagnosis hx CVA with dysphasia, PEG, dementia Labs/Tests Na 142 K 4.0 Pertinent Medications Reviewed Height 5 ft 8 in Weight 76.204 kg [place] Body Weight (kg) 70.00 BMI 25.5 Subjective/Other Information Osmolite running at 50 ml/hr. Pt tolerating TF. Labs improved. Percent of energy/protein needs met: 100%/100% Burn Absent Trauma Absent GI Symptoms None Current % PO Negligible Minimum of two criteria No Muscle Mass Mild Depletion (non-severe) #1 Nutrition Diagnosis Inadequate oral intake Diagnosis Progress(for reassessment Continues documentation) Is patient on ventilator? Yes Is Patient Ambulatory and/or Out of Bed No REE-([place]-St. Jeor-confined to bed) [phone] Calculation [facility]ations [facility] Additional Notes Protein:61-152g (0.8-2g/kg) CKD, JULIA, and vent needs Fluid: 1 ml/kcal or per MD Nutrition Intervention Change Diet Order: TF Nutrition Support: Osmolite 1.5 at 50ml/hr Flush 250 ml q4h for hypernatremia Flush 170 ml q4h once hypernatremia resolves Kcal 1,800 Protein (gm) 75 Fluid (mL) 914 Goal #1 TF tolerance Goal #2 Meet at least 75% of energy and protein needs via TF Anticipated Discharge Needs: TF Follow-Up By: 12/30/19 Additional Comments F/U for TF tolerance
[2019-12-26] MEDS: IPRATROPIUM/ALBUTEROL SULFATE 3 ML AMPUL.NEB IH SCH ×3 (02:52→14:32)
[2019-12-26] MEDS: HEPARIN 5,000 UNIT/1 ML VIAL SUB-Q SCH ×2 (06:29→11:00)
[2019-12-26] MEDS: ASPIRIN 81 MG TAB CHEW PO SCH (11:00)
[2019-12-26] MEDS: SENNOSIDES ORAL LIQD 8.8 MG/5 ML ORAL LIQD FEEDTUBE SCH (11:00)
[2019-12-26] MEDS: allopurinoL 300 MG TAB PO SCH (11:00)
[2019-12-26] MEDS: LANSOPRAZOLE 30 MG SOLUTAB FEEDTUBE SCH (11:00)
[2019-12-26] MEDS: MULTIVITAMINS 5 ML ORAL LIQUID PO SCH (11:00)
[2019-12-26] MEDS: carvediloL 6.25 MG TAB PO SCH (11:00)
[2019-12-26] MEDS: FOLIC ACID 1 MG TAB PO SCH (11:00)
[2019-12-26] MEDS: hydrALAZINE 25 MG TAB PO SCH (11:00)
--- NOTE | 2019-12-26 11:17 | Progress Note ---
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 Avoid hypoglycemia - Wean supplemental oxygen for target O2 sat's > 90% -ABG and CXR in am -Avoid nephrotoxins, adjust all medications for GFR and CrCL - continue bronchodilators with pulmonary hygiene per RT - continue to avoid benzodiazepines to reduce the possibility of delirium - prn analgesia per CPOT score - Maintenance of sleep-wake cycle, avoid delirium - PT/OT/ROM exercises - continue mobility protocol and skin assessment per protocol for pressure ulcer prevention - Monitor hemodynamics closely - continue other care per attending / other consultants CONDITION: FAIR PROGNOSIS: GUARDED CODE STATUS: FULL CODE Subjective Date of service: 12/26/19 Principal diagnosis: Severe Sepsis with Shock; Pneumonia; Ac hypoxemic respfail ure; CKD Objective Vital Signs - 12hr 12/26/19 12/26/19 12/26/19 00:00 00:01 00:54 Temperature 97.6 F Pulse Rate 87 84 Pulse Rate [ Anterior Bilateral Throughout] Pulse Rate [ 83 From Monitor] Respiratory 25 H 32 H Rate Respiratory Rate [Anterior Bilateral Throughout] Blood Pressure 101/45 O2 Sat by Pulse 94 92 Oximetry 12/26/19 12/26/19 12/26/19 01:00 02:00 02:01 Temperature Pulse Rate 82 77 Pulse Rate [ 77 Anterior Bilateral Throughout] Pulse Rate [ From Monitor] Respiratory 34 H 33 H Rate Respiratory 20 Rate [Anterior Bilateral Throughout] Blood Pressure 101/45 101/45 O2 Sat by Pulse 94 95 Oximetry 12/26/19 12/26/19 12/26/19 02:56 03:01 04:00 Temperature Pulse Rate 76 75 74 Pulse Rate [ Anterior Bilateral Throughout] Pulse Rate [ 73 From Monitor] Respiratory 26 H 28 H 30 H Rate Respiratory Rate [Anterior Bilateral Throughout] Blood Pressure 101/45 101/45 108/54 O2 Sat by Pulse 100 100 100 Oximetry 12/26/19 12/26/19 05:01 05:18 Temperature 97.5 F L Pulse Rate 71 Pulse Rate [ Anterior Bilateral Throughout] Pulse Rate [ From Monitor] Respiratory 26 H Rate Respiratory Rate [Anterior Bilateral Throughout] Blood Pressure 101/45 O2 Sat by Pulse 100 Oximetry Constitutional: no acute distress, other (elderly and chronically ill looking, atraumatic, normocephalic) Eyes: non-icteric, other (orally intubated ETT at 23cm, no patient-ventilator dys-synchrony) ENT: oropharynx moist, other (ETT 23 cm ELISEO) Neck: supple, no JVD Effort: mildly labored Ascultation: Bilateral: diminished breath sounds, rhonchi Percussion: Bilateral: not dull Cardiovascular: regular rate and rhythm, other (S1,S2, no murmurs) Gastrointestinal: normoactive bowel sounds, soft, non-tender, non-distended, other (PEG in place) Integumentary: normal Extremities: no cyanosis, no edema, pulses normal, no ischemia or petechiae Neurologic: non-focal exam (grossly), pupils equal and round, other (somnolent; weak) Psychiatric: mood appropriate, affect normal CBC and BMP: 12/24/19 04:59 12/24/19 04:59 ABG, PT/INR, D-dimer: ABG ABG pH 7.442 pH Units (7.350-7.450) 12/23/19 14:07 ABG pCO2 47.0 mm Hg 12/23/19 14:07 ABG pO2 78.0 mm Hg (80.0-90.0) L 12/23/19 14:07 ABG O2 Saturation 96.8 % (95.0-99.0) 12/23/19 14:07 PT/INR, D-dimer PT 15.1 Sec. (12.2-14.9) H 12/12/19 05:00 INR 1.17 (0.87-1.13) H 12/12/19 05:00 Abnormal lab findings: Abnormal Labs 12/12/19 12/12/19 12/12/19 04:35 05:00 05:00 RBC 2.39 L Hgb 7.7 L Hct 23.1 L MCV 97 H RDW 18.8 H Plt Count Lymph % (Auto) 9.9 L [place] % (Auto) Eos % (Auto) Lymph # 0.5 L Seg Neutrophils % 86.5 H Seg Neutrophils # PT INR ABG pH ABG pO2 ABG HCO3 ABG O2 Saturation ABG Base Excess ABG Hemoglobin Oxyhemoglobin Sodium Potassium Chloride Carbon Dioxide 19 L BUN 51 H Creatinine 1.9 H Glucose 117 H POC Glucose 129 H Lactic Acid Calcium AST 46 H ALT 72 H Troponin T 0.080 H Albumin 2.2 L LDL Cholesterol Direct 38 L Vancomycin Trough Crossmatch 12/12/19 12/12/19 12/12/19 05:00 05:00 05:00 RBC Hgb Hct MCV RDW Plt Count Lymph % (Auto) [place] % (Auto) Eos % (Auto) Lymph # Seg Neutrophils % Seg Neutrophils # PT 15.1 H INR 1.17 H ABG pH 7.320 L ABG pO2 95.6 H ABG HCO3 18.2 L ABG O2 Saturation 99.5 H ABG Base Excess -7.2 L ABG Hemoglobin 7.3 L Oxyhemoglobin 94.9 L Sodium Potassium Chloride Carbon Dioxide BUN Creatinine Glucose POC Glucose Lactic Acid 7.90 H* Calcium AST ALT Troponin T Albumin LDL Cholesterol Direct Vancomycin Trough Crossmatch 12/12/19 12/12/19 12/12/19 05:00 07:04 08:10 RBC Hgb Hct MCV RDW Plt Count Lymph % (Auto) [place] % (Auto) Eos % (Auto) Lymph # Seg Neutrophils % Seg Neutrophils # PT INR ABG pH ABG pO2 ABG HCO3 ABG O2 Saturation ABG Base Excess ABG Hemoglobin Oxyhemoglobin Sodium Potassium Chloride Carbon Dioxide BUN Creatinine Glucose POC Glucose Lactic Acid 7.30 H* 6.40 H* Calcium AST ALT Troponin T Albumin LDL Cholesterol Direct Vancomycin Trough Crossmatch See Detail 12/12/19 12/12/19 12/12/19 15:01 18:48 Unknown RBC Hgb Hct MCV RDW Plt Count Lymph % (Auto) [place] % (Auto) Eos % (Auto) Lymph # Seg Neutrophils % Seg Neutrophils # PT INR ABG pH ABG pO2 ABG HCO3 ABG O2 Saturation ABG Base Excess ABG Hemoglobin Oxyhemoglobin Sodium Potassium Chloride Carbon Dioxide BUN Creatinine Glucose POC Glucose 62 L Lactic Acid 2.90 H* 4.30 H* Calcium AST ALT Troponin T Albumin LDL Cholesterol Direct Vancomycin Trough Crossmatch 12/13/19 12/13/19 12/13/19 04:56 04:56 05:40 RBC 2.24 L Hgb 7.1 L Hct 21.6 L MCV 96 H RDW 19.9 H Plt Count 135 L Lymph % (Auto) 11.6 L [place] % (Auto) Eos % (Auto) Lymph # 1.1 L Seg Neutrophils % 79.2 H Seg Neutrophils # 7.8 H PT INR ABG pH ABG pO2 ABG HCO3 17.3 L ABG O2 Saturation ABG Base Excess -7.2 L ABG Hemoglobin 7.8 L Oxyhemoglobin Sodium Potassium Chloride 111.8 H Carbon Dioxide 16 L BUN 39 H Creatinine 1.6 H Glucose 101 H POC Glucose Lactic Acid Calcium AST ALT Troponin T Albumin LDL Cholesterol Direct Vancomycin Trough Crossmatch 12/13/19 12/13/19 12/14/19 18:05 23:24 04:22 RBC Hgb Hct MCV RDW Plt Count Lymph % (Auto) [place] % (Auto) Eos % (Auto) Lymph # Seg Neutrophils % Seg Neutrophils # PT INR ABG pH ABG pO2 156.5 H ABG HCO3 17.3 L ABG O2 Saturation ABG Base Excess -7.6 L ABG Hemoglobin 5.5 L Oxyhemoglobin Sodium Potassium Chloride Carbon Dioxide BUN Creatinine Glucose POC Glucose 165 H 110 H Lactic Acid Calcium AST ALT Troponin T Albumin LDL Cholesterol Direct Vancomycin Trough Crossmatch 12/14/19 12/14/19 12/14/19 06:18 06:45 06:45 RBC 1.98 L Hgb 6.3 L Hct 19.4 L* MCV 98 H RDW 20.3 H Plt Count 103 L Lymph % (Auto) 9.7 L [place] % (Auto) Eos % (Auto) Lymph # 0.9 L Seg Neutrophils % 81.4 H Seg Neutrophils # 7.8 H PT INR ABG pH ABG pO2 ABG HCO3 ABG O2 Saturation ABG Base Excess ABG Hemoglobin Oxyhemoglobin Sodium Potassium Chloride 115.3 H Carbon Dioxide 17 L BUN 38 H Creatinine 1.7 H Glucose 117 H POC Glucose 138 H Lactic Acid Calcium AST ALT Troponin T Albumin LDL Cholesterol Direct Vancomycin Trough Crossmatch 12/14/19 12/14/19 12/14/19 12:54 17:35 23:35 RBC Hgb Hct MCV RDW Plt Count Lymph % (Auto) [place] % (Auto) Eos % (Auto) Lymph # Seg Neutrophils % Seg Neutrophils # PT INR ABG pH ABG pO2 ABG HCO3 ABG O2 Saturation ABG Base Excess ABG Hemoglobin Oxyhemoglobin Sodium Potassium Chloride Carbon Dioxide BUN Creatinine Glucose POC Glucose 127 H 163 H 116 H Lactic Acid Calcium AST ALT Troponin T Albumin LDL Cholesterol Direct Vancomycin Trough Crossmatch 12/15/19 12/15/19 12/15/19 04:10 05:30 05:30 RBC 2.97 L Hgb 9.4 L D Hct 28.3 L D MCV 95 H RDW 17.8 H Plt Count 101 L Lymph % (Auto) 5.2 L [place] % (Auto) Eos % (Auto) Lymph # 0.5 L Seg Neutrophils % 87.5 H Seg Neutrophils # 8.2 H PT INR ABG pH ABG pO2 71.3 L ABG HCO3 16.5 L ABG O2 Saturation ABG Base Excess -7.9 L ABG Hemoglobin 10.9 L Oxyhemoglobin 93.4 L Sodium Potassium Chloride Carbon Dioxide BUN Creatinine Glucose POC Glucose Lactic Acid Calcium AST ALT Troponin T Albumin LDL Cholesterol Direct Vancomycin Trough 23.6 H Crossmatch 12/15/19 12/15/19 12/15/19 05:30 12:35 17:24 RBC Hgb Hct MCV RDW Plt Count Lymph % (Auto) [place] % (Auto) Eos % (Auto) Lymph # Seg Neutrophils % Seg Neutrophils # PT INR ABG pH ABG pO2 ABG HCO3 ABG O2 Saturation ABG Base Excess ABG Hemoglobin Oxyhemoglobin Sodium Potassium Chloride 117.0 H Carbon Dioxide 14 L BUN 35 H Creatinine Glucose POC Glucose 120 H 155 H Lactic Acid Calcium 10.3 H AST ALT Troponin T Albumin LDL Cholesterol Direct Vancomycin Trough Crossmatch 12/16/19 12/16/19 12/16/19 04:30 05:38 06:30 RBC 3.04 L Hgb 9.6 L Hct 29.1 L MCV 96 H RDW 17.5 H Plt Count 105 L Lymph % (Auto) [place] % (Auto) Eos % (Auto) Lymph # Seg Neutrophils % Seg Neutrophils # PT INR ABG pH ABG pO2 146.9 H ABG HCO3 18.0 L ABG O2 Saturation ABG Base Excess -6.5 L ABG Hemoglobin 8.9 L Oxyhemoglobin Sodium Potassium Chloride Carbon Dioxide BUN Creatinine Glucose POC Glucose 128 H Lactic Acid Calcium AST ALT Troponin T Albumin LDL Cholesterol Direct Vancomycin Trough Crossmatch 12/16/19 12/16/19 12/17/19 12:10 17:52 04:40 RBC Hgb Hct MCV RDW Plt Count Lymph % (Auto) [place] % (Auto) Eos % (Auto) Lymph # Seg Neutrophils % Seg Neutrophils # PT INR ABG pH ABG pO2 109.1 H ABG HCO3 ABG O2 Saturation ABG Base Excess -4.6 L ABG Hemoglobin 10.9 L Oxyhemoglobin Sodium Potassium Chloride Carbon Dioxide BUN Creatinine Glucose POC Glucose 124 H 136 H Lactic Acid Calcium AST ALT Troponin T Albumin LDL Cholesterol Direct Vancomycin Trough Crossmatch 12/17/19 12/17/19 12/17/19 05:18 11:45 17:27 RBC Hgb Hct MCV RDW Plt Count Lymph % (Auto) [place] % (Auto) Eos % (Auto) Lymph # Seg Neutrophils % Seg Neutrophils # PT INR ABG pH ABG pO2 ABG HCO3 ABG O2 Saturation ABG Base Excess ABG Hemoglobin Oxyhemoglobin Sodium Potassium Chloride Carbon Dioxide BUN Creatinine Glucose POC Glucose 140 H 116 H 110 H Lactic Acid Calcium AST ALT Troponin T Albumin LDL Cholesterol Direct Vancomycin Trough Crossmatch 12/18/19 12/18/19 12/18/19 00:48 04:23 04:30 RBC 3.49 L Hgb 10.8 L Hct 32.8 L MCV RDW 17.9 H Plt Count 103 L Lymph % (Auto) [place] % (Auto) 8.4 H Eos % (Auto) 4.8 H Lymph # 1.0 L Seg Neutrophils % 73.0 H Seg Neutrophils # PT INR ABG pH ABG pO2 ABG HCO3 ABG O2 Saturation ABG Base Excess ABG Hemoglobin 10.0 L Oxyhemoglobin Sodium Potassium Chloride Carbon Dioxide BUN Creatinine Glucose POC Glucose 128 H Lactic Acid Calcium AST ALT Troponin T Albumin LDL Cholesterol Direct Vancomycin Trough Crossmatch 12/18/19 12/18/19 12/18/19 06:37 12:30 19:00 RBC Hgb Hct MCV RDW Plt Count Lymph % (Auto) [place] % (Auto) Eos % (Auto) Lymph # Seg Neutrophils % Seg Neutrophils # PT INR ABG pH ABG pO2 ABG HCO3 ABG O2 Saturation ABG Base Excess ABG Hemoglobin Oxyhemoglobin Sodium Potassium Chloride Carbon Dioxide BUN Creatinine Glucose POC Glucose 132 H 127 H 130 H Lactic Acid Calcium AST ALT Troponin T Albumin LDL Cholesterol Direct Vancomycin Trough Crossmatch 12/19/19 12/19/19 12/19/19 05:51 12:41 14:43 RBC Hgb Hct MCV RDW Plt Count Lymph % (Auto) [place] % (Auto) Eos % (Auto) Lymph # Seg Neutrophils % Seg Neutrophils # PT INR ABG pH ABG pO2 93.5 H ABG HCO3 26.1 H ABG O2 Saturation ABG Base Excess ABG Hemoglobin 9.9 L Oxyhemoglobin Sodium 147 H Potassium 3.5 L Chloride 114.3 H Carbon Dioxide 21 L D BUN 37 H Creatinine Glucose 119 H POC Glucose 123 H Lactic Acid Calcium 11.8 H AST ALT Troponin T Albumin LDL Cholesterol Direct Vancomycin Trough Crossmatch 12/20/19 12/20/19 12/20/19 04:19 12:58 23:56 RBC Hgb Hct MCV RDW Plt Count Lymph % (Auto) [place] % (Auto) Eos % (Auto) Lymph # Seg Neutrophils % Seg Neutrophils # PT INR ABG pH ABG pO2 ABG HCO3 27.0 H ABG O2 Saturation ABG Base Excess ABG Hemoglobin Oxyhemoglobin 94.2 L Sodium Potassium Chloride Carbon Dioxide BUN Creatinine Glucose POC Glucose 118 H 67 L Lactic Acid Calcium AST ALT Troponin T Albumin LDL Cholesterol Direct Vancomycin Trough Crossmatch 12/21/19 12/21/19 12/21/19 05:22 12:51 18:08 RBC Hgb Hct MCV RDW Plt Count Lymph % (Auto) [place] % (Auto) Eos % (Auto) Lymph # Seg Neutrophils % Seg Neutrophils # PT INR ABG pH ABG pO2 ABG HCO3 ABG O2 Saturation ABG Base Excess ABG Hemoglobin Oxyhemoglobin Sodium Potassium Chloride Carbon Dioxide BUN Creatinine Glucose POC Glucose 120 H 115 H 118 H Lactic Acid Calcium AST ALT Troponin T Albumin LDL Cholesterol Direct Vancomycin Trough Crossmatch 12/21/19 12/22/19 12/22/19 23:42 05:53 12:40 RBC Hgb Hct MCV RDW Plt Count Lymph % (Auto) [place] % (Auto) Eos % (Auto) Lymph # Seg Neutrophils % Seg Neutrophils # PT INR ABG pH ABG pO2 ABG HCO3 ABG O2 Saturation ABG Base Excess ABG Hemoglobin Oxyhemoglobin Sodium Potassium Chloride Carbon Dioxide BUN Creatinine Glucose POC Glucose 109 H 111 H 109 H Lactic Acid Calcium AST ALT Troponin T Albumin LDL Cholesterol Direct Vancomycin Trough Crossmatch 12/22/19 12/22/19 12/23/19 17:59 20:20 04:04 RBC 3.30 L Hgb 10.3 L Hct 31.0 L MCV RDW 16.7 H Plt Count 102 L Lymph % (Auto) [place] % (Auto) Eos % (Auto) Lymph # Seg Neutrophils % Seg Neutrophils # PT INR ABG pH 7.452 H ABG pO2 ABG HCO3 29.9 H ABG O2 Saturation ABG Base Excess 5.4 H ABG Hemoglobin 10.2 L Oxyhemoglobin Sodium Potassium Chloride Carbon Dioxide BUN Creatinine Glucose POC Glucose 109 H Lactic Acid Calcium AST ALT Troponin T Albumin LDL Cholesterol Direct Vancomycin Trough Crossmatch 12/23/19 12/23/19 12/23/19 04:04 14:07 18:05 RBC Hgb Hct MCV RDW Plt Count Lymph % (Auto) [place] % (Auto) Eos % (Auto) Lymph # Seg Neutrophils % Seg Neutrophils # PT INR ABG pH ABG pO2 78.0 L ABG HCO3 31.3 H ABG O2 Saturation ABG Base Excess 6.4 H ABG Hemoglobin 10.2 L Oxyhemoglobin 94.7 L Sodium Potassium Chloride Carbon Dioxide BUN 35 H Creatinine Glucose POC Glucose 58 L Lactic Acid Calcium 11.2 H AST ALT Troponin T Albumin LDL Cholesterol Direct Vancomycin Trough Crossmatch 12/24/19 12/24/19 12/26/19 04:59 04:59 00:49 RBC 3.12 L Hgb 9.8 L Hct 29.2 L MCV RDW 17.1 H Plt Count 107 L Lymph % (Auto) [place] % (Auto) Eos % (Auto) Lymph # Seg Neutrophils % Seg Neutrophils # PT INR ABG pH ABG pO2 ABG HCO3 ABG O2 Saturation ABG Base Excess ABG Hemoglobin Oxyhemoglobin Sodium Potassium Chloride Carbon Dioxide BUN 33 H Creatinine Glucose POC Glucose 111 H Lactic Acid Calcium 11.2 H AST ALT Troponin T Albumin LDL Cholesterol Direct Vancomycin Trough Crossmatch Allied health notes reviewed: nursing
[2019-12-26 18:24] VITALS: BP 155/85
--- NOTE | 2019-12-26 19:10 | Progress Note ---
Hospitalist Physical - Constitutional Vitals: Temp Pulse Resp BP Pulse Ox 97.5 F L 119 H 8 L 155/85 92 12/26/19 12:00 12/26/19 17:01 12/26/19 17:01 12/26/19 17:01 12/26/19 16:00 General appearance: Present: no acute distress, other (intubated and sedated) Results - Labs CBC & Chem 7: 12/24/19 04:59 12/24/19 04:59 Labs: Laboratory Last Values WBC 6.2 K/mm3 (4.5-11.0) 12/24/19 04:59 RBC 3.12 M/mm3 (3.65-5.03) L 12/24/19 04:59 Hgb 9.8 gm/dl (11.8-15.2) L 12/24/19 04:59 Hct 29.2 % (35.5-45.6) L 12/24/19 04:59 MCV 93 fl (84-94) 12/24/19 04:59 MCH 32 pg (28-32) 12/24/19 04:59 MCHC 34 % (32-34) 12/24/19 04:59 RDW 17.1 % (13.2-15.2) H 12/24/19 04:59 Plt Count 107 K/mm3 (140-440) L 12/24/19 04:59 Lymph % (Auto) 13.6 % (13.4-35.0) 12/18/19 04:23 [place] % (Auto) 8.4 % (0.0-7.3) H 12/18/19 04:23 Eos % (Auto) 4.8 % (0.0-4.3) H 12/18/19 04:23 Baso % (Auto) 0.2 % (0.0-1.8) 12/18/19 04:23 Lymph # 1.0 K/mm3 (1.2-5.4) L 12/18/19 04:23 [place] # 0.6 K/mm3 (0.0-0.8) 12/18/19 04:23 Eos # 0.4 K/mm3 (0.0-0.4) 12/18/19 04:23 Baso # 0.0 K/mm3 (0.0-0.1) 12/18/19 04:23 Seg Neutrophils % 73.0 % (40.0-70.0) H 12/18/19 04:23 Seg Neutrophils # 5.3 K/mm3 (1.8-7.7) 12/18/19 04:23 PT 15.1 Sec. (12.2-14.9) H 12/12/19 05:00 INR 1.17 (0.87-1.13) H 12/12/19 05:00 APTT 28.0 Sec. (24.2-36.6) 12/12/19 05:00 ABG pH 7.442 pH Units (7.350-7.450) 12/23/19 14:07 ABG pCO2 47.0 mm Hg 12/23/19 14:07 ABG pO2 78.0 mm Hg (80.0-90.0) L 12/23/19 14:07 ABG HCO3 31.3 mmol/L (20.0-26.0) H 12/23/19 14:07 ABG O2 Saturation 96.8 % (95.0-99.0) 12/23/19 14:07 ABG O2 Content 13.6 (0.0-44) 12/23/19 14:07 ABG Base Excess 6.4 mmol/L (-2.0-3.0) H 12/23/19 14:07 ABG Hemoglobin 10.2 gm/dl (14.0-18.0) L 12/23/19 14:07 ABG Carboxyhemoglobin 1.7 % (0.0-5.0) 12/23/19 14:07 ABG Methemoglobin 0.5 % (0.0-1.5) 12/23/19 14:07 VBG pH 7.320 (7.320-7.420) 12/12/19 05:00 Oxyhemoglobin 94.7 % (95.0-99.0) L 12/23/19 14:07 FiO2 25 % 12/23/19 14:07 Sodium 141 mmol/L (137-145) 12/24/19 04:59 Potassium 4.3 mmol/L (3.6-5.0) 12/24/19 04:59 Chloride 103.2 mmol/L (98-107) 12/24/19 04:59 Carbon Dioxide 26 mmol/L (22-30) 12/24/19 04:59 Anion Gap 16 mmol/L 12/24/19 04:59 BUN 33 mg/dL (9-20) H 12/24/19 04:59 Creatinine 1.0 mg/dL (0.8-1.5) 12/24/19 04:59 Estimated GFR > 60 ml/min 12/24/19 04:59 BUN/Creatinine Ratio 33 % 12/24/19 04:59 Glucose 94 mg/dL (75-100) 12/24/19 04:59 POC Glucose 121 (70-105) H 12/26/19 12:27 Lactic Acid 1.60 mmol/L (0.7-2.0) 12/13/19 04:56 Calcium 11.2 mg/dL (8.4-10.2) H 12/24/19 04:59 Phosphorus 2.80 mg/dL (2.5-4.5) 12/23/19 17:00 Magnesium 1.80 mg/dL (1.7-2.3) 12/23/19 17:00 Total Bilirubin 0.30 mg/dL (0.1-1.2) 12/12/19 05:00 AST 46 units/L (5-40) H 12/12/19 05:00 ALT 72 units/L (7-56) H 12/12/19 05:00 Alkaline Phosphatase 84 units/L (35-129) 12/12/19 05:00 Troponin T 0.080 ng/mL (0.00-0.029) H 12/12/19 05:00 Total Protein 6.4 g/dL (6.3-8.2) 12/12/19 05:00 Albumin 2.2 g/dL (3.9-5) L 12/12/19 05:00 Albumin/Globulin Ratio 0.5 % 12/12/19 05:00 Triglycerides 30 mg/dL (2-149) 12/12/19 05:00 Cholesterol 82 mg/dL (50-199) 12/12/19 05:00 LDL Cholesterol Direct 38 mg/dL (50-130) L 12/12/19 05:00 HDL Cholesterol 45 mg/dL (40-59) 12/12/19 05:00 Cholesterol/HDL Ratio 1.82 % 12/12/19 05:00 Urine Color Yellow (Yellow) 12/12/19 Unknown Urine Turbidity Cloudy (Clear) 12/12/19 Unknown Urine pH 5.0 (5.0-7.0) 12/12/19 Unknown Ur Specific [place] 1.014 (1.003-1.030) 12/12/19 Unknown Urine Protein <15 mg/dl mg/dL (Negative) 12/12/19 Unknown Urine Glucose (UA) Neg mg/dL (Negative) 12/12/19 Unknown Urine Ketones Neg mg/dL (Negative) 12/12/19 Unknown Urine Blood Neg (Negative) 12/12/19 Unknown Urine Nitrite Neg (Negative) 12/12/19 Unknown Urine Bilirubin Neg (Negative) 12/12/19 Unknown Urine Urobilinogen < 2.0 mg/dL (<2.0) 12/12/19 Unknown Ur Leukocyte Esterase Neg (Negative) 12/12/19 Unknown Urine WBC (Auto) 2.0 /HPF (0.0-6.0) 12/12/19 Unknown Urine RBC (Auto) 3.0 /HPF (0.0-6.0) 12/12/19 Unknown U Epithel Cells (Auto) 1.0 /HPF (0-13.0) 12/12/19 Unknown Urine Bacteria (Auto) 1+ /HPF (Negative) 12/12/19 Unknown Hyaline Casts 1 /LPF 12/12/19 Unknown Urine Mucus Few /HPF 12/12/19 Unknown Vancomycin Trough 23.6 ug/mL (5.0-20.0) H 12/15/19 05:30 Blood Type A POSITIVE 12/12/19 05:00 Antibody Screen Negative 12/12/19 05:00 Crossmatch See Detail 12/12/19 05:00 Power/IV: Voiding Method Condom Catheter IV Catheter Type [Left Upper Mid-line arm] IV Catheter Type [Right Hand] INT / Saline Lock IV Catheter Type [Right Chest] Triple Lumen Cath IV Catheter Type [Right Peripheral IV Antecubital] Active Medications - Current Medications Current Medications: Generic Name Dose Route Start Last Admin Trade Name Freq PRN Reason Stop Dose Admin Acetaminophen 650 mg 12/14/19 14:25 Tylenol PO Q6H PRN Pain MILD(1-3)/Fever >100.5/BRUSH Albuterol/Ipratropium 1 ampul 12/12/19 08:00 12/26/19 14:32 Duoneb *Not For Prn Use* IH 1 ampul Q6HRT AYUSH Administration Allopurinol 300 mg 12/12/19 10:00 12/26/19 11:00 Zyloprim PO 300 mg QDAY AYUSH Administration Lipase/Protease/Amylase 1 each 12/12/19 12:32 12/26/19 11:00 Pancrejenn Stacy 10,500 Unit FEEDTUBE 1 each PRN PRN Administration For Clogged Feeding Tube Aspirin 81 mg 12/13/19 10:00 12/26/19 11:00 Baby Aspirin PO 81 mg QDAY AYUSH Administration Atorvastatin Calcium 40 mg 12/12/19 22:00 12/25/19 21:40 Lipitor PO 40 mg QHS AYUSH Administration Carvedilol 6.25 mg 12/19/19 22:00 12/26/19 11:00 Coreg PO 6.25 mg BID AYUSH Administration Cyanocobalamin 1,000 mcg 12/12/19 10:00 12/12/19 10:00 Vitamin B-12 IM 1,000 mcg QMONTH AYUSH Administration Folic Acid 1 mg 12/12/19 10:00 12/26/19 11:00 Folvite PO 1 mg DAILY AYUSH Administration Heparin Sodium (Porcine) 5,000 unit 12/12/19 14:00 12/26/19 11:00 Heparin SUB-Q 5,000 unit Q8HR AYUSH Administration Hydralazine HCl 5 mg 12/17/19 17:06 12/23/19 18:07 Apresoline IV 5 mg Q30MIN PRN Administration Hypertension Hydralazine HCl 25 mg 12/22/19 14:00 12/26/19 11:00 Apresoline PO 25 mg BID AYUSH Administration Hydrophilic Ointment 1 applic 12/12/19 05:18 Vaseline Lip Therapy TP Q2HR PRN Dry Lips Lansoprazole 30 mg 12/14/19 15:00 12/26/19 11:00 Prevacid Solutab FEEDTUBE 30 mg QDAY AYUSH Administration Multi-Ingred Cream/Lotion/Oil/Oint 1 applic 12/12/19 05:18 Artificial Tears Ophth Oint OU Q4HR PRN Dry Eye(s) Multivitamins 5 ml 12/15/19 10:00 12/26/19 11:00 Centrum Liq PO 5 ml QDAY AYUSH Administration Ondansetron HCl 4 mg 12/12/19 07:52 Zofran IV Q8H PRN Nausea And Vomiting Oxycodone/Acetaminophen 1 tab 12/19/19 13:45 12/23/19 02:32 Percocet 5/325 PO 1 tab Q4H PRN Administration Pain, Moderate (4-6) Senna 8.8 mg 12/15/19 22:00 12/26/19 11:00 Senokot FEEDTUBE Not Given BID AYUSH Simple Syrup 15 ml 12/12/19 12:32 12/20/19 18:36 Simple Syrup FEEDTUBE 15 ml PRN PRN Administration Hypoglycemia Simple Syrup 30 ml 12/12/19 12:32 12/23/19 18:07 Simple Syrup FEEDTUBE 30 ml PRN PRN Administration Hypoglycemia Sodium Bicarbonate 325 mg 12/12/19 12:32 Sodium Bicarbonate FEEDTUBE PRN PRN For Clogged Feeding Tube Sodium Chloride 10 ml 12/12/19 10:00 12/26/19 11:00 Sodium Chloride Flush Syringe 10 Ml IV 10 ml BID AYUSH Administration Sodium Chloride 10 ml 12/12/19 07:52 12/12/19 21:38 Sodium Chloride Flush Syringe 10 Ml IV 10 ml PRN PRN Administration LINE FLUSH Nutrition/Malnutrition Assess - Dietary Evaluation Nutrition/Malnutrition Findings: Nutrition Notes Start: 12/12/19 12:10 Freq: Status: Active Protocol: Document 12/23/19 11:35 LM (Rec: 12/23/19 11:40 LM [email or web address]) Nutrition Notes Initial or Follow up Reassessment Current Diagnosis Acute Kidney Injury,CKD(stage I-IV),Sepsis,Hypertension, Respiratory Failure Other Pertinent Diagnosis hx CVA with dysphasia, PEG, dementia Labs/Tests Na 142 K 4.0 Pertinent Medications Reviewed Height 5 ft 8 in Weight 76.204 kg [place] Body Weight (kg) 70.00 BMI 25.5 Subjective/Other Information Osmolite running at 50 ml/hr. Pt tolerating TF. Labs improved. Percent of energy/protein needs met: 100%/100% Burn Absent Trauma Absent GI Symptoms None Current % PO Negligible Minimum of two criteria No Muscle Mass Mild Depletion (non-severe) #1 Nutrition Diagnosis Inadequate oral intake Diagnosis Progress(for reassessment Continues documentation) Is patient on ventilator? Yes Is Patient Ambulatory and/or Out of Bed No REE-([facility]-confined to bed) [phone] Calculation Used for Recommendations [facility] Additional Notes Protein:61-152g (0.8-2g/kg) CKD, JULIA, and vent needs Fluid: 1 ml/kcal or per MD Nutrition Intervention Change Diet Order: TF Nutrition Support: Osmolite 1.5 at 50ml/hr Flush 250 ml q4h for hypernatremia Flush 170 ml q4h once hypernatremia resolves Kcal 1,800 Protein (gm) 75 Fluid (mL) 914 Goal #1 TF tolerance Goal #2 Meet at least 75% of energy and protein needs via TF Anticipated Discharge Needs: TF Follow-Up By: 12/30/19 Additional Comments F/U for TF tolerance
== END 2019-12-26 18:00 | DRG 870 ==
LOC: ED 04:17 → CC1 07:52 → IMCU 12-24 16:30
PROVIDERS: ADMIT Internal Medicine; ATTEND Internal Medicine
PROC: 5A1955Z Respiratory Ventilation, Greater than 96 Consecutive Hours (ICD-10-PCS; principal; 2019-12-12)
PROC: 0BH17EZ Insertion of Endotracheal Airway into Trachea, Via Natural or Artificial Opening (ICD-10-PCS; 2019-12-12)
PROC: 4A033R1 Measurement of Arterial Saturation, Peripheral, Percutaneous Approach (ICD-10-PCS; 2019-12-12)
PROC: 30233N1 Transfusion of Nonautologous Red Blood Cells into Peripheral Vein, Percutaneous Approach (ICD-10-PCS; 2019-12-14)
PROC: 05HY33Z Insertion of Infusion Device into Upper Vein, Percutaneous Approach (ICD-10-PCS; 2019-12-17)
PROC: 5A09357 Assistance with Respiratory Ventilation, Less than 24 Consecutive Hours, Continuous Positive Airway Pressure (ICD-10-PCS; 2019-12-23)
PROC: 5A09357 Assistance with Respiratory Ventilation, Less than 24 Consecutive Hours, Continuous Positive Airway Pressure (ICD-10-PCS; 2019-12-24)
PROC: 5A09357 Assistance with Respiratory Ventilation, Less than 24 Consecutive Hours, Continuous Positive Airway Pressure (ICD-10-PCS; 2019-12-26)
DX: A41.02 Sepsis due to Methicillin resistant Staphylococcus aureus (principal); R65.21 Severe sepsis with septic shock; I21.A1 Myocardial infarction type 2; I63.9 Cerebral infarction, unspecified; J69.0 Pneumonitis due to inhalation of food and vomit; N17.0 Acute kidney failure with tubular necrosis; J96.01 Acute respiratory failure with hypoxia; G93.40 Encephalopathy, unspecified; R47.01 Aphasia; E87.2 Acidosis; I13.0 Hypertensive heart and chronic kidney disease with heart failure and stage 1 through stage 4 chronic kidney disease, or unspecified chronic kidney disease; D69.6 Thrombocytopenia, unspecified; D64.9 Anemia, unspecified; F03.90 Unspecified dementia, unspecified severity, without behavioral disturbance, psychotic disturbance, mood disturbance, and anxiety; R13.12 Dysphagia, oropharyngeal phase; E78.5 Hyperlipidemia, unspecified; R00.0 Tachycardia, unspecified; I50.9 Heart failure, unspecified; N18.3 Chronic kidney disease, stage 3 (moderate); R74.0 Nonspecific elevation of levels of transaminase and lactic acid dehydrogenase [LDH]
CPT/HCPCS: 31500; 36415; 36600; 71045; 74018; 80048; 80053; 80061; 80202; 81001; 82140; 82803; 82805; 82962; 83735; 84100; 84484; 85025; 85027; 85610; 85730; 86850; 86900; 86901; 86920; 87040; 87070; 87076; 87186; 87205; 93005; 93010; 94002; 94003; 94640; 94660; 94760; 96361; 96365; 96367; 96372; 96375; G0378; A9270-GY; J0360; J0692; J1644; J2020; J2060; J2704; J3010; J3370; J3420; J7030; J7040; J7042; J7050; P9016